=== PATIENT | female | born 1955 | race Caucasian/White ===

== ENCOUNTER 2025-05-21 05:54 | Day surgery (SDC) | payer MEDICARE, OTHER, SELFPAY ==
[2025-05-21] VITALS (13 sets, daily range): BP systolic 142–191; BP diastolic 56–94; PULSE 60–100; RESP 16; TEMP 36.1–36.3; O2SAT 94–100; BMI 37.5
--- OUTSIDE RECORDS SUMMARY | 2025-05-21 06:05 | XMS RPT_ITS | CCD ---
Author Organization [facility] Care Team Providers Care Vice President Integrated Name Role Phone Ld Mon MD Primary Care Provider ELIESER DAWN, DR JAFFE Primary Care Physician SCARLET DAWN, NATHANIEL Attending Unavailable ELVIA DAWN, CHELLE Consulting Unavailable CRISSY DAWN, MIN Attending Unavailable TOMÁS DAWN, DR ORELLANA Admitting Unavailable ELIESER DAWN, DR JAFFE Primary Care Unavailable WILBER BAIRES MD, THOR Consulting Unavailable JOSE DAWN, DR SEAN Ibrahim Consulting Jennifer ALDANA MD, DR PRO WINSTON Consulting Lorava jania DYER MD, MANUEL Gonzales Consulting Unavailable PRO PETERS MD Consulting Unavailable SCARLET DAWN, NATHANIEL Consulting Unavailable THELMA FENTON Referring Unavailable THELMA FENTON Attending Unavailable LD MON Primary Care Unavailable ROBERT FONG Referring Unavailable THELMA FENTON Attending Unavailable LD MON Primary Care Unavailable LD MON MD Primary Care Unavailable LD MON MD Admitting Unavailable LD MON MD Attending Unavailable LD MON MD Consulting Unavailable PROVIDER, UNKNOWN Consulting Unavailable PROVIDER, UNKNOWN Consulting Unavailable PROVIDER, UNKNOWN Consulting Unavailable LD MON MD Consulting Unavailable ALEXANDER AREVALO MD Attending Unavailable ALEXANDER AREVALO MD Primary Care Unavailable ALEXANDER AREVALO MD Admitting Unavailable PROVIDER, UNKNOWN Consulting Unavailable PROVIDER, UNKNOWN Consulting Unavailable PROVIDER, UNKNOWN Consulting Unavailable LD MON MD Consulting Unavailable ALEXANDER AREVALO MD Attending Unavailable ALEXANDER AREVALO MD Primary Care Unavailable ALEXANDER AREVALO MD Admitting Unavailable PROVIDER, UNKNOWN Consulting Unavailable PROVIDER, UNKNOWN Consulting Unavailable PROVIDER, UNKNOWN Consulting Unavailable LD MON MD Primary Care Unavailable LD MON MD Admitting Unavailable LD MON MD Attending Unavailable LD MON MD Consulting Unavailable PROVIDER, UNKNOWN Consulting Unavailable PROVIDER, UNKNOWN Consulting Unavailable PROVIDER, UNKNOWN Consulting Unavailable LD MON MD Primary Care Unavailable LD MON MD Admitting Unavailable LD MON MD Attending Unavailable LD MON MD Consulting Unavailable PROVIDER, UNKNOWN Consulting Unavailable PROVIDER, UNKNOWN Consulting Unavailable PROVIDER, UNKNOWN Consulting Unavailable ZEV HUGGINS Attending Unavailable LD MON MD Consulting Unavailable LD MON MD Referring Unavailable ZEV HUGGINS Admitting Unavailable ZEV HUGGINS Primary Care Unavailable PROVIDER, UNKNOWN Consulting Unavailable PROVIDER, UNKNOWN Consulting Unavailable PROVIDER, UNKNOWN Consulting Unavailable Gabriele DANW, Dr. Nava Attending Provider [phone] Elieser DAWN, Dr. Jaffe Primary Care Provider Elieser DAWN, Dr. Jaffe Referring Provider Ld Mon Referring Unavailable Bud Suazo Attending Unavailable Ld Mon Primary Care Unavailable Bud Suazo Admitting Unavailable Bud Suazo Attending Unavailable Bud Suazo Referring Unavailable Ld Mon Primary Care Unavailable Medications Current Medications Medication Drug Class(es) Dates Sig (Normalized) Sig (Original) apixaban 5 mg oral tablet (4 sources) Factor Xa Inhibitor Start: 05-03-2023 Eliquis 5 mg oral tablet Dose : 5 mg = 1 tab(s), Oral, BID, # 60 tab(s), 5 Refill(s), 95 Start Date: 05/03/23 Status: Ordered Start: 05-03-2023 Eliquis 5 mg o ral tablet Dose : 5 mg = 1 tab(s), Oral, BID, # 60 tab(s), 5 Refill(s), 95 Start Date: 05/03/23 Status: Ordered Start: 04-27-2023 End: 05-03-2023 Eliquis 5 mg oral tablet Dos e : 10 mg = 2 tab(s), Oral, BID, # 24 tab(s), 0 Refill(s), 95 Start Date: 04/27/23 Stop Date: 05/03/23 Status: Ordered CholestOff oral caplet (2 sources) Start: 04-22-2023 CholestOff ora l caplet Oral, qDay, 0 Refill(s) Start Date: 04/22/23 Status: Ordered Clobetasol 0.05 % drops,suspension (1 source) Start: 04-25-2025 Clobetasol 0.0 5 % drops,suspension Active 1 NMA OPHTHALMIC TWICE A DAY April 25, 2025 12:00am clobetasol 0.05% topical foam (2 sources) Start: 04-22-2023 clobetasol 0.0 5% topical foam Apply 1 karime, Topical, qDay, # 50 gram(s), 0 Refill(s), Foam, 95 Start Date: 04/22/23 Status: Ordered fluticasone propionate 0.05 mg/actuat metered dose nasal spray (4 sources) Corticosteroid Start: 04-25-2025 take 50 ug nasal route once daily Fluticasone Propionate (Flonase Allergy Relief) 50 mcg/actuation spray,suspension Active 1 NMA INTRANASAL daily April 25, 2025 12:00am administer into each nostril Start: 04-22-2023 take 1 dose nasal ro phyllis once daily Flonase 50 mcg/inh nasal spray Dose = 1 spray(s), Nostril, each, qDay, 0 Refill(s) Start Date: 04/22/23 Status: Ordered fluticasone prop ionate (FLONASE NASAL) Use in the nose once daily. 0 Active Comment on above: Use in the nose once daily. hydroCHLOROthiazide 12.5 mg / lisinopril 10 mg oral tablet (4 sources) Thiazide Diuretic, Angiotensin Converting Enzyme Inhibitor Start: 04-25-2025 Lisinopril-Hydroc hlorothiazide 10-12.5 mg tablet Active 1 {tbl} PO daily April 25, 2025 12:00am Start: 04-22-2023 take 1 tablet by urmila th once daily hydrochlorothiazide-lisinopril 12.5 mg-1 0 mg oral tablet Dose = 1 tab(s), Oral, Daily, # 30 tab(s), 0 Refill(s) Start Date: 04/22/23 Status: Ordered take 1 tablet by urmila th once daily lisinopril-hydrochlorothiazide 10-12.5 m g per tablet Take 1 tablet by mouth once daily. 0 Active Comment on above: Take 1 tablet by urmila th once daily. ivermectin 10 mg/ml topical cream (2 sources) Antiparasitic, Pediculicide Start: 3 ivermectin 1% topical cream Apply 1 karime, Topical, qDay, # 30 gram(s), 0 Refill(s), Cream, 95 Start Date: 04/22/23 Status: Ordered Ivermectin-Metronidazo l-Niacin 1-1-4 % gel (1 source) Start: 5 Ivermectin-Metroni dazol-Niacin 1-1-4 % gel Active NMA TOPICAL April 25, 2025 12:00am meclizine hydrochloride 25 mg oral tablet (4 sources) Antiemetic Start: 5 take 1 tablet by mouth four times daily as needed Meclizine 25 mg tablet Active 25 mg PO 4 TIMES DAILY as needed April 25, 2025 12:00am Start: 04-22-2023 meclizine 25 m g oral tablet Dose : 25 mg = 1 tab(s), Oral, QID, PRN as needed for dizziness, # 30 tab(s), 0 Refill(s) Start Date: 04/22/23 Status: Ordered take 1 tablet by urmila every eight hours as needed meclizine (ANTIVERT) 25 mg tab Take 25 mg by mouth three times daily as needed (dizziness). 0 Active Comment on above: Take 25 mg by mouth three times daily as needed (dizziness). metoprolol tartrate 50 mg oral tablet (7 sources) beta-Adrenergic Marin Start: 5 take 1 tablet by mouth twice daily Metoprolol Tartrate 50 mg tablet Active 50 mg PO TWICE A DAY April 25, 2025 12:00am Start: 04-22-2023 End: 04-27-2023 metoprolol tartrate 50 mg or al tablet Start: 04/27/23 8:00:00 EDT, Dose = 50 mg, = 1 tab(s), Oral, 1st dose location: [facility], , 04/22/23 18:20:00 EDT Start Date: 04/27/23 Stop Date: 04/27/23 Status: Completed Start: 10-12-2022 take 1 tablet by urmila twice daily metoprolol tartrate, short acting, (LOPRESSOR) 50 mg tablet Take 50 mg by mouth twice daily. 0 10/12/2022 Active take 1 tablet by urmila th twice daily, then take 1 tablet by mouth every twenty-four hours metoprolol succinate XL, long acting, 25 mg 24 hr tablet Take 25 mg by mouth twice daily. 0 Active Comment on above: Take 25 mg by mouth twice daily. Take 50 mg by mouth twice daily. Multiple Vitamins oral capsule (2 sources) Start: 04-22-2023 take 1 capsule by mouth once daily Multiple Vitamins oral capsule Dose = 1 cap(s), Oral, Daily, 0 Refill(s) Start Date: 04/22/23 Status: Ordered TNF-Med (2 sources) Start: 04-22-2023 TNF-Med 0 Refill(s), 95 Start Date: 04/22/23 Status: Ordered Completed/Discontinued Medications Medication Drug Class(es) Dates Sig (Normalized) Sig (Original) clobetasol propionate 0.5 mg/ml topical solution (1 source) Corticosteroid Start: 09-20-2022 Clobetasol Propionate (TEMOVATE) 0.05 % external solution once daily. 0 09/20/2022 Active Comment on above: once daily. ivermectin/metronid azole/niaci (IVERMECTIN-METRONI DAZOL-NIACIN TOPICAL) (1 source) ivermectin/metro ni dazole/niaci (IVERMECTIN-METRON IDAZOL-NIACIN TOPICAL) Apply to affected area as needed. 0 Active Comment on above: Apply to affected ar ea as needed. Phytosterol-Panteth ine (Cholestoff Complete) 300-100 mg capsule (1 source) Start: 04-25-2025 Phytosterol-Pantet karla (Cholestoff Complete) 300-100 mg capsule Active NMA PO April 25, 2025 12:00am phytosterol/panteth ine (CHOLESTOFF COMPLETE ORAL) (1 source) phytosterol/pant et karla (CHOLESTOFF COMPLETE ORAL) Take by mouth once daily. 0 Active Comment on above: Take by mouth once d aily. polyethylene glycol 3350 612710 mg / potassium chloride 2970 mg / sodium bicarbonate 6740 mg / sodium chloride 5860 mg / sodium sulfate 58183 mg powder for oral solution (1 source) Osmotic Laxative Start: 11-17-2022 End: 11-17-2022 peg 3350-Electrolytes (GOLYTELY) 236-22.74-6.74 -5.86 gram suspension Indications: History of colonic polyps Take 4,000 mL by mouth one time only for 1 dose. Refer to printed prep instructions from your provider. 4000 mL 0 11/17/2022 11/17/2022 Comment on above: Take 4,000 mL by urmila th one time only for 1 dose. Refer to printed prep instructions from your provider. Problems Active Problems Problem Classification Problem Date Documented Da te Episodic/Chronic Disorders of lipid metabolism (3 sources) Pure hypercholesterolemi a, unspecified; Translations: [Pure hypercholesterolemi a, unspecified] Onset: 10-08-2024 Chronic Other and unspecified benign neoplasm (1 source) History of polyp of colon; Translations: [Personal history of colonic polyps] Episodic Other hematologic conditions (1 source) Abnormal finding on evaluation procedure; Translations: [Other specified abnormalities of plasma proteins] Episodic Other nutritional; endocrine; and metabolic disorders (1 source) Morbid obesity; Translations: [Morbid (severe) obesity due to excess calories] Chronic Phlebitis; thrombophlebitis and thromboembolism (1 source) 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; Translations: [Chronic embolism and thrombosis of left femoral vein] Chronic Pulmonary heart disease (1 source) Other pulmonary embolism without acute cor pulmonale; Translations: [Other pulmonary embolism without acute cor pulmonale] Episodic Residual codes; unclassified (1 source) Family history of cancer of colon; Translations: [Family history of malignant neoplasm of digestive organs] Episodic Thyroid disorders (1 source) Thyroid nodule; Translations: [Nontoxic single thyroid nodule] 04-25-2025 Chronic Past or Other Problems Problem Classification Problem Date Documented Da te Episodic/Chronic Hemorrhoids (1 source) Internal hemorrhoids; Translations: [Other hemorrhoids] Onset: 6 09-13-2006 Episodic Other and unspecified benign neoplasm (1 source) Personal history of colonic polyps; Translations: [History of colonic polyps] Onset: Episodic Other gastrointestinal disorders (1 source) Diarrhea; Translations: [Diarrhea, unspecified] Onset: 6 09-13-2006 Episodic Residual codes; unclassified (1 source) Family history of malignant neoplasm of gastrointestinal tract; Translations: [Family history of malignant neoplasm of digestive organs] Onset: 6 09-13-2006 Episodic Residual codes; unclassified (1 source) Family history of malignant neoplasm of digestive organs; Translations: [Family history of malignant neoplasm of gastrointestinal tract] Onset: 6 Episodic Results Test Name Value Interpretation Reference Range Facility Supplemental Reporton 2024 Supplemental Report . Pathology Reports Accession: Collected Date/Time: Received Date/Time: Pathologist: [id number] 03/27/2025 08:55 EDT 03/28/2025 08:59 EDT MD ROBERT ARGUETA Supplemental Report SUPPLEMENTAL: AFIRMA-Genomic Sequencing Production Operator Results: Nodule: A, Thyroid, Right Side, 3.1 cm Genomic Sequencing Production Operator: Suspicious Risk of Malignancy: 50% MTC: Negative Parathyroid: Negative BRAF p. V600E c. 1799T>A: Negative RET/PTC1, RET/PTC3: Not Detected AFIRMA XPression [place]: No Variant/Fusion Detected Nodule Result Summary: The result of this 3.1 cm [place] III nodule A is Afirma GSC Suspicious which suggests a risk of cancer of approximately 50%. The Risk of Malignancy of a GSC Suspicious Afirma XA negative sample remains approximately 50%. Clinical correlation and surgical resection should be considered. Complete report scanned into chart. Verified by Diagnostic interpretation performed at [facility] ROBERT ARGUETA MD Sign out Date: 04/25/2025 16:11 Performing Lab: [facility], [address] [place] [address] Pathology Dept Non-Airplane Pilot Crop Dusting Cytology Report CLINICAL INFORMATION: nontoxic single thyroid nodule [id number] DIAGNOSTIC CATEGORY: ATYPIA OF UNDETERMINED SIGNIFICANCE Per [place] Cytology protocol, this specimen has been sent for Afirma Genomic Sequencing Production Operator test. Results to follow in about 2 weeks. SPECIMEN: Right thyroid FNA GROSS DESCRIPTION: # of Monolayers: 1 Volume (ml) 30 Color: fixed clear pink needle rinse in CytoLyt Afirma sample collected for reflex testing SUGGESTION/EDUCATIONAL NOTES: This specimen was evaluated using criteria described in The [place] System for Reporting Thyroid Cytopathology, Second Edition (2018). The following risk of malignancy rates are estimates based on published studies and includes data extrapolation. Individual institutions may have different rates. Actual management may depend on other factors (e.g., clinical. Sonographic) besides the FNA interpretation. Pathology Reports Accession: Collected Date/Time: Received Date/Time: Pathologist: [id number] 03/27/2025 08:55 EDT 03/28/2025 08:59 EDT MD ROBERT ARGUETA SUGGESTION/EDUCATIONAL NOTES: Diagnostic Category Risk of Usual management malignancy (%) Non diagnostic or Unsatisfactory 5-10 Repeat FNA with US guidance Benign 0-3 Clinical and US follow up Atypia of Undetermined 10-30 Repeat FNA, molecular Significance testing or lobectomy Follicular neoplasm or Suspicious 25-40 Molecular testing, for follicular neoplasm lobectomy Suspicious for Malignancy 50-75 Near-total thyroidectomy or lobectomy Malignant 97-99 Near-total thyroidectomy or lobectomy Verified by Pathology Report verified by [facility] Screened by: GEETHA RM Electronically signed by ROBERT ARGUETA MD Sign-Out Date: 03/29/2025 10:45 Performing Lab: [facility], [address] [place] [address] Pathology Dept Disclaimer If ancillary studies were utilized, the following Laboratory Developed Test (LDT) disclaimer will apply: Under CLIA requirements, [facility] is qualified to perform high complexity testing. For all ancillary stains, positive and negative controls stain appropriately. Performance characteristics of immunohistochemical and chromogenic in-situ hybridization tests have been determined by [facility]. These tests are used for clinical purposes, They should not be regarded as investigational or for research. Normal [facility] Surgery Visit Reporton 04-25 Surgery Visit Report [facility] [address] [place] [address] OFFICE VISIT Date of Service: 04/25/25 MR#: [id number] Acct: [id number] Name: ASLHEY TUTTLE Rep #: [id number] : 1955 Provider: Dr. Bud falk MD Age/Sex: 69/F Location: [facility] Status: Signed Intake Vital Signs 04/25/25 13:00 Height 5 ft 4 in Weight: 209 lb 8 oz BMI 35.9 BP 168/82 H Blood Pressure Location Rt brachial Position Sitting Respiration 18 Pulse 72 Pulse Source Monitor Temp 97.5 F L Temp Source Temporal Pulse Oximetry (%) 98 Oxygen Delivery Method room air Intake Visit Reasons: SUSPICIOUS THYROID BIOPSY Chief Complaint: discuss thyroid surgery Is patient in pain?: No Allergies No Known Allergies Allergy (Unverified 04/25/25 12:37) Medications ???Medication ???Instructions ???Recorded ???Confirmed ???Type clobetasol 0.05 % eye 1 drp ophthalmic (eye) BID 5 04/25/25 History drops,suspension fluticasone propionate 50 1 spray intranasal QDAY 04/25/25 0 04/25/25 History mcg/actuation nasal spray,suspension (Flonase Allergy Relief) ivermectin 1 %-metronidazole 1 ea topical 04/25/25 04/25/25 Histo ry %-niacinamide 4 % topical gel lisinopril 10 1 tab PO QDAY 04/25/25 04/25/25 Hi story mg-hydrochlorothiazide 12.5 mg tablet meclizine 25 mg tablet 25 mg PO 4X/DAY PRN 04/25/2504/25 History metoprolol tartrate 50 mg tablet 50 mg PO BID 04/25/25 04/25/25 His tory phytosterol 300 mg-pantethine 100 cap PO 04/25/25 04/25/25 History mg capsule (CholestOff Complete) Have you fallen in the past year?: No PFSH Medical History (Updated 04/25/25 @ 22:[address] Bud Suazo MD) Cataract Thyroid nodule Surgical History (Updated 04/25/25 @ 12:36 by Ghada Burnette LPN) Status post Mohs micrographic surgery for basal cell carcinoma (BCC) Hx laparoscopic cholecystectomy Family History (Updated 04/25/25 @ 13:00 by Ghada Burnette LPN) Mother Thyroid disorder Thyroid cancer Sister Thyroid disorder Brother Thyroid disorder Sister Thyroid disorder Social History (Updated 04/25/25 @ 12:37 by Ghada Burnette LPN) Smoking Status: Never smoker alcohol intake: never substance use type: does not use HPI HPI HPI: Patient is a 69-year-old female who presents for evaluation of a newly diagnosed right thyroid nodule. They are referred for surgical consultation from Dr. Mon. This was discovered incidentally during a workup on 02/08/2025 for patient diagnosis of bronchopneumonia. They do not experience difficulty with swallowing. They do not complain of a new cough. They do not appreciate new voice changes. They did have a history of snoring/sleep apnea. Additionally, their weight has been stable and they do not have a history of weight gain/loss or an inability to lose despite intentional effort. There is no history of recent fatigue. They do not have a history of heat or cold intolerance. Other symptoms include: Pertinent positives: No lower extremity swelling, pertinent negatives: No palpitations or irregular bowel habits. They do have a family history of thyroid disorders and shared that her mother was diagnosed with thyroid cancer and under thyroid hormone supplementation. There is no history of prior radiation exposure. Previous work-up has included thyroid ultrasound. This study was performed on 02/20/2025 and showed a right thyroid lobe measuring 4.9 x 2.1 x 2.6 cm. Within this lobe radiology identified a nodule measuring 3.4 x 1.9 x 2.2 cm and described as a TI-RADS 4 lesion being both solid and hypoechoic. The left thyroid lobe measured 4.9 x 1.4 x 1.6 cm. Within this lobe radiology identified a nodule measuring 2 subcentimeter lesions that were rated TI-RADS 2 and TI-RADS 4 by their sonographic appearance. An FNA has been performed of the dominant right thyroid nodule and final Afirma testing returned suspicious. Other tests include: TSH: 2.41 (10/08/2024) ROS General General: No weight change, appetite, fatigue, colon cancer, breast cancer or weakness HEENT HEENT: Yes eye surgery; No difficulty swallowing, eye injury, swollen glands or hoarseness Endo Endocrine: No thyroid disease, diabetes mellitus, thyroid cancer, Hair loss, heat intolerance or cold intolerance Skin Skin: No rash or changing moles Musc Musculoskeletal: No back problems, arthritis, rheumatoid arthritis, gout or joint pain Cardio Cardiovascular: Yes high blood pressure; No murmur, pacemaker, heart disease, atrial fibrillation, heart attack, heart stent, palpitations, shortness of breath with exertion or chest pain Psych Psychiatric: No depression, anxiety or hearing voices Resp Respiratory: No shortness of breath, No sleep apnea, No cough, (more content not included)... Normal [facility] CBC (NO DIFF)on 04-22-2025 CBC panel Auto (Bld) Normal [facility] Comment on above: Result Comment: CBC( WITHOUT DIFFERENTIAL) Performed By: #### 2 [id number] #### [facility],[address] [place] [address]246 Erythrocyte distribution width (RBC) [Ratio] 13.3 % Normal 12.0 - 15.6 [facility] Comment on above: Performed By: #### 2 [id number] #### [facility],[address] [place] [address] 09697 Hematocrit (Bld) [Volume fraction] 39.2 % Normal 34.0 - 46.0 [facility] Comment on above: Performed By: #### 2 [id number] #### [facility],[address] [place] [address] 73665 Hemoglobin (Bld) [Mass/Vol] 13.6 g/dL Normal 12.0 - 16.0 [facility] Comment on above: Performed By: #### 2 [id number] #### [facility],[address] [place] [address] 97704 MCH (RBC) [Entitic mass] 31 pg Normal 27 - 33 [facility] Comment on above: Performed By: #### 2 [id number] #### [facility],[address] [place] [address] 59574 MCHC 35 X10 3 Normal 32 - 36 [facility] Comment on above: Performed By: #### 2 36024 #### [facility],[address] [place] [address] 68931 MCV (RBC) [Entitic vol] 88 fL Normal 80 - 99 [facility] Comment on above: Performed By: #### 2 [id number] #### [facility],[address] [place] [address] 85522 PLATELET 237 x10EE3/UL Normal 150 - 450 [facility] Comment on above: Performed By: #### 2 [id number] #### [facility],[address] [place] [address] 10534 Platelet mean volume (Bld) [Entitic vol] 8.3 fL Normal 6.6 - 10.5 [facility] Comment on above: Performed By: #### 2 [id number] #### [facility],[address] [place] [address] 10825 RBC 4.47 x 10EE6/UL Normal 4.10 - 5.30 [facility] Comment on above: Performed By: #### 2 [id number] #### [facility],[address] [place] [address] 60871 WBC 5.7 x 10EE3/UL Normal 4.5 - 10.8 [facility] Comment on above: Performed By: #### 2 [id number] #### [facility],[address] [place] [address] 43822 CMP with eGFRon 04-22-2025 AGE 69 years Normal [facility] Comment on above: Performed By: #### 2 [id number] #### [facility],[address] [place] [address] 55893 Albumin [Mass/Vol] 3.4 g/dL Normal 3.4 - 5.0 [facility] Comment on above: Performed By: #### 2 22485 #### [facility],[address] [place] [address] 95376 Albumin/Globulin [Mass ratio] 1.1 {ratio} Normal 0.9 - 1.6 [facility] Comment on above: Performed By: #### 2 13242 #### [facility],[address] [place] [address] 84043 ALK PHOS 87 U/L Normal 46 - 116 [facility] Comment on above: Performed By: #### 2 [id number] #### [facility],[address] [place] [address] 12809 ALT [Catalytic activity/Vol] 21 U/L Normal 16 - 63 [facility] Comment on above: Performed By: #### 2 [id number] #### [facility],[address] [place] [address] 94157 Anion gap [Moles/Vol] 12 mmol/L Normal 10 - 20 [facility] Comment on above: Performed By: #### 2 [id number] #### [facility],[address] [place] [address] 27134 AST [Catalytic activity/Vol] 13 U/L Normal 13 - 39 [facility] Comment on above: Performed By: #### 2 [id number] #### [facility],[address] [place] [address] 70261 B/C RATIO 32 ratio High 0 - 30 [facility] Comment on above: Performed By: #### 2 89631 #### [facility],[address] [place] [address] 46185 Bilirubin [Mass/Vol] 0.5 mg/dL Normal 0.2 - 1.0 [facility] Comment on above: Performed By: #### 2 62192 #### [facility],[address] [place] [address] 36646 Calcium [Mass/Vol] 9.1 mg/dL Normal 8.5 - 10.1 [facility] Comment on above: Performed By: #### 2 19664 #### [facility],[address] [place] [address] 65068 Chloride [Moles/Vol] 109 mmol/L High 98 - 107 [facility] Comment on above: Performed By: #### 2 00853 #### [facility],[address] [place] [address] 82035 CMP with eGFR Normal [facility] Comment on above: Result Comment: COMP REHENSIVE METABOLIC PANEL Performed By: #### 2 95446 #### [facility],[address] [place] [address] 55763 CO2 [Moles/Vol] 28.2 mmol/L Normal 21.0 - 32.0 [facility] Comment on above: Performed By: #### 2 12906 #### [facility],[address] [place] [address] 09543 Creatinine [Mass/Vol] 0.73 mg/dL Normal 0.55 - 1.02 [facility] Comment on above: Performed By: #### 2 23048 #### [facility],[address] [place] [address] 91953 GFR/1.73 sq M.predicted among non-blacks MDRD (S/P/Bld) [Vol rate/Area] mL/min/{1.73_m2} Normal 60 - 999 [facility] Comment on above: Performed By: #### 2 42357 #### [facility],[address] [place] [address] Result Comment: ACCO RDING TO THE NATIONAL KIDNEY DISEASE EDUCATION PROGRAM(NKDE), A NORMAL eGFR IS A VALUE GREATER THAN OR EQUAL TO 60 ML/MIN/1.73 SQ METERS. CHRONIC KIDNEY DISEASE: <60mL/MIN/1.73 SQ METERS KIDNEY FAILURE: <15mL/MIN/1.73 SQ METERS THIS TEST SHOULD ONLY BE USED FOR PATIENTS 18 YEARS OF AGE AND OLDER. Globulin (S) [Mass/Vol] 3.0 g/dL Normal 1.5 - 3.8 [facility] Comment on above: Performed By: #### 2 76703 #### [facility],[address] [place] [address] 25001 Glucose [Mass/Vol] 93 mg/dL Normal 74 - 106 [facility] Comment on above: Performed By: #### 2 63668 #### [facility],[address] [place] [address] 21239 Potassium [Moles/Vol] 3.8 mmol/L Normal 3.5 - 5.1 [facility] Comment on above: Performed By: #### 2 38719 #### [facility],[address] [place] [address] 36351 Protein [Mass/Vol] 6.4 g/dL Normal 6.4 - 8.2 [facility] Comment on above: Performed By: #### 2 89125 #### [facility],[address] [place] [address] 43836 Sodium [Moles/Vol] 145 mmol/L Normal 136 - 145 [facility] Comment on above: Performed By: #### 2 01956 #### [facility],[address] [place] [address] 44451 Urea nitrogen [Mass/Vol] 23 mg/dL High 7 - 18 [facility] Comment on above: Performed By: #### 2 08158 #### [facility],[address] [place] [address] 71814 LIPID PROFILEon 04-22-2025 Cholesterol [Mass/Vol] 251 mg/dL High 0 - 240 [facility] Comment on above: Performed By: #### 2 99820 #### [facility],[address] [place] [address] 90595 Cholesterol in HDL [Mass/Vol] 62 mg/dL High 40 - 60 [facility] Comment on above: Performed By: #### 2 71315 #### [facility],[address] [place] [address] 05460 Cholesterol in LDL [Mass/Vol] 172 mg/dL High 0 - 129 [facility] Comment on above: Performed By: #### 2 08642 #### [facility],[address] [place] [address] 12424 Cholesterol.total/Cho lesterol in HDL [Mass ratio] 4.0 {ratio} Normal 0.0 - 5.0 [facility] Comment on above: Performed By: #### 2 84022 #### [facility],[address] [place] [address] 88165 Lipid 1996 panel Normal [facility] Comment on above: Result Comment: LIPI D PROFILE Performed By: #### 2 41402 #### [facility],[address] [place] [address] 58880 Triglyceride [Mass/Vol] 87 mg/dL Normal 0 - 150 [facility] Comment on above: Performed By: #### 2 74924 #### [facility],[address] [place] [address] 44222 3D MAMM BILAT SCREENon 03-29 3D MAMM BILAT SCREEN [place] [address] Patient: ASHLEY TUTTLE Phone#: : 1955 Age: 69 Gender: F Pt. Type: Out Account: [id number] Location: [facility] Ordering: LD MON Exam Date: 03/29/2025/14:45 Family Phys: Charge Code: [id number] Physician: Freeborn Order #: [id number] Dose#: PROCEDURE: BILATERAL SCREENING BREAST TOMOSYNTHESIS MAMMOGRAM WITH CAD COMPARISON: [facility], 3D BILAT SCREEN, 02/01/2023, 13:56. [facility], 3D BILAT SCREEN, 03/12/2024, 14:08. INDICATIONS: Screening. BREAST COMPOSITION: There are scattered areas of fibroglandular density FINDINGS: DIAGNOSTIC CATEGORY 1--NEGATIVE NO CHANGE FROM COMPARISON ASSESSMENT. RIGHT BREAST: No significant suspicious finding. No significant change has occurred. LEFT BREAST: No significant suspicious finding. No significant change has occurred. RECOMMENDATIONS: ROUTINE MAMMOGRAM AND CLINICAL EVALUATION IN 12 MONTHS. PLEASE NOTE: A NORMAL MAMMOGRAM DOES NOT EXCLUDE THE POSSIBILITY OF BREAST CANCER. A CLINICALLY SUSPICIOUS PALPABLE LUMP SHOULD BE BIOPSIED. THIS FACILITY UTILIZES A REMINDER SYSTEM TO ENSURE THAT ALL PATIENTS RECEIVE REMINDER LETTERS FOR APPOINTMENTS. THIS INCLUDES REMINDERS FOR ROUTINE MAMMOGRAMS, DIAGNOSITC MAMMOGRAMS, OR OTHER BREAST IMAGING INTERVENTIONS WHEN APPROPRIATE. THIS PATIENT WILL BE PLACED IN THE APPROPRIATE REMINDER SYSTEM. Dictated by: Deborah Swift MD on 03/29/2025 at 14:59 Approved by: Deborah Swift MD on 03/29/2025 at 15:04 Normal [facility] Non-Airplane Pilot Crop Dusting Cytology Reporton Non-Airplane Pilot Crop Dusting Cytology Report . Pathology Reports Accession: Collected Date/Time: Received Date/Time: Pathologist: [id number] 03/27/2025 08:55 EDT 03/28/2025 08:59 MD ROBERT MARIO Non-Airplane Pilot Crop Dusting Cytology Report CLINICAL INFORMATION: nontoxic single thyroid nodule [id number] DIAGNOSTIC CATEGORY: ATYPIA OF UNDETERMINED SIGNIFICANCE Per [place] [facility]ology protocol, this specimen has been sent for [employer] Operator test. Results to follow in about 2 weeks. SPECIMEN: Right thyroid FNA GROSS DESCRIPTION: # of Monolayers: 1 Volume (ml) 30 Color: fixed clear pink needle rinse in CytoLyt Afirma sample collected for reflex testing SUGGESTION/EDUCATIONAL NOTES: This specimen was evaluated using criteria described in The [place] System for Reporting Thyroid Cytopathology, Second Edition (2018). The following risk of malignancy rates are estimates based on published studies and includes data extrapolation. Individual institutions may have different rates. Actual management may depend on other factors (e.g., clinical. Sonographic) besides the FNA interpretation. Diagnostic Category Risk of Usual management malignancy (%) Non diagnostic or Unsatisfactory 5-10 Repeat FNA with US guidance Benign 0-3 Clinical and US follow up Atypia of Undetermined 10-30 Repeat FNA, molecular Significance testing or lobectomy Follicular neoplasm or Suspicious 25-40 Molecular testing, for follicular neoplasm lobectomy Suspicious for Malignancy 50-75 Near-total thyroidectomy or lobectomy Malignant 97-99 Near-total thyroidectomy or lobectomy Verified by Pathology Report verified by [facility] Screened by: GEETHA Electronically signed by ROBERT ARGUETA MD Sign-Out Date: 03/29/2025 10:45 Performing Lab: [facility], [address] [place] [address] Pathology Dept Disclaimer If ancillary studies were utilized, the following Laboratory Developed Test (LDT) disclaimer will apply: Pathology Reports Accession: Collected Date/Time: Received Date/Time: Pathologist: [id number] 03/27/2025 08:55 EDT 03/28/2025 08:59 MD ROBERT MARIO Disclaimer Under CLIA requirements, [facility] Pathology Laboratory is qualified to perform high complexity testing. For all ancillary stains, positive and negative controls stain appropriately. Performance characteristics of immunohistochemical and chromogenic in-situ hybridization tests have been determined by [facility] Pathology Laboratory. These tests are used for clinical purposes, They should not be regarded as investigational or for research. Normal [facility] FINE NEEDLE ASPIR W/ US GUID E 1ST LESIONon 03-27-2025 FINE NEEDLE ASPIR W/ US GUIDE 1ST LESION [address] [address] Patient: ASHLEY TUTTLE Phone#: : 1955 Age: 69 Gender: F Pt. Type: Out Account: [id number] Location: 052 Ordering: ALEXANDER MICKEY Exam Date: 03/27/2025/12:56 Family Phys: LD OMN Charge Code: [id number] Physician: Freeborn Order #: [id number] Dose#: This report includes an Addendum and supersedes previous reports for this exam. PROCEDURE: FINE NEEDLE ASPIRATION WITH US GUIDANCE COMPARISON: None. INDICATIONS: Right thyroid nodule DESCRIPTION: The patient was informed of the nature of the procedure, alternatives and risks. Questions were answered and informed consent obtained. Using ultrasound the nodule was localized. The skin was marked. The skin was prepped and draped in the usual manor. Lidocaine was administered locally. Ultrasound-guided fine needle aspiration of the right thyroid nodule was performed in the usual sterile manner. FINDINGS: SPECIMEN #, LOCATION: Large right thyroid nodule measuring 3.1 x 2.1 x 2.2 cm. Five passes were performed. NEEDLE: 22 gauge and 25 gauge needles were used. MEDICATION: Superficial and deep 2% lidocaine. COMPLICATIONS: None. PATHOLOGY LAB: Specimen submitted to cytology CONCLUSION: Uneventful fine needle aspiration of right thyroid nodule. Dictated by: Shruti Cobos MD on 03/27/2025 at 15:03 Approved by: Shruti Cobos MD on 03/27/2025 at 15:08 ADDENDUM: Right thyroid fine needle aspiration performed 03/27/2025. The nodule that was aspirated is consistent with the nodule on the 02/20/2025 ultrasound which measured 3.1 x 2.1 x 2.2 centimeters. Dictated by: Shruti Cobos MD on 04/08/2025 at 16:33 Approved by: Shruti Cobos MD on 04/08/2025 at 16:36 Normal [facility] US THYROIDon 02-20-2025 THYROID [place] [address] Patient: ASHLEY TUTTLE Phone#: : 1955 Age: 69 Gender: F Pt. Type: Out Account: [id number] Location: [facility] Ordering: ALEXANDER AREVALO Exam Date: 02/20/2025/12:50 Family Phys: LD MON Charge Code: [id number] Physician: Freeborn Order #: [id number] Dose#: PROCEDURE: THYROID ULTRASOUND COMPARISON: None. INDICATIONS: Right thyroid nodule TECHNIQUE: High-resolution ultrasound was performed of the thyroid gland. FINDINGS: RIGHT LOBE: There is a large solid hypoechoic nodule in the right lobe of the thyroid measuring 34 x 19 x 22 cm, a TR 4 nodule. The right lobe of the thyroid measures 4.9 x 2.1 x 2.6 cm. LEFT LOBE: There are 2 nodules in the left lobe. In the superior lobe near the isthmus a solid hypoechoic nodule measures 9 x 6 x 9 mm, TR 4 nodule. In the inferior thyroid there is a solid and cystic nodule measuring 5 x 4 x 5 mm, TR 2 nodule, not suspicion. The left lobe of the thyroid measures 4.9 by 1.4 x 1.6 cm. ISTHMUS: Normal. No visible mass, cyst, calcification, enlargement, or abnormal echotexture. Isthmus measures 4.0 cm. OTHER: None. CONCLUSION: 1. Right TR 4, recommend fine needle aspiration 2. Left TR 4 nodule, not meeting criteria for follow-up Dictated by: Shruti Cobos MD on 02/20/2025 at 14:01 Approved by: Shruti Cobos MD on 02/20/2025 at 14:10 Normal [facility] CBC + DIFFon 02-07-2025 Baso # 0.02 x10EE3/UL Normal 0.00 - 0.10 [facility] Comment on above: Performed By: #### 2 10097 #### [facility],[address] [place], [place] [id number] Basophils/100 WBC (Bld) 0.3 % Normal 0.0 - 2.0 [facility] Comment on above: Performed By: #### 2 36103 #### [facility],[address] [place] [address] CBC + DIFF Normal [facility] Comment on above: Result Comment: CBC- COMPLETE BLOOD COUNT Performed By: #### 2 44427 #### [facility],[address] [place] [address] EO # 0.10 x10EE3/UL Normal 0.00 - 0.50 [facility] Comment on above: Performed By: #### 2 95479 #### [facility],[address] [place] [address] Eosinophils/100 WBC (Bld) 1.4 % Normal 0.0 - 7.0 [facility] Comment on above: Performed By: #### 2 96180 #### [facility],[address] [place] [address] Erythrocyte distribution width (RBC) [Ratio] 13.4 % Normal 12.0 - 15.6 [facility] Comment on above: Performed By: #### 2 52251 #### [facility],[address] [place] [address] Hematocrit (Bld) [Volume fraction] 40.5 % Normal 34.0 - 46.0 [facility] Comment on above: Performed By: #### 2 84307 #### [facility],[address] [place], [place] [address] Hemoglobin (Bld) [Mass/Vol] 13.7 g/dL Normal 12.0 - 16.0 [facility] Comment on above: Performed By: #### 2 37522 #### [facility],[address] [place], [place] [address] Lymph # 0.53 x10EE3/UL Low 0.80 - 2.80 [facility] Comment on above: Performed By: #### 2 49681 #### [facility],[address] [place] [address] 81398 Lymphocytes/100 WBC (Bld) 7.7 % Low 20.0 - 45.0 [facility] Comment on above: Performed By: #### 2 58138 #### [facility],[address] [place] [address] 90527 MANUAL DIFF N/A Normal [facility] Comment on above: Performed By: #### 2 16566 #### [facility],[address] [place] [address] 15136 MCH (RBC) [Entitic mass] 29 pg Normal 27 - 33 [facility] Comment on above: Performed By: #### 2 89382 #### [facility],[address] [place] [address] MCHC 34 X10 3 Normal 32 - 36 [facility] Comment on above: Performed By: #### 2 10325 #### [facility],[address] [place] [address] 33159 MCV (RBC) [Entitic vol] 87 fL Normal 80 - 99 [facility] Comment on above: Performed By: #### 2 01144 #### [facility],[address] [place] [address] 34156 [place] # 0.39 x10EE3/UL Normal 0.20 - 1.00 [facility] Comment on above: Performed By: #### 2 63402 #### [facility],[address] [place] [address] 60525 MONOS % 5.6 % Normal 0.0 - 10.0 [facility] Comment on above: Performed By: #### 2 16535 #### [facility],[address] [place] [address] 24257 Morphology Chris (Bld) [Interp] N/A Normal [facility] Comment on above: Performed By: #### 2 40526 #### [facility],[address] [place] [address] 01371 Neut # 5.86 x10EE3/UL Normal 1.50 - 7.10 [facility] Comment on above: Performed By: #### 2 45068 #### [facility],[address] [place] [address] 13661 Neutrophils/100 WBC (Bld) 85.0 % High 46.0 - 76.0 [facility] Comment on above: Performed By: #### 2 48498 #### [facility],[address] [place] [address] 69984 PLATELET 177 x10EE3/UL Normal 150 - 450 [facility] Comment on above: Performed By: #### 2 86211 #### [facility],[address] [place] [address] 90953 Platelet mean volume (Bld) [Entitic vol] 7.2 fL Normal 6.6 - 10.5 [facility] Comment on above: Result Comment: AUTO MATED DIFFERENTIAL Performed By: #### 2 31500 #### [facility],[address] [place] [address] 45990 RBC 4.67 x 10EE6/UL Normal 4.10 - 5.30 [facility] Comment on above: Performed By: #### 2 65685 #### [facility],[address] [place] [address] 42011 WBC 6.9 x 10EE3/UL Normal 4.5 - 10.8 [facility] Comment on above: Performed By: #### 2 12964 #### [facility],[address] [place] [address] 54669 CMP with eGFRon 02-07-2025 AGE 69 years Normal [facility] Comment on above: Performed By: #### 2 39048 #### [facility],[address] [place] [address] 84137 Albumin [Mass/Vol] 3.4 g/dL Normal 3.4 - 5.0 [facility] Comment on above: Performed By: #### 2 27283 #### [facility],[address] [place] [address] 96915 Albumin/Globulin [Mass ratio] 1.0 {ratio} Normal 0.9 - 1.6 [facility] Comment on above: Performed By: #### 2 22573 #### [facility],[address] [place] [address] 84709 ALK PHOS 92 U/L Normal 46 - 116 [facility] Comment on above: Performed By: #### 2 93916 #### [facility],[address] [place] [address] 99160 ALT [Catalytic activity/Vol] 21 U/L Normal 16 - 63 [facility] Comment on above: Performed By: #### 2 34671 #### [facility],[address] [place] [address] 90521 Anion gap [Moles/Vol] 12 mmol/L Normal 10 - 20 [facility] Comment on above: Performed By: #### 2 64068 #### [facility],[address] [place] [address] 76478 AST [Catalytic activity/Vol] 11 U/L Low 13 - 39 [facility] Comment on above: Performed By: #### 2 19253 #### [facility],[address] [place] [address] 17326 B/C RATIO 31 ratio High 0 - 30 [facility] Comment on above: Performed By: #### 2 87371 #### [facility],[address] [place] [address] 56747 Bilirubin [Mass/Vol] 0.7 mg/dL Normal 0.2 - 1.0 [facility] Comment on above: Performed By: #### 2 04667 #### [facility],[address] [place] [address] 12508 Calcium [Mass/Vol] 8.5 mg/dL Normal 8.5 - 10.1 [facility] Comment on above: Performed By: #### 2 61527 #### [facility],[address] [place], [place] [address] Chloride [Moles/Vol] 104 mmol/L Normal 98 - 107 [facility] Comment on above: Performed By: #### 2 55219 #### [facility],[address] [place] [address] CMP with eGFR Normal [facility] Comment on above: Result Comment: COMP REHENSIVE METABOLIC PANEL Performed By: #### 2 75069 #### [facility],[address] [place] [address] CO2 [Moles/Vol] 25.2 mmol/L Normal 21.0 - 32.0 [facility] Comment on above: Performed By: #### 2 42636 #### [place] [address] Creatinine [Mass/Vol] 0.81 mg/dL Normal 0.55 - 1.02 [facility] Comment on above: Performed By: #### 2 04681 #### [facility],[address] [place] [address] GFR/1.73 sq M.predicted among non-blacks MDRD (S/P/Bld) [Vol rate/Area] mL/min/{1.73_m2} Normal 60 - 999 [facility] Comment on above: Performed By: #### 2 17300 #### [facility],[address] [place] [address] Result Comment: ACCO RDING TO THE NATIONAL KIDNEY DISEASE EDUCATION PROGRAM(NKDE), A NORMAL eGFR IS A VALUE GREATER THAN OR EQUAL TO 60 ML/MIN/1.73 SQ METERS. CHRONIC KIDNEY DISEASE: <60mL/MIN/1.73 SQ METERS KIDNEY FAILURE: <15mL/MIN/1.73 SQ METERS THIS TEST SHOULD ONLY BE USED FOR PATIENTS 18 YEARS OF AGE AND OLDER. Globulin (S) [Mass/Vol] 3.3 g/dL Normal 1.5 - 3.8 [facility] Comment on above: Performed By: #### 2 92764 #### [facility],[address] [place] [address] 58408 Glucose [Mass/Vol] 111 mg/dL High 74 - 106 [facility] Comment on above: Performed By: #### 2 53056 #### [facility],[address] [place] [address] 52267 Potassium [Moles/Vol] 3.9 mmol/L Normal 3.5 - 5.1 [facility] Comment on above: Performed By: #### 2 40914 #### [facility],[address] [place] [address] 79643 Protein [Mass/Vol] 6.7 g/dL Normal 6.4 - 8.2 [facility] Comment on above: Performed By: #### 2 86567 #### [facility],[address] [place] [address] 25418 Sodium [Moles/Vol] 137 mmol/L Normal 136 - 145 [facility] Comment on above: Performed By: #### 2 00684 #### [facility],[address] [place] [address] 97257 Urea nitrogen [Mass/Vol] 25 mg/dL High 7 - 18 [facility] Comment on above: Performed By: #### 2 13446 #### [facility],[address] [place] [address] 28100 CORONAVIRUS (SARS) ANTIGEN T ESTon 02-07-2025 EXTERNAL QC DONE? YES Normal [facility] Comment on above: Performed By: #### 2 98941 #### [facility],[address] [place] [address] 39273 INTERNAL CONTROL PASS Normal [facility] Comment on above: Performed By: #### 2 39865 #### [facility],[address] [place] [address] 52370 SARS ANTIGEN Negative Normal NORMAL: NEGATIVE [facility] Comment on above: Performed By: #### 2 59283 #### [facility],[address] [place] [address] 42500 SEND TO ? NO Normal [facility] Comment on above: Result Comment: SARS -CoV-2 THIS TEST IS BEING USED UNDER THE FDA EUA PROCEDURE. THIS ASSAY HAS BEEN VALIDATED AT [facility] FOR USE WITH NASAL AND NASOPHARYNGEAL SWAB SPECIMENS. INTERPRETIVE DATA TEST RESULTS SHOULD ALWAYS BE CONSIDERED IN THE CONTEXT OF CLINICAL OBSERVATIONS AND EPIDEMIOLOGICAL DATA IN MAKING FINAL DIAGNOSIS AND PATIENT MANAGEMENT DECISIONS. PATIENT MANAGEMENT SHOULD FOLLOW CURRENT CDC GUIDELINES. THE PITO SARS ANTIGEN JOSE DOES NOT DIFFERENTIATE BETWEEN SARS-CoV & SARS-CoV-2. A POSITIVE TEST RESULT INDICATES THE PRESENCE OF SARS-CoV-2 NUCLEOCAPSID PROTEIN ANTIGEN, AND THE PATIENT IS INFECTED WITH THE VIRUS AND PRESUMED TO BE CONTAGIOUS. A NEGATIVE TEST RESULT FOR THIS TEST MEANS THAT SARS-CoV-2 NUCLEOCAPSID PROTEIN ANTIGEN WAS NOT PRESENT IN THE SPECIMEN ABOVE THE LIMIT OF DETECTION. HOWEVER, A NEGATIVE RESULT DOES NOT RULE OUT COVID-19 AND SHOULD NOT BE USED THE SOLE BASIS FOR TREATMENT OR PATIENT MANAGEMENT DECISIONS. A NEGATIVE RESULT DOES NOT EXCLUDE THE POSSIBILITY OF COVID-19. NEGATIVE RESULTS, FROM PATIENTS WITH SYMPTOM ONSET BEYOND FIVE DAYS, SHOULD BE TREATED PRESUMPTIVE AND CONFIRMATION WITH A MOLECULAR ASSAY, IF NECESSARY, FOR PATIENT MANAGEMENT, MAY BE PERFORMED. WHEN DIAGNOSTIC TESTING IS NEGATIVE, THE POSSIBLILTY OF A FALSE NEGATIVE RESULT SHOULD BE CONSIDERED IN THE CONTEXT OF A PATIENT'S RECENT EXPOSURES AND THE PRESENCE OF CLINICAL SIGNS AND SYMPTOMS CONSISTENT WITH COVID-19. THE POSSIBILITY OF A FALSE NEGATIVE RESULT SHOULD ESPECIALLY BE CONSIDERED IF THE PATIENT'S RECENT EXPOSURES OR CLINICAL PRESENTATION INDICATE THAT COVID-19 IS LIKELY, AND DIAGNOSTIC TESTS FOR OTHER CAUSES OF ILLNESS (e.g., OTHER RESPIRATORY ILLNESS) ARE NEGATIVE. IF COVID-19 IS STILL SUSPECTED BASED ON EXPOSURE HISTORY TOGETHER WITH OTHER CLINICAL FINDINGS, RE-TESTING SHOULD BE CONSIDERED BY HEALTHCARE PROVIDERS IN CONSULTATION WITH PUBLIC HEALTH AUTHORITIES. Performed By: #### [id number] #### [facility],[address] [place] [id number] CHEST (PE PROTOCOL)on CT CHEST (PE PROTOCOL) [place] [id number] Patient: ASHLEY TUTTLE Phone#: : [phone] Age: 69 Gender: F Pt. Type: ER Account: [id number] Location: 052 Ordering: CHONG ANDRES Exam Date: 02/07/2025/9:13 Family Phys: LD MON Charge Code: [id number] Physician: Freeborn Order #: [id number] Dose#: [id number] PROCEDURE: CT CHEST WITH CONTRAST FOR PE COMPARISON: [facility], CT, CHEST PE W CON, 07/29/2023, 6:55. INDICATIONS: Pulmonary disease. TECHNIQUE: After obtaining the patient's consent, CT images were obtained with non-ionic intravenous contrast material. Multi-planar images were created to optimize visualization of vascular anatomy with MPR/MIPS and 3D imaging. All CT scans at this facility use dose modulation, iterative reconstruction, and/or weight based dosing when appropriate to reduce radiation dose to as low as reasonably achievable. IV CONTRAST: Omnipaque 350,100ml TOTAL DOSE: 8.90 CTDIvol(mGy) FINDINGS: VASCULATURE: No pulmonary embolism. AORTA: No aortic aneurysm LUNGS: Patchy ill-defined nodules in the left upper lobe posteriorly and in the superior aspect of the left lower lobe. Findings are consistent with multifocal infiltrates. Left lower lobe bronchial wall thinning, series 4, image 40. Dependent changes in the right lung. TALYA: There are reactive hilar lymph nodes. MEDIASTINUM: There are reactive mediastinal lymph nodes. CARDIAC: Cardiomegaly PLEURA: Normal. No mass or effusion. CHEST WALL: Normal. No mass or axillary adenopathy. LIMITED ABDOMEN: Normal. Limited images of the upper abdomen are unremarkable. BONES: Normal. No bony lesion or fracture. OTHER: Enlarged heterogeneous right lobe of the thyroid measuring 4.1 x 1.9 x 2.3 cm. CONCLUSION: 1. Left multifocal infiltrates/pneumonia. Continued Report - Page 2 of 2 Patient: ASHLEY TUTTLE Phone#: : 1955 Age: 69 Gender: F Pt. Type: ER Account: [id number] Location: 052 Ordering: CHONG ANDRES Exam Date: 02/07/2025/9:13 Family Phys: LD MON Charge Code: 725218 Physician: Freeborn Order #: [id number] Dose#: [id number] 2. Enlarged heterogeneous right lobe of the thyroid, suspect large underlying nodule. Recommend dedicated thyroid ultrasound for further characterization. Dictated by: Shruti Cobos MD on 02/07/2025 at 9:53 Approved by: Shruti Cobos MD on 02/07/2025 at 10:00 Normal [facility] D-DIMER, QUANTITATIVEon 04-0 D-DIMER QUANT 267 ng/ml High 0 - 230 [facility] Comment on above: Performed By: #### [id number] #### [facility],[address] [place], [place] [address] D-DIMER, QUANTITATIVE Normal [facility] Comment on above: Result Comment: CECI T D-DIMER Performed By: #### [id number] #### [facility],[address] [place], [place] [address] ED MED ADMINISTRATION DETAIL on 02-07-2025 ED MED ADMINISTRATION DETAIL Yarn Twister Medication [place] [address] [id number] 02/07/2025 Patient: ASHLEY TUTTLE Sex: Female : 1955 Age: 69y MEASUREMENTS: Wt: 95.3 kg, Ht/Tommy: 63.0 in, BMI: 37.20 ALLERGIES: No known drug allergies Medication Ordered Medication Administration Date/Time Albuterol-Ipratropiu 08:51 04 Albuterol-Ipratropium (DuoNeb) 3mg/0.5mg Neb Tx 3 Given m (DuoNeb) mL given. Given by the respiratory therapist. Allergies verified and 08:51 02/07/2025 3mg/0.5mg Neb Tx confirmed 5 rights. Information reviewed with patient. - 08:51 Aj Griffith, 3 mL (NOW x1) Raimundo SullivanT. R.R.T. Not Scanned CefTRIAXone 09:38 0403 CefTRIAXone (Rocephin) IVPB 2gm/50ml NS 2 g Started (Rocephin) IVPB started at 100 mL/hr diluted in sodium chloride IVPB 0.9 % 09:38 02/07/2025 2gm/50ml NS 2 g Minibag+ 50 mL via Site# 1. Allergies verified and confirmed 5 Rob Eastep, R.N. diluted in sodium rights. IV patency established. IV site checked: no pain, redness, or Stopped chloride IVPB 0.9 % swelling. IV flushed thoroughly pre-medication administration. 10:10 02/07/2025 Minibag+ 50 mL at Information reviewed with patient including reason for taking this Rob Eastep, R.N. 100 mL/hr (NOW x1) medication, signs of allergic reaction and precautions. Verbalizes Scanned understanding. Completed per protocol. - 09:39 Rob Eastep, R.N. 10:10 02/07 Medication Discontinued: IV completed. Total amount infused: 50 mL. - 10:28 Rob Eastep, R.N. 1 of 2 Yarn Twister Medication Ordered Medication Administration Date/Time MethylPREDNISolo 09:35 02/07 MethylPREDNISolone Sodium Succ (Solu-Medrol) IVP Given ne Sodium Succ 125 mg given via Site# 1. Allergies verified and confirmed 5 rights. 09:35 02/07/2025 (Solu-Medrol) IVP IV patency established. IV site checked: no pain, redness, or Rob Eastep, R.N. 125 mg (NOW x1) swelling. IV flushed thoroughly pre-medication administration. IVP Scanned given by nurse. Information reviewed with patient including reason for taking this medication, signs of allergic reaction and precautions. Verbalizes understanding. - 09:38 Rob Eastep, R.N. 2 of 2 Normal [facility] ED NURSES CLINICAL NOTEon ED NURSES CLINICAL NOTE Nurse Narrative Nurse Clinical Narrative [address] [place] [address] [id number] 02/07/2025 07:11:00 Patient: ASHLEY TUTTLE Sex: Female : 1955 Age: 69y Disposition: Discharge to Home Disposition Decision Time: 10:09 02/07/2025 Departure Time: 10:02/07/2025 TRIAGE Arrived by private vehicle. Historian: (patient). Unaccompanied. Primary physician (Elieser). Triage time: 07:02/07/2025. Acuity: LEVEL 3. Chief Complaint: COUGH. Onset. (4 days). The patient has had difficulty breathing. SEPSIS SCREEN: NEGATIVE. SIRS criteria negative. No possible sources of infection. -- 07:02/07/25 EDT Brock Aldana R.N. 07:02/07/25. BP: 212/94 MAP: 133. HR: 62. RR: 18. O2 saturation: 92% Temperature: 99.7 F. Pain level now 0/10. -- 07:02/07/25 GENEVA Aldana R.N. Measurements: 07:02/07/25 Wt: 95.3 kg, Ht/Tommy: 63.0 in, BMI: 37.20 -- 07:02/07/25 GENEVA Aldana R.N. Medications: metoprolol tartrate 50 mg tablet: 1 tablet twice a day. -- 08:02/07/25 GENEVA Aldana R.N. lisinopril 10 mg-hydrochlorothiazide 12.5 mg tablet: 1 tablet once a day. -- 08:02/07/25 GENEVA Aldana R.N. 1 of 4 Nurse Narrative Allergies: no known drug allergies -- 07:02/07/25 GENEVA Aldana R.N. Problems: Hypertension -- 07:02/07/25 GENEVA Aldana R.N. ADDITIONAL SURGERIES: Cholecystectomy -- 07:02/07/25 GENEVA Aldana R.N. varicose veins -- 07:02/07/25 GENEVA Aldana R.N. History 07:02/07/25. SOCIAL HX: Never smoker. No alcohol use or drug use. The patient has not traveled outside the [place] Infectious disease exposure: No infectious disease exposure. ABUSE ASSESSMENT: The patient answered yes to the question(s) Do you feel safe in your home? and no to the question(s) Are you afraid to go home?. SELF HARM ASSESSMENT: Self harm assessment was performed. The patient answered no to the question(s) Have you recently felt down, depressed, or hopeless? and Do you have thoughts of harming or killing yourself?. -- 07:33 02/07/25 EDT Brock Aldana R.N. 07:35 02/07/25. FALL RISK ASSESSMENT: Fall risk assessment completed. Risk factors identified include patient age greater than 65 years. -- 07:35 02/07/25 DIPESHT Brock Aldana R.N. Interventions 07:28 02/07/25. Identification band on patient. Advanced care plan discussed with patient (full code). -- 07:33 02/07/25 DIPESHT Brock Aldana R.N. PHYSICAL ASSESSMENT 2 of 4 Nurse Narrative 08:16 02/07/25. Ambulatory to room. GENERAL / NEURO / PSYCH: Alert. Oriented X 4. Appears in no acute distress. HEENT: Pupils equal, round and reactive to light. Ears within normal limits. Nares within normal limits. Mouth within normal limits upon inspection. Pharynx within normal limits. Voice within normal limits. Mucous membranes are pink. RESPIRATORY: Respirations not labored. The patient can speak in full sentences. Wheezes bilaterally. CVS: Normal sinus rhythm noted. Capillary refill less than 2 seconds. SKIN: Skin is warm and dry. Normal skin turgor. -- 08:16 02/07/25 DIPESHT Brock Aldana R.N. NURSING PROGRESS NOTES 07:50 02/07/25. Site #1 started via IV in the right antecubital space with a 20g angiocath with good blood return; 1 attempt. Blood drawn: rainbow set tube(s). Labeled in the presence of the patient and sent to the lab. Saline lock flushed with 5 mL saline. -- 07:59 02/07/25 EDT Rob Rodrigez R.N. 08:45 02/07/25. Patient identifiers checked. Call light placed in reach. Side rails up x 2. Bed placed in lowest position. Brakes of bed on. ( Pt reports significant improvement in symptoms since arriving to the ED.). -- 09:02 02/07/25 GENEVA Rodrigez R.N. 08:51 02/07/25. Albuterol-Ipratropium (DuoNeb) 3mg/0.5mg Neb Tx 3 mL given. Given by the respiratory therapist. Allergies verified and confirmed 5 rights. Information reviewed with patient. -- 08:51 02/07/25 EDT Aj Griffith R.R.T. 09:08 02/07/25. Patient transported to [place]. -- 09:09 02/07/25 EDT Rob Rodrigez R.N. 09:35 02/07/25. MethylPREDNISolone Sodium Succ (Solu-Medrol) IVP 125 mg given via Site# 1. Allergies verified and confirmed 5 rights. IV patency established. IV site checked: no pain, redness, or swelling. IV flushed thoroughly pre-medication administration. IVP given by nurse. Information reviewed with patient including reason for taking this medication, signs of allergic reaction and precautions. Verbalizes understanding. -- 09:38 02/07/25 EDT Rob Rodrigez R.N. 09:38 02/07/25. CefTRIAXone (Rocephin) IVPB 2gm/50ml NS 2 g started at 100 mL/hr diluted in sodium chloride IVPB 0.9 % Minibag+ 50 mL via Site# 1. Allergies verified and confirmed 5 rights. IV patency established. IV site checked: no pain, redness, or swelling. IV flushed thoroughly pre-medication administration. Information reviewed with p (more content not included)... Normal [facility] ED ORDER SHEET (CPOE ONLY)on 02-07-2025 ED ORDER SHEET (CPOE ONLY) Order Sheet Order Sheet [address] [place] [address] [id number] 02/07/2025 Patient: ASHLEY TUTTLE Sex: Female : 1955 Age: 69y MEASUREMENTS: Wt: 95.3 kg, Ht/Tommy: 63.0 in, BMI: 37.20 ALLERGIES: No known drug allergies MEDICATION/IV/DRIP/FLU ID ORDERS Order Description Priority Entered Acknowledged Completed Albuterol-Ipratropium (DuoNeb) 07:41 02/07/2025 08:41 08:51 3mg/0.5mg Neb Tx3 mL (NOW Zev Huggins, 02/07/2025 02/07/2025 x1) Aj Kim R.R.TIrma R.R.TIrma CefTRIAXone (Rocephin) IVPB 09:19 02/07/2025 09:21 09:39 2gm/50ml NS2 g diluted in Chong Andres D.O. 02/07/2025 02/07/2025 sodium chloride IVPB 0.9 % Rob Uribe, Minibag+ 50 mL at 100 mL/hr R.N. R.N. (NOW x1) MethylPREDNISolone Sodium 09:19 02/07/2025 09:21 09:38 Succ (Solu-Medrol) [id number] mg Chong Andres D.O. 02/07/2025 02/07/2025 (NOW x1) Rob Uribe R.N. R.N. LAB ORDERS Order Description Priority Entered Acknowledged Collected Completed CBC w Diff Stat Stat 07:41 02/07/2025 07:59 02/07/2025 08:47 02/07/2025 Rob Hubbard Lucas Eastep, 1 of 3 Order Sheet Ti.Giselle Guerrier.N. R.N. CMP Stat Stat 07:41 02/07/2025 07:59 02/07/2025 08:47 02/07/2025 Rob Hubbard Lucas Eastep, D.O. R.N. R.N. BNP Stat Stat 07:41 02/07/2025 07:59 02/07/2025 08:47 02/07/2025 Rob Hubbard Lucas Eastep, D.O. R.N. R.N. Troponin-I Stat Stat 07:41 02/07/2025 07:59 02/07/2025 08:47 02/07/2025 Rob Hubbard Lucas Eastep, D.O. R.N. R.N. EKG - ED Stat Stat 07:41 02/07/2025 07:59 02/07/2025 09:01 02/07/2025 Rob Hubbard Lucas Eastep, D.O. R.N. R.NIrma Flu Swab (Influenzae Stat 07:41 02/07/2025 07:59 02/07/2025 08:48 02/07/2025 AAg) Stat Rob Hubbard Lucas Eastep, D.O. R.N. RSerg Rapid COVID (SARS) Stat 07:41 02/07/2025 07:59 02/07/2025 08:48 02/07/2025 ANTIGEN TEST Stat Rob Hubbard Lucas Eastep, D.O. R.NIrma RIrmaNIrma D-Dimer Stat Stat 08:39 02/07/2025 08:47 02/07/2025 08:47 02/07/2025 Lola Shelley Lucas Eastep, R.NIrma RSerg DIAGNOSTIC STUDY ORDERS 2 of 3 Order Sheet Order Description Priority Entered Acknowledged Completed CT Chest PE Study Stat Stat 08:59 02/07/2025 09:01 09:01 Chong Andres D.O. 02/07/2025 02/07/2025 Rob Uribe R.N. R.NIrma Order Comments: 08:59 02/07/2025: Status: Not . Chong Andres D.O. Reason for Study: Pulmonary Disease STAFF ORDERS Order Description Priority Entered Acknowledged Collected Completed IV Saline Lock 07:41 02/07/2025 07:59 02/07/2025 08:47 02/07/2025 Rob Hubbard Lucas Eastep, D.O. R.N. RIrmaNIrma [Electronically signed by Zev Huggins D.O. (02/07/2025 14:07 EDT)] 3 of 3 Normal [facility] ED PHYSICIAN CLINICAL REPORT on 02-07-2025 ED PHYSICIAN CLINICAL REPORT Narrative Physician Clinical [address] [address] [id number] 02/07/2025 07:11:00 Patient: ASHLEY TUTTLE Sex: Female : 1955 Age: 69y Disposition: Discharge to Home Disposition Decision Time: 10:09 02/07/2025 Departure Time: 10:26 02/07/2025 Measurements Wt: 95.3 kg, Ht/Tommy: 63.0 in, BMI: 37.20 Initial Vital Sign Measured Time BP MAP HR RR O2Sat ETCO2 Temp Pain GCS RTS 07:33 02/07/2025 212/94 133 62 18 92% 99.7 F 0 Time Seen: 07:29 02/07/2025. Arrived- By private vehicle. Historian- patient. HISTORY OF PRESENT ILLNESS Chief Complaint: DYSPNEA. (Tuesday started w cough. Kept getting worse and then today she had an episode where she was coughing so much she felt very short breath says occasionally productive. she denies any fever chills or sweats. She would have a headache she has had no body aches and she presents to the emergency department she has used an inhaler in the past he has also had a pulmonary embolism in the past. She has a history of hypertension she is not on blood thinners at this time does smoke.). The patient has had sputum production and a cough. No fever or chills. REVIEW OF SYSTEMS SKIN: No skin rash. : No difficulty with urination. NEUROLOGICAL: No headache. GI: No nausea or vomiting. THROAT: No sore throat. EYES: No eye irritation. CONSTITUTIONAL: The patient has not had weight loss. 1 of 15 Narrative PAST HISTORY See nurses notes. Hypertension Surgeries: Cholecystectomy varicose veins Medications: lisinopril 10 mg-hydrochlorothiazide 12.5 mg tablet: 1 tablet once a day. metoprolol tartrate 50 mg tablet: 1 tablet twice a day. Allergies: no known drug allergies SOCIAL HISTORY Never smoker. No alcohol use. ADDITIONAL NOTES The nursing notes have been reviewed. PHYSICAL EXAM Appearance: Alert. No acute distress. Eyes: Pupils equal, round and reactive to light. Eyes normal inspection. ENT: Ears normal. Nose normal. Neck: Normal inspection. No jugular venous distention. CVS: Normal heart rate. Heart sounds normal. Respiratory: No respiratory distress. Painless inspiration. Wheezing present. Abdomen: Soft and nontender. Skin: Normal skin color. Normal skin turgor. Extremities: Extremities exhibit normal ROM. No lower extremity edema. Neuro: Oriented X 3. No motor deficit. 2 of 15 Narrative LABS, X-RAYS, AND EKG Laboratory Tests: CBC + DIFF Final TEENA: 02/07/2025 07:50:00 EDT MsgRcvd: 02/07/2025 08:10 EDT Lab Test Result Reference Status Received Comments 02/07/2025 08:10 CBC-COMPLETE CBC + DIFF Final EDT BLOOD COUNT 02/07/2025 08:10 WBC 6.9 x 10/UL 4.5 - 10.8 Final EDT 02/07/2025 08:10 RBC 4.67 x 10/UL 4.10 - 5.30 Final EDT 02/07/2025 08:10 HEMOGLOBIN 13.7 g/dl 12.0 - 16.0 Final EDT 02/07/2025 08:10 HEMATOCRIT 40.5 % 34.0 - 46.0 Final EDT 02/07/2025 08:10 MCV 87 fl 80 - 99 Final EDT 02/07/2025 08:10 MCH 29 pg 27 - 33 Final EDT 02/07/2025 08:10 MCHC 34 X10 3 32 - 36 Final EDT 02/07/2025 08:10 RDW/CV 13.4 % 12.0 - 15.6 Final EDT 02/07/2025 08:10 PLATELET 177 x10/UL 150 - 450 Final EDT 3 of 15 Narrative Lab Test Result Reference Status Received Comments 02/07/2025 08:10 AUTOMATED MPV 7.2 fl 6.6 - 10.5 Final EDT DIFFERENTIAL 85.0 % 02/07/2025 08:10 NEUT % 46.0 - 76.0 Final Above high normal EDT 7.7 % 02/07/2025 08:10 LYMPH % 20.0 - 45.0 Final Below low normal EDT 02/07/2025 08:10 MONOS % 5.6 % 0.0 - 10.0 Final EDT 02/07/2025 08:10 EO % 1.4 % 0.0 - 7.0 Final EDT 02/07/2025 08:10 BASO % 0.3 % 0.0 - 2.0 Final EDT 0.53 x10/UL 02/07/2025 08:10 Lymph # 0.80 - 2.80 Final Below low normal EDT 02/07/2025 08:10 Neut # 5.86 x10/UL 1.50 - 7.10 Final EDT 02/07/2025 08:10 [place] # 0.39 x10/UL 0.20 - 1.00 Final EDT 02/07/2025 08:10 EO # 0.10 x10/UL 0.00 - 0.50 Final EDT 02/07/2025 08:10 Baso # 0.02 x10/UL 0.00 - 0.10 Final EDT 02/07/2025 08:10 MANUAL DIFF N/A New Order EDT 02/07/2025 08:10 MORPHOLOGY N/A New Order EDT 4 of 15 Narrative CMP with eGFR Final TEENA: 02/07/2025 07:50:00 EDT MsgRcvd: 02/07/2025 08:34 EDT Lab Test Result Reference Status Received Comments COMPREHENSIVE 02/07/2025 CMP with eGFR Final METABOLIC 08:34 EDT PANEL 02/07/2025 SODIUM 137 mmol/l 136 - 145 Final 08:34 EDT 02/07/2025 POTASSIUM 3.9 mmol/L 3.5 - 5.1 Final 08:34 EDT 02/07/2025 CHLORIDE 104 mmol/L 98 - 107 Final 08:34 EDT 02/07/2025 CO2 25.2 mmol/L 21.0 - 32.0 Final 08:34 EDT 111 mg/dl 02/07/2025 GLUCOSE Above high 74 - 106 Final 08:34 EDT normal 25 mg/dl 02/07/2025 BUN Above high 7 - 18 Final 08:34 EDT normal 02/07/2025 CREATININE 0.81 mg/dl 0. (more content not included)... Normal [facility] ED SUPER BILLon 02-07-2025 ED SUPER BILL [address] [place] [address] [id number] 02/07/2025 Patient: ASHLEY TUTTLE Sex: Female : 1955 Age: 69y Facility Professional Category Item Description Code Code Quantity Fee Total Nurse/E/M EMERGENCY 940088 1 $0.00 $0.00 DEPT VISIT HIGH SEVERITYFUNCJ (69823-83) Nurse/IV/IM/Infusions Drip/IVPB initial 100440 1 $0.00 $0.00 (60907) Nurse/IV/IM/Infusions IVP additional 505264 1 $0.00 $0.00 push (17449) Nurse/Procedures Respiratory 548231 1 $0.00 $0.00 therapy - inhalation (68458) Grand $0.00 Total Providers Zev Huggins D.O. Chief Complaint DYSPNEA. 1 of 2 Superbill Principal Diagnosis Acute dyspnea. Bronchopneumonia. thyroid nodule needs an ultrasound and probable biopsy. ICD-10 Codes J18.0: Bronchopneumonia, unspecified organism R06.09: Other forms of dyspnea 2 of 2 Normal [facility] ED VISIT SUMMARYon ED VISIT SUMMARY Visit Overview Visit Overview [address] [place] [address] [id number] 02/07/2025 Patient: ASHLEY TUTTLE Sex: Female : 1955 Age: 69y 02/07/2025 02:42 PM EDT ED Arrival:07:11 02/07/2025 EDT Status:not Recent Travel:no Language:eng Adv Directive: Isolation Status: Ethnicity:N Fall Risk:risk Infectious Disease Exposure:no Measurements:5'3 / 160.0 Self-Harm Status:risk Sepsis Screen:negative cm 210.0 lb / 95.3 kg Chief Complaint:COUGH, (4 days), and (Omran) ALLERGIES No Known Drug Allergies HOME MEDICATIONS lisinopril 10 mg-hydrochlorothiazide 12.5 mg tablet: 1 tablet once a day. metoprolol tartrate 50 mg tablet: 1 tablet twice a day. PAST MEDICAL HISTORY / PROBLEMS Hypertension See nurses notes 1 of 3 Visit Overview PAST SURGICAL HISTORY Cholecystectomy varicose veins SOCIAL HISTORY Smoking status: No Alcohol use: No Drug use: No ED COURSE MEDICATIONS GIVEN IN EMERGENCY DEPARTMENT 08:51 02/07/25 Albuterol-Ipratropium (DuoNeb) 3mg/0.5mg Neb Tx 3 mL 09:35 02/07/25 MethylPREDNISolone Sodium Succ (Solu-Medrol) IVP 125 mg CefTRIAXone (Rocephin) IVPB 2gm/50ml NS 2 g diluted in sodium chloride IVPB 0.9 09:38 04/03/25 % Minibag+ 50 mL 100 mL/hr IV SITE INFORMATION INTAKE OUTPUT REASSESMENT (most recent) 08:16 02/07/25. Ambulatory to room. GENERAL / NEURO / PSYCH: Alert. Oriented X 4. Appears in no acute distress. HEENT: Pupils equal, round and reactive to light. Ears within normal limits. Nares within normal limits. Mouth within normal limits upon inspection. Pharynx within normal limits. Voice within normal limits. Mucous membranes are pink. RESPIRATORY: Respirations not labored. The patient can speak in full sentences. Wheezes bilaterally. CVS: Normal sinus rhythm noted. Capillary refill less than 2 seconds. SKIN: Skin is warm and dry. Normal skin turgor. VITAL SIGNS First Vitals Last Vitals Temp 07:33 02/07/25 99.7 F Temp 10:02/07/25 BP 07:02/07/25 212/94 BP 10:02/07/25 HR 07:02/07/25 62 HR 10:02/07/25 72 RR 07:02/07/25 18 RR 10:02/07/25 2 of 3 Visit Overview First Vitals Last Vitals O2 Sat 07:33 02/07/25 92% O2 Sat 10:02/07/25 92% Pain 07:02/07/25 0 Pain 10:02/07/25 ETCO2 07:02/07/25 ETCO2 10:02/07/25 GCS 07:02/07/25 GCS 10:02/07/25 RTS 07:02/07/25 RTS 10:02/07/25 PROCEDURES NURSING INTERVENTIONS Respiratory therapy LABS / STUDIES LABS / STUDIES ORDERED BNP CBC w Diff CMP CT Chest PE Study D-Dimer EKG - ED Flu Swab (Influenzae AAg) Rapid COVID (SARS) ANTIGEN TEST Troponin-I CLINICAL IMPRESSION ACUTE DYSPNEA BRONCHOPNEUMONIA 3 of 3 Normal [facility] ED VITALS FLOW SHEETon 02-07 ED VITALS FLOW SHEET Vitals Vital Sign Flow Sheet [address] [place] [address] [phone] 02/07/2025 Patient: ASHLEY TUTTLE Sex: Female : 1955 Age: 69y Measurements Wt: 95.3 kg, Ht/Tommy: 63.0 in, BMI: 37.20 Measured Time BP MAP HR RR O2Sat ETCO2 Temp Pain GCS RTS 10:21 02/07/2025 72 92% 10:20 02/07/2025 18 0 10:16 02/07/2025 195/86 111 71 10:16 02/07/2025 70 92% 10:11 02/07/2025 69 92% 10:06 02/07/2025 70 91% 10:01 02/07/2025 187/87 120 72 10:01 02/07/2025 71 92% 09:56 02/07/2025 72 94% 09:51 02/07/2025 73 93% 09:46 02/07/2025 196/88 124 73 09:46 02/07/2025 72 92% 09:41 02/07/2025 72 93% 09:36 02/07/2025 74 93% 09:31 02/07/2025 182/86 118 77 1 of 3 Vitals Measured Time BP MAP HR RR O2Sat ETCO2 Temp Pain GCS RTS 09:31 02/07/2025 76 93% 09:26 02/07/2025 80 91% 09:21 02/07/2025 78 93% 09:06 02/07/2025 65 93% 09:02 02/07/2025 170/83 112 68 09:01 02/07/2025 66 92% 08:56 02/07/2025 66 92% 08:51 02/07/2025 68 94% 08:47 02/07/2025 206/88 127 66 08:46 02/07/2025 65 92% 08:41 02/07/2025 66 92% 08:36 02/07/2025 64 92% 08:32 02/07/2025 192/100 130 67 08:31 02/07/2025 64 92% 08:26 02/07/2025 64 92% 08:21 02/07/2025 65 93% 08:16 02/07/2025 195/95 128 65 08:16 02/07/2025 64 93% 08:15 02/07/2025 185/94 124 66 08:11 02/07/2025 64 92% 08:06 02/07/2025 66 93% 08:01 02/07/2025 63 92% 07:56 02/07/2025 63 93% 07:54 02/07/2025 79 18 93% RA 07:51 02/07/2025 62 94% 2 of 3 Vitals Measured Time BP MAP HR RR O2Sat ETCO2 Temp Pain GCS RTS 07:49 02/07/2025 63 18 93% RA 07:41 02/07/2025 60 90% 07:33 02/07/2025 212/94 133 62 18 92% 99.7 F 0 3 of 3 Normal [facility] INFLUENZA VIRUS RAPID A/Bon 02-07-2025 INFLUENZA VIRUS RAPID A/B INFLUENZA A NEGATIVE INFLUENZA B NEGATIVE INTERNAL NEG QC PASS INTERNAL POS QC PASS EXTERNAL QC DONE? YES SEND TO IC? NO A NEGATIVE TEST RESULT DOES NOT EXCLUDE INFECTION WITH INFLUENZA A OR B. THEREFORE, THE RESULTS OBTAINED FROM THIS FLU TEST SHOULD BE USED IN CONJUCTION WITH CLINICAL FINDINGS TO MAKE AN ACCURATE DIAGNOSIS. A POSITIVE RESULT DOES NOT RULE OUT CO-INFECTIONS WITH OTHER PATHOGENS OR IDENTIFY ANY SPECIFIC INFLUENZA A VIRUS SUBTYPE.CO-INFECTION WITH INFLUENZA A AND B IS RARE. IT IS RECOMMENDED THAT DUAL POSITIVE RESULTS BE CONFIRMED BY VIRAL CULTURE OR AN FDA-CLEARED INFLUENZA A AND B MOLECULAR ASSAY. INDIVIDUALS WHO HAVE RECEIVED NASALLY ADMINISTERED INFLUENZA A VACCINE MAY TEST POSITIVE IN COMMERCIALLY AVAILABLE INFLUENZA RAPID DIAGNOSTIC TESTS FOR UP TO THREE DAYS. RESULT CRITICAL? NO Normal [facility] Comment on above: Performed By: #### 2 77701 #### [facility],[address] [place] [address] NT-proBNPon 02-07-2025 Natriuretic peptide B (Bld) [Mass/Vol] 304 pg/mL High 0 - 125 [facility] Comment on above: Performed By: #### 2 55021 #### [facility],[address] [place], [place] [address] TROPONINon 02-07-2025 HS TROPONIN 4.0 pg/mL Normal 0.0 - 51.4 [facility] Comment on above: Performed By: #### 2 18048 #### [facility],[address] [place] [address] CBC (NO DIFF)on 10-08-2024 CBC panel Auto (Bld) Normal [facility] Comment on above: Result Comment: CBC( WITHOUT DIFFERENTIAL) Performed By: #### 2 95195 #### [facility],[address] [place] [address] Erythrocyte distribution width (RBC) [Ratio] 13.6 % Normal 12.0 - 15.6 [facility] Comment on above: Performed By: #### 2 91258 #### [facility],[address] [place] [address] 95708 Hematocrit (Bld) [Volume fraction] 41.3 % Normal 34.0 - 46.0 [facility] Comment on above: Performed By: #### 2 46324 #### [facility],[address] [place] [address] 73687 Hemoglobin (Bld) [Mass/Vol] 13.8 g/dL Normal 12.0 - 16.0 [facility] Comment on above: Performed By: #### 2 46337 #### [facility],[address] [place] [address] 03363 MCH (RBC) [Entitic mass] 29 pg Normal 27 - 33 [facility] Comment on above: Performed By: #### 2 50060 #### [facility],[address] [place] [address] 99552 MCHC 34 X10 3 Normal 32 - 36 [facility] Comment on above: Performed By: #### 2 72321 #### [facility],[address] [place] [address] 00775 MCV (RBC) [Entitic vol] 87 fL Normal 80 - 99 [facility] Comment on above: Performed By: #### 2 35467 #### [facility],[address] [place] [address] 18894 PLATELET 279 x10EE3/UL Normal 150 - 450 [facility] Comment on above: Performed By: #### 2 96298 #### [facility],[address] [place] [address] 02528 Platelet mean volume (Bld) [Entitic vol] 7.4 fL Normal 6.6 - 10.5 [facility] Comment on above: Performed By: #### 2 12187 #### [facility],[address] [place] [address] 85675 RBC 4.77 x 10EE6/UL Normal 4.10 - 5.30 [facility] Comment on above: Performed By: #### 2 49767 #### [facility],[address] [place] [address] 56045 WBC 6.9 x 10EE3/UL Normal 4.5 - 10.8 [facility] Comment on above: Performed By: #### 2 68128 #### [facility],[address] [place] [address] 50718 CMP with eGFRon 10-08-2024 AGE 69 years Normal [facility] Comment on above: Performed By: #### 2 24214 #### [facility],[address] [place] [address] 67012 Albumin [Mass/Vol] 3.4 g/dL Normal 3.4 - 5.0 [facility] Comment on above: Performed By: #### 2 01716 #### [facility],[address] [place] [address] 28771 Albumin/Globulin [Mass ratio] 1.0 {ratio} Normal 0.9 - 1.6 [facility] Comment on above: Performed By: #### 2 01640 #### [facility],[address] [place] [address] 69269 ALK PHOS 94 U/L Normal 46 - 116 [facility] Comment on above: Performed By: #### 2 88329 #### [facility],[address] [place] [address] 31035 ALT [Catalytic activity/Vol] 21 U/L Normal 16 - 63 [facility] Comment on above: Performed By: #### 2 83333 #### [facility],[address] [place] [address] 40521 Anion gap [Moles/Vol] 14 mmol/L Normal 10 - 20 [facility] Comment on above: Performed By: #### 2 16347 #### [facility],[address] [place] [address] 17236 AST [Catalytic activity/Vol] 14 U/L Normal 13 - 39 [facility] Comment on above: Performed By: #### 2 62788 #### [facility],[address] [place] [address] 46179 B/C RATIO 21 ratio Normal 0 - 30 [facility] Comment on above: Performed By: #### 2 76849 #### [facility],[address] [place] [address] 83682 Bilirubin [Mass/Vol] 0.6 mg/dL Normal 0.2 - 1.0 [facility] Comment on above: Performed By: #### 2 86580 #### [facility],[address] [place] [address] 04199 Calcium [Mass/Vol] 9.2 mg/dL Normal 8.5 - 10.1 [facility] Comment on above: Performed By: #### 2 73590 #### [facility],[address] [place] [address] 48321 Chloride [Moles/Vol] 106 mmol/L Normal 98 - 107 [facility] Comment on above: Performed By: #### 2 60040 #### [facility],[address] [place] [address] 84955 CMP with eGFR Normal [facility] Comment on above: Result Comment: COMP REHENSIVE METABOLIC PANEL Performed By: #### 2 36702 #### [facility],[address] [place] [address] 32733 CO2 [Moles/Vol] 26.8 mmol/L Normal 21.0 - 32.0 [facility] Comment on above: Performed By: #### 2 50545 #### [facility],[address] [place] [address] 13703 Creatinine [Mass/Vol] 0.82 mg/dL Normal 0.55 - 1.02 [facility] Comment on above: Performed By: #### 2 44641 #### [facility],[address] [place] [address] 20071 GFR/1.73 sq M.predicted among non-blacks MDRD (S/P/Bld) [Vol rate/Area] mL/min/{1.73_m2} Normal 60 - 999 [facility] Comment on above: Performed By: #### 2 42704 #### [facility],[address] [place] [address] 32088 Result Comment: ACCO RDING TO THE NATIONAL KIDNEY DISEASE EDUCATION PROGRAM(NKDE), A NORMAL eGFR IS A VALUE GREATER THAN OR EQUAL TO 60 ML/MIN/1.73 SQ METERS. CHRONIC KIDNEY DISEASE: <60mL/MIN/1.73 SQ METERS KIDNEY FAILURE: <15mL/MIN/1.73 SQ METERS THIS TEST SHOULD ONLY BE USED FOR PATIENTS 18 YEARS OF AGE AND OLDER. Globulin (S) [Mass/Vol] 3.3 g/dL Normal 1.5 - 3.8 [facility] Comment on above: Performed By: #### 2 19763 #### [facility],[address] [place] [address] 56571 Glucose [Mass/Vol] 110 mg/dL High 74 - 106 [facility] Comment on above: Performed By: #### 2 73078 #### [facility],[address] [place] [address] 31770 Potassium [Moles/Vol] 3.5 mmol/L Normal 3.5 - 5.1 [facility] Comment on above: Performed By: #### 2 46329 #### [facility],[address] [place] [address] 91271 Protein [Mass/Vol] 6.7 g/dL Normal 6.4 - 8.2 [facility] Comment on above: Performed By: #### 2 91405 #### [facility],[address] [place] [address] Sodium [Moles/Vol] 143 mmol/L Normal 136 - 145 [facility] Comment on above: Performed By: #### 2 04770 #### [facility],[address] [place] [address] Urea nitrogen [Mass/Vol] 17 mg/dL Normal 7 - 18 [facility] Comment on above: Performed By: #### 2 60095 #### [facility],[address] [place] [address] HEMOGLOBIN A1C (POM)on 10-08 Glucose [Mass/Vol] 102.5 mg/dL High 0.0 - 0.0 [facility] Comment on above: Result Comment: BLDo HEMOGLOBIN A1C REFERENCE RANGESBLDo Suggested Diagnosis HbA1c(%) HbA1C (mmol/mol Diabetic >/=6.5 >/=48 Prediabetes 5.7 - 6.4 39 - 47 Normal <5.7 <39 Performed By: #### 2 04524 #### [facility],[address] [place] [address] HbA1c (Bld) [Mass fraction] 5.2 % Normal 0.0 - 6.5 [facility] Comment on above: Performed By: #### 2 70861 #### [facility],[address] [place], [place] [address] LIPID PROFILEon 10-08-2024 Cholesterol [Mass/Vol] 244 mg/dL High 0 - 240 [facility] Comment on above: Performed By: #### 2 71504 #### [facility],[address] [place], [place] [address] Cholesterol in HDL [Mass/Vol] 57 mg/dL Normal 40 - 60 [facility] Comment on above: Performed By: #### 2 39177 #### [facility],[address] [place], [place] [address] Cholesterol in LDL [Mass/Vol] 158 mg/dL High 0 - 129 [facility] Comment on above: Performed By: #### 2 92344 #### [facility],[address] [place] [address] 45268 Cholesterol.total/Cho lesterol in HDL [Mass ratio] 4.3 {ratio} Normal 0.0 - 5.0 [facility] Comment on above: Performed By: #### 2 73665 #### [facility],[address] [place] [address] 93397 Lipid 1996 panel Normal [facility] Comment on above: Result Comment: LIPI D PROFILE Performed By: #### 2 64068 #### [facility],[address] [place], [place] [address] Triglyceride [Mass/Vol] 143 mg/dL Normal 0 - 150 [facility] Comment on above: Performed By: #### 2 44641 #### [facility],[address] [place] [address] 38525 TSHon 10-08-2024 TSH Qn 2.41 m[IU]/L Normal 0.35 - 3.74 [facility] Comment on above: Performed By: #### 2 41360 #### [facility],[address] [place] [address] 06152 URINALYSISon 10-08-2024 Bilirubin Ql (U) Negative Normal NORMAL: NEGATIVE [facility] Comment on above: Performed By: #### 2 74180 #### [facility],[address] [place] [address] 35438 Clarity (U) clear Normal NORMAL: CLEAR [facility] Comment on above: Performed By: #### 2 65131 #### [facility],[address] [place] [address] 41018 Color (U) yellow Normal NORMAL: YELLOW [facility] Comment on above: Performed By: #### 2 74582 #### [facility],[address] [place] [address] 21525 Glucose Ql (U) NORM Normal NORMAL: NORMAL [facility] Comment on above: Performed By: #### 2 93575 #### [facility],[address] [place] [address] 57262 Hemoglobin Ql (U) Negative Normal NORMAL: NEGATIVE [facility] Comment on above: Performed By: #### 2 96059 #### [facility],[address] [place] [address] 08192 Ketone Negative Normal NORMAL: NEGATIVE [facility] Comment on above: Performed By: #### 2 32927 #### [facility],[address] [place] [address] 74899 Leukocytes Negative Normal NORMAL: NEGATIVE [facility] Comment on above: Performed By: #### 2 53462 #### [facility],[address] [place] [address] 98064 Nitrite Ql (U) Negative Normal NORMAL: NEGATIVE [facility] Comment on above: Performed By: #### 2 09725 #### [facility],[address] [place] [address] 23811 pH (U) 6 [pH] Normal NORMAL: 5.0-8.0 [facility] Comment on above: Performed By: #### 2 90483 #### [facility],[address] [place] [address] 56856 Protein Ql (U) Negative Normal NORMAL: NEGATIVE [facility] Comment on above: Performed By: #### 2 83206 #### [facility],[address] [place] [address] 80506 Sp Jay Em 1.015 Normal NORMAL: 1.010-1.030 [facility] Comment on above: Performed By: #### 2 85159 #### [facility],[address] [place] [address] 29933 Specimen Type R Normal [facility] Comment on above: Performed By: #### 2 29699 #### [facility],[address] [place] [address] 30552 Urinalysis dipstick W Reflex Microscopic panel (U) NOT INDICATED Normal [facility] Comment on above: Performed By: #### 2 39819 #### [facility],[address] [place] [address] 19630 Urobilinog NORM Normal NORMAL: NORMAL [facility] Comment on above: Performed By: #### 2 55632 #### [facility],[address] [place] [address] 33167 HbA1c (Bld)on 07-12-2023 Average glucose Estimated from glycated hemoglobin (Bld) [Mass/Vol] 105 mg/dL Normal [facility] Comment on above: Order Comment: Speci men Type: BLOOD SPECIMEN Ordering Facility: [facility] Address: [address] [place] [address] Result Comment: eAG: (Estimated average glucose) is a calculated value from HgbA1c and is enrollment representative of the average blood glucose level in the last 2-3 month period. Performed By: #### 5 5454-3 #### [facility] CLIA [id number] [address] [place] [address] [place] HbA1c (Bld) [Mass fraction] 5.3 % Normal 4.3-5.6 [facility] Comment on above: Order Comment: Speci men Type: BLOOD SPECIMEN Ordering Facility: [facility] Address: [address] [place] [address] Result Comment: Amer [place] Diabetes Association guidelines indicate that patients with HgbA1c in the range 5.7-6.4% are at increased risk for development of diabetes, and intervention by lifestyle modification may be beneficial. HgbA1c greater or equal to 6.5% is considered diagnostic of diabetes. Performed By: #### 5 5454-3 #### [facility] CLIA [id number] [address] [place] [address] [place] BETAAon 04-28-2023 Beta-2 Glycoprotein Abs, IgA <10 Normal <=20 [facility] Comment on above: Result Comment: Perf ormed By: [employer] [address] [place] [address] Hydrographical Technical Officer: Dontrell Arce MD, PhD Performed By: #### A PTT #### [place] [address] APCVon 04-27-2023 APC Factor V Resistance 2.9 ratio Normal [facility] Comment on above: Result Comment: This APCV result demonstrates no Resistance to Activated Protein C. APC Factor V Resistance Reference Range: <= 2.3 Positive > 2.3 Negative Performed By: #### A PTT #### [place] [address] CIRANon 04-27-2023 Dil Deep Viper Venom 46.2 seconds High 30.0-42.0 [facility] Comment on above: Result Comment: DRVV T Confirmation Test Performed: NEGATIVE Performed By: #### A PTT #### [place] [address] [place] Interpretation See Below Normal [facility] Comment on above: Result Comment: No e vidence of lupus anticoagulant. Although results may represent valid findings for Lupus Anticoagulant, DRVVT results may be affected by presence of direct thrombin inhibitors, such as argatroban, dabigatran (Pradaxa) and Bivalirudin (Angiomax),and direct Xa inhibitors, such as rivaroxaban (Xarelto) and apixaban (Eliquis). Interpret Lupus Anticoagulant results with clinical correlation. Performed By: #### A PTT #### [place] [address] Platelet neutraliz. Negative Normal [facility] ([place]) Comment on above: Performed By: #### A PTT #### [place] [address] PTGENon 04-27-2023 PT Gene Mut Prothrombin Gene Mutation Normal [facility] Comment on above: Result Comment: Byron alexander Accession Number: [id number] Result: NORMAL Interpretation: The DNA sample is negative for the c.*97G>A variant (legacy name 99857V>A) in the 3' untranslated region of the Factor II (F2) gene. This result is not associated with an increased risk of thromboembolic disease. Thromboembolic disease is a multifactorial disorder and other causes are not excluded by this result. Methodology: Isolated Genomic DNA from the patient's blood specimen is evaluated for the c*97G>A ([id number]) variant of the F2 gene [RefSeq [id number];GRCh38/hg38] by multiplex polymerase chain reaction (PCR) followed by melting curve analysis. Limitations: This assay is designed to detect the c.*97G>A (60513C>A) variant in the F2 gene. Uncommon variants or single nucleotide polymorphisms may affect binding of probes and may rarely result in false negative, false positive or indeterminate results. This assay does not detect other disease-associated rare variants in F2 or other causes of thromboembolic disease. Disclaimer: This test was developed and its performance characteristics determined by [facility] [place] ([facility]). It has not been cleared or approved by the FDA. [facility] is regulated under CLIA as certified to perform high- complexity testing. This test is used for clinical purposes. It should not be regarded as investigational or for research. Testing [place] [address]. CLIA Number: [id number] References: 1) Inheritied Thrombophilias in . ACOG Practice Bulletin. No. 197. [place] [employer]. Obsete Gynecol 2018;132:e18-34. 2) Jjt SR, Desiree FR, Maia PH, and Yun MARISCAL. A common genetic variation in the 3'-untranslated region of the prothrombin gene is associated with elevated plasma prothrombin levels and an increase in venous thrombosis. Blood 88:3698-703, 1995. 3) Ebony I, Segundo V, Amie C, Chiara K. Prothrombin 10989Q>T: 16 new cases, association with the 19842E>G polymorphism, and literature review. J Thromb Haemost. 2009;9:1585-7. As reviewed by Opal Tucker, PhD, HCLD Performed By: [employer] [address] [place] [address]. [place] [address] Needle Loom Tender: Felix RAY#: [id number] Performed By: #### A PTT #### [address] [address] .Auto Diffon 04-26-2023 Basophil, Absolute 0.1 10 3/mcL Normal 0.0-0.3 [facility] ([place]) Comment on above: Performed By: #### A PTT, CBC, ANEU, ADIFF #### [address] [address] Basophils/100 WBC (Bld) 1.2 % Normal 0.0-2.5 [facility] Comment on above: Performed By: #### A PTT, CBC, ANEU, ADIFF #### [address] [address] Eosinophil, Absolute 0.1 10 3/mcL Normal 0.0-0.7 [facility] ([place]) Comment on above: Performed By: #### A PTT, CBC, ANEU, ADIFF #### [address] [address] Eosinophils/100 WBC (Bld) 1.4 % Normal 0.0-6.0 [facility] Comment on above: Performed By: #### A PTT, CBC, ANEU, ADIFF #### [address] [address] Lymphocyte, Absolute 1.4 10 3/mcL Normal 0.9-4.3 [facility] ([place]) Comment on above: Performed By: #### A PTT, CBC, ANEU, ADIFF #### [address] [address] Lymphocytes/100 WBC (Bld) 13.7 % Low 20.0-40.0 [facility] Comment on above: Performed By: #### A PTT, CBC, ANEU, ADIFF #### [address] [address] Monocyte, Absolute 0.7 10 3/mcL Normal 0.1-1.4 [facility] ([place]) Comment on above: Performed By: #### A PTT, CBC, ANEU, ADIFF #### [address] [address] Monocytes/100 WBC (Bld) 7.2 % Normal 2.0-13.0 [facility] Comment on above: Performed By: #### A PTT, CBC, ANEU, ADIFF #### [address] [address] Neutrophils/100 WBC (Bld) 76.5 % High 50.0-75.0 [facility] Comment on above: Performed By: #### A PTT, CBC, ANEU, ADIFF #### [address] [address] .GFRon 04-26-2023 GFR Non- >60 Normal [facility] Comment on above: Result Comment: GFR Population mean for , Non- Americans Ages 20-29 = 116 mL/min/1.73 sq.m. Ages 30-39 = 107 mL/min/1.73 sq.m. Ages 40-49 = 99 mL/min/1.73 sq.m. Ages 50-59 = 93 mL/min/1.73 sq.m. Ages 60-69 = 85 mL/min/1.73 sq.m. Ages 70+ = 75 mL/min/1.73 sq.m. Chronic Kidney Disease: Less than 60 mL/min/1.73 square meters End Stage Renal Disease: Less than 15 mL/min/1.73 square meters Performed By: #### A PTT, CBC, ANEU, ADIFF #### [address] [address] GFR >60 Normal [facility] ([place]) Comment on above: Result Comment: GFR Population mean for , Non- Americans Ages 20-29 = 116 mL/min/1.73 sq.m. Ages 30-39 = 107 mL/min/1.73 sq.m. Ages 40-49 = 99 mL/min/1.73 sq.m. Ages 50-59 = 93 mL/min/1.73 sq.m. Ages 60-69 = 85 mL/min/1.73 sq.m. Ages 70+ = 75 mL/min/1.73 sq.m. Chronic Kidney Disease: Less than 60 mL/min/1.73 square meters End Stage Renal Disease: Less than 15 mL/min/1.73 square meters Performed By: #### A PTT, CBC, ANEU, ADIFF #### [address] [address] .NEUABSon 04-26-2023 Neutrophil, Absolute 7.6 10 3/mcL Normal 2.3-8.1 [facility] ([place]) Comment on above: Performed By: #### A PTT, CBC, ANEU, ADIFF #### [address] [address] APTTon 04-26-2023 aPTT Coag (Bld) [Time] 54.6 s High 25.0-35.0 [facility] ([place] Comment on above: Result Comment: For Heparin anticoagulation therapy, the recommended therapeutic range is: 54-77 seconds (APTT Correlation with Anti-Xa therapeutic range of 0.3-0.7 units/ml). PLEASE REFERENCE THE PHARMACY PROTOCOL FOR DOSING. Performed By: #### A PTT, CBC, ANEU, ADIFF #### [address] [address] Heparin dose (APTT) Heparin IV Normal [facility] ([place]) Comment on above: Performed By: #### A PTT, CBC, ANEU, ADIFF #### [address] [address] AT3on 04-26-2023 Anti-Thrombin III 83 % Low 84-126 [facility] Comment on above: Performed By: #### A PTT, CBC, ANEU, ADIFF #### [address] [address] BMPon 04-26-2023 BUN/Creatinine Ratio 30.3 ratio High 10.0-22.0 [facility] ([place]) Comment on above: Performed By: #### A PTT, CBC, ANEU, ADIFF #### [address] [address] Calcium [Mass/Vol] 8.5 mg/dL Low 8.7-10.4 [facility] ([place]) Comment on above: Performed By: #### A PTT, CBC, ANEU, ADIFF #### [address] [address] Chloride [Moles/Vol] 105 mmol/L Normal 98-110 [facility] ([place]) Comment on above: Performed By: #### A PTT, CBC, ANEU, ADIFF #### [address] [address] CO2 [Moles/Vol] 23 mmol/L Normal 22-32 [facility] Comment on above: Performed By: #### A PTT, CBC, ANEU, ADIFF #### [address] [address] Creatinine [Mass/Vol] 0.66 mg/dL Normal 0.50-1.20 [facility] [facility] ([place]) Comment on above: Performed By: #### A PTT, CBC, ANEU, ADIFF #### [address] [address] Electrolyte Balance 10.0 mEq/L Normal 4.0-15.0 [facility] ([place]) Comment on above: Performed By: #### A PTT, CBC, ANEU, ADIFF #### [address] [address] Glucose [Mass/Vol] 112 mg/dL Normal 82-115 [facility] ([place]) Comment on above: Performed By: #### A PTT, CBC, ANEU, ADIFF #### [address] [address] Potassium [Moles/Vol] 3.0 mmol/L Low 3.5-5.0 [facility] ([place]) Comment on above: Performed By: #### A PTT, CBC, ANEU, ADIFF #### [address] [address] Sodium [Moles/Vol] 138 mmol/L Normal 136-145 [facility] ([place]) Comment on above: Performed By: #### A PTT, CBC, ANEU, ADIFF #### [address] [address] Urea nitrogen [Mass/Vol] 20.0 mg/dL Normal 8.0-22.0 [facility] ([place] Comment on [place]: Performed By: #### A PTT, CBC, ANEU, ADIFF #### [address] 04-26-2023 IgG Cardiolipin Ab <9.0 Normal <15.0 [facility] ([place]) Comment on above: Result Comment: <15 GPL Negative 15-20 GPL Indeterminate >20 GPL Positive The following results were obtained with the [employer] QUANTA Lite RYANNE IgG III TRISH. Cardiolipin IgG values obtained with the different manufacturers' assay methods may not be used interchangeably. The magnitude of the reported IgG levels cannot be correlated to an endpoint titer. This test is used as an aid in diagnosis of anti-phospholipid syndrome. The test may occasionally be positive in patients with a range of underlying conditions, secondary syphilis, HIV infection, active Hepatitis C, endocarditis, among others. Clinical correlation is required. Performed By: [facility] [place] [address] Needle Loom Tender: Felix See III, M.D. CLIA#: [id number] Performed By: #### A PTT #### [address] 04-26-2023 IgM Cardiolipin Ab <9.0 Normal <12.5 [facility] ([place]) Comment on above: Result Comment: <12. 5 MPL Negative 12.5-20 MPL Indeterminate >20 MPL Positive The following results were obtained with the [employer] QUANTA Lite RYANNE IgM III TRISH. Cardiolipin IgM values obtained with the different manufacturers' assay methods may not be used interchangeably. The magnitude of the reported IgM levels cannot be correlated to an endpoint titer. ??? This test is used as an aid in diagnosis of anti-phospholipid syndrome. The test may occasionally be positive in patients with a range of underlying conditions, secondary syphilis, HIV infection, active Hepatitis C, endocarditis, among others. Clinical correlation is required. Performed By: [facility] [place] [address] Needle Loom Tender: Felix See III, M.D. CLIA#: [id number] Performed By: #### A PTT #### [address] [address] CBCon 04-26-2023 Erythrocyte distribution width (RBC) [Ratio] 14.2 % Normal 11.5-15.5 [facility] [place] Comment on [place]: Performed By: #### A PTT, CBC, ANEU, ADIFF #### [place] [phone] Hematocrit (Bld) [Volume fraction] 36.2 % Normal 34.0-46.0 [facility] [place] Comment on above: Performed By: #### A PTT, CBC, ANEU, ADIFF #### [place] [id number] Hgb 12.4 G/dL Normal 12.0-16.0 [facility] [place] Comment on above: Performed By: #### A PTT, CBC, ANEU, ADIFF #### [place] [phone] MCH (RBC) [Entitic mass] 29.2 pg Normal 27.0-33.0 [facility] [place] Comment on above: Performed By: #### A PTT, CBC, ANEU, ADIFF #### [place] [phone] MCHC 34.1 G/dL Normal 32.0-36.0 [facility] [place] Comment on above: Performed By: #### A PTT, CBC, ANEU, ADIFF #### [place] [phone] MCV (RBC) [Entitic vol] 85.6 fL Normal 80.0-99.0 [facility] [place] Comment on above: Performed By: #### A PTT, CBC, ANEU, ADIFF #### [place] [phone] Platelet 144 10 3/mcL Low 150-450 [facility] [place] Comment on above: Performed By: #### A PTT, CBC, ANEU, ADIFF #### [place] [phone] Platelet mean volume (Bld) [Entitic vol] 7.6 fL Normal 6.6-10.5 [facility] [place] Comment on above: Performed By: #### A PTT, CBC, ANEU, ADIFF #### [address] [address] RBC 4.24 10 6/mcL Normal 4.10-5.30 [facility] [place] Comment on above: Performed By: #### A PTT, CBC, ANEU, ADIFF #### [address] [address] WBC 9.9 10 3/mcL Normal 4.5-10.8 [facility] [place] Comment on above: Performed By: #### A PTT, CBC, ANEU, ADIFF #### [address] [address] LABORATORYOrdered By: Amairani Jhaveri on 04-26-2023 aPTT Coag (PPP) [Time] 54.6 s Invalid Interpretation Code 25.0 - 35.0 seconds AH Auto Coag SS Heparin dose (APTT) Heparin IV (04/26/23 4:33 AM) Invalid Interpretation Code AH Auto Coag SS LABORATORYOrdered By: SYSTEM SYSTEM on 04-26-2023 Basophils (Bld) [#/Vol] 0.1 103/mcL Invalid Interpretation Code 0.0 - 0.3 10^3/mcL Workflow SS Basophils/100 WBC (Bld) 1.2 % Invalid Interpretation Code 0.0 - 2.5 % AH Workflow SS Calcium [Mass/Vol] 8.5 mg/dL Invalid Interpretation Code 8.7 - 10.4 mg/dL ADM SS Chloride [Moles/Vol] 105 mmol/L Invalid Interpretation Code 98 - 110 mEq/L ADM SS CO2 [Moles/Vol] 23 mmol/L Invalid Interpretation Code 22 - 32 mEq/L ADM SS Creatinine [Mass/Vol] 0.66 mg/dL Invalid Interpretation Code 0.50 - 1.20 mg/dL ADM SS Electrolyte Balance 10.0 mEq/L Invalid Interpretation Code 4.0 - 15.0 mEq/L ADM SS Eosinophils (Bld) [#/Vol] 0.1 103/mcL Invalid Interpretation Code 0.0 - 0.7 10^3/mcL Workflow SS Eosinophils/100 WBC (Bld) 1.4 % Invalid Interpretation Code 0.0 - 6.0 % AH Workflow SS Erythrocyte distribution width (RBC) [Ratio] 14.2 % Invalid Interpretation Code 11.5 - 15.5 % AH Workflow SS GFR/1.73 sq M.predicted among blacks MDRD (S/P/Bld) [Vol rate/Area] ml/min/1.73sqm Invalid Interpretation Code AH ADM SS GFR/1.73 sq M.predicted among non-blacks MDRD (S/P/Bld) [Vol rate/Area] ml/min/1.73sqm Invalid Interpretation Code AH ADM SS Glucose [Mass/Vol] 112 mg/dL Invalid Interpretation Code 82 - 115 mg/dL ADM SS Hematocrit (Bld) [Volume fraction] 36.2 % Invalid Interpretation Code 34.0 - 46.0 % AH Workflow SS Hemoglobin (Bld) [Mass/Vol] 12.4 G/dL Invalid Interpretation Code 12.0 - 16.0 G/dL AH Workflow SS Lymphocytes (Bld) [#/Vol] 1.4 103/mcL Invalid Interpretation Code 0.9 - 4.3 10^3/mcL AH Workflow SS Lymphocytes/100 WBC (Bld) 13.7 % Invalid Interpretation Code 20.0 - 40.0 % AH Workflow SS MCH (RBC) [Entitic mass] 29.2 pg Invalid Interpretation Code 27.0 - 33.0 pg AH Workflow SS MCHC 34.1 G/dL Invalid Interpretation Code 32.0 - 36.0 G/dL AH Workflow SS MCV (RBC) [Entitic vol] 85.6 fL Invalid Interpretation Code 80.0 - 99.0 fL AH Workflow SS Monocytes (Bld) [#/Vol] 0.7 103/mcL Invalid Interpretation Code 0.1 - 1.4 10^3/mcL AH Workflow SS Monocytes/100 WBC (Bld) 7.2 % Invalid Interpretation Code 2.0 - 13.0 % AH Workflow SS Neutrophils (Bld) [#/Vol] 7.6 103/mcL Invalid Interpretation Code 2.3 - 8.1 10^3/mcL AH Workflow SS Neutrophils/100 WBC (Bld) 76.5 % Invalid Interpretation Code 50.0 - 75.0 % AH Workflow SS Platelet mean volume (Bld) [Entitic vol] 7.6 fL Invalid Interpretation Code 6.6 - 10.5 fL AH Workflow SS Platelets (Bld) [#/Vol] 144 103/mcL Invalid Interpretation Code 150 - 450 10^3/mcL AH Workflow SS Potassium [Moles/Vol] 3.0 mmol/L Invalid Interpretation Code 3.5 - 5.0 mEq/L AH ADM SS RBC (Bld) [#/Vol] 4.24 106/mcL Invalid Interpretation Code 4.10 - 5.30 10^6/mcL AH Workflow SS Sodium [Moles/Vol] 138 mmol/L Invalid Interpretation Code 136 - 145 mEq/L AH ADM SS Urea nitrogen [Mass/Vol] 20.0 mg/dL Invalid Interpretation Code 8.0 - 22.0 mg/dL AH ADM SS Urea nitrogen/Creatinine [Mass ratio] 30.3 ratio Invalid Interpretation Code 10.0 - 22.0 ratio AH ADM SS WBC (Bld) [#/Vol] 9.9 103/mcL Invalid Interpretation Code 4.5 - 10.8 10^3/mcL AH Workflow SS PROTCon 04-26-2023 Protein C 98 % Normal >=80 [facility] [place] Comment on above: Performed By: #### A PTT, CBC, ANEU, ADIFF #### [address] [address] PRSFAon 04-26-2023 Protein S Free Antigen 85 % Normal 55-124 [facility] ([place] Comment on above: Result Comment: Prot ein S Type II deficiency (very rare) is not detected by this assay. (Pathophysiology of Haemostasis and Thrombosis 04: 33:202-205 and Thrombosis Haemostasis 2000; 84:918) Performed By: #### A PTT, CBC, ANEU, ADIFF #### [address] [address] .Auto Diffon 04-25-2023 Basophil, Absolute 0.1 10 3/mcL Normal 0.0-0.3 [facility] ([place]) Comment on above: Performed By: #### A PTT, CBC, ANEU, ADIFF #### [address] [address] Basophils/100 WBC (Bld) 0.5 % Normal 0.0-2.5 [facility] ([place] Comment on above: Performed By: #### A PTT, CBC, ANEU, ADIFF #### [address] [address] Eosinophil, Absolute 0.0 10 3/mcL Normal 0.0-0.7 [facility] ([place]) Comment on above: Performed By: #### A PTT, CBC, ANEU, ADIFF #### [address] [address] Eosinophils/100 WBC (Bld) 0.2 % Normal 0.0-6.0 [facility] ([place] Comment on above: Performed By: #### A PTT, CBC, ANEU, ADIFF #### [address] [address] Lymphocyte, Absolute 1.3 10 3/mcL Normal 0.9-4.3 [facility] ([place]) Comment on above: Performed By: #### A PTT, CBC, ANEU, ADIFF #### [address] [address] Lymphocytes/100 WBC (Bld) 11.1 % Low 20.0-40.0 [facility] ([place]) Comment on above: Performed By: #### A PTT, CBC, ANEU, ADIFF #### [address] [address] Monocyte, Absolute 0.8 10 3/mcL Normal 0.1-1.4 [facility] ([place] Comment on above: Performed By: #### A PTT, CBC, ANEU, ADIFF #### [address] [address] Monocytes/100 WBC (Bld) 6.9 % Normal 2.0-13.0 [facility] ([place]) Comment on above: Performed By: #### A PTT, CBC, ANEU, ADIFF #### [address] [address] Neutrophils/100 WBC (Bld) 81.3 % High 50.0-75.0 [facility] ([place]) Comment on above: Performed By: #### A PTT, CBC, ANEU, ADIFF #### [address] [address] .GFRon 04-25-2023 GFR Non- >60 Normal [facility] ([place]) Comment on above: Result Comment: GFR Population mean for , Non- Americans Ages 20-29 = 116 mL/min/1.73 sq.m. Ages 30-39 = 107 mL/min/1.73 sq.m. Ages 40-49 = 99 mL/min/1.73 sq.m. Ages 50-59 = 93 mL/min/1.73 sq.m. Ages 60-69 = 85 mL/min/1.73 sq.m. Ages 70+ = 75 mL/min/1.73 sq.m. Chronic Kidney Disease: Less than 60 mL/min/1.73 square meters End Stage Renal Disease: Less than 15 mL/min/1.73 square meters Performed By: #### A PTT, CBC, ANEU, ADIFF #### [address] [address] GFR >60 Normal [facility] ([place]) Comment on above: Result Comment: GFR Population mean for , Non- Americans Ages 20-29 = 116 mL/min/1.73 sq.m. Ages 30-39 = 107 mL/min/1.73 sq.m. Ages 40-49 = 99 mL/min/1.73 sq.m. Ages 50-59 = 93 mL/min/1.73 sq.m. Ages 60-69 = 85 mL/min/1.73 sq.m. Ages 70+ = 75 mL/min/1.73 sq.m. Chronic Kidney Disease: Less than 60 mL/min/1.73 square meters End Stage Renal Disease: Less than 15 mL/min/1.73 square meters Performed By: #### A PTT, CBC, ANEU, ADIFF #### [address] [address] .NEUABSon 04-25-2023 Neutrophil, Absolute 9.4 10 3/mcL High 2.3-8.1 [facility] ([place] Comment on above: Performed By: #### A PTT, CBC, ANEU, ADIFF #### [address] [address] A1Con 04-25-2023 HbA1c (Bld) [Mass fraction] 5.4 % Normal 4.0-6.0 [facility] ([place] Comment on above: Performed By: #### A PTT #### [address] [address] ANAon 04-25-2023 Nuclear Ab IF (S) [Titer] 40 {titer} Normal Neg 40 [facility] ([place] Comment on above: Result Comment: OLIVER Screen and Titer methodology is an immunofluorescent technique utilizing Hep2 Substrate. Performed By: #### A PTT, CBC, ANEU, ADIFF #### [place] [id number] APTTon 04-25-2023 aPTT Coag (Bld) [Time] 55.7 s High 25.0-35.0 [facility] ([place] Comment on above: Result Comment: For Heparin anticoagulation therapy, the recommended therapeutic range is: 54-77 seconds (APTT Correlation with Anti-Xa therapeutic range of 0.3-0.7 units/ml). PLEASE REFERENCE THE PHARMACY PROTOCOL FOR DOSING. Performed By: #### A PTT #### [place] [address] Heparin dose (APTT) Unknown Normal [facility] ([place]) Comment on above: Performed By: #### A PTT #### [place] [phone] aPTT Coag (Bld) [Time] 56.9 s High 25.0-35.0 [facility] [place] Comment [place] above: Result Comment: For Heparin anticoagulation therapy, the recommended therapeutic range is: 54-77 seconds (APTT Correlation with Anti-Xa therapeutic range of 0.3-0.7 units/ml). PLEASE REFERENCE THE PHARMACY PROTOCOL FOR DOSING. Performed By: #### A PTT, CBC, ANEU, ADIFF #### [address] [address] Heparin dose (APTT) Heparin IV Normal [facility] ([place] Comment on above: Performed By: #### A PTT, CBC, ANEU, ADIFF #### [place] [phone] aPTT Coag (Bld) [Time] 52.6 s High 25.0-35.0 [facility] [place] Comment on above: Result Comment: For Heparin anticoagulation therapy, the recommended therapeutic range is: 54-77 seconds (APTT Correlation with Anti-Xa therapeutic range of 0.3-0.7 units/ml). PLEASE REFERENCE THE PHARMACY PROTOCOL FOR DOSING. Performed By: #### A PTT #### [address] [address] Heparin dose (APTT) Heparin IV Normal [facility] ([place] Comment on above: Performed By: #### A PTT #### [address] [address] aPTT Coag (Bld) [Time] 59.4 s High 25.0-35.0 [facility] [place] Comment on above: Result Comment: For Heparin anticoagulation therapy, the recommended therapeutic range is: 54-77 seconds (APTT Correlation with Anti-Xa therapeutic range of 0.3-0.7 units/ml). PLEASE REFERENCE THE PHARMACY PROTOCOL FOR DOSING. Performed By: #### A PTT, CBC, ANEU, ADIFF #### [address] [address] Heparin dose (APTT) Heparin IV Normal [facility] ([place] Comment on above: Performed By: #### A PTT, CBC, ANEU, ADIFF #### [address] [address] BMPon 04-25-2023 BUN/Creatinine Ratio 35.2 ratio High 10.0-22.0 [facility] ([place] Comment on above: Performed By: #### A PTT, CBC, ANEU, ADIFF #### [address] [address] Calcium [Mass/Vol] 8.7 mg/dL Normal 8.7-10.4 [facility] ([place]) Comment on above: Performed By: #### A PTT, CBC, ANEU, ADIFF #### [address] [address] Chloride [Moles/Vol] 105 mmol/L Normal 98-110 [facility] ([place] Comment on above: Performed By: #### A PTT, CBC, ANEU, ADIFF #### [address] [address] CO2 [Moles/Vol] 23 mmol/L Normal 22-32 [facility] [place] Comment on above: Performed By: #### A PTT, CBC, ANEU, ADIFF #### [address] [address] Creatinine [Mass/Vol] 0.71 mg/dL Normal 0.50-1.20 [facility] ([place] Comment on above: Performed By: #### A PTT, CBC, ANEU, ADIFF #### [address] [address] Electrolyte Balance 11.0 mEq/L Normal 4.0-15.0 [facility] ([place] Comment on above: Performed By: #### A PTT, CBC, ANEU, ADIFF #### [address] [address] Glucose [Mass/Vol] 127 mg/dL High 82-115 [facility] ([place] Comment on above: Performed By: #### A PTT, CBC, ANEU, ADIFF #### [address] [address] Potassium [Moles/Vol] 3.2 mmol/L Low 3.5-5.0 [facility] ([place] Comment on above: Performed By: #### A PTT, CBC, ANEU, ADIFF #### [address] [address] Sodium [Moles/Vol] 139 mmol/L Normal 136-145 [facility] ([place] Comment on above: Performed By: #### A PTT, CBC, ANEU, ADIFF #### [address] [address] Urea nitrogen [Mass/Vol] 25.0 mg/dL High 8.0-22.0 [facility] [place] Comment [place] above: Performed By: #### A PTT, CBC, ANEU, ADIFF #### [address] [address] CBCon 04-25-2023 Erythrocyte distribution width (RBC) [Ratio] 14.2 % Normal 11.5-15.5 [facility] [place] Comment on above: Performed By: #### A PTT, CBC, ANEU, ADIFF #### [place] [address] Hematocrit (Bld) [Volume fraction] 36.3 % Normal 34.0-46.0 [facility] [place] Comment [place] above: Performed By: #### A PTT, CBC, ANEU, ADIFF #### [place] [address] Hgb 12.3 G/dL Normal 12.0-16.0 [facility] [place] Comment on above: Performed By: #### A PTT, CBC, ANEU, ADIFF #### [place] [phone] MCH (RBC) [Entitic mass] 29.0 pg Normal 27.0-33.0 [facility] [place] Comment on above: Performed By: #### A PTT, CBC, ANEU, ADIFF #### [place] [address] MCHC 33.8 G/dL Normal 32.0-36.0 [facility] [place] Comment on above: Performed By: #### A PTT, CBC, ANEU, ADIFF #### [place] [address] MCV (RBC) [Entitic vol] 85.9 fL Normal 80.0-99.0 [facility] [place] Comment on above: Performed By: #### A PTT, CBC, ANEU, ADIFF #### [place] [phone] Platelet 164 10 3/mcL Normal 150-450 [facility] [place] Comment on above: Performed By: #### A PTT, CBC, ANEU, ADIFF #### [place] [phone] Platelet mean volume (Bld) [Entitic vol] 7.7 fL Normal 6.6-10.5 [facility] [place] Comment on above: Performed By: #### A PTT, CBC, ANEU, ADIFF #### [place] [phone] RBC 4.22 10 6/mcL Normal 4.10-5.30 [facility] [place] Comment on above: Performed By: #### A PTT, CBC, ANEU, ADIFF #### [address] [address] WBC 11.5 10 3/mcL High 4.5-10.8 [facility] ([place] Comment on above: Performed By: #### A PTT, CBC, ANEU, ADIFF #### [place] [phone] [place] [id number] LABORATORYOrdered By: Aysha Ramirez on 04-25-2023 aPTT Coag (PPP) [Time] 55.7 s Invalid Interpretation Code 25.0 - 35.0 seconds AH Auto Coag SS Heparin dose (APTT) Unknown (04/25/23 8:20 PM) Invalid Interpretation Code AH Auto Coag SS aPTT Coag (PPP) [Time] 56.9 s Invalid Interpretation Code 25.0 - 35.0 seconds AH Auto Coag SS Heparin dose (APTT) Heparin IV (04/25/23 2:20 PM) Invalid Interpretation Code AH Auto Coag SS LABORATORYOrdered By: SYSTEM SYSTEM on 04-25-2023 Basophils (Bld) [#/Vol] 0.1 103/mcL Invalid Interpretation Code 0.0 - 0.3 10^3/mcL Workflow SS Basophils/100 WBC (Bld) 0.5 % Invalid Interpretation Code 0.0 - 2.5 % Workflow SS Calcium [Mass/Vol] 8.7 mg/dL Invalid Interpretation Code 8.7 - 10.4 mg/dL ADM SS Chloride [Moles/Vol] 105 mmol/L Invalid Interpretation Code 98 - 110 mEq/L ADM SS CO2 [Moles/Vol] 23 mmol/L Invalid Interpretation Code 22 - 32 mEq/L ADM SS Creatinine [Mass/Vol] 0.71 mg/dL Invalid Interpretation Code 0.50 - 1.20 mg/dL ADM SS Electrolyte Balance 11.0 mEq/L Invalid Interpretation Code 4.0 - 15.0 mEq/L ADM SS Eosinophils (Bld) [#/Vol] 0.0 103/mcL Invalid Interpretation Code 0.0 - 0.7 10^3/mcL Workflow SS Eosinophils/100 WBC (Bld) 0.2 % Invalid Interpretation Code 0.0 - 6.0 % AH Workflow SS Erythrocyte distribution width (RBC) [Ratio] 14.2 % Invalid Interpretation Code 11.5 - 15.5 % AH Workflow SS GFR/1.73 sq M.predicted among blacks MDRD (S/P/Bld) [Vol rate/Area] ml/min/1.73sqm Invalid Interpretation Code AH ADM SS GFR/1.73 sq M.predicted among non-blacks MDRD (S/P/Bld) [Vol rate/Area] ml/min/1.73sqm Invalid Interpretation Code ADM SS Glucose [Mass/Vol] 127 mg/dL Invalid Interpretation Code 82 - 115 mg/dL ADM SS Hematocrit (Bld) [Volume fraction] 36.3 % Invalid Interpretation Code 34.0 - 46.0 % Workflow SS Hemoglobin (Bld) [Mass/Vol] 12.3 G/dL Invalid Interpretation Code 12.0 - 16.0 G/dL AH Workflow SS Lymphocytes (Bld) [#/Vol] 1.3 103/mcL Invalid Interpretation Code 0.9 - 4.3 10^3/mcL Workflow SS Lymphocytes/100 WBC (Bld) 11.1 % Invalid Interpretation Code 20.0 - 40.0 % AH Workflow SS Magnesium [Mass/Vol] 2.3 mg/dL Invalid Interpretation Code 1.6 - 2.4 mg/dL ADM SS MCH (RBC) [Entitic mass] 29.0 pg Invalid Interpretation Code 27.0 - 33.0 pg AH Workflow SS MCHC 33.8 G/dL Invalid Interpretation Code 32.0 - 36.0 G/dL Workflow SS MCV (RBC) [Entitic vol] 85.9 fL Invalid Interpretation Code 80.0 - 99.0 fL Workflow SS Monocytes (Bld) [#/Vol] 0.8 103/mcL Invalid Interpretation Code 0.1 - 1.4 10^3/mcL AH Workflow SS Monocytes/100 WBC (Bld) 6.9 % Invalid Interpretation Code 2.0 - 13.0 % Workflow SS Neutrophils (Bld) [#/Vol] 9.4 103/mcL Invalid Interpretation Code 2.3 - 8.1 10^3/mcL AH Workflow SS Neutrophils/100 WBC (Bld) 81.3 % Invalid Interpretation Code 50.0 - 75.0 % AH Workflow SS Phosphate [Mass/Vol] 2.9 mg/dL Invalid Interpretation Code 2.4 - 5.1 mg/dL ADM SS Platelet mean volume (Bld) [Entitic vol] 7.7 fL Invalid Interpretation Code 6.6 - 10.5 fL Workflow SS Platelets (Bld) [#/Vol] 164 103/mcL Invalid Interpretation Code 150 - 450 10^3/mcL AH Workflow SS Potassium [Moles/Vol] 3.2 mmol/L Invalid Interpretation Code 3.5 - 5.0 mEq/L ADM SS RBC (Bld) [#/Vol] 4.22 106/mcL Invalid Interpretation Code 4.10 - 5.30 10^6/mcL Workflow SS Sodium [Moles/Vol] 139 mmol/L Invalid Interpretation Code 136 - 145 mEq/L ADM SS Urea nitrogen [Mass/Vol] 25.0 mg/dL Invalid Interpretation Code 8.0 - 22.0 mg/dL ADM SS Urea nitrogen/Creatinine [Mass ratio] 35.2 ratio Invalid Interpretation Code 10.0 - 22.0 ratio ADM SS WBC (Bld) [#/Vol] 11.5 103/mcL Invalid Interpretation Code 4.5 - 10.8 10^3/mcL Workflow SS MGon 04-25-2023 Magnesium [Mass/Vol] 2.3 mg/dL Normal 1.6-2.4 [facility] ([place]) Comment on above: Performed By: #### A PTT, CBC, ANEU, ADIFF #### [address] [address] PHOSon 04-25-2023 Phosphate [Mass/Vol] 2.9 mg/dL Normal 2.4-5.1 [facility] ([place]) Comment on above: Result Comment: No te - New Reference Range in effect 20 Performed By: #### A PTT, CBC, ANEU, ADIFF #### [address] [address] XR CHEST 1 VIEWon 04-25-2023 XR CHEST 1 VIEW ORIGINAL EXAMINATION: ONE XRAY VIEW OF THE CHEST 04/25/2023 5:37 am COMPARISON: None. HISTORY: ORDERING SYSTEM PROVIDED HISTORY: Reason for Exam: decreased breath sounds FINDINGS: No pneumothorax, suspected small bilateral effusions, left greater than right. Heart size is normal. Airspace disease at the left lung base. IMPRESSION: Small bilateral effusions, left greater than right with hazy airspace disease at the left lung base. Interpreted by: Fahad Hardin MD Preliminary Report By: Fahad Hardin MD Electronically signed By Fahad Hardin MD Dictated Date: 04/25/2023 7:38:15 AM Prelim Date: 04/25/2023 7:41:49 AM Sign Date: 04/25/2023 7:41:49 AM Ordering Provider: [facility] ([place]) .Auto Diffon 04-24-2023 Basophil, Absolute 0.0 10 3/mcL Normal 0.0-0.3 [facility] ([place]) Comment on above: Performed By: #### A PTT, CBC, ANEU, ADIFF #### [address] [address] Basophils/100 WBC (Bld) 0.3 % Normal 0.0-2.5 [facility] ([place] Comment on above: Performed By: #### A PTT, CBC, ANEU, ADIFF #### [address] [address] Eosinophil, Absolute 0.0 10 3/mcL Normal 0.0-0.7 [facility] ([place]) Comment on above: Performed By: #### A PTT, CBC, ANEU, ADIFF #### [address] [address] Eosinophils/100 WBC (Bld) 0.3 % Normal 0.0-6.0 [facility] ([place] Comment on above: Performed By: #### A PTT, CBC, ANEU, ADIFF #### [address] [address] Lymphocyte, Absolute 0.8 10 3/mcL Low 0.9-4.3 [facility] ([place] Comment on above: Performed By: #### A PTT, CBC, ANEU, ADIFF #### [address] [address] Lymphocytes/100 WBC (Bld) 6.9 % Low 20.0-40.0 [facility] ([place] Comment on above: Performed By: #### A PTT, CBC, ANEU, ADIFF #### [address] [address] Monocyte, Absolute 0.7 10 3/mcL Normal 0.1-1.4 [facility] ([place] Comment on above: Performed By: #### A PTT, CBC, ANEU, ADIFF #### [address] [address] Monocytes/100 WBC (Bld) 6.0 % Normal 2.0-13.0 [facility] [place] Comment on above: Performed By: #### A PTT, CBC, ANEU, ADIFF #### [address] [address] Neutrophils/100 WBC (Bld) 86.5 % High 50.0-75.0 [facility] ([place] Comment on above: Performed By: #### A PTT, CBC, ANEU, ADIFF #### [address] [address] .GFRon 04-24-2023 GFR >60 Normal [facility] ([place]) Comment on above: Result Comment: GFR Population mean for , Non- Americans Ages 20-29 = 116 mL/min/1.73 sq.m. Ages 30-39 = 107 mL/min/1.73 sq.m. Ages 40-49 = 99 mL/min/1.73 sq.m. Ages 50-59 = 93 mL/min/1.73 sq.m. Ages 60-69 = 85 mL/min/1.73 sq.m. Ages 70+ = 75 mL/min/1.73 sq.m. Chronic Kidney Disease: Less than 60 mL/min/1.73 square meters End Stage Renal Disease: Less than 15 mL/min/1.73 square meters Performed By: #### C BC, GFR, ANEU, ADIFF, PBNP, CMP #### [address] [address] GFR Non- >60 Normal [facility] ([place] Comment on above: Result Comment: GFR Population mean for , Non- Americans Ages 20-29 = 116 mL/min/1.73 sq.m. Ages 30-39 = 107 mL/min/1.73 sq.m. Ages 40-49 = 99 mL/min/1.73 sq.m. Ages 50-59 = 93 mL/min/1.73 sq.m. Ages 60-69 = 85 mL/min/1.73 sq.m. Ages 70+ = 75 mL/min/1.73 sq.m. Chronic Kidney Disease: Less than 60 mL/min/1.73 square meters End Stage Renal Disease: Less than 15 mL/min/1.73 square meters Performed By: #### C BC, GFR, ANEU, ADIFF, PBNP, CMP #### [address] [address] .NEUABSon 04-24-2023 Neutrophil, Absolute 10.0 10 3/mcL High 2.3-8.1 A [facility] ([place]) Comment on above: Performed By: #### A PTT, CBC, ANEU, ADIFF #### [place] [address] APTTon 04-24-2023 aPTT Coag (Bld) [Time] 38.2 s High 25.0-35.0 [facility] [place] Comment on above: Result Comment: For Heparin anticoagulation therapy, the recommended therapeutic range is: 54-77 seconds (APTT Correlation with Anti-Xa therapeutic range of 0.3-0.7 units/ml). PLEASE REFERENCE THE PHARMACY PROTOCOL FOR DOSING. Performed By: #### A PTT, CBC, ANEU, ADIFF #### [place] [address] Heparin dose (APTT) Unknown Normal [facility] ([place]) Comment on above: Performed By: #### A PTT, CBC, ANEU, ADIFF #### [address] [address] aPTT Coag (Bld) [Time] 52.8 s High 25.0-35.0 [facility] [place] Comment [place] above: Result Comment: For Heparin anticoagulation therapy, the recommended therapeutic range is: 54-77 seconds (APTT Correlation with Anti-Xa therapeutic range of 0.3-0.7 units/ml). PLEASE REFERENCE THE PHARMACY PROTOCOL FOR DOSING. Performed By: #### C BC, GFR, ANEU, ADIFF, PBNP, CMP #### [address] [address] Heparin dose (APTT) Heparin IV Normal [facility] ([place]) Comment on above: Performed By: #### C BC, GFR, ANEU, ADIFF, PBNP, CMP #### [address] [address] aPTT Coag (Bld) [Time] 102.1 s High 25.0-35.0 [facility] [place] Comment on above: Result Comment: For Heparin anticoagulation therapy, the recommended therapeutic range is: 54-77 seconds (APTT Correlation with Anti-Xa therapeutic range of 0.3-0.7 units/ml). PLEASE REFERENCE THE PHARMACY PROTOCOL FOR DOSING. Performed By: #### A PTT, CBC, ANEU, ADIFF #### [place] [id number] Heparin dose (APTT) Heparin IV Normal [facility] ([place] Comment on above: Performed By: #### A PTT, CBC, ANEU, ADIFF #### [address] [address] CBCon 04-24-2023 Erythrocyte distribution width (RBC) [Ratio] 13.8 % Normal 11.5-15.5 [facility] [place] Comment [place]: Performed By: #### A PTT, CBC, ANEU, ADIFF #### [address] [address] Hematocrit (Bld) [Volume fraction] 39.3 % Normal 34.0-46.0 [facility] [place] Comment [place] above: Performed By: #### A PTT, CBC, ANEU, ADIFF #### [address] [address] Hgb 13.3 G/dL Normal 12.0-16.0 [facility] [place] Comment [place] above: Performed By: #### A PTT, CBC, ANEU, ADIFF #### [address] [address] MCH (RBC) [Entitic mass] 29.1 pg Normal 27.0-33.0 [facility] [place] Comment [place]: Performed By: #### A PTT, CBC, ANEU, ADIFF #### [place] [address] MCHC 33.7 G/dL Normal 32.0-36.0 [facility] [place] Comment [place] above: Performed By: #### A PTT, CBC, ANEU, ADIFF #### [place] [address] MCV (RBC) [Entitic vol] 86.2 fL Normal 80.0-99.0 [facility] [place] Comment on above: Performed By: #### A PTT, CBC, ANEU, ADIFF #### [place] [phone] Platelet 176 10 3/mcL Normal 150-450 [facility] [place] Comment on above: Performed By: #### A PTT, CBC, ANEU, ADIFF #### [place] [address] Platelet mean volume (Bld) [Entitic vol] 7.9 fL Normal 6.6-10.5 [facility] [place] Comment on above: Performed By: #### A PTT, CBC, ANEU, ADIFF #### [place] [address] RBC 4.56 10 6/mcL Normal 4.10-5.30 [facility] [place] Comment on above: Performed By: #### A PTT, CBC, ANEU, ADIFF #### [place] [phone] WBC 11.6 10 3/mcL High 4.5-10.8 [facility] [place] Comment [place] above: Performed By: #### A PTT, CBC, ANEU, ADIFF #### [place] [address] CMPon 04-24-2023 Albumin Level 3.3 G/dL Normal 3.2-4.8 [facility] [place] Comment on [place]: Order Comment: redra w due to hemolysis Performed By: #### C BC, GFR, ANEU, ADIFF, PBNP, CMP #### [address] [address] Albumin/Globulin [Mass ratio] 0.9 {ratio} Normal 0.9-1.6 [facility] ([place] Comment on above: Order Comment: redra w due to hemolysis Performed By: #### C BC, GFR, ANEU, ADIFF, PBNP, CMP #### [address] [address] ALP [Catalytic activity/Vol] 130 U/L High 38-126 [facility] ([place] Comment on above: Order Comment: redra w due to hemolysis Performed By: #### C BC, GFR, ANEU, ADIFF, PBNP, CMP #### [address] [address] ALT [Catalytic activity/Vol] 24 U/L Normal 10-49 [facility] ([place] Comment on above: Order Comment: redra w due to hemolysis Performed By: #### C BC, GFR, ANEU, ADIFF, PBNP, CMP #### [place] [phone] AST [Catalytic activity/Vol] 20 U/L Normal 8-34 [facility] [place] Comment on above: Order Comment: redra w due to hemolysis Performed By: #### C BC, GFR, ANEU, ADIFF, PBNP, CMP #### [address] [address] Bili Total 0.60 mg/dL Normal 0.20-1.20 [facility] ([place] Comment on above: Order Comment: redra w due to hemolysis Result Comment: Use of this assay is not recommended for patients undergoing treatment with eltrombopag due to the potential for falsely elevated results. Performed By: #### C BC, GFR, ANEU, ADIFF, PBNP, CMP #### [place] [phone] BUN/Creatinine Ratio 28.8 ratio High 10.0-22.0 [facility] ([place]) Comment on above: Order Comment: redra w due to hemolysis Performed By: #### C BC, GFR, ANEU, ADIFF, PBNP, CMP #### [address] [address] Calcium [Mass/Vol] 9.0 mg/dL Normal 8.7-10.4 [facility] ([place]) Comment on above: Order Comment: redra w due to hemolysis Performed By: #### C BC, GFR, ANEU, ADIFF, PBNP, CMP #### [address] [address] Chloride [Moles/Vol] 104 mmol/L Normal 98-110 [facility] ([place]) Comment on above: Order Comment: redra w due to hemolysis Performed By: #### C BC, GFR, ANEU, ADIFF, PBNP, CMP #### [address] [address] CO2 [Moles/Vol] 24 mmol/L Normal 22-32 [facility] ([place] Comment on above: Order Comment: redra w due to hemolysis Performed By: #### C BC, GFR, ANEU, ADIFF, PBNP, CMP #### [address] [address] Creatinine [Mass/Vol] 0.73 mg/dL Normal 0.50-1.20 [facility] ([place]) Comment on above: Order Comment: redra w due to hemolysis Performed By: #### C BC, GFR, ANEU, ADIFF, PBNP, CMP #### [address] [address] Electrolyte Balance 10.0 mEq/L Normal 4.0-15.0 [facility] ([place]) Comment on above: Order Comment: redra w due to hemolysis Performed By: #### C BC, GFR, ANEU, ADIFF, PBNP, CMP #### [address] [address] Globulin 3.5 G/dL Normal 1.5-3.8 [facility] ([place] Comment on above: Order Comment: redra w due to hemolysis Performed By: #### C BC, GFR, ANEU, ADIFF, PBNP, CMP #### [address] [address] Glucose [Mass/Vol] 130 mg/dL High 82-115 [facility] ([place]) Comment on above: Order Comment: redra w due to hemolysis Performed By: #### C BC, GFR, ANEU, ADIFF, PBNP, CMP #### [place] [phone] Potassium [Moles/Vol] 4.1 mmol/L Normal 3.5-5.0 [facility] ([place] Comment on above: Order Comment: redra w due to hemolysis Performed By: #### C BC, GFR, ANEU, ADIFF, PBNP, CMP #### [place] [phone] Sodium [Moles/Vol] 138 mmol/L Normal 136-145 [facility] ([place] Comment on above: Order Comment: redra w due to hemolysis Performed By: #### C BC, GFR, ANEU, ADIFF, PBNP, CMP #### [place] [address] Total Protein 6.8 G/dL Normal 5.7-8.2 [facility] ([place] Comment on [place]: Order Comment: redra w due to hemolysis Result Comment: No te - New Reference Range in effect 20 Performed By: #### C BC, GFR, ANEU, ADIFF, PBNP, CMP #### [place] [address] Urea nitrogen [Mass/Vol] 21.0 mg/dL Normal 8.0-22.0 [facility] ([place] Comment on above: Order Comment: redra w due to hemolysis Performed By: #### C BC, GFR, ANEU, ADIFF, PBNP, CMP #### [address] [address] HOMOon 04-24-2023 Homocysteine 10.5 umol/l Normal 3.7-13.9 [facility] ([place] Comment on above: Result Comment: No te - New Reference Range in effect 20 Performed By: #### A PTT, CBC, ANEU, ADIFF #### [place] [phone] IR PULMONARY ANGIO/EKOS CATH PLACEon 04-24-[address] IR PUL[address]ARY ANGIO/EKOS CATH PLACE ORIGINAL Images acquired, not reported on this accession number. Normal [facility] ([place]) LABORATORYOrdered By: SYSTEM SYSTEM on 04-24-2023 Albumin BCP dye [Mass/Vol] 3.3 G/dL Invalid Interpretation Code 3.2 - 4.8 G/dL AH ADM SS Albumin/Globulin [Mass ratio] 0.9 {ratio} Invalid Interpretation Code 0.9 - 1.6 ratio AH ADM SS ALP [Catalytic activity/Vol] 130 U/L Invalid Interpretation Code 38 - 126 U/L AH ADM SS ALT No additional P-5'-P [Catalytic activity/Vol] 24 U/L Invalid Interpretation Code 10 - 49 U/L ADM SS AST [Catalytic activity/Vol] 20 U/L Invalid Interpretation Code 8 - 34 U/L ADM SS Basophils (Bld) [#/Vol] 0.0 103/mcL Invalid Interpretation Code 0.0 - 0.3 10^3/mcL AH Workflow SS Basophils/100 WBC (Bld) 0.3 % Invalid Interpretation Code 0.0 - 2.5 % AH Workflow SS Bilirubin [Mass/Vol] 0.60 mg/dL Invalid Interpretation Code 0.20 - 1.20 mg/dL ADM SS Calcium [Mass/Vol] 9.0 mg/dL Invalid Interpretation Code 8.7 - 10.4 mg/dL AH ADM SS Chloride [Moles/Vol] 104 mmol/L Invalid Interpretation Code 98 - 110 mEq/L ADM SS CO2 [Moles/Vol] 24 mmol/L Invalid Interpretation Code 22 - 32 mEq/L ADM SS Creatinine [Mass/Vol] 0.73 mg/dL Invalid Interpretation Code 0.50 - 1.20 mg/dL AH ADM SS Electrolyte Balance 10.0 mEq/L Invalid Interpretation Code 4.0 - 15.0 mEq/L ADM SS Eosinophils (Bld) [#/Vol] 0.0 103/mcL Invalid Interpretation Code 0.0 - 0.7 10^3/mcL AH Workflow SS Eosinophils/100 WBC (Bld) 0.3 % Invalid Interpretation Code 0.0 - 6.0 % AH Workflow SS Erythrocyte distribution width (RBC) [Ratio] 13.8 % Invalid Interpretation Code 11.5 - 15.5 % AH Workflow SS GFR/1.73 sq M.predicted among blacks MDRD (S/P/Bld) [Vol rate/Area] ml/min/1.73sqm Invalid Interpretation Code ADM SS GFR/1.73 sq M.predicted among non-blacks MDRD (S/P/Bld) [Vol rate/Area] ml/min/1.73sqm Invalid Interpretation Code ADM SS Globulin 3.5 G/dL Invalid Interpretation Code 1.5 - 3.8 G/dL ADM SS Glucose [Mass/Vol] 130 mg/dL Invalid Interpretation Code 82 - 115 mg/dL ADM SS HbA1c (Bld) [Mass fraction] 5.4 % Invalid Interpretation Code 4.0 - 6.0 % Auto Chem SS Hematocrit (Bld) [Volume fraction] 39.3 % Invalid Interpretation Code 34.0 - 46.0 % Workflow SS Hemoglobin (Bld) [Mass/Vol] 13.3 G/dL Invalid Interpretation Code 12.0 - 16.0 G/dL Workflow SS Homocysteine [Moles/Vol] 10.5 umol/L Invalid Interpretation Code 3.7 - 13.9 umol/l ADM SS Lymphocytes (Bld) [#/Vol] 0.8 103/mcL Invalid Interpretation Code 0.9 - 4.3 10^3/mcL Workflow SS Lymphocytes/100 WBC (Bld) 6.9 % Invalid Interpretation Code 20.0 - 40.0 % Workflow SS Magnesium [Mass/Vol] 2.3 mg/dL Invalid Interpretation Code 1.6 - 2.4 mg/dL ADM SS MCH (RBC) [Entitic mass] 29.1 pg Invalid Interpretation Code 27.0 - 33.0 pg Workflow SS MCHC 33.7 G/dL Invalid Interpretation Code 32.0 - 36.0 G/dL Workflow SS MCV (RBC) [Entitic vol] 86.2 fL Invalid Interpretation Code 80.0 - 99.0 fL Workflow SS Monocytes (Bld) [#/Vol] 0.7 103/mcL Invalid Interpretation Code 0.1 - 1.4 10^3/mcL Workflow SS Monocytes/100 WBC (Bld) 6.0 % Invalid Interpretation Code 2.0 - 13.0 % Workflow SS Neutrophils (Bld) [#/Vol] 10.0 103/mcL Invalid Interpretation Code 2.3 - 8.1 10^3/mcL Workflow SS Neutrophils/100 WBC (Bld) 86.5 % Invalid Interpretation Code 50.0 - 75.0 % AH Workflow SS Phosphate [Mass/Vol] 2.5 mg/dL Invalid Interpretation Code 2.4 - 5.1 mg/dL AH ADM SS Platelet mean volume (Bld) [Entitic vol] 7.9 fL Invalid Interpretation Code 6.6 - 10.5 fL AH Workflow SS Platelets (Bld) [#/Vol] 176 103/mcL Invalid Interpretation Code 150 - 450 10^3/mcL AH Workflow SS Potassium [Moles/Vol] 4.1 mmol/L Invalid Interpretation Code 3.5 - 5.0 mEq/L AH ADM SS Protein [Mass/Vol] 6.8 G/dL Invalid Interpretation Code 5.7 - 8.2 G/dL AH ADM SS RBC (Bld) [#/Vol] 4.56 106/mcL Invalid Interpretation Code 4.10 - 5.30 10^6/mcL AH Workflow SS Sodium [Moles/Vol] 138 mmol/L Invalid Interpretation Code 136 - 145 mEq/L AH ADM SS Urea nitrogen [Mass/Vol] 21.0 mg/dL Invalid Interpretation Code 8.0 - 22.0 mg/dL AH ADM SS Urea nitrogen/Creatinine [Mass ratio] 28.8 ratio Invalid Interpretation Code 10.0 - 22.0 ratio AH ADM SS WBC (Bld) [#/Vol] 11.6 103/mcL Invalid Interpretation Code 4.5 - 10.8 10^3/mcL AH Workflow SS LABORATORYOrdered By: Shai Finn on 04-24-2023 Antithrombin actual/normal Chromogenic method (PPP) [Rel catalytic activity/Vol] 83 1 Invalid Interpretation Code 84 - 126 % AH Auto Coag SS aPTT after addition of protein C activator+Factor V depleted plasma/Coagulation surface induced Coag (PPP) [Time ratio] 2.9 ratio Invalid Interpretation Code AH Auto Coag SS Comment on above: Result Comment: This APCV result demonstrates no Resistance to Activated Protein C. dRVVT Coag (PPP) [Time] 46.2 s Invalid Interpretation Code 30.0 - 42.0 seconds AH Auto Coag SS Comment on above: Result Comment: DRVV T Confirmation Test Performed: NEGATIVE Lupus anticoagulant (PPP) [Interp] See Below 5 (04/24/23 4:12 PM) Invalid Interpretation Code AH Auto Coag SS Comment on above: Result Comment: No e vidence of lupus anticoagulant. Platelet neutraliz. Negative (04/24/23 4:12 PM) Invalid Interpretation Code AH Auto Coag SS Protein C actual/normal Coag (PPP) [Relative time] 98 1 Invalid Interpretation Code >=80% AH Auto Coag SS Protein S Free Ag actual/normal IA (PPP) [Relative mass conc] 85 1 Invalid Interpretation Code 55 - 124 % AH Auto Coag SS LABORATORYOrdered By: JENNY OLSON CONTRIBUTOR_SYSTEM on 04-24-2023 Beta-2 Glycoprotein Abs, IgA MANISHA Invalid Interpretation Code <=20SAU Sendouts SS Comment on above: Result Comment: Perf ormed By: [employer] [address] [place] [address] Hydrographical Technical Officer: Dontrell Arce MD, PhD IgG Cardiolipin Ab GPL Invalid Interpretation Code <15.0GPL Sendouts SS Comment on above: Result Comment: <15 GPL Negative 15-20 GPL Indeterminate >20 GPL Positive The following results were obtained with the [employer] QUANTA Lite RYANNE IgG III TRISH. Cardiolipin IgG values obtained with the different manufacturers' assay methods may not be used interchangeably. The magnitude of the reported IgG levels cannot be correlated to an endpoint titer. This test is used as an aid in diagnosis of anti-phospholipid syndrome. The test may occasionally be positive in patients with a range of underlying conditions, secondary syphilis, HIV infection, active Hepatitis C, endocarditis, among others. Clinical correlation is required. Performed By: [place] [address] Needle Loom Tender: Felix See III, M.D. IA#: [id number] IgM Cardiolipin Ab MPL Invalid Interpretation Code <12.5MPL Sendouts SS Comment on above: Result Comment: <12. 5 MPL Negative 12.5-20 MPL Indeterminate >20 MPL Positive The following results were obtained with the [employer] QUANTA Lite RYANNE IgM III TRISH. Cardiolipin IgM values obtained with the different manufacturers' assay methods may not be used interchangeably. The magnitude of the reported IgM levels cannot be correlated to an endpoint titer. This test is used as an aid in diagnosis of anti-phospholipid syndrome. The test may occasionally be positive in patients with a range of underlying conditions, secondary syphilis, HIV infection, active Hepatitis C, endocarditis, among others. Clinical correlation is required. Performed By: [facility] [address] [place] [address] Needle Loom Tender: Felix See III, M.D. CLIA#: [id number] PT Gene Mut Prothrombin Gene Mutation Invalid Interpretation Code AH Sendouts SS Comment on above: Result Comment: Byron alexander Accession Number: [id number] Result: NORMAL Interpretation: The DNA sample is negative for the c.*97G>A variant (legacy name 51969K>A) in the 3' untranslated region of the Factor II (F2) gene. This result is not associated with an increased risk of thromboembolic disease. Thromboembolic disease is a multifactorial disorder and other causes are not excluded by this result. Methodology: Isolated Genomic DNA from the patient's blood specimen is evaluated for the c*97G>A ([id number]) variant of the F2 gene [RefSeq [id number];GRCh38/hg38] by multiplex polymerase chain reaction (PCR) followed by melting curve analysis. Limitations: This assay is designed to detect the c.*97G>A (65512G>A) variant in the F2 gene. Uncommon variants or single nucleotide polymorphisms may affect binding of probes and may rarely result in false negative, false positive or indeterminate results. This assay does not detect other disease-associated rare variants in F2 or other causes of thromboembolic disease. Disclaimer: This test was developed and its performance characteristics determined by [facility] [place] ([facility]). It has not been cleared or approved by the FDA. [facility] is regulated under CLIA as certified to perform high- complexity testing. This test is used for clinical purposes. It should not be regarded as investigational or for research. Testing and interpretation performed at [facility], [address], [place] [address]. CLIA Number: [id number] References: 1) Inheritied Thrombophilias in . ACOG Practice Bulletin. No. 197. [place] [employer]. Obsete Gynecol 2018;132:e18-34. 2) García SR, Desiree FR, Maia PH, and Yun MARISCAL. A common genetic variation in the 3'-untranslated region of the prothrombin gene is associated with elevated plasma prothrombin levels and an increase in venous thrombosis. Blood 88:3698-703, 1995. 3) Ebony Hernández, Segundo Rosas, Amie Sanders, Chiara Santizo. Prothrombin 96582D>T: 16 new cases, association with the 29041G>G polymorphism, and literature review. J Thromb Haemost. 2009;9:1585-7. As reviewed by Opal Tucker, PhD, HCLD Performed By: [facility] [address]. [place] [address] Needle Loom Tender: Felix NAYAKIA#: [id number] LABORATORYOrdered By: Neftali Tijerina on 04-24-2023 Nuclear Ab IF Ql (S) Neg 40 (04/24/23 4:12 PM) Invalid Interpretation Code Neg 40 AH Man Viro/Sero SS LABORATORYOrdered By: Samantha Villasenor on 04-24-2023 Blood Glucose Testing Reason Routine (04/24/23 11:30 AM) [facility] Glucose [Mass/Vol] 131 mg/dL Invalid Interpretation Code 82 - 115 mg/dL [facility] MGon 04-24-2023 Magnesium [Mass/Vol] 2.3 mg/dL Normal 1.6-2.4 [facility] ([place]) Comment on above: Performed By: #### C BC, GFR, ANEU, ADIFF, PBNP, CMP #### [address] [address] PHOSon 04-24-2023 Phosphate [Mass/Vol] 2.5 mg/dL Normal 2.4-5.1 [facility] ([place]) Comment on above: Result Comment: No te - New Reference Range in effect 20 Performed By: #### C BC, GFR, ANEU, ADIFF, PBNP, CMP #### [address] [address] XR CHEST 1 VIEWon 04-24-2023 XR CHEST 1 VIEW ORIGINAL EXAMINATION: ONE XRAY VIEW OF THE CHEST04/24/2023 6:20 pm CHEST ONE VIEW AP/PA COMPARISON: 04/24/2023 HISTORY: ORDERING SYSTEM PROVIDED HISTORY: Reason for Exam: [id number] ^ FINDINGS: Lines/Tubes: None. Interval removal of a arterial catheter. Lungs: No evidence of pneumothorax. New blunting of the left costophrenic angle and new subtle patchy opacification of the right greater than left perihilar regions. Heart/Mediastinum: Mildly enlarged in size with prominence of the pulmonary arteries, not significantly changed. Bones/Soft Tissues: Unchanged. IMPRESSION: New patchy opacities of the right greater than left perihilar region could represent pulmonary infarcts or hemorrhage secondary to known pulmonary emboli. Developing pneumonia is not excluded. New small left pleural effusion. Interpreted by: Dariusz Giles Preliminary Report By: Dariusz Giles Electronically signed By Dariusz Giles Dictated Date: 04/24/2023 7:14:55 PM Prelim Date: 04/24/2023 7:18:41 PM Sign Date: 04/24/2023 7:18:41 PM Ordering Provider: LEONA MCNAIR [facility]) XR CHEST 1 VIEW ORIGINAL EXAMINATION: ONE XRAY VIEW OF THE CHEST04/24/2023 12:58 pm COMPARISON: Pulmonary angio/EKOS catheter 04/24/2023, CTA chest 04/22/2023 images only HISTORY: ORDERING SYSTEM PROVIDED HISTORY: Reason for Exam: tachypnea FINDINGS: Inferior approach EKOS catheter which is projecting over the right mid lung and suspected to be located within one of the branches of the right pulmonary artery. The cardiomediastinal silhouette is within normal limits. Mild pulmonary vascular congestion. No focal consolidation, pneumothorax or large volume pleural effusion. No acute osseous abnormality. IMPRESSION: Right-sided EKOS catheter as above. Suspect mild pulmonary vascular congestion. I have personally reviewed the images of this examination and agree with the resident's findings and interpretation. RECOMMENDATIONS: Unavailable Interpreted by: Chogn Sanabria DO Preliminary Report By: Shruthi Cheung Electronically signed By Chong Sanabria DO Dictated Date: 04/24/2023 1:09:35 PM Prelim Date: 04/24/2023 1:16:27 PM Sign Date: 04/24/2023 1:23:03 PM Ordering Provider: FELIPE HAWTHORNE [facility] ([place]) APTTon 04-23-2023 aPTT Coag (Bld) [Time] 93.3 s High 25.0-35.0 [facility] ([place] Comment on above: Result Comment: For Heparin anticoagulation therapy, the recommended therapeutic range is: 54-77 seconds (APTT Correlation with Anti-Xa therapeutic range of 0.3-0.7 units/ml). PLEASE REFERENCE THE PHARMACY PROTOCOL FOR DOSING. Performed By: #### A PTT, CBC, ANEU, ADIFF #### [address] [address] Heparin dose (APTT) Heparin IV Normal [facility] ([place]) Comment on above: Performed By: #### A PTT, CBC, ANEU, ADIFF #### [address] [address] aPTT Coag (Bld) [Time] 59.6 s High 25.0-35.0 [facility] ([place] Comment on above: Result Comment: For Heparin anticoagulation therapy, the recommended therapeutic range is: 54-77 seconds (APTT Correlation with Anti-Xa therapeutic range of 0.3-0.7 units/ml). PLEASE REFERENCE THE PHARMACY PROTOCOL FOR DOSING. Performed By: #### A PTT, CBC, ANEU, ADIFF #### [address] [address] Heparin dose (APTT) Heparin IV Normal [facility] ([place]) Comment on above: Performed By: #### A PTT, CBC, ANEU, ADIFF #### [address] [address] aPTT Coag (Bld) [Time] 76.6 s High 25.0-35.0 [facility] ([place] Comment on above: Result Comment: For Heparin anticoagulation therapy, the recommended therapeutic range is: 54-77 seconds (APTT Correlation with Anti-Xa therapeutic range of 0.3-0.7 units/ml). PLEASE REFERENCE THE PHARMACY PROTOCOL FOR DOSING. Performed By: #### A PTT, CBC, ANEU, ADIFF #### [address] [address] Heparin dose (APTT) Heparin IV Normal [facility] ([place]) Comment on above: Performed By: #### A PTT, CBC, ANEU, ADIFF #### [place] [address] LABORATORYOrdered By: Angeli Shaffer on 04-23-2023 Lactate [Moles/Vol] 1.7 mmol/L Invalid Interpretation Code 0.2 - 2.0 mmol/L Auto Chem SS LABORATORYOrdered By: SYSTEM SYSTEM on 04-23-2023 Troponin I.cardiac DL <= 0.01 ng/mL [Mass/Vol] 117.43 ng/L Invalid Interpretation Code 0.00 - 34.00 ng/L AH ADM SS Troponin I.cardiac DL <= 0.01 ng/mL [Mass/Vol] 204.26 ng/L Invalid Interpretation Code 0.00 - 34.00 ng/L AH ADM SS LACon 04-23-2023 Lactic Acid Lvl 1.7 mmol/L Normal 0.2-2.0 [facility] [place] Comment on above: Performed By: #### A PTT, CBC, ANEU, ADIFF #### [place] [address] TROPHSon 04-23-2023 Troponin I High Sensitivity 117.43 ng/L High 0.00-34.00 [facility] ([place] Comment on above: Result Comment: If t he High Sensitive Troponin result is below the 99th percentile value (<45 ng/L) at the first blood draw, at least two additional blood samples should be drawn before results are interpreted as negative for AMI. Performed By: #### A PTT #### [place] [address] Troponin I High Sensitivity 204.26 ng/L High 0.00-34.00 [facility] ([place] Comment on above: Result Comment: If t he High Sensitive Troponin result is below the 99th percentile value (<45 ng/L) at the first blood draw, at least two additional blood samples should be drawn before results are interpreted as negative for AMI. Performed By: #### A PTT, CBC, ANEU, ADIFF #### [place] [address] .Auto Diffon 04-22-2023 Basophil, Absolute 0.0 10 3/mcL Normal 0.0-0.3 [facility] ([place]) Comment on above: Performed By: #### C BC, GFR, ANEU, ADIFF, PBNP, CMP #### [address] [address] Basophils/100 WBC (Bld) 0.2 % Normal 0.0-2.5 [facility] ([place]) Comment on above: Performed By: #### C BC, GFR, ANEU, ADIFF, PBNP, CMP #### [address] [address] Eosinophil, Absolute 0.1 10 3/mcL Normal 0.0-0.7 [facility] ([place]) Comment on above: Performed By: #### C BC, GFR, ANEU, ADIFF, PBNP, CMP #### [address] [address] Eosinophils/100 WBC (Bld) 0.5 % Normal 0.0-6.0 [facility] ([place]) Comment on above: Performed By: #### C BC, GFR, ANEU, ADIFF, PBNP, CMP #### [address] [address] Lymphocyte, Absolute 1.4 10 3/mcL Normal 0.9-4.3 [facility] ([place]) Comment on above: Performed By: #### C BC, GFR, ANEU, ADIFF, PBNP, CMP #### [address] [address] Lymphocytes/100 WBC (Bld) 13.1 % Low 20.0-40.0 [facility] ([place]) Comment on above: Performed By: #### C BC, GFR, ANEU, ADIFF, PBNP, CMP #### [address] [address] Monocyte, Absolute 0.6 10 3/mcL Normal 0.1-1.4 [facility] ([place]) Comment on above: Performed By: #### C BC, GFR, ANEU, ADIFF, PBNP, CMP #### [address] [address] Monocytes/100 WBC (Bld) 5.4 % Normal 2.0-13.0 [facility] ([place]) Comment on above: Performed By: #### C BC, GFR, ANEU, ADIFF, PBNP, CMP #### [address] [address] Neutrophils/100 WBC (Bld) 80.8 % High 50.0-75.0 [facility] ([place] Comment on above: Performed By: #### C BC, GFR, ANEU, ADIFF, PBNP, CMP #### [address] [address] .GFRon 04-22-2023 GFR Non- >60 Normal [facility] ([place] Comment on above: Result Comment: GFR Population mean for , Non- Americans Ages 20-29 = 116 mL/min/1.73 sq.m. Ages 30-39 = 107 mL/min/1.73 sq.m. Ages 40-49 = 99 mL/min/1.73 sq.m. Ages 50-59 = 93 mL/min/1.73 sq.m. Ages 60-69 = 85 mL/min/1.73 sq.m. Ages 70+ = 75 mL/min/1.73 sq.m. Chronic Kidney Disease: Less than 60 mL/min/1.73 square meters End Stage Renal Disease: Less than 15 mL/min/1.73 square meters Performed By: #### C BC, GFR, ANEU, ADIFF, PBNP, CMP #### [address] [address] GFR >60 Normal [facility] ([place]) Comment on above: Result Comment: GFR Population mean for , Non- Americans Ages 20-29 = 116 mL/min/1.73 sq.m. Ages 30-39 = 107 mL/min/1.73 sq.m. Ages 40-49 = 99 mL/min/1.73 sq.m. Ages 50-59 = 93 mL/min/1.73 sq.m. Ages 60-69 = 85 mL/min/1.73 sq.m. Ages 70+ = 75 mL/min/1.73 sq.m. Chronic Kidney Disease: Less than 60 mL/min/1.73 square meters End Stage Renal Disease: Less than 15 mL/min/1.73 square meters Performed By: #### C BC, GFR, ANEU, ADIFF, PBNP, CMP #### [place] [address] .NEUABSon 04-22-2023 Neutrophil, Absolute 8.7 10 3/mcL High 2.3-8.1 [facility] ([place]) Comment on above: Performed By: #### C BC, GFR, ANEU, ADIFF, PBNP, CMP #### [place] [address] APTTon 04-22-2023 aPTT Coag (Bld) [Time] 132.1 s Critically abnormal 25.0-35.0 [facility] ([place] Comment on above: Result Comment: For Heparin anticoagulation therapy, the recommended therapeutic range is: 54-77 seconds (APTT Correlation with Anti-Xa therapeutic range of 0.3-0.7 units/ml). PLEASE REFERENCE THE PHARMACY PROTOCOL FOR DOSING. Performed By: #### A PTT #### [place] [address] Heparin dose (APTT) Heparin IV Normal [facility] ([place]) Comment on above: Performed By: #### A PTT #### [place] [address] CBCon 04-22-2023 Erythrocyte distribution width (RBC) [Ratio] 14.0 % Normal 11.5-15.5 [facility] ([place] Comment on above: Performed By: #### C BC, GFR, ANEU, ADIFF, PBNP, CMP #### [place] [address] Hematocrit (Bld) [Volume fraction] 40.6 % Normal 34.0-46.0 [facility] ([place] Comment on above: Performed By: #### C BC, GFR, ANEU, ADIFF, PBNP, CMP #### [place] [address] Hgb 13.9 G/dL Normal 12.0-16.0 [facility] ([place] Comment on above: Performed By: #### C BC, GFR, ANEU, ADIFF, PBNP, CMP #### [facility] [address] [place], [place] [address] MCH (RBC) [Entitic mass] 29.4 pg Normal 27.0-33.0 [facility] [place] Comment on above: Performed By: #### C BC, GFR, ANEU, ADIFF, PBNP, CMP #### [place] [address] MCHC 34.3 G/dL Normal 32.0-36.0 [facility] ([place] Comment on above: Performed By: #### C BC, GFR, ANEU, ADIFF, PBNP, CMP #### [place] [address] MCV (RBC) [Entitic vol] 85.9 fL Normal 80.0-99.0 [facility] ([place] Comment on above: Performed By: #### C BC, GFR, ANEU, ADIFF, PBNP, CMP #### [place] [address] Platelet 181 10 3/mcL Normal 150-450 [facility] ([place] Comment on above: Performed By: #### C BC, GFR, ANEU, ADIFF, PBNP, CMP #### [place] [address] Platelet mean volume (Bld) [Entitic vol] 7.8 fL Normal 6.6-10.5 [facility] ([place] Comment on above: Performed By: #### C BC, GFR, ANEU, ADIFF, PBNP, CMP #### [place] [address] RBC 4.73 10 6/mcL Normal 4.10-5.30 [facility] [place] Comment on above: Performed By: #### C BC, GFR, ANEU, ADIFF, PBNP, CMP #### [place] [id number] WBC 10.8 10 3/mcL Normal 4.5-10.8 [facility] ([place] Comment on above: Performed By: #### C BC, GFR, ANEU, ADIFF, PBNP, CMP #### [place] [address] CMPon 04-22-2023 Albumin Level 3.7 G/dL Normal 3.2-4.8 [facility] ([place] Comment on above: Performed By: #### C BC, GFR, ANEU, ADIFF, PBNP, CMP #### [address] [address] Albumin/Globulin [Mass ratio] 1.3 {ratio} Normal 0.9-1.6 [facility] ([place] Comment on above: Performed By: #### C BC, GFR, ANEU, ADIFF, PBNP, CMP #### [address] [address] ALP [Catalytic activity/Vol] 112 U/L Normal 38-126 [facility] ([place] Comment on above: Performed By: #### C BC, GFR, ANEU, ADIFF, PBNP, CMP #### [address] [address] ALT [Catalytic activity/Vol] 23 U/L Normal 10-49 [facility] ([place] Comment on above: Performed By: #### C BC, GFR, ANEU, ADIFF, PBNP, CMP #### [address] [address] AST [Catalytic activity/Vol] 21 U/L Normal 8-34 [facility] ([place] Comment on above: Performed By: #### C BC, GFR, ANEU, ADIFF, PBNP, CMP #### [address] [address] Bili Total 0.70 mg/dL Normal 0.20-1.20 [facility] ([place] Comment on above: Result Comment: Use of this assay is not recommended for patients undergoing treatment with eltrombopag due to the potential for falsely elevated results. Performed By: #### C BC, GFR, ANEU, ADIFF, PBNP, CMP #### [address] [address] BUN/Creatinine Ratio 24.6 ratio High 10.0-22.0 [facility] ([place]) Comment on above: Performed By: #### C BC, GFR, ANEU, ADIFF, PBNP, CMP #### [address] [address] Calcium [Mass/Vol] 9.0 mg/dL Normal 8.7-10.4 [facility] ([place]) Comment on above: Performed By: #### C BC, GFR, ANEU, ADIFF, PBNP, CMP #### [address] [address] Chloride [Moles/Vol] 104 mmol/L Normal 98-110 [facility] ([place]) Comment on above: Performed By: #### C BC, GFR, ANEU, ADIFF, PBNP, CMP #### [address] [address] CO2 [Moles/Vol] 21 mmol/L Low 22-32 [facility] ([place] Comment on above: Performed By: #### C BC, GFR, ANEU, ADIFF, PBNP, CMP #### [place] [id number] Creatinine [Mass/Vol] 0.69 mg/dL Normal 0.50-1.20 [facility] ([place]) Comment on above: Performed By: #### C BC, GFR, ANEU, ADIFF, PBNP, CMP #### [place] [id number] Electrolyte Balance 17.0 mEq/L High 4.0-15.0 [facility] ([place]) Comment on above: Performed By: #### C BC, GFR, ANEU, ADIFF, PBNP, CMP #### [place] [id number] Globulin 2.8 G/dL Normal 1.5-3.8 [facility] ([place] Comment on above: Performed By: #### C BC, GFR, ANEU, ADIFF, PBNP, CMP #### [place] [id number] Glucose [Mass/Vol] 127 mg/dL High 82-115 [facility] ([place]) Comment on above: Performed By: #### C BC, GFR, ANEU, ADIFF, PBNP, CMP #### [place] [id number] Potassium [Moles/Vol] 4.0 mmol/L Normal 3.5-5.0 [facility] ([place]) Comment on above: Performed By: #### C BC, GFR, ANEU, ADIFF, PBNP, CMP #### [address] [address] Sodium [Moles/Vol] 142 mmol/L Normal 136-145 [facility] ([place]) Comment on above: Performed By: #### C BC, GFR, ANEU, ADIFF, PBNP, CMP #### [place] [id number] [address] [place] [address] Total Protein 6.5 G/dL Normal 5.7-8.2 [facility] ([place]) Comment on above: Result Comment: No te - New Reference Range in effect 20 Performed By: #### C BC, GFR, ANEU, ADIFF, PBNP, CMP #### [address] [address] Urea nitrogen [Mass/Vol] 17.0 mg/dL Normal 8.0-22.0 [facility] ([place] Comment on above: Performed By: #### C BC, GFR, ANEU, ADIFF, PBNP, CMP #### [address] [address] LABORATORYOrdered By: SYSTEM SYSTEM on 04-22-2023 Albumin BCP dye [Mass/Vol] 3.7 G/dL Invalid Interpretation Code 3.2 - 4.8 G/dL ADM SS Albumin/Globulin [Mass ratio] 1.3 {ratio} Invalid Interpretation Code 0.9 - 1.6 ratio ADM SS ALP [Catalytic activity/Vol] 112 U/L Invalid Interpretation Code 38 - 126 U/L ADM SS ALT No additional P-5'-P [Catalytic activity/Vol] 23 U/L Invalid Interpretation Code 10 - 49 U/L ADM SS AST [Catalytic activity/Vol] 21 U/L Invalid Interpretation Code 8 - 34 U/L ADM SS Bilirubin [Mass/Vol] 0.70 mg/dL Invalid Interpretation Code 0.20 - 1.20 mg/dL AH ADM SS Globulin 2.8 G/dL Invalid Interpretation Code 1.5 - 3.8 G/dL ADM SS Protein [Mass/Vol] 6.5 G/dL Invalid Interpretation Code 5.7 - 8.2 G/dL ADM SS Troponin I.cardiac DL <= 0.01 ng/mL [Mass/Vol] 333.21 ng/L Invalid Interpretation Code 0.00 - 34.00 ng/L ADM SS LABORATORYOrdered By: Lisa Novakht on 04-22-2023 Natriuretic peptide.B prohormone N-Terminal [Mass/Vol] 6059 pg/mL Invalid Interpretation Code 0 - 900 pg/mL Auto Chem SS PBNPon 04-22-2023 Natriuretic peptide B (Bld) [Mass/Vol] 6059 pg/mL High 0-900 [facility] ([place] Comment on above: Result Comment: NT-p roBNP results of less than 300 pg/mL effectively rules out acute congestive heart failure with 99% negative predictive value. Performed By: #### A PTT, CBC, ANEU, ADIFF #### [address] [facility] Troponin I High Sensitivity 333.21 ng/L High 0.00-34.00 [facility] ([place]) Comment on above: Result Comment: If t he High Sensitive Troponin result is below the 99th percentile value (<45 ng/L) at the first blood draw, at least two additional blood samples should be drawn before results are interpreted as negative for AMI. Performed By: #### A PTT, CBC, ANEU, ADIFF #### [address] [address] HbA1c (Bld)on 01-20-2023 Average glucose Estimated from glycated hemoglobin (Bld) [Mass/Vol] 103 mg/dL Normal [facility] Comment on above: Order Comment: Speci men Type: BLOOD SPECIMEN Ordering Facility: [facility] Address: [address] [place] [address] Result Comment: eAG: (Estimated average glucose) is a calculated value from HgbA1c and is enrollment representative of the average blood glucose level in the last 2-3 month period. Performed By: #### 5 5454-3 #### [facility] CLIA [id number] [address] [place] [address] [place] HbA1c (Bld) [Mass fraction] 5.2 % Normal 4.3-5.6 [facility] Comment on above: Order Comment: Speci men Type: BLOOD SPECIMEN Ordering Facility: [facility] Address: [address] , [place] [address] Result Comment: J[place] Diabetes Association guidelines indicate that patients with HgbA1c in the range 5.7-6.4% are at increased risk for development of diabetes, and intervention by lifestyle modification may be beneficial. HgbA1c greater or equal to 6.5% is considered diagnostic of diabetes. Performed By: #### 5 5454-3 #### [facility] CLIA [id number] [address] [place], [place] [address] [place] [id number] [place] Colonoscopyon 12-15-2022 Colonoscopy [facility] Gastrointestinal Endoscopy Patient Name: Ashley Tuttle Procedure Date: 12/15/2022 11:40 AM Date of : 1955 Admit Type: Outpatient Age: 67 Gender: Female Note Status: Finalized Procedure: Colonoscopy - screening - high risk Indications: High risk colon cancer surveillance: Personal history of colonic polyps Providers: Thelma Fenton MD Patient Profile: Refer to note in patient chart for documentation of history and physical. Last Colonoscopy: 5 years ago. Referring Physician: Thelma Fenton MD (Referring MD) Selvin Simmons Medicines: Midazolam 7 mg IV, Fentanyl 100 micrograms IV, Diphenhydramine 50 mg IV, Ondansetron 4 mg IV Complications: No immediate complications. Requesting Provider: Procedure: Pre-Anesthesia Assessment: - Prior to the procedure, a History and Physical was performed, and patient medications and allergies were reviewed. The patient is competent. The risks and benefits of the procedure and the sedation options and risks were discussed with the patient. All questions were answered and informed consent was obtained. Patient identification and proposed procedure were verified by the physician in the pre-procedure area. Mental Status Examination: alert and oriented. Airway Examination: normal oropharyngeal airway and neck mobility. Respiratory Examination: clear to auscultation. CV Examination: normal. Prophylactic Antibiotics: The patient does not require prophylactic antibiotics. Prior Anticoagulants: The patient has taken no anticoagulant or antiplatelet agents. ASA Grade Assessment: II - A patient with mild systemic disease. After reviewing the risks and benefits, the patient was deemed in satisfactory condition to undergo the procedure. The anesthesia plan was to use moderate sedation / analgesia (conscious sedation). Immediately prior to administration of medications, the patient was re-assessed for adequacy to receive sedatives. The heart rate, respiratory rate, oxygen saturations, blood pressure, adequacy of pulmonary ventilation, and response to care were monitored throughout the procedure. The physical status of the patient was re-assessed after the procedure. After I obtained informed consent, the scope was passed under direct vision. Throughout the procedure, the patient's blood pressure, pulse, and oxygen saturations were monitored continuously. The Colonoscope was introduced through the anus and advanced to the cecum, identified by the ileocecal valve. The colonoscopy was performed without difficulty. The patient tolerated the procedure well. The quality of the bowel preparation was suboptimal. There was still retained fecal material which required lavage and aspiration to visualize the ojeda adequately. This was done, but took some time, however, the ojeda were visualized adequately. The appendiceal orifice and the rectum were photographed. Moderate Sedation: The administration of moderate sedation was initiated at 11:42 AM. Moderate (conscious) sedation was personally administered by the endoscopist. The following parameters were monitored: oxygen saturation, heart rate, blood pressure, respiratory rate, EKG, adequacy of pulmonary ventilation, and response to care. Total physician intraservice time was 26 minutes. Findings: The perianal and digital rectal examinations were normal. Non-bleeding internal hemorrhoids were found. lipoma on ileocecal lip Impression: - Non-bleeding internal hemorrhoids. - No specimens collected. Recommendation: - Repeat colonoscopy in 5 years for surveillance - family history of colon cancer. - Return to primary care physician PRN. - Patient has a contact number available for emergencies. The signs and symptoms of potential delayed complications were discussed with the patient. Return to normal activities tomorrow. Written discharge instructions were provided to the patient. - Continue present medications. - Resume previous diet. Procedure Code(s): --- Professional --- 44215, Colonoscopy, flexible; diagnostic, including collection of specimen(s) by brushing or washing, when performed (separate procedure) 13186, 59, Moderate sedation services provided by the same physician or other qualified health long term care pharmacist performing the diagnostic or therapeutic service that the sedation supports, requiring the presence of an independent trained observer to assist in the monitoring of the patient's level of consciousness and physiological status; initial 15 minutes of intraservice time, patient age 5 years or older [address], Moderate sedation; each additional 15 minutes intraservice time Diagnosis Code(s): --- Professional --- K64.8, Other hemorrhoids Z86.010, Personal history of colonic polyps Z12.11, Encounter for screening for malignant neoplasm of colon CPT copyright 2020 [employer]. All rights r (more content not included)... Normal [facility] HISTORY PHYSICALon 3 HISTORY PHYSICAL HNO ID: [id number] Author: Thelma Fenton MD Service: General Surgery Author Type: Physician Type: HANDP Filed: 12/15/2022 10:59 AM Note Text: HISTORY AND PHYSICAL Ashley Tuttle 1955 REFERRING PHYSICIAN: Robert Fong MD CHIEF COMPLAINT: Colon Consult HPI: The patient is a 67 year old female referred for endoscopy. Ashley notes no colon complaints. The patient denies blood in stools, denies abdominal pain, and denies changes in bowel habits. The patient states that her father was diagnosed with colon cancer in his 50s. The patient has had previous colonoscopy in 2019, she states that she has had colon polyps in past. Patient has hypertension - taking lisinopril and metoprolol for this. Her BMI is 36. PAST MEDICAL HISTORY Diagnosis Date Diarrhea Hypertension Internal hemorrhoids without mention of complication PAST SURGICAL HISTORY Procedure Laterality Date CHOLECYSTECTOMY Cholecystectomy COLONOSCOPY FLX DX W/COLLJ SPEC WHEN PFRMD 09/05/2001 Colonoscopy COLONOSCOPY FLX DX W/COLLJ SPEC WHEN PFRMD 09/13/2006 Colonoscopy COLONOSCOPY FLX DX W/COLLJ SPEC WHEN PFRMD 02/20/13 Colonoscopy COLONOSCOPY FLX DX W/COLLJ SPEC WHEN PFRMD 10/23/2019 Colonoscopy PAST SURGICAL HISTORY OF 06/2008 vein stripping and laser right leg TONSILLECTOMY PRIMARY/SECONDARY Tonsillectomy Current Outpatient Medications Medication Sig metoprolol tartrate, short acting, (LOPRESSOR) 50 mg tablet Take 50 mg by mouth twice daily. Clobetasol Propionate (TEMOVATE) 0.05 % external solution once daily. fluticasone propionate (FLONASE NASAL) Use in the nose once daily. ivermectin/metronidazo le/niaci (IVERMECTIN-METRONIDAZ OL-NIACIN TOPICAL) Apply to affected area as needed. phytosterol/pantethine (CHOLESTOFF COMPLETE ORAL) Take by mouth once daily. meclizine (ANTIVERT) 25 mg tab Take 25 mg by mouth three times daily as needed (dizziness). lisinopril-hydrochloro thiazide 10-12.5 mg per tablet Take 1 tablet by mouth once daily. peg 3350-Electrolytes (GOLYTELY) 236-22.74-6.74 -5.86 gram suspension Take 4,000 mL by mouth one time only for 1 dose. Refer to printed prep instructions from your provider. metoprolol succinate XL, long acting, 25 mg 24 hr tablet Take 25 mg by mouth twice daily. (Patient not taking: Reported on 11/17/2022) ALLERGIES: Patient has no known allergies. PERSONAL HISTORY: Social History Tobacco Use Smoking status: Never Smokeless tobacco: Never Substance Use Topics Alcohol use: No Drug use: No FAMILY HISTORY Problem Relation Age of Onset Colon Cancer Mother The review of systems data was entered by the nurse and reviewed by ny Nursing Notes: Gila Allen 11/17/2022 2:51 PM Signed REVIEW OF SYSTEMS: General: The patient denies fatigue, denies weight loss, denies weight gain, denies feeling hot, and denies feelings of cold. Eyes: The patient denies glaucoma, denies eye injury/surgery, does not wear glasses or contacts. Ear/Nose/Throat: The patient denies allergies, denies hayfever, denies ear infections, and denies bloody noses. Cardiovascular: The patient denies chest pain, denies heart disease, NOTES high blood pressure,denies cardiac stent, denies prior heart attack, denies irregular heart beat, denies high cholesterol, denies poor circulation, denies heart failure, other cardiac issues, denies claudication, denies cold feet, denies peripheral arterial stent. Respiratory: The patient denies tuberculosis, denies pneumonia, denies frequent cough, denies pulmonary embolism, denies shortness of breath, and denies coughing up blood. Gastrointestinal: The patient denies difficulty swallowing, denies acid reflux, denies ulcers, denies vomiting, denies jaundice/hepatitis, denies gallbladder problems, denies black or tarry stools, denies hemorrhoids, denies bleeding from rectum, denies diverticulitis, denies constipation, denies diarrhea, denies loss of stool control, and denies hernias. Kidney/Bladder: The patient denies kidney stones, denies urine infections, and denies bloody urine. Skin: The patient NOTES a history of skin cancer, denies bleeding/changing moles, and denies a history of skin rash. Neurologic: The patient denies a history of epilepsy/convulsions, denies headaches, denies head/spinal injuries, and denies stroke/TIA. Psychiatric: The patient denies psychiatric medications, denies depression, and denies voices, denies substance abuse. Endocrine: The patient denies thyroid disorders, denies diabetes, and denies hormonal problems. Hematologic: The patient denies a history of bruising, denies bleeding, and denies anemia, denies blood clots. Infections: The patient NOTES a history of measles and mumps, denies rheumatic fever, and denies sexually transmitted diseases. Musculoskeletal: The patient denies back pain/injury, denies back problems, denies sciatica, denies knee/foot trouble, denies arth (more content not included)... Normal [facility] NURSING PROGon 12-15-2022 NURSING PROG HNO ID: [id number] Author: Geetha Messina RN Service: ? Author Type: Registered Nurse Type: Nursing Progress Note Filed: 12/15/2022 12:21 PM Note Text: Arrived in phase II via cart left lateral position, eyes open to verbal stimuli, skin warm and dry, alert to self and event. Abdomen soft and non distended, denies pain or nausea. Resting comfortably on left side. Normal [facility] CNOVon 11-17-2022 CNOV Office Visit (GENSWS ) ASHLEY TUTTLE ([id number]) 1955 F Date Time Provider Department 11/17/22 2:45 PM THELMA FENTON During your visit today, we recorded the following information about you: Temperature Pulse Blood pressure Weight 98.8 degrees 74/minute 152/94 95.3 kg Height 1.613 m Gila Allen 11/17/2022 2:51 PM Signed REVIEW OF SYSTEMS: General: The patient denies fatigue, denies weight loss, denies weight gain, denies feeling hot, and denies feelings of cold. Eyes: The patient denies glaucoma, denies eye injury/surgery, does not wear glasses or contacts. Ear/Nose/Throat: The patient denies allergies, denies hayfever, denies ear infections, and denies bloody noses. Cardiovascular: The patient denies chest pain, denies heart disease, NOTES high blood pressure,denies cardiac stent, denies prior heart attack, denies irregular heart beat, denies high cholesterol, denies poor circulation, denies heart failure, other cardiac issues, denies claudication, denies cold feet, denies peripheral arterial stent. Respiratory: The patient denies tuberculosis, denies pneumonia, denies frequent cough, denies pulmonary embolism, denies shortness of breath, and denies coughing up blood. Gastrointestinal: The patient denies difficulty swallowing, denies acid reflux, denies ulcers, denies vomiting, denies jaundice/hepatitis, denies gallbladder problems, denies black or tarry stools, denies hemorrhoids, denies bleeding from rectum, denies diverticulitis, denies constipation, denies diarrhea, denies loss of stool control, and denies hernias. Kidney/Bladder: The patient denies kidney stones, denies urine infections, and denies bloody urine. Skin: The patient NOTES a history of skin cancer, denies bleeding/changing moles, and denies a history of skin rash. Neurologic: The patient denies a history of epilepsy/convulsions, denies headaches, denies head/spinal injuries, and denies stroke/TIA. Psychiatric: The patient denies psychiatric medications, denies depression, and denies voices, denies substance abuse. Endocrine: The patient denies thyroid disorders, denies diabetes, and denies hormonal problems. Hematologic: The patient denies a history of bruising, denies bleeding, and denies anemia, denies blood clots. Infections: The patient NOTES a history of measles and mumps, denies rheumatic fever, and denies sexually transmitted diseases. Musculoskeletal: The patient denies back pain/injury, denies back problems, denies sciatica, denies knee/foot trouble, denies arthritis, or denies gout. When was patient's last Mammogram screening? 01/2022 Last Colonoscopy: 10/2019 Gila Fenton MD 11/17/2022 3:10 PM Signed Bowel Preparation Instructions for: Golytely, Nulytely, Trilyte or Colyte (polyethylene glycol 3350 and electrolytes) IF YOU DO NOT FOLLOW THESE DIRECTIONS, YOUR COLONOSCOPY WILL BE CANCELLED. Jacob Instructions: Your bowel must be empty so that your doctor can clearly view your colon. Follow all of the instructions in this handout EXACTLY as they are written. Do NOT eat any solid food the ENTIRE day before your colonoscopy. Drink only clear liquids. Buy your bowel preparation at least 5 days before your colonoscopy. TRANSPORTATION on the Day of Your Exam A responsible person MUST be present with you at Check In prior to your colonoscopy and REMAIN in the endoscopy area until you are discharged. You are NOT ALLOWED to drive, take a taxi or bus, or leave the Endoscopy Center ALONE. If you do not have a responsible car pick up driver (family member or friend) with you to take you home, your exam cannot be done with sedation and will be cancelled. Please bring a list of all of your current medications, including any Over-the Counter medications with you. Medications If you take insulin, diabetic medications or blood thinners such as Coumadin (warfarin), Plavix (clopidogrel), Ticlid (ticlopidine hydrochloride), Agrylin (anagrelide), Xarelto (Rivaroxaban), Pradaxa (Dabigatran), Eliquis (Apixaban), and Effient (Prasugrel). You MUST call the doctors who orders those medicines for instructions on altering the dosage before your colonoscopy. All other medications should be taken the day of the exam with a sip of water including ASPIRIN. Five (5) Days Before Your Colonoscopy Do NOT take medicines that stop diarrhea - such as Imodium, Kaopectate, or Pepto Bismol. Do NOT take fiber supplements - such as Metamucil, Citrucel, or Perdiem. Do NOT take products that contain iron - such as multi-vitamins (the label lists what is in the products). Do NOT take Vitamin E. Buy the prescription bowel preparation solution at your local pharmacy or [facility]. 10/2019 Bowel Preparation Instructions for: Golytely, Nulytely, Trilyte or Colyte (polyethylene glycol 3350 and electro (more content not included)... Normal [facility] Hemoglobin A1con 11-28-2021 Glucose [Mass/Vol] 105 mg/dL Normal [facility] Comment on above: Performed By: #### H BA1C #### [facility] Routine Lab [address] [place], [place] [address] HbA1c (Bld) [Mass fraction] 5.3 % Normal 4.3-5.6 [facility] Comment on above: Performed By: #### H BA1C #### [facility] Routine Lab [address] [place], [place] [address] Hemoglobin A1con 06-02-2021 Glucose [Mass/Vol] 105 mg/dL Normal [facility] Comment on above: Performed By: #### H BA1C #### [facility] Routine Lab [address] [place], [place] [address] HbA1c (Bld) [Mass fraction] 5.3 % Normal 4.3-5.6 [facility] Comment on above: Performed By: #### H BA1C #### [facility] Routine Lab [address] [place], [place] [address] Vital Signs Date Time Vital Sign Value Performing Clinician Facility 04-25-2025 13:00-0400 Body height 162.[address] Ld Mon MD Work Phone: [facility] 04-25-2025 13:00-0400 Body mass index (BMI) [Ratio] 35.9 kg/m2 Dr. Ld Mon MD Work Phone: [facility] 04-25-2025 13:00-0400 Body temperature 97.5 [degF] Dr. Ld Mon MD Work Phone: [facility] 04-25-2025 13:00-0400 Body weight 95.[address] Ld Mon MD Work Phone: [facility] 04-25-2025 13:00-0400 Diastolic blood pressure 82 mm[Hg] Dr. Ld Mon MD Work Phone: [facility] 04-25-2025 13:00-0400 Heart rate 72 /min Dr. Ld Mon MD Work Phone: [facility] 04-25-2025 13:00-0400 Respiratory rate 18 /min Dr. Ld Mon MD Work Phone: [facility] 04-25-2025 13:00-0400 SaO2% (BldA) [Mass fraction] 98 % Dr. Ld Mon MD Work Phone: [facility] 04-25-2025 13:00-0400 Systolic blood pressure 168 mm[Hg] Dr. Ld Mon MD Work Phone: [facility] 04-27-2023 12:54-0400 Body temperature 98.06 [degF] DR ESTEBAN ENGLAND MD [facility] 04-27-2023 12:54-0400 Diastolic Blood Pressure Non-Invasive [address] ESTEBAN ENGLAND MD [facility] 04-27-2023 12:54-0400 Heart rate 90 /min DR ESTEBAN ENGLAND MD [facility] 04-27-2023 12:54-0400 Mean blood pressure 80 mm[Hg] DR ESTEBAN ENGLAND MD [facility] 04-27-2023 12:54-0400 Reason For Taking VItal Signs DR ESTEBAN ENGLAND MD [facility] 04-27-2023 12:54-0400 Respiratory rate 24 /min DR ESTEBAN ENGLAND MD [facility] 04-27-2023 12:54-0400 Systolic Blood Pressure Non-Invasive [address] ESTEBAN ENGLAND MD [address] [place] [address] 04-27-2023 08:16-0400 Heart rate 94 /min DR ESTEBAN ENGLAND MD [address] [place] [address] 04-27-2023 08:10-0400 Respiratory rate 23 /min DR ESTEBAN ENGLAND MD [address] [place] [address] 04-27-2023 08:02-0400 Body temperature 97.7 [degF] DR ESTEBAN ENGLAND MD [address] [place] [address] 04-27-2023 08:02-0400 Diastolic Blood Pressure Non-Invasive [address] ESTEBAN ENGLAND MD [address] [place] [address] 04-27-2023 08:02-0400 Heart rate 95 /min DR ESTEBAN ENGLAND MD [address] [place] [address] 04-27-2023 08:02-0400 Mean blood pressure 102 mm[Hg] DR ESTEBAN ENGLAND MD [address] [place] [address] 04-27-2023 08:02-0400 Reason For Taking VItal Signs DR ESTEBAN ENGLAND MD [address] [place] [address] 04-27-2023 08:02-0400 Respiratory rate 18 /min DR ESTEBAN ENGLAND MD [address] [place] [address] 04-27-2023 08:02-0400 Systolic Blood Pressure Non-Invasive [address] ESTEBAN ENGLAND MD [address] [place] [address] 04-27-2023 04:20-0400 Body temperature 97.7 [degF] DR ESTEBAN ENGLAND MD [address] [place] [address] 04-27-2023 04:20-0400 Diastolic Blood Pressure Non-Invasive [address] ESTEBAN ENGLAND MD [address] [place] [address] 04-27-2023 04:20-0400 Heart rate 92 /min DR ESTEBAN ENGLAND MD [address] [place] [address] 04-27-2023 04:20-0400 Mean blood pressure 78 mm[Hg] DR ESTEBAN ENGLAND MD [address] [place] [address] 04-27-2023 04:20-0400 Reason For Taking VItal Signs DR ESTEBAN ENGLAND MD [address] [place] [address] 04-27-2023 04:20-0400 Systolic Blood Pressure Non-Invasive [address] ESTEBAN ENGLAND MD [address] [place] [address] 04-27-2023 01:35-0400 Heart rate 93 /min DR ESTEBAN ENGLAND MD [address] [place] [address] 04-26-2023 15:50-0400 Heart rate 93 /min DR ESTEBAN ENGLAND MD [address] [place] [address] 04-24-2023 11:50-0400 Body height [address] ESTEBAN ENGLAND MD [address] [place] [address] 04-24-2023 11:50-0400 Body weight [address] ESTEBAN ENGLAND MD [address] [place] [address] 04-24-2023 11:50-0400 Body weight 37.11 kg/m2 DR ESTEBAN ENGLAND MD [address] [place] [address] 04-24-2023 03:33-0400 Blood Pressure Cuff Size DR ESTEBAN ENGLAND MD [address] [place] [address] 04-24-2023 03:33-[address] ESTEBAN ENGLAND MD [address] [place] [address] 04-24-2023 03:33-[address] ESTEBAN ENGLAND MD [address] [place] [address] 04-23-2023 18:28-0400 Blood Pressure Cuff Size DR ESTEBAN ENGLAND MD [address] [place] [address] 04-23-2023 18:28-[address] ESTEBAN ENGLAND MD [address] [place] [address] 04-23-2023 18:28-[address] ESTEBAN ENGLAND MD [address] [place] [address] 04-23-2023 15:48-0400 Heart rate 100 /min DR ESTEBAN ENGLAND MD [address] [place] [address] 04-23-2023 14:46-0400 Blood Pressure Cuff Size DR ESTEBAN ENGLAND MD [address] [place] [address] 04-23-2023 14:46-[address] ESTEBAN ENGLAND MD [address] [place] [address] 04-23-2023 14:46-[address] ESTEBAN ENGLAND MD [address] [place] [address] 04-23-2023 07:16-0400 Heart rate 105 /min DR ESTEBAN ENGLAND MD [address] [place] [address] 04-23-2023 03:06-0400 Heart rate 101 /min DR ESTEBAN ENGLAND MD [address] 04-22-2023 17:46-0400 Body height [address] ESTEBAN ENGLAND MD [address] [place] [address] 04-22-2023 17:46-0400 Body weight [address] ESTEBAN ENGLAND MD [address] [place] [address] 04-22-2023 17:46-0400 Body weight 37.11 kg/m2 DR ESTEBAN ENGLAND MD [address] [place] [address] 11-17-2022 14:42-0500 Body height 161.3 cm Thelma Fenton MD Work Phone: [facility] 11-17-2022 14:42-0500 Body temperature 98.8 [degF] Thelma Fenton MD Work Phone: [facility] 11-17-2022 14:42-0500 Body weight 95.25 kg Thelma Fenton MD Work Phone: [facility] 11-17-2022 14:42-0500 Diastolic blood pressure 94 mm[Hg] Thelma Fenton MD Work Phone: [facility] 11-17-2022 14:42-0500 Heart rate 74 /min Thelma Fenton MD Work Phone: [facility] 11-17-2022 14:42-0500 SaO2% (BldA) [Mass fraction] 99 % Thelma Fenton MD Work Phone: [facility] 11-17-2022 14:42-0500 Systolic blood pressure 152 mm[Hg] Thelma Fenton MD Work Phone: [facility] Encounters Encounter Date Encounter Type Care Provider Facility Start: 05-21-2025 ambulatory Bud Suazo Facility: [facility] Start: 04-25-2025 End: 04-25-[address] Bud Suazo MD [facility] Work Phone: Start: 04-25-2025 End: 04-25-[address] Ld Mon MD Work Phone: [facility] Work Phone: Start: 04-22-2025 End: 04-22-2025 ambulatory LD DAWN KOKO [facility] Start: 03-29-2025 End: 03-29-2025 ambulatory LD DAWN [facility] Start: 03-27-2025 End: 03-27-2025 ambulatory LD DAWN KOKO [facility] Start: 02-20-2025 End: 02-20-2025 ambulatory LD DAWN KOKO [facility] Start: 02-07-2025 End: 02-07-2025 Emergency department patient visit ZEV HUGGINS [facility] Start: 10-08-2024 End: 10-08-2024 ambulatory DL DAWN [facility] Start: 06-22-2023 End: 06-22-2023 Patient encounter procedure NATHANIEL NOVAK MD [facility] Start: 05-20-2023 ambulatory NATHANIEL NOVAK MD Facili ty:A Start: 04-22-2023 End: 04-27-2023 Evaluation and management of inpatient CHELLE GAN MD Facility:A Start: 04-22-2023 End: 04-27-2023 Evaluation and management of inpatient DR ESTEBAN ENGLAND MD [facility] Start: 12-15-2022 End: 12-15-2022 ambulatory THELMA FENTON Facility:[facility] Start: 11-17-2022 End: 11-17-2022 ambulatory ROBERT FONG Facility:[facility] Start: 11-17-2022 End: 11-17-2022 Patient encounter procedure Thelma Fenton MD Work Phone: General Surgery Comment on above: History of colonic p olyps; Family history of colon cancer Procedures Date Procedure Procedure Detail Performing Clinician Start: 10-08-2024 Urinalysis YASSER OMR AN Comment on above: Result Comment: URIN ALYSIS Performed By: #### [id number] #### [facility],[address] [place] [address] Start: 10-23-2019 Colonoscopy Thelma Fenton MD Work Phone: Plan of Treatment Date Care Activity Detail Author Start: 07-14-2025 DIABETES SCREEN DIABETES SCREEN [facility] [place] Start: 11-07-2022 ADVANCE DIRECTIVE DISCUSSION ADVANCE DIRECTIVE DISCUSSION [facility] Start: 11-07-2022 DEPRESSION ASSESSMENT DEPRESSION ASS ESSMENT [facility] Start: 10-23-2022 Colonoscopy COLONOSCOPY [facility] Start: 10-23-2022 COLORECTAL CANCER SCREENING COLORECTAL CANCER SCREENING [facility] Start: 07-08-2022 Influenza vaccination INFLUENZA (#1) [facility] Start: 2019 BONE DENSITY BONE DENSITY [facility] Start: 2019 PNEUMOCOCCAL: 65+ (1 - PCV) PNEUMOCOCCAL: 65+ (1 - PCV) [facility] Start: 2004 SHINGRIX VACCINE (1 of 2) SHINGRIX VACCINE (1 of 2) [facility] Start: 1999 COLOGUARD (FIT-DNA) COLOGUARD (FIT-D NA) [facility] Start: [address] [facility] Start: 1999 FECAL OCCULT BLOOD FECAL OCCULT BLOO D [facility] Start: 1999 LIPID SCREEN LIPID SCREEN [facility] Start: 1999 SIGMOIDOSCOPY SIGMOIDOSCOPY [facility] Start: 1994 Mammography MAMMOGRAM [facility] Start: 1973 Urine microalbumin profile DTAP,TDAP,TD (1 - Tdap) [facility] Start: 1972 HEPATITIS C SCREENING HEPATITIS C SC REENING [facility] Start: 03-28-1955 COVID-19 VACCINE (#1) COVID-19 VACCI NE (#1) [facility] End: 11-17-2023 Screening colonoscopy COLONOSCOPY SCREENING Endoscopy Routine History of colonic polyps 1 Occurrences starting 11/17/2022 until 11/17/2023 [facility] Work Phone: Comment on above: 1 Occurrences starti ng [facility]17[facility]2022 [facility] Payers Date Payer Category Payer Self-pay 2021 Unknown MMO MMO MEDICARE SUPPLEMENT [id number] 2021-Present [phone] [address] [place] [address] Indemnity [id number] 2021 Unknown [id number] 2019 Medicare MEDICARE MEDICAR E A AND B [id number] 2019-Present [phone] [address] [address] [place] [address] Medicare [id number] 2019 Medicare [id number] 1955 Unknown [id number] 1955 Unknown [id number] 1954 Unknown [id number] 1955 Unknown [id number] 1954 Unknown [id number] 1954 Unknown [id number] 1954 Unknown [id number] 1954 Unknown [id number] Unknown TESHA [id number] Unknown [id number] Unknown [id number] Social History Date Type Detail Facility Start: 02-02-2013 End: 04-25-2025 Tobacco smoking status [facility] Never smoked tobacco [facility] Start: 02-02-2013 Tobacco use and exposure Smokeless tobacco non-user [facility] Start: 11-17-2022 Alcohol intake Current non-dr luna of alcohol (finding) [facility] Start: 1955 Sex Assigned At Not on file C [facility] Start: 1955 Sex Assigned At Female W [facility] Functional Status Date Assessment Result Facility 04-27-2023 Functional Status Room check performed [facility] 04-27-2023 Functional Status 1 [facility] 04-27-2023 Functional Status Done [facility] 04-27-2023 Functional Status [facility] 04-26-2023 Functional Status [facility] 04-26-2023 Functional Status [facility] 04-25-2023 Functional Status Single level home [facility] 04-25-2023 Functional Status Spouse is semi-retired. [facility] 04-25-2023 Functional Status Morning Snack Percent 7 5 [facility] 04-24-2023 Functional Status Maintained [facility] 04-24-2023 Functional Status [facility] 04-24-2023 Functional Status [facility] 04-23-2023 Functional Status [facility] 04-22-2023 Functional Status [facility] Mental Status Date Assessment Result Facility 04-27-2023 Mental Status Oriented x 4 [facility] 04-27-2023 Mental Status [facility] 04-27-2023 Mental Status [facility] Clinical Notes 11-17-2022 to 02-07-2025 Note Date & Type Note Facility 02-07-2025 Note Discharge Instructio ns Discharge Summary [place] [address] [facility] [place] [phone] 02/07/2025 Patient: ASHLEY TUTTLE Sex: Female : 1955 Age: 69y Thank you for visiting [facility]. You have been evaluated today by Zev Huggins D.O. for the following condition(s): Principal Diagnosis Acute dyspnea. Bronchopneumonia. thyroid nodule needs an ultrasound and probable biopsy. INSTRUCTIONS (patient has a large thyroid nodule which needs an ultrasound and probable biopsy). Warnings: GENERAL WARNINGS: Return or contact your physician immediately if your condition worsens or changes unexpectedly, if not improving as expected, or if other problems arise. Prescription Medications: prednisone 20 mg tablet: Take 1 tablet by mouth once a day for 5 days, dispense 5 tablet. Refills 0. Pharmacy: [facility]/pharmacy #[id number] - [address], [place] [phone]. albuterol sulfate HFA 90 mcg/actuation aerosol inhaler: Inhale 2 puff using inhaler every six to eight hours as needed for 10 days, dispense 18 gram. Refills 0. Pharmacy: [facility]/pharmacy #[id number] - [address], [place] [phone]. 1 of 15 Discharge Instructions Zithromax Z-Codey tablet (azithromycin) 250: Take 2 tablet by mouth once a day for 5 days, dispense 6 tablet. Refills 0. Pharmacy: [facility]/pharmacy #[id number] - [address], [place] [phone]. Follow-up with: Ld Mon MD, [facility], Internal Medicine, Phone: [phone], [address] [facility], [place] [address]. Follow up in four. (return if problems or concerns any shortness of breath.). You have been given the following additional information: Pneumonia (Adult) PREDNISONE - ORAL ALBUTEROL (SALBUTAMOL) HFA INHALER - ORAL INHALATION Patient Signature Facility [employer] Date/Time General Instructions with [employer] [address] [place] [phone] 02/07/2025 Patient: ASHLEY TUTTLE Sex: Female : 1955 Age: 69y Thank you for visiting [facility]. You have been evaluated today by Zev Huggins D.O. for the following condition(s): Principal Diagnosis Acute dyspnea. Bronchopneumonia. thyroid nodule needs an ultrasound and probable biopsy. 2 of 15 Discharge Instructions INSTRUCTIONS (patient has a large thyroid nodule which needs an ultrasound and probable biopsy). Warnings: GENERAL WARNINGS: Return or contact your physician immediately if your condition worsens or changes unexpectedly, if not improving as expected, or if other problems arise. Prescription Medications: prednisone 20 mg tablet: Take 1 tablet by mouth once a day for 5 days, dispense 5 tablet. Refills 0. Pharmacy: [facility]/pharmacy #[id number] - [address], [place] [phone]. albuterol sulfate HFA 90 mcg/actuation aerosol inhaler: Inhale 2 puff using inhaler every six to eight hours as needed for 10 days, dispense 18 gram. Refills 0. Pharmacy: [facility]/pharmacy #[id number] - [address], [place] [phone]. Zithromax Z-Codey tablet (azithromycin) 250: Take 2 tablet by mouth once a day for 5 days, dispense 6 tablet. Refills 0. Pharmacy: [facility]/pharmacy #[id number] - [address], [place] [phone]. Follow-up with: Ld Mon MD, [facility], Phone: [phone], [address] [place], [place] [phone]. Follow up in four. (return if problems or concerns any shortness of breath.). ADDITIONAL INFORMATION Pneumonia (Adult) Pneumonia is an infection deep in the lungs. It is in the small air sacs (alveoli). It may be caused by a virus, fungus, or bacteria. Pneumonia caused by bacteria is often treated with an antibiotic. Severe cases may need to be treated in the hospital. Milder cases can be treated at home. Pneumonia symptoms are a lot like flu symptoms. They include fever, cough (dry or with phlegm), headache, muscle weakness, and pain. These symptoms often get worse in the first 2 days. But they often start to get better in the first week of treatment. 3 of 15 Discharge Instructions Home care Follow these guidelines when caring for yourself at home: Get plenty of rest. Don't let yourself get overly tired when you go back to your activities. Participate in activities as directed by your healthcare provider. Stop smoking. This is the most important step you can take to help treat pneumonia. If you need help stopping smoking, talk with your healthcare provider. Stay away from smoke and other irritants. Stay away from secondhand smoke. Don't let anyone smoke in your home. Prevent lung infections. Ask your healthcare provider about t (more content not included)... [facility] 06-22-2023 Note Exam Date Time Procedure Performing Provider Status 06/22/23 2:52 PM Echocardiogram, Adult - CV Auth (Verified) [facility] 06-21-2023 Discharge summary Date of Service 04/27/23 Discharge Diagnosis Extensive right pulmonary artery embolus, bilateral PE with acute hypoxia: Elevated troponin: Most likely secondary to PE. Elevated BNP T: No signs of volume overload Hypokalemia: replaced. Hypertension: bp in control. Hospital Course 67-year-old female who had a past medical history of hypertension who came to the ER complaining ofworsening shortness of breath. The patient was recently in [facility] and traveled by car for too long days without. According to her, after arrival she started complaining of pain and swelling in the lower extremities, 3 days ago the patient started experiencing shortness of breath which was getting worse specially for the last 2 days, the patient said that her shortness of breath was worse on minimal activities and even at rest, she also mentioned of chest pain. CT scan showed Extensive right pulmonary artery embolus, bilateral PE, Doppler showed The cavity size is increased. Systolic function is reduced. Systolic pressure is severely increased. The RV systolic pressure by Doppler is 69 mm Hg. She was started on weight based heparin, unfortunately, she continue to have CP and SOBeven at rest. so vascular surgery is consulted, she underwent EKOS catheter and initiation of pharmacomechanical thrombolysis, SOB improved significantly. She was started on Eliquis and weight based heparin was DCed. She is doing well today, SOB further improved. she is to be discharged home in stable improved condition. Allergies NKA Consults Consult to Physician - Ordered -- 04/22/23 19:48:00 EDT, THOR REYES MD, Routine, hypoxia, extensive right PE Consult to Physician - Ordered -- 04/24/23 8:41:00 EDT, PRO ALDANA MD, Routine, extensive R PE, right heart strain, DVT,? EKOS Objective Vitals and Measurements T: 36.7 C (Oral) TMIN: 36.4 C (Oral) TMAX: 36.7 C (Oral) HR: 90(Apical) RR: 24 BP: 125/63 SpO2: 95% Weight Current Weight Dosing Weight: 95 kg (04/24/23) Current Weight: 95 kg (04/22/23) Dosing Weight: 95 kg (04/22/23) Gen: Appears in no respiratory distress. HEENT: No pallor, no icterus, neck supple. Lungs: Diminished breath sounds. no wheezing or crackles [facility]: S1-S2 notes, regular rate and rhythm, no murmur noted Abd: Nontender, bowel sounds noted, no organomegaly Ext: Pulses symmetric, no edema Skin: No rash, no nodules Neuro: Alert, no focal deficits Code Status No qualifying data available. Admission Date 04/22/23 Discharge Date Medications New Prescription apixaban (Eliquis 5 mg oral tablet)2 tab(s) by mouth two (2) times a day for 6 Days. Refills: 0. apixaban (Eliquis 5 mg oral tablet)1 tab(s) by mouth two (2) times a day. Refills: 5. Unchanged clobetasol topical (clobetasol 0.05% topical foam)1 application Topical once a day. fluticasone nasal (Flonase 50 mcg/inh nasal spray)1 spray(s) each nostril once a day. herbal/nutritional product (CholestOff oral caplet)by mouth once a day. hydrochlorothiazide-lisinopril (hydrochlorothiazide-lisinopril 12.5 mg-10 mg oral tablet)1 tab(s) by mouth every day. ivermectin topical (ivermectin 1% topical cream)1 application Topical once a day. meclizine (meclizine 25 mg oral tablet)1 tab(s) by mouth four (4) times a day as needed as needed for dizziness. metoprolol (metoprolol tartrate 50 mg oral tablet)1 tab(s) by mouth two (2) times a day. multivitamin (Multiple Vitamins oral capsule)1 cap by mouth every day. TNF-Med Follow Up Follow Up with LD MON MD, Infectious Disease, Infectious Disease Group When Within 5 to 7 days Where: [address] [place] [address] [address] [facility] [address]- [phone] Follow Up Appointments No qualifying data available. Follow Up Labs/Studies Discharge Labs No Follow-up Labs Discharge Studies No Follow-up Studies Discharge Diet Discharge Diet - Ordered -- Type of Diet: Regular Diet, No changes were made to your diet during your hospital stay. Please resume your pre hospitalization diet on discharge., 04/27/23 14:09:00 EDT Discharge Activity Discharge Activity - Ordered -- NO activity restrictions, 04/27/23 14:09:00 EDT Condition on Discharge Stable Readmission Risk/Palliative Score No qualifying data available. Discharge Disposition Home Time Spent 33 minutes Digitally Signed by DAISHA WOODWARD MD on 04/27/2023 07:22 PM [id number] Discharge instructions Patient Education 04/27/2023 14:55:58 Pulmonary Embolism Pulmonary Embolism A pulmonary embolism (PE) is a sudden blockage or decrease of blood flow in one or both lungs. Mostblockages come from a blood clot that forms in the vein of a lower leg, thigh, or arm (deep vein thrombosis, DVT) and travels to the lungs. A clot is blood that has thickened into a gel or solid. PE is a dangerous and life-threatening condition that needs to be treated right away. What are the causes? This condition is usually caused by a blood clot that forms in a vein and moves to the lungs. In rare cases, it may be caused by air, fat, part of a tumor, or other tissue that moves through the veins and into the lungs. What increases the risk? The following factors may make you more likely to develop this condition: Experiencing a traumatic injury, such as breaking a hip or leg. Having: ?A spinal cord injury. ?Orthopedic surgery, especially hip or knee replacement. ?Any major surgery. ?A stroke. ?DVT. ?Blood clots or blood clotting disease. ?Long-term (chronic) lung or heart disease. ?Cancer treated with chemotherapy. ?A central venous catheter. Taking medicines that contain estrogen. These include control pills and hormone replacement therapy. Being: ?. ?In the period of time after your baby is delivered (). ?Older than age 60. ?Overweight. ?A smoker, especially if you have other risks. What are the signs or symptoms? Symptoms of this condition usually start suddenly and include: Shortness of breath during activity or at rest. Coughing, coughing up blood, or coughing up blood-tinged mucus. Chest pain that is often worse with deep breaths. Rapid or irregular heartbeat. Feeling light-headed or dizzy. Fainting. Feeling anxious. Fever. Sweating. Pain and swelling in a leg. This is a symptom of DVT, which can lead to PE. How is this diagnosed? This condition may be diagnosed based on: Your medical history. A physical exam. Blood tests. CT pulmonary angiogram. This test checks blood flow in and around your lungs. Ventilation-perfusion scan, also called a lung VQ scan. This test measures air flow and blood flow to the lungs. An ultrasound of the legs. How is this treated? Treatment for this condition depends on many factors, such as the cause of your PE, your risk for bleeding or developing more clots, and other medical conditions you have. Treatment aims to remove, dissolve, or stop blood clots from forming or growing larger. Treatment may include: Medicines, such as: ?Blood thinning medicines (anticoagulants) to stop clots from forming. ?Medicines that dissolve clots (thrombolytics). Procedures, such as: ?Using a flexible tube to remove a blood clot (embolectomy) or to deliver medicine to destroy it (catheter-directed thrombolysis). ?Inserting a filter into a large vein that carries blood to the heart (inferior vena cava). This filter (vena cava filter) catches blood clots before they reach the lungs. ?Surgery to remove the clot (surgical embolectomy). This is rare. You may need a combination of immediate, long-term (up to 3 months after diagnosis), and extended (more than 3 months after diagnosis) treatments. Your treatment may continue for several months (maintenance therapy). You and your health care provider will work together to choose the treatment program that is best for you. Follow these instructions at home: Medicines Take dluk-wjb-pboscul and prescription medicines only as told by your health care provider. If you are taking an anticoagulant medicine: ?Take the medicine every day at the same time each day. ?Understand what foods and drugs interact with your medicine. ?Understand the side effects of this medicine, including excessive bruising or bleeding. Ask your health care provider or pharmacist about other side effects. General instructions Wear a medical alert bracelet or carry a medical alert card that says you have had a PE and lists what medicines you take. Ask your health care provider when you may return to your normal activities. Avoid sitting or lyingfor a long time without moving. Maintain a healthy weight. Ask your health care provider what weight is healthy for you. Do not use any products that contain nicotine or tobacco, such as cigarettes, e- cigarettes, and chewing tobacco. If you need help quitting, ask your health care provider. Talk with your health care provider about any travel plans. It is important to make sure that you are still able to take your medicine while on trips. Keep all follow-up visits as told by your health care provider. This is important. Contact a health care provider if: You missed a dose of your blood thinner medicine. Get help right away if: You have: ?New or increased pain, swelling, warmth, or redness in an arm or leg. ?Numbness or tingling in an arm or leg. ?Shortness of breath during activity or at rest. ?A fever. ?Chest pain. ?A rapid or irregular heartbeat. ?A severe headache. ?Vision changes. ?A serious fall or accident, or you hit your head. ?Stomach (abdominal) pain. ?Blood in your vomit, stool, or urine. ?A cut that will not stop bleeding. You cough up blood. You feel light-headed or dizzy. You cannot move your arms or legs. You are confused or have memory loss. These symptoms may represent a serious problem that is an emergency. Do not wait to see if the symptoms will go away. Get medical help right away. Call your local emergency services (811 in the [place] Do not drive yourself to the hospital. Summary A pulmonary embolism (PE) is a sudden blockage or decrease of blood flow in one or both lungs. PE is a dangerous and life-threatening condition that needs to be treated right away. Treatments for this condition usually include medicines to thin your blood (anticoagulants) or medicines to break apart blood clots (thrombolytics). If you are given blood thinners, it is important to take the medicine every day at the same time each day. Understand what foods and drugs interact with any medicines that you are taking. If you have signs of PE or DVT, call your local emergency services (169 in the [place] This information is not intended to replace advice given to you by your health care provider. Make sure you discuss any questions you have with your health care provider. Document Released: 10/21/2001 Document Revised: 08/01/2019 Document Reviewed: 08/01/2019 [employer] Patient Education 2020 [employer] Follow Up Care 04/22/2023 17:37:00 With:LD MON MD, Infectious Disease, Infectious Disease Group Address: [address] [place] [address] [address] [facility]/[place] [address]- [phone] When:5 to 7 days [facility] 06-21-2023 Note Discharge Instructions Thank you for allowing [facility] to assist you with your healthcare needs. The following is importantdischarge information regarding your hospital visit. Your Care Team LD MON MD What to do next Follow Up Appointments Follow Up with LD MON MD, Infectious Disease, Infectious Disease Group When Within 5 to 7 days Where: [address] [facility] [address] [facility] [address]- [phone] The Following Activity and Diet Have Been Ordered for You Discharge Activity - Ordered -- NO activity restrictions, 04/27/23 14:09:00 EDT Discharge Diet - Ordered -- Type of Diet: Regular Diet, No changes were made to your diet during your hospital stay. Please resume your pre hospitalization diet on discharge., 04/27/23 14:09:00 EDT Someone Will Contact You Regarding These Home Health Referrals No home referrals have been ordered for you. No one will call you. Allergies NKA Medications Please ask your primary doctor or pharmacist before taking any other medication not listed, including over the counter drugs, herbal medications, vitamins and or supplements as they may interact withyour home medications. What How Much When Instructions Last Dose New apixaban (Eliquis 5 mg oral tablet) 2 tab(s) by mouth Two (2) times a day Duration: 6 Days Printed Prescription New apixaban (Eliquis 5 mg oral tablet) 1 tab(s) by mouth Two (2) times a day Refills: 5 Printed Prescription Unchanged clobetasol topical (clobetasol 0.05% topical foam) 1 application Topical Once a day Unchanged fluticasone nasal (Flonase 50 mcg/ inh nasal spray) 1 spray(s) each nostril Once a day Unchanged herbal/ nutritional product (CholestOff oral caplet) by mouth Once a day Unchanged hydrochlorothiazide-lisinopril (hydrochlorothiazide-lisinopril 12.5 mg-10 mg oral tablet) 1 tab(s) by mouth Every day Unchanged ivermectin topical (ivermectin 1% topical cream) 1 application Topical Once a day Unchanged meclizine (meclizine 25 mg oral tablet) 1 tab(s) by mouth Four (4) times a day as needed for as needed for dizziness Unchanged metoprolol (metoprolol tartrate 50 mg oral tablet) 1 tab(s) by mouth Two (2) times a day Unchanged multivitamin (Multiple Vitamins oral capsule) 1 cap by mouth Every day Unchanged TNF-Med Please take this list to your next doctor s visit. Bring all medications you take, including over the counter medications, herbals and other supplements with you to your doctor s visit. Patients and families are reminded to discard old lists and to update any records with all medication providers or retail pharmacies. Medication Leaflets apixaban (a PIX a ban) Roby What is the most important information I should know about apixaban? Apixaban increases your risk of severe or fatal bleeding, especially if you take certain medicines at the same time (including some zvkc-vre-pwqzbtb medicines). Tell your doctor about all medicines you have recently used. Call your doctor at once if you have signs of bleeding such as: easy bruising, unusual bleeding, unexpected pain or swelling, feeling very weak or dizzy, bleeding gums, nosebleeds, heavy menstrual bleeding, blood in your urine or stools, coughing up blood or vomit that looks like coffee grounds, orany bleeding that will not stop. Apixaban can cause a very serious blood clot around your spinal cord that can lead to long-term or permanent paralysis. This type of blood clot can occur during a spinal tap or spinal anesthesia (epidural), especially if you have a genetic spinal defect, if you use a spinal catheter, if you've had spinal surgery or repeated spinal taps, or if you use other drugs that can affect blood clotting. Get emergency medical help if you have symptoms of a spinal cord blood clot such as tingling, numbness, or muscle weakness especially in your legs and feet. Do not stop taking apixaban unless your doctor tells you to. Stopping suddenly can increase your risk of blood clot or stroke. What is apixaban? Apixaban is used to lower the risk of stroke caused by a blood clot in people with a heart rhythm disorder called atrial fibrillation. Apixaban is also used after hip or knee replacement surgery to prevent a type of blood clot called deep vein thrombosis (DVT), which can lead to blood clots in the lungs (pulmonary embolism). Apixaban is also used to treat DVT or pulmonary embolism (PE), and to lower your risk of having a repeat DVT or PE. Apixaban may also be used for purposes not listed in this medication guide. What should I discuss with my healthcare provider before taking apixaban? You should not take apixaban if you are allergic to it, or if you have active bleeding from a surgery, injury, or other cause. Apixaban may cause you to bleed more easily, especially if you have a bleeding disorder that is inherited or caused by disease. Tell your doctor if you have an artificial heart valve, or if you have ever had: bleeding problems; antiphospholipid syndrome, especially if you have a triple positive antibody test; or liver or kidney disease. Apixaban can cause a very serious blood clot around your spinal cord if you undergo a spinal tap orreceive spinal anesthesia (epidural). This type of blood clot could cause long-term paralysis, and may be more likely to occur if: you have a spinal catheter in place or if a catheter has been recently removed; you have a history of spinal surgery or repeated spinal taps; you have recently had a spinal tap or epidural anesthesia; you take aspirin or other NSAIDs (nonsteroidal anti-inflammatory drugs)--ibuprofen (Advil, Motrin),naproxen (Aleve), diclofenac, indomethacin, meloxicam, and others; or you are using other medicines to treat or prevent blood clots. Taking apixaban may increase the risk of bleeding while you are or during your delivery. Tell your doctor if you are or plan to become . Do not breastfeed. How should I take apixaban? Follow all directions on your prescription label and read all medication guides or instruction sheets. Your doctor may occasionally change your dose. Use the medicine exactly as directed. You may take apixaban with or without food. If you cannot swallow a tablet whole, crush it and mix with water, apple juice, or applesauce. Swallow the mixture right away without chewing. A crushed tablet mixture may also be given through a nasogastric (NG) feeding tube. Read and carefully follow any Instructions for Use provided with your medicine. Apixaban can make it easier for you to bleed, even from a minor injury. Seek medical attention if you have bleeding that will not stop. Tell your doctor if you have a planned surgery or dental work. You may need to stop taking apixabanfor a short time. Do not stop taking apixaban unless your doctor tells you to. If you stop taking apixaban for any reason, your doctor may prescribe another medicine to prevent blood clots. Store at room temperature away from moisture and heat. What happens if I miss a dose? Take the missed dose on the same day you remember it. Take your next dose at the regular time and stay on your twice-daily schedule. Do not take two doses at one time. Get your prescription refilled before you run out of medicine completely. What happens if I overdose? Seek emergency medical attention or call the Poison Help line at . What should I avoid while taking apixaban? Avoid activities that may increase your risk of bleeding or injury. Use extra care while shaving orbrushing your teeth. What are the possible side effects of apixaban? Get emergency medical help if you have signs of an allergic reaction: hives; chest pain, wheezing, difficult breathing; feeling light-headed; swelling of your face, lips, tongue, or throat. Also seek emergency medical attention if you have symptoms of a spinal blood clot such as tingling,numbness, or muscle weakness especially in your legs and feet. Call your doctor at once if you have: easy bruising, unusual bleeding (nose, mouth, vagina, or rectum), bleeding from wounds or needle injections, any bleeding that will not stop; heavy menstrual bleeding; headache, dizziness, weakness, feeling like you might pass out; urine that looks red, pink, or brown; or black or bloody stools, coughing up blood or vomit that looks like coffee grounds. This is not a complete list of side effects and others may occur. Call your doctor for medical advice about side effects. You may report side effects to FDA at 6-166-CVB-0311. What other drugs will affect apixaban? Sometimes it is not safe to use certain medications at the same time. Some drugs can affect your blood levels of other drugs you take, which may increase side effects or make the medications less effective. Many other drugs (including some gton-ezp-qbfhjyn medicines) can increase your risk of bleeding or blood clots. 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 This list is not complete and many other drugs may affect apixaban. This includes prescription and zjzr-hgx-tozhxjc medicines, vitamins, and herbal products. Not all possible drug interactions are listed here. Where can I get more information? Your pharmacist can provide more information about apixaban. Remember, keep this and all other medicines out of the reach of children, never share your medicines with others, and use this medication only for the indication prescribed. Every effort has been made to ensure that the information provided by [employer]. ('[employer]') is accurate, up-to-date, and complete, but no guarantee is made to that effect. Drug information contained herein may be time sensitive. [employer] information has been compiled for use by healthcare practitioners and consumers in the [place] and therefore [employer] does not warrant that uses outside of the [place] are appropriate, unless specifically indicated otherwise. [employer] drug information does not endorse drugs, diagnose patients or recommend therapy. [employer] drug information isan informational resource designed to assist licensed healthcare practitioners in caring for their p atients and/or to serve consumers viewing this service as a supplement to, and not a substitute for, the expertise, skill, knowledge and judgment of healthcare practitioners. The absence of a warningfor a given drug or drug combination in no way should be construed to indicate that the drug or drug combination is safe, effective or appropriate for any given patient. [employer] does not assume any responsibility for any aspect of healthcare administered with the aid of information [employer] provides. The information contained herein is not intended to cover all possible uses, directions, precautions, warnings, drug interactions, allergic reactions, or adverse effects. If you have questions about the drugs you are taking, check with your doctor, nurse or pharmacist. Copyright 8598-3062 [employer]. Version: 6.01. Revision Date: 06/30/2021. Education Materials Pulmonary Embolism A pulmonary embolism (PE) is a sudden blockage or decrease of blood flow in one or both lungs. Mostblockages come from a blood clot that forms in the vein of a lower leg, thigh, or arm (deep vein thrombosis, DVT) and travels to the lungs. A clot is blood that has thickened into a gel or solid. PE is a dangerous and life-threatening condition that needs to be treated right away. What are the causes? This condition is usually caused by a blood clot that forms in a vein and moves to the lungs. In rare cases, it may be caused by air, fat, part of a tumor, or other tissue that moves through the veins and into the lungs. What increases the risk? The following factors may make you more likely to develop this condition: Experiencing a traumatic injury, such as breaking a hip or leg. Having: ? A spinal cord injury. ? Orthopedic surgery, especially hip or knee replacement. ? Any major surgery. ? A stroke. ? DVT. ? Blood clots or blood clotting disease. ? Long-term (chronic) lung or heart disease. ? Cancer treated with chemotherapy. ? A central venous catheter. Taking medicines that contain estrogen. These include control pills and hormone replacement therapy. Being: ? . ? In the period of time after your baby is delivered (). ? Older than age 60. ? Overweight. ? A smoker, especially if you have other risks. What are the signs or symptoms? Symptoms of this condition usually start suddenly and include: Shortness of breath during activity or at rest. Coughing, coughing up blood, or coughing up blood-tinged mucus. Chest pain that is often worse with deep breaths. Rapid or irregular heartbeat. Feeling light-headed or dizzy. Fainting. Feeling anxious. Fever. Sweating. Pain and swelling in a leg. This is a symptom of DVT, which can lead to PE. How is this diagnosed? This condition may be diagnosed based on: Your medical history. A physical exam. Blood tests. CT pulmonary angiogram. This test checks blood flow in and around your lungs. Ventilation-perfusion scan, also called a lung VQ scan. This test measures air flow and blood flow to the lungs. An ultrasound of the legs. How is this treated? Treatment for this condition depends on many factors, such as the cause of your PE, your risk for bleeding or developing more clots, and other medical conditions you have. Treatment aims to remove, dissolve, or stop blood clots from forming or growing larger. Treatment may include: Medicines, such as: ? Blood thinning medicines (anticoagulants) to stop clots from forming. ? Medicines that dissolve clots (thrombolytics). Procedures, such as: ? Using a flexible tube to remove a blood clot (embolectomy) or to deliver medicine to destroy it (catheter-directed thrombolysis). ? Inserting a filter into a large vein that carries blood to the heart (inferior vena cava). This filter (vena cava filter) catches blood clots before they reach the lungs. ? Surgery to remove the clot (surgical embolectomy). This is rare. You may need a combination of immediate, long-term (up to 3 months after diagnosis), and extended (more than 3 months after diagnosis) treatments. Your treatment may continue for several months (maintenance therapy). You and your health care provider will work together to choose the treatment program that is best for you. Follow these instructions at home: Medicines Take zprj-mlp-zssqvdf and prescription medicines only as told by your health care provider. If you are taking an anticoagulant medicine: ? Take the medicine every day at the same time each day. ? Understand what foods and drugs interact with your medicine. ? Understand the side effects of this medicine, including excessive bruising or bleeding. Ask your health care provider or pharmacist about other side effects. General instructions Wear a medical alert bracelet or carry a medical alert card that says you have had a PE and lists what medicines you take. Ask your health care provider when you may return to your normal activities. Avoid sitting or lyingfor a long time without moving. Maintain a healthy weight. Ask your health care provider what weight is healthy for you. Do not use any products that contain nicotine or tobacco, such as cigarettes, e- cigarettes, and chewing tobacco. If you need help quitting, ask your health care provider. Talk with your health care provider about any travel plans. It is important to make sure that you are still able to take your medicine while on trips. Keep all follow-up visits as told by your health care provider. This is important. Contact a health care provider if: You missed a dose of your blood thinner medicine. Get help right away if: You have: ? New or increased pain, swelling, warmth, or redness in an arm or leg. ? Numbness or tingling in an arm or leg. ? Shortness of breath during activity or at rest. ? A fever. ? Chest pain. ? A rapid or irregular heartbeat. ? A severe headache. ? Vision changes. ? A serious fall or accident, or you hit your head. ? Stomach (abdominal) pain. ? Blood in your vomit, stool, or urine. ? A cut that will not stop bleeding. You cough up blood. You feel light-headed or dizzy. You cannot move your arms or legs. You are confused or have memory loss. These symptoms may represent a serious problem that is an emergency. Do not wait to see if the symptoms will go away. Get medical help right away. Call your local emergency services (911 in the [place] Do not drive yourself to the hospital. Summary A pulmonary embolism (PE) is a sudden blockage or decrease of blood flow in one or both lungs. PE is a dangerous and life-threatening condition that needs to be treated right away. Treatments for this condition usually include medicines to thin your blood (anticoagulants) or medicines to break apart blood clots (thrombolytics). If you are given blood thinners, it is important to take the medicine every day at the same time each day. Understand what foods and drugs interact with any medicines that you are taking. If you have signs of PE or DVT, call your local emergency services (911 in the [place] This information is not intended to replace advice given to you by your health care provider. Make sure you discuss any questions you have with your health care provider. Document Released: 10/21/2001 Document Revised: 08/01/2019 Document Reviewed: 08/01/2019 [employer] Patient Education 2020 [employer]. Additional Information VACCINATE! IT SAVES LIVES! Members of the community who have not yet received the COVID-19 vaccine and would like to receive it can visit one of [facility] vaccine clinics. There are many vaccine clinic locations within the [facility]. For locations and available times, please visit [email or web address].[place].gov/. It is important to note that some COVID mobile vaccine clinics are held outdoors and may be canceled in rainy or stormy conditions. To learn more about pediatric vaccinations (ages 5-11), we invite you to visit the [facility] webpage. [email or web address] learn more about the COVID-19 vaccine, we invite you to visit the CDC website for a list of frequently asked questions.https://www.cdc.gov/coronavirus/2019-ncov/vaccines/faq.html [place] [facility] Patient Portal Access Instructions: Stay connected with your healthcare team and access your personal medical information anytime with the [facility] Patient Portal. Please follow the directions below to create your [facility] account: 1.Access the email account you provided upon registration to the hospital/physician office.2.Look for an invitation email from [facility].3.Open the email and access the invitation link: AcceptInvitation to [place] [facility].4.Fill in the required antonio to create your account. To access your account, visit [email or web address]. Click the blue button labeled Access Patient Portal and then log in with the username and password that you created in the steps above. You will be able to view your test results, lab results, a summary of your visits, upcoming appointments and more. There is also a convenient messaging option where you can send secure messages to your p rovider. In addition, you will have the ability to download any documents or summaries to your computer and/or send the information securely to a physician. Remember that your healthcare information is confidential, so carefully consider who you will allowto register on the [place] [facility] Patient Portal for access to your information. You can also access the [place] [facility] Patient Portal on the [place] [facility] karime. Simply click on Patient Portal and then log into your account. If you would like to receive a full copy of your medical records, please contact the [facility] Medical Records Department by calling [phone], Tuesday through Tuesday between 8 a.m. and 4:30 p.m. HOW TO SAFELY DISPOSE OF PRESCRIPTION MEDICATIONS Please use one of the following methods to safely dispose of your unused medications. 1.Use a drug disposal kit: the drug disposal pouch allows you to safely discard your old and unuseddrugs. Ask your nurse to give you one when you are discharged.2.Visit a local take-back location: Many local pharmacies and police departments have programs that collect old and unwanted prescriptiondrugs. Call your local pharmacy or go to http://bit.ly/2S4Nk1u to find one close to you.3.Make use of household items: Use cat litter or old coffee grounds to dispose medications if other options arenot available. Mix your drugs with these household products, seal them in an airtight container andthrow it into the garbage. Call [facility]: [phone] to be sure your drugs can be disposed of in this way. Some medicines may require a different approach.4.Never flush your medications down the toilet. IF YOU HAVE BEEN PRESCRIBED AN OPIOID FOR PAIN If you have been prescribed an opioid (such as hydrocodone, oxycodone or morphine), it is critical to understand the possible side effects and risks of opioid pain medications. Even when taken as directed, opioids can have several side effects including: Tolerance, meaning you might need to take more of a medication for the same pain relief. Nausea, vomiting and/or constipation. Sleepiness, dizziness, dry mouth, confusion, depression or itching. Physical dependence, meaning you have withdrawal symptoms when a medication is stopped, can develop within a few days. KNOW YOUR RESPONSIBILITIES It is important to know exactly how much and how often to take the opioid pain medications you are prescribed. Never take opioids in higher amounts or more often than prescribed. Do not combine opioids with alcohol or other drugs that cause drowsiness, such as benzodiazepines, also known as benzos, including diazepam and alprazolam, muscle relaxants or sleep aids. Never sell or share prescription opioids. This is illegal. Store opioids in a secure place and out of reach of others (including children, family, friends and visitors). The last page of this document has been signed and retained as a CHART COPY. Signatures Patient Education Materials Pulmonary Embolism Medication Leaflets apixaban My discharge plan and instructions have been reviewed and explained to me and ILEANDRO JOSEPHINE understand my current condition and have read and understand these discharge instructions. I have received a written copy of the plan/instructions. If I have questions, I am aware that I should contact my doctor. Patient/[employer] Line Signature: Date/Time: Relationship to Patient: Witness Name/Signature: Date/Time: [id number] Note Date of Service 04/26/23 Chief Complaint Severe SOB Subjective Patient was seen and examined, SOB improved, had EKOS catheter and initiation of pharmacomechanicalthrombolysis. Heparin DCed, started eliquis today Objective Vitals and Measurements T: 36.6 C (Oral) TMIN: 36.4 C (Oral) TMAX: 37 C (Oral) HR: 97(Monitored) RR: 20 BP: 112/69 SpO2: 84% Intake and Output 7AM Yesterday to 7AM Today Intake and Output (Last 24 hours) Intake Administration Information 98.80 Oral Intake 460.00 Output Urine Voided 0.00 Urine Count 2.00 Total Summary Total Intake 558.80 Total Output 0.00 Fluid Balance 558.80 Physical Exam Gen: Appears in respiratory distress. HEENT: No pallor, no icterus, neck supple. Lungs: CTA, good air entry, diminished breath sounds. CVS: S1-S2 regular rate and rhythm, no murmur noted Abd: Nontender, bowel sounds noted, no organomegaly Ext: Pulses symmetric, no edema Skin: No rash, no nodules Neuro: Alert, no focal deficits Weight Current Weight Dosing Weight: 95 kg (04/24/23) Current Weight: 95 kg (04/22/23) Dosing Weight: 95 kg (04/22/23) Medications Medications (15) Active Scheduled: (10) apixaban 5 mg tablet 10 mg 2 tab(s), Oral, BID ceFAZolin syringe 2 gram(s) 20 mL, IV Push (INT), PREOP pharm clobetasol 0.05% topical foam 1 karime, Topical, qDay fluticasone nasal 0.05 mg/inh [place] 50 mcg 1 spray(s), Nostril, each, qDay fluticasone nasal 0.05 mg/inh [place] 50 mcg 1 spray(s), Nostril, each, BID hydrochlorothiazide 12.5 mg tablet 12.5 mg 1 tab(s), Oral, qDay lisinopril 10 mg tablet 10 mg 1 tab(s), Oral, qDay menthol (Biofreeze) gel packet 1 karime, Topical, BID metoprolol tartrate 50 mg tablet 50 mg 1 tab(s), Oral, BID multivitamin (Myadec) with minerals Therapeutic Multiple Vitamins with Minerals Tablet 1 tab(s), Oral, qDayM Continuous: (0) PRN: (5) acetaminophen 325 mg Tablet 650 mg 2 tab(s), Oral, q4h albuterol 0.083% Soln UD (2.5mg/3 mL) 2.5 mg 3 mL, Inhalation, q4hRT benzonatate 100 mg Capsule 100 mg 1 cap(s), Oral, TID guaifenesin 100 mg/5 mL 120 mL liquid 200 mg 10 mL, Oral, q4h hydralazine 20 mg/mL (1mL) vial 10 mg 0.5 mL, IV Push, q6h Lab Results 04/26 04:33 WBC: 9.9 Hgb: 12.4 Hct: 36.2 Platelet: 144 L Neutrophil %: 76.5 H Glucose Level: 112 Sodium Level: 138 Potassium Level: 3.0 L BUN: 20.0 Creatinine Lvl (s): 0.66 EKG No qualifying data available. Assessment/Plan Extensive right pulmonary artery embolus, bilateral PE with acute hypoxia: 2D echo showed The cavity size is increased. Systolic function is reduced. Systolic pressure is severely increased. The RV systolic pressure by Doppler is 69 mm Hg. she still has SOB at rest. Vascular surgery consulted, had EKOS catheter and initiation of pharmacomechanical thrombolysis, SOB improved, DC weight based heparin. started Eliquis today. Elevated troponin: Most likely secondary to PE. Elevated BNP T: No signs of volume overload Hypokalemia: replaced. Hypertension: bp in control. Digitally Signed by DAISHA WOODWARD MD on 04/27/2023 01:34 AM [facility] [id number] Pulmonary Progress note Date of Service 04/26/2023 Chief Complaint Nasal congestion Subjective Ms. Tuttle is a 67-year-old female past medical history hypertension who recently traveled by car to [place] and returned last Tuesday then developed lower extremity edema followed by shortness of breath with chest discomfort, which she describes as heaviness. Symptoms got progressively worse with worsening edema. There is a family history of DVT in her sister. [facility] was found to be 85% on room air. CTA showed extensive right pulmonary emboli with small right upper lobe and left lower lobe branch emboli. Her troponin was 116, BNP is 6059. She wasstarted on heparin by weight and admitted to the hospital , Patient was hypoxemic, but normotensive, quite short of breath at rest, 2D echo reveals severe RV systolic dysfunction with elevated systolic pulm artery pressure, troponin and proBNP was elevated, for which patient underwent catheter directed thrombolysis therapy/EKOS system per vascular surgery on 04/24/2023, afterward patient felt muchbetter. Last 24 hours: No shortness of breath at rest, can speak in full sentences, O2 saturation 98% on 2 L Roxiprin nasal cannula, we tried her on room air and with that O2 saturation is 93-94%, she did drop to 86% with walking to bathroom on room air. No chest pain, no palpitation, overall feeling much better compared with a preintervention state. Objective Vitals and Measurements T: 36.6 C (Oral) TMIN: 36.6 C (Oral) TMAX: 37 C (Oral) HR: 103(Monitored) HR: 103(Apical) RR: 19 BP: 127/76 SpO2: 94% Physical Exam HEENT: Clear Heart: Regular rhythm no additional heart sounds Lungs: Clear breath sounds bilaterally no wheezing Abdomen: Soft no tenderness Lower extremities: No edema Neuro: Alert, follows commands, moves all 4 extremities Weight Current Weight Dosing Weight: 95 kg (04/24/23) Current Weight: 95 kg (04/22/23) Dosing Weight: 95 kg (04/22/23) Medications Medications (17) Active Scheduled: (9) apixaban 5 mg tablet 10 mg 2 tab(s), Oral, BID ceFAZolin syringe 2 gram(s) 20 mL, IV Push (INT), PREOP pharm clobetasol 0.05% topical foam 1 karime, Topical, qDay fluticasone nasal 0.05 mg/inh [place] 50 mcg 1 spray(s), Nostril, each, qDay hydrochlorothiazide 12.5 mg tablet 12.5 mg 1 tab(s), Oral, qDay lisinopril 10 mg tablet 10 mg 1 tab(s), Oral, qDay menthol (Biofreeze) gel packet 1 karime, Topical, BID metoprolol tartrate 50 mg tablet 50 mg 1 tab(s), Oral, BID multivitamin (Myadec) with minerals Therapeutic Multiple Vitamins with Minerals Tablet 1 tab(s), Oral, qDayM Continuous: (1) heparin 25,000 unit(s) [18 unit(s)/kg/hr] + Dextrose 5% Premix Diluent 250 mL 250 mL, Intravenous, 17.1 mL/hr PRN: (7) acetaminophen 325 mg Tablet 650 mg 2 tab(s), Oral, q4h albuterol 0.083% Soln UD (2.5mg/3 mL) 2.5 mg 3 mL, Inhalation, q4hRT benzonatate 100 mg Capsule 100 mg 1 cap(s), Oral, TID guaifenesin 100 mg/5 mL 120 mL liquid 200 mg 10 mL, Oral, q4h heparin 5,000 units/mL (1 mL) vial 6,650 unit(s) 1.33 mL, IV Push, q6h heparin 5,000 units/mL (1 mL) vial 3,800 unit(s) 0.76 mL, IV Push, q6h hydralazine 20 mg/mL (1mL) vial 10 mg 0.5 mL, IV Push, q6h Lab Results 04/26 04:33 WBC: 9.9 Hgb: 12.4 Hct: 36.2 Platelet: 144 L Neutrophil %: 76.5 H Glucose Level: 112 Sodium Level: 138 Potassium Level: 3.0 L BUN: 20.0 Creatinine Lvl (s): 0.66 04/25 05:50 WBC: 11.5 H Hgb: 12.3 Hct: 36.3 Platelet: 164 Neutrophil %: 81.3 H Glucose Level: 127 H Sodium Level: 139 Potassium Level: 3.2 L BUN: 25.0 H Creatinine Lvl (s): 0.71 EKG EKG - Completed -- 04/24/23 12:31:00 EDT Assessment/Plan 1. Acute submassive pulmonary emboli with left-sided proximal deep vein thrombosis involving femoral and popliteal vein, elevated troponin, proBNP T, status post catheter directed thrombolysis. 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 2. Sister history of DVT. Plan: 1. Patient has improved significantly, will be able this morning to wean her oxygen to room air, I5jeeryuibur 92-94%, suspect she might need oxygen at night and with ambulation. 2. We will transition patient to oral Lasix as apixaban 10 mg p.o. twice daily to complete 7 days including heparin, after that should be on 5 mg p.o. twice daily. 3. 1 follow the patient in the office in 2 months and at that time we will repeat 2D echo. Till then we will see the patient only as needed to do not hesitate to call and we will be happy toaddress any change in conditions or answer and answer questions Digitally Signed by NATHANIEL NOVAK MD on 04/26/2023 09:07 AM [facility] [id number] Note Date of Service 04/25/2023 Subjective Ms. Tutlte is a 67-year-old female past medical history hypertension who recently traveled by car to [place] and returned last Tuesday then developed lower extremity edema followed by shortness of breath with chest discomfort, which she describes as heaviness. Symptoms got progressively worse with worsening edema. There is a family history of DVT in her sister. She presented to the emergency d epartment at , was found to be 85% on room air. CTA showed extensive right pulmonary emboli with small right upper lobe and left lower lobe branch emboli. Her troponin was 116, BNP is 6059. She wasstarted on heparin by weight and admitted to the hospital. Over the past 24 hours she successfully underwent EKOS. Oxygen requirements continue to improve. She is sitting in bed comfortably. Feels breathing is improved and no longer having the chest pressure. Currently on 2 L nasal cannula saturating high 90s Objective Vitals and Measurements T: 36.6 C (Oral) TMIN: 36.5 C (Oral) TMAX: 36.9 C (Oral) HR: 93(Monitored) RR: 28 BP: 123/73 SpO2:97% HT: 160 cm WT: 95 kg BMI: 37.11 Intake and Output 7AM Yesterday to 7AM Today Intake and Output (Last 24 hours) Intake Administration Information 200.00 Output Intra-Op EBL 10.00 Stool Count 1.00 Urine Count 2.00 Total Summary Total Intake 200.00 Total Output 10.00 Fluid Balance 190.00 Physical Exam General-no acute distress, alert HEENT-normocephalic, atraumatic, extraocular movements intact Pulmonary-clear bilaterally, no wheeze Cardiovascular tachycardic, no appreciable murmurs, gallops or rubs Abdomen-soft, obese, bowel sounds positive Extremities-edema noted, no cyanosis or clubbing Neurologic-grossly nonfocal Weight Current Weight Dosing Weight: 95 kg (04/24/23) Current Weight: 95 kg (04/22/23) Dosing Weight: 95 kg (04/22/23) Medications Medications (14) Active Scheduled: (8) ceFAZolin syringe 2 gram(s) 20 mL, IV Push (INT), PREOP pharm clobetasol 0.05% topical foam 1 karime, Topical, qDay fluticasone nasal 0.05 mg/inh [place] 50 mcg 1 spray(s), Nostril, each, qDay hydrochlorothiazide 12.5 mg tablet 12.5 mg 1 tab(s), Oral, qDay lisinopril 10 mg tablet 10 mg 1 tab(s), Oral, qDay menthol (Biofreeze) gel packet 1 karime, Topical, BID metoprolol tartrate 50 mg tablet 50 mg 1 tab(s), Oral, BID multivitamin (Myadec) with minerals Therapeutic Multiple Vitamins with Minerals Tablet 1 tab(s), Oral, qDayM Continuous: (1) heparin 25,000 unit(s) [18 unit(s)/kg/hr] + Dextrose 5% Premix Diluent 250 mL 250 mL, Intravenous, 17.1 mL/hr PRN: (5) acetaminophen 325 mg Tablet 650 mg 2 tab(s), Oral, q4h albuterol 0.083% Soln UD (2.5mg/3 mL) 2.5 mg 3 mL, Inhalation, q4hRT heparin 5,000 units/mL (1 mL) vial 6,650 unit(s) 1.33 mL, IV Push, q6h heparin 5,000 units/mL (1 mL) vial 3,800 unit(s) 0.76 mL, IV Push, q6h hydralazine 20 mg/mL (1mL) vial 10 mg 0.5 mL, IV Push, q6h Lab Results 04/25 05:50 WBC: 11.5 H Hgb: 12.3 Hct: 36.3 Platelet: 164 Neutrophil %: 81.3 H Glucose Level: 127 H Sodium Level: 139 Potassium Level: 3.2 L BUN: 25.0 H Creatinine Lvl (s): 0.71 04/24 16:12 WBC: 11.6 H Hgb: 13.3 Hct: 39.3 Platelet: 176 Neutrophil %: 86.5 H Glucose Level: 130 H Sodium Level: 138 Potassium Level: 4.1 BUN: 21.0 Creatinine Lvl (s): 0.73 EKG Electrocardiogram (EKG) - InProcess -- 04/24/23 12:31:00 EDT Assessment/Plan 1. Extensive right pulmonary embolism with small right upper lobe and left lower lobe emboli statuspost EKOS on April 24 2. Recent car travel from [place] back to [place] 3. 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 Troponins downtrending, lactic acid normal 2. Continue heparin by weight for another 24 hours per vascular surgery. Can then transition to oral anticoagulation 3. Wean oxygen as tolerated 4. Echo shows increased right ventricular cavity size, reduced systolic function with an RVSP of 69mmHg. 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 She will need a repeat echocardiogram in 4 months as outpatient to assess for resolution of right heart strain 5. Follow-up factor V Leiden assay 30 minutes critical care time. Okay to transfer back to general medicine floor with pulmonary to follow Digitally Signed by HENRY ONEAL MD on 04/25/2023 11:09 AM [facility] [id number] Note ORIGINAL EXAMINATION: ONE XRAY VIEW OF THE CHEST 04/25/2023 5:37 am COMPARISON: None. HISTORY: ORDERING SYSTEM PROVIDED HISTORY: Reason for Exam: decreased breath sounds FINDINGS: No pneumothorax, suspected small bilateral effusions, left greater than right. Heart size is normal. Airspace disease at the left lung base. IMPRESSION: Small bilateral effusions, left greater than right with hazy airspace disease at the left lung base. Interpreted by: Fahad Hardin MD Preliminary Report By: Fahad Hardin MD Electronically signed By Fahad Hardin MD Dictated Date: 04/25/2023 7:38:15 AM Prelim Date: 04/25/2023 7:41:49 AM Sign Date: 04/25/2023 7:41:49 AM Ordering Provider: BUD PHAM [facility] [id number] Vascular surgery Progress note Date of Service 04/25/2023 Chief Complaint Submassive PE to right lung with right heart strain Subjective Patient is a very pleasant 67-year-old white female with history of remote DVT now with submassive PE to the right lung system and right heart strain. She has undergone catheter directed thrombolysisovernight and has significantly improved from a chest pain and shortness of breath standpoint. She states she no longer has chest pressure. She is back on her IV heparin. Objective Vitals and Measurements T: 36.7 C (Oral) TMIN: 36.4 C (Oral) TMAX: 36.9 C (Oral) HR: 94(Monitored) RR: 20 BP: 110/79 SpO2: 93% HT: 160 cm WT: 95 kg BMI: 37.11 Intake and Output 7AM Yesterday to 7AM Today Intake and Output (Last 24 hours) Intake Administration Information 200.00 Oral Intake 75.00 Output Intra-Op EBL 10.00 Stool Count 1.00 Urine Count 1.00 Total Summary Total Intake 275.00 Total Output 10.00 Fluid Balance 265.00 Physical Exam Cardiovascular: Tachycardic Respiratory: Clear to auscultation bilaterally Abdomen: Obese and benign Bilateral lower extremities are warm without cyanosis clubbing or edema Weight Current Weight Dosing Weight: 95 kg (04/24/23) Current Weight: 95 kg (04/22/23) Dosing Weight: 95 kg (04/22/23) Medications Medications (27) Active Scheduled: (11) ceFAZolin syringe 2 gram(s) 20 mL, IV Push (INT), PREOP pharm clobetasol 0.05% topical foam 1 karime, Topical, qDay fluticasone nasal 0.05 mg/inh [place] 50 mcg 1 spray(s), Nostril, each, qDay hydrochlorothiazide 12.5 mg tablet 12.5 mg 1 tab(s), Oral, qDay lisinopril 10 mg tablet 10 mg 1 tab(s), Oral, qDay metoprolol tartrate 50 mg tablet 50 mg 1 tab(s), Oral, BID Misc communication order 1 EA, Miscellaneous, Daily Misc communication order 1 EA, Miscellaneous, Daily multivitamin (Myadec) with minerals Therapeutic Multiple Vitamins with Minerals Tablet 1 tab(s), Oral, qDayM No metformin for 48 hrs post contrast 1 EA, Miscellaneous, Unscheduled potassium phosphate 30 mmol 10 mL, IV Piggyback, Once Continuous: (7) alteplase 10 mg [1 mg/hr] + Sodium Chloride 0.9% 240 mL 240 mL, Intravenous, 25 mL/hr alteplase 10 mg [1 mg/hr] + Sodium Chloride 0.9% 240 mL 240 mL, Intravenous, 25 mL/hr alteplase 10 mg [1 mg/hr] + Sodium Chloride 0.9% 240 mL 240 mL, Intravenous, 25 mL/hr heparin 25,000 unit(s) [18 unit(s)/kg/hr] + Dextrose 5% Premix Diluent 250 mL 250 mL, Intravenous, 17.1 mL/hr heparin 25,000 unit(s) [800 unit(s)/hr] + Dextrose 5% Premix Diluent 250 mL 250 mL, Intravenous, 8 mL/hr NS (0.9% nacl) 1,000 mL 1,000 mL, Intravenous, 35 mL/hr NS (0.9% nacl) 1,000 mL 1,000 mL, Intravenous, 35 mL/hr PRN: (9) acetaminophen 325 mg Tablet 650 mg 2 tab(s), Oral, q4h acetaminophen-HYDROcodone 325-5 mg tablet 1 tab(s), Oral, q6h albuterol 0.083% Soln UD (2.5mg/3 mL) 2.5 mg 3 mL, Inhalation, q4hRT heparin 5,000 units/mL (1 mL) vial 6,650 unit(s) 1.33 mL, IV Push, q6h heparin 5,000 units/mL (1 mL) vial 3,800 unit(s) 0.76 mL, IV Push, q6h hydralazine 20 mg/mL (1mL) vial 10 mg 0.5 mL, IV Push, q6h hydralazine 20 mg/mL (1mL) vial 10 mg 0.5 mL, IV Push, q2h morphine 2 mg/mL 1 mL syringe 1 mg 0.5 mL, IV Push, q1h ondansetron 2 mg/ 1 mL 2 mL INJ 4 mg 2 mL, IV Push, q6h Lab Results 04/25 05:50 WBC: 11.5 H Hgb: 12.3 Hct: 36.3 Platelet: 164 Neutrophil %: 81.3 H Glucose Level: 127 H Sodium Level: 139 Potassium Level: 3.2 L BUN: 25.0 H Creatinine Lvl (s): 0.71 04/24 16:12 WBC: 11.6 H Hgb: 13.3 Hct: 39.3 Platelet: 176 Neutrophil %: 86.5 H Glucose Level: 130 H Sodium Level: 138 Potassium Level: 4.1 BUN: 21.0 Creatinine Lvl (s): 0.73 EKG Electrocardiogram (EKG) - InProcess -- 04/24/23 12:31:00 EDT Assessment/Plan Orders: .PharmacyCommunication, Start: 04/24/23 13:00:00 EDT, Unscheduled, 48 hour(s), Stop: 04/26/23 12:59:00 EDT, 04/24/23 12:16:00 EDT .PharmacyCommunication, Start: 04/24/23 12:16:00 EDT, Daily, 04/24/23 12:16:00 EDT .PharmacyCommunication, Start: 04/24/23 12:16:00 EDT, Daily, 04/24/23 12:16:00 EDT acetaminophen-hydrocodone, Start: 04/24/23 12:16:00 EDT, Dose = 1 tab(s), Tab, Oral, q6h, PRN, Pain, scale 1-6, 04/24/23 12:16:00 EDT alteplase 10 mg [1 mg/hr] + Sodium Chloride 0.9% intravenous solution 240 mL, Start: 04/24/23 9:59:00 EDT, Rate: 25 mL/hr, 04/24/23 9:59:00 EDT alteplase 10 mg [1 mg/hr] + Sodium Chloride 0.9% intravenous solution 240 mL, Start: 04/24/23 12:16:00 EDT, Rate: 25 mL/hr, 04/24/23 12:16:00 EDT alteplase 10 mg [1 mg/hr] + Sodium Chloride 0.9% intravenous solution 240 mL, Start: 04/24/23 12:16:00 EDT, Rate: 25 mL/hr, 04/24/23 12:16:00 EDT ceFAZolin, Start: 04/24/23 10:09:00 EDT, Dose= 2 gram(s), = 20 mL, IV Push (INT), PREOP pharm, Surgical Prophylaxis, Routine, Rate: 240 mL/hr, Infuse over: 5 minute(s), 20 mL, 04/24/23 10:09:00 EDT heparin, Start: 04/24/23 12:19:00 EDT, Dose = 6,650 unit(s), = 1.33 mL, IV Push, q6h, PRN, Protocol, Weight Based Heparin, 04/24/23 12:19:00 EDT heparin, Start: 04/24/23 12:19:00 EDT, Dose = 3,800 unit(s), = 0.76 mL, IV Push, q6h, PRN, Protocol, Weight Based Heparin, 04/24/23 12:19:00 EDT heparin 25,000 unit(s) [18 unit(s)/kg/hr] + Dextrose 5% Premix Diluent 250 mL, Start: 04/24/23 12:19:00 EDT, Rate: 17.1 mL/hr, 04/24/23 12:19:00 EDT heparin 25,000 unit(s) [800 unit(s)/hr] + Dextrose 5% Premix Diluent 250 mL, Start: 04/24/23 12:16:00 EDT, Rate: 8 mL/hr, 04/24/23 12:16:00 EDT hydrALAZINE, Start: 04/24/23 12:16:00 EDT, Dose = 10 mg, = 0.5 mL, IV Push, q2h, PRN, SBP greater than 160 mm Hg, 04/24/23 12:16:00 EDT morphine, Start: 04/24/23 12:16:00 EDT, Dose = 1 mg, = 0.5 mL, IV Push, q1h, PRN, Pain, scale 1-6, 04/24/23 12:16:00 EDT ondansetron, Start: 04/24/23 12:16:00 EDT, Dose = 4 mg, = 2 mL, IV Push, q6h, PRN, Nausea/Vomiting,04/24/23 12:16:00 EDT Sodium Chloride 0.9% intravenous solution 1,000 mL, Start: 04/24/23 12:16:00 EDT, Rate: 35 mL/hr, 04/24/23 12:16:00 EDT Sodium Chloride 0.9% intravenous solution 1,000 mL, Start: 04/24/23 12:16:00 EDT, Rate: 35 mL/hr, 04/24/23 12:16:00 EDT Bedrest Bedrest Call Parameters Call Parameters Call Parameters Call Parameters Call Parameters Call Parameters Call Parameters Call Parameters Call Parameters Communication Order (continuous) Communication Order (continuous) Communication Order (continuous) Communication Order (continuous) Communication Order (continuous) Communication Order (scheduled) Communication Order (scheduled) Complete Blood Count Diet Order Elevate Head of Bed Heparin/APTT Maintenance Heparin/APTT Maintenance Heparin/APTT Maintenance Heparin/APTT Maintenance Intake and Output Intake and Output Call Parameters Log Roll Neurological Check Oxygen Administration Specimen collect by nurse Vital Signs Call Parameters Patient is status post femoral mechanical thrombolysis with the EKOS catheter system to the right lung. Clinically she has improved. She remains tachycardic and is on her heparin drip. Recommend continued heparin overnight and transition to oral anticoagulation tomorrow morning. Diet and activity may be increased. Okay for transfer back to the floor from a vascular standpoint. Digitally Signed by PRO ALDANA MD on 04/25/2023 07:02 AM [facility] [id number] Note ORIGINAL EXAMINATION: ONE XRAY VIEW OF THE CHEST 04/25/2023 5:37 am COMPARISON: None. HISTORY: ORDERING SYSTEM PROVIDED HISTORY: Reason for Exam: decreased breath sounds FINDINGS: No pneumothorax, suspected small bilateral effusions, left greater than right. Heart size is normal. Airspace disease at the left lung base. IMPRESSION: Small bilateral effusions, left greater than right with hazy airspace disease at the left lung base. Interpreted by: Fahad Hardin MD Preliminary Report By: Fahad Hardin MD Electronically signed By Fahad Hardin MD Dictated Date: 04/25/2023 7:38:15 AM Prelim Date: 04/25/2023 7:41:49 AM Sign Date: 04/25/2023 7:41:49 AM Ordering Provider: [id number] Note Date of Service 04/24/23 Chief Complaint SOB Subjective Patient was seen and examined, continue to have SOB overnight, had EKOS catheter and initiation of pharmacomechanical thrombolysis today. Objective Vitals and Measurements T: 36.8 C (Oral) TMIN: 36.4 C (Oral) TMAX: 36.9 C (Oral) HR: 98(Monitored) RR: 24 BP: 112/80 SpO2: 97% HT: 160 cm WT: 95 kg BMI: 37.11 Intake and Output 7AM Yesterday to 7AM Today Intake and Output (Last 24 hours) Intake Administration Information 271.06 Oral Intake 75.00 Output Intra-Op EBL 10.00 Stool Count 1.00 Urine Count 2.00 Total Summary Total Intake 346.06 Total Output 10.00 Fluid Balance 336.06 Physical Exam Gen: Appears in respiratory distress. HEENT: No pallor, no icterus, neck supple. Lungs: CTA, good air entry, diminished breath sounds. CVS: S1-S2 regular rate and rhythm, no murmur noted Abd: Nontender, bowel sounds noted, no organomegaly Ext: Pulses symmetric, no edema Skin: No rash, no nodules Neuro: Alert, no focal deficits Weight Current Weight Dosing Weight: 95 kg (04/24/23) Current Weight: 95 kg (04/22/23) Dosing Weight: 95 kg (04/22/23) Medications Medications (26) Active Scheduled: (10) ceFAZolin syringe 2 gram(s) 20 mL, IV Push (INT), PREOP pharm clobetasol 0.05% topical foam 1 karime, Topical, qDay fluticasone nasal 0.05 mg/inh [place] 50 mcg 1 spray(s), Nostril, each, qDay hydrochlorothiazide 12.5 mg tablet 12.5 mg 1 tab(s), Oral, qDay lisinopril 10 mg tablet 10 mg 1 tab(s), Oral, qDay metoprolol tartrate 50 mg tablet 50 mg 1 tab(s), Oral, BID Misc communication order 1 EA, Miscellaneous, Daily Misc communication order 1 EA, Miscellaneous, Daily multivitamin (Myadec) with minerals Therapeutic Multiple Vitamins with Minerals Tablet 1 tab(s), Oral, qDayM No metformin for 48 hrs post contrast 1 EA, Miscellaneous, Unscheduled Continuous: (7) alteplase 10 mg [1 mg/hr] + Sodium Chloride 0.9% 240 mL 240 mL, Intravenous, 25 mL/hr alteplase 10 mg [1 mg/hr] + Sodium Chloride 0.9% 240 mL 240 mL, Intravenous, 25 mL/hr alteplase 10 mg [1 mg/hr] + Sodium Chloride 0.9% 240 mL 240 mL, Intravenous, 25 mL/hr heparin 25,000 unit(s) [18 unit(s)/kg/hr] + Dextrose 5% Premix Diluent 250 mL 250 mL, Intravenous, 17.1 mL/hr heparin 25,000 unit(s) [800 unit(s)/hr] + Dextrose 5% Premix Diluent 250 mL 250 mL, Intravenous, 8 mL/hr NS (0.9% nacl) 1,000 mL 1,000 mL, Intravenous, 35 mL/hr NS (0.9% nacl) 1,000 mL 1,000 mL, Intravenous, 35 mL/hr PRN: (9) acetaminophen 325 mg Tablet 650 mg 2 tab(s), Oral, q4h acetaminophen-HYDROcodone 325-5 mg tablet 1 tab(s), Oral, q6h albuterol 0.083% Soln UD (2.5mg/3 mL) 2.5 mg 3 mL, Inhalation, q4hRT heparin 5,000 units/mL (1 mL) vial 6,650 unit(s) 1.33 mL, IV Push, q6h heparin 5,000 units/mL (1 mL) vial 3,800 unit(s) 0.76 mL, IV Push, q6h hydralazine 20 mg/mL (1mL) vial 10 mg 0.5 mL, IV Push, q6h hydralazine 20 mg/mL (1mL) vial 10 mg 0.5 mL, IV Push, q2h morphine 2 mg/mL 1 mL syringe 1 mg 0.5 mL, IV Push, q1h ondansetron 2 mg/ 1 mL 2 mL INJ 4 mg 2 mL, IV Push, q6h Lab Results 04/24 16:12 WBC: 11.6 H Hgb: 13.3 Hct: 39.3 Platelet: 176 Neutrophil %: 86.5 H Glucose Level: 130 H Sodium Level: 138 Potassium Level: 4.1 BUN: 21.0 Creatinine Lvl (s): 0.73 EKG Electrocardiogram (EKG) - InProcess -- 04/24/23 12:31:00 EDT Assessment/Plan Extensive right pulmonary artery embolus, bilateral PE with acute hypoxia: 2D echo showed The cavity size is increased. Systolic function is reduced. Systolic pressure is severely increased. The RV systolic pressure by Doppler is 69 mm Hg. she still has SOB at rest. continue weight based heparin. Vascular surgery consulted, had EKOS catheter and initiation of pharmacomechanical thrombolysis today. Elevated troponin: Most likely secondary to PE. Elevated BNP T: No signs of volume overload Hypokalemia: replaced. Hypertension: bp in control. Digitally Signed by DAISHA WOODWARD MD on 04/24/2023 11:36 PM [facility] [id number] Note ORIGINAL EXAMINATION: ONE XRAY VIEW OF THE CHEST04/24/2023 6:20 pm CHEST ONE VIEW AP/PA COMPARISON: 04/24/2023 HISTORY: ORDERING SYSTEM PROVIDED HISTORY: Reason for Exam: [id number]^ FINDINGS: Lines/Tubes: None. Interval removal of a arterial catheter. Lungs: No evidence of pneumothorax. New blunting of the left costophrenic angle and new subtle patchy opacification of the right greater than left perihilar regions. Heart/Mediastinum: Mildly enlarged in size with prominence of the pulmonary arteries, not significantly changed. Bones/Soft Tissues: Unchanged. IMPRESSION: New patchy opacities of the right greater than left perihilar region could represent pulmonary infarcts or hemorrhage secondary to known pulmonary emboli. Developing pneumonia is not excluded. New small left pleural effusion. Interpreted by: Dariusz Giles Preliminary Report By: Dariusz Giles Electronically signed By Dariusz Giles Dictated Date: 04/24/2023 7:14:55 PM Prelim Date: 04/24/2023 7:18:41 PM Sign Date: 04/24/2023 7:18:41 PM Ordering Provider: LEONA MCNAIR [facility] [id number] Note ORIGINAL EXAMINATION: ONE XRAY VIEW OF THE CHEST04/24/2023 6:20 pm CHEST ONE VIEW AP/PA COMPARISON: 04/24/2023 HISTORY: ORDERING SYSTEM PROVIDED HISTORY: Reason for Exam: [id number]^ FINDINGS: Lines/Tubes: None. Interval removal of a arterial catheter. Lungs: No evidence of pneumothorax. New blunting of the left costophrenic angle and new subtle patchy opacification of the right greater than left perihilar regions. Heart/Mediastinum: Mildly enlarged in size with prominence of the pulmonary arteries, not significantly changed. Bones/Soft Tissues: Unchanged. IMPRESSION: New patchy opacities of the right greater than left perihilar region could represent pulmonary infarcts or hemorrhage secondary to known pulmonary emboli. Developing pneumonia is not excluded. New small left pleural effusion. Interpreted by: Dariusz Giles Preliminary Report By: Dariusz Giles Electronically signed By Dariusz Giles Dictated Date: 04/24/2023 7:14:55 PM Prelim Date: 04/24/2023 7:18:41 PM Sign Date: 04/24/2023 7:18:41 PM Ordering Provider: LEONA MCNAIRUniversity [facility]als [facility] [id number] Note ORIGINAL EXAMINATION: ONE XRAY VIEW OF THE CHEST04/24/2023 12:58 pm COMPARISON: Pulmonary angio/EKOS catheter 04/24/2023, CTA chest 04/22/2023 images only HISTORY: ORDERING SYSTEM PROVIDED HISTORY: Reason for Exam: tachypnea FINDINGS: Inferior approach EKOS catheter which is projecting over the right mid lung and suspected to be located within one of the branches of the right pulmonary artery. The cardiomediastinal silhouette is within normal limits. Mild pulmonary vascular congestion. No focal consolidation, pneumothorax or large volume pleural effusion. No acute osseous abnormality. IMPRESSION: Right-sided EKOS catheter as above. Suspect mild pulmonary vascular congestion. I have personally reviewed the images of this examination and agree with the resident's findings and interpretation. RECOMMENDATIONS: Unavailable Interpreted by: Chong Sanabria DO Preliminary Report By: Shruthi Cheung Electronically signed By Chong Sanabria DO Dictated Date: 04/24/2023 1:09:35 PM Prelim Date: 04/24/2023 1:16:27 PM Sign Date: 04/24/2023 1:23:03 PM Ordering Provider: FELIPE MuñizMercy Memorial [id number] Note ORIGINAL EXAMINATION: ONE XRAY VIEW OF THE CHEST04/24/2023 12:58 pm COMPARISON: Pulmonary angio/EKOS catheter 04/24/2023, CTA chest 04/22/2023 images only HISTORY: ORDERING SYSTEM PROVIDED HISTORY: Reason for Exam: tachypnea FINDINGS: Inferior approach EKOS catheter which is projecting over the right mid lung and suspected to be located within one of the branches of the right pulmonary artery. The cardiomediastinal silhouette is within normal limits. Mild pulmonary vascular congestion. No focal consolidation, pneumothorax or large volume pleural effusion. No acute osseous abnormality. IMPRESSION: Right-sided EKOS catheter as above. Suspect mild pulmonary vascular congestion. I have personally reviewed the images of this examination and agree with the resident's findings and interpretation. RECOMMENDATIONS: Unavailable Interpreted by: Chong Sanabria DO Preliminary Report By: Shruthi Cheung Electronically signed By Chong Sanabria DO Dictated Date: 04/24/2023 1:09:35 PM Prelim Date: 04/24/2023 1:16:27 PM Sign Date: 04/24/2023 1:23:03 PM Ordering Provider: FELIPE HAWTHORNEUniversity Hospitals [facility] Medical [id number] Note ORIGINAL Images acquired, not reported on this accession number. 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 Patient recently went under long car trip from [place] and had sudden onset of chest pain and shortness of breath. She was initially evaluated outside medical facility and CAT scan revealed large PE to the right lung. She has undergone clinical evaluation by the medical service and critical care and 2D echo which shows right heart strain. Vascular surgery is now consulted for evaluation for possible catheter directed thrombolysis with EKOS. Currently, patient is resting in bed on oxygen very short of breath with conversation and rapid respirations. She is alert and cooperative Review of Systems All systems are reviewed and are essentially negative on the above Physical Exam Vitals and Measurements T: 36.4 C (Oral) TMIN: 36.4 C (Oral) TMAX: 37 C (Oral) HR: 90(Apical) RR: 23 BP: 136/88 SpO2: 96% Weight Current Weight Dosing Weight: 95 kg (04/22/23) Current Weight: 95 kg (04/22/23) General: White female, obese, alert and oriented cooperative with exam, short of breath mild distress HEENT: Extraocular muscles are intact, pupils are equal round react light and accommodation, mucousmembranes are moist Neck: Supple with full range of motion Respiratory: Rapid shallow breaths and on nasal cannula oxygen Cardiovascular: Tachycardic Abdomen: Obese and benign Bilateral lower extremities are large with mild to moderate edema on the left and mild on the right Neuro: Gross mental status intact cranial nerves II through XII are intact Vascular: Palpable pedal pulses bilaterally Lab Results No 36 Hour Lab Data Imaging Results and Diagnostics CTA of the chest reviewed and shows occlusion of the right pulmonary artery system and small PE to the left segmental arteries 2D echo shows right heart strain with elevated pressures Left lower extremity venous ultrasound shows acute on chronic DVT Assessment/Plan Orders: alteplase 10 mg [1 mg/hr] + Sodium Chloride 0.9% intravenous solution 240 mL, Start: 04/24/23 9:59:00 EDT, Rate: 25 mL/hr, 04/24/23 9:59:00 EDT Patient is a very pleasant 67-year-old morbidly obese white female with multiple medical comorbidities and prior history of DVT. She is currently on a heparin drip. I have reviewed her testing with her and agree that catheter directed thrombolysis with EKOS would be appropriate. Unfortunately she has not been kept n.p.o. and ate breakfast. Given the length that she has undergone since initial diagnosis and continued symptomatology I believe we should proceed to the OR and use straight local to try and accomplish pulmonary EKOS at the submassive PE to the right pulmonary artery. I believe the risks outweigh the benefits and I discussed this with her at length and she agrees. Patient will need to be converted from IV heparin to most likely lifelong anticoagulation. 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 She should also undergo hypercoagulable work-up by hematology oncology but this can be done as an outpatient. Problem List/Past Medical History Ongoing No qualifying data Historical No qualifying data History of DVT Procedure/Surgical History No qualifying data available. Medications Inpatient albuterol 2.5 mg/3 mL (0.083%) inhalation solution, 2.5 mg= 3 mL, Inhalation, q4hRT, PRN Alteplase for IV 10 mg [1 mg/hr] + Sodium Chloride 0.9% intravenous solution 240 mL Cerovite Advanced Formula, 1 tab(s), Oral, qDayM clobetasol 0.05% topical foam, 1 karime, Topical, qDay Flonase 50 mcg/inh nasal spray, 50 mcg= 1 spray(s), Nostril, each, qDay Heparin for IV 25,000 unit(s) [18 unit(s)/kg/hr] + Dextrose 5% Premix Diluent 250 mL Heparin HBW Bolus 5000 units/mL, 6650 unit(s)= 1.33 mL, 70 unit(s)/kg, IV Push, q6h, PRN Heparin HBW Bolus 5000 units/mL, 3800 unit(s)= 0.76 mL, 40 unit(s)/kg, IV Push, q6h, PRN hydrALAZINE, 10 mg= 0.5 mL, IV Push, q6h, PRN hydroCHLOROthiazide, 12.5 mg= 1 tab(s), Oral, qDay ivermectin 1% topical cream, 1 karime, Topical, qDay metoprolol tartrate 50 mg oral tablet, 50 mg= 1 tab(s), Oral, BID Tylenol, 650 mg= 2 tab(s), Oral, q4h, PRN Zestril, 10 mg= 1 tab(s), Oral, qDay Zofran, 4 mg= 2 mL, IV Push, q4h, PRN Home CholestOff oral caplet, Oral, qDay clobetasol 0.05% topical foam, 1 karime, Topical, qDay Flonase 50 mcg/inh nasal spray, 1 spray(s), Nostril, each, qDay hydrochlorothiazide-lisinopril 12.5 mg-10 mg oral tablet, 1 tab(s), Oral, Daily ivermectin 1% topical cream, 1 karime, Topical, qDay meclizine 25 mg oral tablet, 25 mg= 1 tab(s), Oral, QID, PRN metoprolol tartrate 50 mg oral tablet, 50 mg= 1 tab(s), Oral, BID Multiple Vitamins oral capsule, 1 cap(s), Oral, Daily TNF-Med Allergies NKA Social History Patient is a 67-year-old white female who lives at home [place] she is retired. She does not smoke or drink alcohol Family History Noncontributory Immunizations No qualifying data available. Digitally Signed by PRO ALDANA MD on 04/24/2023 10:32 AM [facility] [id number] Anesthesiology Consult note Patient: ASHLEY TUTTLE Age: 67 years Sex: Female : 1955 Associated Diagnoses: None Author: MANUEL DYER MD Preoperative Information Ate scrambled eggs and toast at 8:10AM this morning Anesthesia history Patient's history: negative. Family's history: negative. History of Present Illness 67yo F w/ pmhx of HTN presenting with SOA and CP for past 5 days after long car trip, found to haveLE DVT and b/l PE for EKOS procedure. Normally walks 2 flights of stairs without CP and SOA, but has developed both symptoms in past 5 days. Echo- EF-70%, RV fxn reduced, moderate TR, RVSP-69mmHg. Review of Systems Ear/Nose/Mouth/Throat: Negative except as documented in history of present illness. Respiratory: Negative except as documented in history of present illness. Cardiovascular: Negative except as documented in history of present illness. Gastrointestinal: Negative except as documented in history of present illness. Genitourinary: Negative except as documented in history of present illness. Endocrine: Negative except as documented in history of present illness. Musculoskeletal: Negative except as documented in history of present illness. Integumentary: Negative except as documented in history of present illness. Neurologic: Negative except as documented in history of present illness. Health Status Allergies: Allergic Reactions (Selected) NKA, Allergies (1) ActiveReaction NKANone Documented Current medications: (Selected) Inpatient Medications Ordered Alteplase for IV 10 mg [1 mg/hr] + Sodium Chloride 0.9% intravenous solution 240 mL: 25 mL/hr, Intravenous Cerovite Advanced Formula: 1 tab(s), Oral, qDayM Flonase 50 mcg/inh nasal spray: 50 mcg, 1 spray(s), Nostril, each, qDay Heparin HBW Bolus 5000 units/mL: 3,800 unit(s), 0.76 mL, IV Push, q6h, PRN: Protocol, Weight Based Heparin Heparin HBW Bolus 5000 units/mL: 6,650 unit(s), 1.33 mL, IV Push, q6h, PRN: Protocol, Weight Based Heparin Heparin for IV 25,000 unit(s) [18 unit(s)/kg/hr] + Dextrose 5% Premix Diluent 250 mL: 17.1 mL/hr, Intravenous Tylenol: 650 mg, 2 tab(s), Oral, q4h, PRN: Pain, scale 1-3 Zestril: 10 mg, 1 tab(s), Oral, qDay Zofran: 4 mg, 2 mL, IV Push, q4h, PRN: Nausea/Vomiting albuterol 2.5 mg/3 mL (0.083%) inhalation solution: 2.5 mg, 3 mL, Inhalation, q4hRT, PRN: Shortnessof breath or wheezing clobetasol 0.05% topical foam: 1 karime, Topical, qDay hydrALAZINE: 10 mg, 0.5 mL, IV Push, q6h, PRN: Systolic BP: See order comments hydroCHLOROthiazide: 12.5 mg, 1 tab(s), Oral, qDay ivermectin 1% topical cream: 1 karime, Topical, qDay metoprolol tartrate 50 mg oral tablet: 50 mg, 1 tab(s), Oral, BID Documented Medications Documented CholestOff oral caplet: Oral, qDay, 0 Refill(s) Flonase 50 mcg/inh nasal spray: 1 spray(s), Nostril, each, qDay, 0 Refill(s) Multiple Vitamins oral capsule: 1 cap(s), Oral, Daily, 0 Refill(s) TNF-Med: 0 Refill(s) clobetasol 0.05% topical foam: 1 karime, Topical, qDay, 50 gram(s), 0 Refill(s) hydrochlorothiazide-lisinopril 12.5 mg-10 mg oral tablet: 1 tab(s), Oral, Daily, 30 tab(s), 0 Refill(s) ivermectin 1% topical cream: 1 karime, Topical, qDay, 30 gram(s), 0 Refill(s) meclizine 25 mg oral tablet: 25 mg, 1 tab(s), Oral, QID, PRN: as needed for dizziness, 30 tab(s), 0Refill(s) metoprolol tartrate 50 mg oral tablet: 50 mg, 1 tab(s), Oral, BID, 180 tab(s), 0 Refill(s), Medications (15) Active Scheduled: (7) clobetasol 0.05% topical foam 1 karime, Topical, qDay fluticasone nasal 0.05 mg/inh [place] 50 mcg 1 spray(s), Nostril, each, qDay hydrochlorothiazide 12.5 mg tablet 12.5 mg 1 tab(s), Oral, qDay ivermectin 1% topical cream 1 karime, Topical, qDay lisinopril 10 mg tablet 10 mg 1 tab(s), Oral, qDay metoprolol tartrate 50 mg tablet 50 mg 1 tab(s), Oral, BID multivitamin (Myadec) with minerals Therapeutic Multiple Vitamins with Minerals Tablet 1 tab(s), Oral, qDayM Continuous: (2) alteplase 10 mg [1 mg/hr] + Sodium Chloride 0.9% 240 mL 240 mL, Intravenous, 25 mL/hr heparin 25,000 unit(s) [18 unit(s)/kg/hr] + Dextrose 5% Premix Diluent 250 mL 250 mL, Intravenous, 17.1 mL/hr PRN: (6) acetaminophen 325 mg Tablet 650 mg 2 tab(s), Oral, q4h albuterol 0.083% Soln UD (2.5mg/3 mL) 2.5 mg 3 mL, Inhalation, q4hRT heparin 5,000 units/mL (1 mL) vial 6,650 unit(s) 1.33 mL, IV Push, q6h heparin 5,000 units/mL (1 mL) vial 3,800 unit(s) 0.76 mL, IV Push, q6h hydralazine 20 mg/mL (1mL) vial 10 mg 0.5 mL, IV Push, q6h ondansetron 2 mg/ 1 mL 2 mL INJ 4 mg 2 mL, IV Push, q4h Problem list: No problem items selected or recorded., No qualifying data available Histories Past Medical History: No active or resolved past medical history items have been selected or recorded. Family History: No family history items have been selected or recorded. Procedure history: No active procedure history items have been selected or recorded. Social History Social & Psychosocial Habits No Data Available . Physical Examination Vital Signs 04/24/2023 9:22 EDT Apical Heart Rate 90 bpm 04/24/2023 7:09 EDT Temperature Oral 36.4 DegC Apical Heart Rate 103 bpm HI Respiratory Rate 23 br/min HI Systolic Blood Pressure Non-Invasive 136 mmHg Diastolic Blood Pressure Non-Invasive 88 mmHg 04/24/2023 3:33 EDT Temperature Oral 36.5 DegC Heart Rate Monitored 104 bpm HI Respiratory Rate 22 br/min HI Systolic Blood Pressure Non-Invasive 118 mmHg Diastolic Blood Pressure Non-Invasive 94 mmHg HI Blood Pressure Method Automatic Blood Pressure Location Left arm Blood Pressure Cuff Size Medium Reason For Taking VItal Signs Routine 04/23/2023 23:26 EDT Temperature Oral 36.7 DegC Apical Heart Rate 90 bpm Respiratory Rate 23 br/min HI Systolic Blood Pressure Non-Invasive 138 mmHg Diastolic Blood Pressure Non-Invasive 82 mmHg Reason For Taking VItal Signs Routine 04/23/2023 18:28 EDT Temperature Oral 37 DegC Apical Heart Rate 97 bpm Respiratory Rate 22 br/min HI Systolic Blood Pressure Non-Invasive 130 mmHg Diastolic Blood Pressure Non-Invasive 77 mmHg Mean Arterial Pressure (NBP) 90 mmHg Blood Pressure Method Automatic Blood Pressure Location Left arm Blood Pressure Cuff Size Large Reason For Taking VItal Signs Routine 04/23/2023 17:33 EDT Apical Heart Rate 103 bpm VT 04/23/2023 15:48 EDT Peripheral Pulse Rate 100 bpm Respiratory Rate 22 br/min VT 04/23/2023 14:46 EDT Temperature Oral 36.7 DegC Apical Heart Rate 99 bpm Respiratory Rate 18 br/min Systolic Blood Pressure Non-Invasive 169 mmHg HI Diastolic Blood Pressure Non-Invasive 86 mmHg Mean Arterial Pressure (NBP) 107 mmHg Blood Pressure Method Automatic Blood Pressure Location Left arm Blood Pressure Cuff Size Medium Reason For Taking VItal Signs Routine 04/23/2023 12:58 EDT Temperature Oral 36.5 DegC Apical Heart Rate 93 bpm Respiratory Rate 22 br/min HI Systolic Blood Pressure Non-Invasive 136 mmHg Diastolic Blood Pressure Non-Invasive 87 mmHg Reason For Taking VItal Signs Routine 04/23/2023 9:43 EDT Apical Heart Rate 102 bpm VT 04/23/2023 9:42 EDT Apical Heart Rate 102 bpm VT 04/23/2023 7:16 EDT Temperature Oral 36.4 DegC Peripheral Pulse Rate 105 bpm HI Respiratory Rate 18 br/min Systolic Blood Pressure Non-Invasive 123 mmHg Diastolic Blood Pressure Non-Invasive 66 mmHg Mean Arterial Pressure (NBP) 84 mmHg Blood Pressure Method Automatic Blood Pressure Location Left arm Blood Pressure Cuff Size Large 04/23/2023 3:06 EDT Temperature Oral 36.5 DegC Peripheral Pulse Rate 101 bpm HI Respiratory Rate 20 br/min Systolic Blood Pressure Non-Invasive 150 mmHg HI Diastolic Blood Pressure Non-Invasive 76 mmHg Vital Signs(last 24 hrs) Last Charted Temp Oral36.4 DegC (APR 24 07:09) Heart Rate MonitoredH 104bpm (APR 24 03:33) Resp Rate H 23br/min (APR 24 07:09) [id number] mmHg (APR 24 07:09) DBP88 mmHg (APR 24 07:09) Pain assessment: Pain Assessment 04/24/2023 9:44 EDT Primary Pain Intensity 0 Pain Scale Type 0-10 Pain scale 04/24/2023 3:45 EDT Primary Pain Intensity 0 Pain Scale Type 0-10 Pain scale 04/23/2023 23:55 EDT Primary Pain Intensity 1 Primary Pain Nonverbal Response Appears restful Pain Scale Type PAINAD 04/23/2023 15:45 EDT Primary Pain Intensity 0 Pain Scale Type 0-10 Pain scale 04/23/2023 12:58 EDT Primary Pain Intensity 0 Pain Scale Type 0-10 Pain scale 04/23/2023 9:42 EDT Primary Pain Intensity 0 Pain Scale Type 0-10 Pain scale 04/23/2023 3:06 EDT Primary Pain Location Arm Primary Pain Laterality Right Primary Pain Intensity 2 Primary Pain Non-Pharma Intervention Repositioning, Rest Pain Scale Type 0-10 Pain scale . General: Alert and oriented, obese. Airway: Normal temporomandibular joint mobility, Normal mouth, Normal throat, Normal neck range of motion, Trachea midline. Mallampati classification: III (soft palate, base of uvula visible). Head: Normocephalic. Dentition Evaluation: Intact, Own teeth, poor dentition. Neck: Supple. Respiratory: Lungs are clear to auscultation, slightly labored respirations, on O2. Cardiovascular: Normal rate, Regular rhythm, No murmur, +3 LE edema. Heart Sounds: Normal. Gastrointestinal: Soft. Musculoskeletal Normal range of motion. Integumentary: Intact, Warm, Dry. Neurologic: Alert, Oriented. Review / Management Results review: Labs (Last four charted values) WBC 10.8(APR 22) Hgb 13.9(APR 22) Hct 40.6(APR 22) Plt 181(APR 22) Na 142(APR 22) K 4.0(APR 22) CO2 L 21(APR 22) Cl 104(APR 22) Cr 0.69(APR 22) BUN 17.0(APR 22) Glucose H 127(APR 22) Ca 9.0(APR 22) PTT H 52.8(APR 24)H 102.1(APR 24)H 93.3(APR 23)H 59.6(APR 23) , Lab results 04/24/2023 9:57 EDT Urinary Elimination Voiding, no difficulties IV Present Present Patient Dressed In Hospital gown CHG Preoperative Wash/Wipe Day of procedure, Site specific wipe Preop Nasal Swab Povidone-Iodine NPO Status Maintained 04/24/2023 9:44 EDT Primary Pain Intensity 0 Pain Scale Type 0-10 Pain scale Nail Bed Color [place] Capillary Refill < 2 seconds Heart Rhythm Regular Dorsalis Pedis Pulse, Left 2+ Normal Dorsalis Pedis Pulse, Right 2+ Normal Radial Pulse, Left 2+ Normal Radial Pulse, Right 2+ Normal Leg edema Right Edema Ratin+ trace/2mm Leg edema Left Edema Ratin+ mild/4mm Respiratory Symptoms Difficulty breathing at rest, Difficulty breathing with activity Respirations Labored Respiratory Pattern Regular Breath Sounds Auscultated Anterior only All Lobes Breath Sounds Clear Cough and Deep Breathe Done Cough None Abdomen Description Non-distended, Soft Abdomen Palpation Non-Tender Passing Flatus Yes Bowel Movement Last Date 04/24/2023 Bowel Continence Continent Bowel Sounds All Quadrants Present Urinary Elimination Voiding, no difficulties Facial Movement Symmetric resting/crying All Extremity Description [place], Normal for ethnicity Skin Temperature Warm Temperature All Extremities Warm Skin Description [place], Normal for ethnicity Skin Integrity Intact Skin Turgor Elastic Mucous Membrane Color [place] Mucous Membrane Description Moist Neurological Language Able to speak clearly Neurological Symptoms Fatigue Gait Steady Extremity Movement Equal Swallowing Difficulty None Characteristics of Communication Appropriate Characteristics of Speech Clear Facial Symmetry Symmetric Level of Consciousness Alert Aspiration Risk None Eye Opening Response Sugar Spontaneously Best Motor Response Sugar Obeys simple commands Best Verbal Response [place] Oriented [place] Coma Score 15 SALLY Yes Left Pupil Description Regular Right Pupil Description Regular Left Pupil Reaction Brisk Right Pupil Reaction Brisk Pupil Size, Left 3 mm Pupil Size, Right 3 mm Strength All Extremities Strong Left Upper Extremity Sensation Intact Right Upper Extremity Sensation Intact Left Lower Extremity Sensation Intact Right Lower Extremity Sensation Intact CN V Facial Sensation Light touch equal bilaterally CN VII Facial Expression and Symmetry Facial movement symmetrical CN VIII Hearing Spoken word equally audible left/right CN IX, X Swallowing, Gag Reflex Swallowing present Affect/Behavior Appropriate, Calm, Cooperative Orientation Oriented x 4 Orientation Assessment Oriented x 4 Appetite Good Eating Difficulties None Stool Count 1 EA 04/24/2023 9:32 EDT CAM Mental Status Change & Fluctuation No CAM Inattention No CAM Disorganized Thinking No CAM Altered Level of Consciousness No Confusion Assessment Method Score Negative 04/24/2023 9:31 EDT Able To Drink Order Detail Yes Able To Sign Consents Order Detail Yes Code Status Order Detail Full code IV Order Detail Yes Dialysis Schedule Order Detail N/A Has Diabetes Order Detail No Isolation Precautions Order Detail None Nurse Collect Order Detail 0 Oxygen Order Detail Yes Order Detail No Prior Valve Replacement Order Detail No Transport Mode Order Detail MTT with Monitor Clerical Associate Details Form Clerical Associate Details Form 04/24/2023 9:25 EDT Antecubital Left 04/22/2023 20 gauge Peripheral IV Activity: Assessed Peripheral IV Dressing Condition: Clean, Dry, Intact Peripheral IV Dressing Activity: Transparent dressing Peripheral IV Line Status/Patency: Flushes easily Peripheral IV Site Condition: No complications Peripheral IV Equipment: PRN Adaptor Forearm Left 04/23/2023 20 gauge Peripheral IV Activity: Assessed Peripheral IV Dressing Condition: Clean, Dry, Intact Peripheral IV Dressing Activity: Transparent dressing Peripheral IV Line Status/Patency: Continuous infusion Peripheral IV Site Condition: No complications Peripheral IV Equipment: IV Pump 04/24/2023 9:23 EDT Sensory Perception Daniel Slightly limited Moisture Daniel Rarely moist Activity Daniel Walks occasionally Mobility Daniel Slightly limited Nutrition Daniel Adequate Friction and Shear Daniel Potential problem Daniel Score 18 Rojo Screen Daily History of Fall in Last 3 Months Rojo No Presence of Secondary Diagnosis Rojo Yes Use of Ambulatory Aid Rojo None, bedrest, wheelchair, nurse IV/PRN Adapter Fall Risk Rojo Yes Gait Weak or Impaired Fall Risk Rojo Weak Mental Status Fall Risk Rojo Oriented to own ability Rojo Fall Risk Score 45 Violence Risk Confused No Violence Risk Irritable No Violence Risk Boisterous No Violence Risk Verbal Threats No Violence Risk Physical Threats No Violence Risk Attacking Objects No Violence Risk Predictor Score 0 Violence Risk Intervention None Violence Risk Current Interventions None Activity Status ADL Awake, Resting Standard Safety ID band on, Call device within reach, Bed in low position, Wheels locked, personal items within reach, Safety level maintained High Risk Safety Room check performed Demonstrates Correct Call Light Use Yes COVID 19 Surge in Effect Yes 04/24/2023 9:22 EDT Apical Heart Rate 90 bpm fluticasone nasal 50 mcg mcg hydrochlorothiazide 12.5 mg mg lisinopril 10 mg mg metoprolol 50 mg mg 04/24/2023 9:00 EDT TNF-Med Not Done: Other (Not Done) TNF-Med Not Done: Other (Not Done) 04/24/2023 8:50 EDT Notify date/time 04/24/2023 8:50 Provider Notified PRO ALDANA MD Notification Method Pager Information Communicated Consult Details Communicated R heart strain, R PE, DVT, EKOS? 04/24/2023 7:09 EDT Temperature Oral 36.4 DegC Apical Heart Rate 103 bpm HI Respiratory Rate 23 br/min HI Systolic Blood Pressure Non-Invasive 136 mmHg Diastolic Blood Pressure Non-Invasive 88 mmHg Oxygen Therapy Nasal cannula 0L-6L Oxygen Saturation 96 % Oxygen Flow Rate 2 Activity Status ADL Awake, Dangle Standard Safety ID band on, Call device within reach High Risk Safety Room check performed 04/24/2023 7:06 EDT heparin 11 unit(s)/kg/hr unit(s) Dextrose 5% Premix Diluent Dextrose 5% Premix Diluent mL 04/24/2023 7:00 EDT Oral Intake 75 mL 04/24/2023 6:59 EDT heparin 7,106 unit(s) unit(s) Dextrose 5% Premix Diluent 71.06 mL mL 04/24/2023 6:03 EDT Oxygen Therapy Nasal cannula 0L-6L Oxygen Activity Oxygen On Oxygen Flow Rate 2 04/24/2023 4:51 EDT Heparin dose (APTT) Heparin IV APTT 52.8 seconds HI 04/24/2023 3:45 EDT Primary Pain Intensity 0 Pain Scale Type 0-10 Pain scale Activity Status ADL Repositions self, Resting Standard Safety Safety level maintained High Risk Safety Room check performed Demonstrates Correct Call Light Use Yes COVID 19 Surge in Effect Yes RN Coordination of Care 3am-7am 04/24/2023 3:33 EDT Temperature Oral 36.5 DegC Heart Rate Monitored 104 bpm HI Respiratory Rate 22 br/min HI Systolic Blood Pressure Non-Invasive 118 mmHg Diastolic Blood Pressure Non-Invasive 94 mmHg HI Blood Pressure Method Automatic Blood Pressure Location Left arm Blood Pressure Cuff Size Medium Reason For Taking VItal Signs Routine Oxygen Therapy Nasal cannula 0L-6L Oxygen Saturation 90 % LOW Oxygen Flow Rate 2 Standard Safety Safety level maintained High Risk Safety Room check performed 04/24/2023 1:49 EDT heparin 10 unit(s)/kg/hr unit(s) Dextrose 5% Premix Diluent Dextrose 5% Premix Diluent mL 04/24/2023 0:46 EDT heparin unit(s)/kg/hr unit(s) Dextrose 5% Premix Diluent Dextrose 5% Premix Diluent mL 04/24/2023 0:08 EDT Heparin dose (APTT) Heparin IV APTT 102.1 seconds HI 04/23/2023 23:57 EDT Hospitalist Progress Note Progress Note 04/23/2023 23:57 EDT Able To Drink Order Detail Yes Able To Sign Consents Order Detail Yes Code Status Order Detail Full code IV Order Detail Yes Dialysis Schedule Order Detail N/A Has Diabetes Order Detail No Isolation Precautions Order Detail None Nurse Collect Order Detail 0 Oxygen Order Detail No Order Detail No Prior Valve Replacement Order Detail No Transport Mode Order Detail MTT with Monitor Clerical Associate Details Form Clerical Associate Details Form 04/23/2023 23:55 EDT Primary Pain Intensity 1 Primary Pain Nonverbal Response Appears restful Pain Scale Type PAINAD Violence Risk Confused No Violence Risk Irritable No Violence Risk Boisterous No Violence Risk Verbal Threats No Violence Risk Physical Threats No Violence Risk Attacking Objects No Violence Risk Predictor Score 0 Violence Risk Intervention None Violence Risk Current Interventions None Activity Status ADL Sleeping quietly with easy respirations Standard Safety ID band on, Call device within reach, Bed in low position, Wheels locked, Upper/Half-Length side-rails up, Phone within reach, personal items within reach, Safety level maintained High Risk Safety Door open, Room check performed Demonstrates Correct Call Light Use Yes COVID 19 Surge in Effect Yes RN Coordination of Care 11pm-3am 04/23/2023 23:29 EDT Activity Status ADL Awake, Dangle 04/23/2023 23:26 EDT Temperature Oral 36.7 DegC Apical Heart Rate 90 bpm Respiratory Rate 23 br/min HI Systolic Blood Pressure Non-Invasive 138 mmHg Diastolic Blood Pressure Non-Invasive 82 mmHg Reason For Taking VItal Signs Routine Oxygen Therapy Nasal cannula 0L-6L Oxygen Saturation 99 % Oxygen Flow Rate 2 04/23/2023 23:23 EDT CAM Mental Status Change & Fluctuation Not Done: Not Appropriate at this Time (Not Done) CAM Inattention Not Done: Not Appropriate at this Time (Not Done) CAM Disorganized Thinking Not Done: Not Appropriate at this Time (Not Done) CAM Altered Level of Consciousness Not Done: Not Appropriate at this Time (Not Done) Confusion Assessment Method Score Not Done: Not Appropriate at this Time (Not Done) Able To Drink Order Detail Not Done: Not Appropriate at this Time (Not Done) Able To Sign Consents Order Detail Not Done: Not Appropriate at this Time (Not Done) Code Status Order Detail Not Done: Not Appropriate at this Time (Not Done) IV Order Detail Not Done: Not Appropriate at this Time (Not Done) Dialysis Schedule Order Detail Not Done: Not Appropriate at this Time (Not Done) Has Diabetes Order Detail Not Done: Not Appropriate at this Time (Not Done) Isolation Precautions Order Detail Not Done: Not Appropriate at this Time (Not Done) Nurse Collect Order Detail Not Done: Not Appropriate at this Time (Not Done) Oxygen Order Detail Not Done: Not Appropriate at this Time (Not Done) Order Detail Not Done: Not Appropriate at this Time (Not Done) Prior Valve Replacement Order Detail Not Done: Not Appropriate at this Time (Not Done) Transport Mode Order Detail Not Done: Not Appropriate at this Time (Not Done) Clerical Associate Details Form Not Done (Not Done) 04/23/2023 23:00 EDT Urine Count 2 EA 04/23/2023 22:26 EDT Oxygen Therapy Nasal cannula 0L-6L Oxygen Flow Rate 2 Activity Status ADL Resting Standard Safety ID band on, Call device within [facility] High Risk Safety Room check performed Demonstrates Correct Call Light Use Yes 04/23/2023 20:57 EDT heparin Begin Bag 2.5 mL unit(s) Dextrose 5% Premix Diluent Begin Bag 250 mL mL 04/23/2023 19:00 EDT Cardiac Rhythm Sinus rhythm Monitoring Lead II, V1/MCL1 Alarms On and Functional Yes Heart Rate Alarm Set At - Low 50 Heart Rate Alarm Set At - High 120 Standard Safety ID band on, Call device within [facility] High Risk Safety Room check performed Demonstrates Correct Call Light Use Yes COVID 19 Surge in Effect Yes 04/23/2023 18:35 EDT heparin 13 unit(s)/kg/hr unit(s) Dextrose 5% Premix Diluent Dextrose 5% Premix Diluent mL 04/23/2023 18:28 EDT Temperature Oral 37 DegC Apical Heart Rate 97 bpm Respiratory Rate 22 br/min HI Systolic Blood Pressure Non-Invasive 130 mmHg Diastolic Blood Pressure Non-Invasive 77 mmHg Mean Arterial Pressure (NBP) 90 mmHg Blood Pressure Method Automatic Blood Pressure Location Left arm Blood Pressure Cuff Size Large Reason For Taking VItal Signs Routine Oxygen Therapy Nasal cannula 0L-6L Oxygen Saturation 98 % Oxygen Flow Rate 2 Activity Status ADL Awake Standard Safety ID band on, Call device within reach, Bed in low position, Phone within reach, personal items within reach High Risk Safety Room check performed 04/23/2023 18:18 EDT Antecubital Left 04/22/2023 20 gauge Peripheral IV Activity: Assessed Peripheral IV Dressing Condition: Clean, Dry, Intact Peripheral IV Site Condition: No complications Peripheral IV Equipment: PRN Adaptor Forearm Left 04/23/2023 20 gauge Peripheral IV Activity: Assessed Peripheral IV Dressing Condition: Clean, Dry, Intact Peripheral IV Dressing Activity: Transparent dressing Peripheral IV Line Status/Patency: Continuous infusion Peripheral IV Site Condition: No complications Peripheral IV Equipment: IV Pump 04/23/2023 17:33 EDT Apical Heart Rate 103 bpm HI metoprolol 50 mg mg 04/23/2023 16:59 EDT Heparin dose (APTT) Heparin IV APTT 93.3 seconds HI Lactic Acid Lvl 1.7 mmol/L 04/23/2023 15:49 EDT albuterol 2.5 mg mg 04/23/2023 15:48 EDT Peripheral Pulse Rate 100 bpm Respiratory Rate 22 br/min HI Respirations Labored Breath Sounds Auscultated Anterior only All Lobes Breath Sounds Clear Patient Effort Good Patient Participation in Treatment Cooperative Aerosol Delivery Device Small volume nebulizer Aerosol Treatment Route Aerosol mask Cough and Deep Breathe Done Spontaneous Cough Yes Oxygen Saturation 94 % Respiratory Treatment Charge PRN aerosol treatment Level of Consciousness Alert 04/23/2023 15:45 EDT Primary Pain Intensity 0 Pain Scale Type 0-10 Pain scale Nail Bed Color [place] Capillary Refill < 2 seconds Dorsalis Pedis Pulse, Left 2+ Normal Dorsalis Pedis Pulse, Right 2+ Normal Radial Pulse, Left 2+ Normal Radial Pulse, Right 2+ Normal Leg edema Right Edema Ratin+ trace/2mm Leg edema Left Edema Ratin+ mild/4mm Cardiac Rhythm Sinus rhythm Monitoring Lead II, V1/MCL1 FL Interval 0.18 second(s) QRS Duration 0.06 second(s) QT Interval 0.26 second(s) QTc Interval 0.33 second(s) Alarms On and Functional Yes Heart Rate Alarm Set At - Low 50 Heart Rate Alarm Set At - High 120 Respirations Labored Breath Sounds Auscultated Anterior and posterior All Lobes Breath Sounds Clear Oxygen Therapy Nasal cannula 0L-6L Oxygen Flow Rate 2 Abdomen Description Non-distended Abdomen Palpation Non-Tender Passing Flatus Yes Bowel Sounds All Quadrants Present Urinary Elimination Voiding, no difficulties Facial Movement Symmetric resting/crying All Extremity Description [place] Skin Temperature Warm Temperature All Extremities Warm Skin Description Normal for ethnicity Skin Integrity Intact Skin Turgor Elastic Mucous Membrane Color [place] Mucous Membrane Description Moist Neurological Language Able to speak clearly Neurological Symptoms Fatigue Gait Steady Extremity Movement Equal Swallowing Difficulty None Characteristics of Communication Appropriate Characteristics of Speech Clear Facial Symmetry Symmetric Level of Consciousness Alert Aspiration Risk None Eye Opening Response [place] Spontaneously Best Motor Response Sugar Obeys simple commands Best Verbal Response [place] Oriented Sugar Coma Score 15 SALLY Yes Left Pupil Description Regular Right Pupil Description Regular Left Pupil Reaction Brisk Right Pupil Reaction Brisk Pupil Size, Left 3 mm Pupil Size, Right 3 mm Strength All Extremities Strong Left Upper Extremity Sensation Intact Right Upper Extremity Sensation Intact Left Lower Extremity Sensation Intact Right Lower Extremity Sensation Intact CN V Facial Sensation Light touch equal bilaterally CN VII Facial Expression and Symmetry Facial movement symmetrical CN VIII Hearing Spoken word equally audible left/right CN IX, X Swallowing, Gag Reflex Swallowing present Affect/Behavior Appropriate, Calm, Cooperative Orientation Oriented x 4 Orientation Assessment Oriented x 4 Activity Status ADL Awake Standard Safety ID band on, Call device within reach, Bed in low position High Risk Safety Room located near nursing station Demonstrates Correct Call Light Use Yes COVID 19 Surge in Effect Yes RN Coordination of Care 3pm-11pm 04/23/2023 15:00 EDT Stool Count 0 EA Urine Count 2 EA 04/23/2023 14:46 EDT Temperature Oral 36.7 DegC Apical Heart Rate 99 bpm Respiratory Rate 18 br/min Systolic Blood Pressure Non-Invasive 169 mmHg HI Diastolic Blood Pressure Non-Invasive 86 mmHg Mean Arterial Pressure (NBP) 107 mmHg Blood Pressure Method Automatic Blood Pressure Location Left arm Blood Pressure Cuff Size Medium Reason For Taking VItal Signs Routine Oxygen Therapy Nasal cannula 0L-6L Oxygen Saturation 95 % Oxygen Flow Rate 3 Activity Status ADL Awake Standard Safety ID band on, Call device within reach, Bed in low position High Risk Safety Room check performed Demonstrates Correct Call Light Use Yes 04/23/2023 13:39 EDT Antecubital Left 04/22/2023 20 gauge Peripheral IV Activity: Assessed Peripheral IV Dressing Condition: Clean, Dry, Intact Peripheral IV Dressing Activity: Transparent dressing Peripheral IV Site Condition: No complications Peripheral IV Equipment: IV Pump 04/23/2023 13:31 EDT Respiratory Symptoms Difficulty breathing at rest, Difficulty breathing with activity, Shortness of breath Respirations Hyperpnea Respiratory Pattern Regular Breath Sounds Auscultated Anterior only All Lobes Breath Sounds Clear Abdomen Description Non-distended Abdomen Palpation Non-Tender Passing Flatus Yes Bowel Sounds All Quadrants Present Urinary Elimination Voiding, no difficulties Skin Temperature Warm Skin Description Normal for ethnicity, [place] Skin Integrity Intact Skin Turgor Elastic Mucous Membrane Color [place] Mucous Membrane Description Moist 04/23/2023 13:19 EDT Able To Drink Order Detail Yes Able To Sign Consents Order Detail Yes Code Status Order Detail Full code IV Order Detail Yes Dialysis Schedule Order Detail N/A Has Diabetes Order Detail No Isolation Precautions Order Detail None Nurse Collect Order Detail 0 Oxygen Order Detail Yes Order Detail No Prior Valve Replacement Order Detail No Transport Mode Order Detail MTT with Monitor Clerical Associate Details Form Clerical Associate Details Form 04/23/2023 13:18 EDT CAM Mental Status Change & Fluctuation No CAM Inattention No CAM Disorganized Thinking No CAM Altered Level of Consciousness No Confusion Assessment Method Score Negative BMAT Existing Patient Condition/Safety No order for Strict Bedrest BMAT Level 1: Sit and Shake Sit, side bed/reach midline/shake hands BMAT Level 2: Stretch and Point Seated position, straighten 1 knee; Flex ankle & point toes BMAT Level 3: Stand Stand up w/o assist/Use of assist device BMAT Level 4: Walk March in place; step forward & back each foot BMAT Mobility Level 4 04/23/2023 13:06 EDT Violence Risk Confused No Violence Risk Irritable No Violence Risk Boisterous No Violence Risk Verbal Threats No Violence Risk Physical Threats No Violence Risk Attacking Objects No Violence Risk Predictor Score 0 Violence Risk Intervention None Violence Risk Current Interventions None 04/23/2023 12:58 EDT Temperature Oral 36.5 DegC Apical Heart Rate 93 bpm Respiratory Rate 22 br/min HI Systolic Blood Pressure Non-Invasive 136 mmHg Diastolic Blood Pressure Non-Invasive 87 mmHg Reason For Taking VItal Signs Routine Primary Pain Intensity 0 Pain Scale Type 0-10 Pain scale Dorsalis Pedis Pulse, Left 2+ Normal Dorsalis Pedis Pulse, Right 2+ Normal Radial Pulse, Left 2+ Normal Radial Pulse, Right 2+ Normal Leg edema Right Edema Ratin+ trace/2mm Leg edema Left Edema Ratin+ mild/4mm Alarms On and Functional Yes Heart Rate Alarm Set At - Low 50 Heart Rate Alarm Set At - High 120 Respiratory Symptoms Difficulty breathing with activity Respirations Hyperpnea Breath Sounds Auscultated Anterior and posterior All Lobes Breath Sounds Clear Oxygen Therapy Nasal cannula 0L-6L Oxygen Saturation 97 % Oxygen Flow Rate 3 Abdomen Description Non-distended Abdomen Palpation Non-Tender Facial Movement Symmetric resting/crying Neurological Language Able to speak clearly, Follows simple commands Neurological Symptoms Fatigue Gait Unable to assess Extremity Movement Equal Swallowing Difficulty None Characteristics of Communication Appropriate Characteristics of Speech Clear Facial Symmetry Symmetric Level of Consciousness Alert Aspiration Risk None Eye Opening Response Sugar Spontaneously Best Motor Response Sugar Obeys simple commands Best Verbal Response [place] Oriented Sugar Coma Score 15 SALLY Yes Strength All Extremities Strong Left Upper Extremity Sensation Intact Right Upper Extremity Sensation Intact Left Lower Extremity Sensation Intact Right Lower Extremity Sensation Intact CN V Facial Sensation Light touch equal bilaterally CN VII Facial Expression and Symmetry Facial movement symmetrical CN VIII Hearing Spoken word equally audible left/right CN IX, X Swallowing, Gag Reflex Swallowing present Affect/Behavior Appropriate, Calm, Cooperative Orientation Oriented x 4 Orientation Assessment Oriented x 4 Activity Status ADL Up to bedside commode Standard Safety ID band on, Call device within reach, Bed in low position, Safety level maintained High Risk Safety Room check performed Demonstrates Correct Call Light Use Yes 04/23/2023 12:00 EDT multivitamin with minerals Not Done: Patient Refused (Not Done) 04/23/2023 11:53 EDT VL Venous US/Doppler Both Legs (for DVT)-CV Signed 04/23/2023 10:05 EDT Forearm Left 04/23/2023 20 gauge Peripheral IV Activity: Bedside IV start by ultrasound guidance Peripheral IV Dressing Condition: Clean, Dry, Intact Peripheral IV Dressing Activity: Applied, Transparent dressing Peripheral IV Line Status/Patency: Flushes easily, 10ml normal saline flush, Good blood return Peripheral IV Line Care: Secured with tape Peripheral IV Site Condition: No complications Peripheral IV Equipment: PRN Adaptor 04/23/2023 10:04 EDT Antecubital Left 04/22/2023 20 gauge Peripheral IV Activity: Assessed Peripheral IV Dressing Condition: Clean, Dry, Intact Peripheral IV Dressing Activity: Transparent dressing Peripheral IV Line Status/Patency: Flushes easily, 10ml normal saline flush, Good blood return Peripheral IV Site Condition: No complications Peripheral IV Equipment: PRN Adaptor 04/23/2023 9:51 EDT Pulmonology Consultation Consult Note 04/23/2023 9:43 EDT Apical Heart Rate 102 bpm HI metoprolol 50 mg mg 04/23/2023 9:42 EDT Apical Heart Rate 102 bpm HI Primary Pain Intensity 0 Pain Scale Type 0-10 Pain scale Nail Bed Color [place] Capillary Refill < 2 seconds Heart Sounds ICU S1S2 Heart Rhythm Regular Dorsalis Pedis Pulse, Left 2+ Normal Dorsalis Pedis Pulse, Right 2+ Normal Radial Pulse, Left 2+ Normal Radial Pulse, Right 2+ Normal Leg edema Right Edema Ratin+ trace/2mm Leg edema Left Edema Ratin+ mild/4mm Respiratory Symptoms Difficulty breathing with activity, Shortness of breath Respirations Hyperpnea Respiratory Pattern Regular Breath Sounds Auscultated Anterior and posterior All Lobes Breath Sounds Clear Cough Dry Oxygen Therapy Nasal cannula 0L-6L Oxygen Flow Rate 3 Abdomen Description Non-distended Abdomen Palpation Non-Tender Passing Flatus Yes Bowel Sounds All Quadrants Present Urinary Elimination Voiding, no difficulties Facial Movement Symmetric resting/crying All Extremity Description [place] Skin Temperature Warm Temperature All Extremities Warm Skin Description Normal for ethnicity Skin Integrity Intact Skin Turgor Elastic Mucous Membrane Color [place] Mucous Membrane Description Moist Sensory Perception Daniel Slightly limited Moisture Daniel Rarely moist Activity Daniel Walks occasionally Mobility Daniel No limitations Nutrition Daniel Adequate Friction and Shear Daniel Potential problem Daniel Score 19 Antecubital Left 04/22/2023 20 gauge Peripheral IV Activity: Assessed Peripheral IV Dressing Condition: Clean, Dry, Intact Peripheral IV Dressing Activity: Transparent dressing Peripheral IV Site Condition: No complications Peripheral IV Equipment: IV Pump Neurological Language Able to speak clearly Neurological Symptoms Fatigue Gait Unable to assess Extremity Movement Equal Swallowing Difficulty None Characteristics of Communication Appropriate Characteristics of Speech Clear Facial Symmetry Symmetric Level of Consciousness Alert Aspiration Risk None Eye Opening Response Sugar Spontaneously Best Motor Response [place] Obeys simple commands Best Verbal Response [place] Oriented [place] Coma Score 15 SALLY Yes Strength All Extremities Strong Left Upper Extremity Sensation Intact Right Upper Extremity Sensation Intact Left Lower Extremity Sensation Intact Right Lower Extremity Sensation Intact CN V Facial Sensation Light touch equal bilaterally CN VII Facial Expression and Symmetry Facial movement symmetrical CN VIII Hearing Spoken word equally audible left/right CN IX, X Swallowing, Gag Reflex Swallowing present Rojo Screen Daily History of Fall in Last 3 Months Rojo No Presence of Secondary Diagnosis Rojo Yes Use of Ambulatory Aid Rojo None, bedrest, wheelchair, nurse IV/PRN Adapter Fall Risk Rojo Yes Gait Weak or Impaired Fall Risk Rojo Normal, bedrest, immobile Mental Status Fall Risk Rojo Oriented to own ability Rojo Fall Risk Score 35 Affect/Behavior Appropriate, Calm, Cooperative Orientation Oriented x 4 Orientation Assessment Oriented x 4 04/23/2023 9:37 EDT Echocardiogram, Adult - CV Signed 04/23/2023 9:36 EDT fluticasone nasal 50 mcg mcg hydrochlorothiazide 12.5 mg mg lisinopril 10 mg mg 04/23/2023 9:19 EDT Heparin dose (APTT) Heparin IV APTT 59.6 seconds HI Troponin I High Sensitivity 117.43 ng/L HI 04/23/2023 9:00 EDT TNF-Med Not Done: Pt takes med at home only, per patient (Not Done) TNF-Med Not Done: Pt takes med at home only, per patient (Not Done) 04/23/2023 7:50 EDT heparin 15 unit(s)/kg/hr unit(s) Dextrose 5% Premix Diluent Dextrose 5% Premix Diluent mL 04/23/2023 7:16 EDT Temperature Oral 36.4 DegC Peripheral Pulse Rate 105 bpm HI Respiratory Rate 18 br/min Systolic Blood Pressure Non-Invasive 123 mmHg Diastolic Blood Pressure Non-Invasive 66 mmHg Mean Arterial Pressure (NBP) 84 mmHg Blood Pressure Method Automatic Blood Pressure Location Left arm Blood Pressure Cuff Size Large Oxygen Therapy Nasal cannula 0L-6L Oxygen Saturation 93 % Oxygen Flow Rate 3 Activity Status ADL Repositioned left side Standard Safety ID band on, Call device within reach, Bed in low position, Wheels locked, Upper/Half-Length side-rails up, Phone within reach, Hazards removed from floor, Non-Slip footwear High Risk Safety Room check performed Demonstrates Correct Call Light Use Yes 04/23/2023 6:29 EDT Electrocardiogram - EKG - CV Signed 04/23/2023 5:57 EDT Oxygen Therapy Nasal cannula 0L-6L Oxygen Saturation 94 % Oxygen Activity Oxygen On Oxygen Flow Rate 3 04/23/2023 4:09 EDT Activity Status ADL Bedpan Provided 04/23/2023 3:06 EDT Temperature Oral 36.5 DegC Peripheral Pulse Rate 101 bpm HI Respiratory Rate 20 br/min Systolic Blood Pressure Non-Invasive 150 mmHg HI Diastolic Blood Pressure Non-Invasive 76 mmHg Primary Pain Location Arm Primary Pain Laterality Right Primary Pain Intensity 2 Primary Pain Non-Pharma Intervention Repositioning, Rest Pain Scale Type 0-10 Pain scale Cardiac Rhythm Sinus rhythm Monitoring Lead II, V1/MCL1 Alarms On and Functional Yes Heart Rate Alarm Set At - Low 50 Heart Rate Alarm Set At - High 120 Oxygen Therapy Nasal cannula 0L-6L Oxygen Saturation 91 % LOW Oxygen Flow Rate 3 Activity Status ADL Awake, Repositions self Standard Safety Safety level maintained High Risk Safety Room check performed Demonstrates Correct Call Light Use Yes 04/23/2023 2:16 EDT Heparin dose (APTT) Heparin IV APTT 76.6 seconds HI Troponin I High Sensitivity 204.26 ng/L HI 04/23/2023 0:11 EDT Violence Risk Confused No Violence Risk Irritable No Violence Risk Boisterous No Violence Risk Verbal Threats No Violence Risk Physical Threats No Violence Risk Attacking Objects No Violence Risk Predictor Score 0 Violence Risk Intervention None Violence Risk Current Interventions None Able To Drink Order Detail Yes Able To Sign Consents Order Detail Yes Code Status Order Detail Full code IV Order Detail Yes Dialysis Schedule Order Detail N/A Has Diabetes Order Detail No Isolation Precautions Order Detail None Nurse Collect Order Detail 0 Oxygen Order Detail Yes Order Detail No Prior Valve Replacement Order Detail No Transport Mode Order Detail MTT with Monitor Clerical Associate Details Form Clerical Associate Details Form . Assessment and Plan [place] [employer] (ASA) physical status classification: Class IV, E. Anesthetic Preoperative Plan Premedication: None. Anesthetic technique: General, Local. Induction: intravenously. Maintenance airway: Mask. Postoperative pain management: Per surgeon. Risks discussed: nausea, vomiting, headache, sore throat, dental injury, hypotension, allergic reaction, serious complications. Informed consent: signed by patient. Notes: Patient ate full breakfast 2hrs ago, case is emergent, plan on straight local anesthestic and if needed will convert to GETA.. Beta Marin: Beta Marin Taken Within 24 Hrs: Yes. Digitally Signed by MANUEL DYER MD on 04/24/2023 10:17 AM [facility] [id number] Pulmonary Progress note Date of Service 04/24/23 Subjective I reviewed her CT chest today and she has fairly extensive right mainstem clot burden. Other than some mild tachycardia she is hemodynamically stable on 2 L nasal cannula. Echocardiogram shows EF 70%with increased right ventricular cavity size and reduced systolic function, RVSP 69 mmHg. Dopplers show left lower extremity DVT in left distal femoral vein involving left popliteal vein. Objective Vitals and Measurements T: 36.4 C (Oral) TMIN: 36.4 C (Oral) TMAX: 37 C (Oral) HR: 103(Apical) RR: 23 BP: 136/88 SpO2: 96% Intake and Output 7AM Yesterday to 7AM Today Intake and Output (Last 24 hours) Intake Administration Information 71.06 Output Stool Count 0.00 Urine Count 4.00 Total Summary Total Intake 71.06 Total Output 0.00 Fluid Balance 71.06 Physical Exam General-no acute distress, alert HEENT-normocephalic, atraumatic, extraocular movements intact Pulmonary-clear bilaterally, no wheeze Cardiovascular tachycardic, no appreciable murmurs, gallops or rubs Abdomen-soft, obese, bowel sounds positive Extremities-edema noted, no cyanosis or clubbing, EKOS catheter in right groin Neurologic-grossly nonfocal Weight Current Weight Dosing Weight: 95 kg (04/22/23) Current Weight: 95 kg (04/22/23) Medications Medications (14) Active Scheduled: (7) clobetasol 0.05% topical foam 1 karime, Topical, qDay fluticasone nasal 0.05 mg/inh [place] 50 mcg 1 spray(s), Nostril, each, qDay hydrochlorothiazide 12.5 mg tablet 12.5 mg 1 tab(s), Oral, qDay ivermectin 1% topical cream 1 karime, Topical, qDay lisinopril 10 mg tablet 10 mg 1 tab(s), Oral, qDay metoprolol tartrate 50 mg tablet 50 mg 1 tab(s), Oral, BID multivitamin (Myadec) with minerals Therapeutic Multiple Vitamins with Minerals Tablet 1 tab(s), Oral, qDayM Continuous: (1) heparin 25,000 unit(s) [18 unit(s)/kg/hr] + Dextrose 5% Premix Diluent 250 mL 250 mL, Intravenous, 17.1 mL/hr PRN: (6) acetaminophen 325 mg Tablet 650 mg 2 tab(s), Oral, q4h albuterol 0.083% Soln UD (2.5mg/3 mL) 2.5 mg 3 mL, Inhalation, q4hRT heparin 5,000 units/mL (1 mL) vial 6,650 unit(s) 1.33 mL, IV Push, q6h heparin 5,000 units/mL (1 mL) vial 3,800 unit(s) 0.76 mL, IV Push, q6h hydralazine 20 mg/mL (1mL) vial 10 mg 0.5 mL, IV Push, q6h ondansetron 2 mg/ 1 mL 2 mL INJ 4 mg 2 mL, IV Push, q4h Lab Results No 36 Hour Lab Data EKG Electrocardiogram - Completed -- 04/23/23 7:00:00 EDT, Complete by Nursing Assessment/Plan 1. Extensive right pulmonary embolism with small right upper lobe and left lower lobe emboli 2. Recent car travel from [place] back to [place] 3. 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 Troponins downtrending, lactic acid normal 2. Continue heparin by weight 3. Wean oxygen as tolerated 4. Echo shows increased right ventricular cavity size, reduced systolic function with an RVSP of 69mmHg. Dopplers show evidence for acute on chronic DVT of the left lower extremity involving left distal femoral vein and left popliteal vein 5. Follow-up factor V Leiden assay 6. Reviewed her CTA from and she does have extensive right mainstem clot and with the DVT and evidence for right heart strain on echocardiogram the decision has been made to proceed with EKOS. I discussed the case with Dr. Aldana. Appreciate his assistance in performing this. Time Spent 20 minutes Digitally Signed by PRO PETERS MD on 04/24/2023 01:41 PM [facility] [id number] Note Date of Service 04/23/23 Chief Complaint SOB Subjective Patient was seen and examined, she has SOB at rest, no CP. no Hemoptysis. she has left leg swelling, Doppler confirmed acute DVT in left LE. Objective Vitals and Measurements T: 36.7 C (Oral) TMIN: 36.4 C (Oral) TMAX: 37 C (Oral) HR: 90(Apical) RR: 23 BP: 138/82 SpO2: 99% Intake and Output 7AM Yesterday to 7AM Today Intake and Output (Last 24 hours) Intake Output Stool Count 0.00 Urine Count 2.00 Total Summary Total Intake 0.00 Total Output 0.00 Fluid Balance 0.00 Physical Exam Gen: Appears in respiratory distress. HEENT: No pallor, no icterus, neck supple. Lungs: CTA, good air entry, diminished breath sounds. CVS: S1-S2 regular rate and rhythm, no murmur noted Abd: Nontender, bowel sounds noted, no organomegaly Ext: Pulses symmetric, no edema Skin: No rash, no nodules Neuro: Alert, no focal deficits. Weight Current Weight Dosing Weight: 95 kg (04/22/23) Current Weight: 95 kg (04/22/23) Medications Medications (14) Active Scheduled: (7) clobetasol 0.05% topical foam 1 karime, Topical, qDay fluticasone nasal 0.05 mg/inh [place] 50 mcg 1 spray(s), Nostril, each, qDay hydrochlorothiazide 12.5 mg tablet 12.5 mg 1 tab(s), Oral, qDay ivermectin 1% topical cream 1 karime, Topical, qDay lisinopril 10 mg tablet 10 mg 1 tab(s), Oral, qDay metoprolol tartrate 50 mg tablet 50 mg 1 tab(s), Oral, BID multivitamin (Myadec) with minerals Therapeutic Multiple Vitamins with Minerals Tablet 1 tab(s), Oral, qDayM Continuous: (1) heparin 25,000 unit(s) [18 unit(s)/kg/hr] + Dextrose 5% Premix Diluent 250 mL 250 mL, Intravenous, 17.1 mL/hr PRN: (6) acetaminophen 325 mg Tablet 650 mg 2 tab(s), Oral, q4h albuterol 0.083% Soln UD (2.5mg/3 mL) 2.5 mg 3 mL, Inhalation, q4hRT heparin 5,000 units/mL (1 mL) vial 6,650 unit(s) 1.33 mL, IV Push, q6h heparin 5,000 units/mL (1 mL) vial 3,800 unit(s) 0.76 mL, IV Push, q6h hydralazine 20 mg/mL (1mL) vial 10 mg 0.5 mL, IV Push, q6h ondansetron 2 mg/ 1 mL 2 mL INJ 4 mg 2 mL, IV Push, q4h Lab Results 04/22 19:25 WBC: 10.8 Hgb: 13.9 Hct: 40.6 Platelet: 181 Neutrophil %: 80.8 H Glucose Level: 127 H Sodium Level: 142 Potassium Level: 4.0 BUN: 17.0 Creatinine Lvl (s): 0.69 EKG Electrocardiogram - Completed -- 04/23/23 7:00:00 EDT, Complete by Nursing Assessment/Plan Extensive right pulmonary artery embolus, bilateral PE with acute hypoxia: 2D echo showed The cavity size is increased. Systolic function is reduced. Systolic pressure is severely increased. The RV systolic pressure by Doppler is 69 mm Hg. she still has SOB at rest. continue weight based heparin. Elevated troponin: Most likely secondary to PE, EKG did not show any ischemic changes for now, I will cycle troponin every 6 hours x3 troponin is trending down. Elevated BNP T: No signs of volume overload Hypokalemia: replaced. Hypertension: bp in control Digitally Signed by DAISHA WOODWARD MD on 04/24/2023 12:02 AM [facility] [id number] Pulmonary Consult note Date of Service 04/23/2023 Reason for Consultation pulmonary embolism, hypoxemia Referring Physician Hospitalist History of Present Illness Ms. Tuttle is a 67-year-old female past medical history hypertension who recently traveled by car to [place] and returned last Tuesday then developed lower extremity edema followed by shortness of breath with chest discomfort, which she describes as heaviness. Symptoms got progressively worse with worsening edema. There is a family history of DVT in her sister. She presented to the emergency d epartment at , was found to be 85% on room air. CTA showed extensive right pulmonary emboli with small right upper lobe and left lower lobe branch emboli. Her troponin was 116, BNP is 6059. She wasstarted on heparin by weight and admitted to the hospital. Pulmonary is consulted for her pulmonaryembolism and hypoxemia. She is currently on 3 L nasal cannula. Review of Systems Constitutional-no fevers, chills, night sweats, weight loss or gain HEENT-no runny nose or sore throat Cardiovascular-she describes chest heaviness but denies palpitations or orthopnea Pulmonary-she had a dry cough with shortness of breath and dyspnea on exertion, no wheeze Gastrointestinal-no nausea, vomiting, constipation or diarrhea noted Musculoskeletal no joint pain, redness, stiffness however she has had lower extremity swelling Neurological-no numbness, tingling, weakness Skin - no itching, rashes or hives All other components of review of systems have been reviewed and are negative Physical Exam Vitals and Measurements T: 36.4 C (Oral) TMIN: 36.3 C (Oral) TMAX: 36.6 C (Oral) HR: 102(Apical) RR: 18 BP: 123/66 SpO2: 93% HT: 160 cm WT: 95 kg WT: 95 kg BMI: 37.11 Weight Current Weight Dosing Weight: 95 kg (04/22/23) Current Weight: 95 kg (04/22/23) General-no acute distress, alert HEENT-normocephalic, atraumatic, extraocular movements intact Pulmonary-clear bilaterally, no wheeze Cardiovascular tachycardic, no appreciable murmurs, gallops or rubs Abdomen-soft, obese, bowel sounds positive Extremities-edema noted, no cyanosis or clubbing Neurologic-grossly nonfocal Lab Results 04/22 19:25 WBC: 10.8 Hgb: 13.9 Hct: 40.6 Platelet: 181 Neutrophil %: 80.8 H Glucose Level: 127 H Sodium Level: 142 Potassium Level: 4.0 BUN: 17.0 Creatinine Lvl (s): 0.69 Assessment/Plan 1. Extensive right pulmonary embolism with small right upper lobe and left lower lobe emboli 2. Recent car travel from [place] back to [place] 3. 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 Trend troponins, check lactic acid 2. Continue heparin by weight 3. Wean oxygen as tolerated 4. Follow-up echocardiogram. Dopplers show evidence for acute on chronic DVT of the left lower extremity involving left distal femoral vein and left popliteal vein 5. Check factor V Leiden assay 6. I have asked for her disc from [facility] to be uploaded to our system to be able to review herimaging Problem List/Past Medical History Ongoing No qualifying data Historical No qualifying data Procedure/Surgical History No qualifying data available. Medications Inpatient albuterol 2.5 mg/3 mL (0.083%) inhalation solution, 2.5 mg= 3 mL, Inhalation, q4hRT, PRN Cerovite Advanced Formula, 1 tab(s), Oral, qDayM clobetasol 0.05% topical foam, 1 karime, Topical, qDay Flonase 50 mcg/inh nasal spray, 50 mcg= 1 spray(s), Nostril, each, qDay Heparin for IV 25,000 unit(s) [18 unit(s)/kg/hr] + Dextrose 5% Premix Diluent 250 mL Heparin HBW Bolus 5000 units/mL, 6650 unit(s)= 1.33 mL, 70 unit(s)/kg, IV Push, q6h, PRN Heparin HBW Bolus 5000 units/mL, 3800 unit(s)= 0.76 mL, 40 unit(s)/kg, IV Push, q6h, PRN hydrALAZINE, 10 mg= 0.5 mL, IV Push, q6h, PRN hydroCHLOROthiazide, 12.5 mg= 1 tab(s), Oral, qDay ivermectin 1% topical cream, 1 karime, Topical, qDay metoprolol tartrate 50 mg oral tablet, 50 mg= 1 tab(s), Oral, BID Tylenol, 650 mg= 2 tab(s), Oral, q4h, PRN Zestril, 10 mg= 1 tab(s), Oral, qDay Zofran, 4 mg= 2 mL, IV Push, q4h, PRN Home CholestOff oral caplet, Oral, qDay clobetasol 0.05% topical foam, 1 karime, Topical, qDay Flonase 50 mcg/inh nasal spray, 1 spray(s), Nostril, each, qDay hydrochlorothiazide-lisinopril 12.5 mg-10 mg oral tablet, 1 tab(s), Oral, Daily ivermectin 1% topical cream, 1 karime, Topical, qDay meclizine 25 mg oral tablet, 25 mg= 1 tab(s), Oral, QID, PRN metoprolol tartrate 50 mg oral tablet, 50 mg= 1 tab(s), Oral, BID Multiple Vitamins oral capsule, 1 cap(s), Oral, Daily TNF-Med Allergies NKA Social History She is a lifelong non-smoker. 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 Digitally Signed by PRO PETERS MD on 04/23/2023 12:20 PM [facility] [id number] History and physical note Date of Service 04/22/2023 Chief Complaint Shortness of breath, lower extremities pain History of Present Illness This is a 67-year-old female who had a past medical history of hypertension who came to the ER complaining of worsening shortness of breath. The patient was recently in [facility] and traveled by car for too long days without. According to her, after arrival she started complaining of pain and swelling in the lower extremities, 3 days ago the patient started experiencing shortness of breath which was getting worse specially for the last 2 days, the patient said that her shortness of breath was worse on minimal activities and even at rest, she also mentioned some chest discomfort without actual pain, dry cough, no sputum, she denies any fever or chills, no palpitation, no abdominal pain, no nausea or vomiting, no diarrhea or constipation. The patient denies any history of previous DVT or PE, her sister had a history of DVT, she is not asmoker, she is not on any hormonal medications, she is up-to-date on her screenings which were negative according to her, she had a history of basal skin carcinoma which was removed. In the ER the patient's vitals were stable except for hypoxia her oxygen saturation was 85% on roomair which improved to 94% on 2 L of nasal cannula, chest x-ray was normal, CT angio of the chest showed extensive right pulmonary artery embolus with a small right upper and left lower lobe branch emboli. Blood test showed elevated troponin of 116 and elevated BNP T, EKG did not show any signs of acute ischemia no ST elevation or depression, nonspecific T wave changes. The patient was started on heparin by weight Review of Systems General: The patient denies any fever or chills, no change in weight or appetite Eyes: No blurry vision no redness or pain Ears: No decreased hearing or ringing ears Nose: No runny nose or stuffiness Mouth: No dry mouth or sore throat Neck: No pain or stiffness Respiratory system: As mentioned in the history before Cardiovascular system: No chest pain or palpitation Gastrointestinal system: No abdominal pain, no nausea or vomiting, no diarrhea or constipation Genitourinary system: No urgency or frequency, no burning or pain Neurologic system: No headache, no seizure-like activity, no weakness or numbness Review of other system is negative except that mentioned in the history before Physical Exam Vitals and Measurements T: 36.3 C (Oral) HR: 107(Apical) RR: 20 BP: 160/112 SpO2: 98% HT: 160 cm WT: 95 kg BMI: 37.11 Weight Dosing Weight: 95 kg (04/22/23) In general: The patient was seen at bedside she seems comfortable in no acute distress HEENT: Normocephalic/atraumatic, PERRLA/EOMI Neck: Supple, no thyromegaly, no JVD Heart: Regular rate and rhythm, S1-S2 is normal Lungs: Clear to auscultation bilaterally no wheezing or crackles Abdomen: Soft, nontender distended bowel sounds are heard in all quadrants Lower extremities: Left lower extremity is slightly swollen comparing to the right lower extremity,no pitting edema, no redness, pulse palpable bilaterally Neurologic exam: The patient is awake alert oriented x3, no focal neurologic deficits Lab Results Troponin: 116, white blood count: 10.3, hemoglobin: 14.2, hematocrit: 41.4, platelet: 232, sodium: 142, potassium: 3.3, glucose: 171, BUN: 18, creatinine: 1.01, AST: 16, alkaline phosphatase: 116, calcium: 8.7, D-dimer: 1029, BMP: 5643 Imaging Results and Diagnostics CT angio of the chest: Extensive right pulmonary artery embolus, small right upper and left lower lobe branch emboli Chest x-ray: No acute disease, mild cardiomegaly EKG Sinus rhythm, nonspecific T wave changes, no ST elevation or depression Assessment/Plan 1. Extensive right pulmonary artery embolus, bilateral PE: The patient came to the hospital complaining of worsening shortness of breath for the last few days after a long trip for 2 days, with lowerextremities pain, was found to be hypoxic, CT angio of the chest showed extensive pulmonary artery embolus on the right side, with bilateral small lower branch emboli, the patient was started on oxygen supplement through nasal cannula, as well as heparin by weight, I did discuss with the the results of the blood test as well as the imaging and the plan with the patient at bedside, we will admit the patient keeping her on oxygen per nasal cannula to keep her oxygen saturation more than 92%, continue heparin by weight, I will order for 2D echo and Doppler of the lower extremities, consult pulmonary for further recommendations 2. Hypoxia: Secondary to 1 the treatment as mentioned in 1 3. Elevated troponin: Most likely secondary to PE, EKG did not show any ischemic changes for now, Iwill cycle troponins every 6 hours x3 and repeat EKG in a.m. 4. Elevated BNP T: No signs of volume overload, will cycle troponins x3 and order for 2D echo as mentioned before 5. Hypokalemia: Potassium 3.3, peaked labs stat and if potassium is low we will replace with KCl 6. Hypertension: We will continue home medication at the same doses and monitor blood pressure closely I add hydralazine 10 mg IV every 6 hours as needed for systolic blood pressure more than 180 7. DVT prophylaxis: The patient is on heparin by weight CODE STATUS is full code Problem List/Past Medical History Hypertension Procedure/Surgical History Cholecystectomy Medications Home Medications (9) Active CholestOff oral caplet , Oral, qDay clobetasol 0.05% topical foam 1 karime, Topical, qDay Flonase 50 mcg/inh nasal spray 1 spray(s), Nostril, each, qDay hydrochlorothiazide-lisinopril 12.5 mg-10 mg oral tablet 1 tab(s), Oral, Daily ivermectin 1% topical cream 1 karime, Topical, qDay meclizine 25 mg oral tablet 25 mg = 1 tab(s), PRN, Oral, QID metoprolol tartrate 50 mg oral tablet 50 mg = 1 tab(s), Oral, BID Multiple Vitamins oral capsule 1 cap(s), Oral, Daily TNF-Med Allergies NKA Social History The patient denies any history of smoking, no history of alcohol abuse or drug abuse Family History Rheumatoid arthritis in the sister, blood clots also in her sister Immunizations No qualifying data available. Code Status Code Status - Ordered -- 04/22/23 18:21:00 EDT, Full Code, Constant Order Digitally Signed by ESTEBAN ENGLAND MD on 04/22/2023 06:37 PM [id number] History and physical note Date of Service 04/22/2023 Chief Complaint Shortness of breath, lower extremities pain History of Present Illness This is a 67-year-old female who had a past medical history of hypertension who came to the ER complaining of worsening shortness of breath. The patient was recently in [facility] and traveled by car for too long days without. According to her, after arrival she started complaining of pain and swelling in the lower extremities, 3 days ago the patient started experiencing shortness of breath which was getting worse specially for the last 2 days, the patient said that her shortness of breath was worse on minimal activities and even at rest, she also mentioned some chest discomfort without actual pain, dry cough, no sputum, she denies any fever or chills, no palpitation, no abdominal pain, no nausea or vomiting, no diarrhea or constipation. The patient denies any history of previous DVT or PE, her sister had a history of DVT, she is not asmoker, she is not on any hormonal medications, she is up-to-date on her screenings which were negative according to her, she had a history of basal skin carcinoma which was removed. In the ER the patient's vitals were stable except for hypoxia her oxygen saturation was 85% on roomair which improved to 94% on 2 L of nasal cannula, chest x-ray was normal, CT angio of the chest showed extensive right pulmonary artery embolus with a small right upper and left lower lobe branch emboli. Blood test showed elevated troponin of 116 and elevated BNP T, EKG did not show any signs of acute ischemia no ST elevation or depression, nonspecific T wave changes. The patient was started on heparin by weight Review of Systems General: The patient denies any fever or chills, no change in weight or appetite Eyes: No blurry vision no redness or pain Ears: No decreased hearing or ringing ears Nose: No runny nose or stuffiness Mouth: No dry mouth or sore throat Neck: No pain or stiffness Respiratory system: As mentioned in the history before Cardiovascular system: No chest pain or palpitation Gastrointestinal system: No abdominal pain, no nausea or vomiting, no diarrhea or constipation Genitourinary system: No urgency or frequency, no burning or pain Neurologic system: No headache, no seizure-like activity, no weakness or numbness Review of other system is negative except that mentioned in the history before Physical Exam Vitals and Measurements T: 36.3 C (Oral) HR: 107(Apical) RR: 20 BP: 160/112 SpO2: 98% HT: 160 cm WT: 95 kg BMI: 37.11 Weight Dosing Weight: 95 kg (04/22/23) In general: The patient was seen at bedside she seems comfortable in no acute distress HEENT: Normocephalic/atraumatic, PERRLA/EOMI Neck: Supple, no thyromegaly, no JVD Heart: Regular rate and rhythm, S1-S2 is normal Lungs: Clear to auscultation bilaterally no wheezing or crackles Abdomen: Soft, nontender distended bowel sounds are heard in all quadrants Lower extremities: Left lower extremity is slightly swollen comparing to the right lower extremity,no pitting edema, no redness, pulse palpable bilaterally Neurologic exam: The patient is awake alert oriented x3, no focal neurologic deficits Lab Results Troponin: 116, white blood count: 10.3, hemoglobin: 14.2, hematocrit: 41.4, platelet: 232, sodium: 142, potassium: 3.3, glucose: 171, BUN: 18, creatinine: 1.01, AST: 16, alkaline phosphatase: 116, calcium: 8.7, D-dimer: 1029, BMP: 5643 Imaging Results and Diagnostics CT angio of the chest: Extensive right pulmonary artery embolus, small right upper and left lower lobe branch emboli Chest x-ray: No acute disease, mild cardiomegaly EKG Sinus rhythm, nonspecific T wave changes, no ST elevation or depression Assessment/Plan 1. Extensive right pulmonary artery embolus, bilateral PE: The patient came to the hospital complaining of worsening shortness of breath for the last few days after a long trip for 2 days, with lowerextremities pain, was found to be hypoxic, CT angio of the chest showed extensive pulmonary artery embolus on the right side, with bilateral small lower branch emboli, the patient was started on oxygen supplement through nasal cannula, as well as heparin by weight, I did discuss with the the results of the blood test as well as the imaging and the plan with the patient at bedside, we will admit the patient keeping her on oxygen per nasal cannula to keep her oxygen saturation more than 92%, continue heparin by weight, I will order for 2D echo and Doppler of the lower extremities, consult pulmonary for further recommendations 2. Hypoxia: Secondary to 1 the treatment as mentioned in 1 3. Elevated troponin: Most likely secondary to PE, EKG did not show any ischemic changes for now, Iwill cycle troponins every 6 hours x3 and repeat EKG in a.m. 4. Elevated BNP T: No signs of volume overload, will cycle troponins x3 and order for 2D echo as mentioned before 5. Hypokalemia: Potassium 3.3, peaked labs stat and if potassium is low we will replace with KCl 6. Hypertension: We will continue home medication at the same doses and monitor blood pressure closely I add hydralazine 10 mg IV every 6 hours as needed for systolic blood pressure more than 180 7. DVT prophylaxis: The patient is on heparin by weight CODE STATUS is full code Problem List/Past Medical History Hypertension Procedure/Surgical History Cholecystectomy Medications Home Medications (9) Active CholestOff oral caplet , Oral, qDay clobetasol 0.05% topical foam 1 karime, Topical, qDay Flonase 50 mcg/inh nasal spray 1 spray(s), Nostril, each, qDay hydrochlorothiazide-lisinopril 12.5 mg-10 mg oral tablet 1 tab(s), Oral, Daily ivermectin 1% topical cream 1 karime, Topical, qDay meclizine 25 mg oral tablet 25 mg = 1 tab(s), PRN, Oral, QID metoprolol tartrate 50 mg oral tablet 50 mg = 1 tab(s), Oral, BID Multiple Vitamins oral capsule 1 cap(s), Oral, Daily TNF-Med Allergies NKA Social History The patient denies any history of smoking, no history of alcohol abuse or drug abuse Family History Rheumatoid arthritis in the sister, blood clots also in her sister Immunizations No qualifying data available. Code Status Code Status - Ordered -- 04/22/23 18:21:00 EDT, Full Code, Constant Order Digitally Signed by ESTEBAN ENGLAND MD on 04/22/2023 06:37 PM [facility] [id number] History and physical note Date of Service 04/22/2023 Chief Complaint Shortness of breath, lower extremities pain History of Present Illness This is a 67-year-old female who had a past medical history of hypertension who came to the ER complaining of worsening shortness of breath. The patient was recently in [facility] and traveled by car for too long days without. According to her, after arrival she started complaining of pain and swelling in the lower extremities, 3 days ago the patient started experiencing shortness of breath which was getting worse specially for the last 2 days, the patient said that her shortness of breath was worse on minimal activities and even at rest, she also mentioned some chest discomfort without actual pain, dry cough, no sputum, she denies any fever or chills, no palpitation, no abdominal pain, no nausea or vomiting, no diarrhea or constipation. The patient denies any history of previous DVT or PE, her sister had a history of DVT, she is not asmoker, she is not on any hormonal medications, she is up-to-date on her screenings which were negative according to her, she had a history of basal skin carcinoma which was removed. In the ER the patient's vitals were stable except for hypoxia her oxygen saturation was 85% on roomair which improved to 94% on 2 L of nasal cannula, chest x-ray was normal, CT angio of the chest showed extensive right pulmonary artery embolus with a small right upper and left lower lobe branch emboli. Blood test showed elevated troponin of 116 and elevated BNP T, EKG did not show any signs of acute ischemia no ST elevation or depression, nonspecific T wave changes. The patient was started on heparin by weight Review of Systems General: The patient denies any fever or chills, no change in weight or appetite Eyes: No blurry vision no redness or pain Ears: No decreased hearing or ringing ears Nose: No runny nose or stuffiness Mouth: No dry mouth or sore throat Neck: No pain or stiffness Respiratory system: As mentioned in the history before Cardiovascular system: No chest pain or palpitation Gastrointestinal system: No abdominal pain, no nausea or vomiting, no diarrhea or constipation Genitourinary system: No urgency or frequency, no burning or pain Neurologic system: No headache, no seizure-like activity, no weakness or numbness Review of other system is negative except that mentioned in the history before Physical Exam Vitals and Measurements T: 36.3 C (Oral) HR: 107(Apical) RR: 20 BP: 160/112 SpO2: 98% HT: 160 cm WT: 95 kg BMI: 37.11 Weight Dosing Weight: 95 kg (04/22/23) In general: The patient was seen at bedside she seems comfortable in no acute distress HEENT: Normocephalic/atraumatic, PERRLA/EOMI Neck: Supple, no thyromegaly, no JVD Heart: Regular rate and rhythm, S1-S2 is normal Lungs: Clear to auscultation bilaterally no wheezing or crackles Abdomen: Soft, nontender distended bowel sounds are heard in all quadrants Lower extremities: Left lower extremity is slightly swollen comparing to the right lower extremity,no pitting edema, no redness, pulse palpable bilaterally Neurologic exam: The patient is awake alert oriented x3, no focal neurologic deficits Lab Results Troponin: 116, white blood count: 10.3, hemoglobin: 14.2, hematocrit: 41.4, platelet: 232, sodium: 142, potassium: 3.3, glucose: 171, BUN: 18, creatinine: 1.01, AST: 16, alkaline phosphatase: 116, calcium: 8.7, D-dimer: 1029, BMP: 5643 Imaging Results and Diagnostics CT angio of the chest: Extensive right pulmonary artery embolus, small right upper and left lower lobe branch emboli Chest x-ray: No acute disease, mild cardiomegaly EKG Sinus rhythm, nonspecific T wave changes, no ST elevation or depression Assessment/Plan 1. Extensive right pulmonary artery embolus, bilateral PE: The patient came to the hospital complaining of worsening shortness of breath for the last few days after a long trip for 2 days, with lowerextremities pain, was found to be hypoxic, CT angio of the chest showed extensive pulmonary artery embolus on the right side, with bilateral small lower branch emboli, the patient was started on oxygen supplement through nasal cannula, as well as heparin by weight, I did discuss with the the results of the blood test as well as the imaging and the plan with the patient at bedside, we will admit the patient keeping her on oxygen per nasal cannula to keep her oxygen saturation more than 92%, continue heparin by weight, I will order for 2D echo and Doppler of the lower extremities, consult pulmonary for further recommendations 2. Hypoxia: Secondary to 1 the treatment as mentioned in 1 3. Elevated troponin: Most likely secondary to PE, EKG did not show any ischemic changes for now, Iwill cycle troponins every 6 hours x3 and repeat EKG in a.m. 4. Elevated BNP T: No signs of volume overload, will cycle troponins x3 and order for 2D echo as mentioned before 5. Hypokalemia: Potassium 3.3, peaked labs stat and if potassium is low we will replace with KCl 6. Hypertension: We will continue home medication at the same doses and monitor blood pressure closely I add hydralazine 10 mg IV every 6 hours as needed for systolic blood pressure more than 180 7. DVT prophylaxis: The patient is on heparin by weight CODE STATUS is full code Problem List/Past Medical History Hypertension Procedure/Surgical History Cholecystectomy Medications Home Medications (9) Active CholestOff oral caplet , Oral, qDay clobetasol 0.05% topical foam 1 karime, Topical, qDay Flonase 50 mcg/inh nasal spray 1 spray(s), Nostril, each, qDay hydrochlorothiazide-lisinopril 12.5 mg-10 mg oral tablet 1 tab(s), Oral, Daily ivermectin 1% topical cream 1 karime, Topical, qDay meclizine 25 mg oral tablet 25 mg = 1 tab(s), PRN, Oral, QID metoprolol tartrate 50 mg oral tablet 50 mg = 1 tab(s), Oral, BID Multiple Vitamins oral capsule 1 cap(s), Oral, Daily TNF-Med Allergies NKA Social History The patient denies any history of smoking, no history of alcohol abuse or drug abuse Family History Rheumatoid arthritis in the sister, blood clots also in her sister Immunizations No qualifying data available. Code Status Code Status - Ordered -- 04/22/23 18:21:00 EDT, Full Code, Constant Order Digitally Signed by ESTEBAN ENGLAND MD on 04/22/2023 06:37 PM [facility] [id number] Evaluation + Plan noteExtracted from: Title:History and Physical Author:ESTEBAN ENGLAND Date:04/22/23 1. Extensive right pulmonary artery embolus, bilateral PE: The patient came to the hospital complaining of worsening shortness of breath for the last few days after a long trip for 2 days, with lower extremities pain, was found to be hypoxic, CT angio of the chest showed extensive pulmonary artery embolus on the right side, with bilateral small lower branch emboli, the patient was started on oxygen supplement through nasal cannula, as well as heparin by weight, I did discuss with the the results of the blood test as well as the imaging and the plan with the patient at bedside, we will admit the patient keeping her on oxygen per nasal cannula to keep her oxygen saturation more than 92%, continue heparin by weight, I will order for 2D echo and Doppler of the lower extremities, consult pulmonary for further recommendations 2. Hypoxia: Secondary to 1 the treatment as mentioned in 1 3. Elevated troponin: Most likely secondary to PE, EKG did not show any ischemic changes for now, I will cycle troponins every 6 hours x3 and repeat EKG in a.m. 4. Elevated BNP T: No signs of volume overload, will cycle troponins x3 and order for 2D echo as mentioned before 5. Hypokalemia: Potassium 3.3, peaked labs stat and if potassium is low we will replace with KCl 6. Hypertension: We will continue home medication at the same doses and monitor blood pressure closely I add hydralazine 10 mg IV every 6 hours as needed for systolic blood pressure more than 180 7. DVT prophylaxis: The patient is on heparin by weight CODE STATUS is full code Addendum by ESTEBAN ENGLAND MD on April 22, 2023 18:56:53 EDT the patient was able to move around with oxygen and mentain her o2 sat above 90%, ok to move prn with patient assistant if needed Addendum by ESTEBAN ENGLAND MD on April 22, 2023 19:00:52 EDT patient is short of breath will keep her bed rest and reevaluate in [facility] 02-08-2023 NoteHNO ID: [id number] Author: Maria Elena Leal RN Service: ? Author Type: Registered Nurse Type: Nursing Progress Note Filed: 12/15/2022 11:35 AM Note Text: Dr. Fenton notified of BP of 205/89. Maria Elena Leal RNUniversity [facility]02-08-2023 NoteHNO ID: [id number] Author: Maria Elena Leal RN Service: ? Author Type: Registered Nurse Type: Nursing Progress Note Filed: 12/15/2022 10:53 AM Note Text: Dr. Fenton notified of elevated BP of 200/84. Maria Elena Leal RNUniversity [facility]als [facility]01-11-2023 NoteHNO ID: [id number] Author: Thelma Fenton MD Service: ? Author Type: Physician Type: Progress Notes Filed: 11/20/2022 2:21 PM Note Text: HISTORY AND PHYSICAL sAhley Tuttle 1955 REFERRING PHYSICIAN: Robert Fong MD CHIEF COMPLAINT: Colon Consult HPI: The patient is a 67 year old female referred for endoscopy. Ashley notes no colon complaints. The patient denies blood in stools, denies abdominal pain, and denies changes in bowel habits. The patient states that her father was diagnosed with colon cancer in his 50s. The patient has had previous colonoscopy in 2019, she states that she has had colon polyps in past. Patient has hypertension - taking lisinopril and metoprolol for this. Her BMI is 36. PAST MEDICAL HISTORY Diagnosis Date Diarrhea Hypertension Internal hemorrhoids without mention of complication PAST SURGICAL HISTORY Procedure Laterality Date CHOLECYSTECTOMY Cholecystectomy COLONOSCOPY FLX DX W/COLLJ SPEC WHEN PFRMD 09/05/2001 Colonoscopy COLONOSCOPY FLX DX W/COLLJ SPEC WHEN PFRMD 09/13/2006 Colonoscopy COLONOSCOPY FLX DX W/COLLJ SPEC WHEN PFRMD 02/20/13 Colonoscopy COLONOSCOPY FLX DX W/COLLJ SPEC WHEN PFRMD 10/23/2019 Colonoscopy PAST SURGICAL HISTORY OF 06/2008 vein stripping and laser right leg TONSILLECTOMY PRIMARY/SECONDARY Tonsillectomy Current Outpatient Medications Medication Sig metoprolol tartrate, short acting, (LOPRESSOR) 50 mg tablet Take 50 mg by mouth twice daily. Clobetasol Propionate (TEMOVATE) 0.05 % external solution once daily. fluticasone propionate (FLONASE NASAL) Use in the nose once daily. ivermectin/metronidazole/niaci (MIPKZGAZDH-GIGNVCKFXZSM-TSFNDF TOPICAL) Apply to affected area as needed. phytosterol/pantethine (CHOLESTOFF COMPLETE ORAL) Take by mouth once daily. meclizine (ANTIVERT) 25 mg tab Take 25 mg by mouth three times daily as needed (dizziness). lisinopril-hydrochlorothiazide 10-12.5 mg per tablet Take 1 tablet by mouth once daily. peg 3350-Electrolytes (GOLYTELY) 236-22.74-6.74 -5.86 gram suspension Take 4,000 mL by mouth one time only for 1 dose. Refer to printed prep instructions from your provider. metoprolol succinate XL, long acting, 25 mg 24 hr tablet Take 25 mg by mouth twice daily. (Patient not taking: Reported on 11/17/2022) ALLERGIES: Patient has no known allergies. PERSONAL HISTORY: Social History Tobacco Use Smoking status: Never Smokeless tobacco: Never Substance Use Topics Alcohol use: No Drug use: No FAMILY HISTORY Problem Relation Age of Onset Colon Cancer Mother The review of systems data was entered by the nurse and reviewed by ny Nursing Notes: Gila Allen 11/17/2022 2:51 PM Signed REVIEW OF SYSTEMS: General: The patient denies fatigue, denies weight loss, denies weight gain, denies feeling hot, and denies feelings of cold. Eyes: The patient denies glaucoma, denies eye injury/surgery, does not wear glasses or contacts. Ear/Nose/Throat: The patient denies allergies, denies hayfever, denies ear infections, and denies bloody noses. Cardiovascular: The patient denies chest pain, denies heart disease, NOTES high blood pressure,denies cardiac stent, denies prior heart attack, denies irregular heart beat, denies high cholesterol, denies poor circulation, denies heart failure, other cardiac issues, denies claudication, denies cold feet, denies peripheral arterial stent. Respiratory: The patient denies tuberculosis, denies pneumonia, denies frequent cough, denies pulmonary embolism, denies shortness of breath, and denies coughing up blood. Gastrointestinal: The patient denies difficulty swallowing, denies acid reflux, denies ulcers, denies vomiting, denies jaundice/hepatitis, denies gallbladder problems, denies black or tarry stools, denies hemorrhoids, denies bleeding from rectum, denies diverticulitis, denies constipation, denies diarrhea, denies loss of stool control, and denies hernias. Kidney/Bladder: The patient denies kidney stones, denies urine infections, and denies bloody urine. Skin: The patient NOTES a history of skin cancer, denies bleeding/changing moles, and denies a history of skin rash. Neurologic: The patient denies a history of epilepsy/convulsions, denies headaches, denies head/spinal injuries, and denies stroke/TIA. Psychiatric: The patient denies psychiatric medications, denies depression, and denies voices, denies substance abuse. Endocrine: The patient denies thyroid disorders, denies diabetes, and denies hormonal problems. Hematologic: The patient denies a history of bruising, denies bleeding, and denies anemia, denies blood clots. Infections: The patient NOTES a history of measles and mumps, denies rheumatic fever, and denies sexually transmitted diseases. Musculoskeletal: The patient denies back pain/injury, denies back problems, denies sciatica, denies knee/foot trouble, denies arthritis (more content not included)...[facility]01-11-2023 History of Present illness Narrative* Thelma Fenton MD - 11/17/2022 5:59 PM EST HISTORY AND PHYSICAL Ashley Tuttle 1955 REFERRING PHYSICIAN: Robert Fong MD CHIEF COMPLAINT: Colon Consult HPI: The patient is a 67 year old female referred for endoscopy. Ashley notes no colon complaints. The patient denies blood in stools, denies abdominal pain, and denies changes in bowel habits. The patient states that her father was diagnosed with colon cancer in his 50s. The patient has had previous colonoscopy in 2019, she states that she has had colon polyps in past. Patient has hypertension - taking lisinopril and metoprolol for this. Her BMI is 36. PAST MEDICAL HISTORY Diagnosis Date Diarrhea Hypertension Internal hemorrhoids without mention of complication PAST SURGICAL HISTORY Procedure Laterality Date CHOLECYSTECTOMY Cholecystectomy COLONOSCOPY FLX DX W/COLLJ SPEC WHEN PFRMD 09/05/2001 Colonoscopy COLONOSCOPY FLX DX W/COLLJ SPEC WHEN PFRMD 09/13/2006 Colonoscopy COLONOSCOPY FLX DX W/COLLJ SPEC WHEN PFRMD 02/20/13 Colonoscopy COLONOSCOPY FLX DX W/COLLJ SPEC WHEN PFRMD 10/23/2019 Colonoscopy PAST SURGICAL HISTORY OF 06/2008 vein stripping and laser right leg TONSILLECTOMY PRIMARY/SECONDARY <AGE 11 Tonsillectomy Current Outpatient Medications Medication Sig metoprolol tartrate, short acting, (LOPRESSOR) 50 mg tablet Take 50 mg by mouth twice daily. Clobetasol Propionate (TEMOVATE) 0.05 % external solution once daily. fluticasone propionate (FLONASE NASAL) Use in the nose once daily. ivermectin/metronidazole/niaci (ELAKRHUXCB-WAVGWUFXSCBQ-CUKYKT TOPICAL) Apply to affected area as needed. phytosterol/pantethine (CHOLESTOFF COMPLETE ORAL) Take by mouth once daily. meclizine (ANTIVERT) 25 mg tab Take 25 mg by mouth three times daily as needed (dizziness). lisinopril-hydrochlorothiazide 10-12.5 mg per tablet Take 1 tablet by mouth once daily. peg 3350-Electrolytes (GOLYTELY) 236-22.74-6.74 -5.86 gram suspension Take 4,000 mL by mouth one time only for 1 dose. Refer to printed prep instructions from your provider. metoprolol succinate XL, long acting, 25 mg 24 hr tablet Take 25 mg by mouth twice daily. (Patient not taking: Reported on 11/17/2022) ALLERGIES: Patient has no known allergies. PERSONAL HISTORY: Social History Tobacco Use Smoking status: Never Smokeless tobacco: Never Substance Use Topics Alcohol use: No Drug use: No FAMILY HISTORY Problem Relation Age of Onset Colon Cancer Mother The review of systems data was entered by the nurse and reviewed by [place] Nursing Notes: Gila Allen 11/17/2022 2:51 PM Signed REVIEW OF SYSTEMS: General: The patient denies fatigue, denies weight loss, denies weight gain, denies feeling hot, and denies feelings of cold. Eyes: The patient denies glaucoma, denies eye injury/surgery, does not wear glasses or contacts. Ear/Nose/Throat: The patient denies allergies, denies hayfever, denies ear infections, and denies bloody noses. Cardiovascular: The patient denies chest pain, denies heart disease, NOTES high blood pressure,denies cardiac stent, denies prior heart attack, denies irregular heart beat, denies high cholesterol, denies poor circulation, denies heart failure, other cardiac issues, denies claudication, denies coldfeet, denies peripheral arterial stent. Respiratory: The patient denies tuberculosis, denies pneumonia, denies frequent cough, denies pulmonary embolism, denies shortness of breath, and denies coughing up blood. Gastrointestinal: The patient denies difficulty swallowing, denies acid reflux, denies ulcers, denies vomiting, denies jaundice/hepatitis, denies gallbladder problems, denies black or tarry stools, denies hemorrhoids, denies bleeding from rectum, denies diverticulitis, denies constipation, denies diarrhea, denies loss of stool control, and denies hernias. Kidney/Bladder: The patient denies kidney stones, denies urine infections, and denies bloody urine. Skin: The patient NOTES a history of skin cancer, denies bleeding/changing moles, and denies a history of skin rash. Neurologic: The patient denies a history of epilepsy/convulsions, denies headaches, denies head/spinal injuries, and denies stroke/TIA. Psychiatric: The patient denies psychiatric medications, denies depression, and denies voices, denies substance abuse. Endocrine: The patient denies thyroid disorders, denies diabetes, and denies hormonal problems. Hematologic: The patient denies a history of bruising, denies bleeding, and denies anemia, denies blood clots. Infections: The patient NOTES a history of measles and mumps, denies rheumatic fever, and denies sexually transmitted diseases. Musculoskeletal: The patient denies back pain/injury, denies back problems, denies sciatica, deniesknee/foot trouble, denies arthritis, or denies gout. When was patient's last Mammogram screening? 01/2022 Last Colonoscopy: 10/2019 Gila Allen PHYSICAL EXAMINATION: General: The patient is 67 year old female, well nourished, well hydrated in no acute distress. Thepatient is oriented to time, place, and person. VITALS: Blood pressure 152/94, pulse 74, temperature 37.1 C (98.8 F), height 161.3 cm (5' 3.5), weight 95.3 kg (210 lb), last menstrual period 07/05/2006, SpO2 99 %. Body mass index is 36.62 kg/m . Head: Normal cephalic, atraumatic Eyes: pupils are equally round, sclera are clear/anicteric Neck is supple with no tracheal deviation Respiratory: Normal respiratory excursion and pattern. Abdominal exam: benign Extremities: no clubbing, cyanosis or edema. Neuro: non focal Psych: normal mood Assessment IMPRESSION: history of colon polyps, family history of colon cancer PLAN: I have discussed the above with the patient. I have offered colonoscopy , possible biopsies I have explained the procedure to the patient. I have counseled the patient as to the risks of the procedure, including but not limited to: infection, bleeding, injury to any intrabdominal organs such as liver/spleen, perforation of the GI tract,inability to complete the procedure, complications of anesthesia, etc. - the patient understands. The patient was offered a surgery/procedure at a [facility]. The provider and patient have discussed in detail the risk of exposure to and/or potential harm posed by the COVID-19 viruswith having a surgery/procedure at this time versus the risk of delaying the surgery/procedure. It is not possible to know either the risk of delaying the surgery or procedure or chance of getting aninfection with perfect accuracy, but a joint decision was made between the patient and the providerto proceed at this time with the scheduled surgery/procedure. The patient wishes to proceed. I have answered all questions to the patient s satisfaction and the patient has no further questions. Diagnoses: (Z86.010) History of colonic polyps (primary encounter diagnosis) I have confirmed and edited as necessary, the PFSH and ROS obtained by others. Patient's primary physician is Dr. Mon, for whom a communication regarding patient's history of colon polyps will be sent. Return to Clinic: The patient will be scheduled on 12/15/2022 for colonoscopy at [facility]. Medical Decision Making: Problems: Low: Stable chronic illness Risk: Low: Low risk from testing/treatment Medical Decision Making Level: 3 - Low Thelma Fenton MD [facility] Instructions* Patient Instructions* Thelma Fenton MD - 11/17/2022 3:10 PM EST Images from the original note were not included. Bowel Preparation Instructions for: Golytely, Nulytely, Trilyte or Colyte (polyethylene glycol 3350and electrolytes) IF YOU DO NOT FOLLOW THESE DIRECTIONS, YOUR COLONOSCOPY WILL BE CANCELLED. Jacob Instructions: Your bowel must be empty so that your doctor can clearly view your colon. Follow all of the instructions in this handout EXACTLY as they are written. Do NOT eat any solid food the ENTIRE day before your colonoscopy. Drink only clear liquids. Buy your bowel preparation at least 5 days before your colonoscopy. TRANSPORTATION on the Day of Your Exam A responsible person MUST be present with you at Check In prior to your colonoscopy and REMAIN in the endoscopy area until you are discharged. You are NOT ALLOWED to drive, take a taxi or bus, or leave the Endoscopy Center ALONE. If you do not have a responsible car pick up driver (family member or friend) with you to take you home, your exam cannot be done with sedation and will be cancelled. Please bring a list of all of your current medications, including any Over-the Counter medications with you. Medications If you take insulin, diabetic medications or blood thinners such as Coumadin (warfarin), Plavix (clopidogrel), Ticlid (ticlopidine hydrochloride), Agrylin (anagrelide), Xarelto (Rivaroxaban), Pradaxa(Dabigatran), Eliquis (Apixaban), and Effient (Prasugrel). You MUST call the doctors who orders those medicines for instructions on altering the dosage before your colonoscopy. All other medications should be taken the day of the exam with a sip of water including ASPIRIN. Five (5) Days Before Your Colonoscopy Do NOT take medicines that stop diarrhea - such as Imodium, Kaopectate, or Pepto Bismol. Do NOT take fiber supplements - such as Metamucil, Citrucel, or Perdiem. Do NOT take products that contain iron - such as multi-vitamins (the label lists what is in the products). Do NOT take Vitamin E. Buy the prescription bowel preparation solution at your local pharmacy or drugstore pharmacy. 10/2019 Bowel Preparation Instructions for: Golytely, Nulytely, Trilyte or Colyte (polyethylene glycol 3350and electrolytes) Three (3) Days Before Your Colonoscopy Do NOT eat high-fiber foods - such as popcorn, beans, seeds (flax, sunflower, quinoa), multigrain bread, nuts, salad/vegetables, or fresh and dried fruit. One (1) Day Before Your Colonoscopy Only drink clear liquids the ENTIRE DAY before your colonoscopy. Do NOT eat any solid foods. Drink at least 8 ounces of clear liquids every hour after waking up. The clear liquids you can drink include: Clear Liquid (NO RED LIQUIDS) DO NOT DRINK Gatorade, Pedialyte or Powerade Clear broth or bouillon Coffee or tea (no milk or non-dairy creamer) Carbonated and non-carbonated soft drinks Vijay-Aid or other fruit flavored drinks Strained fruit juices (no pulp) Jell-O, popsicles, hard candy Water Alcohol Milk or non-dairy creamers Noodles or vegetables in soup Juice with pulp Liquid you cannot see through Do not use tobacco/vaping products The bowel preparation solution will be consumed in two parts. Mix the solution the evening before your colonoscopy and refrigerate before drinking. You may add the flavor pack that came with the bowel preparation. Do NOT add ice, sugar or any other flavorings to the solution. Part 1 At 6:00 PM - Evening before your colonoscopy Drink an 8-oz glass of bowel preparation every 10 minutes for a total of 8 glasses. You may continue to drink clear liquids until midnight. Part 2 On the day of your colonoscopy you may drink clear liquids up to (three) 3 hours before your procedure. 4 1/2 hours before your colonoscopy Drink an 8-oz glass of bowel preparation every 10 minutes for a total of 8 glasses. Fifteen (15) minutes later, drink an 8-oz glass of clear liquids every 15 minutes for a total of 2 glasses. You may continue to drink clear liquids up to (three) 3 hours before your exam. 2 10/2019 documented in this encounterReg[facility]23 Nurse Note* Gila Allen - 11/17/2022 2:50 PM EST REVIEW OF SYSTEMS: General: The patient denies fatigue, denies weight loss, denies weight gain, denies feeling hot, and denies feelings of cold. Eyes: The patient denies glaucoma, denies eye injury/surgery, does not wear glasses or contacts. Ear/Nose/Throat: The patient denies allergies, denies hayfever, denies ear infections, and denies bloody noses. Cardiovascular: The patient denies chest pain, denies heart disease, NOTES high blood pressure,denies cardiac stent, denies prior heart attack, denies irregular heart beat, denies high cholesterol, denies poor circulation, denies heart failure, other cardiac issues, denies claudication, denies coldfeet, denies peripheral arterial stent. Respiratory: The patient denies tuberculosis, denies pneumonia, denies frequent cough, denies pulmonary embolism, denies shortness of breath, and denies coughing up blood. Gastrointestinal: The patient denies difficulty swallowing, denies acid reflux, denies ulcers, denies vomiting, denies jaundice/hepatitis, denies gallbladder problems, denies black or tarry stools, denies hemorrhoids, denies bleeding from rectum, denies diverticulitis, denies constipation, denies diarrhea, denies loss of stool control, and denies hernias. Kidney/Bladder: The patient denies kidney stones, denies urine infections, and denies bloody urine. Skin: The patient NOTES a history of skin cancer, denies bleeding/changing moles, and denies a history of skin rash. Neurologic: The patient denies a history of epilepsy/convulsions, denies headaches, denies head/spinal injuries, and denies stroke/TIA. Psychiatric: The patient denies psychiatric medications, denies depression, and denies voices, denies substance abuse. Endocrine: The patient denies thyroid disorders, denies diabetes, and denies hormonal problems. Hematologic: The patient denies a history of bruising, denies bleeding, and denies anemia, denies blood clots. Infections: The patient NOTES a history of measles and mumps, denies rheumatic fever, and denies sexually transmitted diseases. Musculoskeletal: The patient denies back pain/injury, denies back problems, denies sciatica, deniesknee/foot trouble, denies arthritis, or denies gout. When was patient's last Mammogram screening? 01/2022 Last Colonoscopy: 10/2019 Gila Allen [facility] Diagnosis History of colonic polyps Personal history of colonic polyps Family history of colon cancer Family history of malignant neoplasm of gastrointestinal tract documented in this encounter [facility] noteNo assessment information availableKaiser Foundation Hospital Work Phone: Hospital course Narrative No data available for this section [facility] Hospital Discharge instructions No data available for this section [facility] Progress note No data available for this section [facility] Reason for referral (narrative)* Outpatient Procedure (Routine) - Authorized Specialty Diagnoses / Procedures Referred By Contkarissa t Referred To Contact [facility] Diagnoses History of colonic polyps Procedures COLONOSCOPY SCREENING COLONOSCOPY FLX DX W/COLLJ SPEC WHEN Thelma Malave MD [address] [place] [address] [facility] [place] [address] Referral ID Status Reason Start Date Expiration Date Visits Requested Visits Authorized [id number] Authorized Auto-Generat ed Referral 11/17/2022 11/17/2023 1 1 [facility] for referral (narrative)No reason for referral information availableMilwaukee [facility] Work Phone: Summary Purpose Family History No Family History Records Found Relationship Condition Age at Onset Recorded Date/T geoff mother Disorder of thyroid Unknown Malignant neoplasm of thyroid gland Unkno wn sister Disorder of thyroid Unknown brother Disorder of thyroid Unknown Advance Directives No Advanced Directives Records FoundNo Advanced Directives Records FoundNo Advanced Directives Records FoundNo Advanced Directives Records FoundNo Advanced Directives Records FoundNo Advanced Directives Records Found Chief Complaint and Reason for Visit Chief Complaint Admit Date SUSPICIOUS THYROID BIOPSY April 25 12:12pm Additional Source Comments INFORMATION SOURCE (unrecogn ized section and content) DATE CREATED AUTHOR 11/29/2021 [facility] DATE CREATED AUTHOR AUTHOR'S ORGANIZ ATION 05/21/2023 [facility] ([place]) DATE CREATED AUTHOR AUTHOR'S ORGANIZ ATION 07/14/2023 [facility] DATE CREATED AUTHOR AUTHOR'S ORGANIZ ATION 04/24/2025 [facility] DATE CREATED AUTHOR AUTHOR'S ORGANIZ ATION 04/28/2025 [facility] DATE CREATED AUTHOR AUTHOR'S ORGANIZ ATION 05/18/2025 [facility] Source Comments (unrecognize d section and content) In the event this informatio n is protected by the Federal Confidentiality of Alcohol and Drug Abuse Patient Records regulations: The Federal rules restrict any use of the information to criminally investigate or prosecute any alcohol or drug abuse patient.[facility] Reason for Visit (unrecogniz ed section and content) Reason Comments Colon Consult Care Teams (unrecognized sec tion and content) Vice President Integrated Relationship Specialty Start Date End Date Ld Mon MD [address] [place] [address] PCP - General 04/21/04 Team Status: Active Member Role Status Dates Dr. Ld Mon MD Primary Care Provider Active Team Status: Inactive Member Role Status Dates Dr. Bud Suazo MD Attending Provider Active Start: April 25, 2025 End: April 25, 2025 Dr. Ld Mon MD Primary Care Provider Active Start: April 25, 2025 End: April 25, 2025 Dr. Ld Mon MD Referring Provider Active Start: April 25, 2025 End: April 25, 2025 Goals (unrecognized section and content) Goals may be documented in a n alternate section FOR RECORDS PERTAINING TO PATIENTS WHO ARE OR HAVE BEEN ENROLLED IN A CHEMICAL DEPENDENCY/SUBSTANCEABUSE PROGRAM, SOME INFORMATION MAY BE OMITTED. This clinical summary was aggregated from multiple sources. Caution should be exercised in using it in the provision of clinical care. This summary normalizes information from multiple sources, and as a consequence, information in this document may materially change the coding, format and clinical context of patient data. In addition, data may be omitted in some cases. CLINICAL DECISIONS SHOULD BE BASED ON THE PRIMARY CLINICAL RECORDS. [facility]. provides no warranty or guarantee of the accuracy or completeness of information in this document.
--- OUTSIDE RECORDS SUMMARY | 2025-05-21 06:05 | XMS RPT_ITS | CCD ---
Author Organization [facility] Care Team Providers Care Odd Shoe Examiner Name Role Phone Ld Mon MD Primary [...] Consulting Unavailable PROVIDER, UNKNOWN Consulting Unavailable Gabriele DAWN, Dr. Nava Attending Provider [phone] Elieser DAWN, Dr. Jaffe Primary Care Provider [phone] Elieser DAWN, Dr. Jaffe Referring Provider Ld [...] = 1 tab(s), Oral, 1st dose location: [facility], , 04/22/23 18:20:00 EDT Start Date: 04/27/23 [...] mouth once d aily. polyethylene glycol 3350 639879 mg / potassium chloride 2970 mg / sodium bicarbonate 6740 mg / sodium chloride 5860 mg / sodium sulfate 40136 mg powder for oral solution (1 source) [...] Reports Accession: Collected Date/Time: Received Date/Time: Pathologist: [id number] 03/27/2025 08:55 EDT 03/28/2025 08:59 EDT MD ROBERT ARGUETA Supplemental Report SUPPLEMENTAL: AFIRMA-Genomic Sequencing Sewer Results: Nodule: A, Thyroid, Right Side, 3.1 cm Genomic Sequencing Sewer: Suspicious Risk of Malignancy: 50% MTC: Negative Parathyroid: Negative BRAF p. V600E c. 1799T>A: Negative RET/PTC1, RET/PTC3: Not Detected AFIRMA XPression Port Reading: No Variant/Fusion Detected Nodule Result Summary: The result of this 3.1 cm [place] III nodule A is Afirma GSC Suspicious which suggests a risk of cancer of approximately 50%. The Risk of Malignancy of a GSC Suspicious Afirma XA negative sample remains approximately 50%. Clinical correlation and surgical resection should be considered. Complete report scanned into chart. Verified by Diagnostic interpretation performed at [facility] ROBERT ARGUETA MD Sign out Date: 04/25/2025 16:11 Performing Lab: [facility], [address] [place] [address] Pathology Dept Non-Order Checker Packer Processer Cytology Report CLINICAL INFORMATION: nontoxic single thyroid nodule [id number] DIAGNOSTIC CATEGORY: ATYPIA OF UNDETERMINED SIGNIFICANCE Per [facility] Cytology protocol, this specimen has been sent for Afirma Genomic Sequencing Sewer test. Results to follow in about 2 weeks. SPECIMEN: Right thyroid FNA GROSS DESCRIPTION: # of Monolayers: 1 Volume (ml) 30 Color: fixed clear pink needle rinse in CytoLyt Afirma sample collected for reflex testing SUGGESTION/EDUCATIONAL NOTES: This specimen was evaluated using criteria described in The [place] System for Reporting Thyroid Cytopathology, Second Edition (2018). The following risk of malignancy rates are estimates based on published studies and includes data extrapolation. Individual institutions may have different rates. Actual management may depend on other factors (e.g., clinical. Sonographic) besides the FNA interpretation. Pathology Reports Accession: Collected Date/Time: Received Date/Time: Pathologist: [id number] 03/27/2025 08:55 EDT 03/28/2025 08:59 EDT MD [...] lobectomy Verified by Pathology Report verified by [facility] Screened by: GEETHA RM Electronically signed by ROBERT ARGUETA MD Sign-Out Date: 03/29/2025 10:45 Performing Lab: [facility], [address] [place] [address] Pathology Dept Disclaimer If ancillary studies were utilized, the following Laboratory Developed Test (LDT) disclaimer will apply: Under CLIA requirements, [facility] is qualified to perform high complexity testing. For all ancillary stains, positive and negative controls stain appropriately. Performance characteristics of immunohistochemical and chromogenic in-situ hybridization tests have been determined by [facility]. These tests are used for clinical purposes, They should not be regarded as investigational or for research. Normal [facility] Surgery Visit Reporton 04-25 Surgery Visit Report [facility] [address] [place] [address] OFFICE VISIT Date of Service: 04/25/25 MR#: [id number] Acct: [id number] Name: ASHLEY TUTTLE Rep #: [id number] : 1955 Provider: Dr. Bud falk MD Age/Sex: 69/F Location: [facility] Status: Signed Intake Vital Signs 04/25/25 [...] DIFF)on 04-22-2025 CBC panel Auto (Bld) Normal [facility] Comment on above: Result Comment: CBC( WITHOUT DIFFERENTIAL) Performed By: #### 2 75296 #### [facility],[address] [place] [address] 58941 Erythrocyte distribution width (RBC) [Ratio] 13.3 % Normal 12.0 - 15.6 [facility] Comment on above: Performed By: #### 2 78762 #### [facility],[address] [place] [address] 43045 Hematocrit (Bld) [Volume fraction] 39.2 % Normal 34.0 - 46.0 [facility] Comment on above: Performed By: #### 2 87818 #### [facility],[address] [place] [address] 15502 Hemoglobin (Bld) [Mass/Vol] 13.6 g/dL Normal 12.0 - 16.0 [facility] Comment on above: Performed By: #### 2 78200 #### [facility],[address] [place] [address] 49940 MCH (RBC) [Entitic mass] 31 pg Normal 27 - 33 [facility] Comment on above: Performed By: #### 2 12528 #### [facility],[address] [place] [address] 39765 MCHC 35 X10 3 Normal 32 - 36 [facility] Comment on above: Performed By: #### 2 02786 #### [facility],[address] [place] [address] 48165 MCV (RBC) [Entitic vol] 88 fL Normal 80 - 99 [facility] Comment on above: Performed By: #### 2 38463 #### [facility],[address] [place] [address] 85324 PLATELET 237 x10EE3/UL Normal 150 - 450 [facility] Comment on above: Performed By: #### 2 89234 #### [facility],[address] [place] [address] 97510 Platelet mean volume (Bld) [Entitic vol] 8.3 fL Normal 6.6 - 10.5 [facility] Comment on above: Performed By: #### 2 10597 #### [facility],[address] [place] [address] 26288 RBC 4.47 x 10EE6/UL Normal 4.10 - 5.30 [facility] Comment on above: Performed By: #### 2 88966 #### [facility],[address] [place] [address] 03170 WBC 5.7 x 10EE3/UL Normal 4.5 - 10.8 [facility] Comment on above: Performed By: #### 2 89720 #### [facility],[address] [place] [address] 74673 CMP with eGFRon 04-22-2025 AGE 69 years Normal [facility] Comment on above: Performed By: #### 2 90756 #### [facility],[address] [place] [address] 58402 Albumin [Mass/Vol] 3.4 g/dL Normal 3.4 - 5.0 [facility] Comment on above: Performed By: #### 2 32918 #### [facility],[address] [place] [address] 97857 Albumin/Globulin [Mass ratio] 1.1 {ratio} Normal 0.9 - 1.6 [facility] Comment on above: Performed By: #### 2 63582 #### [facility],[address] [place] [address] 73421 ALK PHOS 87 U/L Normal 46 - 116 [facility] Comment on above: Performed By: #### 2 54815 #### [facility],[address] [place] [address] 38484 ALT [Catalytic activity/Vol] 21 U/L Normal 16 - 63 [facility] Comment on above: Performed By: #### 2 82434 #### [facility],[address] [place] [address] 83046 Anion gap [Moles/Vol] 12 mmol/L Normal 10 - 20 [facility] Comment on above: Performed By: #### 2 24763 #### [facility],[address] [place] [address] 65612 AST [Catalytic activity/Vol] 13 U/L Normal 13 - 39 [facility] Comment on above: Performed By: #### 2 78519 #### [facility],[address] [place] [address] 92643 B/C RATIO 32 ratio High 0 - 30 [facility] Comment on above: Performed By: #### 2 51977 #### [facility],[address] [place] [address] 75922 Bilirubin [Mass/Vol] 0.5 mg/dL Normal 0.2 - 1.0 [facility] Comment on above: Performed By: #### 2 41357 #### [facility],[address] [place] [address] 38828 Calcium [Mass/Vol] 9.1 mg/dL Normal 8.5 - 10.1 [facility] Comment on above: Performed By: #### 2 72093 #### [facility],[address] [place] [address] 89002 Chloride [Moles/Vol] 109 mmol/L High 98 - 107 [facility] Comment on above: Performed By: #### 2 45413 #### [facility],[address] [place] [address] 41743 CMP with eGFR Normal [facility] Comment on above: Result Comment: COMP REHENSIVE METABOLIC PANEL Performed By: #### 2 38259 #### [facility],[address] [place] [address] 19965 CO2 [Moles/Vol] 28.2 mmol/L Normal 21.0 - 32.0 [facility] Comment on above: Performed By: #### 2 17476 #### [facility],[address] [place] [address] 06445 Creatinine [Mass/Vol] 0.73 mg/dL Normal 0.55 - 1.02 [facility] Comment on above: Performed By: #### 2 72085 #### [facility],[address] [place] [address] 80046 GFR/1.73 sq M.predicted among non-blacks MDRD (S/P/Bld) [Vol rate/Area] mL/min/{1.73_m2} Normal 60 - 999 [facility] Comment on above: Performed By: #### 2 42759 #### [facility],[address] [place] [address] Result Comment: ACCO RDING TO THE NATIONAL KIDNEY DISEASE EDUCATION PROGRAM(NKDE), A NORMAL eGFR IS A VALUE GREATER THAN OR EQUAL TO 60 ML/MIN/1.73 SQ METERS. CHRONIC KIDNEY DISEASE: <60mL/MIN/1.73 SQ METERS KIDNEY FAILURE: <15mL/MIN/1.73 SQ METERS THIS TEST SHOULD ONLY BE USED FOR PATIENTS 18 YEARS OF AGE AND OLDER. Globulin (S) [Mass/Vol] 3.0 g/dL Normal 1.5 - 3.8 [facility] Comment on above: Performed By: #### 2 35318 #### [facility],[address] [place] [address] 75650 Glucose [Mass/Vol] 93 mg/dL Normal 74 - 106 [facility] Comment on above: Performed By: #### 2 32382 #### [facility],[address] [place] [address] 31684 Potassium [Moles/Vol] 3.8 mmol/L Normal 3.5 - 5.1 [facility] Comment on above: Performed By: #### 2 76686 #### [facility],[address] [place] [address] 79618 Protein [Mass/Vol] 6.4 g/dL Normal 6.4 - 8.2 [facility] Comment on above: Performed By: #### 2 18228 #### [facility],[address] [place] [address] 51624 Sodium [Moles/Vol] 145 mmol/L Normal 136 - 145 [facility] Comment on above: Performed By: #### 2 58746 #### [facility],[address] [place] [address] 81893 Urea nitrogen [Mass/Vol] 23 mg/dL High 7 - 18 [facility] Comment on above: Performed By: #### 2 16093 #### [facility],[address] [place] [address] 01299 LIPID PROFILEon 04-22-2025 Cholesterol [Mass/Vol] 251 mg/dL High 0 - 240 [facility] Comment on above: Performed By: #### 2 88161 #### [facility],[address] [place] [address] 79910 Cholesterol in HDL [Mass/Vol] 62 mg/dL High 40 - 60 [facility] Comment on above: Performed By: #### 2 59145 #### [facility],[address] [place] [address] 15365 Cholesterol in LDL [Mass/Vol] 172 mg/dL High 0 - 129 [facility] Comment on above: Performed By: #### 2 24868 #### [facility],[address] [place] [address] 46986 Cholesterol.total/Cho lesterol in HDL [Mass ratio] 4.0 {ratio} Normal 0.0 - 5.0 [facility] Comment on above: Performed By: #### 2 04390 #### [facility],[address] [place] [address] 79929 Lipid 1996 panel Normal [facility] Comment on above: Result Comment: LIPI D PROFILE Performed By: #### 2 51800 #### [facility],[address] [place] [address] 52794 Triglyceride [Mass/Vol] 87 mg/dL Normal 0 - 150 [facility] Comment on above: Performed By: #### 2 98052 #### [facility],[address] [place] [address] 77551 3D MAMM BILAT SCREENon 03-29 3D MAMM BILAT SCREEN [place] [address] Patient: ASHLEY TUTTLE Phone#: : 1955 Age: 69 Gender: F Pt. Type: Out Account: [id number] Location: [facility] Ordering: LD MON Exam Date: 03/29/2025/14:45 Family Phys: Charge Code: [id number] Physician: Yoakum Order #: [id number] Dose#: PROCEDURE: BILATERAL SCREENING BREAST TOMOSYNTHESIS MAMMOGRAM WITH CAD COMPARISON: [facility], 3D BILAT SCREEN, 02/01/2023, 13:56. [facility], 3D BILAT SCREEN, 03/12/2024, 14:08. INDICATIONS: [...] Swift MD on 03/29/2025 at 15:04 Normal [facility] Non-Order Checker Packer Processer Cytology Reporton Non-Order Checker Packer Processer Cytology Report . Pathology Reports Accession: Collected Date/Time: Received Date/Time: Pathologist: [id number] 03/27/2025 08:55 EDT 03/28/2025 08:59 MD ROBERT MARIO Non-Order Checker Packer Processer Cytology Report CLINICAL INFORMATION: nontoxic single thyroid nodule [id number] DIAGNOSTIC CATEGORY: ATYPIA OF UNDETERMINED SIGNIFICANCE Per [facility] Cytology protocol, this specimen has been sent for Afirma Genomic Sequencing Sewer test. Results to follow in about 2 weeks. SPECIMEN: Right thyroid FNA GROSS DESCRIPTION: # of Monolayers: 1 Volume (ml) 30 Color: fixed clear pink needle rinse in CytoLyt Afirma sample collected for reflex testing SUGGESTION/EDUCATIONAL NOTES: This specimen was evaluated using criteria described in The [place] System for Reporting Thyroid Cytopathology, Second Edition [...] lobectomy Verified by Pathology Report verified by [facility] Screened by: GEETHA Electronically signed by ROBERT ARGUETA MD Sign-Out Date: 03/29/2025 10:45 Performing Lab: [facility], [address] [place] [address] Pathology Dept Disclaimer If ancillary studies were utilized, the following Laboratory Developed Test (LDT) disclaimer will apply: Pathology Reports Accession: Collected Date/Time: Received Date/Time: Pathologist: [id number] 03/27/2025 08:55 EDT 03/28/2025 08:59 MD ROBERT MARIO Disclaimer Under CLIA requirements, [facility] is qualified to perform high complexity testing. For all ancillary stains, positive and negative controls stain appropriately. Performance characteristics of immunohistochemical and chromogenic in-situ hybridization tests have been determined by [facility]. These tests are used for clinical purposes, They should not be regarded as investigational or for research. Normal [facility] MA[facility] FINE NEEDLE ASPIR W/ US GUID E 1ST LESIONon 03-27-2025 FINE NEEDLE ASPIR W/ US GUIDE 1ST LESION [address] [address] Patient: ASHLEY TUTTLE Phone#: : 1955 Age: 69 Gender: F Pt. Type: Out Account: [id number] Location: 052 Ordering: ALEXANDER MICKEY Exam Date: 03/27/2025/12:56 Family Phys: LD MON Charge Code: 191100 Physician: Yoakum Order #: [id number] Dose#: This report includes an Addendum and [...] Cobos MD on 04/08/2025 at 16:36 Normal [facility] US THYROIDon 02-20-2025 THYROID [place] [address] Patient: ASHLEY TUTTLE Phone#: : 1955 Age: 69 Gender: F Pt. Type: Out Account: [id number] Location: [facility] Ordering: ALEXANDER AREVALO Exam Date: 02/20/2025/12:50 Family Phys: LD MON Charge Code: 820757 Physician: Yoakum Order #: [id number] Dose#: PROCEDURE: THYROID ULTRASOUND COMPARISON: None. INDICATIONS: [...] Cobos MD on 02/20/2025 at 14:10 Normal [facility] CBC + DIFFon 02-07-2025 Baso # 0.02 x10EE3/UL Normal 0.00 - 0.10 [facility] Comment on above: Performed By: #### 2 29128 #### [facility],[address] [place], [place] [id number] Basophils/100 WBC (Bld) 0.3 % Normal 0.0 - 2.0 [facility] Comment on above: Performed By: #### 2 76710 #### [facility],[address] [place] [address] CBC + DIFF Normal [facility] Comment on above: Result Comment: CBC- COMPLETE BLOOD COUNT Performed By: #### 2 88329 #### [facility],[address] [place] [address] EO # 0.10 x10EE3/UL Normal 0.00 - 0.50 [facility] Comment on above: Performed By: #### 2 73303 #### [facility],[address] [place] [address] Eosinophils/100 WBC (Bld) 1.4 % Normal 0.0 - 7.0 [facility] Comment on above: Performed By: #### 2 99132 #### [facility],[address] [place] [address] Erythrocyte distribution width (RBC) [Ratio] 13.4 % Normal 12.0 - 15.6 [facility] Comment on above: Performed By: #### 2 82590 #### [facility],[address] [place] [address] Hematocrit (Bld) [Volume fraction] 40.5 % Normal 34.0 - 46.0 [facility] Comment on above: Performed By: #### 2 51081 #### [facility],[address] [place], [place] [address] Hemoglobin (Bld) [Mass/Vol] 13.7 g/dL Normal 12.0 - 16.0 [facility] Comment on above: Performed By: #### 2 90591 #### [facility],[address] [place], [place] [address] Lymph # 0.53 x10EE3/UL Low 0.80 - 2.80 [facility] Comment on above: Performed By: #### 2 61853 #### [facility],[address] [place] [address] 96038 Lymphocytes/100 WBC (Bld) 7.7 % Low 20.0 - 45.0 [facility] Comment on above: Performed By: #### 2 16717 #### [facility],[address] [place] [address] 49270 MANUAL DIFF N/A Normal [facility] Comment on above: Performed By: #### 2 07260 #### [facility],[address] [place] [address] 28869 MCH (RBC) [Entitic mass] 29 pg Normal 27 - 33 [facility] Comment on above: Performed By: #### 2 57186 #### [facility],[address] [place] [address] MCHC 34 X10 3 Normal 32 - 36 [facility] Comment on above: Performed By: #### 2 20780 #### [facility],[address] [place] [address] 20650 MCV (RBC) [Entitic vol] 87 fL Normal 80 - 99 [facility] Comment on above: Performed By: #### 2 97111 #### [facility],[address] [place] [address] 63743 [place]anau # 0.39 x10EE3/UL Normal 0.20 - 1.00 [facility] Comment on above: Performed By: #### 2 83732 #### [facility],[address] [place] [address] 24057 MONOS % 5.6 % Normal 0.0 - 10.0 [facility] Comment on above: Performed By: #### 2 76325 #### [facility],[address] [place] [address] 99420 Morphology Chris (Bld) [Interp] N/A Normal [facility] Comment on above: Performed By: #### 2 76356 #### [facility],[address] [place] [address] 54127 Neut # 5.86 x10EE3/UL Normal 1.50 - 7.10 [facility] Comment on above: Performed By: #### 2 33457 #### [facility],[address] [place] [address] 68511 Neutrophils/100 WBC (Bld) 85.0 % High 46.0 - 76.0 [facility] Comment on above: Performed By: #### 2 36035 #### [facility],[address] [place] [address] 34990 PLATELET 177 x10EE3/UL Normal 150 - 450 [facility] Comment on above: Performed By: #### 2 21985 #### [facility],[address] [place] [address] 90153 Platelet mean volume (Bld) [Entitic vol] 7.2 fL Normal 6.6 - 10.5 [facility] Comment on above: Result Comment: AUTO MATED DIFFERENTIAL Performed By: #### 2 81310 #### [facility],[address] [place] [address] 21017 RBC 4.67 x 10EE6/UL Normal 4.10 - 5.30 [facility] Comment on above: Performed By: #### 2 88701 #### [facility],[address] [place] [address] 01086 WBC 6.9 x 10EE3/UL Normal 4.5 - 10.8 [facility] Comment on above: Performed By: #### 2 88395 #### [facility],[address] [place] [address] 90473 CMP with eGFRon 02-07-2025 AGE 69 years Normal [facility] Comment on above: Performed By: #### 2 16925 #### [facility],[address] [place] [address] 54674 Albumin [Mass/Vol] 3.4 g/dL Normal 3.4 - 5.0 [facility] Comment on above: Performed By: #### 2 37131 #### [facility],[address] [place] [address] 73712 Albumin/Globulin [Mass ratio] 1.0 {ratio} Normal 0.9 - 1.6 [facility] Comment on above: Performed By: #### 2 80092 #### [facility],[address] [place] [address] 57816 ALK PHOS 92 U/L Normal 46 - 116 [facility] Comment on above: Performed By: #### 2 40390 #### [facility],[address] [place] [address] 98709 ALT [Catalytic activity/Vol] 21 U/L Normal 16 - 63 [facility] Comment on above: Performed By: #### 2 40048 #### [facility],[address] [place] [address] 32486 Anion gap [Moles/Vol] 12 mmol/L Normal 10 - 20 [facility] Comment on above: Performed By: #### 2 50656 #### [facility],[address] [place] [address] 71641 AST [Catalytic activity/Vol] 11 U/L Low 13 - 39 [facility] Comment on above: Performed By: #### 2 87499 #### [facility],[address] [place] [address] 89908 B/C RATIO 31 ratio High 0 - 30 [facility] Comment on above: Performed By: #### 2 09891 #### [facility],[address] [place] [address] 50742 Bilirubin [Mass/Vol] 0.7 mg/dL Normal 0.2 - 1.0 [facility] Comment on above: Performed By: #### 2 56208 #### [facility],[address] [place] [address] 03781 Calcium [Mass/Vol] 8.5 mg/dL Normal 8.5 - 10.1 [facility] Comment on above: Performed By: #### 2 55535 #### [facility],[address] [place], [place] [address] Chloride [Moles/Vol] 104 mmol/L Normal 98 - 107 [facility] Comment on above: Performed By: #### 2 79167 #### [facility],[address] [place] [address] CMP with eGFR Normal [facility] Comment on above: Result Comment: COMP REHENSIVE METABOLIC PANEL Performed By: #### 2 47274 #### [facility],[address] [place] [address] CO2 [Moles/Vol] 25.2 mmol/L Normal 21.0 - 32.0 [facility] Comment on above: Performed By: #### 2 67490 #### [place] [address] Creatinine [Mass/Vol] 0.81 mg/dL Normal 0.55 - 1.02 [facility] Comment on above: Performed By: #### 2 54306 #### [facility],[address] [place] [address] GFR/1.73 sq M.predicted among non-blacks MDRD (S/P/Bld) [Vol rate/Area] mL/min/{1.73_m2} Normal 60 - 999 [facility] Comment on above: Performed By: #### 2 13545 #### [facility],[address] [place] [address] Result Comment: ACCO RDING TO THE NATIONAL KIDNEY DISEASE EDUCATION PROGRAM(NKDE), A NORMAL eGFR IS A VALUE GREATER THAN OR EQUAL TO 60 ML/MIN/1.73 SQ METERS. CHRONIC KIDNEY DISEASE: <60mL/MIN/1.73 SQ METERS KIDNEY FAILURE: <15mL/MIN/1.73 SQ METERS THIS TEST SHOULD ONLY BE USED FOR PATIENTS 18 YEARS OF AGE AND OLDER. Globulin (S) [Mass/Vol] 3.3 g/dL Normal 1.5 - 3.8 [facility] Comment on above: Performed By: #### 2 61489 #### [facility],[address] [place] [address] 55065 Glucose [Mass/Vol] 111 mg/dL High 74 - 106 [facility] Comment on above: Performed By: #### 2 64007 #### [facility],[address] [place] [address] 62448 Potassium [Moles/Vol] 3.9 mmol/L Normal 3.5 - 5.1 [facility] Comment on above: Performed By: #### 2 34007 #### [facility],[address] [place] [address] 50506 Protein [Mass/Vol] 6.7 g/dL Normal 6.4 - 8.2 [facility] Comment on above: Performed By: #### 2 52221 #### [facility],[address] [place] [address] 48060 Sodium [Moles/Vol] 137 mmol/L Normal 136 - 145 [facility] Comment on above: Performed By: #### 2 09985 #### [facility],[address] [place] [address] 63049 Urea nitrogen [Mass/Vol] 25 mg/dL High 7 - 18 [facility] Comment on above: Performed By: #### 2 63120 #### [facility],[address] [place] [address] 67712 CORONAVIRUS (SARS) ANTIGEN T ESTon 02-07-2025 EXTERNAL QC DONE? YES Normal [facility] Comment on above: Performed By: #### 2 73177 #### [facility],[address] [place] [address] 22771 INTERNAL CONTROL PASS Normal [facility] Comment on above: Performed By: #### 2 92350 #### [facility],[address] [place] [address] 63433 SARS ANTIGEN Negative Normal NORMAL: NEGATIVE [facility] Comment on above: Performed By: #### 2 56703 #### [facility],[address] [place] [address] 96440 SEND TO ? NO Normal [facility] Comment on above: Result Comment: SARS -CoV-2 THIS TEST IS BEING USED UNDER THE FDA EUA PROCEDURE. THIS ASSAY HAS BEEN VALIDATED AT [facility] FOR USE WITH NASAL AND NASOPHARYNGEAL SWAB [...] PUBLIC HEALTH AUTHORITIES. Performed By: #### 2 95299 #### [facility],[address] [place] [address] CHEST (PE PROTOCOL)on CT CHEST (PE PROTOCOL) [place] [id number] Patient: ASHLEY TUTTLE Phone#: : 1955 Age: 69 Gender: F Pt. Type: ER Account: [id number] Location: 052 Ordering: CHONG ANDRES Exam Date: 02/07/2025/9:13 Family Phys: LD MON Charge Code: 666297 Physician: Yoakum Order #: [id number] Dose#: 8.90 PROCEDURE: CT CHEST WITH CONTRAST FOR PE COMPARISON: [facility], CT, CHEST PE W CON, 07/29/2023, 6:55. [...] 69 Gender: F Pt. Type: ER Account: [id number] Location: 052 Ordering: CHONG ANDRES Exam Date: 02/07/2025/9:13 Family Phys: LD MON Charge Code: 844313 Physician: Yoakum Order #: [id number] Dose#: 8.90 2. Enlarged heterogeneous right lobe of the thyroid, suspect large underlying nodule. Recommend dedicated thyroid ultrasound for further characterization. Dictated by: Shruti Cobos MD on 02/07/2025 at 9:53 Approved by: Shruti Cobos MD on 02/07/2025 at 10:00 Normal [facility] D-DIMER, QUANTITATIVEon 04-0 D-DIMER QUANT 267 ng/ml High 0 - 230 [facility] Comment on above: Performed By: #### 2 45107 #### [facility],[address] [place], [place] [address] D-DIMER, QUANTITATIVE Normal [facility] Comment on above: Result Comment: CECI T D-DIMER Performed By: #### 2 97633 #### [facility],[address] [place], [place] [address] ED MED ADMINISTRATION DETAIL on 02-07-2025 ED MED ADMINISTRATION DETAIL Student Support Counsel[place] [address] [id number] 02/07/2025 Patient: ASHLEY TUTTLE Sex: Female : [...] 10:28 Rob Eastep, R.N. 1 of 2 Student Support Counselor Medication Ordered Medication Administration Date/Time MethylPREDNISolo 09:35 [...] Rob Eastep, R.N. 2 of 2 Normal [facility] ED NURSES CLINICAL NOTEon ED NURSES CLINICAL NOTE Nurse Narrative Nurse Clinical Narrative [address] [place] [address] [id number] 02/07/2025 07:11:00 Patient: ASHLEY TUTTLE Sex: Female [...] Griffith R.R.T. 09:08 02/07/25. Patient transported to [place]. -- 09:09 02/07/25 EDT Rob Rodrigez R.N. [...] with p (more content not included)... Normal [facility] ED ORDER SHEET (CPOE ONLY)on 02-07-2025 ED ORDER SHEET (CPOE ONLY) Order Sheet Order Sheet [address] [place] [address] [id number] 02/07/2025 Patient: ASHLEY TUTTLE Sex: Female : [...] Sodium 09:19 02/07/2025 09:21 09:38 Succ (Solu-Medrol) XML629 mg Chong Andres D.O. 02/07/2025 02/07/2025 (NOW [...] Stat 07:41 02/07/2025 07:59 02/07/2025 08:47 02/07/2025 Rbo Hubbard Lucas Eastep, D.O. R.N. R.N. EKG [...] (02/07/2025 14:07 EDT)] 3 of 3 Normal [facility] ED PHYSICIAN CLINICAL REPORT on 02-07-2025 ED PHYSICIAN CLINICAL REPORT Narrative Physician Clinical [address] [address] [id number] 02/07/2025 07:11:00 Patient: ASHLEY TUTTLE Sex: Female [...] 1.50 - 7.10 Final EDT 02/07/2025 08:10 [place] # 0.39 x10/UL 0.20 - 1.00 Final [...] mg/dl 0. (more content not included)... Normal [facility] ED SUPER BILLon 02-07-2025 ED SUPER BILL [address] [place] [address] [id number] 02/07/2025 Patient: ASHLEY TUTTLE Sex: Female : 1955 Age: 69y Facility Professional Category Item Description Code Code Quantity Fee Total Nurse/E/M EMERGENCY 503174 1 $0.00 $0.00 DEPT VISIT HIGH SEVERITYFUNCJ (73283-40) Nurse/IV/IM/Infusions Drip/IVPB initial 612808 1 $0.00 $0.00 (86232) Nurse/IV/IM/Infusions IVP additional 224501 1 $0.00 $0.00 push (44031) Nurse/Procedures Respiratory 540726 1 $0.00 $0.00 therapy - inhalation (25956) Grand $0.00 Total Providers Zev Huggins D.O. Chief Complaint DYSPNEA. 1 of 2 Superbill Principal Diagnosis Acute dyspnea. Bronchopneumonia. thyroid nodule needs an ultrasound and probable biopsy. ICD-10 Codes J18.0: Bronchopneumonia, unspecified organism R06.09: Other forms of dyspnea 2 of 2 Normal [facility] ED VISIT SUMMARYon ED VISIT SUMMARY Visit Overview Visit Overview [address] [place] [address] [id number] 02/07/2025 Patient: ASHLEY TUTTLE Sex: Female : [...] ACUTE DYSPNEA BRONCHOPNEUMONIA 3 of 3 Normal [facility] ED VITALS FLOW SHEETon 02-07 ED VITALS FLOW SHEET Vitals Vital Sign Flow Sheet [address] [place] [address] [id number] 02/07/2025 Patient: ASHLEY TUTTLE Sex: Female : [...] 99.7 F 0 3 of 3 Normal [facility] INFLUENZA VIRUS RAPID A/Bon 02-07-2025 INFLUENZA VIRUS [...] TO THREE DAYS. RESULT CRITICAL? NO Normal [facility] Comment on above: Performed By: #### 2 34271 #### [facility],[address] [place] [address] NT-proBNPon 02-07-2025 Natriuretic peptide B (Bld) [Mass/Vol] 304 pg/mL High 0 - 125 [facility] Comment on above: Performed By: #### 2 48988 #### [facility],[address] [place], [place] [address] TROPONINon 02-07-2025 HS TROPONIN 4.0 pg/mL Normal 0.0 - 51.4 [facility] Comment on above: Performed By: #### 2 60130 #### [facility],[address] [place] [address] CBC (NO DIFF)on 10-08-2024 CBC panel Auto (Bld) Normal [facility] Comment on above: Result Comment: CBC( WITHOUT DIFFERENTIAL) Performed By: #### 2 61748 #### [facility],[address] [place] [address] 22863 Erythrocyte distribution width (RBC) [Ratio] 13.6 % Normal 12.0 - 15.6 [facility] Comment on above: Performed By: #### 2 49393 #### [facility],[address] [place] [address] 81433 Hematocrit (Bld) [Volume fraction] 41.3 % Normal 34.0 - 46.0 [facility] Comment on above: Performed By: #### 2 94893 #### [facility],[address] [place] [address] 27608 Hemoglobin (Bld) [Mass/Vol] 13.8 g/dL Normal 12.0 - 16.0 [facility] Comment on above: Performed By: #### 2 21542 #### [facility],[address] [place] [address] 26320 MCH (RBC) [Entitic mass] 29 pg Normal 27 - 33 [facility] Comment on above: Performed By: #### 2 61137 #### [facility],[address] [place] [address] 74268 MCHC 34 X10 3 Normal 32 - 36 [facility] Comment on above: Performed By: #### 2 41158 #### [facility],[address] [place] [address] 46930 MCV (RBC) [Entitic vol] 87 fL Normal 80 - 99 [facility] Comment on above: Performed By: #### 2 54060 #### [facility],[address] [place] [address] 46277 PLATELET 279 x10EE3/UL Normal 150 - 450 [facility] Comment on above: Performed By: #### 2 71180 #### [facility],[address] [place] [address] 65584 Platelet mean volume (Bld) [Entitic vol] 7.4 fL Normal 6.6 - 10.5 [facility] Comment on above: Performed By: #### 2 82228 #### [facility],[address] [place] [address] 95205 RBC 4.77 x 10EE6/UL Normal 4.10 - 5.30 [facility] Comment on above: Performed By: #### 2 73918 #### [facility],[address] [place] [address] 28959 WBC 6.9 x 10EE3/UL Normal 4.5 - 10.8 [facility] Comment on above: Performed By: #### 2 99686 #### [facility],[address] [place] [address] 52517 CMP with eGFRon 10-08-2024 AGE 69 years Normal [facility] Comment on above: Performed By: #### 2 59420 #### [facility],[address] [place] [address] 27092 Albumin [Mass/Vol] 3.4 g/dL Normal 3.4 - 5.0 [facility] Comment on above: Performed By: #### 2 09372 #### [facility],[address] [place] [address] 47741 Albumin/Globulin [Mass ratio] 1.0 {ratio} Normal 0.9 - 1.6 [facility] Comment on above: Performed By: #### 2 83456 #### [facility],[address] [place] [address] 73609 ALK PHOS 94 U/L Normal 46 - 116 [facility] Comment on above: Performed By: #### 2 33863 #### [facility],[address] [place] [address] 11468 ALT [Catalytic activity/Vol] 21 U/L Normal 16 - 63 [facility] Comment on above: Performed By: #### 2 69856 #### [facility],[address] [place] [address] 65329 Anion gap [Moles/Vol] 14 mmol/L Normal 10 - 20 [facility] Comment on above: Performed By: #### 2 51636 #### [facility],[address] [place] [address] 49294 AST [Catalytic activity/Vol] 14 U/L Normal 13 - 39 [facility] Comment on above: Performed By: #### 2 92388 #### [facility],[address] [place] [address] 49487 B/C RATIO 21 ratio Normal 0 - 30 [facility] Comment on above: Performed By: #### 2 19081 #### [facility],[address] [place] [address] 94837 Bilirubin [Mass/Vol] 0.6 mg/dL Normal 0.2 - 1.0 [facility] Comment on above: Performed By: #### 2 75756 #### [facility],[address] [place] [address] 63921 Calcium [Mass/Vol] 9.2 mg/dL Normal 8.5 - 10.1 [facility] Comment on above: Performed By: #### 2 95712 #### [facility],[address] [place] [address] 00521 Chloride [Moles/Vol] 106 mmol/L Normal 98 - 107 [facility] Comment on above: Performed By: #### 2 36988 #### [facility],[address] [place] [address] 57034 CMP with eGFR Normal [facility] Comment on above: Result Comment: COMP REHENSIVE METABOLIC PANEL Performed By: #### 2 26780 #### [facility],[address] [place] [address] 52664 CO2 [Moles/Vol] 26.8 mmol/L Normal 21.0 - 32.0 [facility] Comment on above: Performed By: #### 2 88336 #### [facility],[address] [place] [address] 28235 Creatinine [Mass/Vol] 0.82 mg/dL Normal 0.55 - 1.02 [facility] Comment on above: Performed By: #### 2 64423 #### [facility],[address] [place] [address] 50195 GFR/1.73 sq M.predicted among non-blacks MDRD (S/P/Bld) [Vol rate/Area] mL/min/{1.73_m2} Normal 60 - 999 [facility] Comment on above: Performed By: #### 2 54296 #### [facility],[address] [place] [address] 49497 Result Comment: ACCO RDING TO THE NATIONAL KIDNEY DISEASE EDUCATION PROGRAM(NKDE), A NORMAL eGFR IS A VALUE GREATER THAN OR EQUAL TO 60 ML/MIN/1.73 SQ METERS. CHRONIC KIDNEY DISEASE: <60mL/MIN/1.73 SQ METERS KIDNEY FAILURE: <15mL/MIN/1.73 SQ METERS THIS TEST SHOULD ONLY BE USED FOR PATIENTS 18 YEARS OF AGE AND OLDER. Globulin (S) [Mass/Vol] 3.3 g/dL Normal 1.5 - 3.8 [facility] Comment on above: Performed By: #### 2 38660 #### [facility],[address] [place] [address] 10424 Glucose [Mass/Vol] 110 mg/dL High 74 - 106 [facility] Comment on above: Performed By: #### 2 41083 #### [facility],[address] [place] [address] 08917 Potassium [Moles/Vol] 3.5 mmol/L Normal 3.5 - 5.1 [facility] Comment on above: Performed By: #### 2 57958 #### [facility],[address] [place] [address] 96737 Protein [Mass/Vol] 6.7 g/dL Normal 6.4 - 8.2 [facility] Comment on above: Performed By: #### 2 43913 #### [facility],[address] [place] [address] Sodium [Moles/Vol] 143 mmol/L Normal 136 - 145 [facility] Comment on above: Performed By: #### 2 95741 #### [facility],[address] [place] [address] Urea nitrogen [Mass/Vol] 17 mg/dL Normal 7 - 18 [facility] Comment on above: Performed By: #### 2 52115 #### [facility],[address] [place] [address] HEMOGLOBIN A1C (POM)on 10-08 Glucose [Mass/Vol] 102.5 mg/dL High 0.0 - 0.0 [facility] Comment on above: Result Comment: BLDo HEMOGLOBIN A1C REFERENCE RANGESBLDo Suggested Diagnosis HbA1c(%) HbA1C (mmol/mol Diabetic >/=6.5 >/=48 Prediabetes 5.7 - 6.4 39 - 47 Normal <5.7 <39 Performed By: #### 2 89835 #### [facility],[address] [place] [address] HbA1c (Bld) [Mass fraction] 5.2 % Normal 0.0 - 6.5 [facility] Comment on above: Performed By: #### 2 71524 #### [facility],[address] [place], [place] [id number] LIPID PROFILEon 10-08-2024 Cholesterol [Mass/Vol] 244 mg/dL High 0 - 240 [facility] Comment on above: Performed By: #### 2 14774 #### [facility],[address] [place], [place] [address] Cholesterol in HDL [Mass/Vol] 57 mg/dL Normal 40 - 60 [facility] Comment on above: Performed By: #### 2 51075 #### [facility],[address] [place], [place] [address] Cholesterol in LDL [Mass/Vol] 158 mg/dL High 0 - 129 [facility] Comment on above: Performed By: #### 2 72088 #### [facility],[address] [place] [address] 34331 Cholesterol.total/Cho lesterol in HDL [Mass ratio] 4.3 {ratio} Normal 0.0 - 5.0 [facility] Comment on above: Performed By: #### 2 82628 #### [facility],[address] [place] [address] 14305 Lipid 1996 panel Normal [facility] Comment on above: Result Comment: LIPI D PROFILE Performed By: #### 2 69355 #### [facility],[address] [place], [place] [address] Triglyceride [Mass/Vol] 143 mg/dL Normal 0 - 150 [facility] Comment on above: Performed By: #### 2 91426 #### [facility],[address] [place] [address] 81456 TSHon 10-08-2024 TSH Qn 2.41 m[IU]/L Normal 0.35 - 3.74 [facility] Comment on above: Performed By: #### 2 28616 #### [facility],[address] [place] [address] 48201 URINALYSISon 10-08-2024 Bilirubin Ql (U) Negative Normal NORMAL: NEGATIVE [facility] Comment on above: Performed By: #### 2 37327 #### [facility],[address] [place] [address] 10711 Clarity (U) clear Normal NORMAL: CLEAR [facility] Comment on above: Performed By: #### 2 48558 #### [facility],[address] [place] [address] 68371 Color (U) yellow Normal NORMAL: YELLOW [facility] Comment on above: Performed By: #### 2 99068 #### [facility],[address] [place] [address] 18166 Glucose Ql (U) NORM Normal NORMAL: NORMAL [facility] Comment on above: Performed By: #### 2 34277 #### [facility],[address] [place] [address] 45138 Hemoglobin Ql (U) Negative Normal NORMAL: NEGATIVE [facility] Comment on above: Performed By: #### 2 07472 #### [facility],[address] [place] [address] 52677 Ketone Negative Normal NORMAL: NEGATIVE [facility] Comment on above: Performed By: #### 2 28458 #### [facility],[address] [place] [address] 56547 Leukocytes Negative Normal NORMAL: NEGATIVE [facility] Comment on above: Performed By: #### 2 44129 #### [facility],[address] [place] [address] 19191 Nitrite Ql (U) Negative Normal NORMAL: NEGATIVE [facility] Comment on above: Performed By: #### 2 24400 #### [facility],[address] [place] [address] 16963 pH (U) 6 [pH] Normal NORMAL: 5.0-8.0 [facility] Comment on above: Performed By: #### 2 96547 #### [facility],[address] [place] [address] 92181 Protein Ql (U) Negative Normal NORMAL: NEGATIVE [facility] Comment on above: Performed By: #### 2 84027 #### [facility],[address] [place] [address] 39136 Sp [place] 1.015 Normal NORMAL: 1.010-1.030 [facility] Comment on above: Performed By: #### 2 73708 #### [facility],[address] [place] [address] 61701 Specimen Type R Normal [facility] Comment on above: Performed By: #### 2 15855 #### [facility],[address] [place] [address] 16779 Urinalysis dipstick W Reflex Microscopic panel (U) NOT INDICATED Normal [facility] Comment on above: Performed By: #### 2 29294 #### [facility],[address] [place] [address] 38210 Urobilinog NORM Normal NORMAL: NORMAL [facility] Comment on above: Performed By: #### 2 54128 #### [facility],[address] [place] [address] 34691 HbA1c (Bld)on 07-12-2023 Average glucose Estimated from glycated hemoglobin (Bld) [Mass/Vol] 105 mg/dL Normal [facility] Comment on above: Order Comment: Speci men Type: BLOOD SPECIMEN Ordering Facility: [facility] Address: [address] [place] [address] Result Comment: eAG: (Estimated average glucose) is a calculated value from HgbA1c and is traffic workforce representative of the average blood glucose level in the last 2-3 month period. Performed By: #### 5 5454-3 #### [facility] CLIA [id number] [address] [place] [address] [place] HbA1c (Bld) [Mass fraction] 5.3 % Normal 4.3-5.6 [facility] Comment on above: Order Comment: Speci men Type: BLOOD SPECIMEN Ordering Facility: [facility] Address: [address] [place] [address] Result Comment: Amer [place] Diabetes Association guidelines indicate that patients with HgbA1c in the range 5.7-6.4% are at increased risk for development of diabetes, and intervention by lifestyle modification may be beneficial. HgbA1c greater or equal to 6.5% is considered diagnostic of diabetes. Performed By: #### 5 5454-3 #### [facility] CLIA [id number] [address] [place] [address] [place] BETAAon 04-28-2023 Beta-2 Glycoprotein Abs, IgA <10 Normal <=20 [facility] ([place] Comment on above: Result Comment: Perf ormed By: [address] [place] [address] Carbon Cleaner: Dontrell Arce MD, PhD Performed By: #### A PTT #### [place] [address] APCVon 04-27-2023 APC Factor V Resistance 2.9 ratio Normal [facility] ([place]) Comment on above: Result Comment: This APCV result demonstrates no Resistance to Activated Protein C. APC Factor V Resistance Reference Range: <= 2.3 Positive > 2.3 Negative Performed By: #### A PTT #### [place] [address] CIRANon 04-27-2023 Dil Deep Viper Venom 46.2 seconds High 30.0-42.0 [facility] ([place] Comment on above: Result Comment: DRVV T Confirmation Test Performed: NEGATIVE Performed By: #### A PTT #### [place] [address] LA Interpretation See Below Normal [facility] ([place]) Comment on above: Result Comment: No e vidence of lupus anticoagulant. Although results may represent valid findings for Lupus Anticoagulant, DRVVT results may be affected by presence of direct thrombin inhibitors, such as argatroban, dabigatran (Pradaxa) and Bivalirudin (Angiomax),and direct Xa inhibitors, such as rivaroxaban (Xarelto) and apixaban (Eliquis). Interpret Lupus Anticoagulant results with clinical correlation. Performed By: #### A PTT #### [place] [address] Platelet neutraliz. Negative Normal [facility] ([place]) Comment on above: Performed By: #### A PTT #### [place] [address] PTGENon 04-27-2023 PT Gene Mut Prothrombin Gene Mutation Normal [facility] ([place] Comment on above: Result Comment: Byron alexander Accession Number: [id number] Result: NORMAL Interpretation: The DNA sample is negative for the c.*97G>A variant (legacy name 39554O>A) in the 3' untranslated region of the Factor II (F2) gene. This result is not associated with an increased risk of thromboembolic disease. Thromboembolic disease is a multifactorial disorder and other causes are not excluded by this result. Methodology: Isolated Genomic DNA from the patient's blood specimen is evaluated for the c*97G>A ([id number]) variant of the F2 gene [RefSeq [id number];GRCh38/hg38] by multiplex polymerase chain reaction (PCR) followed by melting curve analysis. Limitations: This assay is designed to detect the c.*97G>A (48646B>A) variant in the F2 gene. Uncommon variants or single nucleotide polymorphisms may affect binding of probes and may rarely result in false negative, false positive or indeterminate results. This assay does not detect other disease-associated rare variants in F2 or other causes of thromboembolic disease. Disclaimer: This test was developed and its performance characteristics determined by [facility] [place] ([facility]). It has not been cleared or approved by the FDA. [facility] is regulated under CLIA as certified to perform high- complexity testing. This test is used for clinical purposes. It should not be regarded as investigational or for research. Testing [place] [address]. CLIA Number: [id number] References: 1) Inheritied Thrombophilias in . ACOG Practice Bulletin. No. 197. [place] [employer] and Gynecologists. [facility] Gynecol 2018;132:e18-34. 2) Jjt SR, Desiree FR, Maia PH, and Yun MARISCAL. A common genetic variation in the 3'-untranslated region of the prothrombin gene is associated with elevated plasma prothrombin levels and an increase in venous thrombosis. Blood 88:3698-703, 1995. 3) Ebony I, Segundo V, Amie C, Chiara K. Prothrombin 19502Y>T: 16 new cases, association with the 53922Y>G polymorphism, and literature review. J Thromb Haemost. 2009;9:1585-7. As reviewed by Opal Tucker, PhD, HCLD Performed By: [employer] [address] [place] [address]. [place] [address] Director Of Logistics: Felix RAY#: [id number] Performed By: #### A PTT #### [address] [address] .Auto Diffon 04-26-2023 Basophil, Absolute 0.1 10 3/mcL Normal 0.0-0.3 Pending sale to [facility] ([place] Comment on above: Performed By: #### A PTT, CBC, ANEU, ADIFF #### [address] [address] Basophils/100 WBC (Bld) 1.2 % Normal 0.0-2.5 [facility] ([place] Comment on above: Performed By: #### A PTT, CBC, ANEU, ADIFF #### [address] [address] Eosinophil, Absolute 0.1 10 3/mcL Normal 0.0-0.7 [facility] ([place] Comment on above: Performed By: #### A PTT, CBC, ANEU, ADIFF #### [address] [address] Eosinophils/100 WBC (Bld) 1.4 % Normal 0.0-6.0 [facility] ([place] Comment on above: Performed By: #### A PTT, CBC, ANEU, ADIFF #### [address] [address] Lymphocyte, Absolute 1.4 10 3/mcL Normal 0.9-4.3 [facility] ([place] Comment on above: Performed By: #### A PTT, CBC, ANEU, ADIFF #### [address] [address] Lymphocytes/100 WBC (Bld) 13.7 % Low 20.0-40.0 [facility] ([place] Comment on above: Performed By: #### A PTT, CBC, ANEU, ADIFF #### [address] [address] Monocyte, Absolute 0.7 10 3/mcL Normal 0.1-1.4 Pending sale to [facility] ([place] Comment on above: Performed By: #### A PTT, CBC, ANEU, ADIFF #### [address] [address] Monocytes/100 WBC (Bld) 7.2 % Normal 2.0-13.0 [facility] ([place] Comment on above: Performed By: #### A PTT, CBC, ANEU, ADIFF #### [address] [address] Neutrophils/100 WBC (Bld) 76.5 % High 50.0-75.0 [facility] ([place] Comment on above: Performed By: #### A PTT, CBC, ANEU, ADIFF #### [address] [address] .GFRon 04-26-2023 GFR Non- >60 Normal [facility] ([place] Comment on above: Result Comment: GFR Population [...] #### A PTT, CBC, ANEU, ADIFF #### [address] [address] GFR >60 Normal Pending sale to [facility] ([place] Comment on above: Result Comment: GFR Population [...] #### A PTT, CBC, ANEU, ADIFF #### [address] [address] .NEUABSon 04-26-2023 Neutrophil, Absolute 7.6 10 3/mcL Normal 2.3-8.1 [facility] ([place] Comment on above: Performed By: #### A PTT, CBC, ANEU, ADIFF #### [address] [address] APTTon 04-26-2023 aPTT Coag (Bld) [Time] 54.6 s High 25.0-35.0 [facility] ([place] Comment on above: Result Comment: For Heparin anticoagulation therapy, the recommended therapeutic range is: 54-77 seconds (APTT Correlation with Anti-Xa therapeutic range of 0.3-0.7 units/ml). PLEASE REFERENCE THE PHARMACY PROTOCOL FOR DOSING. Performed By: #### A PTT, CBC, ANEU, ADIFF #### [address] [address] Heparin dose (APTT) Heparin IV Normal [facility] ([place] Comment on above: Performed By: #### A PTT, CBC, ANEU, ADIFF #### [address] [address] AT3on 04-26-2023 Anti-Thrombin III 83 % Low 84-126 [facility] ([place] Comment on above: Performed By: #### A PTT, CBC, ANEU, ADIFF #### [address] [address] BMPon 04-26-2023 BUN/Creatinine Ratio 30.3 ratio High 10.0-22.0 Pending sale to [facility] ([place] Comment on above: Performed By: #### A PTT, CBC, ANEU, ADIFF #### [address] [address] Calcium [Mass/Vol] 8.5 mg/dL Low 8.7-10.4 [facility] ([place] Comment on above: Performed By: #### A PTT, CBC, ANEU, ADIFF #### [address] [address] Chloride [Moles/Vol] 105 mmol/L Normal 98-110 Pending sale to [facility] [place] Comment on above: Performed By: #### A PTT, CBC, ANEU, ADIFF #### [address] [address] CO2 [Moles/Vol] 23 mmol/L Normal 22-32 [facility] ([place] Comment on above: Performed By: #### A PTT, CBC, ANEU, ADIFF #### [address] [address] Creatinine [Mass/Vol] 0.66 mg/dL Normal 0.50-1.20 [facility] ([place] Comment on above: Performed By: #### A PTT, CBC, ANEU, ADIFF #### [address] [address] Electrolyte Balance 10.0 mEq/L Normal 4.0-15.0 [facility] ([place] Comment on above: Performed By: #### A PTT, CBC, ANEU, ADIFF #### [address] [address] Glucose [Mass/Vol] 112 mg/dL Normal 82-115 [facility] ([place] Comment on above: Performed By: #### A PTT, CBC, ANEU, ADIFF #### [address] [address] Potassium [Moles/Vol] 3.0 mmol/L Low 3.5-5.0 [facility] ([place] Comment on above: Performed By: #### A PTT, CBC, ANEU, ADIFF #### [address] [address] Sodium [Moles/Vol] 138 mmol/L Normal 136-145 [facility] ([place] Comment on above: Performed By: #### A PTT, CBC, ANEU, ADIFF #### [address] [address] Urea nitrogen [Mass/Vol] 20.0 mg/dL Normal 8.0-22.0 [facility] ([place] Comment on above: Performed By: #### A PTT, CBC, ANEU, ADIFF #### [address] 04-26-2023 IgG Cardiolipin Ab <9.0 Normal <15.0 [facility] ([place] Comment on above: Result Comment: <15 GPL [...] Clinical correlation is required. Performed By: [facility] [place] [address] Director Of Logistics: Felix See III, M.D. CLIA#: [id number] Performed By: #### A PTT #### [address] 04-26-2023 IgM Cardiolipin Ab <9.0 Normal <12.5 [facility] ([place] Comment on above: Result Comment: <12. 5 [...] Clinical correlation is required. Performed By: [facility] [place] [address] Director Of Logistics: Felix See III, M.D. CLIA#: [id number] Performed By: #### A PTT #### [address] [address] CBCon 04-26-2023 Erythrocyte distribution width (RBC) [Ratio] 14.2 % Normal 11.5-15.5 [facility] ([place] Comment on above: Performed By: #### A PTT, CBC, ANEU, ADIFF #### [place] [id number] Hematocrit (Bld) [Volume fraction] 36.2 % Normal 34.0-46.0 [facility] ([place] Comment on above: Performed By: #### A PTT, CBC, ANEU, ADIFF #### [place] [id number] Hgb 12.4 G/dL Normal 12.0-16.0 [facility] ([place] Comment on above: Performed By: #### A PTT, CBC, ANEU, ADIFF #### [place] [id number] MCH (RBC) [Entitic mass] 29.2 pg Normal 27.0-33.0 [facility] ([place] Comment on above: Performed By: #### A PTT, CBC, ANEU, ADIFF #### [place] [id number] MCHC 34.1 G/dL Normal 32.0-36.0 [facility] ([place] Comment on above: Performed By: #### A PTT, CBC, ANEU, ADIFF #### [place] [id number] MCV (RBC) [Entitic vol] 85.6 fL Normal 80.0-99.0 [facility] ([place] Comment on above: Performed By: #### A PTT, CBC, ANEU, ADIFF #### [place] [id number] Platelet 144 10 3/mcL Low 150-450 [facility] ([place] Comment on above: Performed By: #### A PTT, CBC, ANEU, ADIFF #### [place] [id number] Platelet mean volume (Bld) [Entitic vol] 7.6 fL Normal 6.6-10.5 [facility] ([place] Comment on above: Performed By: #### A PTT, CBC, ANEU, ADIFF #### [address] [address] RBC 4.24 10 6/mcL Normal 4.10-5.30 [facility] ([place] Comment on above: Performed By: #### A PTT, CBC, ANEU, ADIFF #### [address] [address] WBC 9.9 10 3/mcL Normal 4.5-10.8 [facility] ([place] Comment on above: Performed By: #### A PTT, CBC, ANEU, ADIFF #### [address] [address] LABORATORYOrdered By: Amairani Jhaveri on 04-26-2023 aPTT [...] 04-26-2023 Protein C 98 % Normal >=80 [facility] ([place] Comment on above: Performed By: #### A PTT, CBC, ANEU, ADIFF #### [address] [address] PRSFAon 04-26-2023 Protein S Free Antigen 85 % Normal 55-124 [facility] ([place] Comment on above: Result Comment: Prot ein S Type II deficiency (very rare) is not detected by this assay. (Pathophysiology of Haemostasis and Thrombosis 04: 33:202-205 and Thrombosis Haemostasis 2000; 84:918) Performed By: #### A PTT, CBC, ANEU, ADIFF #### [address] [address] .Auto Diffon 04-25-2023 Basophil, Absolute 0.1 10 3/mcL Normal 0.0-0.3 Pending sale to [facility] ([place] Comment on above: Performed By: #### A PTT, CBC, ANEU, ADIFF #### [address] [address] Basophils/100 WBC (Bld) 0.5 % Normal 0.0-2.5 [facility] [place] Comment on above: Performed By: #### A PTT, CBC, ANEU, ADIFF #### [address] [address] Eosinophil, Absolute 0.0 10 3/mcL Normal 0.0-0.7 [facility] ([place] Comment on above: Performed By: #### A PTT, CBC, ANEU, ADIFF #### [address] [address] Eosinophils/100 WBC (Bld) 0.2 % Normal 0.0-6.0 [facility] ([place] Comment on above: Performed By: #### A PTT, CBC, ANEU, ADIFF #### [address] [address] Lymphocyte, Absolute 1.3 10 3/mcL Normal 0.9-4.3 [facility] ([place]) Comment on above: Performed By: #### A PTT, CBC, ANEU, ADIFF #### [address] [address] Lymphocytes/100 WBC (Bld) 11.1 % Low 20.0-40.0 [facility] ([place]) Comment on above: Performed By: #### A PTT, CBC, ANEU, ADIFF #### [address] [address] Monocyte, Absolute 0.8 10 3/mcL Normal 0.1-1.4 Pending sale to [facility] ([place] Comment on above: Performed By: #### A PTT, CBC, ANEU, ADIFF #### [address] [address] Monocytes/100 WBC (Bld) 6.9 % Normal 2.0-13.0 [facility] ([place]) Comment on above: Performed By: #### A PTT, CBC, ANEU, ADIFF #### [address] [address] Neutrophils/100 WBC (Bld) 81.3 % High 50.0-75.0 [facility] ([place]) Comment on above: Performed By: #### A PTT, CBC, ANEU, ADIFF #### [address] [address] .GFRon 04-25-2023 GFR Non- >60 Normal [facility] ([place]) Comment on above: Result Comment: GFR [...] #### A PTT, CBC, ANEU, ADIFF #### [address] [address] GFR >60 Normal Pending sale to [facility] ([place] Comment on above: Result Comment: GFR Population [...] #### A PTT, CBC, ANEU, ADIFF #### [address] [address] .NEUABSon 04-25-2023 Neutrophil, Absolute 9.4 10 3/mcL High 2.3-8.1 [facility] ([place] Comment on above: Performed By: #### A PTT, CBC, ANEU, ADIFF #### [address] [address] A1Con 04-25-2023 HbA1c (Bld) [Mass fraction] 5.4 % Normal 4.0-6.0 [facility] ([place] Comment on above: Performed By: #### A PTT #### [address] [address] ANAon 04-25-2023 Nuclear Ab IF (S) [Titer] 40 {titer} Normal Neg 40 [facility] ([place] Comment on above: Result Comment: OLIVER Screen and Titer methodology is an immunofluorescent technique utilizing Hep2 Substrate. Performed By: #### A PTT, CBC, ANEU, ADIFF #### [place] [id number] APTTon 04-25-2023 aPTT Coag (Bld) [Time] 55.7 s High 25.0-35.0 [facility] ([place] Comment on above: Result Comment: For Heparin anticoagulation therapy, the recommended therapeutic range is: 54-77 seconds (APTT Correlation with Anti-Xa therapeutic range of 0.3-0.7 units/ml). PLEASE REFERENCE THE PHARMACY PROTOCOL FOR DOSING. Performed By: #### A PTT #### [place] [address] Heparin dose (APTT) Unknown Normal [facility] ([place] Comment on above: Performed By: #### A PTT #### [place] [id number] aPTT Coag (Bld) [Time] 56.9 s High 25.0-35.0 [facility] ([place] Comment on above: Result Comment: For Heparin anticoagulation therapy, the recommended therapeutic range is: 54-77 seconds (APTT Correlation with Anti-Xa therapeutic range of 0.3-0.7 units/ml). PLEASE REFERENCE THE PHARMACY PROTOCOL FOR DOSING. Performed By: #### A PTT, CBC, ANEU, ADIFF #### [address] [address] Heparin dose (APTT) Heparin IV Normal [facility] ([place] Comment on above: Performed By: #### A PTT, CBC, ANEU, ADIFF #### [place] [id number] aPTT Coag (Bld) [Time] 52.6 s High 25.0-35.0 [facility] ([place] Comment on above: Result Comment: For Heparin anticoagulation therapy, the recommended therapeutic range is: 54-77 seconds (APTT Correlation with Anti-Xa therapeutic range of 0.3-0.7 units/ml). PLEASE REFERENCE THE PHARMACY PROTOCOL FOR DOSING. Performed By: #### A PTT #### [address] [address] Heparin dose (APTT) Heparin IV Normal [facility] ([place] Comment on above: Performed By: #### A PTT #### [address] [address] aPTT Coag (Bld) [Time] 59.4 s High 25.0-35.0 [facility] ([place] Comment on above: Result Comment: For Heparin anticoagulation therapy, the recommended therapeutic range is: 54-77 seconds (APTT Correlation with Anti-Xa therapeutic range of 0.3-0.7 units/ml). PLEASE REFERENCE THE PHARMACY PROTOCOL FOR DOSING. Performed By: #### A PTT, CBC, ANEU, ADIFF #### [address] [address] Heparin dose (APTT) Heparin IV Normal [facility] ([place] Comment on above: Performed By: #### A PTT, CBC, ANEU, ADIFF #### [address] [address] BMPon 04-25-2023 BUN/Creatinine Ratio 35.2 ratio High 10.0-22.0 Pending sale to [facility] ([place] Comment on above: Performed By: #### A PTT, CBC, ANEU, ADIFF #### [address] [address] Calcium [Mass/Vol] 8.7 mg/dL Normal 8.7-10.4 [facility] ([place] Comment on above: Performed By: #### A PTT, CBC, ANEU, ADIFF #### [address] [address] Chloride [Moles/Vol] 105 mmol/L Normal 98-110 Pending sale to [facility] ([place] Comment on above: Performed By: #### A PTT, CBC, ANEU, ADIFF #### [address] [address] CO2 [Moles/Vol] 23 mmol/L Normal 22-32 [facility] ([place] Comment on above: Performed By: #### A PTT, CBC, ANEU, ADIFF #### [address] [address] Creatinine [Mass/Vol] 0.71 mg/dL Normal 0.50-1.20 [facility] ([place] Comment on above: Performed By: #### A PTT, CBC, ANEU, ADIFF #### [address] [address] Electrolyte Balance 11.0 mEq/L Normal 4.0-15.0 [facility] ([place] Comment on above: Performed By: #### A PTT, CBC, ANEU, ADIFF #### [address] [address] Glucose [Mass/Vol] 127 mg/dL High 82-115 [facility] ([place] Comment on above: Performed By: #### A PTT, CBC, ANEU, ADIFF #### [address] [address] Potassium [Moles/Vol] 3.2 mmol/L Low 3.5-5.0 [facility] ([place] Comment on above: Performed By: #### A PTT, CBC, ANEU, ADIFF #### [address] [address] Sodium [Moles/Vol] 139 mmol/L Normal 136-145 [facility] ([place] Comment on above: Performed By: #### A PTT, CBC, ANEU, ADIFF #### [address] [address] Urea nitrogen [Mass/Vol] 25.0 mg/dL High 8.0-22.0 [facility] ([place] Comment on above: Performed By: #### A PTT, CBC, ANEU, ADIFF #### [address] [address] CBCon 04-25-2023 Erythrocyte distribution width (RBC) [Ratio] 14.2 % Normal 11.5-15.5 [facility] ([place] Comment on above: Performed By: #### A PTT, CBC, ANEU, ADIFF #### [place] [address] Hematocrit (Bld) [Volume fraction] 36.3 % Normal 34.0-46.0 [facility] ([place] Comment on above: Performed By: #### A PTT, CBC, ANEU, ADIFF #### [place] [address] Hgb 12.3 G/dL Normal 12.0-16.0 [facility] ([place] Comment on above: Performed By: #### A PTT, CBC, ANEU, ADIFF #### [place] [id number] MCH (RBC) [Entitic mass] 29.0 pg Normal 27.0-33.0 [facility] ([place] Comment on above: Performed By: #### A PTT, CBC, ANEU, ADIFF #### [place] [address] MCHC 33.8 G/dL Normal 32.0-36.0 [facility] ([place] Comment on above: Performed By: #### A PTT, CBC, ANEU, ADIFF #### [place] [address] MCV (RBC) [Entitic vol] 85.9 fL Normal 80.0-99.0 [facility] ([place] Comment on above: Performed By: #### A PTT, CBC, ANEU, ADIFF #### [place] [id number] Platelet 164 10 3/mcL Normal 150-450 [facility] ([place] Comment on above: Performed By: #### A PTT, CBC, ANEU, ADIFF #### [place] [phone] Platelet mean volume (Bld) [Entitic vol] 7.7 fL Normal 6.6-10.5 [facility] ([place] Comment on above: Performed By: #### A PTT, CBC, ANEU, ADIFF #### [place] [id number] RBC 4.22 10 6/mcL Normal 4.10-5.30 [facility] ([place] Comment on above: Performed By: #### A PTT, CBC, ANEU, ADIFF #### [address] [address] WBC 11.5 10 3/mcL High 4.5-10.8 [facility] ([place] Comment on above: Performed By: #### A PTT, CBC, ANEU, ADIFF #### [place] [phone] [address] [place] [address] LABORATORYOrdered By: Aysha Ramirez on 04-25-2023 aPTT [...] 04-25-2023 Magnesium [Mass/Vol] 2.3 mg/dL Normal 1.6-2.4 Pending sale to [facility] ([place] Comment on above: Performed By: #### A PTT, CBC, ANEU, ADIFF #### [address] [address] PHOSon 04-25-2023 Phosphate [Mass/Vol] 2.9 mg/dL Normal 2.4-5.1 Pending sale to [facility] ([place] Comment on above: Result Comment: No te - New Reference Range in effect 20 Performed By: #### A PTT, CBC, ANEU, ADIFF #### [address] [address] XR CHEST 1 VIEWon 04-25-2023 XR CHEST [...] 04/25/2023 7:41:49 AM Ordering Provider: BUD Rich [facility] ([place]) .Auto Diffon 04-24-2023 Basophil, Absolute 0.0 10 3/mcL Normal 0.0-0.3 Pending sale to [facility] [place] Comment on above: Performed By: #### A PTT, CBC, ANEU, ADIFF #### [address] [address] Basophils/100 WBC (Bld) 0.3 % Normal 0.0-2.5 [facility] [place] Comment on above: Performed By: #### A PTT, CBC, ANEU, ADIFF #### [address] [address] Eosinophil, Absolute 0.0 10 3/mcL Normal 0.0-0.7 [facility] ([place] Comment on above: Performed By: #### A PTT, CBC, ANEU, ADIFF #### [address] [address] Eosinophils/100 WBC (Bld) 0.3 % Normal 0.0-6.0 [facility] ([place] Comment on above: Performed By: #### A PTT, CBC, ANEU, ADIFF #### [address] [address] Lymphocyte, Absolute 0.8 10 3/mcL Low 0.9-4.3 [facility] ([place] Comment on above: Performed By: #### A PTT, CBC, ANEU, ADIFF #### [address] [address] Lymphocytes/100 WBC (Bld) 6.9 % Low 20.0-40.0 [facility] [place] Comment on above: Performed By: #### A PTT, CBC, ANEU, ADIFF #### [address] [address] Monocyte, Absolute 0.7 10 3/mcL Normal 0.1-1.4 Pending sale to [facility] [place] Comment on above: Performed By: #### A PTT, CBC, ANEU, ADIFF #### [address] [address] Monocytes/100 WBC (Bld) 6.0 % Normal 2.0-13.0 [facility] [place] Comment on above: Performed By: #### A PTT, CBC, ANEU, ADIFF #### [address] [address] Neutrophils/100 WBC (Bld) 86.5 % High 50.0-75.0 [facility] [place] Comment on above: Performed By: #### A PTT, CBC, ANEU, ADIFF #### [address] [address] .GFRon 04-24-2023 GFR >60 Normal Pending [facility] to [facility] ([place] Comment on above: Result Comment: GFR Population [...] BC, GFR, ANEU, ADIFF, PBNP, CMP #### [address] [address] GFR Non- >60 Normal [facility] ([place] Comment on above: Result Comment: GFR Population [...] BC, GFR, ANEU, ADIFF, PBNP, CMP #### [address] [address] .NEUABSon 04-24-2023 Neutrophil, Absolute 10.0 10 3/mcL High 2.3-8.1 A [facility] ([place] Comment on above: Performed By: #### A PTT, CBC, ANEU, ADIFF #### [place] [address] APTTon 04-24-2023 aPTT Coag (Bld) [Time] 38.2 s High 25.0-35.0 [facility] ([place] Comment on above: Result Comment: For Heparin anticoagulation therapy, the recommended therapeutic range is: 54-77 seconds (APTT Correlation with Anti-Xa therapeutic range of 0.3-0.7 units/ml). PLEASE REFERENCE THE PHARMACY PROTOCOL FOR DOSING. Performed By: #### A PTT, CBC, ANEU, ADIFF #### [place] [address] Heparin dose (APTT) Unknown Normal [facility] ([place] Comment on above: Performed By: #### A PTT, CBC, ANEU, ADIFF #### [address] [address] aPTT Coag (Bld) [Time] 52.8 s High 25.0-35.0 [facility] ([place] Comment on above: Result Comment: For Heparin anticoagulation therapy, the recommended therapeutic range is: 54-77 seconds (APTT Correlation with Anti-Xa therapeutic range of 0.3-0.7 units/ml). PLEASE REFERENCE THE PHARMACY PROTOCOL FOR DOSING. Performed By: #### C BC, GFR, ANEU, ADIFF, PBNP, CMP #### [address] [address] Heparin dose (APTT) Heparin IV Normal [facility] ([place] Comment on above: Performed By: #### C BC, GFR, ANEU, ADIFF, PBNP, CMP #### [address] [address] aPTT Coag (Bld) [Time] 102.1 s High 25.0-35.0 [facility] ([place] Comment on above: Result Comment: For Heparin anticoagulation therapy, the recommended therapeutic range is: 54-77 seconds (APTT Correlation with Anti-Xa therapeutic range of 0.3-0.7 units/ml). PLEASE REFERENCE THE PHARMACY PROTOCOL FOR DOSING. Performed By: #### A PTT, CBC, ANEU, ADIFF #### [place] [phone] Heparin dose (APTT) Heparin IV Normal [facility] ([place] Comment on above: Performed By: #### A PTT, CBC, ANEU, ADIFF #### [address] [address] CBCon 04-24-2023 Erythrocyte distribution width (RBC) [Ratio] 13.8 % Normal 11.5-15.5 [facility] ([place] Comment on above: Performed By: #### A PTT, CBC, ANEU, ADIFF #### [address] [address] Hematocrit (Bld) [Volume fraction] 39.3 % Normal 34.0-46.0 [facility] ([place] Comment on above: Performed By: #### A PTT, CBC, ANEU, ADIFF #### [address] [address] Hgb 13.3 G/dL Normal 12.0-16.0 [facility] ([place] Comment on above: Performed By: #### A PTT, CBC, ANEU, ADIFF #### [address] [address] MCH (RBC) [Entitic mass] 29.1 pg Normal 27.0-33.0 [facility] ([place] Comment on above: Performed By: #### A PTT, CBC, ANEU, ADIFF #### [place] [address] MCHC 33.7 G/dL Normal 32.0-36.0 [facility] [place] Comment on above: Performed By: #### A PTT, CBC, ANEU, ADIFF #### [place] [address] MCV (RBC) [Entitic vol] 86.2 fL Normal 80.0-99.0 [facility] [place] Comment on above: Performed By: #### A PTT, CBC, ANEU, ADIFF #### [place] [id number] Platelet 176 10 3/mcL Normal 150-450 [facility] ([place] Comment on above: Performed By: #### A PTT, CBC, ANEU, ADIFF #### [place] [address] Platelet mean volume (Bld) [Entitic vol] 7.9 fL Normal 6.6-10.5 [facility] [place] Comment on above: Performed By: #### A PTT, CBC, ANEU, ADIFF #### [place] [address] RBC 4.56 10 6/mcL Normal 4.10-5.30 [facility] ([place] Comment on above: Performed By: #### A PTT, CBC, ANEU, ADIFF #### [place] [id number] WBC 11.6 10 3/mcL High 4.5-10.8 [facility] ([place] Comment on above: Performed By: #### A PTT, CBC, ANEU, ADIFF #### [place] [address] CMPon 04-24-2023 Albumin Level 3.3 G/dL Normal 3.2-4.8 [facility] ([place] Comment on above: Order Comment: redra w due to hemolysis Performed By: #### C BC, GFR, ANEU, ADIFF, PBNP, CMP #### [address] [address] Albumin/Globulin [Mass ratio] 0.9 {ratio} Normal 0.9-1.6 [facility] ([place] Comment on above: Order Comment: redra w due to hemolysis Performed By: #### C BC, GFR, ANEU, ADIFF, PBNP, CMP #### [address] [address] ALP [Catalytic activity/Vol] 130 U/L High 38-126 [facility] ([place] Comment on above: Order Comment: redra w due to hemolysis Performed By: #### C BC, GFR, ANEU, ADIFF, PBNP, CMP #### [address] [address] ALT [Catalytic activity/Vol] 24 U/L Normal 10-49 [facility] ([place] Comment on above: Order Comment: redra w due to hemolysis Performed By: #### C BC, GFR, ANEU, ADIFF, PBNP, CMP #### [place] [id number] AST [Catalytic activity/Vol] 20 U/L Normal 8-34 [facility] [place] Comment on above: Order Comment: redra w due to hemolysis Performed By: #### C BC, GFR, ANEU, ADIFF, PBNP, CMP #### [address] [address] Bili Total 0.60 mg/dL Normal 0.20-1.20 [facility] ([place]) Comment on above: Order Comment: redra w due to hemolysis Result Comment: Use of this assay is not recommended for patients undergoing treatment with eltrombopag due to the potential for falsely elevated results. Performed By: #### C BC, GFR, ANEU, ADIFF, PBNP, CMP #### [place] [id number] BUN/Creatinine Ratio 28.8 ratio High 10.0-22.0 Pending sale to [facility] ([place]) Comment on above: Order Comment: redra w due to hemolysis Performed By: #### C BC, GFR, ANEU, ADIFF, PBNP, CMP #### [address] [address] Calcium [Mass/Vol] 9.0 mg/dL Normal 8.7-10.4 [facility] ([place]) Comment on above: Order Comment: redra w due to hemolysis Performed By: #### C BC, GFR, ANEU, ADIFF, PBNP, CMP #### [address] [address] Chloride [Moles/Vol] 104 mmol/L Normal 98-110 Pending sale to [facility] ([place]) Comment on above: Order Comment: redra w due to hemolysis Performed By: #### C BC, GFR, ANEU, ADIFF, PBNP, CMP #### [address] [address] CO2 [Moles/Vol] 24 mmol/L Normal 22-32 [facility] ([place] Comment on above: Order Comment: redra w due to hemolysis Performed By: #### C BC, GFR, ANEU, ADIFF, PBNP, CMP #### [address] [address] Creatinine [Mass/Vol] 0.73 mg/dL Normal 0.50-1.20 [facility] ([place]) Comment on above: Order Comment: redra w due to hemolysis Performed By: #### C BC, GFR, ANEU, ADIFF, PBNP, CMP #### [address] [address] Electrolyte Balance 10.0 mEq/L Normal 4.0-15.0 [facility] ([place]) Comment on above: Order Comment: redra w due to hemolysis Performed By: #### C BC, GFR, ANEU, ADIFF, PBNP, CMP #### [address] [address] Globulin 3.5 G/dL Normal 1.5-3.8 [facility] ([place] Comment on above: Order Comment: redra w due to hemolysis Performed By: #### C BC, GFR, ANEU, ADIFF, PBNP, CMP #### [address] [address] Glucose [Mass/Vol] 130 mg/dL High 82-115 [facility] ([place]) Comment on above: Order Comment: redra w due to hemolysis Performed By: #### C BC, GFR, ANEU, ADIFF, PBNP, CMP #### [place] [id number] Potassium [Moles/Vol] 4.1 mmol/L Normal 3.5-5.0 [facility] ([place]) Comment on above: Order Comment: redra w due to hemolysis Performed By: #### C BC, GFR, ANEU, ADIFF, PBNP, CMP #### [place] [id number] Sodium [Moles/Vol] 138 mmol/L Normal 136-145 [facility] ([place]) Comment on above: Order Comment: redra w due to hemolysis Performed By: #### C BC, GFR, ANEU, ADIFF, PBNP, CMP #### [place] [address] Total Protein 6.8 G/dL Normal 5.7-8.2 [facility] ([place] Comment on above: Order Comment: redra w due to hemolysis Result Comment: No te - New Reference Range in effect 20 Performed By: #### C BC, GFR, ANEU, ADIFF, PBNP, CMP #### [place] [address] Urea nitrogen [Mass/Vol] 21.0 mg/dL Normal 8.0-22.0 [facility] ([place] Comment on above: Order Comment: redra w due to hemolysis Performed By: #### C BC, GFR, ANEU, ADIFF, PBNP, CMP #### [address] [address] HOMOon 04-24-2023 Homocysteine 10.5 umol/l Normal 3.7-13.9 [facility] ([place] Comment on above: Result Comment: No te - New Reference Range in effect 20 Performed By: #### A PTT, CBC, ANEU, ADIFF #### [place] [id number] IR PULMONARY ANGIO/EKOS CATH PLACEon 04-24-[address]ARY ANGIO/EKOS CATH PLACE ORIGINAL Images acquired, not reported on this accession number. Normal [facility] ([place]) LABORATORYOrdered By: SYSTEM SYSTEM on 04-24-2023 Albumin [...] on above: Result Comment: Perf ormed By: [address] [place] [address] Carbon Cleaner: Dontrell Arce MD, PhD IgG Cardiolipin Ab GPL Invalid Interpretation Code <15.0GPL Sendouts SS Comment on above: Result Comment: <15 GPL Negative 15-20 GPL Indeterminate >20 GPL Positive The following results were obtained with the [employer] QUANTA Lite RYANNE IgG III TRISH. Cardiolipin [...] others. Clinical correlation is required. Performed By: [place] [address] Director Of Logistics: Felix See III, M.D. IA#: [id number] IgM Cardiolipin Ab MPL Invalid Interpretation Code [...] others. Clinical correlation is required. Performed By: [facility] [address] [place] [address] Director Of Logistics: Felix See III, M.D. CLIA#: [id number] PT Gene Mut Prothrombin Gene Mutation Invalid Interpretation Code AH Sendouts SS Comment on above: Result Comment: Byron alexander Accession Number: [id number] Result: NORMAL Interpretation: The DNA sample is negative for the c.*97G>A variant (legacy name 88435F>A) in the 3' untranslated region of the Factor II (F2) gene. This result is not associated with an increased risk of thromboembolic disease. Thromboembolic disease is a multifactorial disorder and other causes are not excluded by this result. Methodology: Isolated Genomic DNA from the patient's blood specimen is evaluated for the c*97G>A ([id number]) variant of the F2 gene [RefSeq [id number];GRCh38/hg38] by multiplex polymerase chain reaction (PCR) followed by melting curve analysis. Limitations: This assay is designed to detect the c.*97G>A (86869K>A) variant in the F2 gene. Uncommon variants or single nucleotide polymorphisms may affect binding of probes and may rarely result in false negative, false positive or indeterminate results. This assay does not detect other disease-associated rare variants in F2 or other causes of thromboembolic disease. Disclaimer: This test was developed and its performance characteristics determined by [facility] [place] ([facility]). It has not been cleared or approved by the FDA. [facility] is regulated under CLIA as certified to perform high- complexity testing. This test is used for clinical purposes. It should not be regarded as investigational or for research. Testing and interpretation performed at [facility], [address], [place] [address]. CLIA Number: [id number] References: 1) Inheritied Thrombophilias in . ACOG Practice Bulletin. No. 197. [place] [employer]. Obsete Gynecol 2018;132:e18-34. 2) García SR, Desiree FR, Maia PH, and Yun MARISCAL. A common genetic variation in the 3'-untranslated region of the prothrombin gene is associated with elevated plasma prothrombin levels and an increase in venous thrombosis. Blood 88:3698-703, 1995. 3) Ebony Hernández, Segundo Rosas, Amie Sanders, Chiara Santizo. Prothrombin 87756A>T: 16 new cases, association with the 70548K>G polymorphism, and literature review. J Thromb Haemost. 2009;9:1585-7. As reviewed by Opal Tucker, PhD, HCLD Performed By: [facility]. [place] [address] Director Of Logistics: Felix NAYAKIA#: [id number] LABORATORYOrdered By: Neftali Tijerina on 04-24-2023 Nuclear Ab IF Ql (S) Neg 40 (04/24/23 4:12 PM) Invalid Interpretation Code Neg 40 AH Man Viro/Sero SS LABORATORYOrdered By: Samantha Villasenor on 04-24-2023 Blood Glucose Testing Reason Routine (04/24/23 11:30 AM) [facility] Glucose [Mass/Vol] 131 mg/dL Invalid Interpretation Code 82 - 115 mg/dL [facility] MGon 04-24-2023 Magnesium [Mass/Vol] 2.3 mg/dL Normal 1.6-2.4 Pending sale to [facility] ([place]) Comment on above: Performed By: #### C BC, GFR, ANEU, ADIFF, PBNP, CMP #### [address] [address] PHOSon 04-24-2023 Phosphate [Mass/Vol] 2.5 mg/dL Normal 2.4-5.1 Pending sale to [facility] ([place]) Comment on above: Result Comment: No te - New Reference Range in effect 20 Performed By: #### C BC, GFR, ANEU, ADIFF, PBNP, CMP #### [address] [address] XR CHEST 1 VIEWon 04-24-2023 XR CHEST 1 VIEW ORIGINAL EXAMINATION: ONE XRAY VIEW OF THE CHEST04/24/2023 6:20 pm CHEST ONE VIEW AP/PA COMPARISON: 04/24/2023 HISTORY: ORDERING SYSTEM PROVIDED HISTORY: Reason for Exam: pain/[id number] ^ FINDINGS: Lines/Tubes: None. Interval removal of [...] 04/24/2023 7:18:41 PM Ordering Provider: LEONA MCNAIR [facility]) XR CHEST 1 VIEW ORIGINAL EXAMINATION: ONE [...] 1:23:03 PM Ordering Provider: FELIPE HAWTHORNE [facility] ([place]) APTTon 04-23-2023 aPTT Coag (Bld) [Time] 93.3 s High 25.0-35.0 [facility] ([place]) Comment on above: Result Comment: For Heparin anticoagulation therapy, the recommended therapeutic range is: 54-77 seconds (APTT Correlation with Anti-Xa therapeutic range of 0.3-0.7 units/ml). PLEASE REFERENCE THE PHARMACY PROTOCOL FOR DOSING. Performed By: #### A PTT, CBC, ANEU, ADIFF #### [address] [address] Heparin dose (APTT) Heparin IV Normal [facility] ([place]) Comment on above: Performed By: #### A PTT, CBC, ANEU, ADIFF #### [address] [address] aPTT Coag (Bld) [Time] 59.6 s High 25.0-35.0 [facility] ([place] Comment on above: Result Comment: For Heparin anticoagulation therapy, the recommended therapeutic range is: 54-77 seconds (APTT Correlation with Anti-Xa therapeutic range of 0.3-0.7 units/ml). PLEASE REFERENCE THE PHARMACY PROTOCOL FOR DOSING. Performed By: #### A PTT, CBC, ANEU, ADIFF #### [address] [address] Heparin dose (APTT) Heparin IV Normal [facility] ([place]) Comment on above: Performed By: #### A PTT, CBC, ANEU, ADIFF #### [address] [address] aPTT Coag (Bld) [Time] 76.6 s High 25.0-35.0 [facility] ([place] Comment on above: Result Comment: For Heparin anticoagulation therapy, the recommended therapeutic range is: 54-77 seconds (APTT Correlation with Anti-Xa therapeutic range of 0.3-0.7 units/ml). PLEASE REFERENCE THE PHARMACY PROTOCOL FOR DOSING. Performed By: #### A PTT, CBC, ANEU, ADIFF #### [address] [address] Heparin dose (APTT) Heparin IV Normal [facility] ([place]) Comment on above: Performed By: #### A PTT, CBC, ANEU, ADIFF #### [place] [address] LABORATORYOrdered By: Angeli Shaffer on 04-23-2023 Lactate [...] Lactic Acid Lvl 1.7 mmol/L Normal 0.2-2.0 [facility] ([place] Comment on above: Performed By: #### A PTT, CBC, ANEU, ADIFF #### [place] [address] TROPHSon 04-23-2023 Troponin I High Sensitivity 117.43 ng/L High 0.00-34.00 [facility] ([place] Comment on above: Result Comment: If t he High Sensitive Troponin result is below the 99th percentile value (<45 ng/L) at the first blood draw, at least two additional blood samples should be drawn before results are interpreted as negative for AMI. Performed By: #### A PTT #### [place] [address] Troponin I High Sensitivity 204.26 ng/L High 0.00-34.00 [facility] ([place] Comment on above: Result Comment: If t he High Sensitive Troponin result is below the 99th percentile value (<45 ng/L) at the first blood draw, at least two additional blood samples should be drawn before results are interpreted as negative for AMI. Performed By: #### A PTT, CBC, ANEU, ADIFF #### [place] [address] .Auto Diffon 04-22-2023 Basophil, Absolute 0.0 10 3/mcL Normal 0.0-0.3 Pending sale to [facility] ([place]) Comment on above: Performed By: #### C BC, GFR, ANEU, ADIFF, PBNP, CMP #### [address] [address] Basophils/100 WBC (Bld) 0.2 % Normal 0.0-2.5 [facility] ([place]) Comment on above: Performed By: #### C BC, GFR, ANEU, ADIFF, PBNP, CMP #### [address] [address] Eosinophil, Absolute 0.1 10 3/mcL Normal 0.0-0.7 [facility] ([place]) Comment on above: Performed By: #### C BC, GFR, ANEU, ADIFF, PBNP, CMP #### [address] [address] Eosinophils/100 WBC (Bld) 0.5 % Normal 0.0-6.0 [facility] ([place]) Comment on above: Performed By: #### C BC, GFR, ANEU, ADIFF, PBNP, CMP #### [address] [address] Lymphocyte, Absolute 1.4 10 3/mcL Normal 0.9-4.3 [facility] ([place]) Comment on above: Performed By: #### C BC, GFR, ANEU, ADIFF, PBNP, CMP #### [address] [address] Lymphocytes/100 WBC (Bld) 13.1 % Low 20.0-40.0 [facility] ([place] Comment on above: Performed By: #### C BC, GFR, ANEU, ADIFF, PBNP, CMP #### [address] [address] Monocyte, Absolute 0.6 10 3/mcL Normal 0.1-1.4 Pending sale to [facility] ([place]) Comment on above: Performed By: #### C BC, GFR, ANEU, ADIFF, PBNP, CMP #### [address] [address] Monocytes/100 WBC (Bld) 5.4 % Normal 2.0-13.0 [facility] ([place] Comment on above: Performed By: #### C BC, GFR, ANEU, ADIFF, PBNP, CMP #### [address] [address] Neutrophils/100 WBC (Bld) 80.8 % High 50.0-75.0 [facility] ([place] Comment on above: Performed By: #### C BC, GFR, ANEU, ADIFF, PBNP, CMP #### [address] [address] .GFRon 04-22-2023 GFR Non- >60 Normal [facility] ([place] Comment on above: Result Comment: GFR Population [...] BC, GFR, ANEU, ADIFF, PBNP, CMP #### [address] [address] GFR >60 Normal Pending sale to [facility] ([place] Comment on above: Result Comment: GFR Population [...] BC, GFR, ANEU, ADIFF, PBNP, CMP #### [place] [address] .NEUABSon 04-22-2023 Neutrophil, Absolute 8.7 10 3/mcL High 2.3-8.1 [facility] ([place] Comment on above: Performed By: #### C BC, GFR, ANEU, ADIFF, PBNP, CMP #### [place] [address] APTTon 04-22-2023 aPTT Coag (Bld) [Time] 132.1 s Critically abnormal 25.0-35.0 [facility] ([place] Comment on above: Result Comment: For Heparin anticoagulation therapy, the recommended therapeutic range is: 54-77 seconds (APTT Correlation with Anti-Xa therapeutic range of 0.3-0.7 units/ml). PLEASE REFERENCE THE PHARMACY PROTOCOL FOR DOSING. Performed By: #### A PTT #### [place] [address] Heparin dose (APTT) Heparin IV Normal [facility] ([place]) Comment on above: Performed By: #### A PTT #### [place] [address] CBCon 04-22-2023 Erythrocyte distribution width (RBC) [Ratio] 14.0 % Normal 11.5-15.5 [facility] ([place] Comment on above: Performed By: #### C BC, GFR, ANEU, ADIFF, PBNP, CMP #### [place] [address] Hematocrit (Bld) [Volume fraction] 40.6 % Normal 34.0-46.0 [facility] ([place] Comment on above: Performed By: #### C BC, GFR, ANEU, ADIFF, PBNP, CMP #### [place] [address] Hgb 13.9 G/dL Normal 12.0-16.0 [facility] ([place] Comment on above: Performed By: #### C BC, GFR, ANEU, ADIFF, PBNP, CMP #### [facility] [address] [place], [place] [address] MCH (RBC) [Entitic mass] 29.4 pg Normal 27.0-33.0 [facility] ([place] Comment on above: Performed By: #### C BC, GFR, ANEU, ADIFF, PBNP, CMP #### [place] [address] MCHC 34.3 G/dL Normal 32.0-36.0 [facility] ([place] Comment on above: Performed By: #### C BC, GFR, ANEU, ADIFF, PBNP, CMP #### [place] [address] MCV (RBC) [Entitic vol] 85.9 fL Normal 80.0-99.0 [facility] ([place] Comment on above: Performed By: #### C BC, GFR, ANEU, ADIFF, PBNP, CMP #### [place] [address] Platelet 181 10 3/mcL Normal 150-450 [facility] ([place] Comment on above: Performed By: #### C BC, GFR, ANEU, ADIFF, PBNP, CMP #### [place] [address] Platelet mean volume (Bld) [Entitic vol] 7.8 fL Normal 6.6-10.5 [facility] ([place] Comment on above: Performed By: #### C BC, GFR, ANEU, ADIFF, PBNP, CMP #### [place] [address] RBC 4.73 10 6/mcL Normal 4.10-5.30 [facility] ([place] Comment on above: Performed By: #### C BC, GFR, ANEU, ADIFF, PBNP, CMP #### [place] [id number] WBC 10.8 10 3/mcL Normal 4.5-10.8 [facility] ([place] Comment on above: Performed By: #### C BC, GFR, ANEU, ADIFF, PBNP, CMP #### [place] [address] CMPon 04-22-2023 Albumin Level 3.7 G/dL Normal 3.2-4.8 [facility] ([place] Comment on above: Performed By: #### C BC, GFR, ANEU, ADIFF, PBNP, CMP #### [address] [address] Albumin/Globulin [Mass ratio] 1.3 {ratio} Normal 0.9-1.6 [facility] ([place] Comment on above: Performed By: #### C BC, GFR, ANEU, ADIFF, PBNP, CMP #### [address] [address] ALP [Catalytic activity/Vol] 112 U/L Normal 38-126 [facility] ([place] Comment on above: Performed By: #### C BC, GFR, ANEU, ADIFF, PBNP, CMP #### [address] [address] ALT [Catalytic activity/Vol] 23 U/L Normal 10-49 [facility] ([place] Comment on above: Performed By: #### C BC, GFR, ANEU, ADIFF, PBNP, CMP #### [address] [address] AST [Catalytic activity/Vol] 21 U/L Normal 8-34 [facility] ([place] Comment on above: Performed By: #### C BC, GFR, ANEU, ADIFF, PBNP, CMP #### [address] [address] Bili Total 0.70 mg/dL Normal 0.20-1.20 [facility] ([place] Comment on above: Result Comment: Use of this assay is not recommended for patients undergoing treatment with eltrombopag due to the potential for falsely elevated results. Performed By: #### C BC, GFR, ANEU, ADIFF, PBNP, CMP #### [address] [address] BUN/Creatinine Ratio 24.6 ratio High 10.0-22.0 Pending sale to [facility] ([place] Comment on above: Performed By: #### C BC, GFR, ANEU, ADIFF, PBNP, CMP #### [address] [address] Calcium [Mass/Vol] 9.0 mg/dL Normal 8.7-10.4 [facility] ([place]) Comment on above: Performed By: #### C BC, GFR, ANEU, ADIFF, PBNP, CMP #### [address] [address] Chloride [Moles/Vol] 104 mmol/L Normal 98-110 Pending sale to [facility] ([place] Comment on above: Performed By: #### C BC, GFR, ANEU, ADIFF, PBNP, CMP #### [address] [address] CO2 [Moles/Vol] 21 mmol/L Low 22-32 [facility] ([place] Comment on above: Performed By: #### C BC, GFR, ANEU, ADIFF, PBNP, CMP #### [place] [id number] Creatinine [Mass/Vol] 0.69 mg/dL Normal 0.50-1.20 [facility] ([place]) Comment on above: Performed By: #### C BC, GFR, ANEU, ADIFF, PBNP, CMP #### [place] [id number] Electrolyte Balance 17.0 mEq/L High 4.0-15.0 [facility] ([place]) Comment on above: Performed By: #### C BC, GFR, ANEU, ADIFF, PBNP, CMP #### [place] [id number] Globulin 2.8 G/dL Normal 1.5-3.8 [facility] ([place] Comment on above: Performed By: #### C BC, GFR, ANEU, ADIFF, PBNP, CMP #### [place] [id number] Glucose [Mass/Vol] 127 mg/dL High 82-115 [facility] ([place] Comment on above: Performed By: #### C BC, GFR, ANEU, ADIFF, PBNP, CMP #### [place] [id number] Potassium [Moles/Vol] 4.0 mmol/L Normal 3.5-5.0 [facility] ([place] Comment on above: Performed By: #### C BC, GFR, ANEU, ADIFF, PBNP, CMP #### [address] [address] Sodium [Moles/Vol] 142 mmol/L Normal 136-145 [facility] ([place] Comment on above: Performed By: #### C BC, GFR, ANEU, ADIFF, PBNP, CMP #### [place] [address] [place] [address] Total Protein 6.5 G/dL Normal 5.7-8.2 [facility] ([place] Comment on above: Result Comment: No te - New Reference Range in effect 20 Performed By: #### C BC, GFR, ANEU, ADIFF, PBNP, CMP #### [address] [address] Urea nitrogen [Mass/Vol] 17.0 mg/dL Normal 8.0-22.0 [facility] ([place] Comment on above: Performed By: #### C BC, GFR, ANEU, ADIFF, PBNP, CMP #### [address] [address] LABORATORYOrdered By: SYSTEM SYSTEM on 04-22-2023 Albumin [...] B (Bld) [Mass/Vol] 6059 pg/mL High 0-900 [facility] ([place] Comment on above: Result Comment: NT-p roBNP results of less than 300 pg/mL effectively rules out acute congestive heart failure with 99% negative predictive value. Performed By: #### A PTT, CBC, ANEU, ADIFF #### [address] [address] [facility] Troponin I High Sensitivity 333.21 ng/L High 0.00-34.00 [facility] ([place] Comment on above: Result Comment: If t he High Sensitive Troponin result is below the 99th percentile value (<45 ng/L) at the first blood draw, at least two additional blood samples should be drawn before results are interpreted as negative for AMI. Performed By: #### A PTT, CBC, ANEU, ADIFF #### [address] [address] HbA1c (Bld)on 01-20-2023 Average glucose Estimated from glycated hemoglobin (Bld) [Mass/Vol] 103 mg/dL Normal [facility] Comment on above: Order Comment: Speci men Type: BLOOD SPECIMEN Ordering Facility: [facility] Address: [address] [place] [address] Result Comment: eAG: (Estimated average glucose) is a calculated value from HgbA1c and is traffic workforce representative of the average blood glucose level in the last 2-3 month period. Performed By: #### 5 5454-3 #### [facility] CLIA [id number] [address] [place] [address] [place] HbA1c (Bld) [Mass fraction] 5.2 % Normal 4.3-5.6 [facility] Comment on above: Order Comment: Speci men Type: BLOOD SPECIMEN Ordering Facility: [facility] Address: [address] , [place] [address] Result Comment: Jcarlos ican Diabetes Association guidelines indicate that patients with HgbA1c in the range 5.7-6.4% are at increased risk for development of diabetes, and intervention by lifestyle modification may be beneficial. HgbA1c greater or equal to 6.5% is considered diagnostic of diabetes. Performed By: #### 5 5454-3 #### [facility] CLIA [id number] [address] [place], [place] [address] [place] [id number] [place] Colonoscopyon 12-15-2022 Colonoscopy [facility] Gastrointestinal Endoscopy Patient Name: Ashley Tuttle Procedure [...] previous diet. Procedure Code(s): --- Professional --- 31316, Colonoscopy, flexible; diagnostic, including collection of specimen(s) by brushing or washing, when performed (separate procedure) [address], 59, Moderate sedation services provided by the same physician or other qualified health managed care liaison performing the diagnostic or therapeutic service that the sedation supports, requiring the presence of an independent trained observer to assist in the monitoring of the patient's level of consciousness and physiological status; initial 15 minutes of intraservice time, patient age 5 years or older [address], Moderate sedation; each additional 15 minutes intraservice time Diagnosis Code(s): --- Professional --- K64.8, Other hemorrhoids Z86.010, Personal history of colonic polyps Z12.11, Encounter for screening for malignant neoplasm of colon CPT copyright 2020 [employer]. All rights r (more content not included)... Normal [facility] HISTORY PHYSICALon 3 HISTORY PHYSICAL HNO ID: [id number] Author: Thelma Fenton MD Service: General Surgery [...] entered by the nurse and reviewed by mn Nursing Notes: Gila Allen 11/17/2022 2:51 PM [...] denies arth (more content not included)... Normal [facility] NURSING PROGon 12-15-2022 NURSING PROG HNO ID: [id number] Author: Geetha Messina RN Service: ? Author Type: Registered Nurse Type: Nursing Progress Note Filed: 12/15/2022 12:21 PM Note Text: Arrived in phase II via cart left lateral position, eyes open to verbal stimuli, skin warm and dry, alert to self and event. Abdomen soft and non distended, denies pain or nausea. Resting comfortably on left side. Normal [facility] CNOVon 11-17-2022 CNOV Office Visit (GENSWS ) ASHLEY TUTTLE ([id number]) 1955 F Date Time Provider Department 11/17/22 [...] If you do not have a responsible emergency detail driver (family member or friend) with you [...] preparation solution at your local pharmacy [facility]. 10/2019 Bowel Preparation Instructions for: Golytely, Nulytely, Trilyte or Colyte (polyethylene glycol 3350 and electro (more content not included)... Normal [facility] Hemoglobin A1con 11-28-2021 Glucose [Mass/Vol] 105 mg/dL Normal [facility] Reference Lab Comment on above: Performed By: #### H BA1C #### [facility] Routine Lab [address] [place], [place] [address] HbA1c (Bld) [Mass fraction] 5.3 % Normal 4.3-5.6 [facility] Comment on above: Performed By: #### H BA1C #### [facility] Routine Lab [address] [place], [place] [address] Hemoglobin A1con 06-02-2021 Glucose [Mass/Vol] 105 mg/dL Normal [facility] Lab Comment on above: Performed By: #### H BA1C #### [facility] Routine Lab [address] [place], [place] [address] HbA1c (Bld) [Mass fraction] 5.3 % Normal 4.3-5.6 [facility] Comment on above: Performed By: #### H BA1C #### [facility] Routine Lab [address] [place], [place] [address] Vital Signs Date Time Vital Sign Value Performing Clinician Facility 04-25-2025 13:00-0400 Body height 162.[address] Ld Mon MD Work Phone: [facility] 04-25-2025 13:00-0400 Body mass index (BMI) [Ratio] 35.9 kg/m2 Dr. Ld Mon MD Work Phone: [facility] 04-25-2025 13:00-0400 Body temperature 97.5 [degF] Dr. Ld Mon MD Work Phone: [facility] 04-25-2025 13:00-0400 Body weight 95.[address] Ld Mon MD Work Phone: [facility] 04-25-2025 13:00-0400 Diastolic blood pressure 82 mm[Hg] Dr. Ld Mon MD Work Phone: [facility] 04-25-2025 13:00-0400 Heart rate 72 /min Dr. Ld Mon MD Work Phone: [facility] 04-25-2025 13:00-0400 Respiratory rate 18 /min Dr. Ld Mon MD Work Phone: [facility] 04-25-2025 13:00-0400 SaO2% (BldA) [Mass fraction] 98 % Dr. Ld Mon MD Work Phone: [facility] 04-25-2025 13:00-0400 Systolic blood pressure 168 mm[Hg] Dr. Ld Mon MD Work Phone: [facility] 04-27-2023 12:54-0400 Body temperature 98.06 [degF] DR ESTEBAN ENGLAND MD [facility] 04-27-2023 12:54-0400 Diastolic Blood Pressure Non-Invasive [address] ESTEBAN ENGLAND MD [facility] 04-27-2023 12:54-0400 Heart rate 90 /min DR ESTEBAN ENGLAND MD [facility] 04-27-2023 12:54-0400 Mean blood pressure 80 mm[Hg] DR ESTEBAN ENGLAND MD [facility] 04-27-2023 12:54-0400 Reason For Taking VItal Signs DR ESTEBAN ENGLAND MD [facility] 04-27-2023 12:54-0400 Respiratory rate 24 /min DR ESTEBAN ENGLAND MD [facility] 04-27-2023 12:54-0400 Systolic Blood Pressure Non-Invasive [address] ESTEBAN ENGLAND MD [address] [place] [address] 04-27-2023 08:16-0400 Heart rate 94 /min DR ESTEBAN ENGLAND MD [address] [place] [address] 04-27-2023 08:10-0400 Respiratory rate 23 /min DR ESTEBAN ENGLAND MD [address] [place] [address] 04-27-2023 08:02-0400 Body temperature 97.7 [degF] DR ESTEBAN ENGLAND MD [address] [place] [address] 04-27-2023 08:02-0400 Diastolic Blood Pressure Non-Invasive [address] ESTEBAN ENGLAND MD [address] [place] [address] 04-27-2023 08:02-0400 Heart rate 95 /min DR ESTEBAN ENGLAND MD [address] [place] [address] 04-27-2023 08:02-0400 Mean blood pressure 102 mm[Hg] DR ESTEBAN ENGLAND MD [address] [place] [address] 04-27-2023 08:02-0400 Reason For Taking VItal Signs DR ESTEBAN ENGLAND MD [address] [place] [address] 04-27-2023 08:02-0400 Respiratory rate 18 /min DR ESTEBAN ENGLAND MD [address] [place] [address] 04-27-2023 08:02-0400 Systolic Blood Pressure Non-Invasive [address] ESTEBAN ENGLAND MD [address] [place] [address] 04-27-2023 04:20-0400 Body temperature 97.7 [degF] DR ESTEBAN ENGLAND MD [address] [place] [address] 04-27-2023 04:20-0400 Diastolic Blood Pressure Non-Invasive [address] ESTEBAN ENGLAND MD [address] [place] [address] 04-27-2023 04:20-0400 Heart rate 92 /min DR ESTEBAN ENGLAND MD [address] [place] [address] 04-27-2023 04:20-0400 Mean blood pressure 78 mm[Hg] DR ESTEBAN ENGLAND MD [address] [place] [address] 04-27-2023 04:20-0400 Reason For Taking VItal Signs DR ESTEBAN ENGLAND MD [address] [place] [address] 04-27-2023 04:20-0400 Systolic Blood Pressure Non-Invasive [address] ESTEBAN ENGLAND MD [address] [place] [address] 04-27-2023 01:35-0400 Heart rate 93 /min DR ESTEBAN ENGLAND MD [address] [place] [address] 04-26-2023 15:50-0400 Heart rate 93 /min DR ESTEBAN ENGLAND MD [address] [place] [address] 04-24-2023 11:50-0400 Body height [address] ESTEBAN ENGLAND MD [address] [place] [address] 04-24-2023 11:50-0400 Body weight [address] ESTEBAN ENGLAND MD [address] [place] [address] 04-24-2023 11:50-0400 Body weight 37.11 kg/m2 DR ESTEBAN ENGLAND MD [address] [place] [address] 04-24-2023 03:33-0400 Blood Pressure Cuff Size DR ESTEBAN ENGLAND MD [address] [place] [address] 04-24-2023 03:33-[address] ESTEBAN ENGLAND MD [address] [place] [address] 04-24-2023 03:33-[address] ESTEBAN ENGLAND MD [address] [place] [address] 04-23-2023 18:28-0400 Blood Pressure Cuff Size DR ESTEBAN ENGLAND MD [address] [place] [address] 04-23-2023 18:28-[address] ESTEBAN ENGLAND MD [address] [place] [address] 04-23-2023 18:28-[address] ESTEBAN ENGLAND MD [address] [place] [address] 04-23-2023 15:48-0400 Heart rate 100 /min DR ESTEBAN ENGLAND MD [address] [place] [address] 04-23-2023 14:46-0400 Blood Pressure Cuff Size DR ESTEBAN ENGLAND MD [address] [place] [address] 04-23-2023 14:46-[address] ESTEBAN ENGLAND MD [address] [place] [address] 04-23-2023 14:46-[address] ESTEBNA ENGLAND MD [address] [place] [address] 04-23-2023 07:16-0400 Heart rate 105 /min DR ESTEBAN ENGLAND MD [address] [place] [address] 04-23-2023 03:06-0400 Heart rate 101 /min DR ESTEBAN ENGLAND MD [address] 04-22-2023 17:46-0400 Body height [address] ESTEBAN ENGLAND MD [address] [place] [address] 04-22-2023 17:46-0400 Body weight [address] ESTEBAN ENGLAND MD [address] [place] [address] 04-22-2023 17:46-0400 Body weight 37.11 kg/m2 DR ESTEBAN ENGLAND MD [address] [place] [address] 11-17-2022 14:42-0500 Body height 161.3 cm Thelma Fenton MD Work Phone: [facility] 11-17-2022 14:42-0500 Body temperature 98.8 [degF] Thelma Fenton MD Work Phone: [facility] 11-17-2022 14:42-0500 Body weight 95.25 kg Thelma Fenton MD Work Phone: [facility] 11-17-2022 14:42-0500 Diastolic blood pressure 94 mm[Hg] Thelma Fenton MD Work Phone: [facility] 11-17-2022 14:42-0500 Heart rate 74 /min Thelma Fenton MD Work Phone: [facility] 11-17-2022 14:42-0500 SaO2% (BldA) [Mass fraction] 99 % Thelma Fenton MD Work Phone: [facility] 11-17-2022 14:42-0500 Systolic blood pressure 152 mm[Hg] Thelma Fenton MD Work Phone: [facility] Encounters Encounter Date Encounter Type Care Provider Facility Start: 05-21-2025 ambulatory Bud Suazo Facility: [facility] Start: 04-25-2025 End: 04-25-[address] Bud Suazo MD -[facility] Work Phone: Start: 04-25-2025 End: 04-25-[address] Ld Mon MD Work Phone: [facility] Work Phone: Start: 04-22-2025 End: 04-22-2025 ambulatory LD DAWN KOKO [facility] [place] [facility] Start: 03-29-2025 End: 03-29-2025 ambulatory LD DAWN [facility] Start: 03-27-2025 End: 03-27-2025 ambulatory LD DAWN KOKO [facility] [place] [facility] Start: 02-20-2025 End: 02-20-2025 ambulatory LD DAWN KOKO [facility] Start: 02-07-2025 End: 02-07-2025 Emergency department patient visit ZEV HUGGINS [facility] Start: 10-08-2024 End: 10-08-2024 ambulatory LD DAWN [facility] Start: 06-22-2023 End: 06-22-2023 Patient encounter procedure NATHANIEL NOVAK MD [facility] Start: 05-20-2023 ambulatory NATHANIEL NOVAK MD Facili ty:A Start: 04-22-2023 End: 04-27-2023 Evaluation and management of inpatient CHELLE GAN MD Facility:A Start: 04-22-2023 End: 04-27-2023 Evaluation and management of inpatient DR ESTEBAN ENGLAND MD [facility] Start: 12-15-2022 End: 12-15-2022 ambulatory THELMA FENTON Facility:[facility] Start: 11-17-2022 End: 11-17-2022 ambulatory ROBERT FONG Facility:[facility] Start: 11-17-2022 End: 11-17-2022 Patient encounter procedure Thelma Fenton MD Work Phone: General Surgery Comment on above: History of colonic p olyps; Family history of colon cancer Procedures Date Procedure Procedure Detail Performing Clinician Start: 10-08-2024 Urinalysis YASSER OMR AN Comment on above: Result Comment: URIN ALYSIS Performed By: #### 2 [id number] #### [facility],[address] [place] [address] Start: 10-23-2019 Colonoscopy Thelma Fenton MD Work Phone: Plan of Treatment Date Care Activity Detail Author Start: 07-14-2025 DIABETES SCREEN DIABETES SCREEN [facility] Start: 11-07-2022 ADVANCE DIRECTIVE DISCUSSION ADVANCE DIRECTIVE DISCUSSION [facility] Start: 11-07-2022 DEPRESSION ASSESSMENT DEPRESSION ASS ESSMENT [facility] Start: 10-23-2022 Colonoscopy COLONOSCOPY [facility] Start: 10-23-2022 COLORECTAL CANCER SCREENING COLORECTAL CANCER SCREENING [facility] Start: 07-08-2022 Influenza vaccination INFLUENZA (#1) [facility] Start: 2019 BONE DENSITY BONE DENSITY [facility] Start: 2019 PNEUMOCOCCAL: 65+ (1 - PCV) PNEUMOCOCCAL: 65+ (1 - PCV) [facility] Start: 2004 SHINGRIX VACCINE (1 of 2) SHINGRIX VACCINE (1 of 2) [facility] Start: 1999 COLOGUARD (FIT-DNA) COLOGUARD (FIT-D NA) [facility] Start: [address] [facility] Start: 1999 FECAL OCCULT BLOOD FECAL OCCULT BLOO D [facility] Start: 1999 LIPID SCREEN LIPID SCREEN [facility] Start: [address] [facility] Start: 1994 Mammography MAMMOGRAM [facility] Start: 1973 Urine microalbumin profile DTAP,TDAP,TD (1 - Tdap) [facility] Start: 1972 HEPATITIS C SCREENING HEPATITIS C SC REENING [facility] Start: 03-28-1955 COVID-19 VACCINE (#1) COVID-19 VACCI NE (#1) [facility] End: 11-17-2023 Screening colonoscopy COLONOSCOPY SCREENING Endoscopy Routine History of colonic polyps 1 Occurrences starting 11/17/2022 until 11/17/2023 [facility] Work Phone: Comment on above: 1 Occur[facility] starti ng [facility]17[facility]20[facility] P[facility] Date Payer Category Payer Self-pay 2021 Unknown MMO MMO MEDICARE SUPPLEMENT [id number] 2021-Present [phone] [address] [place] [address] Indemnity [id number] 2021 Unknown [id number] 2019 Medicare MEDICARE MEDICAR E A AND B [id number] 2019-Present [phone] [address] [address] [place] [address] Medicare [id number] 2019 Medicare [id number] 1955 Unknown [id number] 1955 Unknown [id number] 1954 Unknown [id number] 1954 Unknown [id number] 1954 Unknown [id number] [id number] 1954 Unknown [id number] [id number] 1954 Unknown [id number] [id number] 1954 Unknown [id number] [id number] Unknown TESHA [id number] Unknown [id number] Unknown [id number] Social History Date Type Detail Facility Start: 02-02-2013 End: 04-25-2025 Tobacco smoking status [facility] Never smoked tobacco [facility] Start: 02-02-2013 Tobacco use and exposure Smokeless tobacco non-user [facility] Start: 11-17-2022 Alcohol intake Current non-dr luna of alcohol (finding) [facility] Start: 1955 Sex Assigned At Not on file C [facility] Start: 1955 Sex Assigned At Female W [facility] Functional Status Date Assessment Result Facility 04-27-2023 Functional Status Room check performed [facility] 04-27-2023 Functional Status 1 [facility] 04-27-2023 Functional Status Done [facility] 04-27-2023 Functional Status [facility] 04-26-2023 Functional Status [facility] 04-26-2023 Functional Status [facility] 04-25-2023 Functional Status Single level home [facility] 04-25-2023 Functional Status Spouse is semi-retired. [facility] 04-25-2023 Functional Status Morning Snack Percent 7 5 [facility] 04-24-2023 Functional Status Maintained [facility] 04-24-2023 Functional Status [facility] 04-24-2023 Functional Status [facility] 04-23-2023 Functional Status [facility] 04-22-2023 Functional Status [facility] Mental Status Date Assessment Result Facility 04-27-2023 Mental Status Oriented x 4 [facility] 04-27-2023 Mental Status [facility] 04-27-2023 Mental Status [facility] Clinical Notes 11-17-2022 to 02-07-2025 Note Date & Type Note Facility 02-07-2025 Note Discharge Instructio ns Discharge Summary [place] [address] [facility] [place] [phone] 02/07/2025 Patient: ASHLEY TUTTLE Sex: Female : 1955 Age: 69y Thank you for visiting [facility]. You have been evaluated today by Zev [...] days, dispense 5 tablet. Refills 0. Pharmacy: [facility]/pharmacy #[id number] - [address], [place] [phone]. albuterol sulfate HFA 90 mcg/actuation aerosol inhaler: Inhale 2 puff using inhaler every six to eight hours as needed for 10 days, dispense 18 gram. Refills 0. Pharmacy: [facility]/pharmacy #[id number] - [address], [place] [phone]. 1 of 15 Discharge Instructions Zithromax Z-Codey tablet (azithromycin) 250: Take 2 tablet by mouth once a day for 5 days, dispense 6 tablet. Refills 0. Pharmacy: [facility]/pharmacy #[id number] - [address], [place] [phone]. Follow-up with: Ld Mon MD, [facility], Internal Medicine, Phone: [phone], [address] [facility], [place] [address]. Follow up in four. (return if problems or concerns any shortness of breath.). You have been given the following additional information: Pneumonia (Adult) PREDNISONE - ORAL ALBUTEROL (SALBUTAMOL) HFA INHALER - ORAL INHALATION Patient Signature Facility Hand Mixer Date/Time General Instructions with Exit[employer] [address] [place] [phone] 02/07/2025 Patient: ASHLEY TUTTLE Sex: Female : 1955 Age: 69y Thank you for visiting [facility]. You have been evaluated today by Zev [...] days, dispense 5 tablet. Refills 0. Pharmacy: [facility]/pharmacy #[id number] - [address], [place] [phone]. albuterol sulfate HFA 90 mcg/actuation aerosol inhaler: Inhale 2 puff using inhaler every six to eight hours as needed for 10 days, dispense 18 gram. Refills 0. Pharmacy: [facility]/pharmacy #[id number] - [address], [place] [phone]. Zithromax Z-Codey tablet (azithromycin) 250: Take 2 tablet by mouth once a day for 5 days, dispense 6 tablet. Refills 0. Pharmacy: [facility]/pharmacy #[id number] - [address], [place] [phone]. Follow-up with: Ld Mon MD, [facility], Internal Medicine, Phone: [phone], [address] [place], [place] [phone]. Follow up in four. (return if problems [...] provider about t (more content not included)... [facility] 06-22-2023 Note Exam Date Time Procedure Performing Provider Status 06/22/23 2:52 PM Echocardiogram, Adult - CV Auth (Verified) [facility] 06-21-2023 Discharge summary Date of Service 04/27/23 [...] of breath. The patient was recently in [facility] and traveled by car for too [...] day. TNF-Med Follow Up Follow Up with DL MON MD, Infectious Disease, Infectious Disease Group When Within 5 to 7 days Where: [address] [place] [address] [address] [facility] [phone] Follow Up Appointments No qualifying data available. [...] DAISHA WOODWARD MD on 04/27/2023 07:22 PM [id number] Discharge instructions Patient Education 04/27/2023 14:55:58 [...] Follow these instructions at home: Medicines Take kbso-sxi-vqovorz and prescription medicines only as told by [...] right away. Call your local emergency services (921 in the [place] Do not drive yourself [...] or DVT, call your local emergency services (640 in the [place] This information is not intended to replace advice given to you by your health care provider. Make sure you discuss any questions you have with your health care provider. Document Released: 10/21/2001 Document Revised: 08/01/2019 Document Reviewed: 08/01/2019 [employer] Patient Education 2020 [employer] Follow Up Care 04/22/2023 17:37:00 With:LD MON MD, Infectious Disease, Infectious Disease Group Address: [address] [place] [address] [address] [facility] [phone] When:5 to 7 days [facility] 06-21-2023 Note Discharge Instructions Thank you for allowing [facility] to assist you with your healthcare needs. The following is importantdischarge information regarding your hospital visit. Your Care Team LD MON MD What to do next Follow Up Appointments Follow Up with LD MON MD, Infectious Disease, Infectious Disease Group When Within 5 to 7 days Where: [address] [facility] [address] [facility] [phone] The Following Activity and Diet Have Been [...] medicines at the same time (including some juxt-ynh-obftfvy medicines). Tell your doctor about all medicines [...] may report side effects to FDA at 6-627-EJY-0745. What other drugs will affect apixaban? Sometimes it is not safe to use certain medications at the same time. Some drugs can affect your blood levels of other drugs you take, which may increase side effects or make the medications less effective. Many other drugs (including some vxnq-yos-xtfwsvh medicines) can increase your risk of bleeding or blood clots. Tell your doctor about all medicines you have recently used, especially: any other medicines to treat or prevent blood clots; a blood thinner such as heparin or warfarin (Coumadin, Jantoven); an antidepressant; or aspirin or other NSAID (nonsteroidal anti-inflammatory drug) used terminal gauger. This list is not complete and many other drugs may affect apixaban. This includes prescription and ycjv-ffd-vpvadgu medicines, vitamins, and herbal products. Not all [...] to ensure that the information provided by [employer]. ('[employer]') is accurate, up-to-date, and complete, but no guarantee is made to that effect. Drug information contained herein may be time sensitive. [employer] information has been compiled for use by healthcare practitioners and consumers in the [place] and therefore [employer] does not warrant that uses outside of the [place] are appropriate, unless specifically indicated otherwise. [employer] drug information does not endorse drugs, diagnose patients or recommend therapy. [employer] drug information isan informational resource designed to [...] effective or appropriate for any given patient. [employer] does not assume any responsibility for any aspect of healthcare administered with the aid of information [employer] provides. The information contained herein is not intended to cover all possible uses, directions, precautions, warnings, drug interactions, allergic reactions, or adverse effects. If you have questions about the drugs you are taking, check with your doctor, nurse or pharmacist. Copyright 4058-4266 [employer] Version: 6.01. Revision Date: 06/30/2021. Education Materials [...] Follow these instructions at home: Medicines Take ywjw-enz-ebztgqj and prescription medicines only as told by [...] 10/21/2001 Document Revised: 08/01/2019 Document Reviewed: 08/01/2019 [employer] Patient Education 2020 [employer]. Additional Information VACCINATE! IT SAVES LIVES! Members of the community who have not yet received the COVID-19 vaccine and would like to receive it can visit one of [facility] vaccine clinics. There are many vaccine clinic locations within the [facility]. For locations and available times, please visit https://gettheshot.coronavirus.[place].gov/. It is important to note that some COVID mobile vaccine clinics are held outdoors and may be canceled in rainy or stormy conditions. To learn more about pediatric vaccinations (ages 5-11), we invite you to visit the [facility] webpage. https://www.[facility].org/pages/4842-Ouhds-Ebhyjbgnqtl-Frfimtsaco-Uhfja-Ibd stions.htmlTo learn more about the COVID-19 vaccine, we invite you to visit the CDC website for a list of frequently asked questions.https://www.cdc.gov/coronavirus/2019-ncov/vaccines/faq.html [facility] Patient Portal Access Instructions: Stay connected with your healthcare team and access your personal medical information anytime with the [email or web address] Patient Portal. Please follow the directions below to create your [email or web address] account: 1.Access the email account you provided upon registration to the hospital/physician office.2.Look for an invitation email from [facility].3.Open the email and access the invitation link: AcceptInvitation to [email or web address].4.Fill in the required antonio to create your account. To access your account, visit [email or web address] Service Networkshart. Click the blue button labeled Access Patient [...] who you will allowto register on the [email or web address] Patient Portal for access to your information. You can also access the [email or web address] Patient Portal on the [facility] [employer] karime. Simply click on Patient Portal and then log into your account. If you would like to receive a full copy of your medical records, please contact the [facility] Medical Records Department by calling [phone], Tuesday through Tuesday between 8 a.m. and [...] Call your local pharmacy or go to http://bit.ly/0W0Tm2p to find one close to you.3.Make use of household items: Use cat litter or old coffee grounds to dispose medications if other options arenot available. Mix your drugs with these household products, seal them in an airtight container andthrow it into the garbage. Call [facility]: [phone] to be sure your drugs can be [...] aware that I should contact my doctor. Patient/Hand Mixer Signature: Date/Time: Relationship to Patient: Witness Name/Signature: Date/Time: [id number] Note Date of Service 04/26/23 Chief Complaint [...] karime, Topical, qDay fluticasone nasal 0.05 mg/inh [place] 50 mcg 1 spray(s), Nostril, each, qDay fluticasone nasal 0.05 mg/inh [place] 50 mcg 1 spray(s), Nostril, each, BID [...] DAISHA WOODWARD MD on 04/27/2023 01:34 AM [id number] Pulmonary Progress note Date of Service 04/26/2023 Chief Complaint Nasal congestion Subjective Ms. Tuttle is a 67-year-old female past medical history hypertension who recently traveled by car to [place] and returned last Tuesday then developed lower extremity edema followed by shortness of breath with chest discomfort, which she describes as heaviness. Symptoms got progressively worse with worsening edema. There is a family history of DVT in her sister. [facility] , was found to be [...] karime, Topical, qDay fluticasone nasal 0.05 mg/inh [place] 50 mcg 1 spray(s), Nostril, each, qDay [...] directed thrombolysis. This is provoked, by prolonged emergency detail driver. 2. Sister history of DVT. Plan: 1. Patient has improved significantly, will be able this morning to wean her oxygen to room air, [id number] 92-94%, suspect she might need oxygen at [...] NATHANIEL NOVAK MD on 04/26/2023 09:07 AM [facility] [id number] Note Date of Service 04/25/2023 Subjective Ms. Tuttle is a 67-year-old female past medical history hypertension who recently traveled by car to [place] and returned last Tuesday then developed lower [...] karime, Topical, qDay fluticasone nasal 0.05 mg/inh [place] 50 mcg 1 spray(s), Nostril, each, qDay [...] April 24 2. Recent car travel from [place] back to [place] 3. History of DVT in sister, likely [...] HENRY ONEAL MD on 04/25/2023 11:09 AM [facility] [id number] Note ORIGINAL EXAMINATION: ONE XRAY VIEW OF [...] 04/25/2023 7:41:49 AM Ordering Provider: BUD PHAM [facility] [id number] Vascular surgery Progress note Date of Service [...] karime, Topical, qDay fluticasone nasal 0.05 mg/inh [place] 50 mcg 1 spray(s), Nostril, each, qDay [...] PRO ALDANA MD on 04/25/2023 07:02 AM [facility] [id number] Note ORIGINAL EXAMINATION: ONE XRAY VIEW OF [...] Sign Date: 04/25/2023 7:41:49 AM Ordering Provider: [facility]06-18-2023 Note Date of Service 04/24/23 Chief Complaint [...] karime, Topical, qDay fluticasone nasal 0.05 mg/inh [place] 50 mcg 1 spray(s), Nostril, each, qDay [...] DAISHA WOODWARD MD on 04/24/2023 11:36 PM [facility] [id number] Note ORIGINAL EXAMINATION: ONE XRAY VIEW OF THE CHEST04/24/2023 6:20 pm CHEST ONE VIEW AP/PA COMPARISON: 04/24/2023 HISTORY: ORDERING SYSTEM PROVIDED HISTORY: Reason for Exam: pain/[id number]^ FINDINGS: Lines/Tubes: None. Interval removal of a [...] 04/24/2023 7:18:41 PM Ordering Provider: LEONA MCNAIR [facility] [id number] Note ORIGINAL EXAMINATION: ONE XRAY VIEW OF THE CHEST04/24/2023 6:20 pm CHEST ONE VIEW AP/PA COMPARISON: 04/24/2023 HISTORY: ORDERING SYSTEM PROVIDED HISTORY: Reason for Exam: pain/[id number]^ FINDINGS: Lines/Tubes: None. Interval removal of a [...] Date: 04/24/2023 7:18:41 PM Ordering Provider: LEONA MCNAIRSum[facility] [id number] Note ORIGINAL EXAMINATION: ONE XRAY VIEW OF [...] Date: 04/24/2023 1:23:03 PM Ordering Provider: FELIPE [facility]ñizWestern [facility] [id number] Note ORIGINAL EXAMINATION: ONE XRAY VIEW OF [...] Date: 04/24/2023 1:23:03 PM Ordering Provider: FELIPE HAWTHORNESum[facility] [id number] Note ORIGINAL Images acquired, not reported on this accession number. 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 Patient recently went under long car trip from [place] and had sudden onset of chest pain [...] PRO ALDANA MD on 04/24/2023 10:32 AM [facility] [id number] Anesthesiology Consult note Patient: ASHLEY TUTTLE Age: [...] karime, Topical, qDay fluticasone nasal 0.05 mg/inh [place] 50 mcg 1 spray(s), Nostril, each, qDay [...] 17:33 EDT Apical Heart Rate 103 bpm [place] 04/23/2023 15:48 EDT Peripheral Pulse Rate 100 bpm Respiratory Rate 22 br/min [place] 04/23/2023 14:46 EDT Temperature Oral 36.7 DegC [...] 9:43 EDT Apical Heart Rate 102 bpm [place] 04/23/2023 9:42 EDT Apical Heart Rate 102 bpm [place] 04/23/2023 7:16 EDT Temperature Oral 36.4 DegC [...] Resp Rate H 23br/min (APR 24 07:09) EZU525 mmHg (APR 24 07:09) DBP88 mmHg (APR [...] Type 0-10 Pain scale Nail Bed Color Braden Capillary Refill < 2 seconds Heart Rhythm [...] Facial Movement Symmetric resting/crying All Extremity Description Braden, Normal for ethnicity Skin Temperature Warm Temperature All Extremities Warm Skin Description Braden, Normal for ethnicity Skin Integrity Intact Skin Turgor Elastic Mucous Membrane Color Braden Mucous Membrane Description Moist Neurological Language Able to speak clearly Neurological Symptoms Fatigue Gait Steady Extremity Movement Equal Swallowing Difficulty None Characteristics of Communication Appropriate Characteristics of Speech Clear Facial Symmetry Symmetric Level of Consciousness Alert Aspiration Risk None Eye Opening Response Sugar Spontaneously Best Motor Response Sugar Obeys simple commands Best Verbal Response [place] Oriented [place] Coma Score 15 SALLY Yes Left Pupil [...] Transport Mode Order Detail MTT with Monitor Lab Animal Technician Details Form Lab Animal Technician Details Form 04/24/2023 9:25 EDT Antecubital Left [...] Transport Mode Order Detail MTT with Monitor Lab Animal Technician Details Form Lab Animal Technician Details Form 04/23/2023 23:55 EDT Primary Pain [...] Not Appropriate at this Time (Not Done) Lab Animal Technician Details Form Not Done (Not Done) 04/23/2023 23:00 EDT Urine Count 2 EA 04/23/2023 22:26 EDT Oxygen Therapy Nasal cannula 0L-6L Oxygen Flow Rate 2 Activity Status ADL Resting Standard Safety ID band on, Call device within [facility] High Risk Safety Room check performed [...] Safety ID band on, Call device within [facility] High Risk Safety Room check performed [...] Type 0-10 Pain scale Nail Bed Color Braden Capillary Refill < 2 seconds Dorsalis Pedis Pulse, Left 2+ Normal Dorsalis Pedis Pulse, Right 2+ Normal Radial Pulse, Left 2+ Normal Radial Pulse, Right 2+ Normal Leg edema Right Edema Ratin+ trace/2mm Leg edema Left Edema Ratin+ mild/4mm Cardiac Rhythm Sinus rhythm Monitoring Lead II, V1/MCL1 HI Interval 0.18 second(s) QRS Duration 0.06 second(s) [...] Facial Movement Symmetric resting/crying All Extremity Description Braden Skin Temperature Warm Temperature All Extremities Warm Skin Description Normal for ethnicity Skin Integrity Intact Skin Turgor Elastic Mucous Membrane Color Braden Mucous Membrane Description Moist Neurological Language Able to speak clearly Neurological Symptoms Fatigue Gait Steady Extremity Movement Equal Swallowing Difficulty None Characteristics of Communication Appropriate Characteristics of Speech Clear Facial Symmetry Symmetric Level of Consciousness Alert Aspiration Risk None Eye Opening Response [place] Spontaneously Best Motor Response Sugar Obeys simple commands Best Verbal Response [place] Oriented Sugar Coma Score 15 SALLY Yes [...] Intact Skin Turgor Elastic Mucous Membrane Color Braden Mucous Membrane Description Moist 04/23/2023 13:19 EDT [...] Transport Mode Order Detail MTT with Monitor Lab Animal Technician Details Form Lab Animal Technician Details Form 04/23/2023 13:18 EDT CAM Mental [...] Sugar Obeys simple commands Best Verbal Response [place] Oriented Sugar Coma Score 15 SALLY Yes [...] Type 0-10 Pain scale Nail Bed Color Braden Capillary Refill < 2 seconds Heart Sounds [...] Facial Movement Symmetric resting/crying All Extremity Description Braden Skin Temperature Warm Temperature All Extremities Warm Skin Description Normal for ethnicity Skin Integrity Intact Skin Turgor Elastic Mucous Membrane Color Braden Mucous Membrane Description Moist Sensory Perception Daniel [...] Opening Response Sugar Spontaneously Best Motor Response [place] Obeys simple commands Best Verbal Response [place] Oriented [place] Coma Score 15 SALLY Yes Strength All [...] Transport Mode Order Detail MTT with Monitor Lab Animal Technician Details Form Lab Animal Technician Details Form . Assessment and Plan [place] [employer] Anesthesiologists (ASA) physical status classification: [...] MANUEL DYER MD on 04/24/2023 10:17 AM [facility] CampusOswivrry91-41-2017 Pulmonary Progress note Date of Service 04/24/23 [...] karime, Topical, qDay fluticasone nasal 0.05 mg/inh [place] 50 mcg 1 spray(s), Nostril, each, qDay [...] lobe emboli 2. Recent car travel from [place] back to [place] 3. History of DVT in sister, likely [...] PRO PETERS MD on 04/24/2023 01:41 PM [facility] [id number] Note Date of Service 04/23/23 Chief Complaint [...] karime, Topical, qDay fluticasone nasal 0.05 mg/inh [place] 50 mcg 1 spray(s), Nostril, each, qDay [...] DAISHA WOODWARD MD on 04/24/2023 12:02 AM [facility] [id number] Pulmonary Consult note Date of Service 04/23/2023 Reason for Consultation pulmonary embolism, hypoxemia Referring Physician Hospitalist History of Present Illness Ms. Tuttle is a 67-year-old female past medical history hypertension who recently traveled by car to [place] and returned last Tuesday then developed lower [...] lobe emboli 2. Recent car travel from [place] back to [place] 3. History of DVT in sister, likely [...] have asked for her disc from [facility] to be uploaded to our system [...] PRO PETERS MD on 04/23/2023 12:20 PM [facility] [id number] History and physical note Date of Service 04/22/2023 Chief Complaint Shortness of breath, lower extremities pain History of Present Illness This is a 67-year-old female who had a past medical history of hypertension who came to the ER complaining of worsening shortness of breath. The patient was recently in [facility] and traveled by car for too [...] ESTEBAN ENGLAND MD on 04/22/2023 06:37 PM [facility] [id number] History and physical note Date of Service 04/22/2023 Chief Complaint Shortness of breath, lower extremities pain History of Present Illness This is a 67-year-old female who had a past medical history of hypertension who came to the ER complaining of worsening shortness of breath. The patient was recently in [facility] and traveled by car for too [...] ESTEBAN ENGLAND MD on 04/22/2023 06:37 PM [facility] [id number] History and physical note Date of Service 04/22/2023 Chief Complaint Shortness of breath, lower extremities pain History of Present Illness This is a 67-year-old female who had a past medical history of hypertension who came to the ER complaining of worsening shortness of breath. The patient was recently in [facility] and traveled by car for too [...] ESTEBAN ENGLAND MD on 04/22/2023 06:37 PM [facility] [id number] Evaluation + Plan noteExtracted from: Title:History and [...] above 90%, ok to move prn with nurseryman assistant if needed Addendum by ESTEBAN ENGLAND MD on April 22, 2023 19:00:52 EDT patient is short of breath will keep her bed rest and reevaluate in [facility] 02-08-2023 NoteHNO ID: [id number] Author: Maria Elena Leal RN Service: ? Author Type: Registered Nurse Type: Nursing Progress Note Filed: 12/15/2022 11:35 AM Note Text: Dr. Fenton notified of BP of 205/89. Maria Elena Leal [facility]-2023 NoteHNO ID: [id number] Author: Maria Elena Leal RN Service: ? Author Type: Registered Nurse Type: Nursing Progress Note Filed: 12/15/2022 10:53 AM Note Text: Dr. Fenton notified of elevated BP of 200/84. Maria Elena Leal RNTr[facility]ull [facility]01-11-2023 NoteHNO ID: [id number] Author: Thelma Fenton MD Service: ? Author Type: Physician Type: Progress Notes Filed: 11/20/2022 2:21 PM Note Text: HISTORY AND PHYSICAL Ashley Tuttle [...] Use in the nose once daily. ivermectin/metronidazole/niaci (KIPYRXEMXY-HAIUJYRJIMJW-ERGCMA TOPICAL) Apply to affected area as needed. [...] entered by the nurse and reviewed by mn Nursing Notes: Gila Allen 11/17/2022 2:51 PM [...] knee/foot trouble, denies arthritis (more content not included)...[facility]01-[facility] History of Present illness Narrative* [...] Use in the nose once daily. ivermectin/metronidazole/niaci (EGTRXJOKPX-SFLOJFKXWLOT-USQPBB TOPICAL) Apply to affected area as needed. [...] entered by the nurse and reviewed by mn Nursing Notes: Gila Allen 11/17/2022 2:51 PM [...] patient was offered a surgery/procedure at a [facility]. The provider and patient have discussed in [...] be scheduled on 12/15/2022 for colonoscopy at [facility]. Medical Decision Making: Problems: Low: Stable chronic illness Risk: Low: Low risk from testing/treatment Medical Decision Making Level: 3 - Low Thelma Fenton MD [facility] Instructions* Patient Instructions* Thelma Fenton MD - [...] If you do not have a responsible emergency detail driver (family member or friend) with you [...] your exam. 2 10/2019 [facility] in [facility] encounterPark[facility]01-11-2023 Nurse Note* Gila Allen - 11/17/2022 2:50 [...] Colonoscopy: 10/2019 Gila Allen [facility]* Diagnosis History of colonic polyps Personal history of colonic polyps Family history of colon cancer Family history of malignant neoplasm of gastrointestinal tract documented in this encounter [facility] noteNo assessment information availableFremont Hospital Work Phone: Hospital course Narrative No data available for this section [facility] Discharge instructions No data available for this section [facility] Progress note No data available for this section [facility] Reason for referral (narrative)* Outpatient Procedure (Routine) - Authorized Specialty Diagnoses / Procedures Referred By Contkarissa t Referred To Contact [facility] Diagnoses History of colonic polyps Procedures COLONOSCOPY SCREENING COLONOSCOPY FLX DX W/COLLJ SPEC WHEN Thelma Malave MD [address] [place] [address] [facility] [place] [address] Referral ID Status Reason Start Date Expiration Date Visits Requested Visits Authorized [id number] Authorized Auto-Generat ed Referral 11/17/2022 11/17/2023 [facility] (narrative)No reason for referral information availableSouth Easton [facility] LLC Services Work Phone: Summary Purpose Family History [...] section and content) DATE CREATED AUTHOR 11/29/2021 [facility] DATE CREATED AUTHOR AUTHOR'S ORGANIZ ATION 05/21/2023 [facility] ([place]) DATE CREATED AUTHOR AUTHOR'S ORGANIZ ATION 07/14/2023 [facility] DATE CREATED AUTHOR AUTHOR'S ORGANIZ ATION 04/24/2025 [facility] DATE CREATED AUTHOR AUTHOR'S ORGANIZ ATION 04/28/2025 [facility] DATE CREATED AUTHOR AUTHOR'S ORGANIZ ATION 05/18/2025 [facility] Source Comments (unrecognize d section and content) In the event this informatio n is protected by the Federal Confidentiality of Alcohol and Drug Abuse Patient Records regulations: The Federal rules restrict any use of the information to criminally investigate or prosecute any alcohol or drug abuse patient.[facility] Reason for Visit (unrecogniz ed section and content) Reason Comments Colon Consult Care Teams (unrecognized sec tion and content) Odd Shoe Examiner Relationship Specialty Start Date End Date Ld Mon MD [address] [place] [address] PCP - General 04/21/04 Team Status: Active [...] BE BASED ON THE PRIMARY CLINICAL RECORDS. [facility] [employer] [facility]. provides no warranty or guarantee of the accuracy or completeness of information in this document.
[2025-05-21] MEDS: Lactated Ringers 1,000 ML 15 ML IV (06:36)
--- NOTE | 2025-05-21 06:53 | PCM.HP.BLA ---
History and Physical Date of Admission: 05/21/25 Date of Service: 04/25/25 MR#: [id number] Acct: [id number] Name: AIRAM REEVES Rep #: [id number] : 1955 Provider: Dr. Elijah Suazo MD Age/Sex: 69/F Location: [facility] Status: Signed Intake Vital Signs 04/25/2513:00 Height 5 ft 4 in Weight: 209 lb 8 oz BMI 35.9 BP 168/82 H Blood Pressure Location Rt brachial Position Sitting Respiration 18 Pulse 72 Pulse Source Monitor Temp 97.5 F L Temp Source Temporal Pulse Oximetry (%) 98 Oxygen Delivery Method room air Intake Visit Reasons: SUSPICIOUS THYROID BIOPSY Chief Complaint: discuss thyroid surgery Is patient in pain?: No Allergies No Known Allergies Allergy (Unverified 04/25/25 12:37) Medications ?Medication ?Instructions ?Recorded ?Confirmed ?Type clobetasol 0.05 % eye 1 drp ophthalmic (eye) BID 04/25/25 04/25/25 History drops,suspension fluticasone propionate 50 1 spray intranasal QDAY 04/25/25 04/25/25 History mcg/actuation nasal spray,suspension (Flonase Allergy Relief) ivermectin 1 %-metronidazole 1 ea topical 04/25/25 04/25/25 History %-niacinamide 4 % topical gel lisinopril 10 1 tab PO QDAY 04/25/25 04/25/25 History mg-hydrochlorothiazide 12.5 mg tablet meclizine 25 mg tablet 25 mg PO 4X/DAY PRN 04/25/25 04/25/25 History metoprolol tartrate 50 mg tablet 50 mg PO BID 04/25/25 04/25/25 History phytosterol 300 mg-pantethine 100 cap PO 04/25/25 04/25/25 History mg capsule (CholestOff Complete) Have you fallen in the past year?: No PFSH Medical History (Updated 04/25/25 @ 22:[address] Elijah Suazo MD) Cataract Thyroid nodule Surgical History (Updated 04/25/25 @ 12:36 by Ghada Burnette LPN) Status post Mohs micrographic surgery for basal cell carcinoma (BCC) Hx laparoscopic cholecystectomy Family History (Updated 04/25/25 @ 13:00 by Ghada Burnette LPN) Mother Thyroid disorder Thyroid cancerSister Thyroid disorderBrother Thyroid disorderSister Thyroid disorder Social History (Updated 04/25/25 @ 12:37 by Ghada Burnette LPN) Smoking Status: Never smoker alcohol intake: never substance use type: does not use HPI HPI HPI: Patient is a 69-year-old female who presents for evaluation of a newly diagnosed right thyroid nodule. They are referred for surgical consultation from Dr. Pittman. This was discovered incidentally during a workup on 02/08/2025 for patient diagnosis of bronchopneumonia. They do not experience difficulty with swallowing. They do not complain of a new cough. They do not appreciate new voice changes. They did have a history of snoring/sleep apnea. Additionally, their weight has been stable and they do not have a history of weight gain/loss or an inability to lose despite intentional effort. There is no history of recent fatigue. They do not have a history of heat or cold intolerance. Other symptoms include: Pertinent positives: No lower extremity swelling, pertinent negatives: No palpitations or irregular bowel habits. They do have a family history of thyroid disorders and shared that her mother was diagnosed with thyroid cancer and under thyroid hormone supplementation. There is no history of prior radiation exposure. Previous work-up has included thyroid ultrasound. This study was performed on 02/20/2025 and showed a right thyroid lobe measuring 4.9 x 2.1 x 2.6 cm. Within this lobe radiology identified a nodule measuring 3.4 x 1.9 x 2.2 cm and described as a TI-RADS 4 lesion being both solid and hypoechoic. The left thyroid lobe measured 4.9 x 1.4 x 1.6 cm. Within this lobe radiology identified a nodule measuring 2 subcentimeter lesions that were rated TI-RADS 2 and TI-RADS 4 by their sonographic appearance. An FNA has been performed of the dominant right thyroid nodule and final Afirma testing returned suspicious. Other tests include: TSH: 2.41 (10/08/2024) ROS General General: No weight change, appetite, fatigue, colon cancer, breast cancer or weakness HEENT HEENT: Yes eye surgery; No difficulty swallowing, eye injury, swollen glands or hoarseness Endo Endocrine: No thyroid disease, diabetes mellitus, thyroid cancer, Hair loss, heat intolerance or cold intolerance Skin Skin: No rash or changing moles Musc Musculoskeletal: No back problems, arthritis, rheumatoid arthritis, gout or joint pain Cardio Cardiovascular: Yes high blood pressure; No murmur, pacemaker, heart disease, atrial fibrillation, heart attack, heart stent, palpitations, shortness of breath with exertion or chest pain Psych Psychiatric: No depression, anxiety or hearing voices Resp Respiratory: No shortness of breath, No sleep apnea, No cough, No COPD, No asthma, No emphysema and No wheezing Gastro Gastrointestinal: No abdominal pain, No nausea or vomiting, No diarrhea, No constipation, No blood in stool, No acid reflux, No hemorrhoids, No ulcers, No gallbladder problem and No black,tarry stools Jf Hematologic: No blood thinners, No blood disorders, No bleeding, No anemia and Yes blood clots Neuro Neurologic: No numbness, No tingling and No weakness Exam Const General: cooperative, comfortable and anxious Nutritional Appearance: well nourished Orientation: alert, awake and oriented x3 Neck Other: Supple neck with palpable right thyroid nodule. Nodule is nontender on exam. Do not palpate any cervical lymphadenopathy. Ultrasound exam was performed the patient's right neck and thyroid is readily visualized with nodule as described. I confirmed the dimensions from the index imaging. I can also confirm that I definitively see the inferior pole of the right thyroid lobe. Assessment and Plan Assessment and Plan (1) Thyroid nodule: Status: Acute Comment: Patient is 69-year-old female make surgical consultation related to an incidentally discovered right thyroid nodule has undergone testing with FNA biopsy resulting Afirma suspicious designation. Patient appears asymptomatic from both an endocrine and compressive standpoint. I had a nice discussion with patient regarding her personal clinical scenario and the surgical options of total thyroidectomy versus thyroid lobectomy. I shared that she met criteria for the latter based on 2015 MAHENDRA guidelines and that this would be my recommendation for her. However, I qualify this recommendation stating that occasionally there is a discordance between what is identified as the nodule dimensions on imaging versus the microscopic dimensions given by pathology on final exam postoperatively. I stated, therefore, that there could be a risk of needing to pursue completion thyroidectomy. As I conducted this conversation I shared the procedure specific risks of hypoparathyroidism and recurrent laryngeal nerve injury. Hand drawings were used to illustrate relevant anatomy. I discussed the proportional increase or decrease in risk depending on the degree of surgery. I also shared the measures that I employed to try to minimize his risk with loupe magnification and intraoperative nerve monitoring. Patient appeared to understand the discussion and confirmed that the drawings were beneficial to her understanding. Ultimately she excepted my recommendation and we will plan for thyroid lobectomy with isthmusectomy using intraoperative neuromonitoring at our mutual earliest convenience. Plan: Thyroid lobectomy with isthmusectomy using intraoperative nerve monitoring. Procedure to be planned for as a surgical outpatient disposition. I have examined the patient and the H&P has been reviewed. There are no clinical changes since date of exam. Patient has a number of questions related to procedural and postprocedural expectations. These were answered to his satisfaction. Consents were confirmed. Proceed to operating room for right thyroid lobectomy with isthmusectomy using intraoperative neuromonitoring as scheduled.
--- NOTE | 2025-05-21 07:01 | PRE.ANES_ITS ---
ASA Classification* ASA Classification ASA Classification: 2 Assessment & Plan Anesthesia* Anesthesia Assessment Anesthesia Assessment: Discussed sedation and/or anesthesia options, risks, benefits, and alternatives with patient/parents/legal guardian/POA. Questions invited. The patient/parents/legal guardian/POA seems to understand and agrees to proceed with anesthesia plan. Reviewed the physical assessment, medical history, allergy history and patient home medications list prior to surgery/procedure/anesthetic and documented any changes. Performed airway and anesthesia risk assessments. 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 When Was Last Pacemaker Check QUESTION #4 FULL TEXT: You/Your Family Experience fever (hyperthermia) with Anesthesia Last Oral Intake Last Oral intake: Last Oral Intake NPO since 02:00 05/21/25 06:38 Meds taken in AM with sips of Yes 05/21/25 06:38 water? Meds patient instructed to metoprolol 05/21/25 06:38 take am of surgery Any additional information?: Yes Meds taken in AM with sips of water?: Yes PONV PONV - magnetic grinder operator: PONV - magnetic grinder operator Female Yes 05/08/25 08:00 HX of Motion Sickness No 05/08/25 08:00 HX of N/V After Surgery No 05/08/25 08:00 Non-Smoker Yes 05/08/25 08:00 Duration of Surgery greater Yes 05/08/25 08:00 than 60 minutes Number of Risk Factors 3 05/08/25 08:00 PONV Score Moderate Risk 05/08/25 08:00 Height & Weight Height & Weight: Anesthesia: Height & Weight Height 5 ft 3 in 05/21/25 06:38 Weight: 96 kg 05/21/25 06:38 Body Mass Index (BMI) 37.5 05/21/25 06:38 Respiratory Assessment Respiratory Assessment - magnetic grinder operator: Respiratory Tract Infection Hx - magnetic grinder operator Hx Respiratory Tract Infection No 05/08/25 08:00 STOP Sleep Apnea STOP Sleep Apnea - magnetic grinder operator: STOP Sleep Apnea - magnetic grinder operator Hx Hypertension Yes: CONTROLLED WITH MEDS 05/08/25 08:00 Hx Sleep Apnea No 05/08/25 08:00 CPAP BIPAP Do you snore loudly (louder No 05/08/25 08:00 than talking or can be heard Do you often feel tired/ No 05/08/25 08:00 fatigued/ sleepy during daytime? Has anyone observed you stop No 05/08/25 08:00 breathing during sleep? STOP Results Negative 05/08/25 08:00 QUESTION #5 FULL TEXT : Do you snore loudly (louder than talking or can be heard through closed doors)? 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 Specify any problems Hx of Preganancy in last 3 No 05/08/25 08:00 Months Nurse Filling Out Transfusion [email or web address] 05/08/25 08:00 & Questions: Date: 05/08/25 05/08/25 08:00 Time: 08:03 05/08/25 08:00 Patient unable to answer at this time (ie. confused, unrespo /Reproduction History /Reproductive History - magnetic grinder operator: /Reproductive Hx- magnetic grinder operator Hx Now Gestational Age (in weeks): EDC: Hx Hx Para Hx Section SAB Active Medications Active Medications: Current Medications Generic Name Dose Route Start Last Admin Trade Name Freq PRN Reason Stop Dose Admin Lactated Ringer's 1,000 mls @ 15 mls/hr 05/21/25 06:15 05/21/25 06:36 IV 15 mls/hr .Q48H BRYAN Administration PFSH Medical History Wears glasses History of steroid therapy High cholesterol Vertigo Non-smoker Surgical procedure on varicose vein planned DVT (deep venous thrombosis) Pulmonary embolism Cataract Thyroid nodule Home Medications ?Medication ?Instructions ?Recorded ?Last Taken ?Type clobetasol 0.05 % eye 1 drp ophthalmic (eye) QODAY 04/25/25 05/19/25 History drops,suspension fluticasone propionate 50 1 spray intranasal QDAY 04/0705/20/25 History mcg/actuation nasal spray,suspension (Flonase Allergy Relief) ivermectin 1 %-metronidazole 1 1 ea topical DAILY PRN 04/25/25 05/20/25 History %-niacinamide 4 % topical gel lisinopril 10 1 tab PO QDAY 04/25/2505/20 History mg-hydrochlorothiazide 12.5 mg tablet meclizine 25 mg tablet 25 mg PO 4X/DAY PRN dizzines s 04/25/25 Unknown History metoprolol tartrate 50 mg tablet 50 mg PO BID 04/25/25 05/21/25 History phytosterol 300 mg-pantethine 100 4 cap PO DAILY 04/2505/20/25 History mg capsule (CholestOff Complete) Allergy/AdvReac Type Severity Reaction Status Date / Time No Known Allergies Allergy Verified 05/08/25 07:57 Family History Mother Thyroid disorder Thyroid cancer Sister Thyroid disorder Brother Thyroid disorder Sister Thyroid disorder Surgical History Status post Mohs micrographic surgery for basal cell carcinoma (BCC) Hx laparoscopic cholecystectomy Social History Smoking Status: Never smoker alcohol intake: never substance use type: does not use Review of Systems (Anesthesia) ROS Narrative System reviewed and no additional complaints, except as documented.
--- NOTE | 2025-05-21 07:01 | PRE.ANES_ITS ---
ASA Classification* ASA Classification ASA Classification: 2 Assessment & Plan Anesthesia* Anesthesia Assessment Anesthesia Assessment: Discussed sedation and/or anesthesia options, risks, benefits, and alternatives with patient/parents/legal guardian/POA. Questions invited. The patient/parents/legal guardian/POA seems to understand and agrees to proceed with anesthesia plan. Reviewed the physical assessment, medical history, allergy history and patient home medications list prior to surgery/procedure/anesthetic and documented any changes. Performed airway and anesthesia risk assessments. 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 When Was Last Pacemaker Check QUESTION #4 FULL TEXT: You/Your Family Experience fever (hyperthermia) with Anesthesia Last Oral Intake Last Oral intake: Last Oral Intake NPO since 02:00 05/21/25 06:38 Meds taken in AM with sips of Yes 05/21/25 06:38 water? Meds patient instructed to metoprolol 05/21/25 06:38 take am of surgery Any additional information?: Yes Meds taken in AM with sips of water?: Yes PONV PONV - hand funnel coater: PONV - hand funnel coater Female Yes 05/08/25 08:00 HX of Motion Sickness No 05/08/25 08:00 HX of N/V After Surgery No 05/08/25 08:00 Non-Smoker Yes 05/08/25 08:00 Duration of Surgery greater Yes 05/08/25 08:00 than 60 minutes Number of Risk Factors 3 05/08/25 08:00 PONV Score Moderate Risk 05/08/25 08:00 Height & Weight Height & Weight: Anesthesia: Height & Weight Height 5 ft 3 in 05/21/25 06:38 Weight: 96 kg 05/21/25 06:38 Body Mass Index (BMI) 37.5 05/21/25 06:38 Respiratory Assessment Respiratory Assessment - hand funnel coater: Respiratory Tract Infection Hx - hand funnel coater Hx Respiratory Tract Infection No 05/08/25 08:00 STOP Sleep Apnea STOP Sleep Apnea - hand funnel coater: STOP Sleep Apnea - hand funnel coater Hx Hypertension Yes: CONTROLLED WITH MEDS 05/08/25 08:00 Hx Sleep Apnea No 05/08/25 08:00 CPAP BIPAP Do you snore loudly (louder No 05/08/25 08:00 than talking or can be heard Do you often feel tired/ No 05/08/25 08:00 fatigued/ sleepy during daytime? Has anyone observed you stop No 05/08/25 08:00 breathing during sleep? STOP Results Negative 05/08/25 08:00 QUESTION #5 FULL TEXT : Do you snore loudly (louder than talking or can be heard through closed doors)? 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 Specify any problems Hx of Preganancy in last 3 No 05/08/25 08:00 Months Nurse Filling Out Transfusion [email or web address] 05/08/25 08:00 & Questions: Date: 05/08/25 05/08/25 08:00 Time: 08:03 05/08/25 08:00 Patient unable to answer at this time (ie. confused, unrespo /Reproduction History /Reproductive History - hand funnel coater: /Reproductive Hx- hand funnel coater Hx Now Gestational Age (in weeks): EDC: Hx Hx Para Hx Section SAB Active Medications Active Medications: Current Medications Generic Name Dose Route Start Last Admin Trade Name Freq PRN Reason Stop Dose Admin Lactated Ringer's 1,000 mls @ 15 mls/hr 05/21/25 06:15 05/21/25 06:36 IV 15 mls/hr .Q48H BRYAN Administration PFSH Medical History Wears glasses History of steroid therapy High cholesterol Vertigo Non-smoker Surgical procedure on varicose vein planned DVT (deep venous thrombosis) Pulmonary embolism Cataract Thyroid nodule Home Medications ?Medication ?Instructions ?Recorded ?Last Taken ?Type clobetasol 0.05 % eye 1 drp ophthalmic (eye) QODAY 04/25/25 05/19/25 History drops,suspension fluticasone propionate 50 1 spray intranasal QDAY 04/0705/20/25 History mcg/actuation nasal spray,suspension (Flonase Allergy Relief) ivermectin 1 %-metronidazole 1 1 ea topical DAILY PRN 04/25/25 05/20/25 History %-niacinamide 4 % topical gel lisinopril 10 1 tab PO QDAY 04/25/2505/20 History mg-hydrochlorothiazide 12.5 mg tablet meclizine 25 mg tablet 25 mg PO 4X/DAY PRN dizzines s 04/25/25 Unknown History metoprolol tartrate 50 mg tablet 50 mg PO BID 04/25/25 05/21/25 History phytosterol 300 mg-pantethine 100 4 cap PO DAILY 04/2505/20/25 History mg capsule (CholestOff Complete) Allergy/AdvReac Type Severity Reaction Status Date / Time No Known Allergies Allergy Verified 05/08/25 07:57 Family History Mother Thyroid disorder Thyroid cancer Sister Thyroid disorder Brother Thyroid disorder Sister Thyroid disorder Surgical History Status post Mohs micrographic surgery for basal cell carcinoma (BCC) Hx laparoscopic cholecystectomy Social History Smoking Status: Never smoker alcohol intake: never substance use type: does not use Review of Systems (Anesthesia) ROS Narrative System reviewed and no additional complaints, except as documented.
--- NOTE | 2025-05-21 09:50 | PARA_PTH ---
PATIENT: AIRAM REEVES LOC: [facility] – [place] U#:[id number] AGE/SX: 69/F ROOM: RE05/21/[address]: Dr. Elijah Suazo MD : 1955 BED: DIS: 05/21/2025 SPEC #: [id number] RECD: 05/21/25 09:56 STATUS: ESTELA INGA #: [id number] TEENA: 05/21/25 09:[address]: Elijah Suazo DEPT: SURGICAL PATHOLOGY RECD BY: Yeny Sanchez ENTERED: 05/21/25 10:46 SP TYPE: PARATHY OTHR DR: Dr. Ld Pittman MD Tissues: A - Parathyroid B - Thyroid gland, NOS Procedures: Frozen Section (charge) Surgery Specimen Level IV Surgery Specimen Level V HEADER OPERATION: Thyroidectomy with isthmus and IONM, frozen section, auto transplant PRE-OP DIAGNOSIS: Thyroid nodule TISSUE SUBMITTED: A- Rule out parathyroid, B- Right thyroid lobe and isthmus * stitch vazquez right superior pole* FROZEN SECTION DIAGNOSIS A. Rule out parathyroid: Parathyroid tissue. /mr 05/21/2025 MICROSCOPIC DIAGNOSIS A. Parathyroid tissue, biopsy: - Parathyroid tissue confirmed. B. Right thyroid and isthmus, thyroid nodule, right lobectomy with isthmus: ? 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 ? - Capsular invasion and vascular invasion observed; surgical margins free. ? - pT2,pNX ? - Parathyroid gland x1. SYNOPTIC REPORT (THYROID GLAND)? SPECIMEN: right thyroid lobe and isthmus Procedure: right thyroid lobectomy, isthmectomy TUMOR? Tumor Focality (U=unifocal, M=multifocal): U Tumor Site (select all that apply) _X_ Right lobe? Tumor Size (cm): 2.4 x 2.1 x 1.9 cm Histologic Tumor Types: _X_ Follicular thyroid carcinoma? _X_ Minimally invasive follicular carcinoma? Tumor Proliferative Activity Mitotic Rate? _X_ Less than 3 mitoses per 2mm2? Tumor Necrosis? _X_ Not identified? Angioinvasion (vascular invasion) _X_ Present (specify extent)#: 4 Lymphatic Invasion? _X_ Not identified? Extrathyroidal Extension _X_ Not identified? Margin Status? _X_ All margins negative for carcinoma? Distance from Invasive Carcinoma to Closest Margin:? _X_ Less than 1 mm? REGIONAL LYMPH NODES Regional Lymph Node Status? _X_ Not applicable (no regional lymph nodes submitted or found)? pTNM CLASSIFICATION (AJCC 8th Edition) pT Category? _X_ pT2: Tumor greater than 2 cm but less than or equal to 4 cm in greatest dimension, limited to thyroid? pN Category#? _X_ pN not assigned (no nodes submitted or found)? ADDITIONAL FINDINGS? _X_ Follicular nodular disease (Thyroid follicular nodular disease)? _X_ Parathyroid gland(s) present? +Number of Parathyroid Glands: 1? COMMENT Selected slides/images were reviewed in intradepartmental consultation by Dr Sudarshan Pak (head & neck pathology division, [facility]). MICROSCOPIC DESCRIPTION Slides are reviewed. GROSS DESCRIPTION A. Received fresh for frozen section diagnosis labeled patient's name and date of . Designated as parathyroid tissue? is a 0.4 x 0.2 x 0.1 cm apparent parathyroid gland, weighing <0.001 g. Specimen is entirely submitted for frozen section diagnosis and subsequently placed in cassette A1 for permanent sections. Frozen section diagnosis: Parathyroid tissue. (MS) 10:05Frozen section TAT: 11 minutes B. Received in formalin labeled with the patient's name and date of . Designated as right thyroid lobe and isthmus stitch at right superior pole is a 11.2 g, 4.7 x 2.8 x 1.7 cm pink-purple to red hemithyroidectomy with an attached, 2.0 x 1.1 x 0.4 cm isthmus. There is a suture designated as right superior pole the tissue adjacent to the isthmus is somewhat shaggy and cauterized. The remainder of the external surfaces are grossly intact with patchy, apparent adhesions. The specimen is inked as follows: anterior-green, posterior-black, isthmus-orange. The specimen is serially sectioned from superior to inferior revealing 2 nodules as follows: Nodule #1: Lemus-pink, soft and well-circumscribed nodule spanning the superior to inferior pole, measuring 2.4 x 2.1 x 1.9 cm. It grossly abuts the anterior and posterior margins and is located approximately 1.0 cm from the isthmus.Nodule #2: Lemus-pink to red and possibly containing colloid material, located 0.3 cm inferior to nodule #1 within the inferior pole and measuring 1.1 x 0.9 x 0.9 cm. It grossly abuts the anterior and posterior margins and is located >1.5 cm from the isthmus. The remaining thyroid parenchyma is pink-red. The specimen is entirely submitted, sequentially from superior to inferior (with the exception of the isthmus) in 10 cassettes as follows: B1: Isthmus, shavedB2: Superior pole, no nodules, perpendicularB3-B8: Nodule #1B9: Nodule #2B10: Nodule #2, inferior pole, perpendicular [place] 05/21/2025 CPT:[id number]
--- NOTE | 2025-05-21 09:50 | PARA_PTH ---
PATIENT: AIRAM REEVES LOC: [facility] [place] [facility] [place] U#:[id number] AGE/SX: 69/F ROOM: RE05/21/[address]: Dr. Elijah Suazo MD : 1955 BED: DIS: 05/21/2025 SPEC #: [id number] RECD: 05/21/25 09:56 STATUS: ESTELA INGA #: [id number] TEENA: 05/21/25 09:[address]: Elijah Suazo DEPT: SURGICAL PATHOLOGY RECD BY: Yeny Sanchez ENTERED: 05/21/25 10:46 SP TYPE: PARATHY OTHR DR: Dr. Ld Pittman MD Tissues: A - Parathyroid B - Thyroid gland, NOS Procedures: Frozen Section (charge) Surgery Specimen Level IV Surgery Specimen Level V HEADER OPERATION: Thyroidectomy with isthmus and IONM, frozen section, auto transplant PRE-OP DIAGNOSIS: Thyroid nodule TISSUE SUBMITTED: A- Rule out parathyroid, B- Right thyroid lobe and isthmus * stitch vazquez right superior pole* FROZEN SECTION DIAGNOSIS A. Rule out parathyroid: Parathyroid tissue. /mr 05/21/2025 MICROSCOPIC DIAGNOSIS A. Parathyroid tissue, biopsy: - Parathyroid tissue confirmed. B. Right thyroid and isthmus, thyroid nodule, right lobectomy with isthmus: ? 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 ? - Capsular invasion and vascular invasion observed; surgical margins free. ? - pT2,pNX ? - Parathyroid gland x1. SYNOPTIC REPORT (THYROID GLAND)? SPECIMEN: right thyroid lobe and isthmus Procedure: right thyroid lobectomy, isthmectomy TUMOR? Tumor Focality (U=unifocal, M=multifocal): U Tumor Site (select all that apply) _X_ Right lobe? Tumor Size (cm): 2.4 x 2.1 x 1.9 cm Histologic Tumor Types: _X_ Follicular thyroid carcinoma? _X_ Minimally invasive follicular carcinoma? Tumor Proliferative Activity Mitotic Rate? _X_ Less than 3 mitoses per 2mm2? Tumor Necrosis? _X_ Not identified? Angioinvasion (vascular invasion) _X_ Present (specify extent)#: 4 Lymphatic Invasion? _X_ Not identified? Extrathyroidal Extension _X_ Not identified? Margin Status? _X_ All margins negative for carcinoma? Distance from Invasive Carcinoma to Closest Margin:? _X_ Less than 1 mm? REGIONAL LYMPH NODES Regional Lymph Node Status? _X_ Not applicable (no regional lymph nodes submitted or found)? pTNM CLASSIFICATION (AJCC 8th Edition) pT Category? _X_ pT2: Tumor greater than 2 cm but less than or equal to 4 cm in greatest dimension, limited to thyroid? pN Category#? _X_ pN not assigned (no nodes submitted or found)? ADDITIONAL FINDINGS? _X_ Follicular nodular disease (Thyroid follicular nodular disease)? _X_ Parathyroid gland(s) present? +Number of Parathyroid Glands: 1? COMMENT Selected slides/images were reviewed in intradepartmental consultation by Dr Sudarshan Pak (head & neck pathology division, [facility]). MICROSCOPIC DESCRIPTION Slides are reviewed. GROSS DESCRIPTION A. Received fresh for frozen section diagnosis labeled patient's name and date of . Designated as parathyroid tissue? is a 0.4 x 0.2 x 0.1 cm apparent parathyroid gland, weighing <0.001 g. Specimen is entirely submitted for frozen section diagnosis and subsequently placed in cassette A1 for permanent sections. Frozen section diagnosis: Parathyroid tissue. (MS) 10:05Frozen section TAT: 11 minutes B. Received in formalin labeled with the patient's name and date of . Designated as right thyroid lobe and isthmus stitch at right superior pole is a 11.2 g, 4.7 x 2.8 x 1.7 cm pink-purple to red hemithyroidectomy with an attached, 2.0 x 1.1 x 0.4 cm isthmus. There is a suture designated as right superior pole the tissue adjacent to the isthmus is somewhat shaggy and cauterized. The remainder of the external surfaces are grossly intact with patchy, apparent adhesions. The specimen is inked as follows: anterior-green, posterior-black, isthmus-orange. The specimen is serially sectioned from superior to inferior revealing 2 nodules as follows: Nodule #1: Lemus-pink, soft and well-circumscribed nodule spanning the superior to inferior pole, measuring 2.4 x 2.1 x 1.9 cm. It grossly abuts the anterior and posterior margins and is located approximately 1.0 cm from the isthmus.Nodule #2: Lemus-pink to red and possibly containing colloid material, located 0.3 cm inferior to nodule #1 within the inferior pole and measuring 1.1 x 0.9 x 0.9 cm. It grossly abuts the anterior and posterior margins and is located >1.5 cm from the isthmus. The remaining thyroid parenchyma is pink-red. The specimen is entirely submitted, sequentially from superior to inferior (with the exception of the isthmus) in 10 cassettes as follows: B1: Isthmus, shavedB2: Superior pole, no nodules, perpendicularB3-B8: Nodule #1B9: Nodule #2B10: Nodule #2, inferior pole, perpendicular [place] 05/21/2025 CPT:[id number]
--- NOTE | 2025-05-21 10:51 | PCM.OPRPT ---
Operative Report (Standard) Operative Information Date of Procedure: 05/21/25 Pre-Operative Diagnosis: Biopsy-proven suspicious right thyroid nodule Post-Operative Diagnosis: Same Surgery/Procedure Performed: 1. Right thyroid lobectomy and isthmusectomy with intraoperative neuromonitoring 2. Autotransplantation of right superior parathyroid gland to right sternocleidomastoid muscle physical therapy professor: Yes Magazine Journalist: Cierra Patrick Tasks completed by ice cream freezer assistant: Hemostasis: Electrocautery and Retracting Type of Anesthesia: General/Supplemental RN Documented Start/Stop Times: Operation Date: 05/21/25 07:30 Case Time Into Pre-Op 05/21/25 06:01 Out of Pre-Op 05/21/25 07:27 Anesthesia Start 05/21/25 07:30 Into Room 05/21/25 07:30 Procedure Start 05/21/25 08:35 Procedure End 05/21/25 10:56 Anesthesia End 05/21/25 11:08 Out of Room 05/21/25 11:08 Into Recovery 05/21/25 11:10 Into Phase II Recovery 05/21/25 12:18 Out of Recovery 05/21/25 12:18 Out of Phase II 05/21/25 15:40 Procedure Start Time: 08:35 Procedure Stop Time: 10:56 Select all DRAINS/GRAFTS/IMPLANTS that apply: None Estimated Blood Loss: 15 Specimen collected: Yes Description of specimen(s) removed: 1. Rule out right superior parathyroid 2. Right thyroid lobe and isthmus Description of surgery: After appropriate identification in the preoperative holding area, the patient was brought to the operating room where she was positioned supine on the operating room table. Induction of general endotracheal anesthetic was begun and a NIMS tube was placed under glidescope view to confirm coaptation with the vocal cords anteriorly. Tube was then secured and the patient was positioned with a shoulder roll so that her head was in extension but supported. The Nims electrodes were placed and connected to the monitor. We initially had elevated resistance indices and the tube was reexamined with anesthesia using a glidescope to show that it had withdrawn and rotated out of position. Therefore it was repositioned on the vocal cords. We then had appropriate resistance showing on the monitor and tapping at the level of the cricoid produce a graphical representation of the impulse on the monitor. Patient's neck was then prepped and draped in usual sterile fashion and a formal timeout was conducted from those present. The lowest skin fold to the sternal notch was selected for incision site (this resided approximately 2 fingerbreadths cephalad to the notch). An incision was extended for 2.5 cm on either side of midline. Electrocautery was used to deepen this incision through the level of the platysma. Subplatysmal flaps were raised with the use of electrocautery and blunt dissection. The strap muscles were then divided along the medial raphe bringing us down to the level of the thyroid. Capsular attachments to the thyroid were divided with the use of LigaSure or bluntly swept away with a peanut sponge. Retractors were placed providing visualization of the right superior pole of the thyroid. The vessels of the superior pole were sequentially ligated with the use of the LigaSure device. As we moved towards the thyroid gland away from the pole vessels, we were careful to try identify the superior parathyroid gland and preserve its vascular pedicle but it was not initially visualized. I then moved inferiorly and divided the middle thyroid vein and the inferior pole vessels with LigaSure. The inferior parathyroid gland was also not grossly visualized. With the poles freed the thyroid was further mobilized medially. I bluntly the remaining strap muscle fibers from the thyroid capsule and using blunt dissection parallel to the presumed course of the recurrent laryngeal nerve, exposed the tracheoesophageal groove. I also further developed the plane between the superior pole and the thyroid cartilage. Here I visualized what I believed to be the nerve entering the larynx and using the Nims probe encountered a positive signal for the right recurrent laryngeal nerve. The nerve positively identified, I relieved the attachments of the thyroid gland to the underlying trachea with use of silk ties and the nerve was checked for a signal prior to division of any tissue. Further inspection of the tracheoesophageal groove showed what appeared to be a parathyroid gland directly overlying a thin pedunculated tubercle of Zuckerkandl. There did not appear to be any way of preserving a parathyroid on its vascular supply so I placed a titanium clip across a portion of the structure and sharply removed a small portion to be submitted for frozen section. I proceeded with further resection of the inferior pole attachments to the trachea with combination of limited electrocautery and blunt dissection. From this vantage point I was once again able to identify the recurrent laryngeal nerve and then continued my dissection between the 2 now-known points of the nerve to fully dissect it out along its course in the tracheoesophageal groove. As we again approached the nerve insertion of the cricothyroid membrane it appeared that the thyroid partially wrapped around the insertion point of the nerve so I elected to leave a minuscule thyroid remnant using 4-0 silk ligatures. The area around the ligament of Vega was densely adherent to the thyroid cartilage and this process proved tedious. Once again the recurrent laryngeal nerve signal was checked prior to the division of any thyroid tissue. Once I had assured clearance from the nerve, the remaining thyroid tissue was removed from the anterior surface of the trachea with electrocautery to include the entirety of the thyroid isthmus. In the cephalad portion of the incision, I inspected for a delphian lymph node but did not find any significant amount of tissue. The specimen was divided with the LigaSure device for hemostasis and was oriented using a Vicryl stitch through the right superior pole. During the course of our dissection I did hear back from pathology on her frozen section that the submitted specimen did indeed represent parathyroid tissue. Thus our biopsy clip was reidentified in the parathyroid tissue that was removed with our specimen. This parathyroid tissue was sharply removed from the specimen and sharply minced into minuscule pieces while being suspended in some saline solution. Our thyroid specimen was passed off the field for permanent section. The parathyroid tissue was placed on the back table for later transplantation. Pressure was applied lightly to the surgical cavity via a Ray-Sonia gauze. There was some slight oozing along the anterior surface of the trachea/associated with our small thyroid remnant well away from the recurrent laryngeal nerve where selective electrocautery was applied. The function of the recurrent laryngeal nerve was rechecked and found to be intact. We also confirmed the presence of hemostasis at the superior and inferior pole regions. Limited electrocautery was used in these regions to address a few small vessels that appeared at risk of bleeding. Satisfied with this result, the strap muscles were closed with a running 3-0 Vicryl stitch leaving a small gap at the inferior aspect of the suture line. Then the minced parathyroid tissue was brought back to the operative field and small pockets (2) were made in the sternohyoid muscle bluntly. The parathyroid slurry was divided and equal portions were placed in these pockets before the pockets were then sealed with titanium clips to complete the autotransplantation. Lastly, the platysmal flaps were closed with interrupted 3-0 Vicryl. Some additional local anesthetic was infiltrated throughout the dermis and the skin was closed in a subcuticular fashion using 4-0 Monocryl. Steri-Strips were applied. Telfa and Tegaderm were used as a dressing. The patient was then awakened from anesthetic without event and was taken to PACU for ongoing recovery. Surgical Findings: ? Relatively large right recurrent laryngeal nerve preserved intact along its course with strong Nims signal ? Biopsy?proven parathyroid tissue reimplanted to the right sternocleidomastoid muscle ? No gross visualization of right inferior parathyroid Complications Complications: No Admit VTE Documentation VTE Mechan Device Prophylaxis: SCD's
--- NOTE | 2025-05-21 10:53 | DCINST_ITS ---
Discharge Instructions Diet Discharge Diet: No restrictions (However recommend a liquid to soft diet initially postoperatively) Activity Discharge Activity: May Not Drive (While it remains difficult to check blind spots quickly) May shower in (days): 2 Ice area for (Minutes): 20 Lifting Restrictions: No lifting greater than 15 pounds for 2 weeks after surgery Dressing / Incision Call your doctor if your incision/area has: Continuous Slow Oozing, Sudden Increased Bleeding, Increased Pain/ Swelling, Increased Redness and Swelling at the incision site Call your doctor if you observe: Numbness or Tingling Remove Dressing in: 2 days (Please leave Steri-Strips intact until they fall off spontaneously or are taken off at your follow-up visit) Cleanse incision/area with: Soap & Water Follow Up Care Please Follow Up With: Elijah Suazo MD When: 7-10 days postop Test Results: Test results from this visit will be discussed in further detail at your follow- up appointment, if applicable. Discharge Plan Admission Primary Reason for Your Visit: Thyroid surgery Attending Provider: Elijah Suazo Primary Care Provider: Ld Pittman Instructions Print Language: Slovenian Discharge Orders/Prescriptions Prescriptions: Continued metoprolol tartrate 50 mg tablet 50 mg PO BID lisinopril-hydrochlorothiazide 10-12.5 mg tablet 1 tab PO QDAY fluticasone propionate [Flonase Allergy Relief] 50 mcg/actuation spray,suspension 1 spray intranasal QDAY Rx Instructions: administer into each nostril clobetasol 0.05 % drops,suspension 1 drp ophthalmic (eye) QODAY Patient Comments: USES ON TOP OF HEAD [id number]-[id number] 1-1-4 % gel 1 ea topical DAILY PRN CholestOff Complete 300-100 mg capsule 4 cap PO DAILY meclizine 25 mg tablet 25 mg PO 4X/DAY PRN (Reason: dizziness) Other Ambulatory Orders: 12 Lead EKG (Routine) Timeframe: [id number] Location: None Selected Ordered By: Dr. Eleno Cerrato Referrals / Follow Up: Ld Pittman MD [Primary Care Provider] - Disposition Disposition (needs filled in before D/C Order can be placed): Home, Self Care
--- NOTE | 2025-05-21 11:18 | PCM.POST.ANE ---
Anesthesia: Postop Eval I Current Vital Signs Temperature: 97 F Pulse Rate: 94 Blood Pressure: 147/72 Respiratory Rate: 16 Pulse Ox: 95 Oxygen Delivery Method: Nasal Cannula Oxygen Flow Rate (L/min): 3 Assessment Airway patent: Yes Spontaneous unlabored respirations: Yes Mental status: Awake and Calm nausea: No Vomiting: No Anesthesia Complication: No Fluid Hydration Crystalloid volume administer (ml): 1,400 Total IV fluid infused: 1,400 Progress Note Anesthesia document: Postop Eval 1 completed: Yes
--- NOTE | 2025-05-21 19:08 | POSTOPAN2_ITS ---
Anesthesia Postop Eval I Sum Postop Eval Completion status Anesthesia document: Postop Eval 1 completed: Yes Anesthesia Postop Eval I Summary Anesthesia Postop Eval I Summary: Anesthesia Postop Eval I: Assessment Summary Airway patent Yes 05/21/25 11:20 MANAGER TELEMETRY.[email or web address] Spontaneous unlabored Yes 05/21/25 11:20 MANAGER TELEMETRY.GDOTT respirations Mental status Awake,Calm 05/21/25 11:20 MANAGER TELEMETRY.GDOTT nausea No 05/21/25 11:20 MANAGER TELEMETRY.GDOTT Vomiting No 05/21/25 11:20 MANAGER TELEMETRY.GDOTT Anesthesia Postop Eval I: Fluid Summary Crystalloid volume administer 1,400 05/21/25 11:20 MANAGER TELEMETRY.GDOTT (ml) Colloids volume administered ( ml) Blood Product volume administered (ml) Total IV fluid infused 1,400 05/21/25 11:20 MANAGER TELEMETRY.GDOTT Anesthesia Postop Eval I: Summary Notes Anesthesia Complication No 05/21/25 11:20 MANAGER TELEMETRY.GDOTT Anesthesia Complication Comment: Post-operative progress note Anesthesia: Postop Eval II Evaluation Mental status: Awake and Calm Pain Level: 1 nausea: No Vomiting: No Complications Anesthesia Complication: No
--- NOTE | 2025-05-21 19:08 | POSTOPAN2_ITS ---
Anesthesia Postop Eval I Sum Postop Eval Completion status Anesthesia document: Postop Eval 1 completed: Yes Anesthesia Postop Eval I Summary Anesthesia Postop Eval I Summary: Anesthesia Postop Eval I: Assessment Summary Airway patent Yes 05/21/25 11:20 PREFINISH OPERATOR.GDOTT Spontaneous unlabored Yes 05/21/25 11:20 PREFINISH OPERATOR.GDOTT respirations Mental status Awake,Calm 05/21/25 11:20 PREFINISH OPERATOR.GDOTT nausea No 05/21/25 11:20 PREFINISH OPERATOR.GDOTT Vomiting No 05/21/25 11:20 PREFINISH OPERATOR.GDOTT Anesthesia Postop Eval I: Fluid Summary Crystalloid volume administer 1,400 05/21/25 11:20 PREFINISH OPERATOR.GDOTT (ml) Colloids volume administered ( ml) Blood Product volume administered (ml) Total IV fluid infused 1,400 05/21/25 11:20 PREFINISH OPERATOR.GDOTT Anesthesia Postop Eval I: Summary Notes Anesthesia Complication No 05/21/25 11:20 PREFINISH OPERATOR.GDOTT Anesthesia Complication Comment: Post-operative progress note Anesthesia: Postop Eval II Evaluation Mental status: Awake and Calm Pain Level: 1 nausea: No Vomiting: No Complications Anesthesia Complication: No
--- NOTE | 2025-05-21 19:08 | PCM.POSTANE2 ---
Anesthesia Postop Eval I Sum Postop Eval Completion status Anesthesia document: Postop Eval 1 completed: Yes Anesthesia Postop Eval I Summary Anesthesia Postop Eval I Summary: Anesthesia Postop Eval I: Assessment Summary Airway patent Yes 05/21/25 11:20 CRM DYNAMICS DEVELOPER.GDOTT Spontaneous unlabored Yes 05/21/25 11:20 CRM DYNAMICS DEVELOPER.GDOTT respirations Mental status Awake,Calm 05/21/25 11:20 CRM DYNAMICS DEVELOPER.GDOTT nausea No 05/21/25 11:20 CRM DYNAMICS DEVELOPER.GDOTT Vomiting No 05/21/25 11:20 CRM DYNAMICS DEVELOPER.GDOTT Anesthesia Postop Eval I: Fluid Summary Crystalloid volume administer 1,400 05/21/25 11:20 CRM DYNAMICS DEVELOPER.GDOTT (ml) Colloids volume administered ( ml) Blood Product volume administered (ml) Total IV fluid infused 1,400 05/21/25 11:20 CRM DYNAMICS DEVELOPER.GDOTT Anesthesia Postop Eval I: Summary Notes Anesthesia Complication No 05/21/25 11:20 CRM DYNAMICS DEVELOPER.GDOTT Anesthesia Complication Comment: Post-operative progress note Anesthesia: Postop Eval II Evaluation Mental status: Awake and Calm Pain Level: 1 nausea: No Vomiting: No Complications Anesthesia Complication: No
--- NOTE | 2025-05-21 19:08 | PCM.POSTANE2 ---
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 Spontaneous unlabored Yes 05/21/25 11:20 STUDENT FINANCIAL SERVICES COUNSELOR.GDOTT respirations Mental status Awake,Calm 05/21/25 11:20 STUDENT FINANCIAL SERVICES COUNSELOR.GDOTT nausea No 05/21/25 11:20 STUDENT FINANCIAL SERVICES COUNSELOR.GDOTT Vomiting No 05/21/25 11:20 STUDENT FINANCIAL SERVICES COUNSELOR.GDOTT Anesthesia Postop Eval I: Fluid Summary Crystalloid volume administer 1,400 05/21/25 11:20 STUDENT FINANCIAL SERVICES COUNSELOR.GDOTT (ml) Colloids volume administered ( ml) Blood Product volume administered (ml) Total IV fluid infused 1,400 05/21/25 11:20 STUDENT FINANCIAL SERVICES COUNSELOR.GDOTT Anesthesia Postop Eval I: Summary Notes Anesthesia Complication No 05/21/25 11:20 STUDENT FINANCIAL SERVICES COUNSELOR.GDOTT Anesthesia Complication Comment: Post-operative progress note Anesthesia: Postop Eval II Evaluation Mental status: Awake and Calm Pain Level: 1 nausea: No Vomiting: No Complications Anesthesia Complication: No
== END 2025-05-21 15:40 | disposition home or self-care (01) ==
LOC: SDC 05:55 → AC 05:56
PROVIDERS: PCP Internal Medicine Infectious Disease; Referring Provider Surgery; Visit Provider Surgery
PROC: (CPT 60220; principal; 2025-05-21 07:15)
DX: C73 Malignant neoplasm of thyroid gland (principal); I10 Essential (primary) hypertension; Z79.899 Other long term (current) drug therapy; Z80.8 Family history of malignant neoplasm of other organs or systems
CPT/HCPCS: 60220; 00320; 88305; 88307; 88331; A4648; J2405

== ENCOUNTER → 2025-06-25 | Outpatient (CLI) | payer MEDICARE, OTHER, SELFPAY ==
[2025-06-25 15:13] LABS: Free T3 2.4 pg/mL (2.18-3.98); T4 Total, Thyroxin 7.8 ug/dL (4.8-13.9)
== END | disposition home or self-care (01) ==
PROVIDERS: PCP Internal Medicine Infectious Disease; Referring Provider Surgery; Visit Provider Surgery
DX: E03.9 Hypothyroidism, unspecified (principal); C73 Malignant neoplasm of thyroid gland; E04.1 Nontoxic single thyroid nodule; Z90.89 Acquired absence of other organs; Z98.890 Other specified postprocedural states
CPT/HCPCS: 36415; 84436; 84443; 84481

== ENCOUNTER → 2025-07-29 | Outpatient (CLI) | payer MEDICARE, OTHER, SELFPAY ==
[2025-07-29 13:58] LABS: Free T3 2.3 pg/mL (2.18-3.98)
== END | disposition home or self-care (01) ==
PROVIDERS: PCP Internal Medicine Infectious Disease; Referring Provider Surgery; Visit Provider Surgery
DX: C73 Malignant neoplasm of thyroid gland (principal); Z90.09 Acquired absence of other part of head and neck
CPT/HCPCS: 36415; 84439; 84443; 84481

== ENCOUNTER → 2025-08-26 | Outpatient (CLI) | payer MEDICARE, OTHER, SELFPAY ==
[2025-08-26 11:17] LABS: Free T3 2.4 pg/mL (2.18-3.98)
--- OUTSIDE RECORDS SUMMARY | 2025-08-26 11:22 | XMS RPT_ITS | CCD ---
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 Role Phone Ld Mon MD Primary Care Provider ELIESER DAWN, DR LIN Primary Care Physician SCARLET DAWN, NATHANIEL Attending Unavailable ELVIA DAWN, CHELLE Consulting Unavailable CRISSY DAWN, MIN Attending Unavailable TOMÁS DAWN, DR ORELLANA Admitting Unavailable ELIESER DAWN, DR LIN Primary Care Unavailable WILBER BAIRES MD, THOR Consulting Unavailable JOSE DAWN, DR SEAN Ibrahim Consulting Jennifer ALDANA MD, DR PRO WINSTON Consulting Lorava jania DYER MD, MANUEL Gonzales Consulting Unavailable LORRAINE DAWN, PRO Huerta Consulting Unavailable SCARLET DAWN, NATHANIEL Consulting Unavailable THELMA FENTON Referring Unavailable THELMA FENTON Attending Unavailable LD MON Primary Care Unavailable ROBERT FONG Referring Unavailable THELMA FENTON Attending Unavailable LD MON Primary Care Unavailable Dr. Bud Suazo MD Attending Provider Dr. Ld Mon MD Primary Care Provider Dr. Ld Mon MD Referring Provider Dr. Bud Suazo MD Referring Provider Dr. Bud Suazo MD Other Provider ALEXANDER AREVALO MD Primary Care Unavailable ALEXANDER AREVALO MD Attending Unavailable LD MON MD Consulting Unavailable ALEXANDER AREVALO MD Admitting Unavailable PROVIDER, UNKNOWN Consulting Unavailable PROVIDER, UNKNOWN Consulting Unavailable PROVIDER, UNKNOWN Consulting Unavailable LD MON MD Consulting Unavailable LD MON MD Attending Unavailable LD MON MD Admitting Unavailable LD MON MD Primary Care Unavailable PROVIDER, UNKNOWN Consulting Unavailable PROVIDER, UNKNOWN Consulting Unavailable PROVIDER, UNKNOWN Consulting Unavailable LD MON MD Consulting Unavailable LD MON MD Attending Unavailable LD MON MD Admitting Unavailable LD MON MD Primary Care Unavailable PROVIDER, UNKNOWN Consulting Unavailable PROVIDER, UNKNOWN Consulting Unavailable PROVIDER, UNKNOWN Consulting Unavailable LD MON MD Consulting Unavailable LD MON MD Attending Unavailable LD MON MD Admitting Unavailable LD MON MD Primary Care Unavailable PROVIDER, UNKNOWN Consulting Unavailable PROVIDER, UNKNOWN Consulting Unavailable PROVIDER, UNKNOWN Consulting Unavailable LD MON MD Consulting Unavailable LD MON MD Referring Unavailable ZEV HUGGINS Primary Care Unavailable PAULETTEZEV MOY Attending Unavailable PAULETTEZEV MOY E Admitting Unavailable PROVIDER, UNKNOWN Consulting Unavailable PROVIDER, UNKNOWN Consulting Unavailable PROVIDER, UNKNOWN Consulting Unavailable ALEXANDER AREVALO MD Primary Care Unavailable ALEXANDER AREVALO MD Attending Unavailable ALEXANDER AREVALO MD Admitting Unavailable LD MON MD Consulting Unavailable PROVIDER, UNKNOWN Consulting Unavailable PROVIDER, UNKNOWN Consulting Unavailable PROVIDER, UNKNOWN Consulting Unavailable LD MON MD Consulting Unavailable LD MON MD Attending Unavailable LD MON MD Admitting Unavailable LD MON MD Primary Care Unavailable PROVIDER, UNKNOWN Consulting Unavailable PROVIDER, UNKNOWN Consulting Unavailable PROVIDER, UNKNOWN Consulting Unavailable Gabriele DAWN, Dr. Nava Attending Physician Dr. Ld Mon MD Primary Care Physician Dr. Bud Suazo MD Nurse Practitioner [phone] Omran, Yasser Primary Care Unavailable Bud Suazo Attending Unavailable Omran, Yasser Referring Unavailable Omran, Yasser Referring Unavailable Bud Suazo Attending Unavailable Omran, Yasser Primary Care Unavailable Bud Suazo Attending Unavailable Omran, Yasser Referring Unavailable Omran, Yasser Primary Care Unavailable Bud Suazo Referring Unavailable Bud Suazo Consulting Unavailable Omran, Yasser Primary Care Unavailable Bud Suazo Attending Unavailable Bud Suazo Referring Unavailable Omran, Yasser Primary Care Unavailable Bud Suazo Attending Unavailable Bud Suazo Referring Unavailable Omran, Yasser Primary Care Unavailable Bud Suazo Attending Unavailable Bud Suazo Referring Unavailable Bud Suazo Admitting Unavailable Omran, Yasser Primary Care Unavailable Bud Suazo Attending Unavailable Medications Current Medications Medication Drug Class(es) [...] Refill(s) Start Date: 04/22/23 Status: Ordered Clobetasol (2 sources) Corticosteroid Start: 04-25-2025 Start: 09-20-2022 Clobetasol Pro pionate (TEMOVATE) 0.05 % external solution once daily. 0 09/20/2022 Active Comment on above: once daily. Clobetasol 0.05 % drops,suspension (5 sources) Start: 04-25-2025 Clobetasol 0.0 5 % drops,suspension Active 1 NMA OPHTHALMIC EVERY OTHER DAY April 25, 2025 12:00am Start: 04-25-2025 Clobetasol 0.0 5 % drops,suspension Active 1 NMA OPHTHALMIC TWICE A DAY April 25, 2025 12:00am clobetasol 0.05% topical foam (2 sources) Start: 04-22-2023 clobetasol 0.0 5% topical foam Apply 1 karime, Topical, qDay, # 50 gram(s), 0 Refill(s), Foam, 95 Start Date: 04/22/23 Status: Ordered fluticasone propionate 0.05 mg/actuat metered dose nasal spray (9 sources) Corticosteroid Start: 04-25-2025 take 50 ug nasal route once daily Start: 04-22-2023 take 1 dose nasal ro napaimute once daily Flonase 50 mcg/inh nasal spray Dose = 1 spray(s), Nostril, each, qDay, 0 Refill(s) Start Date: 04/22/23 Status: Ordered fluticasone prop ionate (FLONASE NASAL) Use in the nose once daily. 0 Active Comment on above: Use in the nose once daily. hydroCHLOROthiazide 12.5 mg / lisinopril 10 mg oral tablet (9 sources) Thiazide Diuretic, Angiotensin Converting Enzyme Inhibitor Start: 04-25-2025 Start: 04-22-2023 take 1 tablet by urmila [...] topical cream (2 sources) Antiparasitic, Pediculicide Start: 04-22-2023 ivermectin 1% topical cream Apply 1 karime, Topical, qDay, # 30 gram(s), 0 Refill(s), Cream, 95 Start Date: 04/22/23 Status: Ordered Ivermectin-Metronidazol -Niacin 1-1-4 % gel (6 sources) Start: 04-25-2025 Start: 04-25-2025 Ivermectin-Met ronidazol-Niacin 1-1-4 % gel Active 1 NMA TOPICAL DAILY NEEDED April 25, 2025 12:00am Start: 04-25-2025 Ivermectin-Met ronidazol-Niacin 1-1-4 % gel Active NMA TOPICAL April 25, 2025 12:00am levothyroxine sodium 0.05 mg oral tablet (5 sources) l-Thyroxine Start: 07-29-2025 take 1 tablet by urmila th once daily Start: 06-26-2025 End: 07-29-2025 take 1 tablet by mouth once daily Levothyroxine (Levoxyl) 25 mcg tablet Discontinued 25 ug PO daily 35 35 0 June 26, 2025 12:00am July 30, 2025 12:00am July 29, 2025 2:52pm Start: 06-25-2025 End: 06-26-2025 take 1 capsule by mouth once daily Levothyroxine 25 mcg capsule Discontinued 25 ug PO daily 35 35 0 June 25, 2025 12:00am July 29, 2025 12:00am June 26, 2025 9:46am Take one capsule by mouth daily meclizine hydrochloride 25 m g oral tablet (9 sources) Antiemetic Start: 04-25-2025 take 1 tablet by urmila th four times daily as needed for dizziness Start: 04-22-2023 meclizine 25 m g oral tablet Dose : 25 mg = 1 tab(s), Oral, QID, PRN as needed for dizziness, # 30 tab(s), 0 Refill(s) Start Date: 04/22/23 Status: Ordered take 1 tablet by urmila th every eight hours as needed meclizine (ANTIVERT) 25 mg tab Take 25 mg by mouth three times daily as needed (dizziness). 0 Active Comment on above: Take 25 mg by mouth three times daily as needed (dizziness). metoprolol tartrate 50 mg oral tablet (12 sources) beta-Adrenergic Marin Start: 04-25-2025 take 1 tablet by mouth twice daily Start: 04-22-2023 End: 04-27-2023 metoprolol tartrate 50 mg or al tablet Start: 04/27/23 8:00:00 EDT, Dose = 50 mg, = 1 tab(s), Oral, 1st dose location: [facility], , 04/22/23 18:20:00 EDT Start Date: 04/27/23 Stop Date: 04/27/23 Status: Completed Start: 10-12-2022 take 1 tablet by urmila th twice daily metoprolol tartrate, short acting, (LOPRESSOR) [...] Drug Class(es) Dates Sig (Normalized) Sig (Original) ivermectin/metroni dazole/niaci (IVERMECTIN-METRON IDAZOL-NIACIN TOPICAL) (1 source) ivermectin/metro n idazole/niaci (IVERMECTIN-METRO NIDAZOL-NIACIN TOPICAL) Apply to affected area as needed. 0 Active Comment on above: Apply to affected ar ea as needed. Phytosterol-Pantet karla (Cholestoff Complete) 300-100 mg capsule (6 sources) Start: 04-25-2025 take 1 capsule by mouth once daily Start: 04-25-2025 take 1 capsule by mo [facility] once daily Phytosterol-Pantethine (Cholestoff Complete) 300-100 mg capsule Active 4 NMA PO DAILY April 25, 2025 12:00am Start: 04-25-2025 Phytosterol-Pa ntethine (Cholestoff Complete) 300-100 mg capsule Active NMA PO April 25, 2025 12:00am phytosterol/pantethine (CHOLESTOFF COMPLETE ORAL) (1 source) phytosterol/pant ethine (CHOLESTOFF COMPLETE ORAL) Take by mouth once daily. 0 Active Comment on above: Take by mouth once d aily. 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 Shared that through conversation with endocrinology the final recommendation would likely be active surveillance of the left-sided thyroid lobe rather than completion thyroidectomy but ultimately would recommended formal consultation through referral. MAHENDRA risk stratification used as a framework for therapy recommendation. During the course of this discussion patient's sister raised the history that was previously unknown that patient's mother was treated for metastatic RCC to the thyroid. Shared this was not likely to be related to patient's history. 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 Shared that through conversation with endocrinology the final recommendation would likely be active surveillance of the left-sided thyroid lobe rather than completion thyroidectomy but ultimately would recommended formal consultation through referral. MAHENDRA risk stratification used as a framework for therapy recommendation. During the course of this discussion patient's sister raised the history that was previously unknown that patient's mother was treated for metastatic RCC to the thyroid. Shared this was not likely to be related to patient's history.Update 06/25/2025: Patient has several questions today related to her diagnosis of cancer. I reviewed the pathologic diagnosis and the risk for hematogenous spread. She confirms she has an endocrinology appointment pending for mid August. Additionally, I shared that we will need to plan for surveillance for the next 2 years and I have placed a recall for 1 year repeat thyroid ultrasound to evaluate for structural disease. Diabetes mellitus without complication (1 source) Hyperglycemia, unspecified; Translations: [Hyperglycemia, unspecified] Onset: 5 Episodic Disorders of lipid metabolism (3 sources) Pure hypercholesterolemia, unspecified; Translations: [Pure hypercholesterolemia, unspecified] Onset: 4 Chronic Other and unspecified benign neoplasm (1 [...] of malignant neoplasm of digestive organs] Episodic Residual codes; unclassified (8 sources) History of thyroid lobectomy; Translations: [Acquired absence of other part of head and neck] 05-29-2025 Episodic Comment on above: Patient is a 69-year -old female that is recovering well following right thyroid lobectomy with isthmusectomy for suspicious right thyroid nodule. I have largely provided reassurance that her complaints of sore throat, voice fatigue, cough, and slight dysphagia should continue to spontaneously improve as she gets further out from her operative date. I confirmed normal function of her recurrent laryngeal nerve during the operation but there was thyroid tissue found intertwined with the insertion point at the cricothyroid joint. I am encouraged with the progress has been made with her vocal function in particular. At this point I recommend patient begin applying either vitamin E oil or cocoa butter to her incision twice daily rather indefinitely. I also underscored the need to keep the incision protected from sun as it will be particularly susceptible to UV radiation. Lastly I shared with her the need to follow-up her thyroid function at 5 weeks postop. Labs are requested and patient is instructed to present to the lab prior to her next clinic visit. Patient is a 69-year -old female that is recovering well following right thyroid lobectomy with isthmusectomy for suspicious right thyroid nodule. I have largely provided reassurance that her complaints of sore throat, voice fatigue, cough, and slight dysphagia should continue to spontaneously improve as she gets further out from her operative date. I confirmed normal function of her recurrent laryngeal nerve during the operation but there was thyroid tissue found intertwined with the insertion point at the cricothyroid joint. I am encouraged with the progress has been made with her vocal function in particular. At this point I recommend patient begin applying either vitamin E oil or cocoa butter to her incision twice daily rather indefinitely. I also underscored the need to keep the incision protected from sun as it will be particularly susceptible to UV radiation. Lastly I shared with her the need to follow-up her thyroid function at 5 weeks postop. Labs are requested and patient is instructed to present to the lab prior to her next clinic visit.Update 06/25/2025: Patient appears to have had an excellent outcome with resolution of her earlier complaints. She does report some low energy and during the course of her visit her lab results returned which showed mildly elevated TSH. I shared with her postoperative state and recent cancer diagnosis (in addition to her reports of feeling low energy) I would recommend supplementing with a small dose of levothyroxine. Will plan to recheck her levels in 5 weeks. She was given instructions on how to take this medication. Ongoing I would like for her to continue wound care as she has established as a routine. Thyroid disorders (16 sources) Thyroid nodule; Translations: [Nontoxic single thyroid nodule] Onset: 5 04-25-2025 Chronic Comment on above: Patient is 69-year-o ld female make surgical consultation related to an incidentally discovered right thyroid nodule has undergone testing with FNA biopsy resulting Afirma "suspicious" designation. Patient appears asymptomatic from both an endocrine and compressive standpoint. I had a nice discussion with patient regarding her personal clinical scenario and the surgical options of total thyroidectomy versus thyroid lobectomy. I shared that she met criteria for the latter based on 2015 MAHENDRA guidelines and that this would be my recommendation for her. However, I qualify this recommendation stating that occasionally there is a discordance between what is identified as the nodule dimensions on imaging versus the microscopic dimensions given by pathology on final exam postoperatively. I stated, therefore, that there could be a risk of needing to pursue completion thyroidectomy. As I conducted this conversation I shared the procedure specific risks of hypoparathyroidism and recurrent laryngeal nerve injury. Hand drawings were used to illustrate relevant anatomy. I discussed the proportional increase or decrease in risk depending on the degree of surgery. I also shared the measures that I employed to try to minimize his risk with loupe magnification and intraoperative nerve monitoring. Patient appeared to understand the discussion and confirmed that the drawings were beneficial to her understanding. Ultimately she excepted my recommendation and we will plan for thyroid lobectomy with isthmusectomy using intraoperative neuromonitoring at our mutual earliest convenience. Unclassified (2 sources) Status post thyroidectomy Unclassified (2 sources) Papillary carcinoma of thyroid Unclassified (3 sources) Z98.890 - Other specified postprocedural states,Z90.89 - Acquired absence of other organs,E04.1 - Nontoxic single thyroid nodule,C73 - Malignant neoplasm of thyroid gland Past or Other Problems Problem Classification Problem Date Documented Da te Episodic/Chronic Hemorrhoids (1 source) Internal hemorrhoids; Translations: [Other hemorrhoids] Onset: 6 09-13-2006 Episodic Other and unspecified benign neoplasm (1 source) Personal history of colonic polyps; Translations: [History of colonic polyps] Onset: 3 Episodic Other gastrointestinal disorders (1 source) Diarrhea; [...] Test Name Value Interpretation Reference Range Facility Free T3on 07-29-2025 Free T3 [Mass/Vol] 2.3 pg/mL Normal 2.18-3.98 [facility] Comment on above: Performed By: #### L 506.0400, L501.51065, L501.9520 #### [facility] [address] [place], [place], [id number] Free [id number] By: Bud fulton on 07-29-2025 Free T3 [Mass/Vol] 2.3 pg/mL 2.18-3.98 [facility] T4 Free Directon 07-29-2025 T4 FREE DIRECT 1.10 ng/dL Normal 0.76-1.46 [facility] Comment on above: Performed By: #### L 506.0400, L501.53694, L501.9520 #### [facility] [address] [place], [address] T4 freeOrdered By: Bud fulton on 07-29-2025 Free T4 [Mass/Vol] 1.10 ng/dL 0.76-1.46 [facility] TSH DL <= 0.005 mIU/L QnOrde red By: Bud Suazo on 07-29-2025 TSH Qn 4.260 uIU/mL High 0.300-4.200 [facility] Thyroid Stim Hormone (TSH)on 07-29-2025 TSH 4.260 uIU/mL High 0.300-4.200 [facility] Comment on above: Performed By: #### L 506.0400, L501.38992, L501.9520 #### [facility] [address] [place], [address] Free T3on 06-25-2025 Free T3 [Mass/Vol] 2.4 pg/mL Normal 2.18-3.98 [facility] Comment on above: Performed By: #### L 501.9520, L501.9310, L501.69510 #### [facility] [address] [place], [address] Free [id number] By: Bud fulton on 06-25-2025 Free T3 [Mass/Vol] 2.4 pg/mL 2.18-3.98 [facility] Surgery Visit Reporton 06-25 Surgery Visit Report [facility] [address] [place] [address] OFFICE VISIT Date of Service: 06/25/25 MR#: [id number] Acct: [id number] Name: ASHLEY TUTTLE Rep #: [id number] 12 : 1955 Provider: Dr. Bud falk MD Age/Sex: 69/F Location: [facility] Status: Signed Intake Vital Signs 05/21/25 06:38 Height 5 ft 3 in Intake Visit Reasons: 5 WK S/P THYROIDECTOMY Chief Complaint: 5 wk s/p thyroidectomy Is patient in pain?: No Allergies No Known Allergies Allergy (Verified 06/25/25 14:40) Medications ???Medication ???Instructions ???Recorded ???Confirmed ???Type clobetasol 0.05 % eye 1 drp ophthalmic (eye) QODAY 04/2506/25/25 History drops,suspension fluticasone propionate 50 1 spray intranasal QDAY 04/25/25 0 06/25/25 History mcg/actuation nasal spray,suspension (Flonase Allergy Relief) ivermectin 1 %-metronidazole 1 1 ea topical DAILY PRN 04/25/25 History %-niacinamide 4 % topical gel lisinopril 10 1 tab PO QDAY 04/25/25 06/25/25 Hi story mg-hydrochlorothiazide 12.5 mg tablet meclizine 25 mg tablet 25 mg PO 4X/DAY PRN dizziness 04/0706/25/25 History metoprolol tartrate 50 mg tablet 50 mg PO BID 04/25/25 06/25/25 His tory phytosterol 300 mg-pantethine 100 4 cap PO DAILY 04/25/25 06/25/25 History mg capsule (CholestOff Complete) levothyroxine 25 mcg capsule 25 mcg PO QDAY 5 weeks #35 caps 06/25/25 Rx Have you fallen in the past year?: No Subjective Details: Patient is 69-year-old female who presents for second postoperative visit status post right thyroid lobectomy 05/21/2025. She presents again today with her sister. She reports that generally "everything is good". She offhandedly mentions that she is having to clear her throat more than usual but is uncertain whether this represents a postoperative change or simply related to allergies. She also notes that her throat previously felt like there were marbles in it but this has improved. She has been faithful with her use of a combination product containing cocoa butter and vitamin E oil. She notes that she is overall "very pleased" with her healing. She has several questions related to resuming her other medical treatments including use of cortisone injections for her joints, return to massotherapy, and cataract surgery. Lastly, she mentions that her energy level is sometimes adequate but sometimes not and she notes that she generally ends a day feeling very fatigued. She completed labs ahead of today's clinic visit. Below is recapitulated from patient's initial postoperative visit: Patient presents following right thyroid lobectomy with isthmusectomy on 05/21/2025. She presents today with her sister. Since hospital discharge they have been doing well. They report minimal postoperative pain and no need for postoperative pain medication. She is happy to declare that her recovery exceeded expectations. However, she shares that she still has a sore throat that is getting better with time. Additionally, she complains of some hoarseness that presents after she talks for a longer period of time but overall this has significantly improved. Lastly, she complains of a cough since surgery that is also getting better with additional time. She describes her swallow as being somewhat "constrained" but notes this also to be improving with time. They had no wound concerns. Objective Details: Constitutional: Appreciative Neck: Nearly indistinguishable surgical incision that is well-healed, there is no tenderness, there is no induration Coding Level of Care Code Global Post Op Diagnoses History of lobectomy of thyroid Z90.09 Follicular carcinoma of thyroid C73 [facility] Medical History (Updated 06/25/25 @ 16:[address] Bud Suazo MD) Papillary thyroid carcinoma Wears glasses History of steroid therapy High cholesterol Vertigo Non-smoker Surgical procedure on varicose vein planned DVT (deep venous thrombosis) Pulmonary embolism Cataract Thyroid nodule Surgical History (Updated 06/25/25 @ 16:[address] Bud Suazo MD) S/P thyroidectomy Status post Mohs micrographic surgery for basal cell carcinoma (BCC) Hx laparoscopic cholecystectomy Family History Mother Thyroid disorder Thyroid cancer Sister Thyroid disorder Brother Thyroid disorder Sister Thyroid disorder Social History Smoking Status: Never smoker alcohol intake: never substance use type: does not use Assessment and Plan (No Qualifiers) Assessment and Plan (1) History of lobectomy of thyroid: Status: Acute Comment: Patient is a 69-year-old female that is recovering well follow (more content not included)... Normal [facility] T4 Total, Thyroxinon 025 T4 [Mass/Vol] 7.8 ug/dL Normal 4.8-13.9 [facility] Comment on above: Performed By: #### L 501.9520, L501.9310, L501.65255 #### [facility] [address] [place], [address] TSH DL <= 0.005 mIU/L QnOrde red By: Bud Suazo on 06-25-2025 TSH Qn 5.610 uIU/mL High 0.300-4.200 [facility] Thyroid Stim Hormone (TSH)on 06-25-2025 TSH 5.610 uIU/mL High 0.300-4.200 [facility] Comment on above: Performed By: #### L 501.9520, L501.9310, L501.26757 #### [facility] [address] [place], [address] ThyroxineOrdered By: Bud Suazo on 06-25-2025 T4 [Mass/Vol] 7.8 ug/dL 4.8-13.9 [facility] Surgery Visit Reporton 05-29 Surgery Visit Report [facility] [address] [place] [address] OFFICE VISIT Date of Service: 05/29/25 MR#: [id number] Acct: [id number] Name: ASHLEY TUTTLE Rep #: [id number] 85 : 1955 Provider: Dr. Bud falk MD Age/Sex: 69/F Location: [facility] Status: Signed Intake Vital Signs 05/21/25 06:38 Height 5 ft 3 in Intake Visit Reasons: Thyroidectomy 05/21/25 Chief Complaint: thyroidectomy 05/21/25 Is patient in pain?: No Allergies No Known Allergies Allergy (Verified 05/29/25 09:52) Medications ???Medication ???Instructions ???Recorded ???Confirmed ???Type clobetasol 0.05 % eye 1 drp ophthalmic (eye) QODAY 04/2505/29/25 History drops,suspension fluticasone propionate 50 1 spray intranasal QDAY 04/25/25 0 05/29/25 History mcg/actuation nasal spray,suspension (Flonase Allergy Relief) ivermectin 1 %-metronidazole 1 1 ea topical DAILY PRN 04/25/25 History %-niacinamide 4 % topical gel lisinopril 10 1 tab PO QDAY 04/25/25 05/29/25 Hi story mg-hydrochlorothiazide 12.5 mg tablet meclizine 25 mg tablet 25 mg PO 4X/DAY PRN dizziness 04/0705/29/25 History metoprolol tartrate 50 mg tablet 50 mg PO BID 04/25/25 05/29/25 His tory phytosterol 300 mg-pantethine 100 4 cap PO DAILY 04/25/25 05/29/25 History mg capsule (CholestOff Complete) Have you fallen in the past year?: No Subjective Details: Patient presents following right thyroid lobectomy with isthmusectomy on 05/21/2025. She presents today with her sister. Since hospital discharge they have been doing well. They report minimal postoperative pain and no need for postoperative pain medication. She is happy to declare that her recovery exceeded expectations. However, she shares that she still has a sore throat that is getting better with time. Additionally, she complains of some hoarseness that presents after she talks for a longer period of time but overall this has significantly improved. Lastly, she complains of a cough since surgery that is also getting better with additional time. She describes her swallow as being somewhat "constrained" but notes this also to be improving with time. They had no wound concerns. Objective Details: Constitutional: No acute distress, appreciative Neck: Ecchymotic changes on the right terminus of wound with slight indurated texture upon palpation favoring the right side of the wound. No fluctuance or erythema. Minimal tenderness with palpation. Overall well-healing. Coding Level of Care Code Global Post Op Diagnoses History of lobectomy of thyroid Z90.09 Follicular carcinoma of thyroid C73 [facility] Medical History (Updated 05/29/25 @ 18:[address] Bud Suazo MD) Papillary thyroid carcinoma Wears glasses History of steroid therapy High cholesterol Vertigo Non-smoker Surgical procedure on varicose vein planned DVT (deep venous thrombosis) Pulmonary embolism Cataract Thyroid nodule Surgical History (Updated 05/29/25 @ 18:[address] Bud Suazo MD) S/P thyroidectomy Status post Mohs micrographic surgery for basal cell carcinoma (BCC) Hx laparoscopic cholecystectomy Family History Mother Thyroid disorder Thyroid cancer Sister Thyroid disorder Brother Thyroid disorder Sister Thyroid disorder Social History Smoking Status: Never smoker alcohol intake: never substance use type: does not use Assessment and Plan (No Qualifiers) Assessment and Plan (1) History of lobectomy of thyroid: Status: Acute Comment: Patient is a 69-year-old female that is recovering well following right thyroid lobectomy with isthmusectomy for suspicious right thyroid nodule. I have largely provided reassurance that her complaints of sore throat, voice fatigue, cough, and slight dysphagia should continue to spontaneously improve as she gets further out from her operative date. I confirmed normal function of her recurrent laryngeal nerve during the operation but there was thyroid tissue found intertwined with the insertion point at the cricothyroid joint. I am encouraged with the progress has been made with her vocal function in particular. At this point I recommend patient begin applying either vitamin E oil or cocoa butter to her incision twice daily rather indefinitely. I also underscored the need to keep the incision protected from sun as it will be particularly susceptible to UV radiation. Lastly I shared with her the need to follow-up her thyroid function at 5 weeks postop. Labs are requested and patient is instructed to present to the lab prior to her next clinic visit. Plan: ??? Wound care as above ??? 5-week follow-up visit wit (more content not included)... Normal [facility] Discharge Instructionon 05-07 Discharge Instruction [facility] Medical Records Department [address] [place] [address] Instructions for Home/Discharge Instructions 05/21/25 1053 MR#: [id number] Acct: [id number] Name: ASHLEY TUTTLE Rep #: [id number] : 1955 69 From: Bud Suazo MD PCP: Dr. Ld Mon MD Status:DEP [facility] Discharge Instructions Diet Discharge Diet: No restrictions (However recommend a liquid to soft diet initially postoperatively) Activity Discharge Activity: May Not Drive (While it remains difficult to check blind spots quickly) May shower in (days): 2 Ice area for (Minutes): 20 Lifting Restrictions: No lifting greater than 15 pounds for 2 weeks after surgery Dressing / Incision Call your doctor if your incision/area has: Continuous Slow Oozing, Sudden Increased Bleeding, Increased Pain/ Swelling, Increased Redness and Swelling at the incision site Call your doctor if you observe: Numbness or Tingling Remove Dressing in: 2 days (Please leave Steri-Strips intact until they fall off spontaneously or are taken off at your follow-up visit) Cleanse incision/area with: Soap Water Follow Up Care Please Follow Up With: Bud Suazo MD When: 7-10 days postop Test Results: Test results from this visit will be discussed in further detail at your follow-up appointment, if applicable. Discharge Plan Admission Primary Reason for Your Visit: Thyroid surgery Attending Provider: Bud Suazo Primary Care Provider: Ld Mon Instructions Print Language: Latvian Discharge Orders/Prescriptions Prescriptions: Continued metoprolol tartrate 50 mg tablet 50 mg PO BID lisinopril-hydrochloro thiazide 10-12.5 mg tablet 1 tab PO QDAY fluticasone propionate [Flonase Allergy Relief] 50 mcg/actuation spray,suspension 1 spray intranasal QDAY Rx Instructions: administer into each nostril clobetasol 0.05 % drops,suspension 1 drp ophthalmic (eye) QODAY Patient Comments: USES ON TOP OF HEAD ivermectin-metronidazo l-niacin 1-1-4 % gel 1 ea topical DAILY PRN CholestOff Complete 300-100 mg capsule 4 cap PO DAILY meclizine 25 mg tablet 25 mg PO 4X/DAY PRN (Reason: dizziness) Other Ambulatory Orders: 12 Lead EKG (Routine) Timeframe: [id number] Location: None Selected Ordered By: Dr. Eleno Cerrato Referrals / Follow Up: Ld Mon MD [Primary Care Provider] - Disposition Disposition (needs filled in before D/C Order can be placed): Home, Self Care 05/21/25 1659 Bud Suazo MD CC: Dr. Ld Mon MD Signed Normal [facility] Frozen Section (charge)on Frozen Section (charge) ---- Patient Age/Sex Location Account Attending Physician ---- ASHLEY TUTTLE 69/F [facility] [id number] Dr. Bud Suazo MD ---- Specimen: [id number] Received: 05/21/25 Status: ESTELA Sibley Num: [id number] Spec Type: PARATHY Subm Dr: Dr. Bud Suazo MD HEADER OPERATION: Thyroidectomy with isthmus and IONM, frozen section, auto transplant PRE-OP DIAGNOSIS: Thyroid nodule TISSUE SUBMITTED: A- Rule out parathyroid, B- Right thyroid lobe and isthmus * stitch vazquez right superior pole* ---- FROZEN SECTION DIAGNOSIS A. Rule out parathyroid: Parathyroid tissue. / 05/21/2025 MICROSCOPIC DIAGNOSIS A. Parathyroid tissue, biopsy: - Parathyroid tissue confirmed. B. Right thyroid and isthmus, "thyroid nodule", right lobectomy with isthmus: ? 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 ? - Capsular invasion and vascular invasion observed; surgical margins free. ? - pT2,pNX ? - Parathyroid gland x1. SYNOPTIC REPORT (THYROID GLAND)??? SPECIMEN: right thyroid lobe and isthmus Procedure: right thyroid lobectomy, isthmectomy TUMOR??? Tumor Focality (U=unifocal, M=multifocal): U Tumor Site (select all that apply) _X_ Right lobe??? Tumor Size (cm): 2.4 x 2.1 x 1.9 cm Histologic Tumor Types: _X_ Follicular thyroid carcinoma??? _X_ Minimally invasive follicular carcinoma??? Tumor Proliferative Activity Mitotic Rate??? _X_ Less than 3 mitoses per 2mm2??? Tumor Necrosis??? _X_ Not identified??? Angioinvasion (vascular invasion) _X_ Present (specify extent)#: 4 Lymphatic Invasion??? _X_ Not identified??? Extrathyroidal Extension _X_ Not identified??? ---- Patient Age/Sex Location Account Attending Physician ---- ASHLEY TUTTLE 69/F [facility] [id number] Dr. Bud Suazo MD ---- Margin Status??? _X_ All margins negative for carcinoma??? Distance from Invasive Carcinoma to Closest Margin:??? _X_ Less than 1 mm??? REGIONAL LYMPH NODES Regional Lymph Node Status??? _X_ Not applicable (no regional lymph nodes submitted or found)??? pTNM CLASSIFICATION (AJCC 8th Edition) pT Category??? _X_ pT2: Tumor greater than 2 cm but less than or equal to 4 cm in greatest dimension, limited to thyroid??? pN Category#??? _X_ pN not assigned (no nodes submitted or found)??? ADDITIONAL FINDINGS??? _X_ Follicular nodular disease (Thyroid follicular nodular disease)??? _X_ Parathyroid gland(s) present??? +Number of Parathyroid Glands: 1??? COMMENT Selected slides/images were reviewed in intradepartmental consultation by Dr Sudarshan Pak (head neck pathology division, [facility]). MICROSCOPIC DESCRIPTION Slides are reviewed. GROSS DESCRIPTION A. Received fresh for frozen section diagnosis labeled patient's name and date of . Designated as parathyroid tissue? is a 0.4 x 0.2 x 0.1 cm apparent parathyroid gland, weighing <0.001 g. Specimen is entirely submitted for frozen section diagnosis and subsequently placed in cassette A1 for permanent sections. Frozen section diagnosis: Parathyroid tissue. (MS) 10:05Frozen section TAT: 11 minutes B. Received in formalin labeled with the patient's name and date of . Designated as " right thyroid lobe and isthmus stitch at right superior pole" is a 11.2 g, 4.7 x 2.8 x 1.7 cm pink-purple to red hemithyroidectomy with an attached, 2.0 x 1.1 x 0.4 cm isthmus. There is a suture designated as "right superior pole" the tissue adjacent to the isthmus is somewhat shaggy and cauterized. The remainder of the external surfaces are grossly intact with patchy, apparent adhesions. The specimen is inked as follows: anterior-green, posterior-black, isthmus-orange. The specimen is serially sectioned from superior to inferior revealing 2 nodules as follows: Nodule #1: Lemus-pink, soft and well-circumscribed nodule spanning the superior to inferior pole, measuring 2.4 x 2.1 x 1.9 cm. It grossly abuts the anterior and posterior margins and is located approximately 1.0 cm from the isthmus.Nodule #2: Lemus-pink to red and possibly ----- (more content not included)... Normal [facility] Comment on above: Performed By: #### P FSC #### [facility] [address] [place], [address] MR/POSTOP.Bel 05-21-2025 MR/POSTOP.GERRY [facility] Medical Records Department [address] [place] [address] Anesthesia Postop Eval I 05/21/25 1118 MR#: [id number] Acct: [id number] Name: ASHLEY TUTTLE Rep #: [id number] : 1955 69 From: Miri Sherman CRNA PCP: Dr. Ld Mon MD Status:[facility] Y Race: C Location: [place] [address] Anesthesia: Postop Eval I Current Vital Signs Temperature: 97 F Pulse Rate: 94 Blood Pressure: 147/72 Respiratory Rate: 16 Pulse Ox: 95 Oxygen Delivery Method: Nasal Cannula Oxygen Flow Rate (L/min): 3 Assessment Airway patent: Yes Spontaneous unlabored respirations: Yes Mental status: Awake and Calm nausea: No Vomiting: No Anesthesia Complication: No Fluid Hydration Crystalloid volume administer (ml): 1,400 Total IV fluid infused: 1,400 Progress Note Anesthesia document: Postop Eval 1 completed: Yes 05/21/25 1120 Date Miri Sherman FOOT SPECIALIST Cosigner Signature: Date CC: Signed Normal [facility] MR/[id number] 05-21-2025 /[facility] Medical Records Department [facility] [place] [address] Anesthesia Postop Eval II 05/21/25 1908 MR#: [id number] Acct: [id number] Name: ASHLEY TUTTLE Rep #: [id number] : 1955 69 From: Eleno Cerrato MD PCP: Dr. Ld Mon MD Status:[facility] Y Race: C Location: [facility] Anesthesia Postop Eval I Sum Postop Eval Completion status Anesthesia document: Postop Eval 1 completed: Yes Anesthesia Postop Eval I Summary Anesthesia Postop Eval I Summary: Anesthesia Postop Eval I: Assessment Summary Airway patent Yes 05/21/25 11:20 FOOT SPECIALIST.GDOTT Spontaneous unlabored Yes 05/21/25 11:20 FOOT SPECIALIST.GDOTT respirations Mental status Awake,Calm 05/21/25 11:20 FOOT SPECIALIST.GDOTT nausea No 05/21/25 11:20 FOOT SPECIALIST.GDOTT Vomiting No 05/21/25 11:20 FOOT SPECIALIST.GDOTT Anesthesia Postop Eval I: Fluid Summary Crystalloid volume administer 1,400 05/21/25 11:20 FOOT SPECIALIST.GDOTT (ml) Colloids volume administered ( ml) Blood Product volume administered (ml) Total IV fluid infused 1,400 05/21/25 11:20 FOOT SPECIALIST.GDOTT Anesthesia Postop Eval I: Summary Notes Anesthesia Complication No 05/21/25 11:20 FOOT SPECIALIST.GDOTT Anesthesia Complication Comment: Post-operative progress note Anesthesia: Postop Eval II Evaluation Mental status: Awake and Calm Pain Level: 1 nausea: No Vomiting: No Complications Anesthesia Complication: No 05/21/25 1909 Date Eleno Cerrato MD Cosigner Signature: Date CC: Signed Normal [facility] Operative Reporton 5 Operative Report [facility] Medical Records Department [address] [place] [address] Operative Report 05/21/25 1051 MR#: [id number] Acct: [id number] Name: ASHLEY TUTTLE Rep #: [id number] : 1955 69 From: Bud Suazo MD PCP: Dr. Ld Mon MD Status:[facility] Location: [facility] Operative Report (Standard) Operative Information Date of Procedure: 05/21/25 Pre-Operative Diagnosis: Biopsy-proven "suspicious" right thyroid nodule Post-Operative Diagnosis: Same Surgery/Procedure Performed: 1. Right thyroid lobectomy and isthmusectomy with intraoperative neuromonitoring 2. Autotransplantation of right superior parathyroid gland to right sternocleidomastoid muscle consultant dietitian: Yes Roving Weight Gauger: Cierra Patrick Tasks completed by patient clerical assistant: Hemostasis: Electrocautery and Retracting Type of Anesthesia: General/Supplemental RN Documented Start/Stop Times: Operation Date: 05/21/25 07:30 Case Time Into Pre-Op 05/21/25 06:01 Out of Pre-Op 05/21/25 07:27 Anesthesia Start 05/21/25 07:30 Into Room 05/21/25 07:30 Procedure Start 05/21/25 08:35 Procedure End 05/21/25 10:56 Anesthesia End 05/21/25 11:08 Out of Room 05/21/25 11:08 Into Recovery 05/21/25 11:10 Into Phase II Recovery 05/21/25 12:18 Out of Recovery 05/21/25 12:18 Out of Phase II 05/21/25 15:40 Procedure Start Time: 08:35 Procedure Stop Time: 10:56 Select all DRAINS/GRAFTS/IMPLANTS that apply: None Estimated Blood Loss: 15 Specimen collected: Yes Description of specimen(s) removed: 1. Rule out right superior parathyroid 2. Right thyroid lobe and isthmus Description of surgery: After appropriate identification in the preoperative holding area, the patient was brought to the operating room where she was positioned supine on the operating room table. Induction of general endotracheal anesthetic was begun and a NIMS tube was placed under glidescope view to confirm coaptation with the vocal cords anteriorly. Tube was then secured and the patient was positioned with a shoulder roll so that her head was in extension but supported. The Nims electrodes were placed and connected to the monitor. We initially had elevated resistance indices and the tube was reexamined with anesthesia using a glidescope to show that it had withdrawn and rotated out of position. Therefore it was repositioned on the vocal cords. We then had appropriate resistance showing on the monitor and tapping at the level of the cricoid produce a graphical representation of the impulse on the monitor. Patient's neck was then prepped and draped in usual sterile fashion and a formal timeout was conducted from those present. The lowest skin fold to the sternal notch was selected for incision site (this resided approximately 2 fingerbreadths cephalad to the notch). An incision was extended for 2.5 cm on either side of midline. Electrocautery was used to deepen this incision through the level of the platysma. Subplatysmal flaps were raised with the use of electrocautery and blunt dissection. The strap muscles were then divided along the medial raphe bringing us down to the level of the thyroid. Capsular attachments to the thyroid were divided with the use of LigaSure or bluntly swept away with a peanut sponge. Retractors were placed providing visualization of the right superior pole of the thyroid. The vessels of the superior pole were sequentially ligated with the use of the LigaSure device. As we moved towards the thyroid gland away from the pole vessels, we were careful to try identify the superior parathyroid gland and preserve its vascular pedicle but it was not initially visualized. I then moved inferiorly and divided the middle thyroid vein and the inferior pole vessels with LigaSure. The inferior parathyroid gland was also not grossly visualized. With the poles freed the thyroid was further mobilized medially. I bluntly the remaining strap muscle fibers from the thyroid capsule and using blunt dissection parallel to the presumed course of the recurrent laryngeal nerve, exposed the tracheoesophageal groove. I also further developed the plane between the superior pole and the thyroid cartilage. Here I visualized what I believed to be the nerve entering the larynx and using the Nims probe encountered a positive signal for the right recurrent laryngeal nerve. The nerve positively identified, I relieved the attachments of the thyroid gland to the underlying trachea with use of silk ties and the nerve was checked for a signal prior to division of any tissue. Further inspection of the tracheoesophageal groove showed what appeared to be a parathyroid gland directly overlying a thin pedunculated tubercle of Zuckerkandl. There did not appear to be any way of preserving a parathyroid on its vascular supply so I placed a titanium clip across a portion of the s (more content not included)... Normal [facility] Supplemental Reporton 2024 Supplemental Report . Pathology Reports Accession: Collected Date/Time: Received Date/Time: Pathologist: [id number] 03/27/2025 08:55 EDT 03/28/2025 08:59 EDT MD ROBERT ARGUETA Supplemental Report SUPPLEMENTAL: AFIRMA-Genomic Sequencing Medical Referral Coordinator Results: Nodule: A, Thyroid, Right Side, 3.1 cm Genomic Sequencing Medical Referral Coordinator: Suspicious Risk of Malignancy: 50% MTC: Negative Parathyroid: Negative BRAF p. V600E c. 1799T>A: Negative RET/PTC1, RET/PTC3: Not Detected AFIRMA XPression Burton: No Variant/Fusion Detected Nodule Result Summary: The result of this 3.1 cm [place] III nodule A is Afirma GSC Suspicious which suggests a risk of cancer of approximately 50%. The Risk of Malignancy of a GSC Suspicious Afirma XA negative sample remains approximately 50%. Clinical correlation and surgical resection should be considered. Complete report scanned into chart. Verified by Diagnostic interpretation performed at [facility] ROBERT ARGUETA MD Sign out Date: 04/25/2025 16:11 Performing Lab: [facility], [address] [place] [address] Pathology Dept Non-Joint Finisher Cytology Report CLINICAL INFORMATION: nontoxic single thyroid nodule [id number] DIAGNOSTIC CATEGORY: ATYPIA OF UNDETERMINED SIGNIFICANCE Per Bernie Cytology protocol, this specimen has been sent for Afirma Genomic Sequencing Medical Referral Coordinator test. Results to follow in about 2 weeks. SPECIMEN: Right thyroid FNA GROSS DESCRIPTION: # of Monolayers: 1 Volume (ml) 30 Color: fixed clear pink needle rinse in CytoLyt Afirma sample collected for reflex testing SUGGESTION/EDUCATIONAL NOTES: This specimen was evaluated using criteria described in The [place] System for Reporting Thyroid Cytopathology, Second Edition (2018). The following risk of malignancy rates are estimates based on published studies and includes data extrapolation. Individual institutions may have different rates. Actual management may depend on other factors (e.g., clinical. Sonographic) besides the FNA interpretation. Pathology Reports Accession: Collected Date/Time: Received Date/Time: Pathologist: [id number] 03/27/2025 08:55 EDT 03/28/2025 08:59 EDT MD [...] lobectomy Verified by Pathology Report verified by [facility] Screened by: GEETHA Electronically signed by ROBERT ARGUETA MD Sign-Out Date: 03/29/2025 10:45 Performing Lab: [facility], [address] [place] [address] Pathology Dept Disclaimer If ancillary studies were utilized, the following Laboratory Developed Test (LDT) disclaimer will apply: Under CLIA requirements, [facility] is qualified to perform high complexity testing. For all ancillary stains, positive and negative controls stain appropriately. Performance characteristics of immunohistochemical and chromogenic in-situ hybridization tests have been determined by [facility]. These tests are used for clinical purposes, They should not be regarded as investigational or for research. Normal [facility] Surgery Visit Reporton 04-25 Surgery Visit Report [facility] [address] [place] [address] OFFICE VISIT Date of Service: 04/25/25 MR#: [id number] Acct: [id number] Name: ASHLEY TUTTLE Rep #: [id number] : 1955 Provider: Dr. Bud falk MD Age/Sex: 69/F Location: [facility] Status: Signed Intake Vital Signs 04/25/25 [...] thyroid nodule and final Afirma testing returned "suspicious". Other tests include: TSH: 2.41 (10/08/2024) ROS [...] No cough, (more content not included)... Normal [facility] CBC (NO DIFF)on 04-22-2025 CBC panel Auto (Bld) Normal [facility] Comment on above: Result Comment: CBC( WITHOUT DIFFERENTIAL) Performed By: #### 2 [id number] #### [facility],[address] [place] [address] Erythrocyte distribution width (RBC) [Ratio] 13.3 % Normal 12.0 - 15.6 [facility] Comment on above: Performed By: #### 2 [id number] #### [facility],[address] [place] [address] Hematocrit (Bld) [Volume fraction] 39.2 % Normal 34.0 - 46.0 [facility] Comment on above: Performed By: #### 2 [id number] #### [facility],[address] [place] [address] Hemoglobin (Bld) [Mass/Vol] 13.6 g/dL Normal 12.0 - 16.0 [facility] Comment on above: Performed By: #### 2 [id number] #### [facility],[address] [place] [address] MCH (RBC) [Entitic mass] 31 pg Normal 27 - 33 [facility] Comment on above: Performed By: #### 2 [id number] #### [facility],[address] [place] [address] MCHC 35 X10 3 Normal 32 - 36 [facility] Comment on above: Performed By: #### 2 [id number] #### [facility],[address] [place] [address] MCV (RBC) [Entitic vol] 88 fL Normal 80 - 99 [facility] Comment on above: Performed By: #### 2 [id number] #### [facility],[address] [place] [address] PLATELET 237 x10EE3/UL Normal 150 - 450 [facility] Comment on above: Performed By: #### 2 83795 #### [facility],[address] [place] [address] 41351 Platelet mean volume (Bld) [Entitic vol] 8.3 fL Normal 6.6 - 10.5 [facility] Comment on above: Performed By: #### 2 38524 #### [facility],[address] [place] [address] 86920 RBC 4.47 x 10EE6/UL Normal 4.10 - 5.30 [facility] Comment on above: Performed By: #### 2 84143 #### [facility],[address] [place] [address] 67648 WBC 5.7 x 10EE3/UL Normal 4.5 - 10.8 [facility] Comment on above: Performed By: #### 2 62629 #### [facility],[address] [place] [address] 35785 CMP with eGFRon 04-22-2025 AGE 69 years Normal [facility] Comment on above: Performed By: #### 2 58264 #### [facility],[address] [place] [address] 46385 Albumin [Mass/Vol] 3.4 g/dL Normal 3.4 - 5.0 [facility] Comment on above: Performed By: #### 2 58941 #### [facility],[address] [place] [address] 47788 Albumin/Globulin [Mass ratio] 1.1 {ratio} Normal 0.9 - 1.6 [facility] Comment on above: Performed By: #### 2 35484 #### [facility],[address] [place] [address] 86527 ALK PHOS 87 U/L Normal 46 - 116 [facility] Comment on above: Performed By: #### 2 24611 #### [facility],[address] [place] [address] 30803 ALT [Catalytic activity/Vol] 21 U/L Normal 16 - 63 [facility] Comment on above: Performed By: #### 2 54439 #### [facility],[address] [place] [address] 07606 Anion gap [Moles/Vol] 12 mmol/L Normal 10 - 20 [facility] Comment on above: Performed By: #### 2 82754 #### [facility],[address] [place] [address] 81539 AST [Catalytic activity/Vol] 13 U/L Normal 13 - 39 [facility] Comment on above: Performed By: #### 2 70427 #### [facility],[address] [place] [address] 17939 B/C RATIO 32 ratio High 0 - 30 [facility] Comment on above: Performed By: #### 2 48417 #### [facility],[address] [place] [address] 13096 Bilirubin [Mass/Vol] 0.5 mg/dL Normal 0.2 - 1.0 [facility] Comment on above: Performed By: #### 2 59544 #### [facility],[address] [place] [address] 48160 Calcium [Mass/Vol] 9.1 mg/dL Normal 8.5 - 10.1 [facility] Comment on above: Performed By: #### 2 39035 #### [facility],[address] [place] [address] 55420 Chloride [Moles/Vol] 109 mmol/L High 98 - 107 [facility] Comment on above: Performed By: #### 2 08025 #### [facility],[address] [place] [address] 95666 CMP with eGFR Normal [facility] Comment on above: Result Comment: COMP REHENSIVE METABOLIC PANEL Performed By: #### 2 01776 #### [facility],[address] [place] [address] 71405 CO2 [Moles/Vol] 28.2 mmol/L Normal 21.0 - 32.0 [facility] Comment on above: Performed By: #### 2 28249 #### [facility],[address] [place] [address] 96338 Creatinine [Mass/Vol] 0.73 mg/dL Normal 0.55 - 1.02 [facility] Comment on above: Performed By: #### 2 63320 #### [facility],[address] [place] [address] 43387 GFR/1.73 sq M.predicted among non-blacks MDRD (S/P/Bld) [Vol rate/Area] mL/min/{1.73_m2} Normal 60 - 999 [facility] Comment on above: Performed By: #### 2 35467 #### [facility],[address] [place] [address] 34718 Result Comment: ACCO RDING TO THE NATIONAL KIDNEY DISEASE EDUCATION PROGRAM(NKDE), A NORMAL eGFR IS A VALUE GREATER THAN OR EQUAL TO 60 ML/MIN/1.73 SQ METERS. CHRONIC KIDNEY DISEASE: <60mL/MIN/1.73 SQ METERS KIDNEY FAILURE: <15mL/MIN/1.73 SQ METERS THIS TEST SHOULD ONLY BE USED FOR PATIENTS 18 YEARS OF AGE AND OLDER. Globulin (S) [Mass/Vol] 3.0 g/dL Normal 1.5 - 3.8 [facility] Comment on above: Performed By: #### 2 85721 #### [address] [address] Glucose [Mass/Vol] 93 mg/dL Normal 74 - 106 [facility] Comment on above: Performed By: #### 2 86672 #### [address] [address] Potassium [Moles/Vol] 3.8 mmol/L Normal 3.5 - 5.1 [facility] Comment on above: Performed By: #### 2 57906 #### [address] [address]182 Protein [Mass/Vol] 6.4 g/dL Normal 6.4 - 8.2 [facility] Comment on above: Performed By: #### 2 96665 #### [facility],[address] [place] [address] 41077 Sodium [Moles/Vol] 145 mmol/L Normal 136 - 145 [facility] Comment on above: Performed By: #### 2 71316 #### [address] [address] Urea nitrogen [Mass/Vol] 23 mg/dL High 7 - 18 [facility] Comment on above: Performed By: #### 2 05872 #### [address] [address] LIPID PROFILEon 04-22-2025 Cholesterol [Mass/Vol] 251 mg/dL High 0 - 240 [facility] Comment on above: Performed By: #### 2 02956 #### [facility],[address] [place] [address] 25410 Cholesterol in HDL [Mass/Vol] 62 mg/dL High 40 - 60 [facility] Comment on above: Performed By: #### 2 89006 #### [facility],[address] [place] [address] 07309 Cholesterol in LDL [Mass/Vol] 172 mg/dL High 0 - 129 [facility] Comment on above: Performed By: #### 2 55962 #### [facility],[address] [place] [address] 09934 Cholesterol.total/Cho lesterol in HDL [Mass ratio] 4.0 {ratio} Normal 0.0 - 5.0 [facility] Comment on above: Performed By: #### 2 28857 #### [facility],[address] [place] [address] 60537 Lipid 1996 panel Normal [facility] Comment on above: Result Comment: LIPI D PROFILE Performed By: #### 2 52684 #### [facility],[address] [place] [address] 54621 Triglyceride [Mass/Vol] 87 mg/dL Normal 0 - 150 [facility] Comment on above: Performed By: #### 2 35730 #### [facility],[address] [place] [address] 28342 3D MAMM BILAT SCREENon 03-29 3D MAMM BILAT SCREEN [place] [address] Patient: ASHLEY TUTTLE Phone#: : 1955 Age: 69 Gender: F Pt. Type: Out Account: [id number] Location: [facility] Ordering: LD MON Exam Date: 03/29/2025/14:45 Family Phys: Charge Code: [id number] Physician: Schleicher Order #: [id number] Dose#: PROCEDURE: BILATERAL SCREENING BREAST TOMOSYNTHESIS MAMMOGRAM WITH CAD COMPARISON: [facility], 3D BILAT SCREEN, 02/01/2023, 13:56. [facility], 3D BILAT SCREEN, 03/12/2024, 14:08. INDICATIONS: Screening. [...] Swift MD on 03/29/2025 at 15:04 Normal [facility] Non-Joint Finisher Cytology Reporton Non-Joint Finisher Cytology Report . Pathology Reports Accession: Collected Date/Time: Received Date/Time: Pathologist: [id number] 03/27/2025 08:55 EDT 03/28/2025 08:59 EDT MD KENDALL ROBERT Non-Joint Finisher Cytology Report CLINICAL INFORMATION: nontoxic single thyroid nodule [id number] DIAGNOSTIC CATEGORY: ATYPIA OF UNDETERMINED SIGNIFICANCE Per Debbie Cytology protocol, this specimen has been sent for [employer] Medical Referral Coordinator test. Results to follow in about 2 weeks. SPECIMEN: Right thyroid FNA GROSS DESCRIPTION: # of Monolayers: 1 Volume (ml) 30 Color: fixed clear pink needle rinse in CytoLyt Afirma sample collected for reflex testing SUGGESTION/EDUCATIONAL NOTES: This specimen was evaluated using criteria described in The [place] System for Reporting Thyroid Cytopathology, Second Edition [...] lobectomy Verified by Pathology Report verified by [facility] Screened by: EGETHA Electronically signed by ROBERT ARGUETA MD Sign-Out Date: 03/29/2025 10:45 Performing Lab: [facility], [address] [place] [address] Pathology Dept Disclaimer If ancillary studies were utilized, the following Laboratory Developed Test (LDT) disclaimer will apply: Pathology Reports Accession: Collected Date/Time: Received Date/Time: Pathologist: [id number] 03/27/2025 08:55 EDT 03/28/2025 08:59 EDT MD ROBERT ARGUETA Disclaimer Under CLIA requirements, [facility] is qualified to perform high complexity testing. For all ancillary stains, positive and negative controls stain appropriately. Performance characteristics of immunohistochemical and chromogenic in-situ hybridization tests have been determined by [facility]. These tests are used for clinical purposes, They should not be regarded as investigational or for research. Normal [facility] FINE NEEDLE ASPIR W/ US GUID E 1ST LESIONon 03-27-2025 FINE NEEDLE ASPIR W/ US GUIDE 1ST LESION [place] [address] Patient: ASHLEY TUTTLE Phone#: : 1955 Age: 69 Gender: F Pt. Type: Out Account: [id number] Location: [facility] Ordering: ALEXANDER AREVALO Exam Date: 03/27/2025/12:56 Family Phys: LD MON Charge Code: [id number] Physician: Schleicher Order #: [id number] Dose#: This report includes an Addendum and [...] Shruti Cobos MD on 04/08/2025 at 16:36 [facility] THYROIDon 02-20-2025 [place] [address] Patient: ASHLEY TUTTLE Phone#: : 1955 Age: 69 Gender: F Pt. Type: Out Account: [id number] Location: 052 Ordering: ALEXANDER AREVALO Exam Date: 02/20/2025/12:50 Family Phys: LD MON Charge Code: [id number] Physician: Schleicher Order #: [id number] Dose#: PROCEDURE: THYROID ULTRASOUND COMPARISON: None. INDICATIONS: [...] Cobos MD on 02/20/2025 at 14:10 Normal [facility] CBC + DIFFon 02-07-2025 Baso # 0.02 x10EE3/UL Normal 0.00 - 0.10 [facility] Comment on above: Performed By: #### 2 22920 #### [facility],[address] [place] [address] Basophils/100 WBC (Bld) 0.3 % Normal 0.0 - 2.0 [facility] Comment on above: Performed By: #### 2 59775 #### [facility],[address] [place] [address] CBC + DIFF Normal [facility] Comment on above: Result Comment: CBC- COMPLETE BLOOD COUNT Performed By: #### 2 15606 #### [facility],[address] [place] [address] EO # 0.10 x10EE3/UL Normal 0.00 - 0.50 [facility] Comment on above: Performed By: #### 2 62130 #### [facility],[address] [place] [address] 65337 Eosinophils/100 WBC (Bld) 1.4 % Normal 0.0 - 7.0 [facility] Comment on above: Performed By: #### 2 98807 #### [facility],[address] [place] [address] Erythrocyte distribution width (RBC) [Ratio] 13.4 % Normal 12.0 - 15.6 [facility] Comment on above: Performed By: #### 2 55346 #### [facility],[address] [place] [address] Hematocrit (Bld) [Volume fraction] 40.5 % Normal 34.0 - 46.0 [facility] Comment on above: Performed By: #### 2 07382 #### [facility],[address] [place] [address] Hemoglobin (Bld) [Mass/Vol] 13.7 g/dL Normal 12.0 - 16.0 [facility] Comment on above: Performed By: #### 2 95746 #### [facility],[address] [place] [address] Lymph # 0.53 x10EE3/UL Low 0.80 - 2.80 [facility] Comment on above: Performed By: #### 2 67637 #### [facility],[address] [place], [place] [address] Lymphocytes/100 WBC (Bld) 7.7 % Low 20.0 - 45.0 [facility] Comment on above: Performed By: #### 2 22374 #### [facility],[address] [place], [place] [address] MANUAL DIFF N/A Normal [facility] Comment on above: Performed By: #### 2 48970 #### [facility],[address] [place], [place] [address] MCH (RBC) [Entitic mass] 29 pg Normal 27 - 33 [facility] Comment on above: Performed By: #### 2 61486 #### [facility],[address] [place] [address] 95392 MCHC 34 X10 3 Normal 32 - 36 [facility] Comment on above: Performed By: #### 2 11682 #### [facility],[address] [place] [address] 27588 MCV (RBC) [Entitic vol] 87 fL Normal 80 - 99 [facility] Comment on above: Performed By: #### 2 06132 #### [facility],[address] [place] [address] 68716 [place] # 0.39 x10EE3/UL Normal 0.20 - 1.00 [facility] Comment on above: Performed By: #### 2 69526 #### [facility],[address] [place] [address] 10000 MONOS % 5.6 % Normal 0.0 - 10.0 [facility] Comment on above: Performed By: #### 2 84132 #### [facility],[address] [place] [address] 80757 Morphology Chris (Bld) [Interp] N/A Normal [facility] Comment on above: Performed By: #### 2 25927 #### [facility],[address] [place] [address] 63778 Neut # 5.86 x10EE3/UL Normal 1.50 - 7.10 [facility] Comment on above: Performed By: #### 2 05691 #### [facility],[address] [place] [address] 46347 Neutrophils/100 WBC (Bld) 85.0 % High 46.0 - 76.0 [facility] Comment on above: Performed By: #### 2 49172 #### [facility],[address] [place] [address] 77460 PLATELET 177 x10EE3/UL Normal 150 - 450 [facility] Comment on above: Performed By: #### 2 35740 #### [facility],[address] [place] [address] 34424 Platelet mean volume (Bld) [Entitic vol] 7.2 fL Normal 6.6 - 10.5 [facility] Comment on above: Result Comment: AUTO MATED DIFFERENTIAL Performed By: #### 2 59963 #### [facility],[address] [place] [address] 17113 RBC 4.67 x 10EE6/UL Normal 4.10 - 5.30 [facility] Comment on above: Performed By: #### 2 73469 #### [facility],[address] [place] [address] 44696 WBC 6.9 x 10EE3/UL Normal 4.5 - 10.8 [facility] Comment on above: Performed By: #### 2 67193 #### [facility],[address] [place] [address] 64667 CMP with eGFRon 02-07-2025 AGE 69 years Normal [facility] Comment on above: Performed By: #### 2 15485 #### [facility],[address] [place] [address] 74884 Albumin [Mass/Vol] 3.4 g/dL Normal 3.4 - 5.0 [facility] Comment on above: Performed By: #### 2 06552 #### [facility],[address] [place] [address] 29629 Albumin/Globulin [Mass ratio] 1.0 {ratio} Normal 0.9 - 1.6 [facility] Comment on above: Performed By: #### 2 84325 #### [facility],[address] [place] [address] 87059 ALK PHOS 92 U/L Normal 46 - 116 [facility] Comment on above: Performed By: #### 2 50365 #### [facility],[address] [place] [address] 35598 ALT [Catalytic activity/Vol] 21 U/L Normal 16 - 63 [facility] Comment on above: Performed By: #### 2 67955 #### [facility],[address] [place] [address] 73619 Anion gap [Moles/Vol] 12 mmol/L Normal 10 - 20 [facility] Comment on above: Performed By: #### 2 05891 #### [facility],[address] [place] [address] 42012 AST [Catalytic activity/Vol] 11 U/L Low 13 - 39 [facility] Comment on above: Performed By: #### 2 85566 #### [facility],[address] [place] [address] 01429 B/C RATIO 31 ratio High 0 - 30 [facility] Comment on above: Performed By: #### 2 49881 #### [facility],[address] [place] [address] 17491 Bilirubin [Mass/Vol] 0.7 mg/dL Normal 0.2 - 1.0 [facility] Comment on above: Performed By: #### 2 93827 #### [facility],[address] [place] [address] 56708 Calcium [Mass/Vol] 8.5 mg/dL Normal 8.5 - 10.1 [facility] Comment on above: Performed By: #### 2 54174 #### [facility],[address] [place] [address] 91531 Chloride [Moles/Vol] 104 mmol/L Normal 98 - 107 [facility] Comment on above: Performed By: #### 2 55145 #### [facility],[address] [place] [address] 19679 CMP with eGFR Normal [facility] Comment on above: Result Comment: COMP REHENSIVE METABOLIC PANEL Performed By: #### 2 26985 #### [facility],[address] [place] [address] 95306 CO2 [Moles/Vol] 25.2 mmol/L Normal 21.0 - 32.0 [facility] Comment on above: Performed By: #### 2 76181 #### [facility],[address] [place] [address] 88174 Creatinine [Mass/Vol] 0.81 mg/dL Normal 0.55 - 1.02 [facility] Comment on above: Performed By: #### 2 36788 #### [facility],[address] [place] [address] GFR/1.73 sq M.predicted among non-blacks MDRD (S/P/Bld) [Vol rate/Area] mL/min/{1.73_m2} Normal 60 - 999 [facility] Comment on above: Performed By: #### 2 89320 #### [facility],[address] [place] [address] Result Comment: ACCO RDING TO THE NATIONAL KIDNEY DISEASE EDUCATION PROGRAM(NKDE), A NORMAL eGFR IS A VALUE GREATER THAN OR EQUAL TO 60 ML/MIN/1.73 SQ METERS. CHRONIC KIDNEY DISEASE: <60mL/MIN/1.73 SQ METERS KIDNEY FAILURE: <15mL/MIN/1.73 SQ METERS THIS TEST SHOULD ONLY BE USED FOR PATIENTS 18 YEARS OF AGE AND OLDER. Globulin (S) [Mass/Vol] 3.3 g/dL Normal 1.5 - 3.8 [facility] Comment on above: Performed By: #### 2 90535 #### [facility],[address] [place] [address] 85393 Glucose [Mass/Vol] 111 mg/dL High 74 - 106 [facility] Comment on above: Performed By: #### 2 61576 #### [facility],[address] [place] [address] 09448 Potassium [Moles/Vol] 3.9 mmol/L Normal 3.5 - 5.1 [facility] Comment on above: Performed By: #### 2 60879 #### [address] [address] Protein [Mass/Vol] 6.7 g/dL Normal 6.4 - 8.2 [facility] Comment on above: Performed By: #### 2 24217 #### [facility],[address] [place], [place] [address] Sodium [Moles/Vol] 137 mmol/L Normal 136 - 145 [facility] Comment on above: Performed By: #### 2 27585 #### [facility],[address] [place] [address] Urea nitrogen [Mass/Vol] 25 mg/dL High 7 - 18 [facility] Comment on above: Performed By: #### 2 11484 #### [facility],[address] [place], [place] [address] CORONAVIRUS (SARS) ANTIGEN T ESTon 02-07-2025 EXTERNAL QC DONE? YES Normal [facility] Comment on above: Performed By: #### 2 62266 #### [facility],[address] [place] [address] INTERNAL CONTROL PASS Normal [facility] Comment on above: Performed By: #### 2 80070 #### [facility],[address] [place], [place] [address] SARS ANTIGEN Negative Normal NORMAL: NEGATIVE [facility] Comment on above: Performed By: #### 2 59014 #### [facility],[address] [place], [place] [address] SEND TO ? NO Normal [facility] Comment on above: Result Comment: SARS -CoV-2 THIS TEST IS BEING USED UNDER THE FDA EUA PROCEDURE. THIS ASSAY HAS BEEN VALIDATED AT [facility] FOR USE WITH NASAL AND NASOPHARYNGEAL SWAB [...] PUBLIC HEALTH AUTHORITIES. Performed By: #### 2 57191 #### [place] [address] CT CHEST (PE PROTOCOL)on CT CHEST (PE PROTOCOL) [place] [address] Patient: ASHLEY TUTTLE Phone#: : 1955 Age: 69 Gender: F Pt. Type: ER Account: [id number] Location: [facility] Ordering: CHONG ANDRES Exam Date: 02/07/2025/9:13 Family Phys: LD MON Charge Code: [id number] Physician: Schleicher Order #: [id number] Dose#: 8.90 PROCEDURE: CT CHEST WITH CONTRAST FOR PE COMPARISON: [facility], CT, CHEST PE W CON, 07/29/2023, 6:55. [...] 69 Gender: F Pt. Type: ER Account: [id number] Location: [facility] Ordering: CHONG ANDRES Exam Date: 02/07/2025/9:13 Family Phys: LD MON Charge Code: [id number] Physician: Schleicher Order #: [id number] Dose#: 8.90 2. Enlarged heterogeneous right lobe of the thyroid, suspect large underlying nodule. Recommend dedicated thyroid ultrasound for further characterization. Dictated by: Shruti Cobos MD on 02/07/2025 at 9:53 Approved by: Shruti Cobos MD on 02/07/2025 at 10:00 Normal [facility] D-DIMER, QUANTITATIVEon 04-0 D-DIMER QUANT 267 ng/ml High 0 - 230 [facility] Comment on above: Performed By: #### 2 44106 #### [facility],[address] [place], [place] [address] D-DIMER, QUANTITATIVE Normal Ziggy trina [facility] Comment on above: Result Comment: CECI Mcneil D-DIMER Performed By: #### 2 58794 #### Laurent [facility],[address] [place] [address] 18756 ED MED ADMINISTRATION DETAIL on 02-07-2025 ED MED ADMINISTRATION DETAIL [employer] Medication Administration Record [address] [place], [place] [address] [id number] 02/07/2025 Patient: ASHLEY TUTTLE Sex: Female : [...] 08:51 Aj Griffith, 3 mL (NOW x1) Aj Griffith, R.R.T. R.R.T. Not Scanned CefTRIAXone 09:38 04 CefTRIAXone (Rocephin) IVPB 2gm/50ml NS 2 g [...] amount infused: 50 mL. - 10:28 Rob Rodrigez R.N. 1 of 2 [employer] Medication Ordered Medication Administration Date/Time MethylPREDNISolo 09:35 02/07 MethylPREDNISolone Sodium Succ (Solu-Medrol) IVP Given ne Sodium Succ 125 mg given via Site# 1. Allergies verified and confirmed 5 rights. 09:35 02/07/2025 (Solu-Medrol) IVP IV patency established. IV site checked: no pain, redness, or Rob Rodrigez R.N. 125 mg (NOW x1) swelling. IV flushed thoroughly pre-medication administration. IVP Scanned given by nurse. Information reviewed with patient including reason for taking this medication, signs of allergic reaction and precautions. Verbalizes understanding. - 09:38 Rob Rodrigez R.N. 2 of 2 Normal [facility] ED NURSES CLINICAL NOTEon ED NURSES CLINICAL NOTE Nurse Narrative Nurse Clinical Narrative [address] [place] [address] [id number] 02/07/2025 07:11:00 Patient: ASHLEY TUTTLE Sex: Female : 1955 Age: 69y Disposition: Discharge to Home Disposition Decision Time: 10:02/07/2025 Departure Time: 10:02/07/2025 TRIAGE Arrived by private vehicle. Historian: (patient). Unaccompanied. Primary physician (Elieser). Triage time: 07:02/07/2025. Acuity: LEVEL 3. Chief Complaint: COUGH. Onset. (4 days). The patient has had difficulty breathing. SEPSIS SCREEN: NEGATIVE. SIRS criteria negative. No possible sources of infection. -- 07:33 02/07/25 DIPESHT Brock Aldana R.N. 07:33 02/07/25. BP: 212/94 MAP: 133. HR: 62. RR: 18. O2 saturation: 92% Temperature: 99.7 F. Pain level now 0/10. -- 07:33 02/07/25 DIPESHT Brock Aldana R.N. Measurements: 07:32 02/07/25 Wt: 95.3 kg, Ht/Tommy: 63.0 in, BMI: [...] disease exposure. ABUSE ASSESSMENT: The patient answered "yes" to the question(s) "Do you feel safe in your home?" and "no" to the question(s) "Are you afraid to go home?". SELF HARM ASSESSMENT: Self harm assessment was performed. The patient answered "no" to the question(s) "Have you recently felt down, depressed, or hopeless?" and "Do you have thoughts of harming or killing yourself?". -- 07:33 02/07/25 GENEVA Aldana R.N. 07:02/07/25. FALL RISK ASSESSMENT: Fall risk assessment completed. Risk factors identified include patient age greater than 65 years. -- 07:35 02/07/25 GENEVA Aldana R.N. Interventions 07:02/07/25. Identification band on patient. Advanced care plan discussed with patient (full code). -- 07:02/07/25 GENEVA Aldana R.N. PHYSICAL ASSESSMENT 2 of 4 [...] dry. Normal skin turgor. -- 08:16 02/07/25 EDT Brock Aldana R.N. NURSING PROGRESS NOTES 07:50 [...] arriving to the ED.). -- 09:02 02/07/25 EDT Rob Rodrigez R.N. 08:51 02/07/25. Albuterol-Ipratropium (DuoNeb) 3mg/0.5mg Neb Tx 3 mL given. Given by the respiratory therapist. Allergies verified and confirmed 5 rights. Information reviewed with patient. -- 08:51 02/07/25 EDT Aj Griffith R.R.T. 09:08 02/07/25. Patient transported to [place]. -- 09:09 02/07/25 EDT Rob Rodrigez R.N. [...] Verbalizes understanding. -- 09:38 02/07/25 EDT Rob Rodrigez, R.N. 09:38 02/07/25. CefTRIAXone (Rocephin) IVPB 2gm/50ml NS 2 g started at 100 mL/hr diluted in sodium chloride IVPB 0.9 % Minibag+ 50 mL via Site# 1. Allergies verified and confirmed 5 rights. IV patency established. IV site checked: no pain, redness, or swelling. IV flushed thoroughly pre-medication administration. Information reviewed with p (more content not included)... Normal [facility] ED ORDER SHEET (CPOE ONLY)on 02-07-2025 ED ORDER SHEET (CPOE ONLY) Order Sheet Order Sheet [address] [place] [address] [id number] 02/07/2025 Patient: ASHLEY TUTTLE Sex: Female : 1955 Age: 69y MEASUREMENTS: Wt: 95.3 kg, Ht/Tommy: 63.0 in, BMI: 37.20 ALLERGIES: No known drug allergies MEDICATION/IV/DRIP/FLU ID ORDERS Order Description Priority Entered Acknowledged Completed Albuterol-Ipratropium (DuoNeb) 07:41 02/07/2025 08:41 08:51 3mg/0.5mg Neb Tx3 mL (NOW Zev Huggins, 02/07/2025 02/07/2025 x1) DAj Arvizu R.R.T. R.R.T. CefTRIAXone (Rocephin) IVPB 09:19 02/07/2025 09:21 09:39 2gm/50ml NS2 g diluted in Chong Andres D.O. 02/07/2025 02/07/2025 sodium chloride IVPB 0.9 % Rob Uribe, Minibag+ 50 mL at 100 mL/hr R.N. R.N. (NOW x1) MethylPREDNISolone Sodium 09:19 02/07/2025 09:21 09:38 Succ (Solu-Medrol) MOX745 mg Chong Andres D.O. 02/07/2025 02/07/2025 (NOW x1) Rob Uribe R.N. R.N. LAB ORDERS Order Description Priority Entered Acknowledged Collected Completed CBC w Diff Stat Stat 07:41 02/07/2025 07:59 02/07/2025 08:47 02/07/2025 Rob Hubbard Lucas Eastep, 1 of 3 Order Sheet D.O. R.N. R.N. CMP Stat Stat 07:41 02/07/2025 07:59 [...] Stat Rob Hubbard Lucas Eastep, D.O. R.N. R.NIrma Rapid COVID (SARS) Stat 07:41 02/07/2025 07:59 02/07/2025 08:48 02/07/2025 ANTIGEN TEST Stat Rob Hubbard Lucas Eastep, D.O. R.N. R.NIrma D-Dimer Stat Stat 08:39 02/07/2025 08:47 02/07/2025 08:47 02/07/2025 Lola Shelley Lucas Eastep, R.NIrma RSerg DIAGNOSTIC STUDY ORDERS 2 of 3 Order Sheet Order Description Priority Entered Acknowledged Completed CT Chest PE Study Stat Stat 08:59 02/07/2025 09:01 09:01 Chong Andres D.O. 02/07/2025 02/07/2025 Rob Uribe R.N. RSerg Order Comments: 08:59 02/07/2025: Status: Not . Chong Andres D.O. Reason for Study: Pulmonary Disease STAFF ORDERS Order Description Priority Entered Acknowledged Collected Completed IV Saline Lock 07:41 02/07/2025 07:59 02/07/2025 08:47 02/07/2025 Rob Hubbard Lucas Eastep, D.O. R.N. RSerg [Electronically signed by Zev Huggins D.O. (02/07/2025 14:07 EDT)] 3 of 3 Normal [facility] ED PHYSICIAN CLINICAL REPORT on 02-07-2025 ED PHYSICIAN CLINICAL REPORT Narrative Physician Clinical Narrative [address] [address] [id number] 02/07/2025 07:11:00 Patient: ASHLEY TUTTLE Sex: Female [...] 1.50 - 7.10 Final EDT 02/07/2025 08:10 [place] # 0.39 x10/UL 0.20 - 1.00 Final [...] mg/dl 0. (more content not included)... Normal [facility] ED SUPER BILLon 02-07-2025 ED SUPER BILL [address] [address] [id number] 02/07/2025 Patient: ASHLEY TUTTLE Sex: Female : 1955 Age: 69y Facility Professional Category Item Description Code Code Quantity Fee Total Nurse/E/M EMERGENCY 970932 1 $0.00 $0.00 DEPT VISIT HIGH SEVERITYFUNCJ (43571-79) Nurse/IV/IM/Infusions Drip/IVPB initial 051075 1 $0.00 $0.00 (58898) Nurse/IV/IM/Infusions IVP additional 819179 1 $0.00 $0.00 push (84860) Nurse/Procedures Respiratory 957275 1 $0.00 $0.00 therapy - inhalation (85538) Grand $0.00 Total Providers Zev Huggins D.O. Chief Complaint DYSPNEA. 1 of 2 [facility] Principal Diagnosis Acute dyspnea. Bronchopneumonia. thyroid nodule needs an ultrasound and probable biopsy. ICD-10 Codes J18.0: Bronchopneumonia, unspecified organism R06.09: Other forms of dyspnea 2 of 2 Normal [facility] ED VISIT SUMMARYon ED VISIT SUMMARY Visit Overview Visit Overview [address] [address] [id number] 02/07/2025 Patient: ASHLEY TUTTLE Sex: Female : 1955 Age: 69y 02/07/2025 02:42 PM EDT ED Arrival:07:11 02/07/2025 EDT Status:not Recent Travel:no Language:eng Adv Directive: Isolation Status: Ethnicity:N Fall Risk:risk Infectious Disease Exposure:no Measurements:5'3" / 160.0 Self-Harm Status:risk Sepsis Screen:negative cm [...] diluted in sodium chloride IVPB 0.9 09:38 02/07/25 % Minibag+ 50 mL 100 mL/hr IV [...] Vitals Temp 07:33 02/07/25 99.7 F Temp 10:21 02/07/25 BP 07:33 02/07/25 212/94 BP 10:21 02/07/25 HR 07:33 02/07/25 62 HR 10:21 02/07/25 72 RR 07:33 02/07/25 18 RR 10:21 02/07/25 2 of 3 Visit Overview First Vitals Last Vitals O2 Sat 07:33 02/07/25 92% O2 Sat 10:21 02/07/25 92% Pain 07:33 02/07/25 0 Pain 10:21 02/07/25 ETCO2 07:33 02/07/25 ETCO2 10:21 02/07/25 GCS 07:33 02/07/25 GCS 10:21 02/07/25 RTS 07:33 02/07/25 RTS 10:21 02/07/25 PROCEDURES NURSING INTERVENTIONS Respiratory therapy LABS / STUDIES LABS / STUDIES ORDERED BNP CBC w Diff CMP CT Chest PE Study D-Dimer EKG - ED Flu Swab (Influenzae AAg) Rapid COVID (SARS) ANTIGEN TEST Troponin-I CLINICAL IMPRESSION ACUTE DYSPNEA BRONCHOPNEUMONIA 3 of 3 Normal [facility] ED VITALS FLOW SHEETon 02-07 ED VITALS FLOW SHEET Vitals Vital Sign Flow Sheet [address] [address] [id number] 02/07/2025 Patient: ASHLEY TUTTLE Sex: Female : [...] 99.7 F 0 3 of 3 Normal [facility] INFLUENZA VIRUS RAPID A/Bon 02-07-2025 INFLUENZA VIRUS [...] TO THREE DAYS. RESULT CRITICAL? NO Normal [facility] Comment on above: Performed By: #### 2 00913 #### [facility],[address] [place] [address] NT-proBNPon 02-07-2025 Natriuretic peptide B (Bld) [Mass/Vol] 304 pg/mL High 0 - 125 [facility] Comment on above: Performed By: #### 2 70353 #### [facility],[address] [place] [address] TROPONINon 02-07-2025 HS TROPONIN 4.0 pg/mL Normal 0.0 - 51.4 [facility] Comment on above: Performed By: #### 2 03805 #### [facility],[address] [place], [place] [id number] CBC (NO DIFF)on 10-08-2024 CBC panel Auto (Bld) Normal [facility] Comment on above: Result Comment: CBC( WITHOUT DIFFERENTIAL) Performed By: #### 2 53297 #### [facility],[address] [place] [address] Erythrocyte distribution width (RBC) [Ratio] 13.6 % Normal 12.0 - 15.6 [facility] Comment on above: Performed By: #### 2 91576 #### [facility],[address] [place] [address] Hematocrit (Bld) [Volume fraction] 41.3 % Normal 34.0 - 46.0 [facility] Comment on above: Performed By: #### 2 98905 #### [facility],[address] [place] [address] Hemoglobin (Bld) [Mass/Vol] 13.8 g/dL Normal 12.0 - 16.0 [facility] Comment on above: Performed By: #### 2 29818 #### [facility],[address] [place] [address] 22892 MCH (RBC) [Entitic mass] 29 pg Normal 27 - 33 [facility] Comment on above: Performed By: #### 2 40890 #### [facility],[address] [place] [address]1541 MCHC 34 X10 3 Normal 32 - 36 [facility] Comment on above: Performed By: #### 2 20443 #### [facility],[address] [place] [address] 32949 MCV (RBC) [Entitic vol] 87 fL Normal 80 - 99 [facility] Comment on above: Performed By: #### 2 22410 #### [facility],[address] [place] [address] 73046 PLATELET 279 x10EE3/UL Normal 150 - 450 [facility] Comment on above: Performed By: #### 2 27835 #### [facility],[address] [place] [address] 11529 Platelet mean volume (Bld) [Entitic vol] 7.4 fL Normal 6.6 - 10.5 [facility] Comment on above: Performed By: #### 2 79233 #### [facility],[address] [place] [address] 59217 RBC 4.77 x 10EE6/UL Normal 4.10 - 5.30 [facility] Comment on above: Performed By: #### 2 41730 #### [facility],[address] [place] [address] 10552 WBC 6.9 x 10EE3/UL Normal 4.5 - 10.8 [facility] Comment on above: Performed By: #### 2 25901 #### [facility],[address] [place] [address] CMP with eGFRon 10-08-2024 AGE 69 years Normal [facility] Comment on above: Performed By: #### 2 44877 #### [facility],[address] [place] [address] 40202 Albumin [Mass/Vol] 3.4 g/dL Normal 3.4 - 5.0 [facility] Comment on above: Performed By: #### 2 60352 #### [facility],[address] [place] [address] 01220 Albumin/Globulin [Mass ratio] 1.0 {ratio} Normal 0.9 - 1.6 [facility] Comment on above: Performed By: #### 2 44980 #### [facility],[address] [place] [address] 32164 ALK PHOS 94 U/L Normal 46 - 116 [facility] Comment on above: Performed By: #### 2 13810 #### [facility],[address] [place] [address] 00514 ALT [Catalytic activity/Vol] 21 U/L Normal 16 - 63 [facility] Comment on above: Performed By: #### 2 34049 #### [facility],[address] [place] [address] 96028 Anion gap [Moles/Vol] 14 mmol/L Normal 10 - 20 [facility] Comment on above: Performed By: #### 2 92128 #### [facility],[address] [place] [address] 09015 AST [Catalytic activity/Vol] 14 U/L Normal 13 - 39 [facility] Comment on above: Performed By: #### 2 61175 #### [facility],[address] [place] [address] 84385 B/C RATIO 21 ratio Normal 0 - 30 [facility] Comment on above: Performed By: #### 2 54743 #### [facility],[address] [place] [address]47 Bilirubin [Mass/Vol] 0.6 mg/dL Normal 0.2 - 1.0 [facility] Comment on above: Performed By: #### 2 35624 #### [facility],[address] [place] [address] 70121 Calcium [Mass/Vol] 9.2 mg/dL Normal 8.5 - 10.1 [facility] Comment on above: Performed By: #### 2 67846 #### [facility],[address] [place] [address] 52794 Chloride [Moles/Vol] 106 mmol/L Normal 98 - 107 [facility] Comment on above: Performed By: #### 2 16402 #### [facility],[address] [place], [place] [address] CMP with eGFR Normal [facility] Comment on above: Result Comment: COMP REHENSIVE METABOLIC PANEL Performed By: #### 2 30964 #### [facility],[address] [place] [address] 10413 CO2 [Moles/Vol] 26.8 mmol/L Normal 21.0 - 32.0 [facility] Comment on above: Performed By: #### 2 87514 #### [facility],[address] [place] [address] 66858 Creatinine [Mass/Vol] 0.82 mg/dL Normal 0.55 - 1.02 [facility] Comment on above: Performed By: #### 2 87942 #### [facility],[address] [place] [address]134 GFR/1.73 sq M.predicted among non-blacks MDRD (S/P/Bld) [Vol rate/Area] mL/min/{1.73_m2} Normal 60 - 999 [facility] Comment on above: Performed By: #### 2 79047 #### [facility],[address] [place] [address] Result Comment: ACCO RDING TO THE NATIONAL KIDNEY DISEASE EDUCATION PROGRAM(NKDE), A NORMAL eGFR IS A VALUE GREATER THAN OR EQUAL TO 60 ML/MIN/1.73 SQ METERS. CHRONIC KIDNEY DISEASE: <60mL/MIN/1.73 SQ METERS KIDNEY FAILURE: <15mL/MIN/1.73 SQ METERS THIS TEST SHOULD ONLY BE USED FOR PATIENTS 18 YEARS OF AGE AND OLDER. Globulin (S) [Mass/Vol] 3.3 g/dL Normal 1.5 - 3.8 [facility] Comment on above: Performed By: #### 2 32206 #### [place] [address] Glucose [Mass/Vol] 110 mg/dL High 74 - 106 [facility] Comment on above: Performed By: #### 2 70097 #### [place] [address] Potassium [Moles/Vol] 3.5 mmol/L Normal 3.5 - 5.1 [facility] Comment on above: Performed By: #### 2 06910 #### [place] [address] Protein [Mass/Vol] 6.7 g/dL Normal 6.4 - 8.2 [facility] Comment on above: Performed By: #### 2 27911 #### [facility],[address] [place] [address]47[address] Sodium [Moles/Vol] 143 mmol/L Normal 136 - 145 [facility] Comment on above: Performed By: #### 2 90543 #### [address] [address] Urea nitrogen [Mass/Vol] 17 mg/dL Normal 7 - 18 [facility] Comment on above: Performed By: #### 2 41763 #### [address] [address] HEMOGLOBIN A1C (POM)on 10-08 Glucose [Mass/Vol] 102.5 mg/dL High 0.0 - 0.0 [facility] Comment on above: Result Comment: BLDo HEMOGLOBIN A1C REFERENCE RANGESBLDo Suggested Diagnosis HbA1c(%) HbA1C (mmol/mol Diabetic >/=6.5 >/=48 Prediabetes 5.7 - 6.4 39 - 47 Normal <5.7 <39 Performed By: #### 2 55282 #### [facility],[address] [place], [place] [address] HbA1c (Bld) [Mass fraction] 5.2 % Normal 0.0 - 6.5 [facility] Comment on above: Performed By: #### 2 46613 #### [facility],[address] [place] [address] 290[address] LIPID PROFILEon 10-08-2024 Cholesterol [Mass/Vol] 244 mg/dL High 0 - 240 [facility] Comment on above: Performed By: #### 2 11428 #### [facility],[address] [place] [address] 78089 Cholesterol in HDL [Mass/Vol] 57 mg/dL Normal 40 - 60 [facility] Comment on above: Performed By: #### 2 24782 #### [facility],[address] [place] [address] 10576 Cholesterol in LDL [Mass/Vol] 158 mg/dL High 0 - 129 [facility] Comment on above: Performed By: #### 2 10319 #### [facility],[address] [place] [address] 42533 Cholesterol.total/Cho lesterol in HDL [Mass ratio] 4.3 {ratio} Normal 0.0 - 5.0 [facility] Comment on above: Performed By: #### 2 08240 #### [facility],[address] [place] [address] 09536 Lipid 1996 panel Normal [facility] Comment on above: Result Comment: LIPI D PROFILE Performed By: #### 2 63426 #### [facility],[address] [place] [address] 64432 Triglyceride [Mass/Vol] 143 mg/dL Normal 0 - 150 [facility] Comment on above: Performed By: #### 2 49795 #### [facility],[address] [place] [address] 50167 TSHon 10-08-2024 TSH Qn 2.41 m[IU]/L Normal 0.35 - 3.74 [facility] Comment on above: Performed By: #### 2 51708 #### [facility],[address] [place] [address] 99523 URINALYSISon 10-08-2024 Bilirubin Ql (U) Negative Normal NORMAL: NEGATIVE [facility] Comment on above: Performed By: #### 2 50055 #### [facility],[address] [place] [address] 60293 Clarity (U) clear Normal NORMAL: CLEAR [facility] Comment on above: Performed By: #### 2 98222 #### [facility],[address] [place] [address] 76047 Color (U) yellow Normal NORMAL: YELLOW [facility] Comment on above: Performed By: #### 2 88068 #### [facility],[address] [place] [address] 61416 Glucose Ql (U) NORM Normal NORMAL: NORMAL [facility] Comment on above: Performed By: #### 2 08283 #### [facility],[address] [place] [address] 88889 Hemoglobin Ql (U) Negative Normal NORMAL: NEGATIVE [facility] Comment on above: Performed By: #### 2 36598 #### [facility],[address] [place] [address] 98465 Ketone Negative Normal NORMAL: NEGATIVE [facility] Comment on above: Performed By: #### 2 00960 #### [facility],[address] [place] [address] 12748 Leukocytes Negative Normal NORMAL: NEGATIVE [facility] Comment on above: Performed By: #### 2 76297 #### [facility],[address] [place], [place] [address] Nitrite Ql (U) Negative Normal NORMAL: NEGATIVE [facility] Comment on above: Performed By: #### 2 16340 #### [facility],[address] [place] [address] pH (U) 6 [pH] Normal NORMAL: 5.0-8.0 [facility] Comment on above: Performed By: #### 2 15215 #### [facility],[address] [place] [address] Protein Ql (U) Negative Normal NORMAL: NEGATIVE [facility] Comment on above: Performed By: #### 2 96607 #### [facility],[address] [place] [address] Sp [place] 1.015 Normal NORMAL: 1.010-1.030 [facility] Comment on above: Performed By: #### 2 21047 #### [facility],[address] [place] [address] Specimen Type R Normal [facility] Comment on above: Performed By: #### 2 09770 #### [facility],[address] [place], [place] [address] Urinalysis dipstick W Reflex Microscopic panel (U) NOT INDICATED Normal [facility] Comment on above: Performed By: #### 2 79527 #### [facility],[address] [place] [address] Urobilinog NORM Normal NORMAL: NORMAL [facility] Comment on above: Performed By: #### 2 28615 #### [facility],[address] [place], [place] [address] HbA1c (Bld)on 07-12-2023 Average glucose Estimated from glycated hemoglobin (Bld) [Mass/Vol] 105 mg/dL Normal [facility] Comment on above: Order Comment: Ruddy posadas Type: BLOOD SPECIMEN Ordering Facility: [facility] Address: [place] [address] Result Comment: eAG: (Estimated average glucose) is a calculated value from HgbA1c and is product support sales representative of the average blood glucose level in the last 2-3 month period. Performed By: #### 5 5454-3 #### [facility] CLIA [id number] [address] [place] [address] [place] HbA1c (Bld) [Mass fraction] 5.3 % Normal 4.3-5.6 [facility] Comment on above: Order Comment: Ruddy posadas Type: BLOOD SPECIMEN Ordering Facility: [facility] Address: [facility] [place] [address] Result Comment: Jcarlos [place] Diabetes Association guidelines indicate that patients with HgbA1c in the range 5.7-6.4% are at increased risk for development of diabetes, and intervention by lifestyle modification may be beneficial. HgbA1c greater or equal to 6.5% is considered diagnostic of diabetes. Performed By: #### 5 5454-3 #### [facility] CLIA [id number] [address] [place] [address] [place] BETAAon 04-28-2023 Beta-2 Glycoprotein Abs, IgA <10 Normal <=20 [facility] Comment on above: Result Comment: Perf ormed By: [employer] [address] [place] [id number] [employer] Layout Taper: Dontrell Arce MD, PhD Performed By: #### A PTT #### [address] [address] APCVon 04-27-2023 APC Factor V Resistance 2.9 ratio Normal [facility] ([place]) Comment on above: Result Comment: This APCV result demonstrates no Resistance to Activated Protein C. APC Factor V Resistance Reference Range: <= 2.3 Positive > 2.3 Negative Performed By: #### A PTT #### [address] [address] CIRANon 04-27-2023 Dil Deep Viper Venom 46.2 seconds High 30.0-42.0 [facility] ([place]) Comment on above: Result Comment: DRVV T Confirmation Test Performed: NEGATIVE Performed By: #### A PTT #### [address] [address] [place] Interpretation See Below Normal [facility] ([place]) Comment on above: Result Comment: No e vidence of lupus anticoagulant. Although results may represent valid findings for Lupus Anticoagulant, DRVVT results may be affected by presence of direct thrombin inhibitors, such as argatroban, dabigatran (Pradaxa) and Bivalirudin (Angiomax),and direct Xa inhibitors, such as rivaroxaban (Xarelto) and apixaban (Eliquis). Interpret Lupus Anticoagulant results with clinical correlation. Performed By: #### A PTT #### [place] [id number] Platelet neutraliz. Negative [facility] ([place]) Comment on above: Performed By: #### A PTT #### [place] [id number] PTGENon 04-27-2023 PT Gene Mut Prothrombin Gene Mutation Normal [facility] ([place]) Comment on above: Result Comment: Hebertzoila catherine Accession Number: [id number] Result: NORMAL Interpretation: The DNA sample is negative for the c.*97G>A variant (legacy name 38761X>A) in the 3' untranslated region of the Factor II (F2) gene. This result is not associated with an increased risk of thromboembolic disease. Thromboembolic disease is a multifactorial disorder and other causes are not excluded by this result. Methodology: Isolated Genomic DNA from the patient's blood specimen is evaluated for the c*97G>A ([id number]) variant of the F2 gene [RefSeq [id number];GRCh38/hg38] by multiplex polymerase chain reaction (PCR) followed by melting curve analysis. Limitations: This assay is designed to detect the c.*97G>A (57447P>A) variant in the F2 gene. Uncommon variants or single nucleotide polymorphisms may affect binding of probes and may rarely result in false negative, false positive or indeterminate results. This assay does not detect other disease-associated rare variants in F2 or other causes of thromboembolic disease. Disclaimer: This test was developed and its performance characteristics determined by [facility]'s [facility] [place] ([facility] It has not been cleared or approved by the FDA. [facility] is regulated under CLIA as certified to perform high- complexity testing. This test is used for clinical purposes. It should not be regarded as investigational or for research. Testing and interpretation performed at [facility], [address] [place] [address]. CLIA Number: [id number] References: 1) Inheritied Thrombophilias in . ACOG Practice Bulletin. No. 197. [place] [employer]. Obsete Gynecol 2018;132:e18-34. 2) García SR, Desiree FR, Maia PH, and Yun MARISCAL. A common genetic variation in the 3'-untranslated region of the prothrombin gene is associated with elevated plasma prothrombin levels and an increase in venous thrombosis. Blood 88:3698-703, 1995. 3) Ebony I, Segundo V, Amie C, Chiara Santizo. Prothrombin 59938U>T: 16 new cases, association with the 69809G>G polymorphism, and literature review. J Thromb Haemost. 2009;9:1585-7. As reviewed by Opal Tucker, PhD, HCLD Performed By: [employer] [address] [place] [address]. [place] [address] Title Insurance Examiner: Felix See III, M.D. CLIA#: [id number] Performed By: #### A PTT #### [address] [address] .Auto Diffon 04-26-2023 Basophil, Absolute 0.1 10 3/mcL Normal 0.0-0.3 [facility] ([place]) Comment on above: Performed By: #### A PTT, CBC, ANEU, ADIFF #### [address] [address] Basophils/100 WBC (Bld) 1.2 % Normal 0.0-2.5 [facility] ([place]) Comment on above: Performed By: #### A PTT, CBC, ANEU, ADIFF #### [address] [address] Eosinophil, Absolute 0.1 10 3/mcL Normal 0.0-0.7 [facility] ([place]) Comment on above: Performed By: #### A PTT, CBC, ANEU, ADIFF #### [address] [address] Eosinophils/100 WBC (Bld) 1.4 % Normal 0.0-6.0 [facility] ([place]) Comment on above: Performed By: #### A PTT, CBC, ANEU, ADIFF #### [address] [address] Lymphocyte, Absolute 1.4 10 3/mcL Normal 0.9-4.3 [facility] ([place]) Comment on above: Performed By: #### A PTT, CBC, ANEU, ADIFF #### [address] [address] Lymphocytes/100 WBC (Bld) 13.7 % Low 20.0-40.0 [facility] ([place]) Comment on above: Performed By: #### A PTT, CBC, ANEU, ADIFF #### [address] [address] Monocyte, Absolute 0.7 10 3/mcL Normal 0.1-1.4 [facility] ([place]) Comment on above: Performed By: #### A PTT, CBC, ANEU, ADIFF #### [address] [address] Monocytes/100 WBC (Bld) 7.2 % Normal 2.0-13.0 [facility] ([place]) Comment on above: Performed By: #### A PTT, CBC, ANEU, ADIFF #### [address] [address] Neutrophils/100 WBC (Bld) 76.5 % High 50.0-75.0 [facility] ([place]) Comment on above: Performed By: #### A PTT, CBC, ANEU, ADIFF #### [address] [address] .GFRon 04-26-2023 GFR Non- >60 Normal [facility] ([place]) Comment on above: Result Comment: GFR Population [...] #### A PTT, CBC, ANEU, ADIFF #### [address] [address] GFR >60 Normal [facility] ([place]) Comment on above: Result Comment: GFR Population [...] #### A PTT, CBC, ANEU, ADIFF #### [address] [address] .NEUABSon 04-26-2023 Neutrophil, Absolute 7.6 10 3/mcL Normal 2.3-8.1 [facility] ([place]) Comment on above: Performed By: #### A PTT, CBC, ANEU, ADIFF #### [address] [address] APTTon 04-26-2023 aPTT Coag (Bld) [Time] 54.6 s High 25.0-35.0 [facility] ([place]) Comment on above: Result Comment: For Heparin anticoagulation therapy, the recommended therapeutic range is: 54-77 seconds (APTT Correlation with Anti-Xa therapeutic range of 0.3-0.7 units/ml). PLEASE REFERENCE THE PHARMACY PROTOCOL FOR DOSING. Performed By: #### A PTT, CBC, ANEU, ADIFF #### [address] [address] Heparin dose (APTT) Heparin IV [facility]) Comment on above: Performed By: #### A PTT, CBC, ANEU, ADIFF #### [address] [address] AT3on 04-26-2023 Anti-Thrombin III 83 % Low 84-126 [facility] ([place]) Comment on above: Performed By: #### A PTT, CBC, ANEU, ADIFF #### [address] [address] BMPon 04-26-2023 BUN/Creatinine Ratio 30.3 ratio High 10.0-22.0 [facility] ([place]) Comment on above: Performed By: #### A PTT, CBC, ANEU, ADIFF #### [address] [address] Calcium [Mass/Vol] 8.5 mg/dL Low 8.7-10.4 [facility] ([place]) Comment on above: Performed By: #### A PTT, CBC, ANEU, ADIFF #### [address] [address] Chloride [Moles/Vol] 105 mmol/L Normal 98-110 [facility] ([place]) Comment on above: Performed By: #### A PTT, CBC, ANEU, ADIFF #### [address] [address] CO2 [Moles/Vol] 23 mmol/L Normal 22-32 [facility] ([place]) Comment on above: Performed By: #### A PTT, CBC, ANEU, ADIFF #### [address] [address] Creatinine [Mass/Vol] 0.66 mg/dL Normal 0.50-1.20 [facility] ([place]) Comment on above: Performed By: #### A PTT, CBC, ANEU, ADIFF #### [address] [address] Electrolyte Balance 10.0 mEq/L Normal 4.0-15.0 [facility] [place]) Comment on above: Performed By: #### A PTT, CBC, ANEU, ADIFF #### [address] [address] Glucose [Mass/Vol] 112 mg/dL Normal 82-115 [facility] ([place]) Comment on above: Performed By: #### A PTT, CBC, ANEU, ADIFF #### [address] [address] Potassium [Moles/Vol] 3.0 mmol/L Low 3.5-5.0 [facility] ([place]) Comment on above: Performed By: #### A PTT, CBC, ANEU, ADIFF #### [place] [phone] Sodium [Moles/Vol] 138 mmol/L Normal 136-145 [facility] ([place]) Comment on above: Performed By: #### A PTT, CBC, ANEU, ADIFF #### [address] [address] Urea nitrogen [Mass/Vol] 20.0 mg/dL Normal 8.0-22.0 [facility] ([place]) Comment on above: Performed By: #### A PTT, CBC, ANEU, ADIFF #### [address] [address] CARDIGon 04-26-2023 IgG Cardiolipin Ab <9.0 Normal <15.0 [facility] ([place]) Comment on above: Result Comment: <15 GPL Negative 15-20 GPL Indeterminate >20 GPL Positive The following results were obtained with the [employer] QUANTA Lite RYANNE IgG III TRISH. Cardiolipin [...] others. Clinical correlation is required. Performed By: [facility] [address] [place] [address] Title Insurance Examiner: Felix See III, M.D. CLIA#: [id number] Performed By: #### A PTT #### [address] [address] CARDIMon 04-26-2023 IgM Cardiolipin Ab <9.0 Normal <12.5 [facility] ([place]) Comment on above: Result Comment: <12. 5 MPL Negative 12.5-20 MPL Indeterminate >20 MPL Positive The following results were obtained with the [employer] Lite RYANNE IgM III TRISH. Cardiolipin IgM [...] others. Clinical correlation is required. Performed By: [address] [address] Title Insurance Examiner: Felix See III, M.D. CLIA#: [id number] Performed By: #### A PTT #### [address] [address] CBCon 04-26-2023 Erythrocyte distribution width (RBC) [Ratio] 14.2 % Normal 11.5-15.5 [facility] ([place]) Comment on above: Performed By: #### A PTT, CBC, ANEU, ADIFF #### [address] [address] Hematocrit (Bld) [Volume fraction] 36.2 % Normal 34.0-46.0 [facility] ([place]) Comment on above: Performed By: #### A PTT, CBC, ANEU, ADIFF #### [address] [address] Hgb 12.4 G/dL Normal 12.0-16.0 [facility] ([place]) Comment on above: Performed By: #### A PTT, CBC, ANEU, ADIFF #### [place] [phone] MCH (RBC) [Entitic mass] 29.2 pg Normal 27.0-33.0 [facility] ([place]) Comment on above: Performed By: #### A PTT, CBC, ANEU, ADIFF #### [place] [phone] MCHC 34.1 G/dL Normal 32.0-36.0 [facility] ([place]) Comment on above: Performed By: #### A PTT, CBC, ANEU, ADIFF #### [place] [phone] MCV (RBC) [Entitic vol] 85.6 fL Normal 80.0-99.0 [facility] ([place]) Comment on above: Performed By: #### A PTT, CBC, ANEU, ADIFF #### [place] [address] Platelet 144 10 3/mcL Low 150-450 [facility] ([place]) Comment on above: Performed By: #### A PTT, CBC, ANEU, ADIFF #### [place] [address] Platelet mean volume (Bld) [Entitic vol] 7.6 fL Normal 6.6-10.5 [facility] ([place]) Comment on above: Performed By: #### A PTT, CBC, ANEU, ADIFF #### [place] [address] RBC 4.24 10 6/mcL Normal 4.10-5.30 [facility] ([place]) Comment on above: Performed By: #### A PTT, CBC, ANEU, ADIFF #### [place] [phone] WBC 9.9 10 3/mcL Normal 4.5-10.8 [facility] ([place]) Comment on above: Performed By: #### A PTT, CBC, ANEU, ADIFF #### [place] [phone] LABORATORYOrdered By: Amairani Jhaveri on 04-26-2023 aPTT [...] - 2.5 % Workflow SS Calcium [Mass/Vol] 8.5 mg/dL Invalid [...] Invalid Interpretation Code 0.0 - 6.0 % Workflow SS Erythrocyte distribution width (RBC) [Ratio] 14.2 % Invalid Interpretation Code 11.5 - 15.5 % Workflow SS GFR/1.73 sq M.predicted among blacks MDRD (S/P/Bld) [Vol rate/Area] ml/min/1.73sqm Invalid Interpretation Code ADM SS GFR/1.73 sq M.predicted among non-blacks MDRD (S/P/Bld) [Vol rate/Area] ml/min/1.73sqm Invalid Interpretation Code ADM SS Glucose [Mass/Vol] 112 mg/dL Invalid [...] 145 mEq/L ADM SS Urea nitrogen [Mass/Vol] 20.0 mg/dL Invalid Interpretation Code 8.0 - 22.0 mg/dL ADM SS Urea nitrogen/Creatinine [Mass ratio] 30.3 ratio Invalid Interpretation Code 10.0 - 22.0 ratio AH ADM SS WBC (Bld) [#/Vol] 9.9 103/mcL Invalid Interpretation Code 4.5 - 10.8 10^3/mcL AH Workflow SS PROTCon 04-26-2023 Protein C 98 % Normal >=80 [facility] ([place]) Comment on above: Performed By: #### A PTT, CBC, ANEU, ADIFF #### [address] [address] PRSFAon 04-26-2023 Protein S Free Antigen 85 % Normal 55-124 [facility] ([place]) Comment on above: Result Comment: Prot ein S Type II deficiency (very rare) is not detected by this assay. (Pathophysiology of Haemostasis and Thrombosis 04: 33:202-205 and Thrombosis Haemostasis 2000; 84:918) Performed By: #### A PTT, CBC, ANEU, ADIFF #### [address] [address] .Auto Diffon 04-25-2023 Basophil, Absolute 0.1 10 3/mcL Normal 0.0-0.3 [facility] ([place]) Comment on above: Performed By: #### A PTT, CBC, ANEU, ADIFF #### [address] [address] Basophils/100 WBC (Bld) 0.5 % Normal 0.0-2.5 [facility] ([place]) Comment on above: Performed By: #### A PTT, CBC, ANEU, ADIFF #### [address] [address] Eosinophil, Absolute 0.0 10 3/mcL Normal 0.0-0.7 [facility] ([place]) Comment on above: Performed By: #### A PTT, CBC, ANEU, ADIFF #### [address] [address] Eosinophils/100 WBC (Bld) 0.2 % Normal 0.0-6.0 [facility] ([place]) Comment on above: Performed By: #### A PTT, CBC, ANEU, ADIFF #### [address] [address] Lymphocyte, Absolute 1.3 10 3/mcL Normal 0.9-4.3 [facility] ([place]) Comment on above: Performed By: #### A PTT, CBC, ANEU, ADIFF #### [address] [address] Lymphocytes/100 WBC (Bld) 11.1 % Low 20.0-40.0 [facility] ([place]) Comment on above: Performed By: #### A PTT, CBC, ANEU, ADIFF #### [place] [id number] [place] [address] Monocyte, Absolute 0.8 10 3/mcL Normal 0.1-1.4 [facility] ([place]) Comment on above: Performed By: #### A PTT, CBC, ANEU, ADIFF #### [address] [address] Monocytes/100 WBC (Bld) 6.9 % Normal 2.0-13.0 [facility] ([place]) Comment on above: Performed By: #### A PTT, CBC, ANEU, ADIFF #### [address] [address] Neutrophils/100 WBC (Bld) 81.3 % High 50.0-75.0 [facility] ([place]) Comment on above: Performed By: #### A PTT, CBC, ANEU, ADIFF #### [address] [address] .GFRon 04-25-2023 GFR Non- >60 Normal [facility] ([place]) Comment on above: Result Comment: GFR Population [...] #### A PTT, CBC, ANEU, ADIFF #### [address] [address] GFR >60 Normal [facility] ([place]) Comment on above: Result Comment: GFR Population [...] #### A PTT, CBC, ANEU, ADIFF #### [address] [address] .NEUABSon 04-25-2023 Neutrophil, Absolute 9.4 10 3/mcL High 2.3-8.1 [facility] ([place]) Comment on above: Performed By: #### A PTT, CBC, ANEU, ADIFF #### [place] [phone] A1Con 04-25-2023 HbA1c (Bld) [Mass fraction] 5.4 % Normal 4.0-6.0 [facility] ([place]) Comment on above: Performed By: #### A PTT #### [place] [id number] ANAon 04-25-2023 Nuclear Ab IF (S) [Titer] 40 {titer} Normal Neg 40 [facility] ([place]) Comment on above: Result Comment: OLIVER Screen and Titer methodology is an immunofluorescent technique utilizing Hep2 Substrate. Performed By: #### A PTT, CBC, ANEU, ADIFF #### [address] [address] APTTon 04-25-2023 aPTT Coag (Bld) [Time] 55.7 s High 25.0-35.0 [facility] ([place]) Comment on above: Result Comment: For Heparin anticoagulation therapy, the recommended therapeutic range is: 54-77 seconds (APTT Correlation with Anti-Xa therapeutic range of 0.3-0.7 units/ml). PLEASE REFERENCE THE PHARMACY PROTOCOL FOR DOSING. Performed By: #### A PTT #### [address] [address] Heparin dose (APTT) Unknown [facility] [place]) Comment on above: Performed By: #### A PTT #### [place] [phone] aPTT Coag (Bld) [Time] 56.9 s High 25.0-35.0 [facility] ([place]) Comment on above: Result Comment: For Heparin anticoagulation therapy, the recommended therapeutic range is: 54-77 seconds (APTT Correlation with Anti-Xa therapeutic range of 0.3-0.7 units/ml). PLEASE REFERENCE THE PHARMACY PROTOCOL FOR DOSING. Performed By: #### A PTT, CBC, ANEU, ADIFF #### [place] [phone] Heparin dose (APTT) Heparin IV [facility] ([place]) Comment on above: Performed By: #### A PTT, CBC, ANEU, ADIFF #### [place] [phone] aPTT Coag (Bld) [Time] 52.6 s High 25.0-35.0 [facility] ([place]) Comment on above: Result Comment: For Heparin anticoagulation therapy, the recommended therapeutic range is: 54-77 seconds (APTT Correlation with Anti-Xa therapeutic range of 0.3-0.7 units/ml). PLEASE REFERENCE THE PHARMACY PROTOCOL FOR DOSING. Performed By: #### A PTT #### [address] [address] Heparin dose (APTT) Heparin IV [facility] ([place]) Comment on above: Performed By: #### A PTT #### [address] [address] aPTT Coag (Bld) [Time] 59.4 s High 25.0-35.0 [facility] ([place]) Comment on above: Result Comment: For Heparin anticoagulation therapy, the recommended therapeutic range is: 54-77 seconds (APTT Correlation with Anti-Xa therapeutic range of 0.3-0.7 units/ml). PLEASE REFERENCE THE PHARMACY PROTOCOL FOR DOSING. Performed By: #### A PTT, CBC, ANEU, ADIFF #### [address] [address] Heparin dose (APTT) Heparin IV [facility] [place] Comment on above: Performed By: #### A PTT, CBC, ANEU, ADIFF #### [address] [address] BMPon 04-25-2023 BUN/Creatinine Ratio 35.2 ratio High 10.0-22.0 [facility] ([place]) Comment on above: Performed By: #### A PTT, CBC, ANEU, ADIFF #### [place] [phone] Calcium [Mass/Vol] 8.7 mg/dL Normal 8.7-10.4 [facility] ([place]) Comment on above: Performed By: #### A PTT, CBC, ANEU, ADIFF #### [place] [address] Chloride [Moles/Vol] 105 mmol/L Normal 98-110 [facility] ([place]) Comment on above: Performed By: #### A PTT, CBC, ANEU, ADIFF #### [place] [id number] CO2 [Moles/Vol] 23 mmol/L Normal 22-32 [facility] ([place]) Comment on above: Performed By: #### A PTT, CBC, ANEU, ADIFF #### [place] [id number] Creatinine [Mass/Vol] 0.71 mg/dL Normal 0.50-1.20 [facility] ([place]) Comment on above: Performed By: #### A PTT, CBC, ANEU, ADIFF #### [address] [address] Electrolyte Balance 11.0 mEq/L Normal 4.0-15.0 [facility] [place] Comment on above: Performed By: #### A PTT, CBC, ANEU, ADIFF #### [address] [address] Glucose [Mass/Vol] 127 mg/dL High 82-115 [facility] ([place]) Comment on above: Performed By: #### A PTT, CBC, ANEU, ADIFF #### [address] [address] Potassium [Moles/Vol] 3.2 mmol/L Low 3.5-5.0 [facility] ([place]) Comment on above: Performed By: #### A PTT, CBC, ANEU, ADIFF #### [address] [address] Sodium [Moles/Vol] 139 mmol/L Normal 136-145 [facility] ([place]) Comment on above: Performed By: #### A PTT, CBC, ANEU, ADIFF #### [address] [address] Urea nitrogen [Mass/Vol] 25.0 mg/dL High 8.0-22.0 [facility] ([place]) Comment on above: Performed By: #### A PTT, CBC, ANEU, ADIFF #### [address] [address] CBCon 04-25-2023 Erythrocyte distribution width (RBC) [Ratio] 14.2 % Normal 11.5-15.5 [facility] ([place]) Comment on above: Performed By: #### A PTT, CBC, ANEU, ADIFF #### [address] [address] Hematocrit (Bld) [Volume fraction] 36.3 % Normal 34.0-46.0 [facility] ([place]) Comment on above: Performed By: #### A PTT, CBC, ANEU, ADIFF #### [address] [address] Hgb 12.3 G/dL Normal 12.0-16.0 [facility] ([place]) Comment on above: Performed By: #### A PTT, CBC, ANEU, ADIFF #### [address] [address] MCH (RBC) [Entitic mass] 29.0 pg Normal 27.0-33.0 [facility] ([place]) Comment on above: Performed By: #### A PTT, CBC, ANEU, ADIFF #### [place] [address] MCHC 33.8 G/dL Normal 32.0-36.0 [facility] ([place]) Comment on above: Performed By: #### A PTT, CBC, ANEU, ADIFF #### [place] [address] MCV (RBC) [Entitic vol] 85.9 fL Normal 80.0-99.0 [facility] ([place]) Comment on above: Performed By: #### A PTT, CBC, ANEU, ADIFF #### [place] [address] Platelet 164 10 3/mcL Normal 150-450 [facility] ([place]) Comment on above: Performed By: #### A PTT, CBC, ANEU, ADIFF #### [place] [address] Platelet mean volume (Bld) [Entitic vol] 7.7 fL Normal 6.6-10.5 [facility] ([place]) Comment on above: Performed By: #### A PTT, CBC, ANEU, ADIFF #### [place] [address] RBC 4.22 10 6/mcL Normal 4.10-5.30 [facility] ([place]) Comment on above: Performed By: #### A PTT, CBC, ANEU, ADIFF #### [place] [address] WBC 11.5 10 3/mcL High 4.5-10.8 [facility] ([place]) Comment on above: Performed By: #### A PTT, CBC, ANEU, ADIFF #### [place] [address] LABORATORYOrdered By: Aysha Ramirez on 04-25-2023 aPTT Coag (PPP) [Time] 55.7 s Invalid Interpretation Code 25.0 - 35.0 seconds AH Auto Coag SS Heparin dose (APTT) Unknown (04/25/23 8:20 PM) Invalid Interpretation Code Auto Coag SS aPTT Coag (PPP) [Time] 56.9 s Invalid Interpretation Code 25.0 - 35.0 seconds Auto Coag SS Heparin dose (APTT) Heparin IV (04/25/23 2:20 PM) Invalid Interpretation Code Auto Coag SS LABORATORYOrdered By: SYSTEM SYSTEM [...] Invalid Interpretation Code 0.0 - 6.0 % Workflow SS Erythrocyte distribution width (RBC) [Ratio] 14.2 % Invalid Interpretation Code 11.5 - 15.5 % Workflow SS GFR/1.73 sq M.predicted among blacks [...] % AH Workflow SS Hemoglobin (Bld) [Mass/Vol] 12.3 G/dL Invalid Interpretation Code 12.0 - 16.0 G/dL AH Workflow SS Lymphocytes (Bld) [#/Vol] 1.3 103/mcL Invalid Interpretation Code 0.9 - 4.3 10^3/mcL AH Workflow SS Lymphocytes/100 WBC (Bld) 11.1 % Invalid Interpretation Code 20.0 - 40.0 % AH Workflow SS Magnesium [Mass/Vol] 2.3 mg/dL Invalid Interpretation Code 1.6 - 2.4 mg/dL AH ADM SS MCH (RBC) [Entitic mass] 29.0 pg Invalid Interpretation Code 27.0 - 33.0 pg AH Workflow SS MCHC 33.8 G/dL Invalid Interpretation Code 32.0 - 36.0 G/dL AH Workflow SS MCV (RBC) [Entitic vol] 85.9 [...] fL AH Workflow SS Platelets (Bld) [#/Vol] 164 103/mcL Invalid Interpretation Code 150 - 450 10^3/mcL AH Workflow SS Potassium [Moles/Vol] 3.2 mmol/L Invalid Interpretation Code 3.5 - 5.0 mEq/L AH ADM SS RBC (Bld) [#/Vol] 4.22 106/mcL Invalid Interpretation Code 4.10 - 5.30 10^6/mcL AH Workflow SS Sodium [Moles/Vol] 139 mmol/L Invalid Interpretation Code 136 - 145 mEq/L ADM SS Urea nitrogen [Mass/Vol] 25.0 mg/dL Invalid Interpretation Code 8.0 - 22.0 mg/dL AH ADM SS Urea nitrogen/Creatinine [Mass ratio] 35.2 ratio Invalid Interpretation Code 10.0 - 22.0 ratio AH ADM SS WBC (Bld) [#/Vol] 11.5 103/mcL Invalid Interpretation Code 4.5 - 10.8 10^3/mcL AH Workflow SS MGon 04-25-2023 Magnesium [Mass/Vol] 2.3 mg/dL Normal 1.6-2.4 [facility] ([place]) Comment on above: Performed By: #### A PTT, CBC, ANEU, ADIFF #### [address] [address] PHOSon 04-25-2023 Phosphate [Mass/Vol] 2.9 mg/dL Normal 2.4-5.1 [facility] ([place]) Comment on above: Result Comment: No te - New Reference Range in effect 20 Performed By: #### A PTT, CBC, ANEU, ADIFF #### [address] [address] XR CHEST 1 VIEWon 04-25-2023 XR CHEST [...] 04/25/2023 7:41:49 AM Ordering Provider: BUD Rich [facility] ([place]) .Auto Diffon 04-24-2023 Basophil, Absolute 0.0 10 3/mcL Normal 0.0-0.3 [facility] ([place]) Comment on above: Performed By: #### A PTT, CBC, ANEU, ADIFF #### [address] [address] Basophils/100 WBC (Bld) 0.3 % Normal 0.0-2.5 [facility] ([place]) Comment on above: Performed By: #### A PTT, CBC, ANEU, ADIFF #### [address] [address] Eosinophil, Absolute 0.0 10 3/mcL Normal 0.0-0.7 [facility] [facility] ([place] Comment on above: Performed By: #### A PTT, CBC, ANEU, ADIFF #### [address] [address] Eosinophils/100 WBC (Bld) 0.3 % Normal 0.0-6.0 [facility] ([place]) Comment on above: Performed By: #### A PTT, CBC, ANEU, ADIFF #### [address] [address] Lymphocyte, Absolute 0.8 10 3/mcL Low 0.9-4.3 [facility] ([place]) Comment on above: Performed By: #### A PTT, CBC, ANEU, ADIFF #### [address] [address] Lymphocytes/100 WBC (Bld) 6.9 % Low 20.0-40.0 [facility] ([place]) Comment on above: Performed By: #### A PTT, CBC, ANEU, ADIFF #### [address] [address] Monocyte, Absolute 0.7 10 3/mcL Normal 0.1-1.4 [facility] ([place]) Comment on above: Performed By: #### A PTT, CBC, ANEU, ADIFF #### [address] [address] Monocytes/100 WBC (Bld) 6.0 % Normal 2.0-13.0 [facility] ([place]) Comment on above: Performed By: #### A PTT, CBC, ANEU, ADIFF #### [address] [address] Neutrophils/100 WBC (Bld) 86.5 % High 50.0-75.0 [facility] ([place]) Comment on above: Performed By: #### A PTT, CBC, ANEU, ADIFF #### [address] [address] .GFRon 04-24-2023 GFR >60 Normal [facility] ([place]) Comment on above: Result Comment: GFR Population [...] BC, GFR, ANEU, ADIFF, PBNP, CMP #### [address] [address] GFR Non- >60 Normal [facility] ([place]) Comment on above: Result Comment: GFR Population [...] BC, GFR, ANEU, ADIFF, PBNP, CMP #### [address] [address] .NEUABSon 04-24-2023 Neutrophil, Absolute 10.0 10 3/mcL High 2.3-8.1 [facility] ([place]) Comment on above: Performed By: #### A PTT, CBC, ANEU, ADIFF #### [address] [address] APTTon 04-24-2023 aPTT Coag (Bld) [Time] 38.2 s High 25.0-35.0 [facility] ([place]) Comment on above: Result Comment: For Heparin anticoagulation therapy, the recommended therapeutic range is: 54-77 seconds (APTT Correlation with Anti-Xa therapeutic range of 0.3-0.7 units/ml). PLEASE REFERENCE THE PHARMACY PROTOCOL FOR DOSING. Performed By: #### A PTT, CBC, ANEU, ADIFF #### [place] [phone] Heparin dose (APTT) Unknown [facility] [place] Comment on above: Performed By: #### A PTT, CBC, ANEU, ADIFF #### [place] [address] aPTT Coag (Bld) [Time] 52.8 s High 25.0-35.0 [facility] ([place]) Comment on above: Result Comment: For Heparin anticoagulation therapy, the recommended therapeutic range is: 54-77 seconds (APTT Correlation with Anti-Xa therapeutic range of 0.3-0.7 units/ml). PLEASE REFERENCE THE PHARMACY PROTOCOL FOR DOSING. Performed By: #### C BC, GFR, ANEU, ADIFF, PBNP, CMP #### [place] [phone] Heparin dose (APTT) Heparin IV Normal [facility] [place] Comment on above: Performed By: #### C BC, GFR, ANEU, ADIFF, PBNP, CMP #### [address] [address] aPTT Coag (Bld) [Time] 102.1 s High 25.0-35.0 [facility] ([place]) Comment on above: Result Comment: For Heparin anticoagulation therapy, the recommended therapeutic range is: 54-77 seconds (APTT Correlation with Anti-Xa therapeutic range of 0.3-0.7 units/ml). PLEASE REFERENCE THE PHARMACY PROTOCOL FOR DOSING. Performed By: #### A PTT, CBC, ANEU, ADIFF #### [place] [phone] Heparin dose (APTT) Heparin IV Normal [facility] [place] Comment on above: Performed By: #### A PTT, CBC, ANEU, ADIFF #### [address] [address] CBCon 04-24-2023 Erythrocyte distribution width (RBC) [Ratio] 13.8 % Normal 11.5-15.5 [facility] ([place]) Comment on above: Performed By: #### A PTT, CBC, ANEU, ADIFF #### [place] [address] Hematocrit (Bld) [Volume fraction] 39.3 % Normal 34.0-46.0 [facility] ([place]) Comment on above: Performed By: #### A PTT, CBC, ANEU, ADIFF #### [place] [phone] Hgb 13.3 G/dL Normal 12.0-16.0 [facility] ([place]) Comment on above: Performed By: #### A PTT, CBC, ANEU, ADIFF #### [place] [phone] MCH (RBC) [Entitic mass] 29.1 pg Normal 27.0-33.0 [facility] ([place]) Comment on above: Performed By: #### A PTT, CBC, ANEU, ADIFF #### [place] [phone] MCHC 33.7 G/dL Normal 32.0-36.0 [facility] ([place]) Comment on above: Performed By: #### A PTT, CBC, ANEU, ADIFF #### [place] [phone] MCV (RBC) [Entitic vol] 86.2 fL Normal 80.0-99.0 [facility] ([place]) Comment on above: Performed By: #### A PTT, CBC, ANEU, ADIFF #### [place] [phone] Platelet 176 10 3/mcL Normal 150-450 [facility] ([place]) Comment on above: Performed By: #### A PTT, CBC, ANEU, ADIFF #### [place] [address] Platelet mean volume (Bld) [Entitic vol] 7.9 fL Normal 6.6-10.5 [facility] ([place]) Comment on above: Performed By: #### A PTT, CBC, ANEU, ADIFF #### [place] [address] RBC 4.56 10 6/mcL Normal 4.10-5.30 [facility] ([place]) Comment on above: Performed By: #### A PTT, CBC, ANEU, ADIFF #### [place] [address] WBC 11.6 10 3/mcL High 4.5-10.8 [facility] ([place]) Comment on above: Performed By: #### A PTT, CBC, ANEU, ADIFF #### [place] [address] CMPon 04-24-2023 Albumin Level 3.3 G/dL Normal 3.2-4.8 [facility] ([place]) Comment on above: Order Comment: redra w due to hemolysis Performed By: #### C BC, GFR, ANEU, ADIFF, PBNP, CMP #### [place] [phone] Albumin/Globulin [Mass ratio] 0.9 {ratio} Normal 0.9-1.6 [facility] ([place]) Comment on above: Order Comment: redra w due to hemolysis Performed By: #### C BC, GFR, ANEU, ADIFF, PBNP, CMP #### [place] [phone] ALP [Catalytic activity/Vol] 130 U/L High 38-126 [facility] ([place]) Comment on above: Order Comment: redra w due to hemolysis Performed By: #### C BC, GFR, ANEU, ADIFF, PBNP, CMP #### [facility] [address] [place], [place] [address] ALT [Catalytic activity/Vol] 24 U/L Normal 10-49 [facility] ([place]) Comment on above: Order Comment: redra w due to hemolysis Performed By: #### C BC, GFR, ANEU, ADIFF, PBNP, CMP #### [address] [address] AST [Catalytic activity/Vol] 20 U/L Normal 8-34 [facility] ([place]) Comment on above: Order Comment: redra w due to hemolysis Performed By: #### C BC, GFR, ANEU, ADIFF, PBNP, CMP #### [address] [address] Bili Total 0.60 mg/dL Normal 0.20-1.20 [facility] ([place]) Comment on above: Order Comment: redra w due to hemolysis Result Comment: Use of this assay is not recommended for patients undergoing treatment with eltrombopag due to the potential for falsely elevated results. Performed By: #### C BC, GFR, ANEU, ADIFF, PBNP, CMP #### [address] [address] BUN/Creatinine Ratio 28.8 ratio High 10.0-22.0 [facility] ([place]) Comment on above: Order Comment: redra w due to hemolysis Performed By: #### C BC, GFR, ANEU, ADIFF, PBNP, CMP #### [address] [address] Calcium [Mass/Vol] 9.0 mg/dL Normal 8.7-10.4 [facility] ([place]) Comment on above: Order Comment: redra w due to hemolysis Performed By: #### C BC, GFR, ANEU, ADIFF, PBNP, CMP #### [address] [address] Chloride [Moles/Vol] 104 mmol/L Normal 98-110 [facility] ([place]) Comment on above: Order Comment: redra w due to hemolysis Performed By: #### C BC, GFR, ANEU, ADIFF, PBNP, CMP #### [address] [address] CO2 [Moles/Vol] 24 mmol/L Normal 22-32 [facility] ([place]) Comment on above: Order Comment: redra w due to hemolysis Performed By: #### C BC, GFR, ANEU, ADIFF, PBNP, CMP #### [address] [address] Creatinine [Mass/Vol] 0.73 mg/dL Normal 0.50-1.20 [facility] ([place]) Comment on above: Order Comment: redra w due to hemolysis Performed By: #### C BC, GFR, ANEU, ADIFF, PBNP, CMP #### [address] [address] Electrolyte Balance 10.0 mEq/L Normal 4.0-15.0 [facility] ([place]) Comment on above: Order Comment: redra w due to hemolysis Performed By: #### C BC, GFR, ANEU, ADIFF, PBNP, CMP #### [place] [phone] Globulin 3.5 G/dL Normal 1.5-3.8 [facility] ([place]) Comment on above: Order Comment: redra w due to hemolysis Performed By: #### C BC, GFR, ANEU, ADIFF, PBNP, CMP #### [place] [phone] Glucose [Mass/Vol] 130 mg/dL High 82-115 [facility] ([place]) Comment on above: Order Comment: redra w due to hemolysis Performed By: #### C BC, GFR, ANEU, ADIFF, PBNP, CMP #### [place] [phone] Potassium [Moles/Vol] 4.1 mmol/L Normal 3.5-5.0 [facility] ([place]) Comment on above: Order Comment: redra w due to hemolysis Performed By: #### C BC, GFR, ANEU, ADIFF, PBNP, CMP #### [address] [address] Sodium [Moles/Vol] 138 mmol/L Normal 136-145 [facility] ([place]) Comment on above: Order Comment: redra w due to hemolysis Performed By: #### C BC, GFR, ANEU, ADIFF, PBNP, CMP #### [place] [address] Total Protein 6.8 G/dL Normal 5.7-8.2 [facility] ([place]) Comment on above: Order Comment: redra w due to hemolysis Result Comment: No te - New Reference Range in effect 20 Performed By: #### C BC, GFR, ANEU, ADIFF, PBNP, CMP #### [facility] [address] [place] [address] Urea nitrogen [Mass/Vol] 21.0 mg/dL Normal 8.0-22.0 [facility] ([place]) Comment on above: Order Comment: redra w due to hemolysis Performed By: #### C BC, GFR, ANEU, ADIFF, PBNP, CMP #### [place] [phone] HOMOon 04-24-2023 Homocysteine 10.5 umol/l Normal 3.7-13.9 [facility] ([place]) Comment on above: Result Comment: No te - New Reference Range in effect 20 Performed By: #### A PTT, CBC, ANEU, ADIFF #### [place] [address] IR PULMONARY ANGIO/EKOS CATH PLACEon 04-24-2023 IR PULMONARY ANGIO/EKOS CATH PLACE ORIGINAL Images acquired, not reported on this accession number. Normal [facility] ([place]) LABORATORYOrdered By: SYSTEM SYSTEM on 04-24-2023 Albumin [...] Invalid Interpretation Code 10 - 49 U/L AH ADM SS AST [Catalytic activity/Vol] 20 U/L Invalid Interpretation Code 8 - 34 U/L AH ADM SS Basophils (Bld) [#/Vol] 0.0 103/mcL Invalid Interpretation Code 0.0 - 0.3 10^3/mcL AH Workflow SS Basophils/100 WBC (Bld) 0.3 % Invalid Interpretation Code 0.0 - 2.5 % Workflow SS Bilirubin [Mass/Vol] 0.60 mg/dL Invalid Interpretation Code 0.20 - 1.20 mg/dL ADM SS Calcium [Mass/Vol] 9.0 mg/dL Invalid Interpretation Code 8.7 - 10.4 mg/dL ADM SS Chloride [Moles/Vol] 104 mmol/L Invalid [...] 0.7 10^3/mcL Workflow SS Eosinophils/100 WBC (Bld) 0.3 % Invalid Interpretation Code 0.0 - 6.0 % Workflow SS Erythrocyte distribution width (RBC) [Ratio] 13.8 % Invalid Interpretation Code 11.5 - 15.5 % Workflow SS GFR/1.73 sq M.predicted among blacks [...] 12.0 - 16.0 G/dL AH Workflow SS Homocysteine [Moles/Vol] 10.5 umol/L Invalid Interpretation Code 3.7 - 13.9 umol/l AH ADM SS Lymphocytes (Bld) [#/Vol] 0.8 103/mcL Invalid Interpretation Code 0.9 - 4.3 10^3/mcL AH Workflow SS Lymphocytes/100 WBC (Bld) 6.9 % Invalid Interpretation Code 20.0 - 40.0 % AH Workflow SS Magnesium [Mass/Vol] 2.3 mg/dL Invalid Interpretation Code 1.6 - 2.4 mg/dL AH ADM SS MCH (RBC) [Entitic mass] 29.1 pg Invalid Interpretation Code 27.0 - 33.0 pg AH Workflow SS MCHC 33.7 G/dL Invalid Interpretation Code 32.0 - 36.0 G/dL AH Workflow SS MCV (RBC) [Entitic vol] 86.2 fL Invalid Interpretation Code 80.0 - 99.0 fL AH Workflow SS Monocytes (Bld) [#/Vol] 0.7 103/mcL Invalid Interpretation Code 0.1 - 1.4 10^3/mcL AH Workflow SS Monocytes/100 WBC (Bld) 6.0 % Invalid Interpretation Code 2.0 - 13.0 % AH Workflow SS Neutrophils (Bld) [#/Vol] 10.0 103/mcL Invalid Interpretation Code 2.3 - 8.1 10^3/mcL AH Workflow SS Neutrophils/100 WBC (Bld) 86.5 % [...] % AH Auto Coag SS LABORATORYOrdered By: CLEV_Tommy WHITNEY CONTRIBUTOR_SYSTEM on 04-24-2023 Beta-2 Glycoprotein Abs, IgA MANISHA Invalid Interpretation Code <=20SAU AH Sendouts SS Comment on above: Result Comment: Perf ormed By: [facility] [address] [place] [address] [employer] Layout Taper: Dontrell Arce MD, PhD IgG Cardiolipin Ab GPL Invalid Interpretation Code <15.0GPL [facility] Comment on above: Result Comment: <15 GPL [...] others. Clinical correlation is required. Performed By: [place] [address] Title Insurance Examiner: Felix See III, M.D. CLIA#: [id number] IgM Cardiolipin Ab MPL Invalid Interpretation Code <12.5MPL [facility] Comment on above: Result Comment: <12. 5 [...] others. Clinical correlation is required. Performed By: [facility] [address] [place] [address] Title Insurance Examiner: Felix See III, M.D. CLIA#: [id number] PT Gene Mut Prothrombin Gene Mutation Invalid Interpretation Code [facility] Comment on above: Result Comment: [facility] Accession Number: [id number] Result: NORMAL Interpretation: The DNA sample is negative for the c.*97G>A variant (legacy name 56433Q>A) in the 3' untranslated region of the Factor II (F2) gene. This result is not associated with an increased risk of thromboembolic disease. Thromboembolic disease is a multifactorial disorder and other causes are not excluded by this result. Methodology: Isolated Genomic DNA from the patient's blood specimen is evaluated for the c*97G>A ([id number]) variant of the F2 gene [RefSeq [id number];GRCh38/hg38] by multiplex polymerase chain reaction (PCR) followed by melting curve analysis. Limitations: This assay is designed to detect the c.*97G>A (44904D>A) variant in the F2 gene. Uncommon variants or single nucleotide polymorphisms may affect binding of probes and may rarely result in false negative, false positive or indeterminate results. This assay does not detect other disease-associated rare variants in F2 or other causes of thromboembolic disease. Disclaimer: This test was developed and its performance characteristics determined by [facility]'s [facility] [place] ([facility] It has not been cleared or approved by the FDA. [facility] is regulated under CLIA as certified to perform high- complexity testing. This test is used for clinical purposes. It should not be regarded as investigational or for research. Testing [place] [address]. CLIA Number: [id number] References: 1) Inheritied Thrombophilias in . ACOG Practice Bulletin. No. 197. [place] [employer]. Obsete Gynecol 2018;132:e18-34. 2) Jjt SR, Desiree FR, Maia PH, and Yun MARISCAL. A common genetic variation in the 3'-untranslated region of the prothrombin gene is associated with elevated plasma prothrombin levels and an increase in venous thrombosis. Blood 88:3698-703, 1995. 3) Ebony I, Segundo V, Amie C, Chiara K. Prothrombin 93048Q>T: 16 new cases, association with the 46407N>G polymorphism, and literature review. J Thromb Haemost. 2009;9:1585-7. As reviewed by Opal Tucker, PhD, HCLD Performed By: [facility] [address] [place] [address]. [place] [address] Title Insurance Examiner: Felix See III, M.D. CLIA#: [id number] LABORATORYOrdered By: Neftali Tijerina on 04-24-2023 Nuclear Ab IF Ql (S) Neg 40 (04/24/23 4:12 PM) Invalid Interpretation Code Neg 40 Man Viro/Sero SS LABORATORYOrdered By: Samantha Villasenor on 04-24-2023 Blood Glucose Testing Reason Routine (04/24/23 11:30 AM) [facility] Glucose [Mass/Vol] 131 mg/dL Invalid Interpretation Code 82 - 115 mg/dL [facility] MGon 04-24-2023 Magnesium [Mass/Vol] 2.3 mg/dL Normal 1.6-2.4 [facility] ([place]) Comment on above: Performed By: #### C BC, GFR, ANEU, ADIFF, PBNP, CMP #### [address] [address] PHOSon 04-24-2023 Phosphate [Mass/Vol] 2.5 mg/dL Normal 2.4-5.1 [facility] ([place]) Comment on above: Result Comment: No te - New Reference Range in effect 20 Performed By: #### C BC, GFR, ANEU, ADIFF, PBNP, CMP #### [place] [phone] XR CHEST 1 VIEWon 04-24-2023 XR CHEST 1 VIEW ORIGINAL EXAMINATION: ONE XRAY VIEW OF THE CHEST04/24/2023 6:20 pm CHEST ONE VIEW AP/PA COMPARISON: 04/24/2023 HISTORY: ORDERING SYSTEM PROVIDED HISTORY: Reason for Exam: pain/[id number] ^ FINDINGS: Lines/Tubes: None. Interval removal of [...] PM Ordering Provider: LEONA MCNAIR [facility] ([place]) XR CHEST 1 VIEW ORIGINAL EXAMINATION: ONE [...] PM Ordering Provider: FELIPE HAWTHORNE [facility] ([place]) APTTon 04-23-2023 aPTT Coag (Bld) [Time] 93.3 s High 25.0-35.0 [facility] ([place]) Comment on above: Result Comment: For Heparin anticoagulation therapy, the recommended therapeutic range is: 54-77 seconds (APTT Correlation with Anti-Xa therapeutic range of 0.3-0.7 units/ml). PLEASE REFERENCE THE PHARMACY PROTOCOL FOR DOSING. Performed By: #### A PTT, CBC, ANEU, ADIFF #### [address] [address] Heparin dose (APTT) Heparin IV Normal [facility] ([place]) Comment on above: Performed By: #### A PTT, CBC, ANEU, ADIFF #### [address] [address] aPTT Coag (Bld) [Time] 59.6 s High 25.0-35.0 [facility] ([place]) Comment on above: Result Comment: For Heparin anticoagulation therapy, the recommended therapeutic range is: 54-77 seconds (APTT Correlation with Anti-Xa therapeutic range of 0.3-0.7 units/ml). PLEASE REFERENCE THE PHARMACY PROTOCOL FOR DOSING. Performed By: #### A PTT, CBC, ANEU, ADIFF #### [address] [address] Heparin dose (APTT) Heparin IV Normal [facility] ([place]) Comment on above: Performed By: #### A PTT, CBC, ANEU, ADIFF #### [address] [address] aPTT Coag (Bld) [Time] 76.6 s High 25.0-35.0 [facility] ([place]) Comment on above: Result Comment: For Heparin anticoagulation therapy, the recommended therapeutic range is: 54-77 seconds (APTT Correlation with Anti-Xa therapeutic range of 0.3-0.7 units/ml). PLEASE REFERENCE THE PHARMACY PROTOCOL FOR DOSING. Performed By: #### A PTT, CBC, ANEU, ADIFF #### [address] [address] Heparin dose (APTT) Heparin IV Normal [facility] ([place]) Comment on above: Performed By: #### A PTT, CBC, ANEU, ADIFF #### [address] [address] LABORATORYOrdered By: Angeli Shaffer on 04-23-2023 Lactate [Moles/Vol] 1.7 mmol/L Invalid Interpretation Code 0.2 - 2.0 mmol/L Auto Chem SS LABORATORYOrdered By: SYSTEM SYSTEM on 04-23-2023 Troponin I.cardiac DL <= 0.01 ng/mL [Mass/Vol] 117.43 ng/L Invalid Interpretation Code 0.00 - 34.00 ng/L ADM SS Troponin I.cardiac DL <= 0.01 ng/mL [Mass/Vol] 204.26 ng/L Invalid Interpretation Code 0.00 - 34.00 ng/L ADM SS LACon 04-23-2023 Lactic Acid Lvl 1.7 mmol/L Normal 0.2-2.0 [facility] ([place]) Comment on above: Performed By: #### A PTT, CBC, ANEU, ADIFF #### [place] [id number] TROPHSon 04-23-2023 Troponin I High Sensitivity 117.43 ng/L High 0.00-34.00 [facility] ([place]) Comment on above: Result Comment: If t he High Sensitive Troponin result is below the 99th percentile value (<45 ng/L) at the first blood draw, at least two additional blood samples should be drawn before results are interpreted as negative for AMI. Performed By: #### A PTT #### [place] [address] Troponin I High Sensitivity 204.26 ng/L High 0.00-34.00 [facility] ([place]) Comment on above: Result Comment: If t he High Sensitive Troponin result is below the 99th percentile value (<45 ng/L) at the first blood draw, at least two additional blood samples should be drawn before results are interpreted as negative for AMI. Performed By: #### A PTT, CBC, ANEU, ADIFF #### [place] [address] .Auto Diffon 04-22-2023 Basophil, Absolute 0.0 10 3/mcL Normal 0.0-0.3 [facility] ([place]) Comment on above: Performed By: #### C BC, GFR, ANEU, ADIFF, PBNP, CMP #### [place] [phone] Basophils/100 WBC (Bld) 0.2 % Normal 0.0-2.5 [facility] ([place]) Comment on above: Performed By: #### C BC, GFR, ANEU, ADIFF, PBNP, CMP #### [place] [address] Eosinophil, Absolute 0.1 10 3/mcL Normal 0.0-0.7 [facility] ([place]) Comment on above: Performed By: #### C BC, GFR, ANEU, ADIFF, PBNP, CMP #### [place] [address] Eosinophils/100 WBC (Bld) 0.5 % Normal 0.0-6.0 [facility] ([place]) Comment on above: Performed By: #### C BC, GFR, ANEU, ADIFF, PBNP, CMP #### [address] [address] Lymphocyte, Absolute 1.4 10 3/mcL Normal 0.9-4.3 [facility] ([place]) Comment on above: Performed By: #### C BC, GFR, ANEU, ADIFF, PBNP, CMP #### [address] [address] Lymphocytes/100 WBC (Bld) 13.1 % Low 20.0-40.0 [facility] ([place] Comment on above: Performed By: #### C BC, GFR, ANEU, ADIFF, PBNP, CMP #### [address] [address] Monocyte, Absolute 0.6 10 3/mcL Normal 0.1-1.4 [facility] ([place] Comment on above: Performed By: #### C BC, GFR, ANEU, ADIFF, PBNP, CMP #### [address] [address] Monocytes/100 WBC (Bld) 5.4 % Normal 2.0-13.0 [facility] ([place] Comment on above: Performed By: #### C BC, GFR, ANEU, ADIFF, PBNP, CMP #### [address] [address] Neutrophils/100 WBC (Bld) 80.8 % High 50.0-75.0 [facility] ([place] Comment on above: Performed By: #### C BC, GFR, ANEU, ADIFF, PBNP, CMP #### [address] [address] .GFRon 04-22-2023 GFR Non- >60 Normal [facility] ([place] Comment on above: Result Comment: GFR [...] BC, GFR, ANEU, ADIFF, PBNP, CMP #### [address] [address] GFR >60 Normal [facility] ([place]) Comment on above: Result Comment: GFR Population [...] BC, GFR, ANEU, ADIFF, PBNP, CMP #### [address] [address] .NEUABSon 04-22-2023 Neutrophil, Absolute 8.7 10 3/mcL High 2.3-8.1 [facility] ([place]) Comment on above: Performed By: #### C BC, GFR, ANEU, ADIFF, PBNP, CMP #### [address] [address] APTTon 04-22-2023 aPTT Coag (Bld) [Time] 132.1 s Critically abnormal 25.0-35.0 [facility] ([place]) Comment on above: Result Comment: For Heparin anticoagulation therapy, the recommended therapeutic range is: 54-77 seconds (APTT Correlation with Anti-Xa therapeutic range of 0.3-0.7 units/ml). PLEASE REFERENCE THE PHARMACY PROTOCOL FOR DOSING. Performed By: #### A PTT #### [place] [phone] Heparin dose (APTT) Heparin IV Normal [facility] [place] Comment on above: Performed By: #### A PTT #### [place] [phone] CBCon 04-22-2023 Erythrocyte distribution width (RBC) [Ratio] 14.0 % Normal 11.5-15.5 [facility] ([place] Comment on above: Performed By: #### C BC, GFR, ANEU, ADIFF, PBNP, CMP #### [place] [address] Hematocrit (Bld) [Volume fraction] 40.6 % Normal 34.0-46.0 [facility] ([place] Comment on above: Performed By: #### C BC, GFR, ANEU, ADIFF, PBNP, CMP #### [place] [address] Hgb 13.9 G/dL Normal 12.0-16.0 [facility] ([place] Comment on above: Performed By: #### C BC, GFR, ANEU, ADIFF, PBNP, CMP #### [place] [phone] MCH (RBC) [Entitic mass] 29.4 pg Normal 27.0-33.0 [facility] ([place] Comment on above: Performed By: #### C BC, GFR, ANEU, ADIFF, PBNP, CMP #### [place] [address] MCHC 34.3 G/dL Normal 32.0-36.0 [facility] ([place] Comment on above: Performed By: #### C BC, GFR, ANEU, ADIFF, PBNP, CMP #### [place] [address] MCV (RBC) [Entitic vol] 85.9 fL Normal 80.0-99.0 [facility] ([place] Comment on above: Performed By: #### C BC, GFR, ANEU, ADIFF, PBNP, CMP #### [place] [address] Platelet 181 10 3/mcL Normal 150-450 [facility] ([place] Comment on above: Performed By: #### C BC, GFR, ANEU, ADIFF, PBNP, CMP #### [place] [address] Platelet mean volume (Bld) [Entitic vol] 7.8 fL Normal 6.6-10.5 [facility] ([place] Comment on above: Performed By: #### C BC, GFR, ANEU, ADIFF, PBNP, CMP #### [place] [address] RBC 4.73 10 6/mcL Normal 4.10-5.30 [facility] ([place] Comment on above: Performed By: #### C BC, GFR, ANEU, ADIFF, PBNP, CMP #### [place] [address] WBC 10.8 10 3/mcL Normal 4.5-10.8 [facility] [facility] ([place]) Comment on above: Performed By: #### C BC, GFR, ANEU, ADIFF, PBNP, CMP #### [place] [address] CMPon 04-22-2023 Albumin Level 3.7 G/dL Normal 3.2-4.8 [facility] ([place]) Comment on above: Performed By: #### C BC, GFR, ANEU, ADIFF, PBNP, CMP #### [place] [address] Albumin/Globulin [Mass ratio] 1.3 {ratio} Normal 0.9-1.6 [facility] ([place]) Comment on above: Performed By: #### C BC, GFR, ANEU, ADIFF, PBNP, CMP #### [place] [address] ALP [Catalytic activity/Vol] 112 U/L Normal 38-126 [facility] ([place]) Comment on above: Performed By: #### C BC, GFR, ANEU, ADIFF, PBNP, CMP #### [address] [address] ALT [Catalytic activity/Vol] 23 U/L Normal 10-49 [facility] ([place]) Comment on above: Performed By: #### C BC, GFR, ANEU, ADIFF, PBNP, CMP #### [address] [address] AST [Catalytic activity/Vol] 21 U/L Normal 8-34 [facility] ([place]) Comment on above: Performed By: #### C BC, GFR, ANEU, ADIFF, PBNP, CMP #### [address] [address] Bili Total 0.70 mg/dL Normal 0.20-1.20 [facility] ([place]) Comment on above: Result Comment: Use of this assay is not recommended for patients undergoing treatment with eltrombopag due to the potential for falsely elevated results. Performed By: #### C BC, GFR, ANEU, ADIFF, PBNP, CMP #### [place] [id number] BUN/Creatinine Ratio 24.6 ratio High 10.0-22.0 [facility] ([place]) Comment on above: Performed By: #### C BC, GFR, ANEU, ADIFF, PBNP, CMP #### [address] [address] Calcium [Mass/Vol] 9.0 mg/dL Normal 8.7-10.4 [facility] ([place]) Comment on above: Performed By: #### C BC, GFR, ANEU, ADIFF, PBNP, CMP #### [address] [address] Chloride [Moles/Vol] 104 mmol/L Normal 98-110 [facility] ([place]) Comment on above: Performed By: #### C BC, GFR, ANEU, ADIFF, PBNP, CMP #### [address] [address] CO2 [Moles/Vol] 21 mmol/L Low 22-32 [facility] ([place]) Comment on above: Performed By: #### C BC, GFR, ANEU, ADIFF, PBNP, CMP #### [address] [address] Creatinine [Mass/Vol] 0.69 mg/dL Normal 0.50-1.20 [facility] ([place]) Comment on above: Performed By: #### C BC, GFR, ANEU, ADIFF, PBNP, CMP #### [address] [address] Electrolyte Balance 17.0 mEq/L High 4.0-15.0 [facility] ([place]) Comment on above: Performed By: #### C BC, GFR, ANEU, ADIFF, PBNP, CMP #### [address] [address] Globulin 2.8 G/dL Normal 1.5-3.8 [facility] ([place]) Comment on above: Performed By: #### C BC, GFR, ANEU, ADIFF, PBNP, CMP #### [place] [phone] Glucose [Mass/Vol] 127 mg/dL High 82-115 [facility] ([place]) Comment on above: Performed By: #### C BC, GFR, ANEU, ADIFF, PBNP, CMP #### [address] [address] Potassium [Moles/Vol] 4.0 mmol/L Normal 3.5-5.0 [facility] ([place]) Comment on above: Performed By: #### C BC, GFR, ANEU, ADIFF, PBNP, CMP #### [address] [address] Sodium [Moles/Vol] 142 mmol/L Normal 136-145 [facility] ([place]) Comment on above: Performed By: #### C BC, GFR, ANEU, ADIFF, PBNP, CMP #### [address] [address] Total Protein 6.5 G/dL Normal 5.7-8.2 [facility] ([place]) Comment on above: Result Comment: No te - New Reference Range in effect 20 Performed By: #### C BC, GFR, ANEU, ADIFF, PBNP, CMP #### [address] [address] Urea nitrogen [Mass/Vol] 17.0 mg/dL Normal 8.0-22.0 [facility] ([place]) Comment on above: Performed By: #### C BC, GFR, ANEU, ADIFF, PBNP, CMP #### [address] [address] LABORATORYOrdered By: SYSTEM SYSTEM on 04-22-2023 Albumin [...] Code 0.20 - 1.20 mg/dL ADM SS Globulin 2.8 G/dL Invalid Interpretation Code 1.5 - 3.8 G/dL ADM SS Protein [Mass/Vol] 6.5 G/dL Invalid Interpretation Code 5.7 - 8.2 G/dL ADM SS Troponin I.cardiac DL <= 0.01 ng/mL [Mass/Vol] 333.21 ng/L Invalid Interpretation Code 0.00 - 34.00 ng/L ADM SS LABORATORYOrdered By: Lisa Marr on 04-22-2023 Natriuretic peptide.B prohormone N-Terminal [Mass/Vol] 6059 pg/mL Invalid Interpretation Code 0 - 900 pg/mL AH Auto Chem SS PBNPon 04-22-2023 Natriuretic peptide B (Bld) [Mass/Vol] 6059 pg/mL High 0-900 [facility] ([place]) Comment on above: Result Comment: NT-p roBNP results of less than 300 pg/mL effectively rules out acute congestive heart failure with 99% negative predictive value. Performed By: #### A PTT, CBC, ANEU, ADIFF #### [address] [address] [facility] Troponin I High Sensitivity 333.21 ng/L High 0.00-34.00 [facility] ([place]) Comment on above: Result Comment: If t he High Sensitive Troponin result is below the 99th percentile value (<45 ng/L) at the first blood draw, at least two additional blood samples should be drawn before results are interpreted as negative for AMI. Performed By: #### A PTT, CBC, ANEU, ADIFF #### [address] [address] HbA1c (Bld)on 01-20-2023 Average glucose Estimated from glycated hemoglobin (Bld) [Mass/Vol] 103 mg/dL Normal [facility] Comment on above: Order Comment: Ruddy posadas Type: BLOOD SPECIMEN Ordering Facility: [facility] Address: [address] [place] [address] Result Comment: eAG: (Estimated average glucose) is a calculated value from HgbA1c and is product support sales representative of the average blood glucose level in the last 2-3 month period. Performed By: #### 5 [id number] #### [facility] CLIA [id number] [address] [place] [address] STATES OF [facility] HbA1c (Bld) [Mass fraction] 5.2 % Normal 4.3-5.6 [facility] Comment on above: Order Comment: Ruddy posadas Type: BLOOD SPECIMEN Ordering Facility: [facility] Address: [address] [place] [address] Result Comment: Amer ican Diabetes Association guidelines indicate that patients with HgbA1c in the range 5.7-6.4% are at increased risk for development of diabetes, and intervention by lifestyle modification may be beneficial. HgbA1c greater or equal to 6.5% is considered diagnostic of diabetes. Performed By: #### 5 5454-3 #### [facility] CLIA [id number] [address] [place], [place] [id number] [place] Colonoscopyon 12-15-2022 Colonoscopy Frank [facility] Gastrointestinal Endoscopy Patient Name: Ashley Tuttle Procedure [...] previous diet. Procedure Code(s): --- Professional --- 67597, Colonoscopy, flexible; diagnostic, including collection of specimen(s) by brushing or washing, when performed (separate procedure) 31923, 59, Moderate sedation services provided by the same physician or other qualified health direct care worker performing the diagnostic or therapeutic service that the sedation supports, requiring the presence of an independent trained observer to assist in the monitoring of the patient's level of consciousness and physiological status; initial 15 minutes of intraservice time, patient age 5 years or older [address], Moderate sedation; each additional 15 minutes intraservice time Diagnosis Code(s): --- Professional --- K64.8, Other hemorrhoids Z86.010, Personal history of colonic polyps Z12.11, Encounter for screening for malignant neoplasm of colon CPT copyright 2020 [employer]. All rights r (more content not included)... Normal [facility] HISTORY PHYSICALon 3 HISTORY PHYSICAL HNO ID: [id number] Author: Thelma Fenton MD Service: General Surgery [...] entered by the nurse and reviewed by me Nursing Notes: Gila Allen 11/17/2022 2:51 PM [...] denies arth (more content not included)... Normal [facility] NURSING PROGon 12-15-2022 NURSING PROG HNO ID: [id number] Author: Geetha Messina RN Service: ? Author Type: Registered Nurse Type: Nursing Progress Note Filed: 12/15/2022 12:21 PM Note Text: Arrived in phase II via cart left lateral position, eyes open to verbal stimuli, skin warm and dry, alert to self and event. Abdomen soft and non distended, denies pain or nausea. Resting comfortably on left side. Normal [facility] CNOVon 11-17-2022 CNOV Office Visit (GENSWS ) ASHLEY TUTTLE ([id number]) 1955 F Date Time Provider Department 11/17/22 2:45 PM THELMA FENTONSWS During your visit today, we recorded the [...] If you do not have a responsible courtesy car driver (family member or friend) with you [...] and electro (more content not included)... Normal [facility] Hemoglobin A1con 11-28-2021 Glucose [Mass/Vol] 105 mg/dL Normal [facility] Comment on above: Performed By: #### H BA1C #### [facility] Routine Lab [address] [place], [place] [address] HbA1c (Bld) [Mass fraction] 5.3 % Normal 4.3-5.6 [facility] Comment on above: Performed By: #### H BA1C #### [facility] Routine Lab [address] [place], [place] [id number] Hemoglobin A1con 06-02-2021 Glucose [Mass/Vol] 105 mg/dL Normal [facility] Comment on above: Performed By: #### H BA1C #### [facility] Routine Lab [address], [place] [id number] HbA1c (Bld) [Mass fraction] 5.3 % Normal 4.3-5.6 [facility] Comment on above: Performed By: #### H BA1C #### [facility] Routine Lab [address] [place], [place] [address] Vital Signs Date Time Vital Sign Value Performing Clinician Facility 05-21-2025 15:15-0400 Body temperature 97 [degF] Dr. Ld Mon MD Work Phone: 5(407)[phone] [place] [address] 05-21-2025 15:15-0400 Diastolic blood pressure 85 mm[Hg] Dr. Ld Mon MD Work Phone: 9(294)085-802376 [place] [address] 05-21-2025 15:15-0400 Heart rate 100 /min Dr. Ld Mon MD Work Phone: [facility] 05-21-2025 15:15-0400 Respiratory rate 16 /min Dr. Ld Mon MD Work Phone: [facility] 05-21-2025 15:15-0400 SaO2% (BldA) [Mass fraction] 97 % Dr. Ld Mon MD Work Phone: [facility] 05-21-2025 15:15-0400 Systolic blood pressure 155 mm[Hg] Dr. Ld Mon MD Work Phone: 9(022)326-093676 [place] [address] 05-21-2025 12:00-0400 Inhaled oxygen flow rate 1 L/min Dr. Ld Mon MD Work Phone: [facility] 05-21-2025 06:38-0400 Body height 160.[address] Ld Mon MD Work Phone: [facility] 05-21-2025 06:38-0400 Body mass index (BMI) [Ratio] 37.5 kg/m2 Dr. Ld Mon MD Work Phone: [facility] 05-21-2025 06:38-0400 Body weight [address] Ld Mon MD Work Phone: [facility] 04-25-2025 13:00-0400 Body height 162.[address] Ld Mon MD Work Phone: 5(097)005-487976 [place] [address] 04-25-2025 13:00-0400 Body mass index (BMI) [Ratio] 35.9 kg/m2 Dr. Ld Mon MD Work Phone: 4(688)342-162076 [place] [address] 04-25-2025 13:00-0400 Body temperature 97.5 [degF] Dr. Ld Mon MD Work Phone: [facility] 04-25-2025 13:00-0400 Body weight 95.[address] Ld Mon MD Work Phone: [facility] 04-25-2025 13:00-0400 Diastolic blood pressure 82 mm[Hg] Dr. Ld Mon MD Work Phone: [facility] 04-25-2025 13:00-0400 Heart rate 72 /min Dr. Ld Mon MD Work Phone: [facility] 04-25-2025 13:00-0400 Respiratory rate 18 /min Dr. Ld Mon MD Work Phone: [facility] 04-25-2025 13:00-0400 SaO2% (BldA) [Mass fraction] 98 % Dr. Ld Mno MD Work Phone: [facility] 04-25-2025 13:00-0400 Systolic blood pressure 168 mm[Hg] Dr. Ld Mon MD Work Phone: [facility] 04-27-2023 12:54-0400 Body temperature 98.06 [degF] DR ESTEBAN ENGLAND MD [address] [place] [address] 04-27-2023 12:54-0400 Diastolic Blood Pressure Non-Invasive [address] ESTEBAN ENGLAND MD [address] [place] [address] 04-27-2023 12:54-0400 Heart rate 90 /min DR ESTEBAN ENGLAND MD [address] [place] [address] 04-27-2023 12:54-0400 Mean blood pressure 80 mm[Hg] DR ESTEBAN ENGLAND MD [address] [place] [address] 04-27-2023 12:54-0400 Reason For Taking VItal Signs DR ESTEBAN ENGLAND MD [address] [place] [address] 04-27-2023 12:54-0400 Respiratory rate 24 /min DR ESTEBAN ENGLAND MD [address] [place] [address] 04-27-2023 12:54-0400 Systolic Blood Pressure Non-Invasive [address] ESTEBAN ENGLAND MD [address] [place] [address] 04-27-2023 08:16-0400 Heart rate 94 /min DR ESTEBAN ENGLAND MD [address] [place] [address] 04-27-2023 08:10-0400 Respiratory rate 23 /min DR ESTEBAN ENGLAND MD [address] [place] [address] 04-27-2023 08:02-0400 Body temperature 97.7 [degF] DR ESTEBAN ENGLAND MD [address] [place] [address] 04-27-2023 08:02-0400 Diastolic Blood Pressure Non-Invasive [address] ESTEBAN ENGLAND MD [address] [place] [address] 04-27-2023 08:02-0400 Heart rate 95 /min DR ESTEBAN ENGLAND MD [address] [place] [address] 04-27-2023 08:02-0400 Mean blood pressure 102 mm[Hg] DR ESTEBAN ENGLAND MD [address] [place] [address] 04-27-2023 08:02-0400 Reason For Taking VItal Signs DR ESTEBAN ENGLAND MD [address] [place] [address] 04-27-2023 08:02-0400 Respiratory rate 18 /min DR ESTEBAN ENGLAND MD [address] [place] [address] 04-27-2023 08:02-0400 Systolic Blood Pressure Non-Invasive [address] ESTEBAN ENGLAND MD [address] [place] [address] 04-27-2023 04:20-0400 Body temperature 97.7 [degF] DR ESTEBAN ENGLAND MD [address] [place] [address] 04-27-2023 04:20-0400 Diastolic Blood Pressure Non-Invasive [address] ESTEBAN ENGLAND MD [address] [place] [address] 04-27-2023 04:20-0400 Heart rate 92 /min DR ESTEBAN ENGLAND MD [address] [place] [address] 04-27-2023 04:20-0400 Mean blood pressure 78 mm[Hg] DR ESTEBAN ENGLAND MD [address] [place] [address] 04-27-2023 04:20-0400 Reason For Taking VItal Signs DR ESTEBAN ENGLAND MD [address] [place] [address] 04-27-2023 04:20-0400 Systolic Blood Pressure Non-Invasive [address] ESTEBAN ENGLAND MD [address] [place] [address] 04-27-2023 01:35-0400 Heart rate 93 /min DR ESTEBAN ENGLAND MD [address] [place] [address] 04-26-2023 15:50-0400 Heart rate 93 /min DR ESTEBAN ENGLAND MD [address] [place] [address] 04-24-2023 11:50-0400 Body height [address] ESTEBAN ENGLAND MD [address] [place] [address] 04-24-2023 11:50-0400 Body weight [address] ESTEBAN ENGLAND MD [address] [place] [address] 04-24-2023 11:50-0400 Body weight 37.11 kg/m2 DR ESTEBAN ENGLAND MD [address] [place] [address] 04-24-2023 03:33-0400 Blood Pressure Cuff Size DR ESTEBAN ENGLAND MD [address] [place] [address] 04-24-2023 03:33-[address] ESTEBAN ENGLAND MD [address] [place] [address] 04-24-2023 03:33-[address] ESTEBAN ENGLAND MD [address] [place] [address] 04-23-2023 18:28-0400 Blood Pressure Cuff Size DR ESTEBAN ENGLAND MD [address] [place] [address] 04-23-2023 18:28-[address] ESTEBAN ENGLAND MD [address] [place] [address] 04-23-2023 18:28-[address] ESTEBAN ENGLAND MD [address] [place] [address] 04-23-2023 15:48-0400 Heart rate 100 /min DR ESTEBAN ENGLAND MD [address] [place] [address] 04-23-2023 14:46-0400 Blood Pressure Cuff Size DR ESTEBAN ENGLAND MD [address] [place] [address] 04-23-2023 14:46-[address] ESTEBAN ENGLAND MD [address] 04-23-2023 14:46-[address] ESTEBAN ENGLAND MD [address] [place] [address] 04-23-2023 07:16-0400 Heart rate 105 /min DR ESTEBAN ENGLAND MD [address] [place] [address] 04-23-2023 03:06-0400 Heart rate 101 /min DR ESTEBAN ENGLAND MD [facility] 04-22-2023 17:46-0400 Body height [address] ESTEBAN ENGLAND MD [facility] 04-22-2023 17:46-0400 Body weight [address] ESTEBAN ENGLAND MD [facility] 04-22-2023 17:46-0400 Body weight 37.11 kg/m2 DR ESTEBAN ENGLAND MD [facility] 11-17-2022 14:42-0500 Body height 161.3 cm Thelma Fenton MD Work Phone: [facility] 11-17-2022 14:42-0500 Body temperature 98.8 [degF] Thelma Fenton MD Work Phone: [facility] 11-17-2022 14:42-0500 Body weight 95.25 kg Thelma Fenton MD Work Phone: [facility] 11-17-2022 14:42-0500 Diastolic blood pressure 94 mm[Hg] Thelma Fenton MD Work Phone: [facility] 11-17-2022 14:42-0500 Heart rate 74 /min Thelma Fenton MD Work Phone: [facility] 11-17-2022 14:42-0500 SaO2% (BldA) [Mass fraction] 99 % Thelma Fenton MD Work Phone: [facility] 11-17-2022 14:42-0500 Systolic blood pressure 152 mm[Hg] Thelma Fenton MD Work Phone: [facility] Encounters Encounter Date Encounter Type Care Provider Facility Start: 07-29-2025 End: 07-29-[address] Ld Mon MD Work Phone: [facility] Start: 07-29-2025 End: 07-29-[address] Bud Suazo MD -[facility] Start: 07-29-2025 End: 07-29-2025 ambulatory Bud Suazo Facility:[facility] Start: 06-25-2025 End: 06-25-[address] Ld Mon MD Work Phone: -[facility] Start: 06-25-2025 End: 06-25-[address] Bud Suazo MD -[facility] Work Phone: Start: 06-25-2025 ambulatory LD MON [facility] Start: 06-25-2025 End: 06-25-2025 ambulatory Bud Suazo Facility:[facility] Start: 05-29-2025 End: 05-29-[address] Bud Suazo MD -[facility] Work Phone: Start: 05-29-2025 End: 05-29-[address] Ld Mon MD Work Phone: -[facility] Start: 05-21-2025 Non-patient / Non-visit Dr. Bud Suazo MD -[facility] Start: 05-21-2025 End: 05-21-2025 Admission to same day surgery center Dr. Bud Suazo MD [facility] Start: 05-21-2025 End: 05-21-[address] Ld Mon MD Work Phone: [facility] Start: 04-25-2025 End: 04-25-[address] Bud Suazo MD -[facility] Work Phone: Start: 04-25-2025 End: 04-25-[address] Ld Mon MD Work Phone: [facility] Work Phone: Start: 04-22-2025 End: 04-22-2025 ambulatory LD MON [facility] Start: 03-29-2025 End: 03-29-2025 ambulatory LD MON [facility] Start: 03-27-2025 End: 03-27-2025 ambulatory ALEXANDER AREVALO [facility] Start: 02-20-2025 End: 02-20-2025 [facility] Start: 02-07-2025 End: 02-07-2025 Emergency department patient visit LD DAWN [facility] Start: 10-08-2024 End: 10-08-2024 ambulatory LD DAWN [facility] Start: 06-22-2023 End: 06-22-2023 Patient encounter procedure NATHANIEL NOVAK MD [facility] Start: 05-20-2023 ambulatory NATHANIEL NOVAK MD [facility] ty:A Start: 04-22-2023 End: 04-27-2023 Evaluation and management of inpatient CHELLE GAN MD Facility:A Start: 04-22-2023 End: 04-27-2023 Evaluation and management of inpatient DR ESTEBAN ENGLAND MD [facility] Start: 12-15-2022 End: 12-15-2022 ambulatory THELMA FENTON Facility:[facility] Start: 11-17-2022 End: 11-17-2022 ambulatory ROBERT FONG Facility:[facility] Start: 11-17-2022 End: 11-17-2022 Patient encounter procedure Thelma Fenton MD Work Phone: General Surgery Comment on above: History of colonic p olyps; Family history of colon cancer Procedures Date Procedure Procedure Detail Performing Clinician Start: 05-21-[address] Vanessa Mon MD Work Phone: Start: 10-08-2024 Urinalysis ALEXANDER HESTER Comment on above: Result Comment: URIN ALYSIS Performed By: #### 2 [id number] #### [facility],[address] [place] [address] Start: 10-23-2019 Colonoscopy Thelma Fenton MD Work Phone: History of thyroidectomy S/P thyroidectom y Dr. Ld Mon MD Work Phone: Plan of Treatment Date Care Activity Detail Author Start: 07-14-2025 DIABETES SCREEN DIABETES SCREEN [facility] Start: 05-21-2025 Anes esoph thyrd larynx trach & lymph neck 1yr ANESTH NECK ORGAN 1YR/> [facility] Start: 05-21-2025 Total thyroid lobectomy uni w/wo isthmusectomy PARTIAL REMOVAL OF THYROID [facility] Start: 05-21-2025 Patient discharge [facility] Start: 05-09-2025 Electrocardiographic procedure [facility] Start: 11-07-2022 ADVANCE DIRECTIVE DISCUSSION ADVANCE DIRECTIVE DISCUSSION [facility] Start: 11-07-2022 DEPRESSION ASSESSMENT DEPRESSION ASSESSMENT [facility] Start: 10-23-2022 Colonoscopy COLONOSCOPY [facility] Start: 10-23-2022 COLORECTAL CANCER SCREENING COLORECTAL CANCER SCREENING [facility] Start: 07-08-2022 Influenza vaccination INFLUENZA (#1) [facility] Start: 2019 BONE DENSITY BONE DENSITY [facility] Start: 2019 PNEUMOCOCCAL: 65+ (1 - PCV) PNEUMOCOCCAL: 65+ (1 - PCV) [facility] Start: 2004 SHINGRIX VACCINE (1 of 2) SHINGRIX VACCINE (1 of 2) [facility] Start: 1999 COLOGUARD (FIT-DNA) COLOGUARD (FIT-DNA) [facility] Start: [address] COLONOGRAPHY [facility] Start: 1999 FECAL OCCULT BLOOD FECAL OCCULT BLOOD [facility] Start: 1999 LIPID SCREEN LIPID SCREEN [facility] Start: 1999 SIGMOIDOSCOPY SIGMOIDOSCOPY [facility] Start: 1994 Mammography MAMMOGRAM [facility] Start: 1973 Urine microalbumin profile DTAP,TDAP,TD (1 - Tdap) [facility] Start: 1972 HEPATITIS C SCREENING HEPATITIS C SCREENING [facility] Start: [birth year]-28-1955 COVID-19 VACCINE (#1) COVID-19 VACCINE (#1) [facility] Electrocardiographic procedure [facility] End: 11-17-2023 Screening colonoscopy COLONOSCOPY SCREENING Endoscopy Routine History of colonic polyps 1 Occurrences starting 11/17/2022 until 11/17/2023 [facility] Work Phone: Comment on above: 1 Occurrences starting 11/17/2022 until 11/17/2023 T4 free measurement [facility] Thyroid stimulating hormone measurement [facility] Triiodothyronine, fr ee measurement [facility] [place] [facility] Payers Date Payer Category Payer Self-pay 2021 Unknown MMO MMO MEDICARE SUPPLEMENT [id number] 2021-Present [phone] [address] [place] [address] Indemnity [id number] 2021 Unknown [id number] 2019 Medicare MEDICARE MEDICAR E A AND B [id number] 2019-Present [phone] [address] [address] [place] [address] Medicare [id number] 2019 Medicare [id number] 1955 Unknown [id number] [id number] 1955 Unknown [id number] 2.16.840.1.809035.3.579.2.627 1954 Unknown [id number] 2.16.840.1.569469.3.579.2.651 1955 Unknown [id number] 2.16.840.1.543290.3.579.2.651 1954 Unknown [id number] 2.16.840.1.222467.3.579.2.651 1954 Unknown [id number] 2.16.840.1.085158.3.579.2.651 1954 Unknown [id number] 2.16.840.1.017204.3.579.2.651 1954 Unknown [id number] 2.16.840.1.011994.3.579.2.651 1954 Unknown [id number] 2.16.840.1.166722.3.579.2.651 Unknown [id number] Unknown [id number] 2.16.840.1.574816.3.579.2.462 Unknown [id number] 2.16.840.1.640231.3.579.2.462 Unknown [id number] 2.16.840.1.376148.3.579.2.462 Unknown [id number] 2.16.840.1.505478.3.579.2.462 Unknown [id number] 2.16840.1.337226.3.579.2.462 Unknown [id number] 2.16840.1.954170.3.579.2.462 Unknown [id number] 2.16840.1.965749.3.579.2.462 Social History Date Type Detail Facility Start: 02-02-2013 End: 05-08-2025 Tobacco smoking status GAIS Never smoked tobacco [facility] Start: 02-02-2013 Tobacco use and exposure Smokeless tobacco non-user [facility] Start: 11-17-2022 Alcohol intake Current non-dr luna of alcohol (finding) [facility] Start: 1955 Sex Assigned At Not on file [facility] Start: 1955 Sex Assigned At Female [facility] Sex Female [facility] Medical Equipment Procedure Code Equipment Code Equipment Origin al Text Equipment Identifier Dates Thyroidectomy DRESSING,SURGICE L 4x8 FDA Start: 05-21-2025 Thyroidectomy SUTURE,LIGA CLIP MED [id number] FDA Start: 05-21-2025 Thyroidectomy SUTURE,LIGA CLIP SM LT-100 FDA Start: 05-21-2025 Thyroidectomy DRESSING,SURGICE L 4x8 FDA Start: 05-21-2025 Thyroidectomy SUTURE,LIGA CLIP MED [id number] FDA Start: 05-21-2025 Thyroidectomy SUTURE,LIGA CLIP SM LT-100 FDA Start: 05-21-2025 Thyroidectomy DRESSING,SURGICE L 4x8 FDA Start: 05-21-2025 Thyroidectomy SUTURE,LIGA CLIP MED [id number] FDA Start: 05-21-2025 Thyroidectomy SUTURE,LIGA CLIP SM LT-100 FDA Start: 05-21-2025 Thyroidectomy DRESSING,SURGICE L 4x8 FDA Start: 05-21-2025 Thyroidectomy SUTURE,LIGA CLIP MED [id number] FDA Start: 05-21-2025 Thyroidectomy SUTURE,LIGA CLIP SM LT-100 FDA Start: 05-21-2025 Goals Date Patient Goal Desired Activity /State Functional Status Date Assessment Result Facility 04-27-2023 Functional Status Room check performed [facility] 04-27-2023 Functional Status 1 [facility] 04-27-2023 Functional Status Done [facility] 04-27-2023 Functional Status [facility] 04-26-2023 Functional Status [facility] 04-26-2023 Functional Status [facility] 04-25-2023 Functional Status Single level home [facility] 04-25-2023 Functional Status Spouse is semi-retired. [facility] 04-25-2023 Functional Status Morning Snack Percent 7 5 [facility] 04-24-2023 Functional Status Maintained [facility] 04-24-2023 Functional Status [facility] 04-24-2023 Functional Status [facility] 04-23-2023 Functional Status [facility] 04-22-2023 Functional Status [facility] Mental Status Date Assessment Result Facility 05-21-2025 Cognitive function Voice/Name [facility] Work Phone: 04-27-2023 Mental Status Oriented x 4 [facility] 04-27-2023 Mental Status [facility] 04-27-2023 Mental Status [facility] Clinical Notes 11-17-2022 to 05-21-2025 Note Date & Type Note Facility 05-21-2025 Consult note Note Date/Time May 21, 2025 11:20am [facility] Medical Records Department [address] [facility] [place] [address] Anesthesia Postop Eval I 05/21/25 1118 MR#: [id number] Acct: [id number] Name: ASHLEY TUTTLE Rep #:[id number] : 1955 69 From: Miri PATEL PCP: Dr. Ld Mon MD Status:REG S DC Y Race: C Location: [place] [address] Anesthesia: Postop Eval I Current Vital Signs Temperature: 97 F Pulse Rate: 94 Blood Pressure: 147/72 Respiratory Rate: 16 Pulse Ox: 95 Oxygen Delivery Method: Nasal Cannula Oxygen Flow Rate (L/min): 3 Assessment Airway patent: Yes Spontaneous unlabored respirations: Yes Mental status: Awake and Calm nausea: No Vomiting: No Anesthesia Complication: No Fluid Hydration Crystalloid volume administer (ml): 1,400 Total IV fluid infused: 1,400 Progress Note Anesthesia document: Postop Eval 1 completed: Yes 05/21/25 1120 <Electronically signed by Miri Sherman CRNA> Date _ Miri Sherman CRNA Cosigner Signature: Date CC: ~ Signed [facility] Work Phone: 1(663) 366-368707-15-2025 Consult note [facility] Medical Records Department [address] [facility] [place] [address] Anesthesia Postop Eval I 05/21/25 1118 MR#: [id number] Acct: [id number] Name: ASHLEY TUTTLE Rep #:[id number] : 1955 69 From: Miri PATEL PCP: Dr. Ld Mon MD Status:REG S DC Y Race: C Location: [place] [address] Anesthesia: Postop Eval I Current Vital Signs Temperature: 97 F Pulse Rate: 94 Blood Pressure: 147/72 Respiratory Rate: 16 Pulse Ox: 95 Oxygen Delivery Method: Nasal Cannula Oxygen Flow Rate (L/min): 3 Assessment Airway patent: Yes Spontaneous unlabored respirations: Yes Mental status: Awake and Calm nausea: No Vomiting: No Anesthesia Complication: No Fluid Hydration Crystalloid volume administer (ml): 1,400 Total IV fluid infused: 1,400 Progress Note Anesthesia document: Postop Eval 1 completed: Yes 05/21/25 1120 FOOT SPECIALIST> Date _ Miri Dotterer FOOT SPECIALIST Cosigner Signature: Date CC: ~ Signed [facility]07-15-2025 Consult note Author Eleno Cerrato [facility] Note Date/Time May 21, 2025 7:06 am [facility] Medical Records Department [address] [place] [address] Pre-Anesthesia Evaluation 05/21/25 0701 MR#: [id number] Acct: [id number] Name: ASHLEY TUTTLE Rep #:[id number] : 1955 69 From: Eleno Cerrato MD PCP: Dr. Ld Mon MD Status:REG S DC Y Race: C Location: [place] [address] ASA Classification* ASA Classification ASA Classification: 2 Assessment & Plan Anesthesia* Anesthesia Assessment Anesthesia Assessment: Discussed sedation and/or anesthesia options, risks, benefits, and alternatives with patient/parents/legal guardian/POA. Questions invited. The patient/parents/legal guardian/POA seems to understand and agrees to proceedwith anesthesia plan. Reviewed the physical assessment, medical history, allergy history and patient home medications list prior to surgery/procedure/anesthetic and documented any changes. Performed airway and anesthesia risk assessments. Anesthesia Type Anesthesia Type: General History Source History Obtained from:: Patient and Chart Anesthesia Focused Assessment* Temperature: 97.4 F Pulse Rate: 60 Blood Pressure: 191/80 Respiratory Rate: 16 Pulse Ox: 100 Oxygen Delivery Method: Room Air Airway Assessment Mouth opens: >3 cm Mallampati Score: II Teeth Condition: Intact Neck Range of motion (ROM): Full ROM Labs Anesthesia Preop lab: CBC CHEMISTRY COAG Pre-Assessment Diagnosis/Proposed Procedure Planned Operative Procedure(s): RIGHT THYROIDECTOMY WITH ISHTHMUSECTOMY INTRAOPERATIVE NERVE MONITORING Anesthesia History Anesthesia History - marine erector: Anesthesia History - marine erector Hx Hospitalization No 05/08/25 08:00 Any Problems With Anesthesia No 05/08/25 08:00 Cholinesterase deficiency No 05/08/25 08:00 You/Your Family Experience No 05/08/25 08:00 fever (hyperthermia) with Relationship Recent Exposure to Contagious No 05/21/25 06:37 Disease Does patient have nerve No 05/08/25 08:00 stimulator Patient instructed to have device shut off --Does patient have Pacemaker No 05/21/25 06:38 or ICD? When Was Last Pacemaker Check QUESTION #4 FULL TEXT: You/Your Family Experience fever (hyperthermia) with Anesthesia Last Oral Intake Last Oral intake: Last Oral Intake NPO since 02:00 05/21/25 06:38 Meds taken in AM with sips of Yes 05/21/25 06:38 water? Meds patient instructed to metoprolol 05/21/25 06:38 take am of surgery Any additional information?: Yes Meds taken in AM with sips of water?: Yes PONV PONV - marine erector: PONV - marine erector Female Yes 05/08/25 08:00 HX of Motion Sickness No 05/08/25 08:00 HX of N/V After Surgery No 05/08/25 08:00 Non-Smoker Yes 05/08/25 08:00 Duration of Surgery greater Yes 05/08/25 08:00 than 60 minutes Number of Risk Factors 3 05/08/25 08:00 PONV Score Moderate Risk 05/08/25 08:00 Height & Weight Height & Weight: Anesthesia: Height & Weight Height 5 ft 3 in 05/21/25 06:38 Weight: 96 kg 05/21/25 06:38 Body Mass Index (BMI) 37.5 05/21/25 06:38 Respiratory Assessment Respiratory Assessment - marine erector: Respiratory Tract Infection Hx - marine erector Hx Respiratory Tract Infection No 05/08/25 08:00 STOP Sleep Apnea STOP Sleep Apnea - marine erector: STOP Sleep Apnea - marine erector Hx Hypertension Yes: CONTROLLED WITH MEDS 05/08/25 08:00 Hx Sleep Apnea No 05/08/25 08:00 CPAP BIPAP Do you snore loudly (louder No 05/08/25 08:00 than talking or can be heard Do you often feel tired/ No 05/08/25 08:00 fatigued/ sleepy during daytime? Has anyone observed you stop No 05/08/25 08:00 breathing during sleep? STOP Results Negative 05/08/25 08:00 QUESTION #5 FULL TEXT : Do you snore loudly (louder than talking or can be heard through closed doors)? 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 Specify any problems Hx of Preganancy in last 3 No 05/08/25 08:00 Months Nurse Filling Out Transfusion [email or web address] 05/08/25 08:00 & Questions: Date: 05/08/25 05/08/25 08:00 Time: 08:05/08/25 08:00 Patient unable to answer at this time (ie. 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Type clobetasol 0.05 % eye 1 drp ophthalmic (eye) QODAY 04/25/25 05/19/25 History drops,suspension fluticasone propionate 50 1 spray intranasal QDAY 04/0705/20/25 History mcg/actuation nasal spray,suspension (Flonase Allergy Relief) ivermectin 1 %-metronidazole 1 1 ea topical DAILY PRN 04/25/25 05/20/25 History %-niacinamide 4 % topical gel lisinopril 10 1 tab PO QDAY 04/25/2505/20 History mg-hydrochlorothiazide 12.5 mg tablet meclizine 25 mg tablet 25 mg PO 4X/DAY PRN dizzines s 04/25/25 Unknown History metoprolol tartrate 50 mg tablet 50 mg PO BID 04/25/25 05/21/25 History phytosterol 300 mg-pantethine 100 4 cap PO DAILY 04/2505/20/25 History mg capsule (CholestOff Complete) Allergy/AdvReac Type Severity Reaction Status Date / Time No Known Allergies Allergy Verified 05/08/25 07:57 Family History Mother Thyroid disorder Thyroid cancer Sister Thyroid disorder Brother Thyroid disorder Sister Thyroid disorder Surgical History Status post Mohs micrographic surgery for basal cell carcinoma (BCC) Hx laparoscopic cholecystectomy Social History Smoking Status: Never smoker alcohol intake: never substance use type: does not use Review of Systems (Anesthesia) ROS Narrative System reviewed and no additional complaints, except as documented. 05/21/25 0706 <Electronically signed by Eleno sahni MD> Date _ Eleno Cerrato MD Cosigner Signature: Date CC: ~ Signed [facility] Work Phone: 1(832) 279-444107-15-2025 History and physical note Author Bud Suazo [facility] Note Date/Time May 21, 2025 6:54 am [facility] Medical Records Department [address] [place] [address] History & Physical Exam 05/21/25 0653 MR#: [id number] Acct: [id number] Name: ASHLEY TUTTLE Rep #:[id number] : 1955 69 From: Bud Luke PCP: Dr. Ld Mon MD Status:REG S DC Location: [place] [address] History and Physical Date of Admission: 05/21/25 Date of Service: 04/25/25 MR#: [id number] Acct: [id number] Name: ASHLEY TUTTLE Rep #: [id number] : 1955 Provider: Dr. Bud Suazo MD Age/Sex: 69/F Location: [facility] Status: Signed Intake Vital Signs 04/25/2513:00 Height 5 ft 4 in Weight: 209 [...] Known Allergies Allergy (Unverified 04/25/25 12:37) Medications ?Medication ?Instructions ?Recorded ?Confirmed ?Type clobetasol 0.05 % eye 1 drp ophthalmic (eye) BID 04/25/2504/07 History drops,suspension fluticasone propionate 50 1 spray intranasal QDAY 04/25/25 5 History mcg/actuation nasal spray,suspension (Flonase Allergy Relief) ivermectin 1 %-metronidazole 1 ea topical 04/25/25 04/25/25 History %-niacinamide 4 % topical gel lisinopril 10 1 tab PO QDAY 04/25/25 04/25/25 History mg-hydrochlorothiazide 12.5 mg tablet meclizine 25 mg tablet 25 mg PO 4X/DAY PRN 04/25/25 04/25/25 Hi story metoprolol tartrate 50 mg tablet 50 mg PO BID 04/25/25 04/25/25 History phytosterol 300 mg-pantethine 100 cap PO 04/25/25 [...] Ghada Burnette LPN) Mother Thyroid disorder Thyroid cancerSister Thyroid disorderBrother Thyroid disorderSister Thyroid disorder Social History (Updated 04/25/25 @ 12:37 by Ghada Burnette LPN) Smoking Status: Never smoker alcohol intake: never substance use type: does not use HPI HPI HPI: Patient is a 69-year-old female who presents for evaluation of a newly diagnosedright thyroid nodule. They are referred for surgical consultation from Dr. Mon. This was discovered incidentally during a workup on 02/08/2025 for patientdiagnosis of bronchopneumonia. They do not experience difficulty [...] x 1.6 cm. Within this lobe radiology identifieda nodule measuring 2 subcentimeter lesions that were rated TI-RADS 2 and TI-RADS4 by their sonographic appearance. An FNA has been performed of the dominant right thyroid nodule and final Afirma testing returned "suspicious". Other tests include: TSH: 2.41 (10/08/2024) ROS [...] of breath, No sleep apnea, No cough, No COPD, No asthma, No emphysema and No wheezing Gastro Gastrointestinal: No abdominal pain, No nausea or vomiting, No diarrhea, No constipation, No blood in stool, No acid reflux, No hemorrhoids, No ulcers, No gallbladder problem and No black,tarry stools Jf Hematologic: No blood thinners, No blood disorders, No bleeding, No anemia and Yes blood clots Neuro Neurologic: No numbness, No tingling and No weakness Exam Const General: cooperative, comfortable and anxious Nutritional Appearance: well nourished Orientation: alert, awake and oriented x3 Neck Other: Supple neck with palpable right thyroid nodule. Nodule is nontender on exam. Do not palpate any cervical lymphadenopathy. Ultrasound exam was performed the patient's right neck and thyroid is readily visualized with nodule as described. I confirmed the dimensions from the index imaging. I can also confirm that I definitively see the inferior pole of the right thyroid lobe. Assessment and Plan Assessment and Plan (1) Thyroid nodule: Status: Acute Comment: Patient is 69-year-old female make surgical consultation related to an incidentally discovered right thyroid nodule has undergone testing with FNA biopsy resulting Afirma "suspicious" designation. Patient appears asymptomatic from both an endocrine and compressive standpoint. I had a nice discussion withpatient regarding her personal clinical scenario and the surgical options of total thyroidectomy versus thyroid lobectomy. I shared that she met criteria for the latter based on 2015 MAHENDRA guidelines and that this would be my recommendation for her. However, I qualify this recommendation stating that occasionally there is a discordance between what is identified as the nodule dimensions on imaging versus the microscopic dimensions given by pathology on final exam postoperatively. I stated, therefore, that there could be a risk of needing to pursue completion thyroidectomy. As I conducted this conversation I shared the procedure specific risks of hypoparathyroidism and recurrent laryngeal nerve injury. Hand drawings were used to illustrate relevant anatomy. I discussed the proportional increase or decrease in risk depending on the degree of surgery. I also shared the measures that I employed to try to minimize his risk with loupe magnification and intraoperative nerve monitoring. Patient appeared to understand the discussion and confirmed that the drawings were beneficial to her understanding. Ultimately she excepted my recommendationand we will plan for thyroid lobectomy with isthmusectomy using intraoperative neuromonitoring at our mutual earliest convenience. Plan: Thyroid lobectomy with isthmusectomy using intraoperative nerve monitoring. Procedure to be planned for as a surgical outpatient disposition. I have examined the patient and the H&P has been reviewed. There are no clinicalchanges since date of exam. Patient has a number of questions related to procedural and postprocedural expectations. These were answered to his satisfaction. Consents were confirmed. Proceed to operating room for right thyroid lobectomy with isthmusectomy using intraoperative neuromonitoring as scheduled. 05/21/25 0654 <Electronically signed by Bud Suazo MD> Cosigner Signature (if applicable): CC: Dr. Bud Suazo MD; Dr. Ld Mon MD~ Signed [facility] Work Phone: 1(453) 534-306107-15-2025 Consult note [facility] Medical Records Department [address] [place] [address] Pre-Anesthesia Evaluation 05/21/25700 MR#: [id number] Acct: [id number] Name: ASHLEY TUTTLE Rep #:[id number] : 1955 69 From: Eleno Cerrato MD PCP: Dr. Ld Mon MD Status:REG S DC Y Race: C Location: [place] [address] ASA Classification* ASA Classification ASA Classification: 2 Assessment & Plan Anesthesia* Anesthesia Assessment Anesthesia Assessment: Discussed sedation and/or anesthesia options, risks, benefits, and alternatives with patient/parents/legal guardian/POA. Questions invited. The patient/parents/legal guardian/POA seems to understand and agrees to proceedwith anesthesia plan. Reviewed the physical assessment, medical history, allergy history and patient home medications list prior to surgery/procedure/anesthetic and documented any changes. Performed airway and anesthesia risk assessments. Anesthesia Type Anesthesia Type: General History Source History Obtained from:: Patient and Chart Anesthesia Focused Assessment* Temperature: 97.4 F Pulse Rate: 60 Blood Pressure: 191/80 Respiratory Rate: 16 Pulse Ox: 100 Oxygen Delivery Method: Room Air Airway Assessment Mouth opens: >3 cm Mallampati Score: II Teeth Condition: Intact Neck Range of motion (ROM): Full ROM Labs Anesthesia Preop lab: CBC CHEMISTRY COAG Pre-Assessment Diagnosis/Proposed Procedure Planned Operative Procedure(s): RIGHT THYROIDECTOMY WITH ISHTHMUSECTOMY INTRAOPERATIVE NERVE MONITORING Anesthesia History Anesthesia History - marine erector: Anesthesia History - marine erector Hx Hospitalization No 05/08/25 08:00 Any Problems With Anesthesia No 05/08/25 08:00 Cholinesterase deficiency No 05/08/25 08:00 You/Your Family Experience No 05/08/25 08:00 fever (hyperthermia) with Relationship Recent Exposure to Contagious No 05/21/25 06:37 Disease Does patient have nerve No 05/08/25 08:00 stimulator Patient instructed to have device shut off --Does patient have Pacemaker No 05/21/25 06:38 or ICD? When Was Last Pacemaker Check QUESTION #4 FULL TEXT: You/Your Family Experience fever (hyperthermia) with Anesthesia Last Oral Intake Last Oral intake: Last Oral Intake NPO since 02:00 07/15/25 06:38 Meds taken in AM with sips of Yes 05/21/25 06:38 water? Meds patient instructed to metoprolol 05/21/25 06:38 take am of surgery Any additional information?: Yes Meds taken in AM with sips of water?: Yes PONV PONV - marine erector: PONV - marine erector Female Yes 05/08/25 08:00 HX of Motion Sickness No 05/08/25 08:00 HX of N/V After Surgery No 05/08/25 08:00 Non-Smoker Yes 05/08/25 08:00 Duration of Surgery greater Yes 05/08/25 08:00 than 60 minutes Number of Risk Factors 3 05/08/25 08:00 PONV Score Moderate Risk 05/08/25 08:00 Height & Weight Height & Weight: Anesthesia: Height & Weight Height 5 ft 3 in 05/21/25 06:38 Weight: 96 kg 05/21/25 06:38 Body Mass Index (BMI) 37.5 05/21/25 06:38 Respiratory Assessment Respiratory Assessment - marine erector: Respiratory Tract Infection Hx - marine erector Hx Respiratory Tract Infection No 05/08/25 08:00 STOP Sleep Apnea STOP Sleep Apnea - marine erector: STOP Sleep Apnea - marine erector Hx Hypertension Yes: CONTROLLED WITH MEDS 05/08/25 08:00 Hx Sleep Apnea No 05/08/25 08:00 CPAP BIPAP Do you snore loudly (louder No 05/08/25 08:00 than talking or can be heard Do you often feel tired/ No 05/08/25 08:00 fatigued/ sleepy during daytime? Has anyone observed you stop No 05/08/25 08:00 breathing during sleep? STOP Results Negative 05/08/25 08:00 QUESTION #5 FULL TEXT : Do you snore loudly (louder than talking or can be heard through closeddoors)? 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 Specify any problems Hx of Preganancy in last 3 No 05/08/25 08:00 Months Nurse Filling Out Transfusion [email or web address] 05/08/25 08:00 & Questions: Date: 05/08/25 05/08/25 08:00 Time: 08:05/08/25 08:00 Patient unable to answer at this time (ie. 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Type clobetasol 0.05 % eye 1 drp ophthalmic (eye) QODAY 04/25/25 05/19/25 History drops,suspension fluticasone propionate 50 1 spray intranasal QDAY 04/0705/20/25 History mcg/actuation nasal spray,suspension (Flonase Allergy Relief) ivermectin 1 %-metronidazole 1 1 ea topical DAILY PRN 04/25/25 05/20/25 History %-niacinamide 4 % topical gel lisinopril 10 1 tab PO QDAY 04/25/2505/20 History mg-hydrochlorothiazide 12.5 mg tablet meclizine 25 mg tablet 25 mg PO 4X/DAY PRN dizzines s 04/25/25 Unknown History metoprolol tartrate 50 mg tablet 50 mg PO BID 04/25/25 05/21/25 History phytosterol 300 mg-pantethine 100 4 cap PO DAILY 04/2505/20/25 History mg capsule (CholestOff Complete) Allergy/AdvReac Type Severity Reaction Status Date / Time No Known Allergies Allergy Verified 05/08/25 07:57 Family History Mother Thyroid disorder Thyroid cancer Sister Thyroid disorder Brother Thyroid disorder Sister Thyroid disorder Surgical History Status post Mohs micrographic surgery for basal cell carcinoma (BCC) Hx laparoscopic cholecystectomy Social History Smoking Status: Never smoker alcohol intake: never substance use type: does not use Review of Systems (Anesthesia) ROS Narrative System reviewed and no additional complaints, except as documented. 05/21/25 0706 kaitlyn DAWN> Date _ Eleno Cerrato MD Cosigner Signature: Date CC: ~ Signed [facility]07-15-2025 History and physical note [facility] Medical Records Department [address] [place] [address] History & Physical Exam 05/21/25 0653 MR#: [id number] Acct: [id number] Name: ASHLEY TUTTLE Rep #:[id number] : 1955 69 From: Bud Luke PCP: Dr. Ld Mon MD Status:REG S VT Location: [place] [address] History and Physical Date of Admission: 05/21/25 Date of Service: 04/25/25 MR#: [id number] Acct: [id number] Name: ASHLEY TUTTLE Rep #: [id number] : 1955 Provider: Dr. Bud Suazo MD Age/Sex: 69/F Location: [facility] Status: Signed Intake Vital Signs 04/25/2513:00 Height 5 ft 4 in Weight: 209 [...] Known Allergies Allergy (Unverified 04/25/25 12:37) Medications ?Medication ?Instructions ?Recorded ?Confirmed ?Type clobetasol 0.05 % eye 1 drp ophthalmic (eye) BID 04/25/2504/07 History drops,suspension fluticasone propionate 50 1 spray intranasal QDAY 04/25/25 5 History mcg/actuation nasal spray,suspension (Flonase Allergy Relief) ivermectin 1 %-metronidazole 1 ea topical 04/25/25 04/25/25 History %-niacinamide 4 % topical gel lisinopril 10 1 tab PO QDAY 04/25/25 04/25/25 History mg-hydrochlorothiazide 12.5 mg tablet meclizine 25 mg tablet 25 mg PO 4X/DAY PRN 04/25/25 04/25/25 Hi story metoprolol tartrate 50 mg tablet 50 mg PO BID 04/25/25 04/25/25 History phytosterol 300 mg-pantethine 100 cap PO 04/25/25 [...] Ghada Burnette LPN) Mother Thyroid disorder Thyroid cancerSister Thyroid disorderBrother Thyroid disorderSister Thyroid disorder Social History (Updated 04/25/25 @ 12:37 by Ghada Burnette LPN) Smoking Status: Never smoker alcohol intake: never substance use type: does not use HPI HPI HPI: Patient is a 69-year-old female who presents for evaluation of a newly diagnosedright thyroid nodule. They are referred for surgical consultation from Dr. Mon. This was discovered incidentally during a workup on 02/08/2025 for patientdiagnosis of bronchopneumonia. They do not experience difficulty with swallowing. They do not complain of a new cough. They do notappreciate new voice changes. They did have a history of snoring/sleep apnea. Additionally, their weight has been stable and they do not have a history of weight gain/loss or aninability to lose despite intentional effort. There is [...] x 1.6 cm. Within this lobe radiology identifieda nodule measuring 2 subcentimeter lesions that were rated TI-RADS 2 and TI-RADS4 by their sonographic appearance. An FNA has been performed of the dominant right thyroid nodule and final Afirma testing returned "suspicious". Other tests include: TSH: 2.41 (10/08/2024) ROS [...] of breath, No sleep apnea, No cough, No COPD, No asthma, No emphysema andNo wheezing Gastro Gastrointestinal: No abdominal pain, No nausea or vomiting, No diarrhea, No constipation, No blood in stool, No acid reflux, No hemorrhoids, No ulcers, No gallbladder problem and No black,tarry stools Jf Hematologic: No blood thinners, No blood disorders, No bleeding, No anemia and Yes blood clots Neuro Neurologic: No numbness, No tingling and No weakness Exam Const General: cooperative, comfortable and anxious Nutritional Appearance: well nourished Orientation: alert, awake and oriented x3 Neck Other: Supple neck with palpable right thyroid nodule. Nodule is nontender on exam. Do not palpate any cervical lymphadenopathy. Ultrasound exam was performed the patient's right neck and thyroid is readilyvisualized with nodule as described. I confirmed the dimensions from the index imaging. I can also confirm that I definitively see the inferior pole of the right thyroid lobe. Assessment and Plan Assessment and Plan (1) Thyroid nodule: Status: Acute Comment: Patient is 69-year-old female make surgical consultation related to an incidentally discovered right thyroid nodule has undergone testing with FNA biopsy resulting Afirma "suspicious" designation. Patient appears asymptomatic from both an endocrine and compressive standpoint. I had a nice discussion withpatient regarding her personal clinical scenario and the surgical options of total thyroidectomy versus thyroid lobectomy. I shared that she met criteria for the latter based on 2015 MAHENDRA guidelines and that this would be my recommendation for her. However, I qualify this recommendation statingthat occasionally there is a discordance between what is identified as the nodule dimensions on imaging versus the microscopic dimensions given by pathology on final exam postoperatively. I stated, therefore, that there could be a risk of needing to pursue completion thyroidectomy. As I conducted this conversation I shared the procedure specific risks of hypoparathyroidism and recurrent laryngealnerve injury. Hand drawings were used to illustrate relevant anatomy. I discussed the proportional increase or decrease in risk depending on the degree of surgery. I also shared the measures that I employed to try to minimize his risk with loupe magnification and intraoperative nerve monitoring. Patient appeared to understand the discussion and confirmed that the drawings were beneficial to her understanding. Ultimately she excepted my recommendationand we will plan for thyroid lobectomy with isthmusectomy using intraoperative neuromonitoring at our mutual earliest convenience. Plan: Thyroid lobectomy with isthmusectomy using intraoperative nerve monitoring. Procedure to be plannedfor as a surgical outpatient disposition. I have examined the patient and the H&P has been reviewed. There are no clinicalchanges since date of exam. Patient has a number of questions related to procedural and postprocedural expectations. These were answered to his satisfaction. Consents were confirmed. Proceed to operating room for right thyroid lobectomy with isthmusectomy using intraoperative neuromonitoring as scheduled. 05/21/25 0654 Cosigner Signature (if applicable): CC: Dr. Bud Suazo MD; Dr. Ld Mon MD~ Signed [facility]07-15-2025 [facility] Medical Records Department [address] [place] [address] History Physical Exam 05/21/25 0653 MR#: [id number] Acct: [id number] Name: ASHLEY TUTTLE MARTIN Rep #: [id number] : 1955 69 From: Bud Suazo MD PCP: Dr. Ld Mon MD Status:[facility] Location: [place] [address] History and Physical Date of Admission: 05/21/25 Date of Service: 04/25/25 MR#: [id number] Acct: [id number] Name: ASHLEY TUTTLE Rep #: [id number] : 1955 Provider: Dr. Bud Suazo MD Age/Sex: 69/F Location: [facility] Status: Signed Intake Vital Signs 04/25/2513:00 Height 5 ft 4 in Weight: 209 [...] % eye 1 drp ophthalmic (eye) BID 04/25/25 04/25/25 Histo ry drops,suspension fluticasone propionate 50 1 spray intranasal QDAY 04/25/25 04/25/25 History mcg/actuation nasal spray,suspension (Flonase Allergy Relief) ivermectin 1 %-metronidazole 1 ea topical 04/25/25 04/25/25 History %-niacinamide 4 % topical gel lisinopril 10 1 tab PO QDAY 04/25/25 04/25/25 History mg-hydrochlorothiazide 12.5 mg tablet meclizine 25 mg tablet 25 mg PO 4X/DAY PRN 04/25/25 04/25/25 History metoprolol tartrate 50 mg tablet 50 mg PO BID 04/25/25 04/25/25 History phytosterol 300 mg-pantethine 100 cap PO 04/25/25 [...] Ghada Burnette LPN) Mother Thyroid disorder Thyroid cancerSister Thyroid disorderBrother Thyroid disorderSister Thyroid disorder Social History (Updated 04/25/25 @ [...] thyroid nodule and final Afirma testing returned "suspicious". Other tests include: TSH: 2.41 (10/08/2024) ROS General General: No weight change, appetite, fatigue, colon cancer, breast cancer or weakness HEENT HEENT: Yes eye surgery; No difficulty swallowing, eye injury, swollen glands or hoarseness Endo Endocrine: No thyroid disease, diabetes mellitus, thyroid cancer, Hair loss, heat intolerance or cold intolerance Skin Skin: No rash or changing moles Musc Musculoskeletal: No back problems, (more content not included)...[facility]07-03-2025 Hospital Discharge instructionsAmbulatory Orders* 12 Lead EKG [CV[facility]] Time Frame: 05/09/25, Location: None Selected [facility] Work Phone: 1(238) 806-634206-19-2025 Evaluation note* Diagnosis Onset Date Resolution Status Admit Date Thyroid nodule acute April 25, 2025 12:12pm [facility] Work Phone: 1(794) 626-900206-19-2025 Evaluation note* Diagnosis Onset Date Resolution Status Admit Date Thyroid nodule acute April 25, 2025 12:12pm Follicular carcinoma of thyroid acut e May 29, 2025 9:49am History of lobectomy of thyroid acut e May 29, 2025 9:49am [facility] Work Phone: 1(502) 433-587006-19-2025 Evaluation note* Diagnosis Onset Date Resolution Status Admit Date Thyroid nodule acute April 25, 2025 12:12pm Follicular carcinoma of thyroid acut e May 29, 2025 9:49am History of lobectomy of thyroid acut e May 29, 2025 9:49am Follicular carcinoma of thyroid acut e June 25, 2025 2:27pm History of lobectomy of thyroid acut e June 25, 2025 2:27pm [facility] Work Phone: 1(271) 737-178704-03-2025 NoteDischarge Instructions Discharge Summary [address] [place] [phone] 02/07/2025 Patient: ASHLEY TUTTLE Sex: Female : 1955 Age: 69y Thank you for visiting [facility]. You have been evaluated today by Zev [...] days, dispense 5 tablet. Refills 0. Pharmacy: [facility]/pharmacy #[id number] - [address], [place] [phone]. albuterol sulfate HFA 90 mcg/actuation aerosol inhaler: Inhale 2 puff using inhaler every six to eight hours as needed for 10 days, dispense 18 gram. Refills 0. Pharmacy: [facility]/pharmacy #[id number] - [address], [place] [phone]. 1 of 15 Discharge Instructions Zithromax Z-Codey tablet (azithromycin) 250: Take 2 tablet by mouth once a day for 5 days, dispense 6tablet. Refills 0. Pharmacy: [facility]/pharmacy #[id number] - [address], [place] [phone]. Follow-up with: Ld Mon MD, [facility], Internal Medicine, Phone: [phone],[address] [facility] [address], [place] [phone]. Follow up in four. (return if problems or concerns any shortness of breath.). 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. [place] [phone] 02/07/2025 Patient: ASHLEY TUTTLE Sex: Female : 1955 Age: 69y Thank you for visiting [facility]. You have been evaluated today by Zev [...] days, dispense 5 tablet. Refills 0. Pharmacy: [facility]/pharmacy #[id number] - [address], [place] [phone]. albuterol sulfate HFA 90 mcg/actuation aerosol inhaler: Inhale 2 puff using inhaler every six to eight hours as needed for 10 days, dispense 18 gram. Refills 0. Pharmacy: [facility]/pharmacy #[id number] - [address], [place] [phone]. Zithromax Z-Codey tablet (azithromycin) 250: Take 2 tablet by mouth once a day for 5 days, dispense 6tablet. Refills 0. Pharmacy: [facility]/pharmacy #[id number] - [address], [place] [phone]. Follow-up with: Ld Mon MD, [facility], Internal Medicine, Phone: [phone],[address] [facility] [address] [place] [address]. Follow up in four. (return if problems or concerns any shortness of breath.). ADDITIONAL INFORMATION Pneumonia (Adult) Pneumonia is an infection deep in the lungs. It is in the small air sacs (alveoli). It may be caused by a virus, fungus, or bacteria. Pneumonia caused by bacteria is often treated with an antibiotic. Severe casesmay need to be treated in the hospital. Milder cases can be treated at home. Pneumonia symptoms are a lot like flu symptoms. They include fever, cough (dry or with phlegm), headache, muscle weakness, and pain. These symptomsoften get worse in the first 2 days. [...] healthcare provider about t (more content not included)...[facility]08-16-2023 Note* Exam Date Time Procedure Performing Provider Status 06/22/23 2:52 PM Echocardiogram, Adult - CV Auth (Verified) [facility] 06-21-2023 Discharge summary Date of Service 04/27/23 [...] of breath. The patient was recently in [facility] and traveled by car for too long [...] Within 5 to 7 days Where: [address] [facility] [address] [facility] [phone] Follow Up Appointments No qualifying data available. [...] DAISHA WOODWARD MD on 04/27/2023 07:22 PM [id number] Hospital Discharge instructions Patient Education 04/27/2023 14:55:58 [...] Follow these instructions at home: Medicines Take ojza-mgx-qjyuzyj and prescription medicines only as told by [...] 10/21/2001 Document Revised: 08/01/2019 Document Reviewed: 08/01/2019 [employer] Patient Education 2020 [employer]. Follow Up Care 04/22/2023 17:37:00 With:LD MON MD, Infectious Disease, Infectious Disease Group Address: [facility] [address] [facility] [phone] When:5 to 7 days [facility] 06-21-2023 Note Discharge Instructions Thank you for allowing [facility] to assist you with your healthcare needs. The following is importantdischarge information regarding your hospital visit. Your Care Team LD MON MD What to do next Follow Up Appointments Follow Up with LD MON MD, Infectious Disease, Infectious Disease Group When Within 5 to 7 days Where: [facility] [address] [facility] [phone] The Following Activity and Diet Have Been [...] medicines at the same time (including some vbkg-tif-uvwxuea medicines). Tell your doctor about all medicines [...] may report side effects to FDA at [phone]. What other drugs will affect apixaban? Sometimes it is not safe to use certain medications at the same time. Some drugs can affect your blood levels of other drugs you take, which may increase side effects or make the medications less effective. Many other drugs (including some uytt-zaq-savmzou medicines) can increase your risk of bleeding or blood clots. Tell your doctor about all medicines you have recently used, especially: any other medicines to treat or prevent blood clots; a blood thinner such as heparin or warfarin (Coumadin, Jantoven); an antidepressant; or aspirin or other NSAID (nonsteroidal anti-inflammatory drug) used emt intermediate. This list is not complete and many other drugs may affect apixaban. This includes prescription and ldfl-xkv-rnpsmvz medicines, vitamins, and herbal products. Not all [...] to ensure that the information provided by [employer]') is accurate, up-to-date, and complete, but no guarantee is made to that effect. Drug information contained herein may be time sensitive. [employer] information has been compiled for use by healthcare practitioners and consumers in the [place] and therefore [employer] does not warrant that uses outside of the [place] are appropriate, unless specifically indicated otherwise. [employer] drug information does not endorse drugs, diagnose patients or recommend therapy. [employer] drug information isan informational resource designed to [...] effective or appropriate for any given patient. [employer] does not assume any responsibility for any aspect of healthcare administered with the aid of information [employer] provides. The information contained herein is not intended to cover all possible uses, directions, precautions, warnings, drug interactions, allergic reactions, or adverse effects. If you have questions about the drugs you are taking, check with your doctor, nurse or pharmacist. Copyright 3218-6350 [employer] Version: 6.01. Revision Date: 06/30/2021. Education Materials [...] Follow these instructions at home: Medicines Take ggxq-juw-amfchpy and prescription medicines only as told by [...] 10/21/2001 Document Revised: 08/01/2019 Document Reviewed: 08/01/2019 [employer] Patient Education 2020 [employer]. Additional Information VACCINATE! IT SAVES LIVES! Members of the community who have not yet received the COVID-19 vaccine and would like to receive it can visit one of [facility] vaccine clinics. There are many vaccine clinic locations within the [facility]. For locations and available times, please visit https://gettheshot.coronavirus.[place].gov/. It is important to note that some COVID mobile vaccine clinics are held outdoors and may be canceled in rainy or stormy conditions. To learn more about pediatric vaccinations (ages 5-11), we invite you to visit the [facility] webpage. https://www.[facility].org/pages/4737-Cqlwa-Vayleyxclbx-Ftuqiwmcli-Lqlvj-Chy stions.htmlTo learn more about the COVID-19 vaccine, we invite you to visit the CDC website for a list of frequently asked questions.https://www.cdc.gov/coronavirus/2019-ncov/vaccines/faq.html [facility] Patient Portal Access Instructions: Stay connected with your healthcare team and access your personal medical information anytime with the [facility] Patient Portal. Please follow the directions below to create your [facility] account: 1.Access the email account you provided upon registration to the hospital/physician office.2.Look for an invitation email from [facility].3.Open the email and access the invitation link: AcceptInvitation to [facility].4.Fill in the required antonio to create your account. To access your account, visit [email or web address]. Click the blue button labeled "Access Patient Portal" and then log in with the username [...] who you will allowto register on the [facility] Patient Portal for access to your information. You can also access the [facility] [employer] Patient Portal on the [facility] karime. Simply click on "Patient Portal" and then log into your account. If you would like to receive a full copy of your medical records, please contact the [facility] Medical Records Department by calling [phone], Tuesday through Tuesday between 8 a.m. and [...] Call your local pharmacy or go to http://[facility].Qype/4U3Dx6f to find one close to you.3.Make use of household items: Use cat litter or old coffee grounds to dispose medications if other options arenot available. Mix your drugs with these household products, seal them in an airtight container andthrow it into the garbage. Call [facility]: [phone] to be sure your drugs can be [...] aware that I should contact my doctor. 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 Signature: Date/Time: Relationship to Patient: Witness Name/Signature: Date/Time: [id number] Note Date of Service 04/26/23 Chief Complaint [...] karime, Topical, qDay fluticasone nasal 0.05 mg/inh Vancleave 50 mcg 1 spray(s), Nostril, each, qDay fluticasone nasal 0.05 mg/inh Vancleave 50 mcg 1 spray(s), Nostril, each, BID [...] DAISHA WOODWARD MD on 04/27/2023 01:34 AM [facility] [id number] Pulmonary Progress note Date of Service 04/26/2023 [...] karime, Topical, qDay fluticasone nasal 0.05 mg/inh Vancleave 50 mcg 1 spray(s), Nostril, each, qDay [...] directed thrombolysis. 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 2. Sister history of DVT. Plan: 1. Patient has improved significantly, will be able this morning to wean her oxygen to room air, W4yvnnxynqyn 92-94%, suspect she might need oxygen at [...] NATHANIEL NOVAK MD on 04/26/2023 09:07 AM [id number] Note Date of Service 04/25/2023 Subjective Ms. [...] (Oral) HR: 93(Monitored) RR: 28 BP: 123/73 SpO2: 97% HT: 160 cm WT: 95 [...] karime, Topical, qDay fluticasone nasal 0.05 mg/inh Vancleave 50 mcg 1 spray(s), Nostril, each, qDay [...] Recent car travel from [place] back to [place] 3. History of DVT in sister, likely [...] HENRY ONEAL MD on 04/25/2023 11:09 AM [facility] HospitalTmwswiit58-15-8641 Note ORIGINAL EXAMINATION: ONE XRAY VIEW OF [...] 04/25/2023 7:41:49 AM Ordering Provider: BUD PHAM [facility] [id number] Vascular surgery Progress note Date of Service [...] karime, Topical, qDay fluticasone nasal 0.05 mg/inh Vancleave 50 mcg 1 spray(s), Nostril, each, qDay [...] PRO ALDANA MD on 04/25/2023 07:02 AM [facility] HospitalBnjskstc16-03-2932 Note ORIGINAL EXAMINATION: ONE XRAY VIEW OF [...] Sign Date: 04/25/2023 7:41:49 AM Ordering Provider: [facility]06-18-2023 Note Date of Service 04/24/23 Chief Complaint SOB Subjective Patient was seen and examined, continue to have SOB overnight, had EKOS catheter and initiation of pharmacomechanical thrombolysis today. Objective Vitals and Measurements T: 36.8 C (Oral) TMIN: 36.4 C (Oral) TMAX: 36.9 C (Oral) HR: 98(Monitored) RR: 24 BP: 112/80 SpO2:97% HT: 160 cm WT: 95 kg [...] karime, Topical, qDay fluticasone nasal 0.05 mg/inh Vancleave 50 mcg 1 spray(s), Nostril, each, qDay [...] DAISHA WOODWARD MD on 04/24/2023 11:36 PM [facility] HospitalNxacmdum36-22-0879 Note ORIGINAL EXAMINATION: ONE XRAY VIEW OF THE CHEST04/24/2023 6:20 pm CHEST ONE VIEW AP/PA COMPARISON: 04/24/2023 HISTORY: ORDERING SYSTEM PROVIDED HISTORY: Reason for Exam: pain/[id number]^ FINDINGS: Lines/Tubes: None. Interval removal of a [...] 04/24/2023 7:18:41 PM Ordering Provider: LEONA MCNAIR [facility] HospitalYycdatrd12-10-9466 Note ORIGINAL EXAMINATION: ONE XRAY VIEW OF THE CHEST04/24/2023 6:20 pm CHEST ONE VIEW AP/PA COMPARISON: 04/24/2023 HISTORY: ORDERING SYSTEM PROVIDED HISTORY: Reason for Exam: pain/[id number]^ FINDINGS: Lines/Tubes: None. Interval removal of a [...] Date: 04/24/2023 7:18:41 PM Ordering Provider: LEONA MCNAIRDel[facility] [id number] Note ORIGINAL EXAMINATION: ONE XRAY VIEW OF [...] Date: 04/24/2023 1:23:03 PM Ordering Provider: FELIPE MuñizK[facility]tering Health HamiltonLbhmhsgs83-04-2090 Note ORIGINAL EXAMINATION: ONE XRAY VIEW OF [...] Date: 04/24/2023 1:23:03 PM Ordering Provider: FELIPE HaleyThe [facility] HospitalEzcnfbta24-72-0753 Note ORIGINAL Images acquired, not reported on this accession number. [facility] [id number] Note ORIGINAL Images acquired, not reported on this accession number.[facility] 04-24-2023 Vascular surgery Consult note Date of [...] PRO ALDANA MD on 04/24/2023 10:32 AM [facility] HospitalOegrrzfx92-71-8926 Anesthesiology Consult note Patient: ASHLEY TUTTLE Age: [...] karime, Topical, qDay fluticasone nasal 0.05 mg/inh Vancleave 50 mcg 1 spray(s), Nostril, each, qDay [...] 17:33 EDT Apical Heart Rate 103 bpm AK 04/23/2023 15:48 EDT Peripheral Pulse Rate 100 bpm Respiratory Rate 22 br/min AK 04/23/2023 14:46 EDT Temperature Oral 36.7 DegC [...] 9:43 EDT Apical Heart Rate 102 bpm AK 04/23/2023 9:42 EDT Apical Heart Rate 102 bpm AK 04/23/2023 7:16 EDT Temperature Oral 36.4 DegC [...] Resp Rate H 23br/min (APR 24 07:09) FJH913 mmHg (APR 24 07:09) DBP88 mmHg (APR [...] Labs (Last four charted values) WBC 10.8(APR 16) Hgb 13.9(APR 16) Hct 40.6(APR 16) Plt 181(APR 16) Na 142(SIA 16) K 4.0(APR 16) CO2 L 21(APR 16) Cl 104(APR 16) Cr 0.69(APR 16) BUN 17.0(APR 16) Glucose H 127(APR 16) Ca 9.0(APR 16) PTT H 52.8(APR 18)H 102.1(APR 18)H 93.3(APR 17)H 59.6(APR 17) , Lab results 04/24/2023 9:57 EDT Urinary Elimination Voiding, no difficulties IV Present Present Patient Dressed In Hospital gown CHG Preoperative Wash/Wipe Day of procedure, Site specific wipe Preop Nasal Swab Povidone-Iodine NPO Status Maintained 04/24/2023 9:44 EDT Primary Pain Intensity 0 Pain Scale Type 0-10 Pain scale Nail Bed Color [place] Capillary Refill < 2 seconds Heart Rhythm [...] Facial Movement Symmetric resting/crying All Extremity Description [place], Normal for ethnicity Skin Temperature Warm Temperature All Extremities Warm Skin Description [place], Normal for ethnicity Skin Integrity Intact Skin Turgor Elastic Mucous Membrane Color [place] Mucous Membrane Description Moist Neurological Language Able to speak clearly Neurological Symptoms Fatigue Gait Steady Extremity Movement Equal Swallowing Difficulty None Characteristics of Communication Appropriate Characteristics of Speech Clear Facial Symmetry Symmetric Level of Consciousness Alert Aspiration Risk None Eye Opening Response [place] Spontaneously Best Motor Response [place] Obeys simple commands Best Verbal Response [place] Oriented Sugar Coma Score 15 SALLY Yes [...] Transport Mode Order Detail MTT with Monitor Lye Bath Operator Details Form Lye Bath Operator Details Form 04/24/2023 9:25 EDT Antecubital Left [...] Shear Daniel Potential problem Daniel Score 18 [place] Screen Daily History of Fall in Last [...] Transport Mode Order Detail MTT with Monitor Lye Bath Operator Details Form Lye Bath Operator Details Form 04/23/2023 23:55 EDT Primary Pain [...] Rate 90 bpm Respiratory Rate 23 br/min AK Systolic Blood Pressure Non-Invasive 138 mmHg Diastolic [...] Not Appropriate at this Time (Not Done) Lye Bath Operator Details Form Not Done (Not Done) 04/23/2023 23:00 EDT Urine Count 2 EA 04/23/2023 22:26 EDT Oxygen Therapy Nasal cannula 0L-6L Oxygen Flow Rate 2 Activity Status ADL Resting Standard Safety ID band on, Call device within reach High Risk Safety Room check performed Demonstrates [...] reach High Risk Safety Room check performed Demonstrates [...] Type 0-10 Pain scale Nail Bed Color [place] Capillary Refill < 2 seconds Dorsalis Pedis Pulse, Left 2+ Normal Dorsalis Pedis Pulse, Right 2+ Normal Radial Pulse, Left 2+ Normal Radial Pulse, Right 2+ Normal Leg edema Right Edema Ratin+ trace/2mm Leg edema Left Edema Ratin+ mild/4mm Cardiac Rhythm Sinus rhythm Monitoring Lead II, V1/MCL1 [place] Interval 0.18 second(s) QRS Duration 0.06 second(s) [...] Facial Movement Symmetric resting/crying All Extremity Description [place] Skin Temperature Warm Temperature All Extremities Warm Skin Description Normal for ethnicity Skin Integrity Intact Skin Turgor Elastic Mucous Membrane Color [place] Mucous Membrane Description Moist Neurological Language Able to speak clearly Neurological Symptoms Fatigue Gait Steady Extremity Movement Equal Swallowing Difficulty None Characteristics of Communication Appropriate Characteristics of Speech Clear Facial Symmetry Symmetric Level of Consciousness Alert Aspiration Risk None Eye Opening Response [place] Spontaneously Best Motor Response Sugar Obeys simple commands Best Verbal Response [place] Oriented Sugar Coma Score 15 SALLY Yes [...] Intact Skin Turgor Elastic Mucous Membrane Color [place] Mucous Membrane Description Moist 04/23/2023 13:19 EDT [...] Transport Mode Order Detail MTT with Monitor Lye Bath Operator Details Form Lye Bath Operator Details Form 04/23/2023 13:18 EDT CAM Mental [...] Alert Aspiration Risk None Eye Opening Response [place] Spontaneously Best Motor Response [place] Obeys simple commands Best Verbal Response [place] Oriented Sugar Coma Score 15 SALLY Yes [...] Type 0-10 Pain scale Nail Bed Color [place] Capillary Refill < 2 seconds Heart Sounds [...] Facial Movement Symmetric resting/crying All Extremity Description [place] Skin Temperature Warm Temperature All Extremities Warm Skin Description Normal for ethnicity Skin Integrity Intact Skin Turgor Elastic Mucous Membrane Color [place] Mucous Membrane Description Moist Sensory Perception Daniel [...] Opening Response Sugar Spontaneously Best Motor Response [place] Obeys simple commands Best Verbal Response [place] Oriented [place] Coma Score 15 SALLY Yes Strength All [...] dose (APTT) Heparin IV APTT 76.6 seconds AK Troponin I High Sensitivity 204.26 ng/L HI [...] Transport Mode Order Detail MTT with Monitor Lye Bath Operator Details Form Lye Bath Operator Details Form . Assessment and Plan [place] [employer] (ASA) physical status classification: [...] MANUEL DYER MD on 04/24/2023 10:17 AM [id number] Progress note Date of Service 04/24/23 [...] karime, Topical, qDay fluticasone nasal 0.05 mg/inh Vancleave 50 mcg 1 spray(s), Nostril, each, qDay [...] Recent car travel from [place] back to [place]. History of DVT in sister, likely [...] PRO PETERS MD on 04/24/2023 01:41 PM [id number] Note Date of Service 04/23/23 Chief Complaint [...] karime, Topical, qDay fluticasone nasal 0.05 mg/inh Vancleave 50 mcg 1 spray(s), Nostril, each, qDay [...] DAISHA WOODWARD MD on 04/24/2023 12:02 AM [id number] Pulmonary Consult note Date of Service 04/23/2023 [...] Recent car travel from [place] back to [place]. History of DVT in sister, likely [...] have asked for her disc from [facility] to be uploaded to our system to [...] PRO PETERS MD on 04/23/2023 12:20 PM [id number] History and physical note Date of Service 04/22/2023 Chief Complaint Shortness of breath, lower extremities pain History of Present Illness This is a 67-year-old female who had a past medical history of hypertension who came to the ER complaining of worsening shortness of breath. The patient was recently in [facility] and traveled by car for too long [...] ESTEBAN ENGLAND MD on 04/22/2023 06:37 PM [id number] History and physical note Date of Service 04/22/2023 Chief Complaint Shortness of breath, lower extremities pain History of Present Illness This is a 67-year-old female who had a past medical history of hypertension who came to the ER complaining of worsening shortness of breath. The patient was recently in [facility] and traveled by car for too long [...] ESTEBAN ENGLAND MD on 04/22/2023 06:37 PM [id number] History and physical note Date of Service 04/22/2023 Chief Complaint Shortness of breath, lower extremities pain History of Present Illness This is a 67-year-old female who had a past medical history of hypertension who came to the ER complaining of worsening shortness of breath. The patient was recently in [facility] and traveled by car for too long [...] ESTEBAN ENGLAND MD on 04/22/2023 06:37 PM [id number] Evaluation + Plan noteExtracted from: Title:History and [...] above 90%, ok to move prn with physician assistant certified if needed Addendum by ESTEBAN ENGLAND MD on April 22, 2023 19:00:52 EDT patient is short of breath will keep her bed rest and reevaluate in AM [facility] 02-08-2023 NoteHNO ID: [id number] Author: Maria Elena Leal RN Service: ? Author Type: Registered Nurse Type: Nursing Progress Note Filed: 12/15/2022 11:35 AM Note Text: Dr. Fenton notified of BP of 205/89. [facility]23 NoteHNO ID: [id number] Author: Maria Elena Leal RN Service: ? Author Type: Registered Nurse Type: Nursing Progress Note Filed: 12/15/2022 10:53 AM Note Text: Dr. Fenton notified of elevated BP of 200/84. [facility]al [facility]-2023 NoteHNO ID: [id number] Author: Thelma Fenton MD Service: ? Author [...] Use in the nose once daily. ivermectin/metronidazole/niaci (KISZATJHUP-REOVXPINHZIK-MKAKGG TOPICAL) Apply to affected area as needed. [...] entered by the nurse and reviewed by al Nursing Notes: Gila Allen 11/17/2022 2:51 PM [...] knee/foot trouble, denies arthritis (more content not included)...[facility]01-11-[facility]23 History of Present illness Narrative* Thelma Fenton [...] Use in the nose once daily. ivermectin/metronidazole/niaci (RLTAKKMTML-DFOYKIJIFLBI-CAPKFR TOPICAL) Apply to affected area as needed. [...] entered by the nurse and reviewed by me Nursing Notes: Gila Allen 11/17/2022 2:51 PM [...] C (98.8 F), height 161.3 cm (5' 3.5"), weight 95.3 kg (210 lb), last menstrual [...] patient was offered a surgery/procedure at a [facility] facility. The provider and patient have discussed in [...] be scheduled on 12/15/2022 for colonoscopy at [facility]. Medical Decision Making: Problems: Low: Stable chronic illness Risk: Low: Low risk from testing/treatment Medical Decision Making Level: 3 - Low Thelma Fenton MD [facility] Instructions* Patient Instructions* Thelma Fenton MD - [...] If you do not have a responsible courtesy car driver (family member or friend) with you [...] your exam. 2 10/2019 [facility] Nurse Note* Gila Alejandro - 11/17/2022 2:50 PM EST REVIEW OF [...] Colonoscopy: 10/2019 [facility]ila [facility] Diagnosis History of colonic polyps Personal history of colonic polyps Family history of colon cancer Family history of malignant neoplasm of gastrointestinal tract documented in this encounter [facility] noteNo assessment information availableCoast [facility] Work Phone: Hospital course Narrative No data available for this section [facility] Hospital Discharge instructions No data available for this section [facility] Progress note No data available for this section [facility] Reason for referral (narrative)* Outpatient Procedure (Routine) - Authorized Specialty Diagnoses / Procedures Referred By Contkarissa t Referred To Contact [facility] Diagnoses History of colonic polyps Procedures COLONOSCOPY SCREENING COLONOSCOPY FLX DX W/COLLJ SPEC WHEN Thelma Malave MD [address] [facility] [facility] [place] [address] [facility] [address] [place] [address] Referral ID Status Reason Start Date Expiration Date Visits Requested Visits Authorized [id number] Authorized Auto-Generat ed Referral 11/17/2022 11/17/2023 1 1 [facility] for referral (narrative)No reason for referral information availableUnion [facility] Services Work Phone: Summary Purpose Family History No Family History Records Found Relationship Condition Age at Onset Recorded Date/T geoff mother Disorder of thyroid Unknown Malignant neoplasm of thyroid gland Unkno wn sister Disorder of thyroid Unknown brother Disorder of thyroid Unknown Advance Directives No Advanced Directives Records Found Advance Directive Response Recorded Date/ Time Do you have a Healthcare Power of Employment Agency Manager? Yes May 08, 2025 8:00am Chief Complaint and Reason for Visit Chief Complaint Admit Date SUSPICIOUS THYROID BIOPSY April 25 12:12pm Chief Complaint Admit Date SUSPICIOUS THYROID BIOPSY April 25 12:12pm Thyroidectomy w/isthmus & IONM May 5:54am Thyroidectomy w/isthmus & IONM May 6:53am Reason for Visit Admit Date Thyroid nodule April 25, 2025 12:1 2pm Chief Complaint Admit Date SUSPICIOUS THYROID BIOPSY April 25 12:12pm Thyroidectomy w/isthmus & IONM May 5:54am Thyroidectomy w/isthmus & IONM May 6:53am Thyroidectomy 05/21/25 May 29, 2025 9: 49am Chief Complaint Admit Date SUSPICIOUS THYROID BIOPSY April 25 12:12pm Thyroidectomy w/isthmus & IONM May 5:54am Thyroidectomy w/isthmus & IONM May 6:53am Thyroidectomy 05/21/25 May 29, 2025 9: 49am 5 WK S/P THYROIDECTOMY June 25, 2025 2:27pm Reason for Visit Admit Date Thyroid nodule April 25, 2025 12:1 2pm Follicular carcinoma of thyroid May 9:49am History of lobectomy of thyroid May 9:49am Reason for Visit Admit Date Thyroid nodule April 25, 2025 12:1 2pm Follicular carcinoma of thyroid May 9:49am History of lobectomy of thyroid May 9:49am Follicular carcinoma of thyroid June 072024 2:27pm History of lobectomy of thyroid June 072024 2:27pm Additional Source Comments INFORMATION SOURCE (unrecogn ized section and content) DATE CREATED AUTHOR 11/29/2021 [facility] DATE CREATED AUTHOR AUTHOR'S ORGANIZ ATION 05/21/2023 [facility] ([place]) DATE CREATED AUTHOR AUTHOR'S ORGANIZ ATION 07/14/2023 [facility] DATE CREATED AUTHOR AUTHOR'S ORGANIZ ATION 04/28/2025 [facility] DATE CREATED AUTHOR AUTHOR'S ORGANIZ ATION 06/26/2025 [facility] DATE CREATED AUTHOR AUTHOR'S ORGANIZ ATION 08/10/2025 [facility] Source Comments (unrecognize d section and content) In the event this informatio n is protected by the Federal Confidentiality of Alcohol and Drug Abuse Patient Records regulations: The Federal rules restrict any use of the information to criminally investigate or prosecute any alcohol or drug abuse patient.[facility] Reason for Visit (unrecogniz ed section and content) Reason Comments Colon Consult Care Teams (unrecognized sec tion and content) Drill Rig Operator Relationship Specialty Start Date End Date Ld Mon MD [address] [place] [address] PCP - General 04/21/04 Team Status: Active [...] April 25, 2025 End: April 25, 2025 Team Status: Active Member Role/Relationship Status Dates Dr. Ld Mon MD Primary Care Provider Active Team Status: Inactive Member Role/Relationship Status Dates Dr. Bud Suazo MD Attending Provider Active Start: April 25, 2025 End: April 25, 2025 Dr. Ld Mon MD Primary Care Provider Active Start: April 25, 2025 End: April 25, 2025 Dr. Ld Mon MD Referring Provider Active Start: April 25, 2025 End: April 25, 2025 Team Status: Inactive Member Role/Relationship Status Dates Dr. Ld Mon MD Primary Care Provider Active Start: May 21, 2025 End: May 21, 2025 Dr. Bud Suazo MD Attending Provider Active Start: May 21, 2025 End: May 21, 2025 Dr. Bud Suazo MD Referring Provider Active Start: May 21, 2025 End: May 21, 2025 Team Status: Active Member Role/Relationship Status Dates Dr. Ld Mon MD Primary Care Provider Active Start: May 21, 2025 Dr. Bud Suazo MD Attending Provider Active Start: May 21, 2025 Dr. Bud Suazo MD Referring Provider Active Start: May 21, 2025 Dr. Bud Suazo MD Other Provider Active Sta rt: May 21, 2025 Team Status: Inactive Member Role/Relationship Status Dates Dr. Ld Mon MD Primary Care Provider Active Start: May 29, 2025 End: May 29, 2025 Dr. Ld Mon MD Referring Provider Active Start: May 29, 2025 End: May 29, 2025 Dr. Bud Suazo MD Attending Provider Active Start: May 29, 2025 End: May 29, 2025 Team Status: Active Member Role/Relationship Status Dates Dr. Ld Mon MD Primary Care Provider Active Start: June 25, 2025 Dr. Bud Suazo MD Attending Provider Active Start: June 25, 2025 Dr. Bud Suazo MD Referring Provider Active Start: June 25, 2025 Team Status: Inactive Member Role/Relationship Status Dates Dr. Ld Mon MD Primary Care Provider Active Start: June 25, 2025 End: June 25, 2025 Dr. Ld Mon MD Referring Provider Active Start: June 25, 2025 End: June 25, 2025 Dr. Bud Suazo MD Attending Provider Active Start: June 25, 2025 End: June 25, 2025 Team Status: Inactive Member Role/Relationship Status Dates Dr. Ld Mon MD Primary Care Provider Active Start: June 25, 2025 End: June 25, 2025 Dr. Bud Suazo MD Attending Provider Active Start: June 25, 2025 End: June 25, 2025 Dr. Bud Suazo MD Referring Provider Active Start: June 25, 2025 End: June 25, 2025 Team Status: Active Member Role/Relationship Status Dates Dr. Ld Mon MD Primary care physician Active Team Status: Inactive Member Role/Relationship Status Dates Dr. Bud Suazo MD Attending physician Active Start: April 25, 2025 End: April 25, 2025 Dr. Ld Mon MD Primary care physician Active Start: April 25, 2025 End: April 25, 2025 Dr. Ld Mon MD Referring Provider Active Start: April 25, 2025 End: April 25, 2025 Team Status: Inactive Member Role/Relationship Status Dates Dr. Ld Mon MD Primary care physician Active Start: May 21, 2025 End: May 21, 2025 Dr. Bud Suazo MD Attending physician Active Start: May 21, 2025 End: May 21, 2025 Dr. Bud Suazo MD Referring Provider Active Start: May 21, 2025 End: May 21, 2025 Team Status: Active Member Role/Relationship Status Dates Dr. Ld Mon MD Primary care physician Active Start: May 21, 2025 Dr. Bud Suazo MD Attending physician Active Start: May 21, 2025 Dr. Bud Suazo MD Referring Provider Active Start: May 21, 2025 Dr. Bud Suazo MD Nurse Practitioner Active Start: May 21, 2025 Team Status: Inactive Member Role/Relationship Status Dates Dr. Ld Mon MD Primary care physician Active Start: May 29, 2025 End: May 29, 2025 Dr. Ld Mon MD Referring Provider Active Start: May 29, 2025 End: May 29, 2025 Dr. Bud Suazo MD Attending physician Active Start: May 29, 2025 End: May 29, 2025 Team Status: Inactive Member Role/Relationship Status Dates Dr. Ld Mon MD Primary care physician Active Start: June 25, 2025 End: June 25, 2025 Dr. Bud Suazo MD Attending physician Active Start: June 25, 2025 End: June 25, 2025 Dr. Bud Suazo MD Referring Provider Active Start: June 25, 2025 End: June 25, 2025 Team Status: Inactive Member Role/Relationship Status Dates Dr. Ld Mon MD Primary care physician Active Start: June 25, 2025 End: June 25, 2025 Dr. Ld Mon MD Referring Provider Active Start: June 25, 2025 End: June 25, 2025 Dr. Bud Suazo MD Attending physician Active Start: June 25, 2025 End: June 25, 2025 Team Status: Inactive Member Role/Relationship Status Dates Dr. Ld Mon MD Primary care physician Active Start: July 29, 2025 End: July 29, 2025 Dr. Bud Suazo MD Attending physician Active Start: July 29, 2025 End: July 29, 2025 Dr. Bud Suazo MD Referring Provider Active Start: July 29, 2025 End: July 29, 2025 Goals (unrecognized section and content) Goals [...] BE BASED ON THE PRIMARY CLINICAL RECORDS. [employer] provides no warranty or guarantee of the accuracy or completeness of information in this document.
== END | disposition home or self-care (01) ==
PROVIDERS: PCP Internal Medicine Infectious Disease; Referring Provider Surgery; Visit Provider Surgery
DX: C73 Malignant neoplasm of thyroid gland (principal); E04.1 Nontoxic single thyroid nodule; Z90.09 Acquired absence of other part of head and neck
CPT/HCPCS: 36415; 84439; 84443; 84481

== ENCOUNTER → 2025-10-28 | Outpatient (CLI) | payer MEDICARE, OTHER, SELFPAY ==
--- OUTSIDE RECORDS SUMMARY | 2025-10-28 17:58 | XMS RPT_ITS | CCD ---
Author Organization [facility] [place] Care Team Providers Care Board Worker Name Role Phone Ld Mon MD Primary Care Provider ELIESER DAWN, DR LIN Primary Care Physician SCARLET DAWN, NATHANIEL Attending Unavailable ELVIA DAWN, CHELLE Consulting Unavailable CRISSY DAWN, MIN Attending Unavailable TOMÁS DAWN, DR ORELLANA Admitting Unavailable ELIESER DAWN, DR LIN Primary Care Unavailable WILBER BAIRES MD, THOR Consulting Unavailable JOSE DAWN, DR SEAN Ibrahim Consulting Jennifer ALDANA MD, DR PRO WINSTON Consulting Chato DYER MD, MANUEL Gonzales Consulting Unavailable PRO PETERS MD Consulting Unavailable SCARLET DAWN, NATHANIEL Consulting Unavailable THELMA FENTON Referring Unavailable THELMA EFNTON Attending Unavailable LD MON Primary Care Unavailable ROBERT FONG Referring Unavailable THELMA FENTON Attending Unavailable LD MON Primary Care Unavailable Dr. Bud Suazo MD Attending Provider Dr. Ld Mon MD Primary Care Provider Dr. Ld Mon MD Referring Provider [phone] Dr. Bud Suazo MD Referring Provider Dr. Bud Suazo MD Other Provider [phone] ALEXANDER AREVALO MD Primary Care Unavailable ALEXANDER [...] Referring Unavailable ZEV HUGGINS Primary Care Unavailable ZEV HUGGINS Attending Unavailable ZEV HUGGINS Admitting Unavailable PROVIDER, UNKNOWN Consulting Unavailable PROVIDER, [...] Dr. Ld Mon MD Primary Care Physician [phone] Dr. Bud Suazo MD Nurse Practitioner [phone] Omjavier, Sahrassstanislav Primary Care Unavailable Bud Suazo Attending Unavailable Bud Suazo Referring Unavailable Bud Suazo Attending Unavailable Omran, Yasser Primary Care Unavailable Bud Suazo Referring Unavailable Omran, Yasser Primary Care Unavailable Bud Suazo Attending Unavailable Omran, Yassstanislav Referring Unavailable Omran, Yasser Primary Care Unavailable Bud Suazo Attending Unavailable Omran, Yasser Referring Unavailable Bud Suazo Admitting Unavailable Omran, Yasser Primary Care Unavailable Bud Suazo Attending Unavailable Bud Suazo Referring Unavailable Bud Suazo Consulting Unavailable Bud Suazo Attending Unavailable Omran, Yasser Primary Care Unavailable Bud Suazo Referring Unavailable Omran, Yasser Primary Care Unavailable Omjavier, Ld Referring Unavailable Bud Suazo Attending Unavailable Bernard Hargrove Attending Unavailable Ld Mon Referring Unavailable Ld Mon Primary Care Unavailable Ld Mon Primary Care Unavailable Bud Suazo Attending Unavailable Bud Suazo Referring Unavailable Medications Current Medications Medication Drug Class(es) [...] = 1 tab(s), Oral, 1st dose location: [place] [address], 04/22/23 18:20:00 EDT Start Date: 04/27/23 Stop Date: 04/27/23 Status: Completed Start: 10-12-2022 take 1 tablet by urmila th twice daily metoprolol tartrate, short acting, (LOPRESSOR) 50 mg tablet Take 50 mg by mouth twice daily. 0 10/12/2022 Active take 1 tablet by urmila twice daily, then take 1 tablet by [...] Start: 04-25-2025 take 1 capsule by mo [facility] once daily Phytosterol-Pantethine (Cholestoff Complete) 300-100 mg capsule Active 4 NMA PO DAILY April 25, 2025 12:00am Start: 04-25-2025 Phytosterol-Pa ntethine (Cholestoff Complete) 300-100 mg capsule Active NMA PO April 25, 2025 12:00am phytosterol/pantethine (CHOLESTOFF COMPLETE ORAL) (1 source) phytosterol/pant ethine (CHOLESTOFF COMPLETE ORAL) Take by mouth once daily. 0 Active Comment on above: Take by mouth once d aily. polyethylene glycol 3350 [id number] mg / potassium chloride 2970 mg / sodium bicarbonate 6740 mg / sodium chloride 5860 mg / sodium sulfate 47877 mg powder for oral solution (1 source) Osmotic Laxative Start: 023 End: peg 3350-Electrolytes (GOLYTELY) 236-22.74-6.74 -5.86 gram suspension [...] thyroid ultrasound to evaluate for structural disease. Complications of surgical procedures or medical care (1 source) Postprocedural hypothyroidism; Translations: [Postprocedural hypothyroidism] Onset: 5 Chronic Diabetes mellitus without complication (1 source) Hyperglycemia, [...] undergone testing with FNA biopsy resulting Afirma suspicious designation. Patient appears asymptomatic from both an [...] Test Name Value Interpretation Reference Range Facility Endocrinology Visit Reporton 08-29-2025 Endocrinology Visit Report [facility] [address] [place] [address] OFFICE VISIT Date of Service: 08/29/25 MR#: [id number] Acct: [id number] Name: ASHLEY TUTTLE Rep #: [id number] : 1955 Provider: Carlitos Jack Age/Sex: 69/F Location: [facility] Status: Signed Intake Vital Signs 05/21/25 06:38 08/29/25 15:40 Height 5 ft 3 in 5 ft 3 in Weight: 214 lb BMI 37.9 BP 181/95 H Blood Pressure Location Rt brachial Pulse 70 Pulse Source Monitor Pulse Oximetry (%) 98 Oxygen Delivery Method room air Intake Visit Reasons: Thyroid Cancer Chief Complaint: Thyroid cancer Is patient in pain?: No Allergies No Known Allergies Allergy (Verified 08/29/25 15:42) Medications ???Medication ???Instructions ???Recorded ???Confirmed ???Type fluticasone propionate 50 1 spray intranasal QDAY 04/25/25 1 History mcg/actuation nasal spray,suspension (Flonase Allergy Relief) ivermectin 1 %-metronidazole 1 1 ea topical DAILY PRN 04/25/25 History %-niacinamide 4 % topical gel lisinopril 10 1 tab PO QDAY 04/25/25 08/29/25 Hi story mg-hydrochlorothiazide 12.5 mg tablet meclizine 25 mg tablet 25 mg PO 4X/DAY PRN dizziness 04/0708/29/25 History metoprolol tartrate 50 mg tablet 50 mg PO BID 04/25/25 08/29/25 His tory clobetasol 0.05 % scalp solution topical QDAY PRN 08/29/25 08/29/25 History levothyroxine 50 mcg tablet 50 mcg PO QDAY 5 weeks #90 tabs 08/29/25 Rx (Levoxyl) Have you fallen in the past year?: No PFSH Medical History (Updated 08/30/25 @ 08:[address] Bernard Hargrove MD) Postoperative primary hypothyroidism Papillary thyroid carcinoma Wears glasses History of steroid therapy High cholesterol Vertigo Non-smoker Surgical procedure on varicose vein planned DVT (deep venous thrombosis) Pulmonary embolism Cataract Thyroid nodule Surgical History S/P thyroidectomy Status post Mohs micrographic surgery for basal cell carcinoma (BCC) Hx laparoscopic cholecystectomy Family History Mother Thyroid disorder Thyroid cancer Sister Thyroid disorder Brother Thyroid disorder Sister Thyroid disorder Social History Smoking Status: Never smoker alcohol intake: never substance use type: does not use HPI HPI Chief Complaint: Thyroid cancer Details: ASHLEY UTTTLE, is a 69 F who presents to the office today for evaluation and management of thyroid cancer. 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 The nodule was 34 x 19 x 22 mm. Ultrasound shows a 9 x 6 x 9 TR 4 nodule and a 5 x 4 x 5 mm TR 2 nodule. She was started on levothyroxine for a mildly elevated TSH post operatively. She is feeling well. ROS Const Constitutional: No fatigue, weight change or change in appetite Eyes Eyes: No change in vision ENT ENT: No dizziness/vertigo or difficulty swallowing Cardio Cardiology: No chest pain at rest, chest pain with exertion, shortness of breath or palpitations Musc Musculoskeletal: No abnormal gait, joint pain, numbness or tingling Neuro Neurology: No abnormal gait, memory loss, numbness or tingling Psych Psychiatric: No change in appetite, No memory loss and No Thoughts of harming yourself/Others Resp Respiratory: No cough, chest congestion or shortness of breath Gastro GI: No abdominal pain, constipation, diarrhea or difficulty swallowing Genitourinary-Female: No burning urination Skin Skin: No itchy eyes or wounds Endo Endocrine: No fatigue or weight change Aller/Imm Allergy/Immunologic: No itchy eyes Exam Const General: cooperative, healthy appearing, comfortable, no acute distress, well developed and not cushingoid Nutritional Appearance: well nourished Orientation: alert, awake and oriented x3 HENMT Head: normal to inspection Ears: hearing grossly normal bilaterally Nose: external nose normal Mouth: oral mucosae normal Eyes General: appearance normal, both eyes and all related structures Alignment and Position: alignment normal Periorbital: periorbital findings normal Eyelids: eyelids normal Conjunctivae: conjunctivae normal Neck Neck: normal visual inspection Neck mass: No Thyroid: other (Right lobe absent) Lymphatic: no lymphadenopathy noted Chest Chest palpation inspection: normal inspection of the chest Resp Effort Inspection: normal respiratory effort, able to speak in complete sentences, symmetric chest movement, no audible wheezes and no cough Cardio Rate: regular rate Rhythm: regular rh (more content not included)... Normal [facility] Free T3on 08-26-2025 Free T3 [Mass/Vol] 2.4 pg/mL Normal 2.18-3.98 [facility] Comment on above: Performed By: #### L 506.0400, L501.9520, L501.08476 #### [facility] [address] [place], [address] T4 Free Directon 08-26-2025 T4 FREE DIRECT 1.40 ng/dL Normal 0.76-1.46 [facility] Comment on above: Performed By: #### L 506.0400, L501.9520, L501.39879 #### [facility] [address] [place], [address] Thyroid Stim Hormone (TSH)on 08-26-2025 TSH 2.990 uIU/mL Normal 0.300-4.200 [facility] Comment on above: Performed By: #### L 506.0400, L501.9520, L501.58547 #### [facility] [address] [place], [address] Free T3on 07-29-2025 Free T3 [Mass/Vol] 2.3 pg/mL Normal 2.18-3.98 [facility] Comment on above: Performed By: #### L 501.30896, L501.9520, L501.9310 #### [facility] [address] [place], [address] Free G4Kksdssf By: Bud fulton on 07-29-2025 Free T3 [Mass/Vol] 2.3 pg/mL 2.18-3.98 [facility] T4 Free Directon 07-29-2025 T4 FREE DIRECT 1.10 ng/dL Normal 0.76-1.46 [facility] Comment on above: Performed By: #### L 501.97479, L501.9520, L501.9310 #### [facility] [address] [place], [address] T4 freeOrdered By: Bud fulton on 07-29-2025 Free T4 [Mass/Vol] 1.10 ng/dL 0.76-1.46 [facility] TSH DL <= 0.005 mIU/L QnOrde red By: Bud Suazo on 07-29-2025 TSH Qn 4.260 uIU/mL High 0.300-4.200 [facility] Thyroid Stim Hormone (TSH)on 07-29-2025 TSH 4.260 uIU/mL High 0.300-4.200 [facility] Comment on above: Performed By: #### L 501.95844, L501.9520, L501.9310 #### [facility] [address] [place], [address] Free T3on 06-25-2025 Free T3 [Mass/Vol] 2.4 pg/mL Normal 2.18-3.98 [facility] Comment on above: Performed By: #### L 501.04168, L501.9520, L501.9310 #### [facility] [address] [place], [address] Free K3Woiixra By: Bud fulton on 06-25-2025 Free T3 [Mass/Vol] 2.4 pg/mL 2.18-3.98 [facility] Surgery Visit Reporton 06-25 Surgery Visit Report [facility] [address] [place] [address] OFFICE VISIT Date of Service: 06/25/25 MR#: [id number] Acct: [id number] Name: ASHLEY TUTTLE Rep #: [id number] : 1955 Provider: Dr. Bud falk MD Age/Sex: 69/F Location: [facility] Status: Signed Intake Vital Signs 05/21/25 06:38 [...] with her sister. She reports that generally everything is good. She offhandedly mentions that she is having [...] oil. She notes that she is overall very pleased with her healing. She has several questions [...] She describes her swallow as being somewhat constrained but notes this also to be improving with time. They had no wound concerns. Objective Details: Constitutional: Appreciative Neck: Nearly indistinguishable surgical incision that is well-healed, there is no tenderness, there is no induration Coding Level of Care Code Global Post Op Diagnoses History of lobectomy of thyroid Z90.09 Follicular carcinoma of thyroid C73 [facility] Medical History (Updated 06/25/25 @ 16:21 by [...] well follow (more content not included)... Normal [facility] T4 Total, Thyroxinon 025 T4 [Mass/Vol] 7.8 ug/dL Normal 4.8-13.9 [facility] Comment on above: Performed By: #### L 501.78862, L501.9520, L501.9310 #### [facility] [address] [place], [address] TSH DL <= 0.005 mIU/L QnOrde red By: Bud Suazo on 06-25-2025 TSH Qn 5.610 uIU/mL High 0.300-4.200 [facility] Thyroid Stim Hormone (TSH)on 06-25-2025 TSH 5.610 uIU/mL High 0.300-4.200 [facility] Comment on above: Performed By: #### L 501.43679, L501.9520, L501.9310 #### [facility] Laboratory [address] [place], [address] ThyroxineOrdered By: Bud Suazo on 06-25-2025 T4 [Mass/Vol] 7.8 ug/dL 4.8-13.9 [facility] Surgery Visit Reporton 05-[address] [facility] [address] [place] [address] OFFICE VISIT Date of Service: 05/29/25 MR#: [id number] Acct: [id number] Name: ASHLEY TUTTLE Rep #: [id number] : 1955 Provider: Dr. Bud falk MD Age/Sex: 69/F Location: [facility] Status: Signed Intake Vital Signs 05/21/25 06:38 [...] She describes her swallow as being somewhat constrained but notes this also to be improving [...] thyroid Z90.09 Follicular carcinoma of thyroid C73 [facility] Medical History (Updated 05/29/25 @ 18:29 by [...] visit wit (more content not included)... Normal [facility] Discharge Instructionon 05-[address] [facility] Medical Records Department [address] [place] [address] Instructions for Home/Discharge Instructions 05/21/25 1053 MR#: [id number] Acct: [id number] Name: ASHLEY TUTTLE Rep #: [id number] : 1955 69 From: Bud Suazo MD PCP: Dr. Ld Mon MD Status:DEP [facility] Discharge Instructions Diet Discharge Diet: No restrictions [...] Care Provider: Ld Mon Instructions Print Language: Indian Discharge Orders/Prescriptions Prescriptions: Continued metoprolol tartrate 50 [...] can be placed): Home, Self Care 05/21/25 8686 Bud Suazo MD CC: Dr. Ld Mon MD Signed Normal [facility] Frozen Section (charge)on Frozen Section (charge) ---- Patient Age/Sex Location Account Attending Physician ---- LEANDROASHLEY MARY 69/F [facility] [id number] Dr. Bud Suazo MD ---- Specimen: [id number] Received: 05/21/25 Status: ESTELA Sibley Num: [id number] Spec Type: PARATHY Subm Dr: Dr. Bud Suazo MD HEADER OPERATION: Thyroidectomy with isthmus and IONM, frozen section, auto transplant PRE-OP DIAGNOSIS: Thyroid nodule TISSUE SUBMITTED: A- Rule out parathyroid, B- Right thyroid lobe and isthmus * stitch vazquez right superior pole* ---- FROZEN SECTION DIAGNOSIS A. Rule out parathyroid: Parathyroid tissue. MS/mr 05/21/2025 MICROSCOPIC DIAGNOSIS A. Parathyroid tissue, biopsy: - Parathyroid tissue confirmed. B. Right thyroid and isthmus, thyroid nodule, right lobectomy with isthmus: ? - Follicular [...] Account Attending Physician ---- ASHLEY TUTTLE 69/F [facility] [id number] Dr. Bud Suazo MD ---- Margin Status??? [...] Dr Sudarshan Pak (head neck pathology division, [facility]). MICROSCOPIC DESCRIPTION Slides are reviewed. GROSS DESCRIPTION [...] name and date of . Designated as right thyroid lobe and isthmus stitch at right superior pole is a 11.2 g, 4.7 x 2.8 x 1.7 cm pink-purple to red hemithyroidectomy with an attached, 2.0 x 1.1 x 0.4 cm isthmus. There is a suture designated as right superior pole the tissue adjacent to the isthmus is [...] possibly ----- (more content not included)... Normal [facility] Comment on above: Performed By: #### L 501.31460, L501.9520, L501.9310 #### [facility] Laboratory [address] [place], [place], [address] MR/POSTOP.Bel 05-21-2025 MR/POSTOP.[facility] Medical Records Department [address] [place] [address] Anesthesia Postop Eval I 05/21/25 1118 MR#: [id number] Acct: [id number] Name: ASHLEY TUTTLE Rep #: [id number] : 1955 69 From: Miri Sherman CRNA PCP: Dr. Ld Mon MD Status:[facility] Y Race: C Location: [place] [address] Anesthesia: Postop Eval I Current Vital Signs [...] completed: Yes 05/21/25 1120 Date Miri Sherman WARP HANGER Cosigner Signature: Date CC: Signed Normal [facility] MR/[id number] 05-21-2025 [facility] Medical Records Department [address] [place] [address] Anesthesia Postop Eval II 05/21/25 1908 MR#: [id number] Acct: [id number] Name: ASHLEY TUTTLE Rep #: [id number] : 1955 69 From: Eleno Cerrato MD PCP: Dr. Ld Mon MD Status:[facility] Y Race: C Location: [facility] Anesthesia Postop Eval I Sum Postop Eval Completion status Anesthesia document: Postop Eval 1 completed: Yes Anesthesia Postop Eval I Summary Anesthesia Postop Eval I Summary: Anesthesia Postop Eval I: Assessment Summary Airway patent Yes 05/21/25 11:20 WARP [email or web address].GDOTT Spontaneous unlabored Yes 05/21/25 11:20 WARP HANGER.GDOTT respirations Mental status Awake,Calm 05/21/25 11:20 WARP HANGER.GDOTT nausea No 05/21/25 11:20 WARP HANGER.GDOTT Vomiting No 05/21/25 11:20 WARP [email or web address].GDOTT Anesthesia Postop Eval I: Fluid Summary Crystalloid volume administer 1,400 05/21/25 11:20 WARP [email or web address].GDOTT (ml) Colloids volume administered ( ml) Blood Product volume administered (ml) Total IV fluid infused 1,400 05/21/25 11:20 WARP [email or web address].GDOTT Anesthesia Postop Eval I: Summary Notes Anesthesia Complication No 05/21/25 11:20 WARP [email or web address].GDOTT Anesthesia Complication Comment: Post-operative progress note Anesthesia: Postop Eval II Evaluation Mental status: Awake and Calm Pain Level: 1 nausea: No Vomiting: No Complications Anesthesia Complication: No 05/21/25 1909 Date Eleno Cerrato MD Cosigner Signature: Date CC: Signed Normal [facility] Operative Reporton 5 Operative Report [facility] Medical Records Department [address] [place] [address] Operative Report 05/21/25 1051 MR#: [id number] Acct: [id number] Name: ASHLEY TUTTLE Rep #: [id number] : 1955 69 From: Bud Suazo MD PCP: Dr. Ld Mon MD Status:[facility] Location: [facility] Operative Report (Standard) Operative Information Date of Procedure: 05/21/25 Pre-Operative Diagnosis: Biopsy-proven suspicious right thyroid nodule Post-Operative Diagnosis: Same Surgery/Procedure Performed: 1. Right thyroid lobectomy and isthmusectomy with intraoperative neuromonitoring 2. Autotransplantation of right superior parathyroid gland to right sternocleidomastoid muscle wholesale diamond broker: Yes Shellfish Checker: Cierra Patrick Tasks completed by first aid officer: Hemostasis: Electrocautery and Retracting Type of Anesthesia: [...] the s (more content not included)... Normal [facility] Supplemental Reporton 2024 Supplemental Report . Pathology Reports Accession: Collected Date/Time: Received Date/Time: Pathologist: [id number] 03/27/2025 08:55 EDT 03/28/2025 08:59 EDT MD ROBERT ARGUETA Supplemental Report SUPPLEMENTAL: AFIRMA-[employer] Sales Representative Results: Nodule: A, Thyroid, Right Side, 3.1 cm [employer] Sales Representative: Suspicious Risk of Malignancy: 50% MTC: Negative Parathyroid: Negative BRAF p. V600E c. 1799T>A: Negative RET/PTC1, RET/PTC3: Not Detected AFIRMA XPression [place]: No Variant/Fusion Detected Nodule Result Summary: The result of this 3.1 cm [place] III nodule A is Afirma GSC Suspicious which suggests a risk of cancer of approximately 50%. The Risk of Malignancy of a GSC Suspicious Afirma XA negative sample remains approximately 50%. Clinical correlation and surgical resection should be considered. Complete report scanned into chart. Verified by Diagnostic interpretation performed at [facility] ROBERT ARGUETA MD Sign out Date: 04/25/2025 16:11 Performing Lab: [facility], [address] [place] [address] Pathology Dept Non-Manager French Cytology Report CLINICAL INFORMATION: nontoxic single thyroid nodule [id number] DIAGNOSTIC CATEGORY: ATYPIA OF UNDETERMINED SIGNIFICANCE Per [place] [facility] protocol, this specimen has been sent for Afirma [employer] Sales Representative test. Results to follow in about 2 weeks. SPECIMEN: Right thyroid FNA GROSS DESCRIPTION: # of Monolayers: 1 Volume (ml) 30 Color: fixed clear pink needle rinse in CytoLyt Afirma sample collected for reflex testing SUGGESTION/EDUCATIONAL NOTES: This specimen was evaluated using criteria described in The [place] System for Reporting Thyroid Cytopathology, Second Edition (2018). The following risk of malignancy rates are estimates based on published studies and includes data extrapolation. Individual institutions may have different rates. Actual management may depend on other factors (e.g., clinical. Sonographic) besides the FNA interpretation. Pathology Reports Accession: Collected Date/Time: Received Date/Time: Pathologist: [id number] 03/27/2025 08:55 EDT 03/28/2025 08:59 EDT MD [...] lobectomy Verified by Pathology Report verified by [facility] Screened by: GEETHA Electronically signed by ROBERT ARGUETA MD Sign-Out Date: 03/29/2025 10:45 Performing Lab: [facility], [address] [place] [address] Pathology Dept Disclaimer If ancillary studies were utilized, the following Laboratory Developed Test (LDT) disclaimer will apply: Under CLIA requirements, [facility] is qualified to perform high complexity testing. For all ancillary stains, positive and negative controls stain appropriately. Performance characteristics of immunohistochemical and chromogenic in-situ hybridization tests have been determined by [facility]. These tests are used for clinical purposes, They should not be regarded as investigational or for research. Normal [facility] Surgery Visit Reporton 04-25 Surgery Visit Report [facility] [address] [place] [address] OFFICE VISIT Date of Service: 04/25/25 MR#: [id number] Acct: [id number] Name: ASHLEY TUTTLE Rep #: [id number] : 1955 Provider: Dr. Bud falk MD Age/Sex: 69/F Location: [facility] Status: Signed Intake Vital Signs 04/25/25 13:00 [...] No cough, (more content not included)... Normal [facility] CBC (NO DIFF)on 04-22-2025 CBC panel Auto (Bld) Normal [facility] Comment on above: Result Comment: CBC( WITHOUT DIFFERENTIAL) Performed By: #### 2 [id number] #### [place] [id number] Erythrocyte distribution width (RBC) [Ratio] 13.3 % Normal 12.0 - 15.6 [facility] Comment on above: Performed By: #### 2 [address]5928 #### [place] [id number] Hematocrit (Bld) [Volume fraction] 39.2 % Normal 34.0 - 46.0 [facility] Comment on above: Performed By: #### 2 32548 #### [address] [place] [address] Hemoglobin (Bld) [Mass/Vol] 13.6 g/dL Normal 12.0 - 16.0 [facility] Comment on above: Performed By: #### 2 94000 #### [facility] [facility],[address] [place] [address] 68281 MCH (RBC) [Entitic mass] 31 pg Normal 27 - 33 [facility] Comment on above: Performed By: #### 2 42742 #### [facility],[address] [place] [address] 15442 MCHC 35 X10 3 Normal 32 - 36 [facility] Comment on above: Performed By: #### 2 70285 #### [facility],[address] [place] [address] 04205 MCV (RBC) [Entitic vol] 88 fL Normal 80 - 99 [facility] Comment on above: Performed By: #### 2 94185 #### [facility],[address] [place] [address] 60041 PLATELET 237 x10EE3/UL Normal 150 - 450 [facility] Comment on above: Performed By: #### 2 66480 #### [facility],[address] [place] [address] 75170 Platelet mean volume (Bld) [Entitic vol] 8.3 fL Normal 6.6 - 10.5 [facility] Comment on above: Performed By: #### 2 13019 #### [facility],[address] [place] [address] 06041 RBC 4.47 x 10EE6/UL Normal 4.10 - 5.30 [facility] Comment on above: Performed By: #### 2 09710 #### [facility],[address] [place] [address] 13821 WBC 5.7 x 10EE3/UL Normal 4.5 - 10.8 [facility] Comment on above: Performed By: #### 2 70786 #### [facility],[address] [place] [address] 50486 CMP with eGFRon 04-22-2025 AGE 69 years Normal [facility] Comment on above: Performed By: #### 2 60585 #### [facility],[address] [place] [address] 92727 Albumin [Mass/Vol] 3.4 g/dL Normal 3.4 - 5.0 [facility] Comment on above: Performed By: #### 2 17504 #### [facility],[address] [place] [address] 05144 Albumin/Globulin [Mass ratio] 1.1 {ratio} Normal 0.9 - 1.6 [facility] Comment on above: Performed By: #### 2 89574 #### [facility],[address] [place] [address] 53945 ALK PHOS 87 U/L Normal 46 - 116 [facility] Comment on above: Performed By: #### 2 11357 #### [facility],[address] [place] [address] 52572 ALT [Catalytic activity/Vol] 21 U/L Normal 16 - 63 [facility] Comment on above: Performed By: #### 2 15782 #### [facility],[address] [place] [address] 54145 Anion gap [Moles/Vol] 12 mmol/L Normal 10 - 20 [facility] Comment on above: Performed By: #### 2 47978 #### [facility],[address] [place] [address] 21108 AST [Catalytic activity/Vol] 13 U/L Normal 13 - 39 [facility] Comment on above: Performed By: #### 2 60216 #### [facility],[address] [place] [address] 34671 B/C RATIO 32 ratio High 0 - 30 [facility] Comment on above: Performed By: #### 2 62856 #### [facility],[address] [place] [address] 08274 Bilirubin [Mass/Vol] 0.5 mg/dL Normal 0.2 - 1.0 [facility] Comment on above: Performed By: #### 2 74372 #### [facility],[address] [place] [address] 28853 Calcium [Mass/Vol] 9.1 mg/dL Normal 8.5 - 10.1 [facility] Comment on above: Performed By: #### 2 74457 #### [facility],[address] [place] [address] 49529 Chloride [Moles/Vol] 109 mmol/L High 98 - 107 [facility] Comment on above: Performed By: #### 2 52848 #### [facility],[address] [place] [address] 44016 CMP with eGFR Normal [facility] Comment on above: Result Comment: COMP REHENSIVE METABOLIC PANEL Performed By: #### 2 05717 #### [facility],[address] [place] [address] 40020 CO2 [Moles/Vol] 28.2 mmol/L Normal 21.0 - 32.0 [facility] Comment on above: Performed By: #### 2 48302 #### [facility],[address] [place] [address] 33322 Creatinine [Mass/Vol] 0.73 mg/dL Normal 0.55 - 1.02 [facility] Comment on above: Performed By: #### 2 19591 #### [facility],[address] [place] [address] 08262 GFR/1.73 sq M.predicted among non-blacks MDRD (S/P/Bld) [Vol rate/Area] mL/min/{1.73_m2} Normal 60 - 999 [facility] Comment on above: Performed By: #### 2 84222 #### [facility],[address] [place] [address] 57140 Result Comment: ACCO RDING TO THE NATIONAL KIDNEY DISEASE EDUCATION PROGRAM(NKDE), A NORMAL eGFR IS A VALUE GREATER THAN OR EQUAL TO 60 ML/MIN/1.73 SQ METERS. CHRONIC KIDNEY DISEASE: <60mL/MIN/1.73 SQ METERS KIDNEY FAILURE: <15mL/MIN/1.73 SQ METERS THIS TEST SHOULD ONLY BE USED FOR PATIENTS 18 YEARS OF AGE AND OLDER. Globulin (S) [Mass/Vol] 3.0 g/dL Normal 1.5 - 3.8 [facility] Comment on above: Performed By: #### 2 14162 #### [facility],[address] [place] [address] 90440 Glucose [Mass/Vol] 93 mg/dL Normal 74 - 106 [facility] Comment on above: Performed By: #### 2 73164 #### [facility],[address] [place] [address] 79809 Potassium [Moles/Vol] 3.8 mmol/L Normal 3.5 - 5.1 [facility] Comment on above: Performed By: #### 2 46399 #### [facility],[address] [place] [address] 20533 Protein [Mass/Vol] 6.4 g/dL Normal 6.4 - 8.2 [facility] Comment on above: Performed By: #### 2 28892 #### [facility],[address] [place] [address] 32561 Sodium [Moles/Vol] 145 mmol/L Normal 136 - 145 [facility] Comment on above: Performed By: #### 2 28236 #### [facility],[address] [place] [address] 57741 Urea nitrogen [Mass/Vol] 23 mg/dL High 7 - 18 [facility] Comment on above: Performed By: #### 2 26478 #### [facility],[address] [place] [address] 11435 LIPID PROFILEon 04-22-2025 Cholesterol [Mass/Vol] 251 mg/dL High 0 - 240 [facility] Comment on above: Performed By: #### 2 48755 #### [facility],[address] [place] [address] 88366 Cholesterol in HDL [Mass/Vol] 62 mg/dL High 40 - 60 [facility] Comment on above: Performed By: #### 2 19478 #### [facility],[address] [place] [address] 31604 Cholesterol in LDL [Mass/Vol] 172 mg/dL High 0 - 129 [facility] Comment on above: Performed By: #### 2 73238 #### [facility],[address] [place] [address] 22625 Cholesterol.total/Cho lesterol in HDL [Mass ratio] 4.0 {ratio} Normal 0.0 - 5.0 [facility] Comment on above: Performed By: #### 2 26311 #### [facility],[address] [place] [address] 15403 Lipid 1996 panel Normal [facility] Comment on above: Result Comment: LIPI D PROFILE Performed By: #### 2 67545 #### [facility],[address] [place] [address] 59968 Triglyceride [Mass/Vol] 87 mg/dL Normal 0 - 150 [facility] Comment on above: Performed By: #### 2 84963 #### [facility],[address] [place] [address] 97289 3D MAMM BILAT SCREENon 03-29 3D MAMM BILAT SCREEN [place] [address] Patient: ASHLEY TUTTLE Phone#: : 1955 Age: 69 Gender: F Pt. Type: Out Account: [id number] Location: [facility] Ordering: LD MON Exam Date: 03/29/2025/14:45 Family Phys: Charge Code: 094991 Physician: Stokes Order #: [id number] Dose#: PROCEDURE: BILATERAL SCREENING BREAST TOMOSYNTHESIS MAMMOGRAM WITH CAD COMPARISON: [facility], 3D BILAT SCREEN, 02/01/2023, 13:56. [facility], 3D BILAT SCREEN, 03/12/2024, 14:08. INDICATIONS: [...] Swift MD on 03/29/2025 at 15:04 Normal [facility] Non-Manager French Cytology Reporton Non-Manager French Cytology Report . Pathology Reports Accession: Collected Date/Time: Received Date/Time: Pathologist: [id number] 03/27/2025 08:55 EDT 03/28/2025 08:59 EDT MD ROBERT ARGUETA Non-Manager French Cytology Report CLINICAL INFORMATION: nontoxic single thyroid nodule [id number] DIAGNOSTIC CATEGORY: ATYPIA OF UNDETERMINED SIGNIFICANCE Per [facility] protocol, this specimen has been sent for [employer] Sales Representative test. Results to follow in about 2 weeks. SPECIMEN: Right thyroid FNA GROSS DESCRIPTION: # of Monolayers: 1 Volume (ml) 30 Color: fixed clear pink needle rinse in CytoLyt Afirma sample collected for reflex testing SUGGESTION/EDUCATIONAL NOTES: This specimen was evaluated using criteria described in The [place] System for Reporting Thyroid Cytopathology, Second Edition [...] lobectomy Verified by Pathology Report verified by [facility] Screened by: GEETHA Electronically signed by ROBERT ARGUETA MD Sign-Out Date: 03/29/2025 10:45 Performing Lab: [facility], [address] [place] [address] Pathology Dept Disclaimer If ancillary studies were utilized, the following Laboratory Developed Test (LDT) disclaimer will apply: Pathology Reports Accession: Collected Date/Time: Received Date/Time: Pathologist: [id number] 03/27/2025 08:55 EDT 03/28/2025 08:59 EDT MD ROBERT ARGUETA Disclaimer Under CLIA requirements, [facility] is qualified to perform high complexity testing. For all ancillary stains, positive and negative controls stain appropriately. Performance characteristics of immunohistochemical and chromogenic in-situ hybridization tests have been determined by [facility]. These tests are used for clinical purposes, They should not be regarded as investigational or for research. Normal [facility] FINE NEEDLE ASPIR W/ US GUID E 1ST LESIONon 03-27-2025 FINE NEEDLE ASPIR W/ US GUIDE 1ST LESION [place] [address] Patient: ASHLEY TUTTLE Phone#: : 1955 Age: 69 Gender: F Pt. Type: Out Account: [id number] Location: [facility] Ordering: ALEXANDER ESTRADAANGELEdgar Exam Date: 03/27/2025/12:56 Family Phys: LD MON Charge Code: [id number] Physician: Stokes Order #: [id number] Dose#: This report includes an Addendum and [...] Cobos MD on 04/08/2025 at 16:36 Normal [facility] THYROID 02-20-2025 [place] [address] Patient: ASHLEY TUTTLE Phone#: : 1955 Age: 69 Gender: F Pt. Type: Out Account: [id number] Location: [facility] Ordering: ALEXANDER AREVALO Exam Date: 02/20/2025/12:50 Family Phys: LD MON Charge Code: [id number] Physician: Stokes Order #: [id number] Dose#: PROCEDURE: THYROID ULTRASOUND COMPARISON: None. INDICATIONS: [...] Cobos MD on 02/20/2025 at 14:10 Normal [facility] CBC + DIFFon 02-07-2025 Baso # 0.02 x10EE3/UL Normal 0.00 - 0.10 [facility] Comment on above: Performed By: #### 2 97041 #### [place] [address] Basophils/100 WBC (Bld) 0.3 % Normal 0.0 - 2.0 [facility] Comment on above: Performed By: #### 2 54560 #### [facility],[address] [place] [address] CBC + DIFF Normal [facility] Comment on above: Result Comment: CBC- COMPLETE BLOOD COUNT Performed By: #### 2 66378 #### [place] [address] EO # 0.10 x10EE3/UL Normal 0.00 - 0.50 [facility] Comment on above: Performed By: #### 2 62212 #### [place] [address] Eosinophils/100 WBC (Bld) 1.4 % Normal 0.0 - 7.0 [facility] Comment on above: Performed By: #### 2 53241 #### [facility],[address] [place] [address] Erythrocyte distribution width (RBC) [Ratio] 13.4 % Normal 12.0 - 15.6 [facility] Comment on above: Performed By: #### 2 81668 #### [facility],[address] [place] [address] Hematocrit (Bld) [Volume fraction] 40.5 % Normal 34.0 - 46.0 [facility] Comment on above: Performed By: #### 2 28913 #### [facility],[address] [place] [address] Hemoglobin (Bld) [Mass/Vol] 13.7 g/dL Normal 12.0 - 16.0 [facility] Comment on above: Performed By: #### 2 60917 #### [facility],[address] [place] [address] Lymph # 0.53 x10EE3/UL Low 0.80 - 2.80 [facility] Comment on above: Performed By: #### 2 56584 #### [facility],[address] [place], [place] [address] Lymphocytes/100 WBC (Bld) 7.7 % Low 20.0 - 45.0 [facility] Comment on above: Performed By: #### 2 69023 #### [facility],[address] [place] [address] 97224 MANUAL DIFF N/A Normal [facility] Comment on above: Performed By: #### 2 65934 #### [facility],[address] [place], [place] [address] MCH (RBC) [Entitic mass] 29 pg Normal 27 - 33 [facility] Comment on above: Performed By: #### 2 83850 #### [facility],[address] [place] [address] MCHC 34 X10 3 Normal 32 - 36 [facility] Comment on above: Performed By: #### 2 38579 #### [facility],[address] [place], [place] [address] MCV (RBC) [Entitic vol] 87 fL Normal 80 - 99 [facility] Comment on above: Performed By: #### 2 72802 #### [facility],[address] [place] [address] [place] # 0.39 x10EE3/UL Normal 0.20 - 1.00 [facility] Comment on above: Performed By: #### 2 81912 #### [facility],[address] [place] [address] MONOS % 5.6 % Normal 0.0 - 10.0 [facility] Comment on above: Performed By: #### 2 65430 #### [facility],[address] [place], [place] [address] Morphology Chris (Bld) [Interp] N/A Normal [facility] Comment on above: Performed By: #### 2 81390 #### [facility],[address] [place] [address] Neut # 5.86 x10EE3/UL Normal 1.50 - 7.10 [facility] Comment on above: Performed By: #### 2 42429 #### [facility],[address] [place], [place] [address] Neutrophils/100 WBC (Bld) 85.0 % High 46.0 - 76.0 [facility] Comment on above: Performed By: #### 2 66702 #### [facility],[address] [place], [place] [address] PLATELET 177 x10EE3/UL Normal 150 - 450 [facility] Comment on above: Performed By: #### 2 68248 #### [facility],[address] [place] [address] 06844 Platelet mean volume (Bld) [Entitic vol] 7.2 fL Normal 6.6 - 10.5 [facility] Comment on above: Result Comment: AUTO MATED DIFFERENTIAL Performed By: #### 2 16902 #### [facility],[address] [place] [address] 01905 RBC 4.67 x 10EE6/UL Normal 4.10 - 5.30 [facility] Comment on above: Performed By: #### 2 86563 #### [facility],[address] [place] [address] 87106 WBC 6.9 x 10EE3/UL Normal 4.5 - 10.8 [facility] Comment on above: Performed By: #### 2 34946 #### [facility],[address] [place] [address] 35726 CMP with eGFRon 02-07-2025 AGE 69 years Normal [facility] Comment on above: Performed By: #### 2 83803 #### [facility],[address] [place] [address] 07635 Albumin [Mass/Vol] 3.4 g/dL Normal 3.4 - 5.0 [facility] Comment on above: Performed By: #### 2 08956 #### [facility],[address] [place] [address] 71332 Albumin/Globulin [Mass ratio] 1.0 {ratio} Normal 0.9 - 1.6 [facility] Comment on above: Performed By: #### 2 19694 #### [facility],[address] [place] [address] 35851 ALK PHOS 92 U/L Normal 46 - 116 [facility] Comment on above: Performed By: #### 2 48652 #### [facility],[address] [place] [address] 49376 ALT [Catalytic activity/Vol] 21 U/L Normal 16 - 63 [facility] Comment on above: Performed By: #### 2 22261 #### [facility],[address] [place] [address] 55654 Anion gap [Moles/Vol] 12 mmol/L Normal 10 - 20 [facility] Comment on above: Performed By: #### 2 69838 #### [facility],[address] [place] [address] 96903 AST [Catalytic activity/Vol] 11 U/L Low 13 - 39 [facility] Comment on above: Performed By: #### 2 65606 #### [facility],[address] [place] [address] 36210 B/C RATIO 31 ratio High 0 - 30 [facility] Comment on above: Performed By: #### 2 26406 #### [facility],[address] [place] [address] 02555 Bilirubin [Mass/Vol] 0.7 mg/dL Normal 0.2 - 1.0 [facility] Comment on above: Performed By: #### 2 93885 #### [facility],[address] [place] [address] 98600 Calcium [Mass/Vol] 8.5 mg/dL Normal 8.5 - 10.1 [facility] Comment on above: Performed By: #### 2 27965 #### [facility],[address] [place] [address] 17543 Chloride [Moles/Vol] 104 mmol/L Normal 98 - 107 [facility] Comment on above: Performed By: #### 2 86273 #### [facility],[address] [place] [address] 53995 CMP with eGFR Normal [facility] Comment on above: Result Comment: COMP REHENSIVE METABOLIC PANEL Performed By: #### 2 19944 #### [facility],[address] [place] [address] 69921 CO2 [Moles/Vol] 25.2 mmol/L Normal 21.0 - 32.0 [facility] Comment on above: Performed By: #### 2 96082 #### [facility],[address] [place] [address] 97627 Creatinine [Mass/Vol] 0.81 mg/dL Normal 0.55 - 1.02 [facility] Comment on above: Performed By: #### 2 80470 #### [facility],[address] [place] [address] 66295 GFR/1.73 sq M.predicted among non-blacks MDRD (S/P/Bld) [Vol rate/Area] mL/min/{1.73_m2} Normal 60 - 999 [facility] Comment on above: Performed By: #### 2 94455 #### [facility],[address] [place] [address] 14223 Result Comment: ACCO RDING TO THE NATIONAL KIDNEY DISEASE EDUCATION PROGRAM(NKDE), A NORMAL eGFR IS A VALUE GREATER THAN OR EQUAL TO 60 ML/MIN/1.73 SQ METERS. CHRONIC KIDNEY DISEASE: <60mL/MIN/1.73 SQ METERS KIDNEY FAILURE: <15mL/MIN/1.73 SQ METERS THIS TEST SHOULD ONLY BE USED FOR PATIENTS 18 YEARS OF AGE AND OLDER. Globulin (S) [Mass/Vol] 3.3 g/dL Normal 1.5 - 3.8 [facility] Comment on above: Performed By: #### 2 09733 #### [facility],[address] [place] [address] 58116 Glucose [Mass/Vol] 111 mg/dL High 74 - 106 [facility] Comment on above: Performed By: #### 2 00702 #### [facility],[address] [place] [address] 82611 Potassium [Moles/Vol] 3.9 mmol/L Normal 3.5 - 5.1 [facility] Comment on above: Performed By: #### 2 37421 #### [facility],[address] [place] [address] 26090 Protein [Mass/Vol] 6.7 g/dL Normal 6.4 - 8.2 [facility] Comment on above: Performed By: #### 2 63696 #### [facility],[address] [place] [address] Sodium [Moles/Vol] 137 mmol/L Normal 136 - 145 [facility] Comment on above: Performed By: #### 2 66955 #### [facility],[address] [place] [address] Urea nitrogen [Mass/Vol] 25 mg/dL High 7 - 18 [facility] Comment on above: Performed By: #### 2 25489 #### [facility],[address] [place], [place] [address] CORONAVIRUS (SARS) ANTIGEN T ESTon 02-07-2025 EXTERNAL QC DONE? YES Normal [facility] Comment on above: Performed By: #### 2 90068 #### [facility],[address] [place] [address] INTERNAL CONTROL PASS Normal [facility] Comment on above: Performed By: #### 2 52149 #### [facility],[address] [place] [address] SARS ANTIGEN Negative Normal NORMAL: NEGATIVE [facility] Comment on above: Performed By: #### 2 51002 #### [facility],[address] [place] [address] SEND TO ? NO Normal [facility] Comment on above: Result Comment: SARS -CoV-2 THIS TEST IS BEING USED UNDER THE FDA EUA PROCEDURE. THIS ASSAY HAS BEEN VALIDATED AT [facility] FOR USE WITH NASAL AND [...] PUBLIC HEALTH AUTHORITIES. Performed By: #### 2 69312 #### [place] [address] CT CHEST (PE PROTOCOL)on CT CHEST (PE PROTOCOL) [place] [address] Patient: ASHLEY TUTTLE Phone#: : 1955 Age: 69 Gender: F Pt. Type: ER Account: [id number] Location: [facility] Ordering: CHONG ANDRES Exam Date: 02/07/2025/9:13 Family Phys: LD MON Charge Code: [id number] Physician: Stokes Order #: [id number] Dose#: 8.90 PROCEDURE: CT CHEST WITH CONTRAST FOR PE COMPARISON: [facility], CT, CHEST PE W CON, 07/29/2023, 6:55. [...] 69 Gender: F Pt. Type: ER Account: [id number] Location: 2 Ordering: CHONG ANDRES Exam Date: 02/07/2025/9:13 Family Phys: LD MON Charge Code: [id number] Physician: Stokes Order #: [id number] Dose#: 8.90 2. Enlarged heterogeneous right lobe of the thyroid, suspect large underlying nodule. Recommend dedicated thyroid ultrasound for further characterization. Dictated by: Shruti Cobos MD on 02/07/2025 at 9:53 Approved by: Shruti Cobos MD on 02/07/2025 at 10:00 Normal [facility] D-DIMER, QUANTITATIVEon 04-0 D-DIMER QUANT 267 ng/ml High 0 - 230 [facility] Comment on above: Performed By: #### 2 51155 #### [facility],[address] [place] [address] D-DIMER, QUANTITATIVE Normal [facility] Comment on above: Result Comment: CECI Mcneil D-DIMER Performed By: #### 2 50456 #### [facility],[address] [place] [address] ED MED ADMINISTRATION DETAIL on 02-07-2025 ED MED ADMINISTRATION DETAIL Wellness Health Coach Medication Administration Record [place] [id number] 02/07/2025 Patient: ASHLEY TUTTLE Sex: Female : 1955 Age: 69y MEASUREMENTS: Wt: 95.3 kg, Ht/Tommy: 63.0 in, BMI: 37.20 ALLERGIES: No known drug allergies Medication Ordered Medication Administration Date/Time Albuterol-Ipratropiu 08:51 02/07 Albuterol-Ipratropium (DuoNeb) 3mg/0.5mg Neb Tx 3 Given m (DuoNeb) mL given. Given by the respiratory therapist. Allergies verified and 08:51 02/07/2025 3mg/0.5mg Neb Tx confirmed 5 rights. Information reviewed with patient. - 08:51 Aj Griffith, 3 mL (NOW x1) Aj Griffith R.R.T. R.R.T. Not Scanned CefTRIAXone 09:38 04 [...] protocol. - 09:39 Rob Eastep, R.N. 10:10 04 Medication Discontinued: IV completed. Total amount infused: 50 mL. - 10:28 Rob Rodrigez R.N. 1 of 2 [facility] Coach Medication Ordered Medication Administration Date/Time MethylPREDNISolo 09:35 02/07 MethylPREDNISolone Sodium Succ (Solu-Medrol) IVP Given ne Sodium Succ 125 mg given via Site# 1. Allergies verified and confirmed 5 rights. 09:35 02/07/2025 (Solu-Medrol) IVP IV patency established. IV site checked: no pain, redness, or Selina UribeNIrma 125 mg (NOW x1) swelling. IV flushed thoroughly pre-medication administration. IVP Scanned given by nurse. Information reviewed with patient including reason for taking this medication, signs of allergic reaction and precautions. Verbalizes understanding. - 09:38 Rob Rodrigez R.N. 2 of 2 Normal [facility] ED NURSES CLINICAL NOTEon ED NURSES CLINICAL NOTE Nurse Narrative Nurse Clinical Narrative [address] [place] [address] [phone] 02/07/2025 07:11:00 Patient: ASHLEY TUTTLE Sex: Female : 1955 Age: 69y Disposition: Discharge to Home Disposition Decision Time: 10:02/07/2025 Departure Time: 10:26 02/07/2025 TRIAGE Arrived by private vehicle. Historian: (patient). Unaccompanied. Primary physician (Omran). Triage time: 07:28 02/07/2025. Acuity: LEVEL 3. Chief Complaint: COUGH. Onset. (4 days). The patient has had difficulty breathing. SEPSIS SCREEN: NEGATIVE. SIRS criteria negative. No possible sources of infection. -- 07:02/07/25 EDT Brock Aldana R.N. 07:02/07/25. BP: 212/94 MAP: 133. HR: 62. RR: 18. O2 saturation: 92% Temperature: 99.7 F. Pain level now 0/10. -- 07:02/07/25 EDT Brock Aldana R.N. Measurements: 07:32 02/07/25 Wt: 95.3 kg, Ht/Tommy: 63.0 in, BMI: 37.20 -- 07:32 02/07/25 GENEVA Aldana R.N. Medications: metoprolol tartrate 50 [...] harming or killing yourself?. -- 07:33 02/07/25 GENEVA Aldana R.N. 07:02/07/25. FALL RISK ASSESSMENT: Fall risk assessment completed. Risk factors identified include patient age greater than 65 years. -- 07:35 02/07/25 GENEVA Aldana R.N. Interventions 07:02/07/25. Identification band on patient. Advanced care plan discussed with patient (full code). -- 07:33 02/07/25 GENEVA Aldana R.N. PHYSICAL ASSESSMENT 2 of [...] Griffith R.R.T. 09:08 02/07/25. Patient transported to [place]. -- 09:09 02/07/25 EDT Rob Rodrigez R.N. [...] with p (more content not included)... Normal [facility] ED ORDER SHEET (CPOE ONLY)on 02-07-2025 ED ORDER SHEET (CPOE ONLY) Order Sheet Order Sheet [facility] [address] [facility] [place] [address] [id number] 02/07/2025 Patient: ASHLEY TUTTLE Sex: Female : 1955 Age: 69y MEASUREMENTS: Wt: 95.3 kg, Ht/Tommy: 63.0 in, BMI: 37.20 ALLERGIES: No known drug allergies MEDICATION/IV/DRIP/FLU ID ORDERS Order Description Priority Entered Acknowledged Completed Albuterol-Ipratropium (DuoNeb) 07:41 02/07/2025 08:41 08:51 3mg/0.5mg Neb Tx3 mL (NOW Zev Huggins, 02/07/2025 02/07/2025 x1) Aj Kim, RaimundoT. R.R.T. CefTRIAXone (Rocephin) IVPB 09:19 02/07/2025 09:21 09:39 2gm/50ml NS2 g diluted in Chong Andres D.O. 02/07/2025 02/07/2025 sodium chloride IVPB 0.9 % Rob Uribe, Minibag+ 50 mL at 100 mL/hr R.N. R.N. (NOW x1) MethylPREDNISolone Sodium 09:19 02/07/2025 09:21 09:38 Succ (Solu-Medrol) VOS267 mg Maribel ShelleyOIrma 02/07/2025 02/07/2025 (NOW x1) Rob Uribe, R.N. R.N. LAB ORDERS Order Description Priority [...] Rob Hubbard Lucas Eastep, D.O. R.N. R.N. Flu Swab (Influenzae Stat 07:41 02/07/2025 07:59 02/07/2025 08:48 02/07/2025 AAg) Stat Rob Hubbard Lucas Eastep, D.O. R.N. R.N. Rapid COVID (SARS) Stat 07:41 02/07/2025 07:59 02/07/2025 08:48 02/07/2025 ANTIGEN TEST Stat Rob Hubbard Lucas Eastep, D.O. R.N. R.NIrma D-Dimer Stat Stat 08:39 02/07/2025 08:47 02/07/2025 08:47 02/07/2025 Lola Shelley Lucas Eastep R.N. R.NIrma DIAGNOSTIC STUDY ORDERS 2 of 3 Order Sheet Order Description Priority Entered Acknowledged Completed CT Chest PE Study Stat Stat 08:59 02/07/2025 09:01 09:01 Chong Andres D.O. 02/07/2025 02/07/2025 Rob Uribe R.N. R.N. Order Comments: 08:59 02/07/2025: Status: Not . Chong Andres D.O. Reason for Study: Pulmonary Disease STAFF ORDERS Order Description Priority Entered Acknowledged Collected Completed IV Saline Lock 07:41 02/07/2025 07:59 02/07/2025 08:47 02/07/2025 Rob Hubbard Lucas Eastep, D.O. R.N. RSerg [Electronically signed by Zev Huggins D.O. (02/07/2025 14:07 EDT)] 3 of 3 Normal [facility] ED PHYSICIAN CLINICAL REPORT on 02-07-2025 ED PHYSICIAN CLINICAL REPORT Narrative Physician Clinical Narrative [address] [place] [address] [id number] 02/07/2025 07:11:00 Patient: ASHLEY TUTTLE Sex: Female [...] 1.50 - 7.10 Final EDT 02/07/2025 08:10 [place] # 0.39 x10/UL 0.20 - 1.00 Final [...] mg/dl 0. (more content not included)... Normal [facility] ED SUPER BILLon 02-07-2025 ED SUPER BILL [address] [address] [id number] 02/07/2025 Patient: ASHLEY TUTTLE Sex: Female : 1955 Age: 69y Facility Professional Category Item Description Code Code Quantity Fee Total Nurse/E/M EMERGENCY 930416 1 $0.00 $0.00 DEPT VISIT HIGH SEVERITYFUNCJ (83157-85) Nurse/IV/IM/Infusions Drip/IVPB initial 790028 1 $0.00 $0.00 (78101) Nurse/IV/IM/Infusions IVP additional 835459 1 $0.00 $0.00 push (19446) Nurse/Procedures Respiratory 791277 1 $0.00 $0.00 therapy - inhalation (86644) Grand $0.00 Total Providers Zev Huggins D.O. Chief Complaint DYSPNEA. 1 of 2 [facility] Principal Diagnosis Acute dyspnea. Bronchopneumonia. thyroid nodule needs an ultrasound and probable biopsy. ICD-10 Codes J18.0: Bronchopneumonia, unspecified organism R06.09: Other forms of dyspnea 2 of 2 Normal [facility] ED VISIT SUMMARYon ED VISIT SUMMARY Visit Overview Visit Overview [address] [address] [id number] 02/07/2025 Patient: ASHLEY TUTTLE Sex: Female : [...] ACUTE DYSPNEA BRONCHOPNEUMONIA 3 of 3 Normal [facility] ED VITALS FLOW SHEETon 02-07 ED VITALS FLOW SHEET Vitals Vital Sign Flow Sheet [address] [place] [address] [id number] 02/07/2025 Patient: ASHLEY TUTTLE Sex: Female : [...] 99.7 F 0 3 of 3 Normal [facility] INFLUENZA VIRUS RAPID A/Bon 02-07-2025 INFLUENZA [...] TO THREE DAYS. RESULT CRITICAL? NO Normal [facility] Comment on above: Performed By: #### 2 17674 #### [place] [address] NT-proBNPon 02-07-2025 Natriuretic peptide B (Bld) [Mass/Vol] 304 pg/mL High 0 - 125 [facility] Comment on above: Performed By: #### 2 68400 #### [place] [address] TROPONINon 02-07-2025 HS TROPONIN 4.0 pg/mL Normal 0.0 - 51.4 [facility] Comment on above: Performed By: #### 2 96470 #### [place] [address] CBC (NO DIFF)on 10-08-2024 CBC panel Auto (Bld) Normal [facility] Comment on above: Result Comment: CBC( WITHOUT DIFFERENTIAL) Performed By: #### 2 45918 #### [place] [address]7914 Erythrocyte distribution width (RBC) [Ratio] 13.6 % Normal 12.0 - 15.6 [facility] Comment on above: Performed By: #### 2 50336 #### [place] 127914 Hematocrit (Bld) [Volume fraction] 41.3 % Normal 34.0 - 46.0 [facility] Comment on above: Performed By: #### 2 65037 #### [place] [address] Hemoglobin (Bld) [Mass/Vol] 13.8 g/dL Normal 12.0 - 16.0 [facility] Comment on above: Performed By: #### 2 58276 #### [facility],[address] [place] [address] 40245 MCH (RBC) [Entitic mass] 29 pg Normal 27 - 33 [facility] Comment on above: Performed By: #### 2 72922 #### [facility],[address] [place] [address] 72490 MCHC 34 X10 3 Normal 32 - 36 [facility] Comment on above: Performed By: #### 2 06468 #### [facility],[address] [place] [address] 27408 MCV (RBC) [Entitic vol] 87 fL Normal 80 - 99 [facility] Comment on above: Performed By: #### 2 37633 #### [facility],[address] [place] [address] 83163 PLATELET 279 x10EE3/UL Normal 150 - 450 [facility] Comment on above: Performed By: #### 2 16295 #### [facility],[address] [place] [address] 92847 Platelet mean volume (Bld) [Entitic vol] 7.4 fL Normal 6.6 - 10.5 [facility] Comment on above: Performed By: #### 2 71773 #### [facility],[address] [place] [address] 65190 RBC 4.77 x 10EE6/UL Normal 4.10 - 5.30 [facility] Comment on above: Performed By: #### 2 70554 #### [facility],[address] [place] [address] 14198 WBC 6.9 x 10EE3/UL Normal 4.5 - 10.8 [facility] Comment on above: Performed By: #### 2 09949 #### [facility],[address] [place] [address] 96309 CMP with eGFRon 10-08-2024 AGE 69 years Normal [facility] Comment on above: Performed By: #### 2 75395 #### [facility],[address] [place] [address] 96114 Albumin [Mass/Vol] 3.4 g/dL Normal 3.4 - 5.0 [facility] Comment on above: Performed By: #### 2 92976 #### [facility],[address] [place] [address] 27186 Albumin/Globulin [Mass ratio] 1.0 {ratio} Normal 0.9 - 1.6 [facility] Comment on above: Performed By: #### 2 03648 #### [facility],[address] [place] [address] 40074 ALK PHOS 94 U/L Normal 46 - 116 [facility] Comment on above: Performed By: #### 2 08736 #### [facility],[address] [place] [address] 93785 ALT [Catalytic activity/Vol] 21 U/L Normal 16 - 63 [facility] Comment on above: Performed By: #### 2 89214 #### [facility],[address] [place] [address] 72345 Anion gap [Moles/Vol] 14 mmol/L Normal 10 - 20 [facility] Comment on above: Performed By: #### 2 21907 #### [facility],[address] [place] [address] 25351 AST [Catalytic activity/Vol] 14 U/L Normal 13 - 39 [facility] Comment on above: Performed By: #### 2 71108 #### [facility],[address] [place] [address] 90845 B/C RATIO 21 ratio Normal 0 - 30 [facility] Comment on above: Performed By: #### 2 76867 #### [facility],[address] [place] [address] 47892 Bilirubin [Mass/Vol] 0.6 mg/dL Normal 0.2 - 1.0 [facility] Comment on above: Performed By: #### 2 45030 #### [facility],[address] [place] [address] 92153 Calcium [Mass/Vol] 9.2 mg/dL Normal 8.5 - 10.1 [facility] Comment on above: Performed By: #### 2 86292 #### [facility],[address] [place] [address] 50938 Chloride [Moles/Vol] 106 mmol/L Normal 98 - 107 [facility] Comment on above: Performed By: #### 2 97661 #### [facility],[address] [place] [address] 11266 CMP with eGFR Normal [facility] Comment on above: Result Comment: COMP REHENSIVE METABOLIC PANEL Performed By: #### 2 05242 #### [facility],[address] [place] [address] 26557 CO2 [Moles/Vol] 26.8 mmol/L Normal 21.0 - 32.0 [facility] Comment on above: Performed By: #### 2 75061 #### [facility],[address] [place] [address] 46017 Creatinine [Mass/Vol] 0.82 mg/dL Normal 0.55 - 1.02 [facility] Comment on above: Performed By: #### 2 82224 #### [facility],[address] [place] [address] 82554 GFR/1.73 sq M.predicted among non-blacks MDRD (S/P/Bld) [Vol rate/Area] mL/min/{1.73_m2} Normal 60 - 999 [facility] Comment on above: Performed By: #### 2 13115 #### [facility],[address] [place] [address] 32247 Result Comment: ACCO RDING TO THE NATIONAL KIDNEY DISEASE EDUCATION PROGRAM(NKDE), A NORMAL eGFR IS A VALUE GREATER THAN OR EQUAL TO 60 ML/MIN/1.73 SQ METERS. CHRONIC KIDNEY DISEASE: <60mL/MIN/1.73 SQ METERS KIDNEY FAILURE: <15mL/MIN/1.73 SQ METERS THIS TEST SHOULD ONLY BE USED FOR PATIENTS 18 YEARS OF AGE AND OLDER. Globulin (S) [Mass/Vol] 3.3 g/dL Normal 1.5 - 3.8 [facility] Comment on above: Performed By: #### 2 91587 #### [facility],[address] [place] [address] 32296 Glucose [Mass/Vol] 110 mg/dL High 74 - 106 [facility] Comment on above: Performed By: #### 2 37906 #### [facility],[address] [place] [address] 63674 Potassium [Moles/Vol] 3.5 mmol/L Normal 3.5 - 5.1 [facility] Comment on above: Performed By: #### 2 24377 #### [facility],[address] [place] [address] 55442 Protein [Mass/Vol] 6.7 g/dL Normal 6.4 - 8.2 [facility] Comment on above: Performed By: #### 2 18257 #### [facility],[address] [place] [address] 86429 Sodium [Moles/Vol] 143 mmol/L Normal 136 - 145 [facility] Comment on above: Performed By: #### 2 79442 #### [facility],[address] [place] [address] 48156 Urea nitrogen [Mass/Vol] 17 mg/dL Normal 7 - 18 [facility] Comment on above: Performed By: #### 2 79477 #### [facility],[address] [place] [address] 72518 HEMOGLOBIN A1C (POM)on 10-08 Glucose [Mass/Vol] 102.5 mg/dL High 0.0 - 0.0 [facility] Comment on above: Result Comment: BLDo HEMOGLOBIN A1C REFERENCE RANGESBLDo Suggested Diagnosis HbA1c(%) HbA1C (mmol/mol Diabetic >/=6.5 >/=48 Prediabetes 5.7 - 6.4 39 - 47 Normal <5.7 <39 Performed By: #### 2 92277 #### [facility],[address] [place] [address] 50764 HbA1c (Bld) [Mass fraction] 5.2 % Normal 0.0 - 6.5 [facility] Comment on above: Performed By: #### 2 32019 #### [facility],[address] [place] [address] 98697 LIPID PROFILEon 10-08-2024 Cholesterol [Mass/Vol] 244 mg/dL High 0 - 240 [facility] Comment on above: Performed By: #### 2 56615 #### [facility],[address] [place] [address] 14118 Cholesterol in HDL [Mass/Vol] 57 mg/dL Normal 40 - 60 [facility] Comment on above: Performed By: #### 2 96004 #### [facility],[address] [place] [address] 71426 Cholesterol in LDL [Mass/Vol] 158 mg/dL High 0 - 129 [facility] Comment on above: Performed By: #### 2 36936 #### [facility],[address] [place] [address] 12453 Cholesterol.total/Cho lesterol in HDL [Mass ratio] 4.3 {ratio} Normal 0.0 - 5.0 [facility] Comment on above: Performed By: #### 2 15740 #### [facility],[address] [place] [address] 12585 Lipid 1996 panel Normal [facility] Comment on above: Result Comment: LIPI D PROFILE Performed By: #### 2 27390 #### [facility],[address] [place] [address] 45103 Triglyceride [Mass/Vol] 143 mg/dL Normal 0 - 150 [facility] Comment on above: Performed By: #### 2 64228 #### [facility],[address] [place], [place] [address] TSHon 10-08-2024 TSH Qn 2.41 m[IU]/L Normal 0.35 - 3.74 [facility] Comment on above: Performed By: #### 2 05131 #### [facility],[address] [place], [place] [address] URINALYSISon 10-08-2024 Bilirubin Ql (U) Negative Normal NORMAL: NEGATIVE [facility] Comment on above: Performed By: #### 2 07856 #### [facility],[address] [place], [place] [address] Clarity (U) clear Normal NORMAL: CLEAR [facility] Comment on above: Performed By: #### 2 86753 #### [facility],[address] [place], [place] [address] Color (U) yellow Normal NORMAL: YELLOW [facility] Comment on above: Performed By: #### 2 50193 #### [facility],[address] [place] [address] 77190 Glucose Ql (U) NORM Normal NORMAL: NORMAL [facility] Comment on above: Performed By: #### 2 38623 #### [facility],[address] [place] [address] 24562 Hemoglobin Ql (U) Negative Normal NORMAL: NEGATIVE [facility] Comment on above: Performed By: #### 2 88288 #### [facility],[address] [place] [address] 42886 Ketone Negative Normal NORMAL: NEGATIVE [facility] Comment on above: Performed By: #### 2 96568 #### [facility],[address] [place] [address] 14782 Leukocytes Negative Normal NORMAL: NEGATIVE [facility] Comment on above: Performed By: #### 2 66561 #### [facility],[address] [place] [address] Nitrite Ql (U) Negative Normal NORMAL: NEGATIVE [facility] Comment on above: Performed By: #### 2 04776 #### [facility],[address] [place] [address] pH (U) 6 [pH] Normal NORMAL: 5.0-8.0 [facility] Comment on above: Performed By: #### 2 70165 #### [facility],[address] [place] [address] Protein Ql (U) Negative Normal NORMAL: NEGATIVE [facility] Comment on above: Performed By: #### 2 41763 #### [facility],[address] [place] [address] Sp Miles 1.015 Normal NORMAL: 1.010-1.030 [facility] Comment on above: Performed By: #### 2 56052 #### [facility],[address] [place] [address] Specimen Type R Normal [facility] Comment on above: Performed By: #### 2 93979 #### [facility],[address] [place] [address] Urinalysis dipstick W Reflex Microscopic panel (U) NOT INDICATED Normal [facility] Comment on above: Performed By: #### 2 33870 #### [facility],[address] [place] [address] Urobilinog NORM Normal NORMAL: NORMAL [facility] Comment on above: Performed By: #### 2 36077 #### [facility],[address] [place] [address] HbA1c (Bld)on 07-12-2023 Average glucose Estimated from glycated hemoglobin (Bld) [Mass/Vol] 105 mg/dL Normal [facility] Comment on above: Order Comment: Speci men Type: BLOOD SPECIMEN Ordering Facility: [facility] Address: [address] [place] [address] Result Comment: eAG: (Estimated average glucose) is a calculated value from HgbA1c and is field sales representative of the average blood glucose level in the last 2-3 month period. Performed By: #### 5 5454-3 #### [facility] CLIA [id number] [address] [place] [address] [place] HbA1c (Bld) [Mass fraction] 5.3 % Normal 4.3-5.6 [facility] Comment on above: Order Comment: Speci men Type: BLOOD SPECIMEN Ordering Facility: [facility] Address: [address] [place] [address] Result Comment: Amer ican Diabetes Association guidelines indicate that patients with HgbA1c in the range 5.7-6.4% are at increased risk for development of diabetes, and intervention by lifestyle modification may be beneficial. HgbA1c greater or equal to 6.5% is considered diagnostic of diabetes. Performed By: #### 5 5454-3 #### [facility] CLIA [id number] [facility] [place] [address] [place] BETAAon 04-28-2023 Beta-2 Glycoprotein Abs, IgA <10 Normal <=20 [facility] ([place]) Comment on above: Result Comment: Perf ormed By: [employer] [address] [place] [address] Hvac Designer: Dontrell Arce MD, PhD Performed By: #### A PTT #### [address] [address] APCVon 04-27-2023 APC Factor V Resistance 2.9 ratio Normal [facility] ([place]) Comment on above: Result Comment: This APCV result demonstrates no Resistance to Activated Protein C. APC Factor V Resistance Reference Range: <= 2.3 Positive > 2.3 Negative Performed By: #### A PTT #### [address] [address] CIRANon 04-27-2023 Dil Deep Viper Venom 46.2 seconds High 30.0-42.0 [facility] ([place]) Comment on above: Result Comment: DRVV T Confirmation Test Performed: NEGATIVE Performed By: #### A PTT #### [address] [address] [place] Interpretation See Below Normal [facility] ([place]) Comment on above: Result Comment: No e vidence of lupus anticoagulant. Although results may represent valid findings for Lupus Anticoagulant, DRVVT results may be affected by presence of direct thrombin inhibitors, such as argatroban, dabigatran (Pradaxa) and Bivalirudin (Angiomax),and direct Xa inhibitors, such as rivaroxaban (Xarelto) and apixaban (Eliquis). Interpret Lupus Anticoagulant results with clinical correlation. Performed By: #### A PTT #### [place] [id number] [address] [place] [address] Platelet neutraliz. Negative Normal [facility] ([place]) Comment on above: Performed By: #### A PTT #### [place] [id number] PTGENon 04-27-2023 PT Gene Mut Prothrombin Gene Mutation Normal [facility] ([place]) Comment on above: Result Comment: Byron alexander Accession Number: [id number] Result: NORMAL Interpretation: The DNA sample is negative for the c.*97G>A variant (legacy name 33551X>A) in the 3' untranslated region of the Factor II (F2) gene. This result is not associated with an increased risk of thromboembolic disease. Thromboembolic disease is a multifactorial disorder and other causes are not excluded by this result. Methodology: Isolated Genomic DNA from the patient's blood specimen is evaluated for the c*97G>A ([id number]) variant of the F2 gene [RefSeq [id number];GRCh38/hg38] by multiplex polymerase chain reaction (PCR) followed by melting curve analysis. Limitations: This assay is designed to detect the c.*97G>A (65232G>A) variant in the F2 gene. Uncommon variants or single nucleotide polymorphisms may affect binding of probes and may rarely result in false negative, false positive or indeterminate results. This assay does not detect other disease-associated rare variants in F2 or other causes of thromboembolic disease. Disclaimer: This test was developed and its performance characteristics determined by [facility] [place] ([facility]). It has not been cleared or approved by the FDA. [facility] is regulated under CLIA as certified to perform high- complexity testing. This test is used for clinical purposes. It should not be regarded as investigational or for research. Testing and interpretation performed at [facility], [address] [place] [address]. CLIA Number: [id number] References: 1) Inheritied Thrombophilias in . ACOG Practice Bulletin. No. 197. [place] [employer]. Obsete Gynecol 2018;132:e18-34. 2) García SR, Desiree FR, Maia PH, and Yun MARISCAL. A common genetic variation in the 3'-untranslated region of the prothrombin gene is associated with elevated plasma prothrombin levels and an increase in venous thrombosis. Blood 88:3698-703, 1996. 3) Ebony I, Segundo V, Amie C, Chiara K. Prothrombin 25226H>T: 16 new cases, association with the 83999L>G polymorphism, and literature review. J Thromb Haemost. 2009;9:1585-7. As reviewed by Opal Tucker, PhD, HCLD Performed By: [employer] [address] [place] [address]. [place] [address] Hydrometallurgical Engineer: Felix See III, M.D. CLIA#: [id number] Performed By: #### A PTT #### [address] [address] .Auto Diffon 04-26-2023 Basophil, Absolute 0.1 10 3/mcL Normal 0.0-0.3 [facility] ([place]) Comment on above: Performed By: #### A PTT, CBC, ANEU, ADIFF #### [address] [address] Basophils/100 WBC (Bld) 1.2 % Normal 0.0-2.5 [facility] ([place]) Comment on above: Performed By: #### A PTT, CBC, ANEU, ADIFF #### [address] [address] Eosinophil, Absolute 0.1 10 3/mcL Normal 0.0-0.7 [facility] ([place]) Comment on above: Performed By: #### A PTT, CBC, ANEU, ADIFF #### [address] [address] Eosinophils/100 WBC (Bld) 1.4 % Normal 0.0-6.0 [facility] ([place]) Comment on above: Performed By: #### A PTT, CBC, ANEU, ADIFF #### [address] [address] Lymphocyte, Absolute 1.4 10 3/mcL Normal 0.9-4.3 [facility] ([place]) Comment on above: Performed By: #### A PTT, CBC, ANEU, ADIFF #### [address] [address] Lymphocytes/100 WBC (Bld) 13.7 % Low 20.0-40.0 [facility] ([place]) Comment on above: Performed By: #### A PTT, CBC, ANEU, ADIFF #### [address] [address] Monocyte, Absolute 0.7 10 3/mcL Normal 0.1-1.4 [facility] ([place]) Comment on above: Performed By: #### A PTT, CBC, ANEU, ADIFF #### [address] [address] Monocytes/100 WBC (Bld) 7.2 % Normal 2.0-13.0 [facility] ([place]) Comment on above: Performed By: #### A PTT, CBC, ANEU, ADIFF #### [address] [address] Neutrophils/100 WBC (Bld) 76.5 % High 50.0-75.0 [facility] ([place]) Comment on above: Performed By: #### A PTT, CBC, ANEU, ADIFF #### [address] [address] .GFRon 04-26-2022 GFR Non- >60 Normal [facility] ([place]) Comment on above: Result Comment: [...] #### A PTT, CBC, ANEU, ADIFF #### [address] [address] GFR >60 Normal [facility] ([place]) Comment on above: Result Comment: GFR Population [...] #### A PTT, CBC, ANEU, ADIFF #### [address] [address] .NEUABSon 04-26-2023 Neutrophil, Absolute 7.6 10 3/mcL Normal 2.3-8.1 [facility] ([place]) Comment on above: Performed By: #### A PTT, CBC, ANEU, ADIFF #### [address] [address] APTTon 04-26-2023 aPTT Coag (Bld) [Time] 54.6 s High 25.0-35.0 [facility] ([place]) Comment on above: Result Comment: For Heparin anticoagulation therapy, the recommended therapeutic range is: 54-77 seconds (APTT Correlation with Anti-Xa therapeutic range of 0.3-0.7 units/ml). PLEASE REFERENCE THE PHARMACY PROTOCOL FOR DOSING. Performed By: #### A PTT, CBC, ANEU, ADIFF #### [address] [address] Heparin dose (APTT) Heparin IV Normal [facility] ([place]) Comment on above: Performed By: #### A PTT, CBC, ANEU, ADIFF #### [address] [address] AT3on 04-26-2023 Anti-Thrombin III 83 % Low 84-126 [facility] ([place]) Comment on above: Performed By: #### A PTT, CBC, ANEU, ADIFF #### [address] [address] BMPon 04-26-2023 BUN/Creatinine Ratio 30.3 ratio High 10.0-22.0 [facility] ([place]) Comment on above: Performed By: #### A PTT, CBC, ANEU, ADIFF #### [address] [address] Calcium [Mass/Vol] 8.5 mg/dL Low 8.7-10.4 [facility] ([place]) Comment on above: Performed By: #### A PTT, CBC, ANEU, ADIFF #### [address] [address] Chloride [Moles/Vol] 105 mmol/L Normal 98-110 [facility] ([place]) Comment on above: Performed By: #### A PTT, CBC, ANEU, ADIFF #### [address] [address] CO2 [Moles/Vol] 23 mmol/L Normal 22-32 [facility] ([place]) Comment on above: Performed By: #### A PTT, CBC, ANEU, ADIFF #### [address] [address] Creatinine [Mass/Vol] 0.66 mg/dL Normal 0.50-1.20 [facility] ([place]) Comment on above: Performed By: #### A PTT, CBC, ANEU, ADIFF #### [address] [address] Electrolyte Balance 10.0 mEq/L Normal 4.0-15.0 [facility] ([place]) Comment on above: Performed By: #### A PTT, CBC, ANEU, ADIFF #### [address] [address] Glucose [Mass/Vol] 112 mg/dL Normal 82-115 [facility] ([place]) Comment on above: Performed By: #### A PTT, CBC, ANEU, ADIFF #### [address] [address] Potassium [Moles/Vol] 3.0 mmol/L Low 3.5-5.0 [facility] ([place]) Comment on above: Performed By: #### A PTT, CBC, ANEU, ADIFF #### [address] [address] Sodium [Moles/Vol] 138 mmol/L Normal 136-145 [facility] ([place]) Comment on above: Performed By: #### A PTT, CBC, ANEU, ADIFF #### [address] [address] Urea nitrogen [Mass/Vol] 20.0 mg/dL Normal 8.0-22.0 [facility] ([place]) Comment on above: Performed By: #### A PTT, CBC, ANEU, ADIFF #### [address] [address] [facility] 04-26-2023 IgG Cardiolipin Ab <9.0 Normal <15.0 [facility] ([place]) Comment on above: Result Comment: <15 GPL Negative 15-20 GPL Indeterminate >20 GPL Positive The following results were obtained with the [employer] QUANTA Lite RYANNE IgG III TRISH. Cardiolipin [...] others. Clinical correlation is required. Performed By: [id number] [place] [address] Hydrometallurgical Engineer: Felix See III, M.D. CLIA#: [id number] Performed By: #### A PTT #### [address] [address] CARDIMon 04-26-2023 IgM Cardiolipin Ab <9.0 Normal <12.5 [facility] ([place]) Comment on above: Result Comment: <12. 5 MPL Negative 12.5-20 MPL Indeterminate >20 MPL Positive The following results were obtained with the Share Some StyleA Lite RYANNE IgM III TRISH. Cardiolipin IgM [...] others. Clinical correlation is required. Performed By: [id number] [place] [address] Hydrometallurgical Engineer: Felix See III, M.D. CLIA#: [id number] Performed By: #### A PTT #### [address] [address] CBCon 04-26-2023 Erythrocyte distribution width (RBC) [Ratio] 14.2 % Normal 11.5-15.5 [facility] ([place]) Comment on above: Performed By: #### A PTT, CBC, ANEU, ADIFF #### [address] [address] Hematocrit (Bld) [Volume fraction] 36.2 % Normal 34.0-46.0 [facility] ([place]) Comment on above: Performed By: #### A PTT, CBC, ANEU, ADIFF #### [address] [address] Hgb 12.4 G/dL Normal 12.0-16.0 [facility] ([place]) Comment on above: Performed By: #### A PTT, CBC, ANEU, ADIFF #### [address] [address] MCH (RBC) [Entitic mass] 29.2 pg Normal 27.0-33.0 [facility] ([place]) Comment on above: Performed By: #### A PTT, CBC, ANEU, ADIFF #### [place] [address] MCHC 34.1 G/dL Normal 32.0-36.0 [facility] ([place]) Comment on above: Performed By: #### A PTT, CBC, ANEU, ADIFF #### [place] [address] MCV (RBC) [Entitic vol] 85.6 fL Normal 80.0-99.0 [facility] ([place]) Comment on above: Performed By: #### A PTT, CBC, ANEU, ADIFF #### [place] [address] Platelet 144 10 3/mcL Low 150-450 [facility] ([place]) Comment on above: Performed By: #### A PTT, CBC, ANEU, ADIFF #### [place] [address] Platelet mean volume (Bld) [Entitic vol] 7.6 fL Normal 6.6-10.5 [facility] ([place]) Comment on above: Performed By: #### A PTT, CBC, ANEU, ADIFF #### [place] [address] RBC 4.24 10 6/mcL Normal 4.10-5.30 [facility] ([place]) Comment on above: Performed By: #### A PTT, CBC, ANEU, ADIFF #### [place] [address] WBC 9.9 10 3/mcL Normal 4.5-10.8 [facility] ([place]) Comment on above: Performed By: #### A PTT, CBC, ANEU, ADIFF #### [place] [address] LABORATORYOrdered By: Amairani Jhaveri on 04-26-2023 aPTT Coag (PPP) [Time] 54.6 s Invalid Interpretation Code 25.0 - 35.0 seconds Auto Coag SS Heparin dose (APTT) Heparin IV (04/26/23 4:33 AM) Invalid Interpretation Code Auto Coag SS LABORATORYOrdered [...] 46.0 % Workflow SS Hemoglobin (Bld) [Mass/Vol] 12.4 G/dL [...] 04-26-2023 Protein C 98 % Normal >=80 [facility] ([place]) Comment on above: Performed By: #### A PTT, CBC, ANEU, ADIFF #### [address] [address] PRSFAon 04-26-2023 Protein S Free Antigen 85 % Normal 55-124 [facility] ([place]) Comment on above: Result Comment: Prot ein S Type II deficiency (very rare) is not detected by this assay. (Pathophysiology of Haemostasis and Thrombosis 04: 33:202-205 and Thrombosis Haemostasis 2000; 84:918) Performed By: #### A PTT, CBC, ANEU, ADIFF #### [address] [address] .Auto Diffon 04-25-2023 Basophil, Absolute 0.1 10 3/mcL Normal 0.0-0.3 [facility] ([place]) Comment on above: Performed By: #### A PTT, CBC, ANEU, ADIFF #### [address] [address] Basophils/100 WBC (Bld) 0.5 % Normal 0.0-2.5 [facility] ([place]) Comment on above: Performed By: #### A PTT, CBC, ANEU, ADIFF #### [address] [address] Eosinophil, Absolute 0.0 10 3/mcL Normal 0.0-0.7 [facility] ([place]) Comment on above: Performed By: #### A PTT, CBC, ANEU, ADIFF #### [address] [address] Eosinophils/100 WBC (Bld) 0.2 % Normal 0.0-6.0 [facility] ([place]) Comment on above: Performed By: #### A PTT, CBC, ANEU, ADIFF #### [address] [address] Lymphocyte, Absolute 1.3 10 3/mcL Normal 0.9-4.3 [facility] ([place]) Comment on above: Performed By: #### A PTT, CBC, ANEU, ADIFF #### [address] [address] Lymphocytes/100 WBC (Bld) 11.1 % Low 20.0-40.0 [facility] ([place]) Comment on above: Performed By: #### A PTT, CBC, ANEU, ADIFF #### [address] [address] Monocyte, Absolute 0.8 10 3/mcL Normal 0.1-1.4 [facility] ([place]) Comment on above: Performed By: #### A PTT, CBC, ANEU, ADIFF #### [address] [address] Monocytes/100 WBC (Bld) 6.9 % Normal 2.0-13.0 [facility] ([place]) Comment on above: Performed By: #### A PTT, CBC, ANEU, ADIFF #### [address] [address] Neutrophils/100 WBC (Bld) 81.3 % High 50.0-75.0 [facility] ([place]) Comment on above: Performed By: #### A PTT, CBC, ANEU, ADIFF #### [address] [address] .GFRon 04-25-2023 GFR Non- >60 Normal [facility] ([place]) Comment on above: Result Comment: GFR Population [...] #### A PTT, CBC, ANEU, ADIFF #### [address] [address] GFR >60 Normal [facility] ([place]) Comment on above: Result Comment: GFR Population [...] #### A PTT, CBC, ANEU, ADIFF #### [address] [address] .NEUABSon 04-25-2023 Neutrophil, Absolute 9.4 10 3/mcL High 2.3-8.1 [facility] ([place]) Comment on above: Performed By: #### A PTT, CBC, ANEU, ADIFF #### [place] [address] A1Con 04-25-2023 HbA1c (Bld) [Mass fraction] 5.4 % Normal 4.0-6.0 [facility] ([place]) Comment on above: Performed By: #### A PTT #### [place] [address] ANAon 04-25-2023 Nuclear Ab IF (S) [Titer] 40 {titer} Normal Neg 40 [facility] ([place]) Comment on above: Result Comment: OLIVER Screen and Titer methodology is an immunofluorescent technique utilizing Hep2 Substrate. Performed By: #### A PTT, CBC, ANEU, ADIFF #### [place] [address] APTTon 04-25-2023 aPTT Coag (Bld) [Time] 55.7 s High 25.0-35.0 [facility] ([place]) Comment on above: Result Comment: For Heparin anticoagulation therapy, the recommended therapeutic range is: 54-77 seconds (APTT Correlation with Anti-Xa therapeutic range of 0.3-0.7 units/ml). PLEASE REFERENCE THE PHARMACY PROTOCOL FOR DOSING. Performed By: #### A PTT #### [address] [address] Heparin dose (APTT) Unknown Normal [facility] ([place]) Comment on above: Performed By: #### A PTT #### [address] [address] aPTT Coag (Bld) [Time] 56.9 s High 25.0-35.0 [facility] ([place]) Comment on above: Result Comment: For Heparin anticoagulation therapy, the recommended therapeutic range is: 54-77 seconds (APTT Correlation with Anti-Xa therapeutic range of 0.3-0.7 units/ml). PLEASE REFERENCE THE PHARMACY PROTOCOL FOR DOSING. Performed By: #### A PTT, CBC, ANEU, ADIFF #### [place] [id number] Heparin dose (APTT) Heparin IV Normal [facility] ([place]) Comment on above: Performed By: #### A PTT, CBC, ANEU, ADIFF #### [place] [id number] aPTT Coag (Bld) [Time] 52.6 s High 25.0-35.0 [facility] ([place]) Comment on above: Result Comment: For Heparin anticoagulation therapy, the recommended therapeutic range is: 54-77 seconds (APTT Correlation with Anti-Xa therapeutic range of 0.3-0.7 units/ml). PLEASE REFERENCE THE PHARMACY PROTOCOL FOR DOSING. Performed By: #### A PTT #### [place] [id number] Heparin dose (APTT) Heparin IV Normal [facility] ([place]) Comment on above: Performed By: #### A PTT #### [place] [id number] aPTT Coag (Bld) [Time] 59.4 s High 25.0-35.0 [facility] ([place]) Comment on above: Result Comment: For Heparin anticoagulation therapy, the recommended therapeutic range is: 54-77 seconds (APTT Correlation with Anti-Xa therapeutic range of 0.3-0.7 units/ml). PLEASE REFERENCE THE PHARMACY PROTOCOL FOR DOSING. Performed By: #### A PTT, CBC, ANEU, ADIFF #### [address] [address] Heparin dose (APTT) Heparin IV Normal [facility] ([place]) Comment on above: Performed By: #### A PTT, CBC, ANEU, ADIFF #### [address] [address] BMPon 04-25-2023 BUN/Creatinine Ratio 35.2 ratio High 10.0-22.0 [facility] ([place]) Comment on above: Performed By: #### A PTT, CBC, ANEU, ADIFF #### [place] [id number] Calcium [Mass/Vol] 8.7 mg/dL Normal 8.7-10.4 [facility] ([place]) Comment on above: Performed By: #### A PTT, CBC, ANEU, ADIFF #### [place] [id number] Chloride [Moles/Vol] 105 mmol/L Normal 98-110 [facility] ([place]) Comment on above: Performed By: #### A PTT, CBC, ANEU, ADIFF #### [place] [id number] CO2 [Moles/Vol] 23 mmol/L Normal 22-32 [facility] ([place]) Comment on above: Performed By: #### A PTT, CBC, ANEU, ADIFF #### [place] [id number] Creatinine [Mass/Vol] 0.71 mg/dL Normal 0.50-1.20 [facility] ([place]) Comment on above: Performed By: #### A PTT, CBC, ANEU, ADIFF #### [place] [id number] Electrolyte Balance 11.0 mEq/L Normal 4.0-15.0 [facility] ([place]) Comment on above: Performed By: #### A PTT, CBC, ANEU, ADIFF #### [place] [id number] Glucose [Mass/Vol] 127 mg/dL High 82-115 [facility] ([place]) Comment on above: Performed By: #### A PTT, CBC, ANEU, ADIFF #### [place] [id number] Potassium [Moles/Vol] 3.2 mmol/L Low 3.5-5.0 [facility] ([place]) Comment on above: Performed By: #### A PTT, CBC, ANEU, ADIFF #### [place] [id number] Sodium [Moles/Vol] 139 mmol/L Normal 136-145 [facility] ([place]) Comment on above: Performed By: #### A PTT, CBC, ANEU, ADIFF #### [place] [address] Urea nitrogen [Mass/Vol] 25.0 mg/dL High 8.0-22.0 [facility] ([place]) Comment on above: Performed By: #### A PTT, CBC, ANEU, ADIFF #### [place] [address] CBCon 04-25-2023 Erythrocyte distribution width (RBC) [Ratio] 14.2 % Normal 11.5-15.5 [facility] ([place]) Comment on above: Performed By: #### A PTT, CBC, ANEU, ADIFF #### [place] [address] Hematocrit (Bld) [Volume fraction] 36.3 % Normal 34.0-46.0 [facility] ([place]) Comment on above: Performed By: #### A PTT, CBC, ANEU, ADIFF #### [place] [id number] Hgb 12.3 G/dL Normal 12.0-16.0 [facility] ([place]) Comment on above: Performed By: #### A PTT, CBC, ANEU, ADIFF #### [place] [address] MCH (RBC) [Entitic mass] 29.0 pg Normal 27.0-33.0 [facility] ([place]) Comment on above: Performed By: #### A PTT, CBC, ANEU, ADIFF #### [address] [address] MCHC 33.8 G/dL Normal 32.0-36.0 [facility] ([place]) Comment on above: Performed By: #### A PTT, CBC, ANEU, ADIFF #### [address] [address] MCV (RBC) [Entitic vol] 85.9 fL Normal 80.0-99.0 [facility] ([place]) Comment on above: Performed By: #### A PTT, CBC, ANEU, ADIFF #### [place] [id number] Platelet 164 10 3/mcL Normal 150-450 [facility] ([place]) Comment on above: Performed By: #### A PTT, CBC, ANEU, ADIFF #### [place] [address] Platelet mean volume (Bld) [Entitic vol] 7.7 fL Normal 6.6-10.5 [facility] ([place]) Comment on above: Performed By: #### A PTT, CBC, ANEU, ADIFF #### [place] [id number] RBC 4.22 10 6/mcL Normal 4.10-5.30 [facility] ([place]) Comment on above: Performed By: #### A PTT, CBC, ANEU, ADIFF #### [place] [id number] WBC 11.5 10 3/mcL High 4.5-10.8 [facility] ([place]) Comment on above: Performed By: #### A PTT, CBC, ANEU, ADIFF #### [place] [address] LABORATORYOrdered By: Aysha Ramirez on 04-25-2023 aPTT [...] fL AH Workflow SS Monocytes (Bld) [#/Vol] 0.8 103/mcL Invalid Interpretation Code 0.1 - 1.4 10^3/mcL AH Workflow SS Monocytes/100 WBC (Bld) 6.9 % Invalid Interpretation Code 2.0 - 13.0 % AH Workflow SS Neutrophils (Bld) [#/Vol] 9.4 103/mcL [...] 04-25-2023 Magnesium [Mass/Vol] 2.3 mg/dL Normal 1.6-2.4 [facility] ([place]) Comment on above: Performed By: #### A PTT, CBC, ANEU, ADIFF #### [address] [address] PHOSon 04-25-2023 Phosphate [Mass/Vol] 2.9 mg/dL Normal 2.4-5.1 [facility] ([place]) Comment on above: Result Comment: No te - New Reference Range in effect 20 Performed By: #### A PTT, CBC, ANEU, ADIFF #### [address] [address] XR CHEST 1 VIEWon 04-25-2023 XR CHEST [...] 04/25/2023 7:41:49 AM Ordering Provider: BUD PHAM Normal [facility] ([place]) .Auto Diffon 04-24-2023 Basophil, Absolute 0.0 10 3/mcL Normal 0.0-0.3 [facility] ([place]) Comment on above: Performed By: #### A PTT, CBC, ANEU, ADIFF #### [address] [address] Basophils/100 WBC (Bld) 0.3 % Normal 0.0-2.5 [facility] ([place]) Comment on above: Performed By: #### A PTT, CBC, ANEU, ADIFF #### [address] [address] Eosinophil, Absolute 0.0 10 3/mcL Normal 0.0-0.7 [facility] ([place]) Comment on above: Performed By: #### A PTT, CBC, ANEU, ADIFF #### [address] [address] Eosinophils/100 WBC (Bld) 0.3 % Normal 0.0-6.0 [facility] ([place]) Comment on above: Performed By: #### A PTT, CBC, ANEU, ADIFF #### [address] [address] Lymphocyte, Absolute 0.8 10 3/mcL Low 0.9-4.3 [facility] ([place]) Comment on above: Performed By: #### A PTT, CBC, ANEU, ADIFF #### [address] [address] Lymphocytes/100 WBC (Bld) 6.9 % Low 20.0-40.0 [facility] ([place]) Comment on above: Performed By: #### A PTT, CBC, ANEU, ADIFF #### [address] [address] Monocyte, Absolute 0.7 10 3/mcL Normal 0.1-1.4 [facility] ([place]) Comment on above: Performed By: #### A PTT, CBC, ANEU, ADIFF #### [address] [address] Monocytes/100 WBC (Bld) 6.0 % Normal 2.0-13.0 [facility] ([place]) Comment on above: Performed By: #### A PTT, CBC, ANEU, ADIFF #### [address] [address] Neutrophils/100 WBC (Bld) 86.5 % High 50.0-75.0 [facility] ([place]) Comment on above: Performed By: #### A PTT, CBC, ANEU, ADIFF #### [address] [address] .GFRon 04-24-2023 GFR >60 Normal [facility] ([place]) Comment on above: Result Comment: GFR Population [...] BC, GFR, ANEU, ADIFF, PBNP, CMP #### [place] [address] GFR Non- >60 Normal [facility] ([place]) Comment on above: Result Comment: GFR Population [...] BC, GFR, ANEU, ADIFF, PBNP, CMP #### [address] [address] .NEUABSon 04-24-2023 Neutrophil, Absolute 10.0 10 3/mcL High 2.3-8.1 A [facility] ([place]) Comment on above: Performed By: #### A PTT, CBC, ANEU, ADIFF #### [address] [address] APTTon 04-24-2023 aPTT Coag (Bld) [Time] 38.2 s High 25.0-35.0 [facility] ([place]) Comment on above: Result Comment: For Heparin anticoagulation therapy, the recommended therapeutic range is: 54-77 seconds (APTT Correlation with Anti-Xa therapeutic range of 0.3-0.7 units/ml). PLEASE REFERENCE THE PHARMACY PROTOCOL FOR DOSING. Performed By: #### A PTT, CBC, ANEU, ADIFF #### [address] [address] Heparin dose (APTT) Unknown Normal [facility] ([place]) Comment on above: Performed By: #### A PTT, CBC, ANEU, ADIFF #### [address] [address] aPTT Coag (Bld) [Time] 52.8 s High 25.0-35.0 [facility] ([place]) Comment on above: Result Comment: For Heparin anticoagulation therapy, the recommended therapeutic range is: 54-77 seconds (APTT Correlation with Anti-Xa therapeutic range of 0.3-0.7 units/ml). PLEASE REFERENCE THE PHARMACY PROTOCOL FOR DOSING. Performed By: #### C BC, GFR, ANEU, ADIFF, PBNP, CMP #### [address] [address] Heparin dose (APTT) Heparin IV Normal [facility] ([place]) Comment on above: Performed By: #### C BC, GFR, ANEU, ADIFF, PBNP, CMP #### [address] [address] aPTT Coag (Bld) [Time] 102.1 s High 25.0-35.0 [facility] ([place]) Comment on above: Result Comment: For Heparin anticoagulation therapy, the recommended therapeutic range is: 54-77 seconds (APTT Correlation with Anti-Xa therapeutic range of 0.3-0.7 units/ml). PLEASE REFERENCE THE PHARMACY PROTOCOL FOR DOSING. Performed By: #### A PTT, CBC, ANEU, ADIFF #### [place] [address] Heparin dose (APTT) Heparin IV Normal [facility] ([place]) Comment on above: Performed By: #### A PTT, CBC, ANEU, ADIFF #### [place] [id number] CBCon 04-24-2023 Erythrocyte distribution width (RBC) [Ratio] 13.8 % Normal 11.5-15.5 [facility] ([place]) Comment on above: Performed By: #### A PTT, CBC, ANEU, ADIFF #### [place] [id number] Hematocrit (Bld) [Volume fraction] 39.3 % Normal 34.0-46.0 [facility] ([place]) Comment on above: Performed By: #### A PTT, CBC, ANEU, ADIFF #### [place] [address] Hgb 13.3 G/dL Normal 12.0-16.0 [facility] ([place]) Comment on above: Performed By: #### A PTT, CBC, ANEU, ADIFF #### [address] [address] MCH (RBC) [Entitic mass] 29.1 pg Normal 27.0-33.0 [facility] ([place]) Comment on above: Performed By: #### A PTT, CBC, ANEU, ADIFF #### [place] [id number] MCHC 33.7 G/dL Normal 32.0-36.0 [facility] ([place]) Comment on above: Performed By: #### A PTT, CBC, ANEU, ADIFF #### [place] [id number] MCV (RBC) [Entitic vol] 86.2 fL Normal 80.0-99.0 [facility] ([place]) Comment on above: Performed By: #### A PTT, CBC, ANEU, ADIFF #### [place] [id number] Platelet 176 10 3/mcL Normal 150-450 [facility] ([place]) Comment on above: Performed By: #### A PTT, CBC, ANEU, ADIFF #### [place] [address] Platelet mean volume (Bld) [Entitic vol] 7.9 fL Normal 6.6-10.5 [facility] ([place]) Comment on above: Performed By: #### A PTT, CBC, ANEU, ADIFF #### [place] [id number] RBC 4.56 10 6/mcL Normal 4.10-5.30 [facility] ([place]) Comment on above: Performed By: #### A PTT, CBC, ANEU, ADIFF #### [place] [id number] WBC 11.6 10 3/mcL High 4.5-10.8 [facility] ([place]) Comment on above: Performed By: #### A PTT, CBC, ANEU, ADIFF #### [place] [address] CMPon 04-24-2023 Albumin Level 3.3 G/dL Normal 3.2-4.8 [facility] ([place]) Comment on above: Order Comment: redra w due to hemolysis Performed By: #### C BC, GFR, ANEU, ADIFF, PBNP, CMP #### [place] [address] Albumin/Globulin [Mass ratio] 0.9 {ratio} Normal 0.9-1.6 [facility] ([place]) Comment on above: Order Comment: redra w due to hemolysis Performed By: #### C BC, GFR, ANEU, ADIFF, PBNP, CMP #### [place] [id number] ALP [Catalytic activity/Vol] 130 U/L High 38-126 [facility] ([place]) Comment on above: Order Comment: redra w due to hemolysis Performed By: #### C BC, GFR, ANEU, ADIFF, PBNP, CMP #### [place] [id number] ALT [Catalytic activity/Vol] 24 U/L Normal 10-49 [facility] ([place]) Comment on above: Order Comment: redra w due to hemolysis Performed By: #### C BC, GFR, ANEU, ADIFF, PBNP, CMP #### [address] [address] AST [Catalytic activity/Vol] 20 U/L Normal 8-34 [facility] ([place]) Comment on above: Order Comment: redra w due to hemolysis Performed By: #### C BC, GFR, ANEU, ADIFF, PBNP, CMP #### [address] [address] Bili Total 0.60 mg/dL Normal 0.20-1.20 [facility] ([place]) Comment on above: Order Comment: redra w due to hemolysis Result Comment: Use of this assay is not recommended for patients undergoing treatment with eltrombopag due to the potential for falsely elevated results. Performed By: #### C BC, GFR, ANEU, ADIFF, PBNP, CMP #### [place] [id number] BUN/Creatinine Ratio 28.8 ratio High 10.0-22.0 [facility] ([place]) Comment on above: Order Comment: redra w due to hemolysis Performed By: #### C BC, GFR, ANEU, ADIFF, PBNP, CMP #### [address] [address] Calcium [Mass/Vol] 9.0 mg/dL Normal 8.7-10.4 [facility] ([place]) Comment on above: Order Comment: redra w due to hemolysis Performed By: #### C BC, GFR, ANEU, ADIFF, PBNP, CMP #### [address] [address] Chloride [Moles/Vol] 104 mmol/L Normal 98-110 [facility] ([place]) Comment on above: Order Comment: redra w due to hemolysis Performed By: #### C BC, GFR, ANEU, ADIFF, PBNP, CMP #### [address] [address] CO2 [Moles/Vol] 24 mmol/L Normal 22-32 [facility] ([place]) Comment on above: Order Comment: redra w due to hemolysis Performed By: #### C BC, GFR, ANEU, ADIFF, PBNP, CMP #### [address] [address] Creatinine [Mass/Vol] 0.73 mg/dL Normal 0.50-1.20 [facility] ([place]) Comment on above: Order Comment: redra w due to hemolysis Performed By: #### C BC, GFR, ANEU, ADIFF, PBNP, CMP #### [address] [address] Electrolyte Balance 10.0 mEq/L Normal 4.0-15.0 [facility] ([place]) Comment on above: Order Comment: redra w due to hemolysis Performed By: #### C BC, GFR, ANEU, ADIFF, PBNP, CMP #### [address] [address] Globulin 3.5 G/dL Normal 1.5-3.8 [facility] ([place]) Comment on above: Order Comment: redra w due to hemolysis Performed By: #### C BC, GFR, ANEU, ADIFF, PBNP, CMP #### [address] [address] Glucose [Mass/Vol] 130 mg/dL High 82-115 [facility] ([place]) Comment on above: Order Comment: redra w due to hemolysis Performed By: #### C BC, GFR, ANEU, ADIFF, PBNP, CMP #### [address] [address] Potassium [Moles/Vol] 4.1 mmol/L Normal 3.5-5.0 [facility] ([place]) Comment on above: Order Comment: redra w due to hemolysis Performed By: #### C BC, GFR, ANEU, ADIFF, PBNP, CMP #### [address] [address] Sodium [Moles/Vol] 138 mmol/L Normal 136-145 [facility] ([place]) Comment on above: Order Comment: redra w due to hemolysis Performed By: #### C BC, GFR, ANEU, ADIFF, PBNP, CMP #### [address] [address] Total Protein 6.8 G/dL Normal 5.7-8.2 [facility] ([place]) Comment on above: Order Comment: redra w due to hemolysis Result Comment: No te - New Reference Range in effect 20 Performed By: #### C BC, GFR, ANEU, ADIFF, PBNP, CMP #### [address] [address] Urea nitrogen [Mass/Vol] 21.0 mg/dL Normal 8.0-22.0 [facility] ([place]) Comment on above: Order Comment: redra w due to hemolysis Performed By: #### C BC, GFR, ANEU, ADIFF, PBNP, CMP #### [address] [address] HOMOon 04-24-2023 Homocysteine 10.5 umol/l Normal 3.7-13.9 [facility] ([place]) Comment on above: Result Comment: No te - New Reference Range in effect 20 Performed By: #### A PTT, CBC, ANEU, ADIFF #### [address] [address] IR PULMONARY ANGIO/EKOS CATH PLACEon 04-24-[address] ANGIO/EKOS CATH PLACE ORIGINAL Images acquired, not reported on this accession number. Normal [facility] ([place]) LABORATORYOrdered By: SYSTEM SYSTEM on 04-24-2023 Albumin BCP dye [Mass/Vol] 3.3 G/dL Invalid Interpretation Code 3.2 - 4.8 G/dL ADM SS Albumin/Globulin [Mass ratio] 0.9 {ratio} Invalid Interpretation Code 0.9 - 1.6 ratio ADM SS ALP [Catalytic activity/Vol] 130 U/L [...] Code 3.5 - 5.0 mEq/L ADM SS Protein [Mass/Vol] 6.8 G/dL Invalid Interpretation Code 5.7 - 8.2 G/dL ADM SS RBC (Bld) [#/Vol] 4.56 106/mcL [...] % AH Auto Coag SS LABORATORYOrdered By: CLEV_C WHITNEY CONTRIBUTOR_SYSTEM on 04-24-2023 Beta-2 Glycoprotein Abs, IgA MANISHA Invalid Interpretation Code <=20SAU Sendouts SS Comment on above: Result Comment: Perf ormed By: [employer] [address] [place] [address] Hvac Designer: Dontrell Arce MD, PhD IgG Cardiolipin Ab GPL Invalid Interpretation Code <15.0GPL Sendouts Comment on above: Result Comment: <15 GPL [...] others. Clinical correlation is required. Performed By: [place] [address] Hydrometallurgical Engineer: Felix See III, M.D. CLIA#: [id number] IgM Cardiolipin Ab MPL Invalid Interpretation Code <12.5MPL Sendouts Comment on above: Result Comment: <12. 5 [...] others. Clinical correlation is required. Performed By: [place] [address] Hydrometallurgical Engineer: Felix See III, M.D. CLIA#: [id number] PT Gene Mut Prothrombin Gene Mutation Invalid Interpretation Code [facility] Comment on above: Result Comment: Hebertcox monett Accession Number: [id number] Result: NORMAL Interpretation: The DNA sample is negative for the c.*97G>A variant (legacy name 94422G>A) in the 3' untranslated region of the Factor II (F2) gene. This result is not associated with an increased risk of thromboembolic disease. Thromboembolic disease is a multifactorial disorder and other causes are not excluded by this result. Methodology: Isolated Genomic DNA from the patient's blood specimen is evaluated for the c*97G>A ([id number]) variant of the F2 gene [RefSeq [id number];GRCh38/hg38] by multiplex polymerase chain reaction (PCR) followed by melting curve analysis. Limitations: This assay is designed to detect the c.*97G>A (65289I>A) variant in the F2 gene. Uncommon variants or single nucleotide polymorphisms may affect binding of probes and may rarely result in false negative, false positive or indeterminate results. This assay does not detect other disease-associated rare variants in F2 or other causes of thromboembolic disease. Disclaimer: This test was developed and its performance characteristics determined by [facility] [place] ([facility]). It has not been cleared or approved by the FDA. [facility] is regulated under CLIA as certified to perform high- complexity testing. This test is used for clinical purposes. It should not be regarded as investigational or for research. Testing and interpretation performed at [facility], [address] [place] [address]. CLIA Number: [id number] References: 1) Inheritied Thrombophilias in . ACOG Practice Bulletin. No. 197. [place] [employer]. Obsete Gynecol 2018;132:e18-34. 2) Jjt SR, Desiree FR, Redaniel PH, and Yun MARISCAL. A common genetic variation in the 3'-untranslated region of the prothrombin gene is associated with elevated plasma prothrombin levels and an increase in venous thrombosis. Blood 88:3698-703, 1995. 3) Ebony I, Segundo V, Amie C, Chiara K. Prothrombin 07899N>T: 16 new cases, association with the 42653D>G polymorphism, and literature review. J Thromb Haemost. 2009;9:1585-7. As reviewed by Opal Tucker, PhD, HCLD Performed By: [employer] [facility]. [place] [address] Hydrometallurgical Engineer: Felix See III, M.D. CLIA#: [id number] LABORATORYOrdered By: Neftali Tijerina on 04-24-2023 Nuclear Ab IF Ql (S) Neg 40 (04/24/23 4:12 PM) Invalid Interpretation Code Neg 40 AH Man Viro/Sero SS LABORATORYOrdered By: Samantha Villasenor on 04-24-2023 Blood Glucose Testing Reason Routine (04/24/23 11:30 AM) [facility] Glucose [Mass/Vol] 131 mg/dL Invalid Interpretation Code 82 - 115 mg/dL [facility] MGon 04-24-2023 Magnesium [Mass/Vol] 2.3 mg/dL Normal 1.6-2.4 [facility] ([place]) Comment on above: Performed By: #### C BC, GFR, ANEU, ADIFF, PBNP, CMP #### [address] [address] PHOSon 04-24-2023 Phosphate [Mass/Vol] 2.5 mg/dL Normal 2.4-5.1 [facility] ([place]) Comment on above: Result Comment: No te - New Reference Range in effect 20 Performed By: #### C BC, GFR, ANEU, ADIFF, PBNP, CMP #### [address] [address] XR CHEST 1 VIEWon 04-24-2023 XR CHEST 1 VIEW ORIGINAL EXAMINATION: ONE XRAY VIEW OF THE CHEST04/24/2023 6:20 pm CHEST ONE VIEW AP/PA COMPARISON: 04/24/2023 HISTORY: ORDERING SYSTEM PROVIDED HISTORY: Reason for Exam: pain/[id number] ^ FINDINGS: Lines/Tubes: None. Interval removal of [...] 04/24/2023 7:18:41 PM Ordering Provider: LEONA MCNAIR [facility]) XR CHEST 1 VIEW ORIGINAL EXAMINATION: ONE [...] 04/24/2023 1:23:03 PM Ordering Provider: FELIPE HAWTHORNE [facility]) APTTon 04-23-2023 aPTT Coag (Bld) [Time] 93.3 s High 25.0-35.0 [facility]) Comment on above: Result Comment: For Heparin anticoagulation therapy, the recommended therapeutic range is: 54-77 seconds (APTT Correlation with Anti-Xa therapeutic range of 0.3-0.7 units/ml). PLEASE REFERENCE THE PHARMACY PROTOCOL FOR DOSING. Performed By: #### A PTT, CBC, ANEU, ADIFF #### [address] [address] Heparin dose (APTT) Heparin IV [facility] ([place]) Comment on above: Performed By: #### A PTT, CBC, ANEU, ADIFF #### [address] [address] aPTT Coag (Bld) [Time] 59.6 s High 25.0-35.0 [facility]) Comment on above: Result Comment: For Heparin anticoagulation therapy, the recommended therapeutic range is: 54-77 seconds (APTT Correlation with Anti-Xa therapeutic range of 0.3-0.7 units/ml). PLEASE REFERENCE THE PHARMACY PROTOCOL FOR DOSING. Performed By: #### A PTT, CBC, ANEU, ADIFF #### [address] [address] Heparin dose (APTT) Heparin IV Normal [facility] ([place]) Comment on above: Performed By: #### A PTT, CBC, ANEU, ADIFF #### [address] [address] aPTT Coag (Bld) [Time] 76.6 s High 25.0-35.0 [facility] ([place]) Comment on above: Result Comment: For Heparin anticoagulation therapy, the recommended therapeutic range is: 54-77 seconds (APTT Correlation with Anti-Xa therapeutic range of 0.3-0.7 units/ml). PLEASE REFERENCE THE PHARMACY PROTOCOL FOR DOSING. Performed By: #### A PTT, CBC, ANEU, ADIFF #### [address] [address] Heparin dose (APTT) Heparin IV Normal [facility] ([place]) Comment on above: Performed By: #### A PTT, CBC, ANEU, ADIFF #### [address] [address] LABORATORYOrdered By: Angeli Shaffer on 04-23-2023 Lactate [Moles/Vol] 1.7 mmol/L Invalid Interpretation Code 0.2 - 2.0 mmol/L AH Auto Chem SS LABORATORYOrdered By: SYSTEM SYSTEM on 04-23-2023 Troponin I.cardiac DL <= 0.01 ng/mL [Mass/Vol] 117.43 ng/L Invalid Interpretation Code 0.00 - 34.00 ng/L AH ADM SS Troponin I.cardiac DL <= 0.01 ng/mL [Mass/Vol] 204.26 ng/L Invalid Interpretation Code 0.00 - 34.00 ng/L ADM SS LACon 04-23-2023 Lactic Acid Lvl 1.7 mmol/L Normal 0.2-2.0 [facility] ([place]) Comment on above: Performed By: #### A PTT, CBC, ANEU, ADIFF #### [address] [address] TROPHSon 04-23-2023 Troponin I High Sensitivity 117.43 ng/L High 0.00-34.00 [facility] ([place]) Comment on above: Result Comment: If t he High Sensitive Troponin result is below the 99th percentile value (<45 ng/L) at the first blood draw, at least two additional blood samples should be drawn before results are interpreted as negative for AMI. Performed By: #### A PTT #### [place] [address] Troponin I High Sensitivity 204.26 ng/L High 0.00-34.00 [facility] ([place]) Comment on above: Result Comment: If t he High Sensitive Troponin result is below the 99th percentile value (<45 ng/L) at the first blood draw, at least two additional blood samples should be drawn before results are interpreted as negative for AMI. Performed By: #### A PTT, CBC, ANEU, ADIFF #### [address] [address] .Auto Diffon 04-22-2023 Basophil, Absolute 0.0 10 3/mcL Normal 0.0-0.3 [facility] ([place]) Comment on above: Performed By: #### C BC, GFR, ANEU, ADIFF, PBNP, CMP #### [address] [address] Basophils/100 WBC (Bld) 0.2 % Normal 0.0-2.5 [facility] ([place]) Comment on above: Performed By: #### C BC, GFR, ANEU, ADIFF, PBNP, CMP #### [address] [address] Eosinophil, Absolute 0.1 10 3/mcL Normal 0.0-0.7 [facility] ([place]) Comment on above: Performed By: #### C BC, GFR, ANEU, ADIFF, PBNP, CMP #### [address] [address] Eosinophils/100 WBC (Bld) 0.5 % Normal 0.0-6.0 [facility] ([place]) Comment on above: Performed By: #### C BC, GFR, ANEU, ADIFF, PBNP, CMP #### [address] [address] Lymphocyte, Absolute 1.4 10 3/mcL Normal 0.9-4.3 [facility] ([place]) Comment on above: Performed By: #### C BC, GFR, ANEU, ADIFF, PBNP, CMP #### [address] [address] Lymphocytes/100 WBC (Bld) 13.1 % Low 20.0-40.0 [facility] ([place]) Comment on above: Performed By: #### C BC, GFR, ANEU, ADIFF, PBNP, CMP #### [address] [address] Monocyte, Absolute 0.6 10 3/mcL Normal 0.1-1.4 [facility] ([place]) Comment on above: Performed By: #### C BC, GFR, ANEU, ADIFF, PBNP, CMP #### [address] [address] Monocytes/100 WBC (Bld) 5.4 % Normal 2.0-13.0 [facility] ([place]) Comment on above: Performed By: #### C BC, GFR, ANEU, ADIFF, PBNP, CMP #### [address] [address] Neutrophils/100 WBC (Bld) 80.8 % High 50.0-75.0 [facility] ([place]) Comment on above: Performed By: #### C BC, GFR, ANEU, ADIFF, PBNP, CMP #### [address] [address] .GFRon 04-22-2023 GFR Non- >60 Normal [facility] ([place]) Comment on above: Result Comment: GFR Population [...] BC, GFR, ANEU, ADIFF, PBNP, CMP #### [address] [address] GFR >60 Normal [facility] ([place]) Comment on above: Result Comment: GFR Population [...] BC, GFR, ANEU, ADIFF, PBNP, CMP #### [address] [address] .NEUABSon 04-22-2023 Neutrophil, Absolute 8.7 10 3/mcL High 2.3-8.1 [facility] ([place]) Comment on above: Performed By: #### C BC, GFR, ANEU, ADIFF, PBNP, CMP #### [address] [address] APTTon 04-22-2023 aPTT Coag (Bld) [Time] 132.1 s Critically abnormal 25.0-35.0 [facility] ([place]) Comment on above: Result Comment: For Heparin anticoagulation therapy, the recommended therapeutic range is: 54-77 seconds (APTT Correlation with Anti-Xa therapeutic range of 0.3-0.7 units/ml). PLEASE REFERENCE THE PHARMACY PROTOCOL FOR DOSING. Performed By: #### A PTT #### [place] [address] Heparin dose (APTT) Heparin IV Normal [facility] ([place]) Comment on above: Performed By: #### A PTT #### [place] [id number] CBCon 04-22-2023 Erythrocyte distribution width (RBC) [Ratio] 14.0 % Normal 11.5-15.5 [facility] ([place]) Comment on above: Performed By: #### C BC, GFR, ANEU, ADIFF, PBNP, CMP #### [place] [address] Hematocrit (Bld) [Volume fraction] 40.6 % Normal 34.0-46.0 [facility] ([place]) Comment on above: Performed By: #### C BC, GFR, ANEU, ADIFF, PBNP, CMP #### [place] [address] Hgb 13.9 G/dL Normal 12.0-16.0 [facility] ([place]) Comment on above: Performed By: #### C BC, GFR, ANEU, ADIFF, PBNP, CMP #### [place] [address] MCH (RBC) [Entitic mass] 29.4 pg Normal 27.0-33.0 [facility] ([place]) Comment on above: Performed By: #### C BC, GFR, ANEU, ADIFF, PBNP, CMP #### [place] [address] MCHC 34.3 G/dL Normal 32.0-36.0 [facility] ([place]) Comment on above: Performed By: #### C BC, GFR, ANEU, ADIFF, PBNP, CMP #### [place] [address] MCV (RBC) [Entitic vol] 85.9 fL Normal 80.0-99.0 [facility] ([place]) Comment on above: Performed By: #### C BC, GFR, ANEU, ADIFF, PBNP, CMP #### [place] [address] Platelet 181 10 3/mcL Normal 150-450 [facility] ([place]) Comment on above: Performed By: #### C BC, GFR, ANEU, ADIFF, PBNP, CMP #### [place] [address] Platelet mean volume (Bld) [Entitic vol] 7.8 fL Normal 6.6-10.5 [facility] ([place]) Comment on above: Performed By: #### C BC, GFR, ANEU, ADIFF, PBNP, CMP #### [place] [id number] RBC 4.73 10 6/mcL Normal 4.10-5.30 [facility] ([place]) Comment on above: Performed By: #### C BC, GFR, ANEU, ADIFF, PBNP, CMP #### [place] [id number] WBC 10.8 10 3/mcL Normal 4.5-10.8 [facility] ([place]) Comment on above: Performed By: #### C BC, GFR, ANEU, ADIFF, PBNP, CMP #### [place] [address] CMPon 04-22-2023 Albumin Level 3.7 G/dL Normal 3.2-4.8 [facility] ([place]) Comment on above: Performed By: #### C BC, GFR, ANEU, ADIFF, PBNP, CMP #### [place] [address] Albumin/Globulin [Mass ratio] 1.3 {ratio} Normal 0.9-1.6 [facility] ([place]) Comment on above: Performed By: #### C BC, GFR, ANEU, ADIFF, PBNP, CMP #### [place] [address] ALP [Catalytic activity/Vol] 112 U/L Normal 38-126 [facility] ([place]) Comment on above: Performed By: #### C BC, GFR, ANEU, ADIFF, PBNP, CMP #### [facility] [address] [place], [place] [address] ALT [Catalytic activity/Vol] 23 U/L Normal 10-49 [facility] ([place]) Comment on above: Performed By: #### C BC, GFR, ANEU, ADIFF, PBNP, CMP #### [address] [address] AST [Catalytic activity/Vol] 21 U/L Normal 8-34 [facility] ([place]) Comment on above: Performed By: #### C BC, GFR, ANEU, ADIFF, PBNP, CMP #### [address] [address] Bili Total 0.70 mg/dL Normal 0.20-1.20 [facility] ([place]) Comment on above: Result Comment: Use of this assay is not recommended for patients undergoing treatment with eltrombopag due to the potential for falsely elevated results. Performed By: #### C BC, GFR, ANEU, ADIFF, PBNP, CMP #### [place] [id number] BUN/Creatinine Ratio 24.6 ratio High 10.0-22.0 [facility] ([place]) Comment on above: Performed By: #### C BC, GFR, ANEU, ADIFF, PBNP, CMP #### [address] [address] Calcium [Mass/Vol] 9.0 mg/dL Normal 8.7-10.4 [facility] ([place]) Comment on above: Performed By: #### C BC, GFR, ANEU, ADIFF, PBNP, CMP #### [address] [address] Chloride [Moles/Vol] 104 mmol/L Normal 98-110 [facility] ([place]) Comment on above: Performed By: #### C BC, GFR, ANEU, ADIFF, PBNP, CMP #### [address] [address] CO2 [Moles/Vol] 21 mmol/L Low 22-32 [facility] ([place]) Comment on above: Performed By: #### C BC, GFR, ANEU, ADIFF, PBNP, CMP #### [address] [address] Creatinine [Mass/Vol] 0.69 mg/dL Normal 0.50-1.20 [facility] ([place]) Comment on above: Performed By: #### C BC, GFR, ANEU, ADIFF, PBNP, CMP #### [address] [address] Electrolyte Balance 17.0 mEq/L High 4.0-15.0 [facility] ([place]) Comment on above: Performed By: #### C BC, GFR, ANEU, ADIFF, PBNP, CMP #### [address] [address] Globulin 2.8 G/dL Normal 1.5-3.8 [facility] ([place]) Comment on above: Performed By: #### C BC, GFR, ANEU, ADIFF, PBNP, CMP #### [address] [address] Glucose [Mass/Vol] 127 mg/dL High 82-115 [facility] ([place]) Comment on above: Performed By: #### C BC, GFR, ANEU, ADIFF, PBNP, CMP #### [address] [address] Potassium [Moles/Vol] 4.0 mmol/L Normal 3.5-5.0 [facility] ([place]) Comment on above: Performed By: #### C BC, GFR, ANEU, ADIFF, PBNP, CMP #### [address] [address] Sodium [Moles/Vol] 142 mmol/L Normal 136-145 [facility] ([place]) Comment on above: Performed By: #### C BC, GFR, ANEU, ADIFF, PBNP, CMP #### [address] [address] Total Protein 6.5 G/dL Normal 5.7-8.2 [facility] ([place]) Comment on above: Result Comment: No te - New Reference Range in effect 20 Performed By: #### C BC, GFR, ANEU, ADIFF, PBNP, CMP #### [address] [address] Urea nitrogen [Mass/Vol] 17.0 mg/dL Normal 8.0-22.0 [facility] ([place]) Comment on above: Performed By: #### C BC, GFR, ANEU, ADIFF, PBNP, CMP #### [address] [address] LABORATORYOrdered By: SYSTEM SYSTEM on 04-22-2023 Albumin BCP dye [Mass/Vol] 3.7 G/dL Invalid Interpretation Code 3.2 - 4.8 G/dL ADM SS Albumin/Globulin [Mass ratio] 1.3 {ratio} Invalid Interpretation Code 0.9 - 1.6 ratio AH ADM SS ALP [Catalytic activity/Vol] 112 U/L [...] Invalid Interpretation Code 1.5 - 3.8 G/dL AH ADM SS Protein [Mass/Vol] 6.5 G/dL Invalid Interpretation Code 5.7 - 8.2 G/dL ADM SS Troponin I.cardiac DL <= 0.01 ng/mL [Mass/Vol] 333.21 ng/L Invalid Interpretation Code 0.00 - 34.00 ng/L AH ADM SS LABORATORYOrdered By: Lisa Marr on 04-22-2023 Natriuretic peptide.B prohormone N-Terminal [Mass/Vol] 6059 pg/mL Invalid Interpretation Code 0 - 900 pg/mL AH Auto Chem SS PBNPon 04-22-2023 Natriuretic peptide B (Bld) [Mass/Vol] 6059 pg/mL High 0-900 [facility] ([place]) Comment on above: Result Comment: NT-p roBNP results of less than 300 pg/mL effectively rules out acute congestive heart failure with 99% negative predictive value. Performed By: #### A PTT, CBC, ANEU, ADIFF #### [address] [address] [facility] Troponin I High Sensitivity 333.21 ng/L High 0.00-34.00 [facility] ([place]) Comment on above: Result Comment: If t he High Sensitive Troponin result is below the 99th percentile value (<45 ng/L) at the first blood draw, at least two additional blood samples should be drawn before results are interpreted as negative for AMI. Performed By: #### A PTT, CBC, ANEU, ADIFF #### [address] [address] HbA1c (Bld)on 01-20-2023 Average glucose Estimated from glycated hemoglobin (Bld) [Mass/Vol] 103 mg/dL Normal [facility] Comment on above: Order Comment: Ruddy posadas Type: BLOOD SPECIMEN Ordering Facility: [facility] Address: [address] [place] [address] Result Comment: eAG: (Estimated average glucose) is a calculated value from HgbA1c and is field sales representative of the average blood glucose level in the last 2-3 month period. Performed By: #### 5 5454-3 #### [facility] CLIA [id number] [address] [place] [address] [place] HbA1c (Bld) [Mass fraction] 5.2 % Normal 4.3-5.6 [facility] Comment on above: Order Comment: Ruddy posadas Type: BLOOD SPECIMEN Ordering Facility: [facility] Address: [address] [place] [address] Result Comment: [place] Diabetes Association guidelines indicate that patients with HgbA1c in the range 5.7-6.4% are at increased risk for development of diabetes, and intervention by lifestyle modification may be beneficial. HgbA1c greater or equal to 6.5% is considered diagnostic of diabetes. Performed By: #### 5 5454-3 #### [facility] CLIA [id number] [address] [place] [id number] [place] Colonoscopyon 12-15-2022 Colonoscopy [facility] Gastrointestinal Endoscopy Patient Name: Ashley Tuttle Procedure [...] previous diet. Procedure Code(s): --- Professional --- 35[address], Colonoscopy, flexible; diagnostic, including collection of specimen(s) by brushing or washing, when performed (separate procedure) [address], 59, Moderate sedation services provided by the same physician or other qualified health career services director performing the diagnostic or therapeutic service that the sedation supports, requiring the presence of an independent trained observer to assist in the monitoring of the patient's level of consciousness and physiological status; initial 15 minutes of intraservice time, patient age 5 years or older [address], Moderate sedation; each additional 15 minutes intraservice time Diagnosis Code(s): --- Professional --- K64.8, Other hemorrhoids Z86.010, Personal history of colonic polyps Z12.11, Encounter for screening for malignant neoplasm of colon CPT copyright 2020 [employer]. All rights r (more content not included)... Normal [facility] HISTORY PHYSICALon 3 HISTORY PHYSICAL HNO ID: [id number] Author: Thelma Fenton MD Service: General Surgery [...] entered by the nurse and reviewed by ms Nursing Notes: Gila Allen 11/17/2022 2:51 PM [...] denies arth (more content not included)... Normal [facility] NURSING PROGon 12-15-2022 NURSING PROG HNO ID: [id number] Author: Geetha Messina RN Service: ? Author Type: Registered Nurse Type: Nursing Progress Note Filed: 12/15/2022 12:21 PM Note Text: Arrived in phase II via cart left lateral position, eyes open to verbal stimuli, skin warm and dry, alert to self and event. Abdomen soft and non distended, denies pain or nausea. Resting comfortably on left side. Normal [facility] CNOVon 11-17-2022 CNOV Office Visit (USMAN ) ASHLEY TUTTLE ([id number]) 1955 F Date Time Provider Department 11/17/22 2:45 PM THELMA FENTON During your visit today, we recorded the following information about you: Temperature Pulse Blood pressure Weight 98.8 degrees 74/minute 152/94 95.3 kg Height 1.613 m Gila Alejandro 11/17/2022 2:51 PM Signed REVIEW OF SYSTEMS: [...] If you do not have a responsible truck driver teamster (family member or friend) with you to [...] and electro (more content not included)... Normal [facility] Hemoglobin A1con 11-28-2021 Glucose [Mass/Vol] 105 mg/dL Normal [facility] Comment on above: Performed By: #### H BA1C #### [facility] Routine Lab [address] [place], [place] [address] HbA1c (Bld) [Mass fraction] 5.3 % Normal 4.3-5.6 [facility] Comment on above: Performed By: #### H BA1C #### [facility] Routine Lab [address] [place], [place] [address] Hemoglobin A1con 06-02-2021 Glucose [Mass/Vol] 105 mg/dL Normal [facility] Comment on above: Performed By: #### H BA1C #### [facility] Routine Lab [address] [place], [place] [id number] HbA1c (Bld) [Mass fraction] 5.3 % Normal 4.3-5.6 [facility] Comment on above: Performed By: #### H BA1C #### [facility] Routine Lab [address] [place], [place] [address] Vital Signs Date Time Vital Sign Value Performing Clinician Facility 05-21-2025 15:15-0400 Body temperature 97 [degF] Dr. Ld Mon MD Work Phone: [facility] 05-21-2025 15:15-0400 Diastolic blood pressure 85 mm[Hg] Dr. Ld Mon MD Work Phone: [facility] 05-21-2025 15:15-0400 Heart rate 100 /min Dr. Ld Mon MD Work Phone: [facility] 05-21-2025 15:15-0400 Respiratory rate 16 /min Dr. Ld Mon MD Work Phone: [facility] 05-21-2025 15:15-0400 SaO2% (BldA) [Mass fraction] 97 % Dr. Ld Mon MD Work Phone: [facility] 05-21-2025 15:15-0400 Systolic blood pressure 155 mm[Hg] Dr. Ld Mon MD Work Phone: [facility] 05-21-2025 12:00-0400 Inhaled oxygen flow rate 1 L/min Dr. Ld Mon MD Work Phone: [facility] 05-21-2025 06:38-0400 Body height 160.[address] Ld Mon MD Work Phone: [facility] 05-21-2025 06:38-0400 Body mass index (BMI) [Ratio] 37.5 kg/m2 Dr. Ld Mon MD Work Phone: [facility] 05-21-2025 06:38-0400 Body weight [address] Ld Mon MD Work Phone: [facility] 04-25-2025 13:00-0400 Body height 162.[address] Ld Mon MD Work Phone: [facility] 04-25-2025 13:00-0400 Body mass index (BMI) [Ratio] 35.9 kg/m2 Dr. Ld Mon MD Work Phone: [phone] [place] [address] 04-25-2025 13:00-0400 Body temperature 97.5 [degF] Dr. Ld Mon MD Work Phone: [phone] [place] [address] 04-25-2025 13:00-0400 Body weight 95.[address] Ld Mon MD Work Phone: [facility] 04-25-2025 13:00-0400 Diastolic blood pressure 82 mm[Hg] Dr. Ld Mon MD Work Phone: [facility] 04-25-2025 13:00-0400 Heart rate 72 /min Dr. Ld Mon MD Work Phone: [facility] 04-25-2025 13:00-0400 Respiratory rate 18 /min Dr. Ld Mon MD Work Phone: [facility] 04-25-2025 13:00-0400 SaO2% (BldA) [Mass fraction] 98 % Dr. Ld Mon MD Work Phone: [facility] 04-25-2025 13:00-0400 Systolic blood pressure 168 mm[Hg] Dr. Ld Mon MD Work Phone: [facility] 04-27-2023 12:54-0400 Body temperature 98.06 [degF] DR ESTEBAN ENGLAND MD [address] [place] [address] 04-27-2023 12:54-0400 Diastolic Blood Pressure Non-Invasive [address] ESTEBAN ENGLAND MD [address] [place] [address] 04-27-2023 12:54-0400 Heart rate 90 /min DR ESTEBAN ENGLAND MD [address] [place] [address] 04-27-2023 12:54-0400 Mean blood pressure 80 mm[Hg] DR ESTEBAN ENGLAND MD [address] [place] [address] 04-27-2023 12:54-0400 Reason For Taking VItal Signs DR ESTEBAN ENGLAND MD [address] [place] [address] 04-27-2023 12:54-0400 Respiratory rate 24 /min DR ESTEBAN ENGLAND MD [address] [place] [address] 04-27-2023 12:54-0400 Systolic Blood Pressure Non-Invasive [address] ESTEBAN ENGLAND MD [address] [place] [address] 04-27-2023 08:16-0400 Heart rate 94 /min DR ESTEBAN ENGLAND MD [address] [place] [address] 04-27-2023 08:10-0400 Respiratory rate 23 /min DR ESTEBAN ENGLAND MD [address] [place] [address] 04-27-2023 08:02-0400 Body temperature 97.7 [degF] DR ESTEBAN ENGLAND MD [address] [place] [address] 04-27-2023 08:02-0400 Diastolic Blood Pressure Non-Invasive [address] ESTEBAN ENGLAND MD [address] [place] [address] 04-27-2023 08:02-0400 Heart rate 95 /min DR ESTEBAN ENGLAND MD [address] [place] [address] 04-27-2023 08:02-0400 Mean blood pressure 102 mm[Hg] DR ESTEBAN ENGLAND MD [address] [place] [address] 04-27-2023 08:02-0400 Reason For Taking VItal Signs DR ESTEBAN ENGLAND MD [address] [place] [address] 04-27-2023 08:02-0400 Respiratory rate 18 /min DR ESTEBAN ENGLAND MD [address] [place] [address] 04-27-2023 08:02-0400 Systolic Blood Pressure Non-Invasive [address] ESTEBAN ENGLAND MD [address] [place] [address] 04-27-2023 04:20-0400 Body temperature 97.7 [degF] DR ESTEBAN ENGLAND MD [address] [place] [address] 04-27-2023 04:20-0400 Diastolic Blood Pressure Non-Invasive [address] ESTEBAN ENGLAND MD [address] [place] [address] 04-27-2023 04:20-0400 Heart rate 92 /min DR ESTEBAN ENGLAND MD [address] [place] [address] 04-27-2023 04:20-0400 Mean blood pressure 78 mm[Hg] DR ESTEBAN ENGLAND MD [address] [place] [address] 04-27-2023 04:20-0400 Reason For Taking VItal Signs DR ESTEBAN ENGLAND MD [address] [place] [address] 04-27-2023 04:20-0400 Systolic Blood Pressure Non-Invasive [address] ESTEBAN ENGLAND MD [address] [place] [address] 04-27-2023 01:35-0400 Heart rate 93 /min DR ESTEBAN ENGLAND MD [address] [place] [address] 04-26-2023 15:50-0400 Heart rate 93 /min DR ESTEBAN ENLGAND MD [address] [place] [address] 04-24-2023 11:50-0400 Body height [address] ESTEBAN ENGLAND MD [address] [place] [address] 04-24-2023 11:50-0400 Body weight [address] ESTEBAN ENGLAND MD [address] [place] [address] 04-24-2023 11:50-0400 Body weight 37.11 kg/m2 DR ESTEBAN ENGLAND MD [address] 04-24-2023 03:33-0400 Blood Pressure Cuff Size DR ESTEBAN ENGLAND MD [address] [place] [address] 04-24-2023 03:33-[address] ESTEBAN ENGLAND MD [address] [place] [address] 04-24-2023 03:33-[address] ESTEBAN ENGLAND MD [address] [place] [address] 04-23-2023 18:28-0400 Blood Pressure Cuff Size DR ESTEBAN ENGLAND MD [address] [place] [address] 04-23-2023 18:28-[address] ESTEBAN ENGLAND MD [address] [place] [address] 04-23-2023 18:28-[address] ESTEBAN ENGLAND MD [address] [place] [address] 04-23-2023 15:48-0400 Heart rate 100 /min DR ESTEBAN ENGLAND MD [address] [place] [address] 04-23-2023 14:46-0400 Blood Pressure Cuff Size DR ESTEBAN ENGLAND MD [address] [place] [address] 04-23-2023 14:46-[address] ESTEBAN ENGLAND MD [address] [place] [address] 04-23-2023 14:46-[address] ESTEBAN ENGLAND MD [address] [place] [address] 04-23-2023 07:16-0400 Heart rate 105 /min DR ESTEBAN ENGLAND MD [address] [place] [address] 04-23-2023 03:06-0400 Heart rate 101 /min DR ESTEBAN ENGLAND MD [address] [place] [address] 04-22-2023 17:46-0400 Body height [address] ESTEBAN ENGLAND MD [facility] 04-22-2023 17:46-0400 Body weight [address] ESTEBAN ENGLAND MD [facility] 04-22-2023 17:46-0400 Body weight 37.11 kg/m2 DR ESTEBAN ENGLAND MD [facility] 11-17-2022 14:42-0500 Body height 161.3 cm Thelma Fenton MD Work Phone: [facility] 11-17-2022 14:42-0500 Body temperature 98.8 [degF] Thelma Fenton MD Work Phone: [facility] 11-17-2022 14:42-0500 Body weight 95.25 kg Thelma Fenton MD Work Phone: [facility] 11-17-2022 14:42-0500 Diastolic blood pressure 94 mm[Hg] Thelma Fenton MD Work Phone: [facility] 11-17-2022 14:42-0500 Heart rate 74 /min Thelma Fenton MD Work Phone: [facility] 11-17-2022 14:42-0500 SaO2% (BldA) [Mass fraction] 99 % Thelma Fenton MD Work Phone: [facility] 11-17-2022 14:42-0500 Systolic blood pressure 152 mm[Hg] Thelma Fenton MD Work Phone: [facility] Encounters Encounter Date Encounter Type Care Provider Facility Start: 08-29-2025 End: 08-29-2025 ambulatory Bernard Hargrove Facility:[facility] Start: 08-26-2025 End: 08-26-2025 ambulatory Bud Suazo Facility:[facility] Start: 07-29-2025 End: 07-29-[address] Ld Mon MD Work Phone: [facility] Start: 07-29-2025 End: 07-29-[address] Bud Suazo MD -[facility] Start: 07-29-2025 End: 07-29-2025 ambulatory Ld Mon Facility:[facility] Start: 06-25-2025 End: 06-25-[address] Ld Mon MD Work Phone: -[facility] Start: 06-25-2025 End: 06-25-[address] Bud Suazo MD -[facility] Work Phone: Start: 06-25-2025 ambulatory LD Mancilla [facility] Start: 06-25-2025 End: 06-25-2025 ambulatory Ld Mon Facility:[facility] Start: 05-29-2025 End: 05-29-[address] Bud Suazo MD -[facility] Work Phone: Start: 05-29-2025 End: 05-29-[address] Ld Mon MD Work Phone: -[facility] Start: 05-21-2025 Non-patient / Non-visit Dr. Bud Suazo MD -[facility] Start: 05-21-2025 End: 05-21-2025 Admission to same day surgery center Dr. Bud Suazo MD [facility] Start: 05-21-2025 End: 05-21-[address] Ld Mon MD Work Phone: [facility] Start: 04-25-2025 End: 04-25-[address] Bud Suazo MD -[facility] Work Phone: Start: 04-25-2025 End: 04-25-[address] Ld Mon MD Work Phone: [facility] Work Phone: Start: 04-22-2025 End: 04-22-2025 ambulatory LD [facility] Start: 03-29-2025 End: 03-29-2025 ambulatory YASSER MD [facility] Start: 03-27-2025 End: 03-27-2025 ambulatory ALEXANDER DAWN [facility] Start: 02-20-2025 End: 02-20-2025 [facility] Start: 02-07-2025 End: 02-07-2025 Emergency department patient visit LD DAWN [facility] Start: 10-08-2024 End: 10-08-2024 ambulatory LD DAWN [facility] Start: 06-22-2023 End: 06-22-2023 Patient encounter procedure NATHANIEL NOVAK MD [facility] Start: 05-20-2023 [facility] Start: 04-22-2023 End: 04-27-2023 Evaluation and management of inpatient CHELLE GAN MD Facility:A Start: 04-22-2023 End: 04-27-2023 Evaluation and management of inpatient DR ESTEBAN ENGLAND MD [facility] Start: 12-15-2022 End: 12-15-2022 ambulatory THELMA FENTON Facility:[facility] Start: 11-17-2022 End: 11-17-2022 ambulatory ROBERT FONG Facility:[facility] Start: 11-17-2022 End: 11-17-2022 Patient encounter procedure Thelma Fenton MD Work Phone: General Surgery Comment on above: History of colonic p olyps; Family history of colon cancer Procedures Date Procedure Procedure Detail Performing Clinician Start: 05-21-[address] Vanessa Mon MD Work Phone: Start: 10-08-2024 Urinalysis ALEXANDER HESTER Comment on above: Result Comment: URIN ALYSIS Performed By: #### 2 [id number] #### [facility],[address] [address] Start: 10-23-2019 Colonoscopy Thelma Fenton MD Work Phone: History of thyroidectomy S/P thyroidectom y Dr. Ld Mon MD Work Phone: Plan of Treatment Date Care Activity Detail Author Start: 07-14-2025 DIABETES SCREEN DIABETES SCREEN [facility] Start: 05-21-2025 Anes esoph thyrd larynx trach & lymph neck 1yr ANESTH NECK ORGAN 1YR/> [facility] Start: 05-21-2025 Total thyroid lobectomy uni w/wo isthmusectomy PARTIAL REMOVAL OF THYROID [facility] Start: 05-21-2025 Patient discharge [facility] Start: 05-09-2025 Electrocardiographic procedure [facility] Start: 11-07-2022 ADVANCE DIRECTIVE DISCUSSION ADVANCE DIRECTIVE DISCUSSION [facility] Start: 11-07-2022 DEPRESSION ASSESSMENT DEPRESSION ASSESSMENT [facility] Start: 10-23-2022 Colonoscopy COLONOSCOPY [facility] Start: 10-23-2022 COLORECTAL CANCER SCREENING COLORECTAL CANCER SCREENING [facility] Start: 07-08-2022 Influenza vaccination INFLUENZA (#1) [facility] Start: 2019 BONE DENSITY BONE DENSITY [facility] Start: 2019 PNEUMOCOCCAL: 65+ (1 - PCV) PNEUMOCOCCAL: 65+ (1 - PCV) [facility] Start: 2004 SHINGRIX VACCINE (1 of 2) SHINGRIX VACCINE (1 of 2) [facility] Start: 1999 COLOGUARD (FIT-DNA) COLOGUARD (FIT-DNA) [facility] Start: [address] COLONOGRAPHY [facility] Start: 1999 FECAL OCCULT BLOOD FECAL OCCULT BLOOD [facility] Start: 1999 LIPID SCREEN LIPID SCREEN [facility] Start: 1999 SIGMOIDOSCOPY SIGMOIDOSCOPY [facility] Start: 1994 Mammography MAMMOGRAM [facility] Start: 1973 Urine microalbumin profile DTAP,TDAP,TD (1 - Tdap) [facility] Start: 1972 HEPATITIS C SCREENING HEPATITIS C SCREENING [facility] Start: 03-28-1955 COVID-19 VACCINE (#1) COVID-19 VACCINE (#1) [facility] Electrocardiographic procedure [facility] End: 11-17-2023 Screening colonoscopy COLONOSCOPY SCREENING Endoscopy Routine History of colonic polyps 1 Occurrences starting 11/17/2022 until 11/17/2023 [facility] Work Phone: Comment on above: 1 Occurrences starting 11/17/2022 until 11/17/2023 T4 free measurement [facility] Thyroid stimulating hormone measurement [facility] Triiodothyronine, fr ee measurement [facility] US Thyroid gland [facility] Payers Date Payer Category Payer Self-pay 2021 Unknown MMO MMO MEDICARE SUPPLEMENT [id number] 2021-Present [phone] [address] [place] [address] Indemnity [id number] 2021 Unknown [id number] 2019 Medicare MEDICARE MEDICAR E A AND B [id number] 2019-Present [phone] [address] [address] [place] [address] Medicare [id number] 2019 Medicare [id number] 1955 Unknown [id number] [id number] 1954 Unknown [id number] [id number] 1954 Unknown [id number] 2.16.840.1.575867.3.579.2.651 1954 Unknown [id number] 2.16.840.1.941874.3.579.2.651 1954 Unknown [id number] 2.16.840.1.855798.3.579.2.651 1954 Unknown [id number] 2.16.840.1.129372.3.579.2.651 1954 Unknown [id number] 2.16.840.1.166544.3.579.2.651 1954 Unknown [id number] 2.16.840.1.033729.3.579.2.651 1954 Unknown [id number] 2.16.840.1.705729.3.579.2.651 Unknown [id number] Unknown [id number] 2.16.840.1.756523.3.579.2.462 Unknown [id number] 2.16.840.1.247678.3.579.2.462 Unknown [id number] 2.16.840.1.919715.3.579.2.462 Unknown [id number] 2.16.840.1.044801.3.579.2.462 Unknown [id number] 2.16.840.1.010365.3.579.2.462 Unknown [id number] 2.16.840.1.672147.3.579.2.462 Unknown [id number] 2.16.840.1.139134.3.579.2.462 Unknown [id number] 2.16.840.1.083012.3.579.2.462 Unknown [id number] [id number] Social History Date Type Detail Facility Start: 02-02-2013 End: 05-08-2025 Tobacco smoking status TNIS Never smoked tobacco [facility] Start: 02-02-2013 Tobacco use and exposure Smokeless tobacco non-user [facility] Start: 11-17-2022 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 Medical Equipment Procedure Code Equipment Code Equipment [...] Facility 04-27-2023 Functional Status Room check performed [facility] 04-27-2023 Functional Status 1 [facility] 04-27-2023 Functional Status Done [facility] 04-27-2023 Functional Status [facility] 04-26-2023 Functional Status [facility] 04-26-2023 Functional Status [facility] 04-25-2023 Functional Status Single level home [facility] 04-25-2023 Functional Status Spouse is semi-retired. [facility] 04-25-2023 Functional Status Morning Snack Percent 7 5 [facility] 04-24-2023 Functional Status Maintained [facility] 04-24-2023 Functional Status [facility] 04-24-2023 Functional Status [facility] 04-23-2023 Functional Status [facility] 04-22-2023 Functional Status [facility] Mental Status Date Assessment Result Facility 05-21-2025 Cognitive function Voice/Name [facility] Work Phone: 04-27-2023 Mental Status Oriented x 4 [facility] 04-27-2023 Mental Status [facility] 04-27-2023 Mental Status [facility] Clinical Notes 11-17-2022 to 05-21-2025 Note Date & Type Note Facility 05-21-2025 Consult note Note Date/Time May 21, 2025 11:20am [facility] Medical Records Department [address] [place] [address] Anesthesia Postop Eval I 05/21/25 1118 MR#: [id number] Acct: [id number] Name: ASHLEY TUTTLE Rep #:[id number] : 1955 69 From: Miri PATEL PCP: Dr. Ld Mon MD Status:REG S DC Y Race: C Location: [place] [address] Anesthesia: Postop Eval I Current Vital Signs [...] completed: Yes 05/21/25 1120 <Electronically signed by iMri [place] CRNA> Date _ Miri [place] CRNA Cosigner Signature: Date CC: ~ Signed [facility] Work Phone: 1(394) 420-111907-15-2025 Consult note [facility] Medical Records Department [address] [place] [address] Anesthesia Postop Eval I 05/21/25 1118 MR#: [id number] Acct: [id number] Name: ASHLEY TUTTLE Rep #:[id number] : 1955 69 From: Miri PATEL PCP: Dr. Ld Mon MD Status:REG S DC Y Race: C Location: [place] [address] Anesthesia: Postop Eval I Current Vital Signs [...] Postop Eval 1 completed: Yes 05/21/25 1120 WARP HANGER> Date _ Miri [place] WARP HANGER Cosigner Signature: Date CC: ~ Signed [facility]07-15-2025 Consult note Author Eleno [facility] Note Date/Time May 21, 2025 7:06 am [facility] Medical Records Department [address] [place] [address] Pre-Anesthesia Evaluation 05/21/25 0701 MR#: [id number] Acct: [id number] Name: ASHLEY TUTTLE Rep #:[id number] : 1955 69 From: Eleno Cerrato MD PCP: Dr. dL Mon MD Status:REG S DC Y Race: C Location: [place] [address] ASA Classification* ASA Classification ASA Classification: 2 [...] NERVE MONITORING Anesthesia History Anesthesia History - telegrapher agent: Anesthesia History - telegrapher agent Hx Hospitalization No 05/08/25 08:00 Any Problems [...] sips of water?: Yes PONV PONV - telegrapher agent: PONV - telegrapher agent Female Yes 05/08/25 08:00 HX of Motion Sickness No 05/08/25 08:00 HX of N/V After Surgery No 05/08/25 08:00 Non-Smoker Yes 05/08/25 08:00 Duration of Surgery greater Yes 05/08/25 08:00 than 60 minutes Number of Risk Factors 3 05/08/25 08:00 PONV Score Moderate Risk 07/02/25 08:00 Height & Weight Height & Weight: Anesthesia: Height & Weight Height 5 ft 3 in 05/21/25 06:38 Weight: 96 kg 05/21/25 06:38 Body Mass Index (BMI) 37.5 05/21/25 06:38 Respiratory Assessment Respiratory Assessment - telegrapher agent: Respiratory Tract Infection Hx - telegrapher agent Hx Respiratory Tract Infection No 05/08/25 08:00 STOP Sleep Apnea STOP Sleep Apnea - telegrapher agent: STOP Sleep Apnea - telegrapher agent Hx Hypertension Yes: CONTROLLED WITH MEDS 05/08/25 [...] Tobacco Use History Tobacco Use History - telegrapher agent: Tobacco Use History - telegrapher agent Tobacco Use Smoking Status Never smoker 05/08/25 08:00 Hx Tobacco Use No 05/08/25 08:00 Years Smoking Packs Smoked per Day Smoking Cessation Date was within the last 15 years Hx Smoking Cessation Date Hx Smoking Cessation Counseling Hematologic Medial History Hematologic Hx - telegrapher agent: Hematologic Medical Hx - arboriculturist Hx of Blood Transfusion No 05/08/25 08:00 Hx of Transfusion in last 3 No 05/08/25 08:00 Months Date of Last Transfusion (if within last 3 months) Ever experience any problems No 05/08/25 08:00 with transfusion(s)? Specify any problems Hx of Preganancy in last 3 No 05/08/25 08:00 Months Nurse Filling Out Transfusion [id number] 05/08/25 08:00 & Questions: Date: 05/08/25 05/08/25 08:00 Time: 08:03 05/08/25 08:00 Patient unable to answer at this time (ie. confused, unrespo /Reproduction History /Reproductive History - telegrapher agent: /Reproductive Hx- telegrapher agent Hx Now Gestational Age (in weeks): EDC: [...] MD Cosigner Signature: Date CC: ~ Signed [facility] Work Phone: 1(763) 319-409707-15-2025 History and physical note Author Bud Suazo [facility] Note Date/Time May 21, 2025 6:[address] [facility] Medical Records Department [address] [place] [address] History & Physical Exam 05/21/25 0653 MR#: [id number] Acct: [id number] Name: ASHLEY TUTTLE Rep #:[id number] : 1955 69 From: Bud Luke PCP: Dr. Ld Mon MD Status:REG S DC Location: [place] [address] History and Physical Date of Admission: 05/21/25 Date of Service: 04/25/25 MR#: [id number] Acct: [id number] Name: ASHLEY TUTTLE Rep #: [id number] : 1955 Provider: Dr. Bud Suazo MD Age/Sex: 69/F Location: [facility] Status: Signed Intake Vital Signs 04/25/2513:00 Height [...] undergone testing with FNA biopsy resulting Afirma suspicious designation. Patient appears asymptomatic from both an [...] isthmusectomy using intraoperative neuromonitoring as scheduled. 05/21/25 9481 <Electronically signed by Bud Suazo MD> Cosigner Signature (if applicable): CC: Dr. Bud Suazo MD; Dr. Ld Mon MD~ Signed [facility] Work Phone: 1(876) 371-905507-15-2025 Consult note [facility] Medical Records Department [address] [place] [address] Pre-Anesthesia Evaluation 05/21/25 07 MR#: [id number] Acct: [id number] Name: ASHLEY TUTTLE Rep #:[id number] : 1955 69 From: Eleno Cerrato MD PCP: Dr. Ld Mon MD Status:REG S DC Y Race: C Location: [place] [address] ASA Classification* ASA Classification ASA Classification: 2 [...] NERVE MONITORING Anesthesia History Anesthesia History - telegrapher agent: Anesthesia History - telegrapher agent Hx Hospitalization No 05/08/25 08:00 Any Problems [...] sips of water?: Yes PONV PONV - telegrapher agent: PONV - telegrapher agent Female Yes 05/08/25 08:00 HX of Motion [...] 05/21/25 06:38 Respiratory Assessment Respiratory Assessment - telegrapher agent: Respiratory Tract Infection Hx - telegrapher agent Hx Respiratory Tract Infection No 05/08/25 08:00 STOP Sleep Apnea STOP Sleep Apnea - telegrapher agent: STOP Sleep Apnea - telegrapher agent Hx Hypertension Yes: CONTROLLED WITH MEDS 05/08/25 [...] Tobacco Use History Tobacco Use History - telegrapher agent: Tobacco Use History - telegrapher agent Tobacco Use Smoking Status Never smoker 05/08/25 08:00 Hx Tobacco Use No 05/08/25 08:00 Years Smoking Packs Smoked per Day Smoking Cessation Date was within the last 15 years Hx Smoking Cessation Date Hx Smoking Cessation Counseling Hematologic Medial History Hematologic Hx - telegrapher agent: Hematologic Medical Hx - arboriculturist Hx of Blood Transfusion No 05/08/25 08:00 [...] confused, unrespo /Reproduction History /Reproductive History - telegrapher agent: /Reproductive Hx- telegrapher agent Hx Now Gestational Age (in weeks): EDC: [...] MD Cosigner Signature: Date CC: ~ Signed [facility]07-15-2025 History and physical note [facility] Medical Records Department [address] [place] [address] History & Physical Exam 05/21/25 0653 MR#: [id number] Acct: [id number] Name: ASHLEY TUTTLE Rep #:[id number] : 1955 69 From: Bud Luke PCP: Dr. Ld Mon MD Status:REG S DC Location: [place] [address]1 History and Physical Date of Admission: 05/21/25 Date of Service: 04/25/25 MR#: [id number] Acct: [id number] Name: ASHLEY TUTTLE Rep #: [id number] : 1955 Provider: Dr. Bud Suazo MD Age/Sex: 69/F Location: [facility] Status: Signed Intake Vital Signs 04/25/2513:00 Height [...] undergone testing with FNA biopsy resulting Afirma suspicious designation. Patient appears asymptomatic from both an [...] with isthmusectomy using intraoperative neuromonitoring as scheduled. 05/21/2554 Cosigner Signature (if applicable): CC: Dr. Bud Suazo MD; Dr. Ld Mon MD~ Signed [facility]07-15-2025 [facility] Medical Records Department [address] [place] [address] History Physical Exam 05/21/25 0653 MR#: [id number] Acct: [id number] Name: ASHLEY TUTTLE Rep #: [id number] : 1955 69 From: Bud Suazo MD PCP: Dr. Ld Mon MD Status:[facility] Location: [place] [address] History and Physical Date of Admission: 05/21/25 Date of Service: 04/25/25 MR#: [id number] Acct: [id number] Name: ASHLEY TUTTLE Rep #: [id number] : 1955 Provider: Dr. Bud Suazo MD Age/Sex: 69/F Location: [facility] Status: Signed Intake Vital Signs 04/25/2513:00 Height [...] Musculoskeletal: No back problems, (more content not included)...[facility]07-03-2025 Hospital Discharge instructionsAmbulatory Orders* 12 Lead EKG [[facility]] Time Frame: 05/09/25, Location: None Selected [facility] Work Phone: 1(819) 529-362306-19-2025 Evaluation note* Diagnosis Onset Date Resolution Status Admit Date Thyroid nodule acute April 25, 2025 12:12pm [facility] Work Phone: 1(342) 685-187506-19-2025 Evaluation note* Diagnosis Onset Date Resolution Status Admit Date Thyroid nodule acute April 25, 2025 12:12pm Follicular carcinoma of thyroid acut e May 29, 2025 9:49am History of lobectomy of thyroid acut e May 29, 2025 9:49am [facility] Work Phone: 1(612) 652-140006-19-2025 Evaluation note* Diagnosis Onset Date Resolution Status Admit Date Thyroid nodule acute April 25, 2025 12:12pm Follicular carcinoma of thyroid acut e May 29, 2025 9:49am History of lobectomy of thyroid acut e May 29, 2025 9:49am Follicular carcinoma of thyroid acut e June 25, 2025 2:27pm History of lobectomy of thyroid acut e June 25, 2025 2:27pm [facility] Work Phone: 1(505) 867-643604-03-2025 NoteDischarge Instructions Discharge Summary [address] [address] [id number] 02/07/2025 Patient: ASHLEY TUTTLE Sex: Female : 1955 Age: 69y Thank you for visiting [facility]. You have been evaluated today by Zev [...] days, dispense 5 tablet. Refills 0. Pharmacy: [facility]/pharmacy #[id number] - [address], [place] [phone]. albuterol sulfate HFA 90 mcg/actuation aerosol inhaler: Inhale 2 puff using inhaler every six to eight hours as needed for 10 days, dispense 18 gram. Refills 0. Pharmacy: [facility]/pharmacy #[id number] - [address], [place] [phone]. 1 of 15 Discharge Instructions Zithromax Z-Codey tablet (azithromycin) 250: Take 2 tablet by mouth once a day for 5 days, dispense 6tablet. Refills 0. Pharmacy: [facility]/pharmacy #[id number] - [address], [place] [phone]. Follow-up with: Ld Mon MD, [facility], Internal Medicine, Phone: [phone],1261 [facility] [address], [place] [address]. Follow up in four. (return if problems or concerns any shortness of breath.). You have been given the following additional information: Pneumonia (Adult) PREDNISONE - ORAL ALBUTEROL (SALBUTAMOL) HFA INHALER - ORAL INHALATION Patient Signature Facility Picker Box Operator Date/Time General Instructions with ExitWriter [address] [place] [phone] 02/07/2025 Patient: ASHLEY TUTTLE Sex: Female : 1955 Age: 69y Thank you for visiting [facility]. You have been evaluated today by Zev [...] days, dispense 5 tablet. Refills 0. Pharmacy: [facility]/pharmacy #[id number] - [address], [place] [phone]. albuterol sulfate HFA 90 mcg/actuation aerosol inhaler: Inhale 2 puff using inhaler every six to eight hours as needed for 10 days, dispense 18 gram. Refills 0. Pharmacy: [facility]/pharmacy #[id number] - [address], [place] [phone]. Zithromax Z-Codey tablet (azithromycin) 250: Take 2 tablet by mouth once a day for 5 days, dispense 6tablet. Refills 0. Pharmacy: [facility]/pharmacy #[id number] - [address], [place] [phone]. Follow-up with: Ld Mon MD, [facility], Internal Medicine, Phone: [phone],[address] [place] [address]. Follow up in four. (return if problems [...] healthcare provider about t (more content not included)...[facility]08-16-2023 Note* Exam Date Time Procedure Performing Provider Status 06/22/23 2:52 PM Echocardiogram, Adult - CV Auth (Verified) [facility] 06-21-2023 Discharge summary Date of Service 04/27/23 [...] of breath. The patient was recently in and traveled by car for too long [...] When Within 5 to 7 days Where: [address] [place] [address] [address] [facility] [phone] Follow Up Appointments No qualifying data available. [...] DAISHA WOODWARD MD on 04/27/2023 07:[address]21-2023 Hospital Discharge instructions Patient Education 04/27/2023 14:55:58 [...] Follow these instructions at home: Medicines Take vahy-duu-ghshsrg and prescription medicines only as told by [...] right away. Call your local emergency services (161 in the [place] Do not drive yourself [...] or DVT, call your local emergency services (451 in the [place] This information is not intended to replace advice given to you by your health care provider. Make sure you discuss any questions you have with your health care provider. Document Released: 10/21/2001 Document Revised: 08/01/2019 Document Reviewed: 08/01/2019 [employer] Patient Education 2020 [employer] Follow Up Care 04/22/2023 17:37:00 With:LD MON MD, Infectious Disease, Infectious Disease Group Address: [address] [place] [address] [address] [facility]/[place] [phone] When:5 to 7 days [facility] 06-21-2023 Note Discharge Instructions Thank you for allowing [facility] to assist you with your healthcare needs. The following is importantdischarge information regarding your hospital visit. Your Care Team LD MON MD What to do next Follow Up Appointments Follow Up with LD MON MD, Infectious Disease, Infectious Disease Group When Within 5 to 7 days Where: [address] [facility]/[place] [phone] The Following Activity and Diet Have Been [...] medicines at the same time (including some cyvs-tlr-onhfeow medicines). Tell your doctor about all medicines [...] may report side effects to FDA at 4-306-WHP-5387. What other drugs will affect apixaban? Sometimes it is not safe to use certain medications at the same time. Some drugs can affect your blood levels of other drugs you take, which may increase side effects or make the medications less effective. Many other drugs (including some vxgc-qax-cdtxsxv medicines) can increase your risk of bleeding or blood clots. Tell your doctor about all medicines you have recently used, especially: any other medicines to treat or prevent blood clots; a blood thinner such as heparin or warfarin (Coumadin, Jantoven); an antidepressant; or aspirin or other NSAID (nonsteroidal anti-inflammatory drug) used correction. This list is not complete and many other drugs may affect apixaban. This includes prescription and qzkq-oqc-rbxxlxm medicines, vitamins, and herbal products. Not all [...] to ensure that the information provided by Signature. ('[employer]') is accurate, up-to-date, and complete, but no guarantee is made to that effect. Drug information contained herein may be time sensitive. [employer] information has been compiled for use by healthcare practitioners and consumers in the [place] and therefore [employer] does not warrant that uses outside of the [place] are appropriate, unless specifically indicated otherwise. [employer] drug information does not endorse drugs, diagnose patients or recommend therapy. [employer] drug information isan informational resource designed to [...] effective or appropriate for any given patient. [employer] does not assume any responsibility for any aspect of healthcare administered with the aid of information [employer] provides. The information contained herein is not intended to cover all possible uses, directions, precautions, warnings, drug interactions, allergic reactions, or adverse effects. If you have questions about the drugs you are taking, check with your doctor, nurse or pharmacist. Copyright 3160-2783 Signature. Version: 6.. Revision Date: 06/30/2021. Education Materials Pulmonary Embolism [...] Follow these instructions at home: Medicines Take qiww-qzr-emvvudy and prescription medicines only as told by [...] 10/21/2001 Document Revised: 08/01/2019 Document Reviewed: 08/01/2019 [employer] Patient Education 2020 [employer] Additional Information VACCINATE! IT SAVES LIVES! Members of the community who have not yet received the COVID-19 vaccine and would like to receive it can visit one of [facility] vaccine clinics. There are many vaccine clinic locations within the [facility]. For locations and available times, please visit https://gettheshot.coronavirus.[place].gov/. It is important to note that some COVID mobile vaccine clinics are held outdoors and may be canceled in rainy or stormy conditions. To learn more about pediatric vaccinations (ages 5-11), we invite you to visit the [facility] webpage. https://www.[facility].org/pages/1914-Ynbuk-Kdrgwvmharr-Rzxcwoevks-Qmlrw-Mlr stions.htmlTo learn more about the COVID-19 vaccine, we invite you to visit the CDC website for a list of frequently asked questions.https://www.cdc.gov/coronavirus/2019-ncov/vaccines/faq.html [facility] Patient Portal Access Instructions: Stay connected with your healthcare team and access your personal medical information anytime with the [facility] Patient Portal. Please follow the directions below to create your [facility] account: 1.Access the email account you provided upon registration to the hospital/physician office.2.Look for an invitation email from [facility].3.Open the email and access the invitation link: AcceptInvitation to [facility].4.Fill in the required antonio to create your account. To access your account, visit [email or web address]. Click the blue button labeled Access Patient [...] who you will allowto register on the [facility] Patient Portal for access to your information. You can also access the [facility] Patient Portal on the [facility] karime. Simply click on Patient Portal and then log into your account. If you would like to receive a full copy of your medical records, please contact the [facility] Medical Records Department by calling [phone], Tuesday through Tuesday between 8 a.m. and [...] Call your local pharmacy or go to http://bit.ly/8F6Qk0u to find one close to you.3.Make use of household items: Use cat litter or old coffee grounds to dispose medications if other options arenot available. Mix your drugs with these household products, seal them in an airtight container andthrow it into the garbage. Call [facility]: [phone] to be sure your drugs can be [...] aware that I should contact my doctor. Patient/Picker Box Operator Signature: Date/Time: Relationship to Patient: Witness Name/Signature: [facility] Note Date of Service 04/26/23 Chief Complaint [...] karime, Topical, qDay fluticasone nasal 0.05 mg/inh Emmons 50 mcg 1 spray(s), Nostril, each, qDay fluticasone nasal 0.05 mg/inh Emmons 50 mcg 1 spray(s), Nostril, each, BID [...] DAISHA WOODWARD MD on 04/27/2023 01:34 AM [facility]fpydviz72-40-7124 Pulmonary Progress note Date of Service 04/26/2023 Chief Complaint Nasal congestion Subjective Ms. Tuttle is a 67-year-old female past medical history hypertension who recently traveled by car to [place] and returned last Tuesday then developed lower extremity edema followed by shortness of breath with chest discomfort, which she describes as heaviness. Symptoms got progressively worse with worsening edema. There is a family history of DVT in her sister. [facility] was found to be [...] karime, Topical, qDay fluticasone nasal 0.05 mg/inh Emmons 50 mcg 1 spray(s), Nostril, each, qDay [...] directed thrombolysis. 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 2. Sister history of DVT. Plan: 1. Patient has improved significantly, will be able this morning to wean her oxygen to room air, Y1ybmwmzzjmf 92-94%, suspect she might need oxygen at [...] NATHANIEL NOVAK MD on 04/26/2023 09:07 AM [facility]izwqsv64-83-2732 Note Date of Service 04/25/2023 Subjective Ms. Tuttle is a 67-year-old female past medical history hypertension who recently traveled by car to [place] and returned last Tuesday then developed lower [...] karime, Topical, qDay fluticasone nasal 0.05 mg/inh Emmons 50 mcg 1 spray(s), Nostril, each, qDay [...] April 24 2. Recent car travel from [place] back to [place] 3. History of DVT in sister, likely [...] HENRY ONEAL MD on 04/25/2023 11:09 AM [facility]sdgfhnw39-07-1720 Note ORIGINAL EXAMINATION: ONE XRAY VIEW OF [...] 04/25/2023 7:41:49 AM Ordering Provider: BUD PHAM [facility]Zlmrylnl11-19-2960 Vascular surgery Progress note Date of Service [...] karime, Topical, qDay fluticasone nasal 0.05 mg/inh Emmons 50 mcg 1 spray(s), Nostril, each, qDay [...] PRO ALDANA MD on 04/25/2023 07:02 AM [facility]Rwwdcnat85-90-2597 Note ORIGINAL EXAMINATION: ONE XRAY VIEW OF [...] Date: 04/25/2023 7:41:49 AM [facility]ing Provider[facility] Note Date of Service 04/24/23 Chief Complaint [...] karime, Topical, qDay fluticasone nasal 0.05 mg/inh Emmons 50 mcg 1 spray(s), Nostril, each, qDay [...] DAISHA WOODWARD MD on 04/24/2023 11:36 PM [facility]Numdsefe14-05-9445 Note ORIGINAL EXAMINATION: ONE XRAY VIEW OF THE CHEST04/24/2023 6:20 pm CHEST ONE VIEW AP/PA COMPARISON: 04/24/2023 HISTORY: ORDERING SYSTEM PROVIDED HISTORY: Reason for Exam: pain/[id number]^ FINDINGS: Lines/Tubes: None. Interval removal of a [...] 04/24/2023 7:18:41 PM Ordering Provider: LEONA MCNAIR [facility]zfnskfc04-12-4717 Note ORIGINAL EXAMINATION: ONE XRAY VIEW OF THE CHEST04/24/2023 6:20 pm CHEST ONE VIEW AP/PA COMPARISON: 04/24/2023 HISTORY: ORDERING SYSTEM PROVIDED HISTORY: Reason for Exam: pain/[id number]^ FINDINGS: Lines/Tubes: None. Interval removal of a [...] Date: 04/24/2023 7:18:41 PM Ordering Provider: LEONA MCNAIRReg[facility]edoVltfggnr11-32-4668 Note ORIGINAL EXAMINATION: ONE XRAY VIEW OF [...] 1:23:03 PM Ordering Provider: FELIPE MuñizK[facility] CenterNxpmoekx97-62-6992 Note ORIGINAL EXAMINATION: ONE XRAY VIEW OF [...] Date: 04/24/2023 1:23:03 PM Ordering Provider: FELIPE HAWTHORNERegency Hospital ToledoZespagmb22-00-7104 Note ORIGINAL Images acquired, not reported on this accession number. 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 Patient recently went under long car trip from [place] and had sudden onset of chest pain [...] to the OR and use straight local totry and accomplish pulmonary EKOS at the submassive PE to the right pulmonary artery. I believe therisks outweigh the benefits and I discussed this with her at length and she agrees. Patient will need to be converted from IV heparin to most likely lifelong anticoagulation. 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 She should also undergo hypercoagulable work-up by hematologyoncology but this can be done as an [...] PRO ALDANA MD on 04/24/2023 10:32 AM [id number] Anesthesiology Consult note Patient: ASHLEY TUTTLE Age: [...] karime, Topical, qDay fluticasone nasal 0.05 mg/inh Emmons 50 mcg 1 spray(s), Nostril, each, qDay [...] Resp Rate H 23br/min (APR 24 07:09) JTG287 mmHg (APR 24 07:09) DBP88 mmHg (APR [...] Type 0-10 Pain scale Nail Bed Color [place] Capillary Refill < 2 seconds Heart Rhythm [...] Facial Movement Symmetric resting/crying All Extremity Description [place], Normal for ethnicity Skin Temperature Warm Temperature All Extremities Warm Skin Description [place], Normal for ethnicity Skin Integrity Intact Skin Turgor Elastic Mucous Membrane Color [place] Mucous Membrane Description Moist Neurological Language Able to speak clearly Neurological Symptoms Fatigue Gait Steady Extremity Movement Equal Swallowing Difficulty None Characteristics of Communication Appropriate Characteristics of Speech Clear Facial Symmetry Symmetric Level of Consciousness Alert Aspiration Risk None Eye Opening Response Sugar Spontaneously Best Motor Response Sugar Obeys simple commands Best Verbal Response [place] Oriented Sugar Coma Score 15 SALLY Yes [...] Transport Mode Order Detail MTT with Monitor 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 Form 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 Form 04/24/2023 9:25 EDT Antecubital Left [...] Transport Mode Order Detail MTT with Monitor 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 Form 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 Form 04/23/2023 23:55 EDT Primary Pain [...] Not Appropriate at this Time (Not Done) 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 Form Not Done (Not Done) 04/23/2023 [...] Type 0-10 Pain scale Nail Bed Color [place] Capillary Refill < 2 seconds Dorsalis Pedis Pulse, Left 2+ Normal Dorsalis Pedis Pulse, Right 2+ Normal Radial Pulse, Left 2+ Normal Radial Pulse, Right 2+ Normal Leg edema Right Edema Ratin+ trace/2mm Leg edema Left Edema Ratin+ mild/4mm Cardiac Rhythm Sinus rhythm Monitoring Lead II, V1/MCL1 OH Interval 0.18 second(s) QRS Duration 0.06 second(s) [...] Facial Movement Symmetric resting/crying All Extremity Description [place] Skin Temperature Warm Temperature All Extremities Warm Skin Description Normal for ethnicity Skin Integrity Intact Skin Turgor Elastic Mucous Membrane Color [place] Mucous Membrane Description Moist Neurological Language Able to speak clearly Neurological Symptoms Fatigue Gait Steady Extremity Movement Equal Swallowing Difficulty None Characteristics of Communication Appropriate Characteristics of Speech Clear Facial Symmetry Symmetric Level of Consciousness Alert Aspiration Risk None Eye Opening Response Sugar Spontaneously Best Motor Response [place] Obeys simple commands Best Verbal Response [place] Oriented [place] Coma Score 15 SALLY Yes Left Pupil [...] Intact Skin Turgor Elastic Mucous Membrane Color [place] Mucous Membrane Description Moist 04/23/2023 13:19 EDT [...] Transport Mode Order Detail MTT with Monitor 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 Form 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 Form 04/23/2023 13:18 EDT CAM Mental [...] Alert Aspiration Risk None Eye Opening Response [place] Spontaneously Best Motor Response [place] Obeys simple commands Best Verbal Response [place] Oriented [place] Coma Score 15 SALLY Yes Strength All [...] Type 0-10 Pain scale Nail Bed Color [place] Capillary Refill < 2 seconds Heart Sounds [...] Facial Movement Symmetric resting/crying All Extremity Description [place] Skin Temperature Warm Temperature All Extremities Warm Skin Description Normal for ethnicity Skin Integrity Intact Skin Turgor Elastic Mucous Membrane Color [place] Mucous Membrane Description Moist Sensory Perception Daniel [...] Alert Aspiration Risk None Eye Opening Response [place] Spontaneously Best Motor Response [place] Obeys simple commands Best Verbal Response Sugar Oriented Sugar Coma Score 15 SALLY Yes [...] HI Troponin I High Sensitivity 204.26 ng/L VT 04/23/2023 0:11 EDT Violence Risk Confused No [...] Transport Mode Order Detail MTT with Monitor 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 Assessment and Plan [place] [employer]esthesiologists (ASA) physical status classification: [...] MANUEL DYER MD on 04/24/2023 10:17 AM [id number] Pulmonary Progress note Date of Service 04/24/23 [...] karime, Topical, qDay fluticasone nasal 0.05 mg/inh Emmons 50 mcg 1 spray(s), Nostril, each, qDay [...] lobe emboli 2. Recent car travel from [place] back to [place] 3. History of DVT in sister, likely [...] PRO PETERS MD on 04/24/2023 01:41 PM [facility]edoBqmaljon42-41-0247 Note Date of Service 04/23/23 Chief Complaint [...] karime, Topical, qDay fluticasone nasal 0.05 mg/inh Emmons 50 mcg 1 spray(s), Nostril, each, qDay [...] 2 mL, IV Push, q4h Lab Results 06/16 19:25 WBC: 10.8 Hgb: 13.9 Hct: 40.6 [...] DAISHA WOODWARD MD on 04/24/2023 12:02 AM [facility]edoZbgsahka53-28-4322 Pulmonary Consult note Date of Service 04/23/2023 Reason for Consultation pulmonary embolism, hypoxemia Referring Physician Hospitalist History of Present Illness Ms. Tuttle is a 67-year-old female past medical history hypertension who recently traveled by car to [place] and returned last Tuesday then developed lower extremity edema followed by shortness of breath with chest discomfort, which she describes as heaviness. Symptoms got progressively worse with worsening edema. There is a family history of DVT in her sister. [facility] was found to be [...] lobe emboli 2. Recent car travel from [place] back to [place] 3. History of DVT in sister, likely [...] PRO PETERS MD on 04/23/2023 12:20 PM [id number] History and physical note Date of Service 04/22/2023 Chief Complaint Shortness of breath, lower extremities pain History of Present Illness This is a 67-year-old female who had a past medical history of hypertension who came to the ER complaining of worsening shortness of breath. The patient was recently in and traveled by car for too long [...] ESTEBAN ENGLAND MD on 04/22/2023 06:37 PM [id number] History and physical note Date of Service 04/22/2023 Chief Complaint Shortness of breath, lower extremities pain History of Present Illness This is a 67-year-old female who had a past medical history of hypertension who came to the ER complaining of worsening shortness of breath. The patient was recently in and traveled by car for too long [...] ESTEBAN ENGLAND MD on 04/22/2023 06:37 PM [id number] History and physical note Date of Service 04/22/2023 Chief Complaint Shortness of breath, lower extremities pain History of Present Illness This is a 67-year-old female who had a past medical history of hypertension who came to the ER complaining of worsening shortness of breath. The patient was recently in and traveled by car for too long [...] ESTEBAN ENGLAND MD on 04/22/2023 06:37 PM [id number] Evaluation + Plan noteExtracted from: Title:History and [...] above 90%, ok to move prn with criminal legal assistant if needed Addendum by ESTEBAN ENGLAND MD on April 22, 2023 19:00:52 EDT patient is short of breath will keep her bed rest and reevaluate in [facility] 02-08-2023 NoteHNO ID: [id number] Author: Maria Elena Leal RN Service: ? Author Type: Registered Nurse Type: Nursing Progress Note Filed: 12/15/2022 11:35 AM Note Text: Dr. Fenton notified of BP of 205/89. [facility]23 NoteHNO ID: [id number] Author: Maria Elena Leal RN Service: ? Author Type: Registered Nurse Type: Nursing Progress Note Filed: 12/15/2022 10:53 AM Note Text: Dr. Fenton notified of elevated BP of 200/84. Maria Elena Leal [facility]-11-2023 NoteHNO ID: [id number] Author: Thelma Fenton MD Service: ? Author [...] Use in the nose once daily. ivermectin/metronidazole/niaci (ZGJHHUCTLS-KSXGMAXFOIMA-TNDOCH TOPICAL) Apply to affected area as needed. [...] entered by the nurse and reviewed by ms Nursing Notes: Gila Allen 11/17/2022 2:51 PM [...] knee/foot trouble, denies arthritis (more content not included)...[facility] History of Present illness Narrative* Thelma Fenton [...] Use in the nose once daily. ivermectin/metronidazole/niaci (IRODUUEFRM-NOKKJBQUOJGW-EENELO TOPICAL) Apply to affected area as needed. [...] entered by the nurse and reviewed by ms Nursing Notes: Gila Allen 11/17/2022 2:51 PM [...] patient was offered a surgery/procedure at a [facility]. The provider and patient have [...] be scheduled on 12/15/2022 for colonoscopy at [facility]. Medical Decision Making: Problems: Low: Stable chronic illness Risk: Low: Low risk from testing/treatment Medical Decision Making Level: 3 - Low Thelma Fenton MD [facility] Instructions* Patient Instructions* Thelma Fenton MD [...] If you do not have a responsible truck driver teamster (family member or friend) with you to [...] your exam. 2 10/2019 [facility] Nurse Note* Gila Allen - 11/17/2022 2:50 [...] Colonoscopy: 10/2019 [facility] History of colonic polyps Personal history of colonic polyps Family history of colon cancer Family history of malignant neoplasm of gastrointestinal tract documented [facility] noteNo assessment information availableAdventist Health Valle[facility] Work Phone: Hospital course Narrative No data available for this section [facility] Discharge instructions No data available for this section [facility] Progress note No data available for this section [facility] Reason for referral (narrative)* Outpatient Procedure (Routine) - Authorized Specialty Diagnoses / Procedures Referred By Contac t Referred To Contact [facility] Diagnoses History of colonic polyps Procedures COLONOSCOPY SCREENING COLONOSCOPY FLX DX W/COLLJ SPEC WHEN PFThelma Molina MD [address] [place] [address] [facility] [place] [address] Referral ID Status Reason Start Date Expiration Date Visits Requested Visits Authorized [id number] Authorized Auto-Generat ed Referral 11/17/2022 11/17/2023 1 1 [facility]No reason for referral information availableBloomington Hospital Of [facility] Work Phone: Summary Purpose Family History No Family History Records Found Relationship Condition Age at Onset Recorded Date/T geoff mother Disorder of thyroid Unknown Malignant neoplasm of thyroid gland Unkno wn sister Disorder of thyroid Unknown brother Disorder of thyroid Unknown Advance Directives No Advanced Directives Records Found Advance Directive Response Recorded Date/ Time Do you have a Healthcare Power of Oyster Picker? Yes May 08, 2025 8:00am Chief Complaint [...] section and content) DATE CREATED AUTHOR 11/29/2021 [facility] DATE CREATED AUTHOR AUTHOR'S ORGANIZ ATION 05/21/2023 [facility] ([place]) DATE CREATED AUTHOR AUTHOR'S ORGANIZ ATION 07/14/2023 [facility] DATE CREATED AUTHOR AUTHOR'S ORGANIZ ATION 04/28/2025 [facility] DATE CREATED AUTHOR AUTHOR'S ORGANIZ ATION 06/26/2025 [facility] DATE CREATED AUTHOR AUTHOR'S ORGANIZ ATION 09/04/2025 [facility] Source Comments (unrecognize d section and content) In the event this informatio n is protected by the Federal Confidentiality of Alcohol and Drug Abuse Patient Records regulations: The Federal rules restrict any use of the information to criminally investigate or prosecute any alcohol or drug abuse patient.[facility] Reason for Visit (unrecogniz ed section and content) Reason Comments Colon Consult Care Teams (unrecognized sec tion and content) Board Worker Relationship Specialty Start Date End Date Ld Mon MD [address] [place] [address] PCP - General 04/21/04 Team Status: Active [...] BE BASED ON THE PRIMARY CLINICAL RECORDS. [facility] [employer] [facility]. provides no warranty or guarantee of the accuracy or completeness of information in this document.
[2025-10-29 16:09] LABS: Thyroglobulin, Serum Qt. 11.6 ng/mL (1.5-38.5)
== END | disposition home or self-care (01) ==
LOC: PAVLAB 10:48
PROVIDERS: PCP Nurse Practitioner Family; Referring Provider Internal Medicine Endocrinology, Diabetes & Metabolism; Visit Provider Internal Medicine Endocrinology, Diabetes & Metabolism
DX: C73 Malignant neoplasm of thyroid gland (principal); E89.0 Postprocedural hypothyroidism
CPT/HCPCS: 36415; 84432; 84443; 86800